=== PATIENT | male | born 1930 | race Caucasian/White ===

== ENCOUNTER 2016-03-25 12:56 | Inpatient (IN) | payer MEDICARE, OTHER ==
[2016-03-25] VITALS (7 sets, daily range): BP systolic 100–135; BP diastolic 54–68; PULSE 84–94; RESP 15–20; O2SAT 86–97
[~2016-03-25] VITALS: Ht 182.9 cm; Wt 87.6 kg
[2016-03-25 13:39] LABS: BASOPHILS % (AUTO) 0.5 % (0-3); EOSINOPHILS % (AUTO) 0.7 % (0-5); MONOCYTES % (AUTO) 9.5 % (4-12); Mean Corpuscular Hemoglobin 28.4 pg (27.0-35.0); Mean Corpuscular Volume 93.4 fL (81-100); NEUTROPHILS % (AUTO) 76.6 % (40-74); Platelet Count 105 bil/L (150-400)
--- NOTE | 2016-03-25 14:03 | DRSVH ---
PROCEDURE: X-RAY CHEST ONE VIEW, PORTABLE ([id number]) INDICATIONS: shortness of breath TECHNIQUE: One view of the chest was acquired. COMPARISON: [facility], CR, CHEST 2 VIEW, 01/25/2015, 13:40. [facility], CR, CHEST 2 VIEW , 06/26/2015, 11:58. [facility], CR, CHEST 1 VIEW, 07/09/2015, 17:03. [facility], CR , XR CHEST 1VW (PORTABLE), 10/24/2014, 13:24. FINDINGS: Surgical changes and devices: Median sternotomy. Lungs and pleura: No pleural effusions or pneumothorax. Moderate reticulonodular opacities present b ilaterally, as before, predominantly within the bilateral perihilar locations. There is superimposed mild increased opacity within the bilateral lung bases. Mediastinum: Mediastinal contours appear normal. Heart size is enlarged. Bones and chest wall: No suspicious bony lesions. Overlying soft tissues appear unremarkable. IMPRESSION: Mild basilar interstitial pulmonary opacity, superimposed on chronic appearing fibrosis, consistent with edema versus atypical pneumonia. Dictated by: Siobhan Lowery M.D. on 03/25/2016 at 14:00 Approved by: Siobhan Lowery M.D. on 03/25/2016 at 14:01
--- NOTE | 2016-03-25 14:20 | ED.REPORT ---
HPI-General Illness Date of Service Mar 25, 2016 ED Provider: Sancho Monique PA-C Jerry is a 86-year-old male with a history of CHF with pulmonary hypertension, A. fib, hypertension who presents with chief complaint of bilateral leg swelling. Patient states that the swelling in his legs became worse over the last 2 weeks consequently was progressed past his knees and thighs and now has significant swelling in his penis and testicles. He has gained over 20 pounds since onset. He also reports 3-4 month history of shortness of breath and reduced exercise tolerance. He is able to walk about 20-30 feet until he becomes shortness of breath. He is still able to sleep flat at night. Patient reports he was placed on "strong diuretic" by his primary care provider Dr. Duron on Wednesday however he discussed the case with his winemaker Dr. Poe who feels he should be admitted for IV diuresis. Denies chest pain, palpitations, upper respiratory symptoms, abdominal pain, nausea, vomiting or diarrhea. Nursing Notes Stated Complaint: SWELLING IN BOTH LEGS Chief Complaint: General Complaint Nursing Notes Reviewed: Yes Allergies: Coded Allergies: No Known Allergies (Unverified Allergy, Unknown, 03/30/14) General Time Seen by MD: 13:59 Chief Complaint Other (lower extremity swelling) Hx Obtained From: Patient Arrived By: Walk-in Sudden in Onset?: No Onset Occurred: More than a week ago... Symptom Duration: Since onset Location: : Leg left: Leg right Quality: Painful Radiation: : Does not radiate Severity: Current: Mild Severity: Maximum: Mild Recent Healthcare: No recent hospitalization Similar Sx Previous: No Past Medical History Past Medical History Notes: PCP: Dr. Yoo Past Medical History Emphysema CHF Atrial fibrillation Reports: COPD, Coronary artery disease, Diabetes mellitus, Hypertension Past Surgical History Abdominal aneurysm Popliteal Cyst removal Reports: CABG Family History Noncontributory Smoking History Former Smoker Social History Alcohol Use: "Social" Drug Use: Denies drug use Other Social History: Lives alone, Local resident Ambulatory Status Independent Review of Systems +testicular and penile swelling Full Review of Systems Constitutional: Denies: Chills, Fever Ears / Nose / Throat: Denies: Nasal congestion Respiratory: Reports: Dyspnea on exertion, Shortness of breath, Denies: Non-productive cough, Prod cough, bloody, Prod cough, brown, Prod cough, clear, Prod cough, green, Prod cough, yellow Cardiovascular: Denies: Chest pain, Palpitations GI: Denies: Abdominal pain, Diarrhea, Nausea, Vomiting Musculoskeletal: Reports: Extremity swelling Complete sys rev & neg: except as marked. Physical Exam Vital Signs Vital Signs Date Time Temp Pulse Resp B/P Pulse Ox O2 Delivery O2 Flow Rate FiO2 03/25/16 15:06 85 15 119/54 Room Air 03/25/16 13:04 36.6 87 18 118/68 92 Room Air Initial VS: Reviewed Head / Eyes: Atraumatic, Normocephalic, PERRL ENT: Mucous membranes moist, Conjunctiva normal, No scleral icterus Abdomen / GI: Soft, Non-tender, No guarding, No rebound, No distention Extremities: Vascular intact, Neuro intact, No swelling, No tenderness Skin: Warm, Dry, No cyanosis Neurologic: Alert, Oriented, Nonfocal Psychiatric: Mood/affect normal, Behavior normal, Normal thought content General/Constitutional: Awake, Alert Frail, sitting at the edge of the bed Neck: No midline vertebral tend Neck Vascular: Positive: JVD moderate Respiratory / Chest: Breath sounds = bilat, No respiratory distress Rales / Rhonchi: Positive: Rales diffuse Dyspneic with minimal exertion Cardiovascular: Heart rate NL, Regular rhythm, Heart sounds NL, No murmurs, No rubs, Cap refill not delayed, Peripheral circulation NL Lower Ext Edema: Positive: Bilateral 3+, Pitting Interpretation & Diagnostics Lab Results Interpretation Result Diagram: 03/25/16 1330 03/25/16 1330 Test 03/25/16 13:30 03/25/16 15:12 White Blood Count 5.9th/mm3 (3.8-10.1) Red Blood Count 3.35mil/mm3 (4.40-5.80) Hemoglobin 9.5g/dL (13.8-17.2) Hematocrit 31.3% (41.0-50.0) Mean Corpuscular Volume 93.4fL (81-100) Mean Corpuscular Hemoglobin 28.4pg (27.0-35.0) Mean Corpuscular Hemoglobin Concent 30.4% (32.0-37.0) Red Cell Distribution Width 16.7% (12.3-15.4) Platelet Count 105bil/L (150-400) Neutrophils (%) (Auto) 76.6% (40-74) Lymphocytes (%) (Auto) 12.5% (14-46) Monocytes (%) (Auto) 9.5% (4-12) Eosinophils (%) (Auto) 0.7% (0-5) Basophils (%) (Auto) 0.5% (0-3) Reticulocyte Count,Calculated 2.3% (0.6-2.6) Activated Partial Thromboplast Time 25.9sec (22.8-33.0) Sodium Level 139mEq/L (134-144) Potassium Level 3.4mEq/L (3.5-5.2) Chloride Level 93mEq/L (97-108) Carbon Dioxide Level 25mmol/L (18-29) Blood Urea Nitrogen 67mg/dL (8-27) Creatinine 2.64mg/dL (0.76-1.27) Estimat Glomerular Filtration Rate 25mL/min (>59) Glucose Level 182mg/dL (60-99) Calcium Level 9.3mg/dL (8.5-10.1) Total Bilirubin 1.3mg/dL (0.0-1.2) Aspartate Amino Transf (AST/SGOT) 27U/L (0-50) Alanine Aminotransferase (ALT/SGPT) 16U/L (0-44) Alkaline Phosphatase 119U/L (25-160) Troponin T 0.057ug/L (0.0-0.011) Pro-B-Type Natriuretic Peptide 3961pg/mL (0-486) Total Protein 6.9g/dL (6.4-8.4) Albumin 4.3g/dL (3.4-5.0) Thyroid Stimulating Hormone (TSH) 4.560uIU/mL (0.450-4.500) Hold Davis Top Tube Received (Received) Urine Color Straw (YELLOW) Urine Appearance Clear (CLEAR,HAZY) Urine pH 6.0 (5.0-8.0) Urine Specific [place] 1.005 (1.003-1.035) Urine Protein Negativemg/dL (NEG,TRACE) Urine Glucose (UA) Negativemg/dL (NEGATIVE) Urine Ketones Negativemg/dL (NEGATIVE) Urine Occult Blood Negative (NEGATIVE) Urine Nitrite Negative (NEGATIVE) Urine Bilirubin Negative (NEGATIVE) Urine Urobilinogen Normalmg/dL (NORMAL) Urine Leukocyte Esterase Negative (NEGATIVE) Urine RBC 0-2/hpf (0-2) Urine WBC 0-5/hpf (0-5) Urine Epithelial Cells Occasional/hpf (NONE-MOD) Urine Crystals None seen (NONE SEEN) Urine Bacteria None/hpf (NONE-FEW) Urine Hyaline Casts Occasional/lpf (NONE) Urine Granular Casts None seen (NONE SEEN) Urine Waxy Casts None seen (NONE SEEN) Urine Red Blood Cell Casts None seen (NONE SEEN) Urine White Blood Cell Casts None seen (NONE SEEN) Urine Mucus None seen (None Seen) Urine Trichomonas None seen (NONE SEEN) Urine Yeast None (NONE SEEN) Urinalysis Comment None Urine Culture Reflexed Not indicated Lab Results Interpretation: CBC nonspecific from cytopenia CMP worsening renal insufficiency, creatinine is increased from 2-2.64 Troponin elevated, difficult to interpret this first troponin in the setting of worsening renal insufficiency BNP elevated, also difficult to interpret in the setting of worsening renal insufficiency, clinical exam highly suggestive of congestive heart failure ECG Interpretation ECG Interpretation: I suspect the underlying rhythm is likely atrial flutter Occasional PVCs T wave inversion in V4-V6, I, and AVL that are more prominent then EKG dated 10/24/14 although they are hinted at V5 and V6 in the old EKG Rate: 74 Time: 13:22 Interpreted by: ED physician X-Ray Chest Interpretation Chest Xray Interpretation: IMPRESSION: Mild basilar interstitial pulmonary opacity, superimposed on chronic appearing fibrosis, consistent with edema versus atypical pneumonia. Dictated by: Siobhan Lowery M.D. on 03/25/2016 at 14:00 Interpretation / Wet Read by: Interpret - Radiologist Re-Eval/Medical Decision Med Decision/Clinical Course Dr Ayala. Patient was briefly evaluated by the mid-level provider, but I personally interviewed and examined this patient and following is my dictation. This is an 86-year-old male sent over by Dr. Wyatt in the cardiology clinic for evaluation and admission. The patient has an extensive prior cardiac history, and is followed for chronic CHF, admitted doing okay at the last visit December, presented to the clinic today with a 20+ pound weight gain , obvious CHF, dyspnea on exertion, JVD, Rales and was sent over for further management. The just been seen by the PCPs office and was started a new medication on Wednesday, this turns out to be Metalazone. (5mg). (We called the office to track down the medication change.) Patient has a history of chronic atrial fibrillation, but also has a prior history of intracranial hemorrhage event in the distant past, is on aspirin therapy alone. He denies any sense of chest pain, diaphoresis. On exam his clinical findings of CHF. He is dyspneic with any minimal exertion , and desaturates with minimal movement. He has +3 pitting edema, JVD, and Rales. His EKG has new T-wave abnormality compared to the last EKG that I have for available for comparison. Chest x-ray is consistent with CHF. Lab work demonstrates worsening renal function, elevated troponin, elevated BNP. Troponin elevation is difficult to interpret in the setting of the worsening renal insufficiency. His EKG findings are nonspecific. Symptoms have been progressing over 2 weeks, and acute myocardial infarction within the past day or 2 seems unlikely, recent cardiac event cannot be fully excluded at this time. The patient's systolic blood pressures only just over 125 so he did not have a lot "room" progressive medication. He received IV Lasix, and topical nitrates. He is being admitted for continued management. Case is discussed with the hospitalist and a cardiology consult has been requested. Source of Hx: Old records, Private physician Time of Eval: 14:38 Re-Evaluation/Progress Note: Discussed results, diagnosis, and plan for admission. All questions were addressed. Consultation #1: Referral / Consult Name: Rocael Spicer MD Consulted With: Hospitalist Call Returned at: 14:46 Glass Toughening Operator: Will see patient, Agrees with eval, Agrees with plan, Accepts admit Consultation #2: Referral / Consult Name: Jhonny Baumann MD Consulted With: Cardiology Call Returned at: 15:08 Glass Toughening Operator: Will see patient, Agrees with eval, Agrees with plan Differential Diagnosis: Negative: Abdominal pain, Allergies, Fracture, G-tube repair/replacement, Laceration, Malingering, Medical clearance, Neutropenia, Seizure disorder, Tonsillitis, acute Counseled Regarding: Diagnosis, Lab results, Need for admission Discharge & Departure Primary Impression: CHF (congestive heart failure) Congestive heart failure type: unspecified congestive heart failure type Congestive heart failure chronicity: unspecified congestive heart failure chronicity Qualified Code: I50.9 - Heart failure, unspecified Additional Impressions: Edema Edema type: unspecified Qualified Code: R60.9 - Edema, unspecified Acute renal insufficiency Chronic atrial fibrillation Troponin level elevated Disposition: ADMITTED TO HOSPITAL Discharge Condition All VS Reviewed: Yes Condition: Stable Referrals: Lam Duron MD (PCP) Khoa Attestation Portions of this note were transcribed by Nina Santos. I, Dr. Ayala personally performed the history, physical exam and medical decision-making; I reviewed and confirmed the accuracy of the information in the transcribed note. Signed by: Khoa Obrien, 03/25/2016 at 1555. copies to: Lam Duron MD, Seth PA-C Mar 25, 2016 14:20 Nina Santos Mar 25, 2016 14:26 Pineda Ayala MD Mar 25, 2016 16:03
[2016-03-25 14:21] LABS: TROPONIN T 0.057 ug/L (0.0-0.011)
[2016-03-25] MEDS ORDERED: Furosemide 10 mg/mL 10 mL Inj IVPUSH ONE (14:25)
[2016-03-25] MEDS ORDERED: Nitroglycerin 2% 1 Gm Ointment TOPICAL SCH (14:25)
[2016-03-25] MEDS ORDERED: Senna-Docusate 8.6-50 mg Tablet PO PRN (14:55)
[2016-03-25] MEDS ORDERED: Alum-Mag Hydrox-Simeth 30 mL Suspension PO PRN (14:55)
[2016-03-25] MEDS ORDERED: Polyethylene Glycol (PEG) 17 Gm Powder PO PRN (14:55)
[2016-03-25] MEDS ORDERED: Ondansetron 2 mg/mL 2 mL Inj IVPUSH PRN (14:55)
--- NOTE | 2016-03-25 15:11 | PCM.HPMED ---
Subjective Date of Service Mar 25, 2016 Primary Provider: Admitting Physician: Primary Care Physician: Lam Duron MD Attending Physician: Chief Complaint: Short of breath sent by cardroom attendant HISTORY was OBTAINED FROM PATIENT / [facility] NOTES History of present illness 86-year-old male, on asa for chronic afib, presented with bilateral leg swelling progressively, associated fluid overload of thighs penis testicles, 20 pound weight gain in 2 weeks, shortness of breath for months. No orthopnea. PCP/Alex started another diuretic 3 days ago-metolazone he has been compliant for 3 days and noticed increased UOP. he continued torsemide. Entry Level Sales Consultant Dr. Jefferson sent patient to ER for admission for IV diuresis. No chest pressure no palpitation no URI no diarrhea no vomiting no pain. No cough no nasal congestion In the ER Lasix 60, nitroglycerin 1 inch, 97.7 kg, w/ 500cc UOP Review of Systems - none of the following - F/C/sick contact / TOMAS / lightheaded / dizziness / sob / cough / cp / acid reflux / n/v/diarrhea / / / change in voiding / yeast infections / rash ambulates chronic bruising FAMILY HX NM CVA SOCIAL HX quit smoking when he underwent his 2nd CABG / etoh MEDICATIONS include asa Nitroglycerin patch TeraZosin, unclear if he is on Flomax Xopenex, Brovana lantaprost Past Medical/Surgical HX pulmonary hypertension, A. fib, hypertension, abdominal aneurysm, CABG x 2/NM Glaucoma Diabetes mellitus Emphysema Popliteal cyst Subdural hematoma-divya holes by [facility], off anticoagulation AAA repair at [place] Cholecystectomy with stones, performed because of possible mass, he was told that his liver was "shot" from EtOH likely, chronically elevated bilirubin BPH last saw urologist Dr. Patel mid 2015 Allergies Coded Allergies: No Known Allergies (Unverified Allergy, Unknown, 03/30/14) PMH Social History Hx Alcohol Use: Yes Hx Substance Use: No Smoking Status: Former Smoker Exam Vital Signs Vital Sign - Last Date Time Temp Pulse Resp B/P Pulse Ox O2 Delivery O2 Flow Rate FiO2 03/25/16 15:06 85 15 119/54 Room Air 03/25/16 13:04 36.6 92 Exam Exam on admission Room air, sitting upright, legs dangling NAD A and O x 3 mood affect WNL NC/AT no icterus no injected eyes EOMI PERRL /no pharyngeal lesions/ no oral lesions / hearing intact Supple neck equal chest rise / no accessory muscle use / speaks in full sentences /crackles left greater than right no wheeze RRR S1 S2 / no mrg / 2+ radial pulses Soft nt nd + BS no hepatosplenomegaly severe edema shins/thighs bilateral, no cyanosis no ecchymosis of lower extremities No rash / no jaundice BERNSTEIN symmetrical facies diffuse upper extremity bruising/hematomas superficial uop 500cc in urinal clear s/p 60 laxis EKG afib fltter PVCs Trop 0.05 at 1pm BNP 3961 UA pending LFT normal except bilirubin 1.3 Imaging PROCEDURE: X-RAY CHEST ONE VIEW, PORTABLE ([id number]) INDICATIONS: shortness of breath TECHNIQUE: One view of the chest was acquired. COMPARISON: [facility], CR, CHEST 2 VIEW, 01/25/2015, 13:40. [facility], , CHEST 2 VIEW, 06/26/2015, 11:58. [facility], CR, CHEST 1 VIEW , 07/09/2015, 17:03. [facility], CR, XR CHEST 1VW (PORTABLE), 2014, 13:24. FINDINGS: Surgical changes and devices: Median sternotomy. Lungs and pleura: No pleural effusions or pneumothorax. Moderate reticulonodular opacities present bilaterally, as before, predominantly within the bilateral perihilar locations. There is superimposed mild increased opacity within the bilateral lung bases. Mediastinum: Mediastinal contours appear normal. Heart size is enlarged. Bones and chest wall: No suspicious bony lesions. Overlying soft tissues appear unremarkable. IMPRESSION: Mild basilar interstitial pulmonary opacity, superimposed on chronic appearing fibrosis, consistent with edema versus atypical pneumonia. 09/2015 echo - Interpretation Summary The left ventricle is grossly normal size. The ejection fraction is estimated to be 40-45% (No sig. change from the previous study). There is inferior wall severe hypokinesis. There appears to be severe hypokinesis of inferoseptum, distal posterolateral wall, anteroseptum and the inferoapex. Compared to the prior exam, the base to mid inferior wall and base to mid inferoseptum wall motion abnormalities has increased in severity. The right ventricle is normal size. The right ventricular systolic function is normal. There is mild to moderate mitral regurgitation. Compared to the prior echo study, there has been no change in the severity of mitral regurgitation. There is mild aortic regurgitation. Compared to the prior echo study, there has been no change in the severity of aortic regurgitation. There is moderate to severe tricuspid regurgitation. Compared to the prior echo exam, there has been no change in TR severity. The right ventricular systolic pressure is estimated at 70 mmHg assuming a right atrial pressure of 15 mm Hg. Compared to the prior echo exam, there has been no change in the severity of pulmonary hypertension. Lab and Diagnostics Result Diagram: 03/25/16 1330 03/25/16 1330 Assessment & Plan Active issues present on admission Exacerbation sCHF with more frequent PVCs, WENDY and left shift without leukocytosis --serial trop, echo, i/o, wt daily, fluid restrict --Dr. Baumann to evaluate patient in morning AK I, associated fluid overload, PVCs -- Diurese lasix 60 QDay, pending bladder scan, monitor BP -- already s/p 3 days of outpt metalozone -- Baseline creatinine2 12/2015 --replete K and prn Magnesium Normocytic anemia --pending TSH Thrombocytopenia w/ elevated bilirubin mild --pending - b12, liver/spleen u/s, PTT/INR Chronic issues known prior to admission, present on admission pulmonary hypertension, A. fib, hypertension, abdominal aneurysm, CABG x 2/NM Glaucoma Diabetes mellitus Emphysema --ssi/ nebs prn -- Pending bladder scan, switched to Flomax from TeraZosin while diuresing/ monitoring blood pressure --resume home medications Diet fluid restrict 1.5L/ DM/cardiac diet/sliding scale insulin DVT prophylaxis scd ambulate / hold heparin - monitor thrombocytopenia Code full Disposition inpatient Assessment and plan were discussed with patient Rocael Spicer MD Mar 25, 2016 15:11
[2016-03-25 15:31] LABS: APPEARANCE,URINE CLEAR (CLEAR,HAZY); COLOR,URINE STRAW (YELLOW); OCCULT BLOOD,URINE NEGATIVE (NEGATIVE); UROBILINOGEN,URINE NORMAL (NORMAL)
--- NOTE | 2016-03-25 17:15 | NUR ---
Admission Patient arrived on unit via gurney. Patient alert and oriented. Using urinal at bedside. Denies current chest pain/shortness of breath. Pitting edema from groin down. Patient on 1.5 ltr fluid restriction, room air, nitro paste on chest from ER. Exam interrupted by Echo.
[2016-03-25] MEDS ORDERED: Potassium Chloride 20 mEq SR Tablet PO ONE (17:25)
[2016-03-25] MEDS ORDERED: Albuterol-Ipratropium 3 mL Inhalation Solution NEB PRN (17:30)
[2016-03-25 17:51] LABS: Magnesium 2.6 mg/dL (1.6-2.6)
[2016-03-25] MEDS: Sodium Chloride LOK Flush 10 mL Syringe IVFLUSH SCH (18:26)
[2016-03-25] MEDS ORDERED: NITR1PAT59 TRANSDERM (18:57)
[2016-03-25] MEDS ORDERED: INSU100I13 SUBQ (18:57)
[2016-03-25] MEDS ORDERED: DORZ10DR18 BOTH_EYES (18:57)
[2016-03-25] MEDS ORDERED: ATOR20TA65 PO (18:57)
[2016-03-25] MEDS ORDERED: BRIM5DRO9 LEFT_EYE (18:57)
[2016-03-25] MEDS ORDERED: FOSI20TA3 PO (18:57)
[2016-03-25] MEDS ORDERED: TORS20TA3 PO (18:57)
[2016-03-25] MEDS ORDERED: LATA2.5D6 BOTH_EYES (18:57)
[2016-03-25] MEDS ORDERED: TERA10CA5 PO (18:57)
[2016-03-25] MEDS ORDERED: ZYL100 PO (18:57)
[2016-03-25] MEDS ORDERED: METO25TA3 PO (18:57)
[2016-03-25] MEDS ORDERED: METF500T7 PO (18:57)
--- NOTE | 2016-03-25 19:42 | DRSVH ---
PROCEDURE: US ABDOMEN INDICATIONS: elevated bilirubin and eval splenolmegaly TECHNIQUE: Real-time scanning was performed of the abdominal and retroperitoneal organs, with image documentatio n. COMPARISON: None. FINDINGS: Liver length: 16.40 cm CHD: 5.10 mm CBD: 6.20 mm Spleen length: 15.2 cm Right kidney length: 10.78 cm Left kidney length: 10.77 cm Aorta(Proximal): 3.18 cm RCIA: n.a LCIA: n.a Liver: Liver is normal in size and diffusely increased and heterogeneous echotexture. There is hepa topedal flow of portal vein on both ultrasound. Gallbladder: Gallbladder is surgically removed Biliary ducts: Intrahepatic bile ducts are non-dilated. Extrahepatic bile duct caliber is normal. Normal is 6-7 mm or less in diameter, or 10 mm or less post-cholecystectomy. Pancreas: Pancreas is poorly visualized. Spleen: Spleen is enlarged with the estimated volume of 529 cubic centimeter. Kidneys: Kidneys are normal in size and echotexture. No hydronephrosis or nephrolithiasis. No kinsey d masses. There is a one point centimeters simple cyst in the inferior pole of the left kidney. Aorta: Proximal abdominal aorta is mildly aneurysmal measuring 3.2 cm in diameter. The mid to distal aorta is not well-seen. Iliacs: Proximal common iliac arteries are obscured by overlying bowel gas. IVC: Intrahepatic inferior vena cava is patent. Miscellaneous: There is a small amount of abdominal fluid. IMPRESSION: 1. Liver demonstrates heterogeneously increased echotexture, suspicious for chronic liver disease suc h as hepatitis or cirrhosis. 2. Enlarged spleen. This finding may be secondary to portal hypertension. 3. cholecystectomy. 4. Simple cyst in the lower pole of the left kidney. 5. Mild proximal abdominal aortic aneurysm. Mid to distal aorta not well visualized. 6. A small amount of free fluid. Dictated by: Emilia Gonzalez M.D. on 03/25/2016 at 19:34 Approved by: Emilia Gonzalez M.D. on 03/25/2016 at 19:41
[2016-03-25 20:18] LABS: INR 1.12 ratio
--- NOTE | 2016-03-25 20:30 | NUR ---
MED REC NOT COMPLETED> Requested record from PCP or [facility] Cardiology for recent list. Primary nurse aware.
[2016-03-25 20:36] LABS: Magnesium 2.5 mg/dL (1.6-2.6)
[2016-03-25 20:37] LABS: TROPONIN T 0.046 ug/L (0.0-0.011)
[2016-03-25] MEDS ORDERED: Glucose 40% Oral Gel 15 Gm Tube PO PRN (21:35)
[2016-03-25] MEDS: Insulin LISPRO 300 Unit/3 mL Inj SUBQ SCH (22:00)
[2016-03-25] MEDS: Insulin GLARgine 100 Unit/mL Syringe SUBQ SCH (23:42)
[2016-03-25] MEDS: Dorzolamide 2% 10 mL Ophthalmic Solution BOTH_EYES SCH (23:43)
[2016-03-25] MEDS: Brimonidine 0.2% 5 mL Ophthalmic Solution BOTH_EYES SCH (23:46)
[2016-03-26] VITALS (9 sets, daily range): BP systolic 107–118; BP diastolic 47–71; PULSE 59–98; RESP 16–18; O2SAT 91–96
[2016-03-26] MEDS: Sodium Chloride LOK Flush 10 mL Syringe IVFLUSH SCH ×3 (02:57→15:40)
--- NOTE | 2016-03-26 04:47 | NUR ---
Bladder Patient was bladder scanned after urinating, remaining was 535ml in bladder. Alatorre catheter inserted per orders if remaining volume was greater than 250ml. Catheter is patent. Patient resting, call light within reach. Urine sample sent.
[2016-03-26] MEDS: Furosemide 10 mg/mL 10 mL Inj IVPUSH SCH ×2 (07:48→21:44)
[2016-03-26] MEDS: Insulin LISPRO 300 Unit/3 mL Inj SUBQ SCH ×4 (07:48→21:50)
[2016-03-26] MEDS: MeTOProlol XL 25 mg ER24 Tablet PO SCH (07:49)
[2016-03-26] MEDS: Dorzolamide 2% 10 mL Ophthalmic Solution BOTH_EYES SCH ×2 (07:50→21:44)
[2016-03-26] MEDS: Brimonidine 0.2% 5 mL Ophthalmic Solution BOTH_EYES SCH ×2 (07:50→21:44)
[2016-03-26 08:02] LABS: BASOPHILS % (AUTO) 0.4 % (0-3); EOSINOPHILS % (AUTO) 2.5 % (0-5); MONOCYTES % (AUTO) 11.3 % (4-12); Mean Corpuscular Hemoglobin 28.2 pg (27.0-35.0); Mean Corpuscular Volume 92.8 fL (81-100); Platelet Count 96 bil/L (150-400)
[2016-03-26 08:07] LABS: Phosphorus 4.1 mg/dL (2.5-4.9)
[2016-03-26] MEDS ORDERED: Furosemide 10 mg/mL 10 mL Inj IVPUSH SCH (08:30)
[2016-03-26 08:40] LABS: Magnesium 2.6 mg/dL (1.6-2.6)
[2016-03-26 08:41] LABS: TROPONIN T 0.051 ug/L (0.0-0.011)
--- NOTE | 2016-03-26 13:42 | DRSVH ---
[facility] [address] [place] [address] Echocardiogram Report Name: XIOMARA CONNORS Date : 03/26/2016 Leanna t: 71 in Hospital Exam Location: [facility] Weigh t: 207 lb Gender: Male BSA: 2.2 m2 : 1930 Age: 86 yrs BP: 1 17/59 mmHg Reason For Study: Congestive Heart Failure History: CABG Ordering Physician: HOSPITALIST [facility] Performed By: Adelaida Gasca Referring Physician: Ciara Dubois Interpretation Summary The left ventricle is normal in size. Left ventricular wall thickness is mild-moderately increased. The ejection fraction is estimated to be 45-50%. The right ventricle is normal size. The right ventricular systolic function is normal. There is moderate to severe tricuspid regurgitation. The right ventricular systolic pressure is estimated at 60 mmHg assuming a right atrial pressure of 15 mm Hg. The IVC is dilated (diameter is greater than 2.1 cm) and it collapses less than 50% with a sniff. This suggests a high right atrial pressure of 15 mm Hg. There is no pericardial effusion. No other echocardiographic abnormalities seen. Compared with the prior exam from 09/16/1915, LV systolic function appears mildly improved. The estimated PA pressure is slightly lower. No other significant changes. Procedure: A two-dimensional transthoracic echocardiogram with color flow and Doppler was performed. The study quality was technically difficult. A contrast injection of Definity was performed to improve assessment of LV function. The patient did well with Definity. Comparison is made with the echocardiogram of 09/16/2015. The patient had occasional PVCs during the exam. Left Ventricle: Left ventricular wall thickness is mild-moderately increased. The left ventricle is normal in size. There is no thrombus. The ejection fraction is estimated to be 45-50%. There is apical inferior wall severe hypokinesis. Diastolic function could not be accurately assessed due to atrial fibrillation. Right Ventricle: The right ventricle is normal size. The right ventricular systolic function is normal. Atria: There is severe biatrial enlargement. The atrial septum is aneurysmal. There is no Doppler evidence for an interatrial shunt. Mitral Valve: There is mild mitral annular calcification. The mitral valve leaflets appear thickened, but open well. There is mild mitral regurgitation. Aortic Valve: The aortic valve is not well visualized. There is moderate aortic valve sclerosis. A bicuspid aortic valve cannot be excluded. There is no aortic valve stenosis. There is trace aortic regurgitation. Tricuspid Valve: The tricuspid valve leaflets are thin and pliable. There is moderate to severe tricuspid regurgitation. The right ventricular systolic pressure is estimated at 60 mmHg assuming a right atrial pressure of 15 mm Hg. Pulmonic Valve: The pulmonic valve is not well visualized. There is a trace or physiologic amount of pulmonic regurgitation. Great Vessels: The aortic root is mildly dilated. The ascending aorta is mildly enlarged. The IVC is dilated (diameter is greater than 2.1 cm) and it collapses less than 50% with a sniff. This suggests a high right atrial pressure of 15 mm Hg. Pericardium/ Pleura There is no pericardial effusion. MMode/2D Measurements & Calculations LVIDd: 5.1 cm LA dimension: 4.4 cm RA long axis LVOT diam LVIDs: 4.0 cm FS: 23.1 % LA A2 area: 35.2 cm RA area AoV Opening IVSd: 1.4 cm LA A4 area: 30.8 cm LVPWd: 1.2 cm LA length (vol): 7.1 cm: 30.8 cm Ao root diam LA vol: 129.6 ml RA vol LA vol index : 115.ml Aortic Jxn RA : 53.3 mm2 asc Aorta IVC diam: 2.9 cm Diam: 3.6 cm LV burnette. diameter/BSA LV sys. diameter/BSA RVD1 (basal) TAPSE: 1.3 cm (cm/m^2): 2.4 (cm/m^2): 1.8 Doppler Measurements & Calculations Ao V2 max MV E max alexandre Med Peak E' Alexandre TR max alexandre : 171.0 cm/sec : 103.5 cm/sec : 335.3 cm/sec Ao max P.7 mmHg E/E' med: 13.2 TR max PG Ao mean P.3 mmHg Lat Peak E' Alexandre : 45.1 mmHg LVOT Max Alexandre PA V2 max : 96.2 cm/sec E/E' lat: 9.7 : 85.7 cm/sec E/e' average PA mean PG KENDELL(I,D): 2.1 cm sev ratio: 0.53 PA Accel Time : 0.10 sec MV dec time: 0.17 sec Ao V2 mean LV V1 max PG PA V2 mean : 118.8 cm/sec : 51.9 cm/sec Ao V2 VTI: 33.3 cmLV V1 VTI: 17.6 cm KENDELL(V,D): 2.2 cm2 KENDELL indexed to BSA (cm^2/m^2): 0.95 Reading Physician:01:41 PM
--- NOTE | 2016-03-26 15:02 | NUR ---
spiritual care: pt request Visited with pt who was interested in talking about stephan and mortality. Had an in depth conversation about his spiritual life and thoughts on the after life. Pt would like another visit from a plan rep tomorrow if possible. Spiritual care will continue to follow.
--- NOTE | 2016-03-26 15:36 | CONS ---
[address] [address] CONSULTATION REPORT PATIENT: XIOMARA CONNORS : 1930 MR#: [id number] ADMIT: 03/25/2016 JOB ID: [id number] DATE OF SERVICE: 03/26/2016 CARDIOLOGY CONSULTATION: I have been asked by the hospitalist to see the patient and assist with his evaluation and management. The patient is a delightful 86-year-old gentleman with a long history of chronic ischemic heart disease and peripheral arterial disease who has a history over the past four months of progressive dyspnea and was seen by Dr. Poe yesterday in the clinic with evidence of anasarca and a 20-30 pounds weight gain over the past 2-3 weeks. He had been started up on additional diuretic therapy by his primary care provider, but Dr. Poe rightly thought that he would benefit from hospitalization for aggressive intravenous diuretic therapy and further evaluation. The patient's past cardiac history dates back to 1982 when he underwent five-vessel coronary bypass graft surgery in [place]. Ten years later, he underwent repeat cardiac surgery in [place] with a six-vessel bypass graft surgery. He has had fairly significant venectomies in both lower extremities as a result. He has done well over the years since without symptoms of angina and previous echocardiograms have demonstrated inferior or inferoapical left ventricular wall motion abnormality with overall ejection fractions estimated in the 40-50 range. The patient also has a history of COPD with a past history of smoking. His evaluation including multiple CT scans in the past has demonstrated evidence of emphysema but also in the past four years he has had a persistent left mid lung field infiltrate with mediastinal adenopathy which has not progressed, but is slightly improved during that period of time, but the etiology remains obscure. In recent months he was aware of increased dyspnea in addition to intermittent episodes of hemoptysis and was referred by his primary care physician to a mobility specialist in [place] who felt that he might have lung cancer. He apparently was hospitalized and underwent an evaluation which included bronchoscopy which was indeterminate. They discussed with him the possibility of doing a transcutaneous biopsy but he was not interested in proceeding further. This gentleman wears oxygen at home most of the time which he has done for the past few months. He has not had recent symptoms of hemoptysis but admits to functional class three dyspnea and perhaps some symptoms of orthopnea. His lower extremity edema was quite prominent and rapidly evolved to include his thighs, hips and scrotal area. The patient also has a history of chronic atrial fib or atypical flutter. He is not on anticoagulation due to history of head trauma and subdural hematoma in the past. His other medical problems include some degree of hepatic cirrhosis and splenomegaly recently identified. He is anemic. He has chronic renal insufficiency and diabetes. He underwent endovascular repair of an abdominal aortic aneurysm in [place] within the last few years as well. MEDICATIONS: Included: 1. Allopurinol. 2. Low-dose aspirin daily. 3. Pulmonary bronchodilator inhalers and oxygen therapy. 4. Colchicine as needed for gout. 5. Crestor 20 mg a day. 6. Lisinopril 20 mg daily. 7. Insulin. 8. Metformin 1000 mg in the morning and 500 mg in the morning and evening. 9. He was recently started up on metolazone 5 mg a day. 10. He was on low-dose metoprolol at 25 mg succinate daily. 11. In addition to a Nitro-Dur transdermal patch 0.4 mg/hour. 12. Potassium chloride 8 mEq daily. 13. Terazosin 10 mg daily. 14. Torsemide 40 mg b.i.d. REVIEW OF SYSTEMS: Include muscle weakness, easy bruising in addition to his weight gain, edema and chronic dyspnea. He denies any angina or any awareness of his palpitations. He has had no syncope or near syncope. ALLERGIES: None known. SOCIAL HISTORY: This patient lives by himself in [place]. He is able to take care of all of his usual activities and chores without any difficulty generally. PHYSICAL EXAMINATION: Shows a very pleasant, youthful appearing 86-year-old gentleman, 6 feet tall and 210 pounds. He has a slight jaundiced appearance. He has diffuse ecchymoses over both forearms with scattered petechiae noted elsewhere. His jugular venous pressure is markedly elevated. His lung gallo actually sound reasonably clear with some degree of egophony in the left mid lung field, but I do not hear any obvious rales or wheezes. Cardiac examination demonstrates an irregularly irregular rhythm. The first heart sound is somewhat variable, second heart sound is single. I do not hear a ventricular gallop. There is a grade 2/6 holosystolic murmur heard along the lower left sternal border. Abdomen is moderately protuberant but I do not detect obvious ascites. The liver edge is not readily palpable nor is the spleen. He has no abdominal tenderness. He has 4+ lower extremity edema with bilaterally venectomy scars and mild venous insufficiency changes. No focal neurologic findings noted. LABORATORY WORK: Is notable for a mild hypokalemia this morning. His creatinine is high at 2.6 with a baseline in the region of 2-2.3. Blood sugar is moderately increased at 182. His total bilirubin 1.3. Troponin levels are moderately elevated but without any rise and fall. TSH level is borderline high. BNP is moderately increased at 3961. He is anemic with a hemoglobin of 8.6, hematocrit of 28.3. His white count is normal but his platelet count is low at 96,000. A ProTime is normal. Chest x-ray shows evidence of previous surgery. Significant increase in pulmonary interstitial infiltrates in both lower lung gallo. He has evidence of moderate aortic root calcification. EKG shows a low amplitude atypical flutter with variable conduction. No diagnostic Q-waves noted. Nonspecific ST and T-wave abnormalities seen. IMPRESSION: This gentleman presents with a rapidly progressive edema related to high central venous filling pressures in the setting of moderate chronic pulmonary hypertension. In part this may be related to a decline in his renal function since his echocardiogram does not show significant changes. His pulmonary hypertension is likely secondary to his chronic obstructive lung disease with a combination of emphysema, chronic pulmonary infiltrates and mediastinal adenopathy and some question about possible lung cancer. He has evidence of mild hepatic cirrhosis with splenomegaly and thrombocytopenia. The etiology of his hepatic cirrhosis is not certain. He has had a martini he states on a regular basis for the past 30 years, but does not have a history of remarkably heavy alcohol intake. He may have had some degree of chronic hepatic congestion to account for this as well. At this point, I think it is reasonable to be aggressive with intravenous diuretic therapy. Intravenous Lasix and I would go ahead and add spironolactone to help with his potassium, particularly in the setting of his liver disease. In addition, I would pursue gathering further information regarding the extent of his pulmonary disease. Records from his recent hospitalization at [facility] and his pulmonary evaluation I think would be useful. One of my partners will be seeing this gentleman tomorrow and over the weekend for followup.
--- NOTE | 2016-03-26 17:43 | PCM.PNMED ---
Subjective Date of Service Mar 26, 2016 Subjective Patient reports that he is doing well overall. Patient notes that the edema in his scrotum and thighs seems to be decreasing. Patient reports some intermittent shortness of breath. Patient denies any chest pain, nausea, vomiting, diarrhea, fever or chills. Exam Vital Signs Vital Sign - Last Date Time Temp Pulse Resp B/P Pulse Ox O2 Delivery O2 Flow Rate FiO2 03/26/16 15:58 36.6 84 18 111/62 93 Nasal Cannula 2.00 Intake and Output 03/25/16 03/25/16 03/26/16 Cumulative From/Thru 15:00 23:00 07:00 03/25/16 13:04 - 03/26/16 06:11 Intake Total 200 ml 400 ml 600 ml Output Total 500 ml 2385 ml 2885 ml Balance -300 ml -1985 ml -2285 ml Intake Oral 200 ml 400 ml 600 ml Output Urine Total 500 ml 2385 ml 2885 ml # Voids 1 1 # Bowel Movements 1 1 Exam General: No acute distress, well-developed, well-nourished, appropriately interactive HEENT: Normocephalic, atraumatic. External ears without defect. Moist conjunctivae. Oropharynx with moist mucosa. Neck: Supple with full range of motion. Cardiovascular: Regular rate and rhythm with no murmurs, rubs, or gallops appreciated Pulmonary: Clear to auscultation bilaterally with no crackles, wheezes, or rhonchi. Normal respiratory effort with no use of accessory muscles. Abdomen: Bowel tones present. Soft, nontender, nondistended. Extremities: 2-3+ pitting edema of the lower extremities bilaterally. Chronic venous stasis changes bilaterally. Scrotum no longer edematous Psychiatric: Normal mood and affect. Alert and oriented to person, place, and time. IVs and Medications Medications Reviewed: Medications were reviewed in detail Lab and Diagnostics Result Diagram: 03/26/1662903/26/16629 X-Rays, CTs and MRIs PROCEDURE: X-RAY CHEST ONE VIEW, PORTABLE ([id number]) INDICATIONS: shortness of breath TECHNIQUE: One view of the chest was acquired. COMPARISON: [facility], CHEST 2 VIEW, 01/25/2015, 13:40. [facility], CHEST 2 VIEW, 06/26/2015, 11:58. [facility], CR, CHEST 1 VIEW , 07/09/2015, 17:03. [facility], CR, XR CHEST 1VW (PORTABLE), 2014, 13:24. FINDINGS: Surgical changes and devices: Median sternotomy. Lungs and pleura: No pleural effusions or pneumothorax. Moderate reticulonodular opacities present bilaterally, as before, predominantly within the bilateral perihilar locations. There is superimposed mild increased opacity within the bilateral lung bases. Mediastinum: Mediastinal contours appear normal. Heart size is enlarged. Bones and chest wall: No suspicious bony lesions. Overlying soft tissues appear unremarkable. IMPRESSION: Mild basilar interstitial pulmonary opacity, superimposed on chronic appearing fibrosis, consistent with edema versus atypical pneumonia. Dictated by: Siobhan Lowery M.D. on 03/25/2016 at 14:00 Approved by: Siobhan Lowery M.D. on 03/25/2016 at 14:01 PROCEDURE: US ABDOMEN INDICATIONS: elevated bilirubin and eval splenolmegaly TECHNIQUE: Real-time scanning was performed of the abdominal and retroperitoneal organs, with image documentation. COMPARISON: None. FINDINGS: Liver length: 16.40 cm CHD: 5.10 mm CBD: 6.20 mm Spleen length: 15.2 cm Right kidney length: 10.78 cm Left kidney length: 10.77 cm Aorta(Proximal): 3.18 cm RCIA: n.a LCIA: n.a Liver: Liver is normal in size and diffusely increased and heterogeneous echotexture. There is hepatopedal flow of portal vein on both ultrasound. Gallbladder: Gallbladder is surgically removed Biliary ducts: Intrahepatic bile ducts are non-dilated. Extrahepatic bile duct caliber is normal. Normal is 6-7 mm or less in diameter, or 10 mm or less post-cholecystectomy. Pancreas: Pancreas is poorly visualized. Spleen: Spleen is enlarged with the estimated volume of 529 cubic centimeter. Kidneys: Kidneys are normal in size and echotexture. No hydronephrosis or nephrolithiasis. No solid masses. There is a one point centimeters simple cyst in the inferior pole of the left kidney. Aorta: Proximal abdominal aorta is mildly aneurysmal measuring 3.2 cm in diameter. The mid to distal aorta is not well-seen. Iliacs: Proximal common iliac arteries are obscured by overlying bowel gas. IVC: Intrahepatic inferior vena cava is patent. Miscellaneous: There is a small amount of abdominal fluid. IMPRESSION: 1. Liver demonstrates heterogeneously increased echotexture, suspicious for chronic liver disease such as hepatitis or cirrhosis. 2. Enlarged spleen. This finding may be secondary to portal hypertension. 3. cholecystectomy. 4. Simple cyst in the lower pole of the left kidney. 5. Mild proximal abdominal aortic aneurysm. Mid to distal aorta not well visualized. 6. A small amount of free fluid. Dictated by: Emilia Gonzalez M.D. on 03/25/2016 at 19:34 Approved by: Emilia Gonzalez M.D. on 03/25/2016 at 19:41 Cardiac Echo Impressions Interpretation Summary The left ventricle is normal in size. Left ventricular wall thickness is mild-moderately increased. The ejection fraction is estimated to be 45-50%. The right ventricle is normal size. The right ventricular systolic function is normal. There is moderate to severe tricuspid regurgitation. The right ventricular systolic pressure is estimated at 60 mmHg assuming a right atrial pressure of 15 mm Hg. The IVC is dilated (diameter is greater than 2.1 cm) and it collapses less than 50% with a sniff. This suggests a high right atrial pressure of 15 mm Hg. There is no pericardial effusion. No other echocardiographic abnormalities seen. Compared with the prior exam from 09/16/1915, LV systolic function appears mildly improved. The estimated PA pressure is slightly lower. No other significant changes. Reading Physician:01:41 PM Assessment & Plan Exacerbation sCHF with more frequent PVCs -After discussing the case with Dr. Baumann of cardiology it was decided that the patient does not in fact have congestive heart failure Acute anasarca secondary to tricuspid regurgitation, pulmonary hypertension, and renal insufficiency -Echocardiogram performed today please see Dr. Baumann report -Continue to diurese patient with Lasix IV 60 mg twice a day -Monitor I's and O's carefully -BNP tomorrow -Repeat chest x-ray in the morning Chronic kidney disease, is not on admission, ongoing -Monitor labs daily -Nephrology has been consulted to assist with managing elevated creatinine and anasarca Chronic anemia likely secondary to chronic kidney disease -Continue to monitor Thrombocytopenia, present on admission, ongoing -Ultrasound demonstrating heterogeneously increased echotexture suspicious for chronic liver disease such as hepatitis or cirrhosis -Recommend patient has outpatient follow-up regarding this issue Chronic issues known prior to admission, present on admission pulmonary hypertension, A. fib, hypertension, abdominal aneurysm, CABG x 2/VT Glaucoma Diabetes mellitus Emphysema Diet fluid restrict 1.5L/ DM/cardiac diet/sliding scale insulin DVT prophylaxis scd ambulate / hold heparin - monitor thrombocytopenia Code full Attending Statement The patient was seen and examined together with Dr. Jones on 03-26-16 and I agree with the history, exam and plan as outlined in the note above. Fauzia Jones DO Mar 26, 2016 17:42 Brenna Melgar MD Mar 27, 2016 08:45
--- NOTE | 2016-03-26 18:12 | NUR ---
Uneventful shift Pt has rested quietly thorough out shift, A/OX3, no complains of chest discomfrt/pressure, SOB or N/V. Edema decreasing bilaterally in lower extremities. 2L O2 via NC, pt uses O2 at home, santana catheter draining yellow urine to gravity. Frequent rounding in place, will continue to monitor.
[2016-03-26] MEDS ORDERED: Insulin GLARgine 100 Unit/mL Syringe SUBQ SCH (21:00)
[2016-03-26] MEDS: Insulin GLARgine 100 Unit/mL Syringe SUBQ SCH (21:48)
[2016-03-27] VITALS (10 sets, daily range): BP systolic 100–113; BP diastolic 40–74; PULSE 65–83; RESP 15–18; O2SAT 91–97
[2016-03-27] MEDS: Sodium Chloride LOK Flush 10 mL Syringe IVFLUSH SCH ×4 (01:14→20:17)
--- NOTE | 2016-03-27 04:53 | NUR ---
Shift Note Pt has been resting on and off throughout shift, on 2L via NC, fluid restriction 1500mL, santana drained 2500mL, Lasix 60mg IVP BID, A&Ox3, ind. to bathroom w/ mild SOB but otherwise no c/o of SOB. Bed down and locked, call light in reach.
[2016-03-27 06:30] LABS: MONOCYTES % (AUTO) 13.9 % (4-12)
[2016-03-27 06:37] LABS: BASOPHILS % (AUTO) 0.6 % (0-3); EOSINOPHILS % (AUTO) 2.6 % (0-5); Mean Corpuscular Hemoglobin 27.6 pg (27.0-35.0); Mean Corpuscular Volume 93.1 fL (81-100); NEUTROPHILS % (AUTO) 64.4 % (40-74); Platelet Count 101 bil/L (150-400)
[2016-03-27] MEDS: Furosemide 10 mg/mL 10 mL Inj IVPUSH SCH ×2 (07:56→20:16)
[2016-03-27] MEDS: Dorzolamide 2% 10 mL Ophthalmic Solution BOTH_EYES SCH ×2 (07:57→20:15)
[2016-03-27] MEDS: Insulin LISPRO 300 Unit/3 mL Inj SUBQ SCH ×4 (07:57→20:15)
[2016-03-27] MEDS: Brimonidine 0.2% 5 mL Ophthalmic Solution BOTH_EYES SCH ×2 (07:57→20:15)
[2016-03-27] MEDS: MeTOProlol XL 25 mg ER24 Tablet PO SCH (07:57)
[2016-03-27] MEDS ORDERED: KCl 40 mEq/D5W 500 mL 40 MEQ in IV Premix 1 EACH IV ONE (08:10)
--- NOTE | 2016-03-27 08:22 | DRSVH ---
PROCEDURE: X-RAY CHEST ONE VIEW, PORTABLE ([id number]) INDICATIONS: cough TECHNIQUE: One view of the chest was acquired. COMPARISON: [facility], CR, XR CHEST 1VW (PORTABLE), 03/25/2016, 13:38. FINDINGS: Surgical changes and devices: Post median sternotomy. Lungs and pleura: Interstitium is prominent mild edema is suspected. There is interval increase in a irspace opacity within the right upper lobe. No pleural effusion or pneumothorax. Mediastinum: Mediastinal contours appear normal. Heart size is normal. Bones and chest wall: No suspicious bony lesions. Overlying soft tissues appear unremarkable. Mult iple healed left posterior-lateral rib fractures. IMPRESSION: Pulmonary edema is suspected and airspace opacity within the right upper lobe suspicious for pneumonia. Dictated by: Suhail Cavanaugh [facility] Interpreted: Emily Donis MD on 03/27/2016 at 8:20 Transcribed by: VALERIA on 03/27/2016 at 8:22 Approved by: Emily Donis M.D. on 03/27/2016 at 16:00
[2016-03-27] MEDS ORDERED: 0.9% Sodium Chloride 250 ML ONE (10:10)
--- NOTE | 2016-03-27 11:01 | NUR ---
spiritual care: follow up Visited with pt who spoke of family and stephan. Blessed him before leaving the room. Spiritual care will continue to follow as needed.
[2016-03-27] MEDS: Potassium Chloride 20 mEq SR Tablet PO SCH (12:06)
--- NOTE | 2016-03-27 14:46 | CONS ---
[address] [address] CONSULTATION REPORT PATIENT: XIOMARA CONNORS : 1930 MR#: [id number] ADMIT: 03/25/2016 JOB ID: [id number] DATE OF SERVICE: 03/27/2016 RENAL CONSULTATION: HISTORY OF PRESENT ILLNESS: The patient is a very pleasant and spry-appearing 86-year-old white male who was admitted for what appears to be decompensated heart failure. He also has evidence of chronic kidney disease and renal consultation is being sought for further evaluation and management of his chronic kidney disease and assisting with his diuresis. He has a very extensive cardiac history and has had several myocardial infarctions beginning in 1976. In 1982 he underwent a coronary artery bypass graft and this was repeated again 10 years later in 1992. Since that time he states that he has been doing well. He is normally seen by Dr. Poe from cardiology. Over the last few weeks he has had progressive weight gain, increasing lower extremity edema, and increasing abdominal girth. He was admitted to the hospital and at time of admission his BUN and creatinine were elevated at 67 and 2.64. He was diuresed with some improvement in his renal function to where today his BUN and creatinine were 64 and 2.31. We do not have any recent lab on him; his most recent creatinine that we do have is from October 2014, where it was 1.5. He denies a history of any prior renal problems. There is a history of benign prostatic hypertrophy and occasional use of nonsteroidal anti-inflammatories. He denies a history of any hematuria, proteinuria, recurrent urinary tract infections, renal lithiasis, hepatitis, or difficulty in urination. He states that he has not had any recent chest pain with this, nor any orthopnea or PND. His main concern was his increasing weight and lower extremity edema. He denies any severe headache, visual problems, wheezing, cough, or recurrent nausea, vomiting, constipation, or diarrhea. He denies any fever or chills. There is also a history of insulin-requiring diabetes mellitus which has been of about 10 years duration. His last eye exam was approximately four months ago. He denies a history of any retinopathy, peripheral neuropathy, or diabetic renal disease. He also denies a history of hypertension, although I see this clearly documented in his record. Of note, he also has a history of benign prostatic hypertrophy and an endovascular AAA repair some time ago. PAST MEDICAL HISTORY: Significant for coronary artery disease, systolic heart failure with an ejection fraction of approximately 40% to 45%, insulin-requiring diabetes mellitus, COPD with a history of right-sided heart failure, AAA repair, and a subdural hematoma requiring several bur holes to be placed. PAST SURGICAL HISTORY: Significant for the endovascular AAA repair, subdural hematoma repair, and two coronary artery bypass grafts. ALLERGIES: He is not allergic to any food or any medication. SOCIAL HISTORY: He is retired from the and from the [employer]. He has a history of tobacco use but has not smoked in over 25 years. He denies any ethanol intake and states until recently he was able to perform his activities of daily living without significant problems or restriction. MEDICATIONS: At time of my evaluation include nitroglycerin, potassium chloride, allopurinol, atorvastatin, insulin, metoprolol, Lasix, several eye medications, DuoNeb, and tamsulosin. FAMILY HISTORY: Noncontributory. REVIEW OF SYSTEMS: As detailed above. Otherwise is unremarkable. PHYSICAL EXAMINATION: Revealed a healthy-appearing 86-year-old white male who was alert and oriented x3, in no distress at time of my evaluation. His blood pressure is 103/40 with a pulse rate of 68. HEENT: Remarkable for pale sclerae. Neck: Supple, without adenopathy or thyromegaly. He did have moderate jugular venous distention of approximately 60 degrees' elevation. Lungs: Showed some increase in AP diameter bilaterally, but otherwise were clear. Heart was regular and rhythmical, with a soft systolic murmur. Abdomen was soft, with a small amount of fluid noted in both flank areas. There was no tenderness, rebound, or guarding noted. His liver was a bit enlarged and was pulsatile to mild palpation. He also had evidence of hepatojugular reflux. Extremities showed evidence of brawny induration in both distal lower extremities. There was some mild lower extremity edema noted bilaterally. There was no clubbing cyanosis noted. Skin turgor was good. There was no evidence of any rashes. LABORATORY EXAMINATION: This morning his sodium is 140, potassium 2.9, chloride 95, CO2 of 30, BUN and creatinine were 64 and 2.3, glucose is 148. Liver function studies were normal. His albumin is 3.8. Urinalysis on admission showed a specific gravity 1.005, pH was 5. Tests for glucose, ketones, blood, and protein were all negative, as was the microscopic examination. This morning his white count was 5.5, hemoglobin of 8.4, hematocrit 28.3. Red cell indices, platelet count, and differential were normal. IMPRESSION: 1. Mild acute kidney injury secondary to right-sided decompensated heart failure. 2. 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 3. Hypertension with hypertensive heart disease and hypertensive nephrosclerosis. 4. Anemia secondary to chronic kidney disease. RECOMMENDATION: I have discussed the case with Dr. Emanuel and I feel that spironolactone 25 mg daily is quite reasonable to start with. I would also like to get a serum protein electrophoresis, a repeat uric acid, a urine for protein, a microalbumin to creatinine ratio, iron, and TIBC. Most likely I will start him on 60 mg of Aranesp now. Once again, I would like to thank you for allowing me to participate in the care of this most pleasant and interesting patient. I will be following him closely with you.
--- NOTE | 2016-03-27 18:05 | NUR ---
Shift Report Pt on 2L via NC. Fluid restriction of 1500mL (1000ml during day, 500ml at night). Alatorre draining mariluz urine to gravity. Lasix given BID. A&Ox3. Pt independent to bathroom w/mild SOB. Pt resting throughout day. Pt has very little feeling in lower limbs and feet. No complaints of chest pain/discomfort. No pain throughout shift. Will continue to monitor.
[2016-03-27] MEDS: Insulin GLARgine 100 Unit/mL Syringe SUBQ SCH (20:16)
--- NOTE | 2016-03-27 21:29 | PCM.PNMED ---
Subjective Date of Service Mar 27, 2016 Subjective Patient reports that his lower extremity edema is improving. He states that the scrotal edema has completely resolved. He states that he is very fatigued. He denies any shortness of breath, chest pain , nausea, vomiting or diarrhea. Pt denies any other complaints. Exam Vital Signs Vital Sign - Last Date Time Temp Pulse Resp B/P Pulse Ox O2 Delivery O2 Flow Rate FiO2 03/27/16 21:05 36.8 78 18 113/74 94 Room Air 03/27/16 05:20 2.00 Intake and Output 03/26/16 03/26/16 03/27/16 Cumulative From/Thru 15:00 23:00 07:00 03/25/16 13:04 - 03/27/16 06:32 Intake Total 800 ml 400 ml 1800 ml Output Total 2200 ml 2500 ml 7585 ml Balance -1400 ml -2100 ml -5785 ml Intake Oral 800 ml 400 ml 1800 ml Output Urine Total 2200 ml 2500 ml 7585 ml # Voids 1 # Bowel Movements 1 Exam General: No acute distress, well-developed, well-nourished, appropriately interactive HEENT: Normocephalic, atraumatic. External ears without defect. Moist conjunctivae. Oropharynx with moist mucosa. Neck: Supple with full range of motion. Cardiovascular: Regular rate and rhythm with systolic murmurs, no rubs, or gallops appreciated Pulmonary: Clear to auscultation bilaterally with no crackles, wheezes, or rhonchi. Normal respiratory effort with no use of accessory muscles. Abdomen: Bowel tones present. Soft, nontender, nondistended. Extremities: pitting edema of the lower extremities bilaterally is improved from previous physical exam.. Chronic venous stasis changes bilaterally. Scrotum not edematous Psychiatric: Normal mood and affect. Alert and oriented to person, place, and time. IVs and Medications Medications Reviewed: Medications were reviewed in detail Lab and Diagnostics Result Diagram: 03/27/16 0610 03/27/16 1645 X-Rays, CTs and MRIs PROCEDURE: X-RAY CHEST ONE VIEW, PORTABLE ([id number]) INDICATIONS: shortness of breath TECHNIQUE: One view of the chest was acquired. COMPARISON: [facility], CHEST 2 VIEW, 01/25/2015, 13:40. [facility], CHEST 2 VIEW, 06/26/2015, 11:58. [facility], CR, CHEST 1 VIEW , 07/09/2015, 17:03. [facility], CR, XR CHEST 1VW (PORTABLE), 2014, 13:24. FINDINGS: Surgical changes and devices: Median sternotomy. Lungs and pleura: No pleural effusions or pneumothorax. Moderate reticulonodular opacities present bilaterally, as before, predominantly within the bilateral perihilar locations. There is superimposed mild increased opacity within the bilateral lung bases. Mediastinum: Mediastinal contours appear normal. Heart size is enlarged. Bones and chest wall: No suspicious bony lesions. Overlying soft tissues appear unremarkable. IMPRESSION: Mild basilar interstitial pulmonary opacity, superimposed on chronic appearing fibrosis, consistent with edema versus atypical pneumonia. Dictated by: Siobhan Lowery M.D. on 03/25/2016 at 14:00 Approved by: Siobhan Lowery M.D. on 03/25/2016 at 14:01 PROCEDURE: US ABDOMEN INDICATIONS: elevated bilirubin and eval splenolmegaly TECHNIQUE: Real-time scanning was performed of the abdominal and retroperitoneal organs, with image documentation. COMPARISON: None. FINDINGS: Liver length: 16.40 cm CHD: 5.10 mm CBD: 6.20 mm Spleen length: 15.2 cm Right kidney length: 10.78 cm Left kidney length: 10.77 cm Aorta(Proximal): 3.18 cm RCIA: n.a LCIA: n.a Liver: Liver is normal in size and diffusely increased and heterogeneous echotexture. There is hepatopedal flow of portal vein on both ultrasound. Gallbladder: Gallbladder is surgically removed Biliary ducts: Intrahepatic bile ducts are non-dilated. Extrahepatic bile duct caliber is normal. Normal is 6-7 mm or less in diameter, or 10 mm or less post-cholecystectomy. Pancreas: Pancreas is poorly visualized. Spleen: Spleen is enlarged with the estimated volume of 529 cubic centimeter. Kidneys: Kidneys are normal in size and echotexture. No hydronephrosis or nephrolithiasis. No solid masses. There is a one point centimeters simple cyst in the inferior pole of the left kidney. Aorta: Proximal abdominal aorta is mildly aneurysmal measuring 3.2 cm in diameter. The mid to distal aorta is not well-seen. Iliacs: Proximal common iliac arteries are obscured by overlying bowel gas. IVC: Intrahepatic inferior vena cava is patent. Miscellaneous: There is a small amount of abdominal fluid. IMPRESSION: 1. Liver demonstrates heterogeneously increased echotexture, suspicious for chronic liver disease such as hepatitis or cirrhosis. 2. Enlarged spleen. This finding may be secondary to portal hypertension. 3. cholecystectomy. 4. Simple cyst in the lower pole of the left kidney. 5. Mild proximal abdominal aortic aneurysm. Mid to distal aorta not well visualized. 6. A small amount of free fluid. Dictated by: Emilia Gonzalez M.D. on 03/25/2016 at 19:34 Approved by: Emilia Gonzalez M.D. on 03/25/2016 at 19:41 Cardiac Echo Impressions Interpretation Summary The left ventricle is normal in size. Left ventricular wall thickness is mild-moderately increased. The ejection fraction is estimated to be 45-50%. The right ventricle is normal size. The right ventricular systolic function is normal. There is moderate to severe tricuspid regurgitation. The right ventricular systolic pressure is estimated at 60 mmHg assuming a right atrial pressure of 15 mm Hg. The IVC is dilated (diameter is greater than 2.1 cm) and it collapses less than 50% with a sniff. This suggests a high right atrial pressure of 15 mm Hg. There is no pericardial effusion. No other echocardiographic abnormalities seen. Compared with the prior exam from 09/16/1915, LV systolic function appears mildly improved. The estimated PA pressure is slightly lower. No other significant changes. Reading Physician:01:41 PM Assessment & Plan 1.Exacerbation sCHF with more frequent PVCs -Dr. Baumann of cardiology does not feel that the patient has congestive heart failure -ECHO demonstrates an EF of 45-50%, with LV thickness increased -Nephrology was consulted and feels that patient has right sided decompensated heart failure 2.Acute anasarca secondary to tricuspid regurgitation, pulmonary hypertension, and renal insufficiency -Continue to diurese patient with Lasix IV 60 mg twice a day -Monitor I's and O's carefully -BNP tomorrow -Repeat chest x-ray in the morning 3.Hypokalemia, not present on admission, ongoing -40 IV KCL administered today -Continue to monitor with daily labs. - PO potassium added to regimen 4.Chronic kidney disease stage 3 or 4, ongoing -Monitor labs daily -Nephrology has been consulted we appreciate their input -Nephrology has added Spironolactone 25 mg and Aranesp 60mg daily. 5.Chronic anemia likely secondary to chronic kidney disease -Continue to monitor 6.Thrombocytopenia, present on admission, ongoing -Ultrasound demonstrating heterogeneously increased echotexture suspicious for chronic liver disease such as hepatitis or cirrhosis -Recommend patient has outpatient follow-up regarding this issue Chronic issues known prior to admission, present on admission 7.pulmonary hypertension, A. fib, hypertension, abdominal aneurysm, CABG x 2/SC 8.Glaucoma 9.Diabetes mellitus 10.Emphysema Diet fluid restrict 1.5L/ DM/cardiac diet/sliding scale insulin DVT prophylaxis scd ambulate / hold heparin - monitor thrombocytopenia Code full VTE Mechanical Devices: Intermittant Pneumatic CD Attending Statement The patient was seen and examined together with Dr. Jones on 03-27-16 and I agree with the history, exam and plan as outlined in the note above. Fauzia Jones DO Mar 27, 2016 21:29 Brenna Melgar MD Mar 28, 2016 08:24
--- NOTE | 2016-03-27 23:13 | NUR ---
Cardiac Pt stated I feel much better. My legs are improving. Pt denies pain or SOB. No overt complications noted. Report given and care transferred to the receiving RN.
[2016-03-28] VITALS (9 sets, daily range): BP systolic 102–116; BP diastolic 63–67; PULSE 68–94; RESP 18; O2SAT 94–97
[2016-03-28 06:50] LABS: Unsaturated Iron Binding 340.3 ug/dL
[2016-03-28] MEDS: Potassium Chloride 20 mEq SR Tablet PO SCH ×4 (08:15→20:23)
[2016-03-28] MEDS: MeTOProlol XL 25 mg ER24 Tablet PO SCH (08:15)
[2016-03-28] MEDS: Sodium Chloride LOK Flush 10 mL Syringe IVFLUSH SCH ×3 (08:15→20:32)
[2016-03-28] MEDS: Furosemide 10 mg/mL 10 mL Inj IVPUSH SCH (08:16)
[2016-03-28] MEDS: Dorzolamide 2% 10 mL Ophthalmic Solution BOTH_EYES SCH ×2 (08:17→20:23)
[2016-03-28] MEDS: Brimonidine 0.2% 5 mL Ophthalmic Solution BOTH_EYES SCH ×2 (08:17→20:23)
[2016-03-28] MEDS: Insulin LISPRO 300 Unit/3 mL Inj SUBQ SCH ×4 (08:17→20:32)
--- NOTE | 2016-03-28 09:00 | NUR ---
JOSE RAMON signed JANICE Brothers
--- NOTE | 2016-03-28 09:16 | NUR ---
Social Work: Initial Assessment Data: Pt is an 86 y/o male admitted for congestive heart failure, renal failure. Pt's PCP is Dr Duron, pt's insurance is Medicare with [employer]. EMR reviewed. Readmit score is 3, high. [employer] met with pt at bedside, role explained. Pt's states he lives along in [place] in a single story home with 3 stairs to enter where he uses no DME. Pt states he drives, has no hx of HH, stayed at [facility] after brain surgery for residential, has no LTC or VA benefits. Pt states that he is not a caregiver and that his brother will give him a ride at d/c. Pt states he has O2 at home through [employer]. No d/c planning needs anticipated at this time. [employer] will continue to follow if needs arise. Assessment: Pt who is independent at baseline. Plan: Pt will d/c home via POV with brother when medically stable with [employer] O2. No d/c planning needs anticipated at this time. [employer] will continue to follow if needs arise. JANICE Brothers Addendum: 03/28/16 at 0919 by NAVARRO TAVERAS Amended: Links added.
[2016-03-28 09:35] LABS: BASOPHILS % (AUTO) 0.7 % (0-3); EOSINOPHILS % (AUTO) 2.9 % (0-5); MONOCYTES % (AUTO) 12.8 % (4-12); Mean Corpuscular Hemoglobin 27.6 pg (27.0-35.0); NEUTROPHILS % (AUTO) 65.9 % (40-74); Platelet Count 105 bil/L (150-400)
--- NOTE | 2016-03-28 11:22 | PCM.PNMED ---
Subjective Date of Service Mar 28, 2016 Subjective Patient patient's renal function is improving. His blood pressures remain in the low 100s and the patient states that he feels considerably better. Last 24- hour intake and output 1650 400 out along with 2700 and urine output last 8 hours. Resting considerably more comfortably and denies any chest pain, or lower extremity edema. His laboratory morning shows a sodium 139, potassium 3.0, chloride 94, bicarbonate of 61 and 1.98 URIC acid of 13.4. Transferrin saturation 9%. Exam Vital Signs Vital Sign - Last Date Time Temp Pulse Resp B/P Pulse Ox O2 Delivery O2 Flow Rate FiO2 03/28/16 10:24 68 03/28/16 09:55 36.4 18 111/63 94 Nasal Cannula 1.50 Intake and Output 03/27/16 03/27/16 03/28/16 Cumulative From/Thru 15:00 23:00 07:00 03/25/16 13:04 - 03/28/16 06:38 Intake Total 1212 ml 400 ml 3412 ml Output Total 2900 ml 2700 ml 37475 ml Balance -1688 ml -2300 ml -9773 ml Intake Oral 1212 ml 400 ml 3412 ml Output Urine Total 2900 ml 2700 ml 40923 ml # Voids 1 # Bowel Movements 0 0 1 Exam HEENT examination is remarkable for pale sclera. Neck is supple without adenopathy thyromegaly or jugular venous distention. Lungs are clear to auscultation though somewhat diminished. Heart is regular and rhythmical with a soft systolic murmur. Abdomen soft without any tenderness rebound guarding masses or hepatosplenomegaly. No joint evidence of any clubbing, cyanosis, or edema. Lab and Diagnostics Result Diagram: 03/28/16 0932 03/28/16 0558 X-Rays, CTs and MRIs PROCEDURE: X-RAY CHEST ONE VIEW, PORTABLE ([id number]) INDICATIONS: shortness of breath TECHNIQUE: One view of the chest was acquired. COMPARISON: [facility], , CHEST 2 VIEW, 01/25/2015, 13:40. [facility], , CHEST 2 VIEW, 06/26/2015, 11:58. [facility], , CHEST 1 VIEW , 07/09/2015, 17:03. [facility], , XR CHEST 1VW (PORTABLE), 2014, 13:24. FINDINGS: Surgical changes and devices: Median sternotomy. Lungs and pleura: No pleural effusions or pneumothorax. Moderate reticulonodular opacities present bilaterally, as before, predominantly within the bilateral perihilar locations. There is superimposed mild increased opacity within the bilateral lung bases. Mediastinum: Mediastinal contours appear normal. Heart size is enlarged. Bones and chest wall: No suspicious bony lesions. Overlying soft tissues appear unremarkable. IMPRESSION: Mild basilar interstitial pulmonary opacity, superimposed on chronic appearing fibrosis, consistent with edema versus atypical pneumonia. Dictated by: Siobhan Lowery M.D. on 03/25/2016 at 14:00 Approved by: Siobhan Lowery M.D. on 03/25/2016 at 14:01 PROCEDURE: US ABDOMEN INDICATIONS: elevated bilirubin and eval splenolmegaly TECHNIQUE: Real-time scanning was performed of the abdominal and retroperitoneal organs, with image documentation. COMPARISON: None. FINDINGS: Liver length: 16.40 cm CHD: 5.10 mm CBD: 6.20 mm Spleen length: 15.2 cm Right kidney length: 10.78 cm Left kidney length: 10.77 cm Aorta(Proximal): 3.18 cm RCIA: n.a LCIA: n.a Liver: Liver is normal in size and diffusely increased and heterogeneous echotexture. There is hepatopedal flow of portal vein on both ultrasound. Gallbladder: Gallbladder is surgically removed Biliary ducts: Intrahepatic bile ducts are non-dilated. Extrahepatic bile duct caliber is normal. Normal is 6-7 mm or less in diameter, or 10 mm or less post-cholecystectomy. Pancreas: Pancreas is poorly visualized. Spleen: Spleen is enlarged with the estimated volume of 529 cubic centimeter. Kidneys: Kidneys are normal in size and echotexture. No hydronephrosis or nephrolithiasis. No solid masses. There is a one point centimeters simple cyst in the inferior pole of the left kidney. Aorta: Proximal abdominal aorta is mildly aneurysmal measuring 3.2 cm in diameter. The mid to distal aorta is not well-seen. Iliacs: Proximal common iliac arteries are obscured by overlying bowel gas. IVC: Intrahepatic inferior vena cava is patent. Miscellaneous: There is a small amount of abdominal fluid. IMPRESSION: 1. Liver demonstrates heterogeneously increased echotexture, suspicious for chronic liver disease such as hepatitis or cirrhosis. 2. Enlarged spleen. This finding may be secondary to portal hypertension. 3. cholecystectomy. 4. Simple cyst in the lower pole of the left kidney. 5. Mild proximal abdominal aortic aneurysm. Mid to distal aorta not well visualized. 6. A small amount of free fluid. Dictated by: Emilia Gonzalez M.D. on 03/25/2016 at 19:34 Approved by: Emilia Gonzalez M.D. on 03/25/2016 at 19:41 Cardiac Echo Impressions Interpretation Summary The left ventricle is normal in size. Left ventricular wall thickness is mild-moderately increased. The ejection fraction is estimated to be 45-50%. The right ventricle is normal size. The right ventricular systolic function is normal. There is moderate to severe tricuspid regurgitation. The right ventricular systolic pressure is estimated at 60 mmHg assuming a right atrial pressure of 15 mm Hg. The IVC is dilated (diameter is greater than 2.1 cm) and it collapses less than 50% with a sniff. This suggests a high right atrial pressure of 15 mm Hg. There is no pericardial effusion. No other echocardiographic abnormalities seen. Compared with the prior exam from 09/16/1915, LV systolic function appears mildly improved. The estimated PA pressure is slightly lower. No other significant changes. Reading Physician:01:41 PM Assessment & Plan Impression #1 resolving acute kidney injury #2 hyperkalemia #3 hypertension with hypertensive heart disease and hypertensive nephrosclerosis #4 hyperuricemia #5 right kidney disease stage 3/46 anemia secondary to chronic kidney disease Mentation #1 I will increase his allopurinol No. 2. Stop IV diuretics and switch him to torsemide 20 mg once a day #3 .IV Iron #4probably be stable for discharge next day or so. VTE Mechanical Devices: Intermittant Pneumatic CD Refugio Sprague DO Mar 28, 2016 11:22
[2016-03-28] MEDS ORDERED: KCl 40 mEq/100 mL (CENTRAL) 40 MEQ in IV Premix 1 EACH IV ONE (11:25)
[2016-03-28] MEDS ORDERED: Darbepoetin Alfa 60 mCg/0.3 mL Inj SUBQ ONE (11:30)
[2016-03-28] MEDS ORDERED: KCl 40 mEq/500 mL D5W (Peripheral Line) IV ONE ×2 (11:35)
--- NOTE | 2016-03-28 11:43 | NUR ---
Landry Hamilton per Drs. wolfe, pt tolerated well. Resting comfortably in chair. Addendum: 03/28/16 at 1643 by PATTI MCPHERSON Pt voiding without issue.
[2016-03-28] MEDS ORDERED: 0.9% Sodium Chloride 250 ML ONE (13:50)
--- NOTE | 2016-03-28 14:27 | PCM.PNMED ---
Subjective Date of Service Mar 28, 2016 Subjective Patient reports that he is feeling significantly better. Patient denies any worsening of his shortness of breath. He states that he is at his baseline dyspnea. Patient reports that he does use oxygen at home generally around 2 L. Patient reports that his lower extremity edema is significantly improved and is almost at baseline. Patient denies any chest pain, fever, chills, nausea, vomiting or diarrhea. Patient states he has been tolerating his diet well. Patient states that he is very tired, but states that this is his baseline, and that he spends most of his time sleeping. 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 Exam Vital Signs Vital Sign - Last Date Time Temp Pulse Resp B/P Pulse Ox O2 Delivery O2 Flow Rate FiO2 03/28/16 13:34 36.4 73 18 114/67 95 Room Air 03/28/16 09:55 1.50 Intake and Output 03/27/16 03/27/16 03/28/16 Cumulative From/Thru 15:00 23:00 07:00 03/25/16 13:04 - 03/28/16 06:38 Intake Total 1212 ml 400 ml 3412 ml Output Total 2900 ml 2700 ml 96260 ml Balance -1688 ml -2300 ml -9773 ml Intake Oral 1212 ml 400 ml 3412 ml Output Urine Total 2900 ml 2700 ml 30625 ml # Voids 1 # Bowel Movements 0 0 1 Exam General: Patient is lying supine in bed sleeping .No acute distress, well- developed, well-nourished, appropriately interactive HEENT: Nasal cannula in place .Normocephalic, atraumatic. External ears without defect. Moist conjunctivae. Oropharynx with moist mucosa. Neck: Supple with full range of motion. Cardiovascular: Regular rate and rhythm with systolic murmurs, no rubs, or gallops appreciated Pulmonary: Clear to auscultation bilaterally with no crackles, wheezes, or rhonchi. Normal respiratory effort with no use of accessory muscles. Abdomen: Bowel tones present. Soft, nontender, nondistended. Extremities: Trace pitting edema of bilateral lower extremities considerably improved from initial physical exam. Chronic venous stasis changes bilaterally. Psychiatric: Normal mood and affect. Alert and oriented to person, place, and time. IVs and Medications Medications Reviewed: Medications were reviewed in detail Lab and Diagnostics Result Diagram: 03/28/16 0932 03/28/16 0558 X-Rays, CTs and MRIs PROCEDURE: X-RAY CHEST ONE VIEW, PORTABLE ([id number]) INDICATIONS: shortness of breath TECHNIQUE: One view of the chest was acquired. COMPARISON: [facility], , CHEST 2 VIEW, 01/25/2015, 13:40. [facility], , CHEST 2 VIEW, 06/26/2015, 11:58. [facility], , CHEST 1 VIEW , 07/09/2015, 17:03. [facility], , XR CHEST 1VW (PORTABLE), 2014, 13:24. FINDINGS: Surgical changes and devices: Median sternotomy. Lungs and pleura: No pleural effusions or pneumothorax. Moderate reticulonodular opacities present bilaterally, as before, predominantly within the bilateral perihilar locations. There is superimposed mild increased opacity within the bilateral lung bases. Mediastinum: Mediastinal contours appear normal. Heart size is enlarged. Bones and chest wall: No suspicious bony lesions. Overlying soft tissues appear unremarkable. IMPRESSION: Mild basilar interstitial pulmonary opacity, superimposed on chronic appearing fibrosis, consistent with edema versus atypical pneumonia. Dictated by: Siobhan Lowery M.D. on 03/25/2016 at 14:00 Approved by: Siobhan Lowery M.D. on 03/25/2016 at 14:01 PROCEDURE: US ABDOMEN INDICATIONS: elevated bilirubin and eval splenolmegaly TECHNIQUE: Real-time scanning was performed of the abdominal and retroperitoneal organs, with image documentation. COMPARISON: None. FINDINGS: Liver length: 16.40 cm CHD: 5.10 mm CBD: 6.20 mm Spleen length: 15.2 cm Right kidney length: 10.78 cm Left kidney length: 10.77 cm Aorta(Proximal): 3.18 cm RCIA: n.a LCIA: n.a Liver: Liver is normal in size and diffusely increased and heterogeneous echotexture. There is hepatopedal flow of portal vein on both ultrasound. Gallbladder: Gallbladder is surgically removed Biliary ducts: Intrahepatic bile ducts are non-dilated. Extrahepatic bile duct caliber is normal. Normal is 6-7 mm or less in diameter, or 10 mm or less post-cholecystectomy. Pancreas: Pancreas is poorly visualized. Spleen: Spleen is enlarged with the estimated volume of 529 cubic centimeter. Kidneys: Kidneys are normal in size and echotexture. No hydronephrosis or nephrolithiasis. No solid masses. There is a one point centimeters simple cyst in the inferior pole of the left kidney. Aorta: Proximal abdominal aorta is mildly aneurysmal measuring 3.2 cm in diameter. The mid to distal aorta is not well-seen. Iliacs: Proximal common iliac arteries are obscured by overlying bowel gas. IVC: Intrahepatic inferior vena cava is patent. Miscellaneous: There is a small amount of abdominal fluid. IMPRESSION: 1. Liver demonstrates heterogeneously increased echotexture, suspicious for chronic liver disease such as hepatitis or cirrhosis. 2. Enlarged spleen. This finding may be secondary to portal hypertension. 3. cholecystectomy. 4. Simple cyst in the lower pole of the left kidney. 5. Mild proximal abdominal aortic aneurysm. Mid to distal aorta not well visualized. 6. A small amount of free fluid. Dictated by: Emilia Gonzalez M.D. on 03/25/2016 at 19:34 Approved by: Emilia Gonzalez M.D. on 03/25/2016 at 19:41 Cardiac Echo Impressions Interpretation Summary The left ventricle is normal in size. Left ventricular wall thickness is mild-moderately increased. The ejection fraction is estimated to be 45-50%. The right ventricle is normal size. The right ventricular systolic function is normal. There is moderate to severe tricuspid regurgitation. The right ventricular systolic pressure is estimated at 60 mmHg assuming a right atrial pressure of 15 mm Hg. The IVC is dilated (diameter is greater than 2.1 cm) and it collapses less than 50% with a sniff. This suggests a high right atrial pressure of 15 mm Hg. There is no pericardial effusion. No other echocardiographic abnormalities seen. Compared with the prior exam from 09/16/1915, LV systolic function appears mildly improved. The estimated PA pressure is slightly lower. No other significant changes. Reading Physician:01:41 PM Assessment & Plan 1.Exacerbation sCHF with more frequent PVCs -Dr. Baumann of cardiology does not feel that the patient has congestive heart failure -ECHO demonstrates an EF of 45-50%, with LV thickness increased -Nephrology was consulted and feels that patient has right sided decompensated heart failure 2.Acute anasarca secondary to tricuspid regurgitation, pulmonary hypertension, and renal insufficiency -Discontinue Lasix IV 60 mg twice a day -Per Nephrology, start Torsemide 20mg daily -Monitor I's and O's carefully -Daily labs 3.Hypokalemia, not present on admission, ongoing -40 IV KCL administered 03/27/16 -20mg PO KCl QID, and then to be discharged on 20mg q daily -Daily labs 4.Chronic kidney disease stage 3 or 4, ongoing -Monitor labs daily -Nephrology has been consulted we appreciate their input -Nephrology has added Spironolactone 25 mg and Aranesp 60mg daily. 5.Chronic anemia likely secondary to chronic kidney disease -Continue to monitor 6.Thrombocytopenia, present on admission, ongoing -Ultrasound demonstrating heterogeneously increased echotexture suspicious for chronic liver disease such as hepatitis or cirrhosis -Recommend patient has outpatient follow-up regarding this issue Chronic issues known prior to admission, present on admission 7.pulmonary hypertension, A. fib, hypertension, abdominal aneurysm, CABG x 2/MN 8.Glaucoma 9.Diabetes mellitus 10.Emphysema Diet fluid restrict 1.5L/ DM/cardiac diet/sliding scale insulin DVT prophylaxis scd ambulate / hold heparin - monitor thrombocytopenia VTE Mechanical Devices: Intermittant Pneumatic CD Attending Statement The patient was seen and examined together with Dr. Jones on 03-28-16 and I agree with the history, exam and plan as outlined in the note above. Fauzia Jones DO Mar 28, 2016 14:27 Brenna Melgar MD Mar 29, 2016 16:48
--- NOTE | 2016-03-28 17:24 | PCM.PNCARD ---
Subjective Date of service Mar 28, 2016 Chief Complaint SOB/Edema Subjective: CONSTITUTIONAL: Negative for fever, positive for weight loss. HEENT: Eyes: Negative for glaucoma or cataracts. Ears: Negative pain or loss of hearing. Nose: Negative for nasal congestion. Negative for rhinorrhea or postnasal drip. Mouth: Negative for false teeth. Throat: Negative for masses or hoarseness. Negative for snoring. CARDIOVASCULAR: Negative for chest pain or palpitations, near syncope, syncope, PND, or orthopnea. RESPIRATORY: Negative for shortness of breath at rest, hemoptysis, cough. Positive for exertional dyspnea GASTROINTESTINAL: Negative for nausea, vomiting, diarrhea or heartburn. GENITOURINARY: Negative for dysuria. Positive for Alatorre catheter MUSCULOSKELETAL: Negative for osteoarthritis. SKIN: Negative for rashes. NEUROLOGIC: Negative for headaches, blurry vision, CVA, mental status changes. PSYCHIATRIC: Negative for depression. Negative for daytime sleepiness or insomnia. ENDOCRINE: Positive for diabetes . HEMATOLOGIC: Negative for anemia or blood dyscrasias. Exam Vital Signs Vital Sign - Last Date Time Temp Pulse Resp B/P Pulse Ox O2 Delivery O2 Flow Rate FiO2 03/28/16 14:49 73 18 95 Room Air 03/28/16 13:34 36.4 114/67 03/28/16 09:55 1.50 Intake and Output 03/27/16 03/27/16 03/28/16 Cumulative From/Thru 15:00 23:00 07:00 03/25/16 13:04 - 03/28/16 06:38 Intake Total 1212 ml 400 ml 3412 ml Output Total 2900 ml 2700 ml 71154 ml Balance -1688 ml -2300 ml -9773 ml Intake Oral 1212 ml 400 ml 3412 ml Output Urine Total 2900 ml 2700 ml 39666 ml # Voids 1 # Bowel Movements 0 0 1 General: Pleasant Cooperative Skin: Warm & dry to touch Head: Normocephalic Eye: EOMS intact Neck: JVP elevated Chest: Clear auscultation w/o rales/wheeze Cardiac: Regular rhythm Abdomen: Abdomen unremarkable Extremities: Warm Edema (significantly decreased) Neurological: Alert & oriented Psychological: Affect & interaction appropriate Lab and Diagnostics Labs CBC Test 03/25/16 13:30 03/28/16 09:32 Reticulocyte Count,Calculated 2.3% (0.6-2.6) White Blood Count 5.6th/mm3 (3.8-10.1) Red Blood Count 3.15mil/mm3 (4.40-5.80) Hemoglobin 8.7g/dL (13.8-17.2) Hematocrit 29.3% (41.0-50.0) Mean Corpuscular Volume 93.0fL (81-100) Mean Corpuscular Hemoglobin 27.6pg (27.0-35.0) Mean Corpuscular Hemoglobin Concent 29.7% (32.0-37.0) Red Cell Distribution Width 16.9% (12.3-15.4) Platelet Count 105bil/L (150-400) Neutrophils (%) (Auto) 65.9% (40-74) Lymphocytes (%) (Auto) 17.5% (14-46) Monocytes (%) (Auto) 12.8% (4-12) Eosinophils (%) (Auto) 2.9% (0-5) Basophils (%) (Auto) 0.7% (0-3) CMP Test 03/25/16 13:30 03/25/16 19:55 03/26/16 06:30 03/27/16 06:10 Hemoglobin A1c 7.5% Thyroid Stimulating Hormone (TSH) 4.560uIU/mL Free Thyroxine 1.55ng/dL Hold Davis Top Tube Received Vitamin B12 Level 1809pg/mL Phosphorus Level 4.1mg/dL Magnesium Level 2.6mg/dL Troponin T 0.051ug/L Total Bilirubin 1.5mg/dL Aspartate Amino Transf (AST/SGOT) 20U/L Alanine Aminotransferase (ALT/SGPT) 13U/L Alkaline Phosphatase 101U/L Pro-B-Type Natriuretic Peptide 3769pg/mL Total Protein 5.7g/dL Test 03/28/16 05:58 Sodium Level 139mEq/L Potassium Level 3.0mEq/L Chloride Level 94mEq/L Carbon Dioxide Level 30mmol/L Blood Urea Nitrogen 61mg/dL Creatinine 1.98mg/dL Estimat Glomerular Filtration Rate 34mL/min Glucose Level 168mg/dL Uric Acid 13.4mg/dL Calcium Level 8.5mg/dL Iron Level 35ug/dL Total Iron Binding Capacity 375ug/dL Percent Iron Saturation 9%sat Unsaturated Iron Binding 340.3ug/dL Result Diagram: 2/18/17 0932 03/28/16 0558 Assessment & Plan Problems: (1) Anasarca Plan: Patient's anasarca has improved dramatically with aggressive diuretic therapy. Spironolactone was added to his medical regimen. His urine output has been quite impressive. The patient symptoms have improved. Denies any PND orthopnea. His scrotal edema has resolved. For now continue with his oral medical therapy and discontinue his Alatorre catheter and have him ambulate today and tomorrow to see if when the patient can be discharged home. Patient will need to follow-up with Dr. Poe when he is discharged in about 4-6 weeks. Also required a repeat basic metabolic panel in about 2 weeks after being discharged. Status: Resolved ICD Code: R60.1 (2) Pulmonary hypertension Status: Chronic ICD Code: I27.2 VTE Mechanical Devices: Intermittant Pneumatic CD Time spent 20 minutes Demetris Emanuel MD Mar 28, 2016 17:24
--- NOTE | 2016-03-28 18:20 | NUR ---
Shift Note Landry RUIZ's at 1130, Pt voiding without issues. Ambulated in room, tolerated well. Pt on 2L , sat mid 90s. Pt resting comfortably, bed in lowest locked position and call light in reach. Addendum: 03/28/16 at 1910 by ANDREI WALL RN This DANA agrees with above note.
[2016-03-28] MEDS: Insulin GLARgine 100 Unit/mL Syringe SUBQ SCH (20:31)
[2016-03-29] VITALS (7 sets, daily range): BP systolic 101–116; BP diastolic 54–68; PULSE 68–83; RESP 18; O2SAT 94–97
[2016-03-29 06:43] LABS: BASOPHILS % (AUTO) 0.5 % (0-3); EOSINOPHILS % (AUTO) 1.9 % (0-5); MONOCYTES % (AUTO) 11.2 % (4-12); Mean Corpuscular Hemoglobin 28.1 pg (27.0-35.0); Mean Corpuscular Volume 92.9 fL (81-100); NEUTROPHILS % (AUTO) 68.1 % (40-74); Platelet Count 104 bil/L (150-400)
[2016-03-29] MEDS: Potassium Chloride 20 mEq SR Tablet PO SCH ×2 (06:47→11:22)
[2016-03-29] MEDS ORDERED: Potassium Chloride 20 mEq SR Tablet PO SCH (08:00)
[2016-03-29] MEDS: Brimonidine 0.2% 5 mL Ophthalmic Solution BOTH_EYES SCH (08:21)
[2016-03-29] MEDS: Dorzolamide 2% 10 mL Ophthalmic Solution BOTH_EYES SCH (08:21)
[2016-03-29] MEDS: MeTOProlol XL 25 mg ER24 Tablet PO SCH (08:23)
[2016-03-29] MEDS: Insulin LISPRO 300 Unit/3 mL Inj SUBQ SCH ×2 (08:23→11:22)
[2016-03-29] MEDS: Sodium Chloride LOK Flush 10 mL Syringe IVFLUSH SCH (08:25)
--- NOTE | 2016-03-29 10:21 | PCM.DIMED ---
Juana Gilman DO 03/29/16 1000: Discharge Instructions Date of Service Mar 29, 2016 Dates of Hospitalization Mar 25, 2016 at 15:15 Discharge Diagnosis Discharge Diagnosis Acute exacerbation systolic congestive heart failure, present on admission. Resolved. Acute anasarca, secondary to acute systolic congestive heart failure exacerbation, tricuspid regurgitation, pulmonary hypertension, and renal insufficiency, present on admission. Resolved. Hypokalemia, not present on admission. Treated. Chronic kidney disease stage 3 or 4, present on admission. Stable. Chronic anemia, secondary to chronic kidney disease, present on admission. Stable. Thrombocytopenia, possibly secondary to chronic liver disease, present on admission. Stable. Pulmonary hypertension, chronic. Stable. Atrial fibrillation, chronic. Stable. Hypertension, chronic. Stable. Glaucoma, chronic. Stable. Diabetes mellitus type II, insulin using, chronic. Stable. Emphysema, chronic. Stable. . Medication Instructions Continued medications: Allopurinol 100 mg daily at bedtime. Atorvastatin 20 mg daily at bedtime. Brimonidine tartrate 5 mg both eyes twice a day. Dorzolamide 10 mL both eyes twice a day. Lisinopril sodium 20 mg daily. Lantus 12 units subcutaneous as needed. Latanoprost 2.5 mL both eyes 3 times a day. Metformin 500 mg twice a day. Metoprolol succinate 25 mg daily. Nitroglycerin patch 0.2 mg daily at bedtime. Terazosin 20 mg twice a day. Torsemide 20 mg daily. New medications: Potassium chloride 20 mEq daily with meal. . Diet Low fat, Low Sodium, Heart Healthy Activity No restrictions Call your provider Shortness of breath, Chest pain, Weakness (unilateral) Patient Instructions Please follow-up with your primary care provider, Dr. Duron, in 1 week regarding your recent hospitalization. Please follow-up with Dr. Poe, in 2 weeks regarding your recent hospitalization and chronic systolic congestive heart failure with blood work prior to your appointment ([facility]) to follow. Please follow-up with nephrology, Dr. Sprague, in approximately 3-4 weeks. . Follow-up Provider: Lam Duron MD Follow-up with PCP in: 1 week Provider: Jerry Poe MD Follow-up in: 2 weeks Brenna Melgar MD 03/30/16 0857: Discharge Instructions Attending's Statement The patient was seen and examined together with Dr. Gilman on 03-29-16 and I agree with the history, exam and plan as outlined in the note above. Juana Gilman DO Mar 29, 2016 10:00 Brenna Melgar MD Mar 30, 2016 08:57
[2016-03-29] MEDS ORDERED: POTA20TA16 PO ×3 (10:23→11:14)
--- NOTE | 2016-03-29 11:11 | PCM.PNMED ---
Subjective Date of Service Mar 29, 2016 Subjective Patient's continuing to do well. He states that his breathing is considerably better and he is resting quite comfortably. There is no chest pain, cough, wheezing, lower extremity edema, PND, vomiting, or diarrhea. His systolic blood pressures have ranged between 100 140 for the last 24 hours. His intake and output from yesterday are 1613 in and 4225 out with 800 mL of urine out already today. His hemoglobin is 9.1, sodium 137, potassium 3.9, chloride of 98 , bicarbonate 23, BUN and creatinine were 90 and 3.76 respectively this is improved. Exam Vital Signs Vital Sign - Last Date Time Temp Pulse Resp B/P Pulse Ox O2 Delivery O2 Flow Rate FiO2 03/29/16 10:19 80 03/29/16 09:40 36.3 18 109/64 94 Nasal Cannula 1.50 Intake and Output 03/28/16 03/28/16 03/29/16 Cumulative From/Thru 15:00 23:00 07:00 03/25/16 13:04 - 03/29/16 06:29 Intake Total 1213 ml 300 ml 4925 ml Output Total 1525 ml 800 ml 70392 ml Balance -312 ml -500 ml -28255 ml Intake Oral 836 ml 300 ml 4548 ml IV Total 377 ml 377 ml Output Urine Total 1525 ml 800 ml 68056 ml # Voids 1 # Bowel Movements 1 Exam Neck is supple without adenopathy thyromegaly or jugular venous distention. Lungs are clear to auscultation. Heart is regular medical with a soft systolic murmur. Abdomen soft without any tenderness rebound guarding masses or hepatosplenomegaly. Extremities do not show any evidence of any clubbing cyanosis or edema. Lab and Diagnostics Result Diagram: 03/29/1652703/29/16527 X-Rays, CTs and MRIs PROCEDURE: X-RAY CHEST ONE VIEW, PORTABLE ([id number]) INDICATIONS: shortness of breath TECHNIQUE: One view of the chest was acquired. COMPARISON: [facility], , CHEST 2 VIEW, 01/25/2015, 13:40. [facility], , CHEST 2 VIEW, 06/26/2015, 11:58. [facility], , CHEST 1 VIEW , 07/09/2015, 17:03. [facility], , XR CHEST 1VW (PORTABLE), 2014, 13:24. FINDINGS: Surgical changes and devices: Median sternotomy. Lungs and pleura: No pleural effusions or pneumothorax. Moderate reticulonodular opacities present bilaterally, as before, predominantly within the bilateral perihilar locations. There is superimposed mild increased opacity within the bilateral lung bases. Mediastinum: Mediastinal contours appear normal. Heart size is enlarged. Bones and chest wall: No suspicious bony lesions. Overlying soft tissues appear unremarkable. IMPRESSION: Mild basilar interstitial pulmonary opacity, superimposed on chronic appearing fibrosis, consistent with edema versus atypical pneumonia. Dictated by: Siobhan Lowery M.D. on 03/25/2016 at 14:00 Approved by: Siobhan Lowery M.D. on 03/25/2016 at 14:01 PROCEDURE: US ABDOMEN INDICATIONS: elevated bilirubin and eval splenolmegaly TECHNIQUE: Real-time scanning was performed of the abdominal and retroperitoneal organs, with image documentation. COMPARISON: None. FINDINGS: Liver length: 16.40 cm CHD: 5.10 mm CBD: 6.20 mm Spleen length: 15.2 cm Right kidney length: 10.78 cm Left kidney length: 10.77 cm Aorta(Proximal): 3.18 cm RCIA: n.a LCIA: n.a Liver: Liver is normal in size and diffusely increased and heterogeneous echotexture. There is hepatopedal flow of portal vein on both ultrasound. Gallbladder: Gallbladder is surgically removed Biliary ducts: Intrahepatic bile ducts are non-dilated. Extrahepatic bile duct caliber is normal. Normal is 6-7 mm or less in diameter, or 10 mm or less post-cholecystectomy. Pancreas: Pancreas is poorly visualized. Spleen: Spleen is enlarged with the estimated volume of 529 cubic centimeter. Kidneys: Kidneys are normal in size and echotexture. No hydronephrosis or nephrolithiasis. No solid masses. There is a one point centimeters simple cyst in the inferior pole of the left kidney. Aorta: Proximal abdominal aorta is mildly aneurysmal measuring 3.2 cm in diameter. The mid to distal aorta is not well-seen. Iliacs: Proximal common iliac arteries are obscured by overlying bowel gas. IVC: Intrahepatic inferior vena cava is patent. Miscellaneous: There is a small amount of abdominal fluid. IMPRESSION: 1. Liver demonstrates heterogeneously increased echotexture, suspicious for chronic liver disease such as hepatitis or cirrhosis. 2. Enlarged spleen. This finding may be secondary to portal hypertension. 3. cholecystectomy. 4. Simple cyst in the lower pole of the left kidney. 5. Mild proximal abdominal aortic aneurysm. Mid to distal aorta not well visualized. 6. A small amount of free fluid. Dictated by: Emilia Gonzalez M.D. on 03/25/2016 at 19:34 Approved by: Emilia Gonzalez M.D. on 03/25/2016 at 19:41 Cardiac Echo Impressions Interpretation Summary The left ventricle is normal in size. Left ventricular wall thickness is mild-moderately increased. The ejection fraction is estimated to be 45-50%. The right ventricle is normal size. The right ventricular systolic function is normal. There is moderate to severe tricuspid regurgitation. The right ventricular systolic pressure is estimated at 60 mmHg assuming a right atrial pressure of 15 mm Hg. The IVC is dilated (diameter is greater than 2.1 cm) and it collapses less than 50% with a sniff. This suggests a high right atrial pressure of 15 mm Hg. There is no pericardial effusion. No other echocardiographic abnormalities seen. Compared with the prior exam from 09/16/1915, LV systolic function appears mildly improved. The estimated PA pressure is slightly lower. No other significant changes. 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 I have given the patient my card and instructions to make an appointment. VTE Mechanical Devices: Venous Foot Pump Refugio Sprague DO Mar 29, 2016 11:11
--- NOTE | 2016-03-29 14:33 | NUR ---
DISCHARGE Pt discharged this afternoon at 1415, accompanied off unit in w/c with brother and DIRECTOR OF RECRUITING. VSS, A&O, denies any pain and in no apparent distress. IV dc'd intact, all belongings returned. All instructions for diet, activity, medications, prescriptions and follow up reviewed with pt and family, who report understanding.
--- NOTE | 2016-03-29 15:38 | NUR ---
Social Work: Discharge Data: Pt is on day 4 of hospitalization. EMR reviewed. D/C orders are in. Pt previously set up with [facility] home [facility]. No further d/c planning needs at this time. TAIL WORKER will continue to follow if needs arise. Assessment: Pt who is independent at baseline. Plan: Pt will d/c home via POV today. Pt previously set up with [facility] home [facility]. No further d/c planning needs at this time. TAIL WORKER will continue to follow if needs arise. JANICE Brothers
--- NOTE | 2016-03-29 18:24 | PCM.DC.MED ---
Discharge Summary Date of Service Mar 29, 2016 Dates of Hospitalization Date of Hospital Admission Mar 25, 2016 at 15:15 Date of Discharge: Mar 29, 2016 Providers: Admitting Physician: Rocael Spicer MD Primary Care Physician: Lam Duron MD Attending Physician: Rocael Spicer MD Diagnosis at Time of Discharge Diagnosis at Time of Discharge Acute exacerbation systolic congestive heart failure, present on admission. Resolved. Acute anasarca, secondary to acute systolic congestive heart failure exacerbation, tricuspid regurgitation, pulmonary hypertension, and renal insufficiency, present on admission. Resolved. Hypokalemia, not present on admission. Treated. Chronic kidney disease stage 3 or 4, present on admission. Stable. Chronic anemia, secondary to chronic kidney disease, present on admission. Stable. Thrombocytopenia, possibly secondary to chronic liver disease, present on admission. Stable. Pulmonary hypertension, chronic. Stable. Atrial fibrillation, chronic. Stable. Hypertension, chronic. Stable. Glaucoma, chronic. Stable. Diabetes mellitus type II, insulin using, chronic. Stable. Emphysema, chronic. Stable. . Consultations Cardiology, Dr. Baumann. Nephrology, Dr. Sprague. . Procedures XRay, CTs & MRIs X-RAY CHEST ONE VIEW, PORTABLE IMPRESSION: Mild basilar interstitial pulmonary opacity, superimposed on chronic appearing fibrosis, consistent with edema versus atypical pneumonia. Dictated by: Siobhan Lowery M.D. on 03/25/2016 at 14:00 Approved by: Siobhan Lowery M.D. on 03/25/2016 at 14:01 US ABDOMEN FINDINGS: Liver length: 16.40 cm CHD: 5.10 mm CBD: 6.20 mm Spleen length: 15.2 cm Right kidney length: 10.78 cm Left kidney length: 10.77 cm Aorta(Proximal): 3.18 cm RCIA: n.a LCIA: n.a Liver: Liver is normal in size and diffusely increased and heterogeneous echotexture. There is hepatopedal flow of portal vein on both ultrasound. Gallbladder: Gallbladder is surgically removed Biliary ducts: Intrahepatic bile ducts are non-dilated. Extrahepatic bile duct caliber is normal. Normal is 6-7 mm or less in diameter, or 10 mm or less post-cholecystectomy. Pancreas: Pancreas is poorly visualized. Spleen: Spleen is enlarged with the estimated volume of 529 cubic centimeter. Kidneys: Kidneys are normal in size and echotexture. No hydronephrosis or nephrolithiasis. No solid masses. There is a one point centimeters simple cyst in the inferior pole of the left kidney. Aorta: Proximal abdominal aorta is mildly aneurysmal measuring 3.2 cm in diameter. The mid to distal aorta is not well-seen. Iliacs: Proximal common iliac arteries are obscured by overlying bowel gas. IVC: Intrahepatic inferior vena cava is patent. Miscellaneous: There is a small amount of abdominal fluid. IMPRESSION: 1. Liver demonstrates heterogeneously increased echotexture, suspicious for chronic liver disease such as hepatitis or cirrhosis. 2. Enlarged spleen. This finding may be secondary to portal hypertension. 3. cholecystectomy. 4. Simple cyst in the lower pole of the left kidney. 5. Mild proximal abdominal aortic aneurysm. Mid to distal aorta not well visualized. 6. A small amount of free fluid. Dictated by: Emilia Gonzalez M.D. on 03/25/2016 at 19:34 Approved by: Emilia Gonzalez M.D. on 03/25/2016 at 19:41 . Cardiac Echo Impression Echocardiogram Interpretation Summary: The left ventricle is normal in size. Left ventricular wall thickness is mild-moderately increased. The ejection fraction is estimated to be 45-50%. The right ventricle is normal size. The right ventricular systolic function is normal. There is moderate to severe tricuspid regurgitation. The right ventricular systolic pressure is estimated at 60 mmHg assuming a right atrial pressure of 15 mm Hg. The IVC is dilated (diameter is greater than 2.1 cm) and it collapses less than 50% with a sniff. This suggests a high right atrial pressure of 15 mm Hg. There is no pericardial effusion. No other echocardiographic abnormalities seen. Compared with the prior exam from 09/16/1915, LV systolic function appears mildly improved. The estimated PA pressure is slightly lower. No other significant changes. Reading Physician:01:41 PM . Brief History History of present illness per Dr. Spicer on 03/26/2015: HISTORY was OBTAINED FROM PATIENT / [employer] NOT[employer] 86-year-old male, on asa for chronic afib, presented with bilateral leg swelling progressively, associated fluid overload of thighs penis testicles, 20 pound weight gain in 2 weeks, shortness of breath for months. No orthopnea. PCP/Alex started another diuretic 3 days ago-metolazone he has been compliant for 3 days and noticed increased UOP. he continued torsemide. Lav Crewman Dr. Jefferson sent patient to ER for admission for IV diuresis. No chest pressure no palpitation no URI no diarrhea no vomiting no pain. No cough no nasal congestion In the ER Lasix 60, nitroglycerin 1 inch, 97.7 kg, w/ 500cc UOP Review of Systems - none of the following - F/C/sick contact / TOMAS / lightheaded / dizziness / sob / cough / cp / acid reflux / n/v/diarrhea / / / change in voiding / yeast infections / rash ambulates chronic bruising . Hospital Course Jerry Jones is an 86-year-old male, on asa for chronic atrial fibrillation, who presented to [facility] Emergency Department with bilateral leg swelling progressively, associated fluid overload of thighs penis testicles, 20 pound weight gain in 2 weeks, shortness of breath for months. 1. Acute exacerbation systolic congestive heart failure, present on admission. Resolved. - Dr. Baumann of cardiology did not feel that the patient has congestive heart failure. - Echocardiogram demonstrated an EF of 45-50%, with LV thickness increased, as above. - Nephrology was consulted and felt that the patient had right sided decompensated heart failure. 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 Poe at time of discharge. - Continued lisinopril 20 mg daily, atorvastatin 20 mg daily at bedtime, torsemide 20 mg daily. 2. Acute anasarca, secondary to acute systolic congestive heart failure exacerbation, tricuspid regurgitation, pulmonary hypertension, and renal insufficiency, present on admission. Resolved. - Given Lasix IV 60 mg twice a day for several days during hospitalization. - Per Nephrology, started torsemide 20 mg daily and then discontinued at time of discharge. - Monitored I's and O's daily throughout hospitalization. 3. Hypokalemia, not present on admission. Treated. - Administered KCl 40 mg IV 03/27/16 - Given 40 mg QID x 1 day and then discharged on 20 mg daily. - Continued to monitor potassium level throughout hospitalization. 4. Chronic kidney disease stage 4, present on admission. Stable. - Monitored renal function throughout hospitalization. - Nephrology consulted and followed throughout hospitalization. - Nephrology added Spironolactone 25 mg and he was discharged on this medication. - Received Aranesp 60 mcg x 1. 5. Chronic anemia, secondary to chronic kidney disease, present on admission. Stable. - Continued to monitor hemoglobin and hematocrit throughout hospitalization. 6. Thrombocytopenia, possibly secondary to chronic liver disease, present on admission. Stable. - Ultrasound demonstrating heterogeneously increased echotexture suspicious for chronic liver disease such as hepatitis or cirrhosis, as above. - Recommend patient have outpatient follow-up regarding this issue after discharge. Chronic Problems: Diabetes mellitus type II, insulin using, chronic. Stable. - Last hemoglobin A1c 8.6% 01/2016. - Continued carbohydrate consistent/heart healthy diet. - Continued correctional scale insulin as needed. - Continued Lantus 5 units daily at bedtime and metformin 500 mg twice a day.. Emphysema, chronic. Stable. - Discharged on continuous oxygen at baseline 2 L. Pulmonary hypertension, chronic. Stable. Atrial fibrillation, chronic. Stable. - Rate controlled on metoprolol succinate 25 mg daily. Hypertension, chronic. Stable. - Continued lisinopril sodium 20 mg daily. Glaucoma, chronic. Stable. - Continued Brimonidine tartrate 5 mg both eyes twice a day and Dorzolamide 10 mL both eyes twice a day. . Exam Vital Signs (Last) Date Time Temp Pulse Resp B/P Pulse Ox O2 Delivery O2 Flow Rate FiO2 03/29/16 10:19 80 03/29/16 09:40 36.3 18 109/64 94 Nasal Cannula 1.50 Exam General: Patient is lying supine in bed sleeping .No acute distress, well- developed, well-nourished, appropriately interactive HEENT: Normocephalic, atraumatic. External ears without defect. Moist conjunctivae. Oropharynx with moist mucosa. Neck: Supple with full range of motion. Cardiovascular: Regular rate and rhythm with systolic murmurs, no rubs, or gallops appreciated Pulmonary: Clear to auscultation bilaterally with no crackles, wheezes, or rhonchi. Normal respiratory effort with no use of accessory muscles. Abdomen: Bowel tones present. Soft, nontender, nondistended. Extremities: Trace pitting edema of bilateral lower extremities considerably improved from initial physical exam. Chronic venous stasis changes bilaterally. Psychiatric: Normal mood and affect. Alert and oriented to person, place, and time. . Test 03/25/16 13:30 03/25/16 15:12 03/25/16 19:55 03/25/16 23:20 Reticulocyte Count,Calculated 2.3% (0.6-2.6) Activated Partial Thromboplast Time 25.9sec (22.8-33.0) Hemoglobin A1c 7.5% (4.8-5.6) Thyroid Stimulating Hormone (TSH) 4.560uIU/mL (0.450-4.500) Free Thyroxine 1.55ng/dL (0.82-1.77) Hold Davis Top Tube Received (Received) Urine Color Straw (YELLOW) Urine Appearance Clear (CLEAR,HAZY) Urine pH 6.0 (5.0-8.0) Urine Specific [place] 1.005 (1.003-1.035) Urine Protein Negativemg/dL (NEG,TRACE) Urine Glucose (UA) Negativemg/dL (NEGATIVE) Urine Ketones Negativemg/dL (NEGATIVE) Urine Occult Blood Negative (NEGATIVE) Urine Nitrite Negative (NEGATIVE) Urine Bilirubin Negative (NEGATIVE) Urine Urobilinogen Normalmg/dL (NORMAL) Urine Leukocyte Esterase Negative (NEGATIVE) Urine RBC 0-2/hpf (0-2) Urine WBC 0-5/hpf (0-5) Urine Epithelial Cells Occasional/hpf (NONE-MOD) Urine Crystals None seen (NONE SEEN) Urine Bacteria None/hpf (NONE-FEW) Urine Hyaline Casts Occasional/lpf (NONE) Urine Granular Casts None seen (NONE SEEN) Urine Waxy Casts None seen (NONE SEEN) Urine Red Blood Cell Casts None seen (NONE SEEN) Urine White Blood Cell Casts None seen (NONE SEEN) Urine Mucus None seen (None Seen) Urine Trichomonas None seen (NONE SEEN) Urine Yeast None (NONE SEEN) Urinalysis Comment None Urine Culture Reflexed Not indicated Prothrombin Time 12.0sec (8.1-12.5) Prothromb Time International Ratio 1.12ratio Vitamin B12 Level 1809pg/mL (211-946) Hold Urine Received (Received) Test 03/26/16 06:30 03/27/16 06:10 03/28/16 05:58 03/28/16 13:40 Phosphorus Level 4.1mg/dL (2.5-4.9) Magnesium Level 2.6mg/dL (1.6-2.6) Troponin T 0.051ug/L (0.0-0.011) Pro-B-Type Natriuretic Peptide 3769pg/mL (0-486) Uric Acid 13.4mg/dL (2.6-7.2) Iron Level 35ug/dL (35-150) Total Iron Binding Capacity 375ug/dL (250-450) Percent Iron Saturation 9%sat (15-50) Unsaturated Iron Binding 340.3ug/dL Urine Random Creatinine 46mg/dL (22-328) Test 03/28/16 17:26 03/29/16 05:28 White Blood Count 6.2th/mm3 (3.8-10.1) Red Blood Count 3.24mil/mm3 (4.40-5.80) Hemoglobin 9.1g/dL (13.8-17.2) Hematocrit 30.1% (41.0-50.0) Mean Corpuscular Volume 92.9fL (81-100) Mean Corpuscular Hemoglobin 28.1pg (27.0-35.0) Mean Corpuscular Hemoglobin Concent 30.2% (32.0-37.0) Red Cell Distribution Width 17.0% (12.3-15.4) Platelet Count 104bil/L (150-400) Neutrophils (%) (Auto) 68.1% (40-74) Lymphocytes (%) (Auto) 18.0% (14-46) Monocytes (%) (Auto) 11.2% (4-12) Eosinophils (%) (Auto) 1.9% (0-5) Basophils (%) (Auto) 0.5% (0-3) Sodium Level 137mEq/L (134-144) Potassium Level 3.9mEq/L (3.5-5.2) Chloride Level 95mEq/L (97-108) Carbon Dioxide Level 28mmol/L (18-29) Blood Urea Nitrogen 60mg/dL (8-27) Creatinine 1.82mg/dL (0.76-1.27) Estimat Glomerular Filtration Rate 38mL/min (>59) Glucose Level 200mg/dL (60-99) Calcium Level 8.7mg/dL (8.5-10.1) Total Bilirubin 1.8mg/dL (0.0-1.2) Aspartate Amino Transf (AST/SGOT) 24U/L (0-50) Alanine Aminotransferase (ALT/SGPT) 13U/L (0-44) Alkaline Phosphatase 109U/L (25-160) Total Protein 6.2g/dL (6.4-8.4) Albumin 4.0g/dL (3.4-5.0) Microbiology Results Stool PCR negative. Urine eosinophils negative. . Discharge Medications Discharge Medications Allopurinol (Allopurinol) 100 Mg Tablet 100 MG PO HS (Reported) Atorvastatin Calcium (Atorvastatin Calcium) 20 Mg Tablet 20 MG PO HS (Reported) Brimonidine Tartrate (Brimonidine 0.2% Oph Soln) 5 Ml Drops 5 MG BOTH_EYES BID ( Reported) Dorzolamide (Dorzolamide) 10 Ml Drops 10 ML BOTH_EYES BID (Reported) Latanoprost (Latanoprost) 2.5 Ml Drops 2.5 ML BOTH_EYES TID (Reported) Metformin ER (Metformin ER) 500 Mg Tablet 500 MG PO BID (Reported) Metoprolol Succinate ER (Toprol XL) 25 Mg Tablet 25 MG PO DAILY (Reported) Nitroglycerin 0.2 mg/hr Patch (Nitroglycerin 0.2 mg/hr Patch) 1 Each Patch 0.2 MG HS (Reported) Potassium Chloride (Potassium Chloride) 20 Meq Tab.er.prt 20 MEQ PO DAILY Prescribed by: JOSE LIU DO Terazosin (Terazosin) 10 Mg Capsule 20 MG PO BID (Reported) Torsemide (Torsemide) 20 Mg Tablet 20 MG PO DAILY (Reported) As needed Insulin Glargine (Lantus U100 Solostar Insulin Pen) 100 Unit/1 Ml Insuln.pen 12 UNIT SUBQ PRN AD (Reported) Miscellaneous Medications Fosinopril Sodium (Fosinopril Sodium) 20 Mg Tablet 20 MG (Reported) Additional med instructions Continued medications: Allopurinol 100 mg daily at bedtime. Atorvastatin 20 mg daily at bedtime. Brimonidine tartrate 5 mg both eyes twice a day. Dorzolamide 10 mL both eyes twice a day. Lisinopril sodium 20 mg daily. Lantus 12 units subcutaneous as needed. Latanoprost 2.5 mL both eyes 3 times a day. Metformin 500 mg twice a day. Metoprolol succinate 25 mg daily. Nitroglycerin patch 0.2 mg daily at bedtime. Terazosin 20 mg twice a day. Torsemide 20 mg daily. New medications: Potassium chloride 20 mEq daily with meal. . Followup Plan Disposition: Home. . Discharge Diet: Low fat, Low Sodium, Heart Healthy Discharge Activity: No restrictions Patient Instructions Please follow-up with your primary care provider, Dr. Duron, in 1 week regarding your recent hospitalization. Please follow-up with Dr. Poe, in 2 weeks regarding your recent hospitalization and chronic systolic congestive heart failure with blood work prior to your appointment (BMP) to follow. Please follow-up with nephrology, Dr. Sprague, in approximately 3-4 weeks. . Follow-up Provider: Lam Duron MD Follow-up with PCP in: 1 week Provider: Jerry Poe MD Follow-up in: 2 weeks Attending Statement The patient was seen and examined together with Dr. Liu on 03-31-16 and I agree with the history, exam and plan as outlined in the note above. Jose Liu DO Mar 29, 2016 18:24 Brenna Melgar MD Apr 01, 2016 18:54 Discharge Diet: Low fat, Low Sodium, Heart Healthy Discharge Activity: No restrictions Patient Instructions Please follow-up with your primary care provider, Dr. Duron, in 1 week regarding your recent hospitalization. Please follow-up with Dr. Poe, in 2 weeks regarding your recent hospitalization and chronic systolic congestive heart failure with blood work prior to your appointment (BMP) to follow. Please follow-up with nephrology, Dr. Sprague, in approximately 3-4 weeks. . Follow-up Provider: Lam Duron MD Follow-up with PCP in: 1 week Provider: Jerry Poe MD Follow-up in: 2 weeks Jose Liu DO Mar 29, 2016 18:24
[2016-04-13] MEDS ORDERED: LEVA1.2523 IH (13:20)
[2016-04-13] MEDS ORDERED: FUR20 PO (13:20)
[2016-04-13] MEDS ORDERED: LIDO700A6 TP (13:20)
[2016-04-13] MEDS ORDERED: ARFO15VI2 IH (13:20)
[2016-04-13] MEDS ORDERED: ASPI-973 PO (13:20)
[2016-04-13] MEDS ORDERED: FLUT12AE10 IH (13:20)
[2016-04-13] MEDS ORDERED: POTA10TA38 PO (13:20)
[2016-04-13] MEDS ORDERED: IPRA0.2S51 IH (13:29)
[2016-04-13] MEDS ORDERED: COLC0.6C3 PO (13:29)
[2016-04-13] MEDS ORDERED: MULT1CAP33 PO (13:42)
[2016-04-13] MEDS ORDERED: ASCO500C6 PO (13:42)
[2016-04-13] MEDS ORDERED: CYAN50TA2 PO (13:42)
== END 2016-03-29 14:15 | disposition home or self-care (01) | DRG 291 ==
LOC: SED 12:56 → MPC 15:15
PROVIDERS: ADMIT Urology; ATTEND Urology
DX: I13.0 Hypertensive heart and chronic kidney disease with heart failure and stage 1 through stage 4 chronic kidney disease, or unspecified chronic kidney disease (principal); I50.23 Acute on chronic systolic (congestive) heart failure; N17.9 Acute kidney failure, unspecified; N18.3 Chronic kidney disease, stage 3 (moderate); D63.1 Anemia in chronic kidney disease; I48.2 Chronic atrial fibrillation; E11.9 Type 2 diabetes mellitus without complications; Z79.4 Long term (current) use of insulin; I27.2 Other secondary pulmonary hypertension; I25.10 Atherosclerotic heart disease of native coronary artery without angina pectoris; Z95.1 Presence of aortocoronary bypass graft; Z87.891 Personal history of nicotine dependence; D69.6 Thrombocytopenia, unspecified; J43.9 Emphysema, unspecified; E87.6 Hypokalemia; H40.9 Unspecified glaucoma

== ENCOUNTER 2016-04-13 14:22 | Inpatient (IN) | payer MEDICARE, OTHER ==
[~2016-04-13] VITALS: Ht 182.9 cm; Wt 87.0 kg
[~2016-04-13 14:22] MED LIST: ARFO15VI2 IH; ASCO500C6 PO; ASPI-973 PO; ATOR20TA65 PO; BRIM5DRO9 LEFT_EYE; COLC0.6C3 PO; CYAN50TA2 PO; DORZ10DR18 BOTH_EYES; FLUT12AE10 IH; FOSI20TA3 PO; FUR20 PO; INSU100I13 SUBQ; IPRA0.2S51 IH; LATA2.5D6 BOTH_EYES; LEVA1.2523 IH; LIDO700A6 TP; METF500T7 PO; METO25TA3 PO; MULT1CAP33 PO; NITR1PAT59 TRANSDERM; POTA10TA38 PO; POTA20TA16 PO; TERA10CA5 PO; TORS20TA3 PO; ZYL100 PO
[2016-04-13] MEDS ORDERED: Senna-Docusate 8.6-50 mg Tablet PO PRN (14:45)
[2016-04-13] MEDS ORDERED: Polyethylene Glycol (PEG) 17 Gm Powder PO PRN (14:45)
[2016-04-13] MEDS ORDERED: Alum-Mag Hydrox-Simeth 30 mL Suspension PO PRN (14:45)
[2016-04-13] MEDS ORDERED: Ondansetron 2 mg/mL 2 mL Inj IVPUSH PRN (14:45)
--- NOTE | 2016-04-13 14:56 | PCM.HPMED ---
Subjective Date of Service Apr 13, 2016 Primary Provider: Admitting Physician: Federico Joiner MD Primary Care Physician: Lam Duron MD Attending Physician: Federico Joiner MD Admit Status: [place] [facility] [place] to [place] Team, [facility] Telemetry Chief Complaint: Increasing leg swelling with dyspnea on exertion History of Present Illness: Jerry Jones is a 86 yo with Chronic systolic heart failure, Chronic Atrial fibrillation, Pulmonary hypertension and Coronary artery disease who presents for a direct admit due to increasing dyspnea on exertion due to acute congestive heart failure exacerbation Patient was actually in the observation unit trying to get some IV diuretics ordered by Cardiology CHAN Arriaza. Apparently the patient gained significant amount of weight shortly after he was discharged on 03/29 as he was told drink lots of fluids. Ivone instructed the patient to limit his fluid intake and a increased dose of Torsemide was prescribed. He was also send to the observation unit to received IV diuretics. His renal function was noted to be increasing with Cr increasing from 1.8 to 2.85. Patient reported some loose stools this morning but no melena or hematochezia. He denies any coughing, no chest pain. He notes increased leg edema later in the day. He reports compliance with all his medications. He also follows a 2 gram sodium diet daily. Review of Systems: Pertinent positives as noted in HPI. All other systems were reviewed and are negative Allergies Coded Allergies: No Known Allergies (Unverified Allergy, Unknown, 03/30/14) Home Medications From Jerry Renner [id number] 04/06/2016 08:30 AM 02/16 allopurinol 100 mg tablet take 1 tablet by oral route once daily to prevent gout attack Aspirin Low Dose 81 mg tablet,delayed release take 1 tablet by oral route every day atorvastatin 20 mg tablet take 1 tablet by oral route every day brimonidine 0.2 % eye drops instill 1 drop by ophthalmic route every 8 hours into affected eye(s) Brovana 15 mcg/2 mL solution for nebulization inhale 2 milliliter by inhalation route daily for breathing. Calcium And Magnesium 1 tablet by mouth daily Centrum 1 tablet by mouth daily dorzolamide 2 % eye drops instill as directed by physician for glaucoma fosinopril 20 mg tablet take 1/2 Tablet by oral route every day in the PM for high blood pressure. Lantus 100 unit/mL subcutaneous solution inject by subcutaneous route as per insulin protocol latanoprost 0.005 % eye drops instill as needed as directed by physician for glaucoma Lidoderm 5 % (700 mg/patch) adhesive patch apply as needed for back metformin 500 mg tablet take 1 tablet by oral route 2 times every day with morning and evening meals metoprolol succinate ER 25 mg tablet,extended release 24 hr take 1 Tablet by oral route every day for heart Nitro-Dur 0.4 mg/hr transdermal 24 hour patch apply 1 patch by transdermal route placed at bedtime to wear for 12 hours potassium chloride ER 20 mEq tablet,extended release take 1 tablet by oral route every day with food terazosin 10 mg capsule take 1 capsule by oral route every day at bedtime torsemide 20 mg tablet Take 2 tablets in the morning and 2 tablets in the PM. PMH Pulmonary hypertension Chronic A. fib Hypertension Hyperlipidemia Diabetes Type 2 Chronic Kidney disease COPD Glaucoma Diabetes mellitus Emphysema Subdural hematoma-divya holes by [facility], off anticoagulation AAA repair at [facility] Hepatic cirrhosis with anasarca BPH Coronary artery disease s/p 5 vessel CABG 1982 with redo bypass 1992 Ischemic Cardiomyopathy EF 40-45% Mild to Moderate MR . Surgical History Cholecystectomy CABG with redo Family History Father had NE age 54 Mother had Stroke Social History Hx Alcohol Use: No Hx Substance Use: No Hx Tobacco Use: Yes Smoking Status: Former Smoker Living Arrangement: with Family Exam Vital Signs Vital Signs (First) Date Time Temp Pulse Resp B/P Pulse Ox O2 Delivery O2 Flow Rate FiO2 04/13/16 15:21 36.4 72 20 118/58 95 Room Air Exam General: Alert, Oriented X3, Cooperative, No acute Distress Eyes: PERRLA, Scleral Anicteric Mouth: Mouth Normal, Mucous Membranes Moist/[place] Neck: Supple, no Thyromegaly, trachea central. Chest & Lungs: decreased breathe sounds at bases Cardiovascular: Normal S1, Normal S2, No Rubs/Gallops, irregularly irregular, ( elevated JVD, 3+ peripheral edema) Pulses: Radial (present and equal), Dorsalis Pedi (present and equal) Abdomen: Soft, Non-tender, Non-distended, Normoactive bowel tones. Musculoskeletal: Unremarkable. Normal range of motion, no swollen or erythematous joints Extremities: 3+ pitting edema, no cyanosis, no clubbing. Skin: No rashes. Warm and dry, no erythematous areas. Venous stasis changes. swelling around the penile foreskin Neurological: Grossly neurologically intact, has generalized weakness, Normal Speech, Sensation Intact Lymphatic: Lymph nodes Cervical and Axillary not palpable. Lab and Diagnostics Labs Laboratory Tests Test 04/13/16 15:00 White Blood Count 7.8th/mm3 (3.8-10.1) Red Blood Count 3.40mil/mm3 (4.40-5.80) Hemoglobin 9.2g/dL (13.8-17.2) Hematocrit 30.3% (41.0-50.0) Mean Corpuscular Volume 89.1fL (81-100) Mean Corpuscular Hemoglobin 27.1pg (27.0-35.0) Mean Corpuscular Hemoglobin Concent 30.4% (32.0-37.0) Red Cell Distribution Width 18.2% (12.3-15.4) Platelet Count 134bil/L (150-400) Neutrophils (%) (Auto) 83.9% (40-74) Lymphocytes (%) (Auto) 9.3% (14-46) Monocytes (%) (Auto) 5.8% (4-12) Eosinophils (%) (Auto) 0.3% (0-5) Basophils (%) (Auto) 0.4% (0-3) Sodium Level 131mEq/L (134-144) Potassium Level 5.1mEq/L (3.5-5.2) Chloride Level 93mEq/L (97-108) Carbon Dioxide Level 21mmol/L (18-29) Blood Urea Nitrogen 110mg/dL (8-27) Creatinine 3.91mg/dL (0.76-1.27) Estimat Glomerular Filtration Rate 16mL/min (>59) Glucose Level 104mg/dL (60-99) Calcium Level 9.2mg/dL (8.5-10.1) Total Bilirubin 1.3mg/dL (0.0-1.2) Aspartate Amino Transf (AST/SGOT) 23U/L (0-50) Alanine Aminotransferase (ALT/SGPT) 15U/L (0-44) Alkaline Phosphatase 110U/L (25-160) Total Protein 6.5g/dL (6.4-8.4) Albumin 4.1g/dL (3.4-5.0) Hold Davis Top Tube Received (Received) X-Rays, CTs and MRIs X-RAY CHEST ONE VIEW, PORTABLE 04/13/16 IMPRESSION: 1. Persistent right upper lobe airspace opacity which although may be related to underlying pneumonia or aspiration, given the persistence underlying neoplasm cannot be excluded and continued followup is recommended. Dictated by: Suhail Cavanaugh RRA Interpreted: Siobhan Lowery MD on 04/13/2016 at 16: 49 Transcribed by: JOHN on 04/13/2016 at 16:50 Approved by: Siobhan Lowery M.D. on 04/13/2016 at 16:56 Assessment & Plan eJrry Jones is a 86 yo with Chronic systolic heart failure, Chronic Atrial fibrillation, Pulmonary hypertension and Coronary artery disease who presents for a direct admit due to increasing dyspnea on exertion due to acute congestive heart failure exacerbation 1. Acute on Chronic systolic Heart failure. Present on admission Trigger unclear but may be due to inadequate diuretic dosing due to worsening renal function. Consider underlying ischemic heart disease. Possible the urine infection may be causing cardiac stress. Differential diagnosis includes increasing Anasarca due to portal hypertension and cirrhosis, Hypothyroid disease - monitor on telemetry - checking TSH - diuretic therapy with Lasix 80 mg IV bid, titrate to weight and urine output - Cardiology following 2. 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 Present on admission Likely pre renal due to decreased renal perfusion due to poor cardiac output. Chronic disease related to Hypertensive Nephrosclerosis and Diabetic Nephropathy. - avoid nephrotoxic insults - monitor urine output - Nephrology consulted 3. Urinary tract infection. Present on admission Consider underlying prostate issue or kidney stones - Blood cultures x 2 - Ceftriaxone IV for empiric antibiotics 4. Anasarca secondary to tricuspid regurgitation, pulmonary hypertension, and renal insufficiency. Present on admission - Albumin normal doubting if giving Albumin infusion will be of any benefit - recommend continuing diuretics preferably combination of Lasix and Aldactone 5. Chronic anemia likely secondary to chronic kidney disease - No clinical evidence of GI bleeding -Continue to monitor 6. Thrombocytopenia, present on admission -Ultrasound demonstrating heterogeneously increased echo texture suspicious for chronic liver disease such as hepatitis or cirrhosis -Recommend patient has outpatient follow-up regarding this issue 7. COPD with Chronic respiratory failure No evidence of acute exacerbation without any coughing or sputum changes - continue oxygen supplementation (2 L) - no indications for steroids or antibiotics 8 Chronic Atrial fibrillation rate controlled - monitor on telemetry - continue Metoprolol for rate control 9 Diabetes mellitus Type 2 - low correction Lispro algorithm - holding Metformin - continuing Lantus (will determine outpatient dose) - Acetaminophen as needed for mild pain/fever/headache - Bowel regimen as needed - Antiemetic as needed Patient admitted under inpatient status with expected length of stay > 2 midnights for severity of present symptoms, complexities of treatment plan and risk for adverse event . Resuscitation Status: CPR: Attempt Resuscitation Federico Joiner MD Apr 13, 2016 14:56
[2016-04-13 15:09] LABS: BASOPHILS % (AUTO) 0.4 % (0-3); EOSINOPHILS % (AUTO) 0.3 % (0-5); MONOCYTES % (AUTO) 5.8 % (4-12); Mean Corpuscular Hemoglobin 27.1 pg (27.0-35.0); Mean Corpuscular Volume 89.1 fL (81-100); NEUTROPHILS % (AUTO) 83.9 % (40-74); Platelet Count 134 bil/L (150-400)
[2016-04-13 15:21] VITALS: BP 118/58; PULSE 72; RESP 20; O2SAT 95
[2016-04-13] MEDS: Furosemide 10 mg/mL 10 mL Inj IVPUSH SCH ×2 (16:08→19:58)
[2016-04-13 16:13] VITALS: PULSE 71
[2016-04-13 16:30] VITALS: PULSE 75
[2016-04-13] MEDS: Sodium Chloride LOK Flush 10 mL Syringe IVFLUSH SCH ×2 (16:44→23:30)
--- NOTE | 2016-04-13 16:51 | DRSVH ---
PROCEDURE: X-RAY CHEST ONE VIEW, PORTABLE ([id number]) INDICATIONS: SHORTNESS OF BREATH TECHNIQUE: One view of the chest was acquired. COMPARISON: [facility], CR, XR CHEST 1VW (PORTABLE), 03/25/2016, 13:38. [facility], CR, XR CHEST 1VW (PORTABLE), 10/24/2014, 13:24. [facility], CT, CHEST/ABDOMEN WITH CONTR AST, 01/30/2015, 9:56. [facility], CR, XR CHEST 1VW (PORTABLE), 03/27/2016, 4:35. FINDINGS: Surgical changes and devices: Post median sternotomy. Lungs and pleura: Persistent airspace opacity within the right upper lobe not significantly changed o therwise lungs are hyperinflated and clear. No pneumothorax. Mediastinum: Mediastinal contours appear normal. Heart size is normal. Bones and chest wall: No suspicious bony lesions. Overlying soft tissues appear unremarkable. IMPRESSION: 1. Persistent right upper lobe airspace opacity which although may be related to underlying pneumonia or aspiration, given the persistence underlying neoplasm cannot be excluded and continued followup i s recommended. Dictated by: Suhail CHAVARRIA Interpreted: Siobhan Lowery MD on 04/13/2016 at 16:49 Transcribed by: JOHN on 04/13/2016 at 16:50 Approved by: Siobhan Lowery M.D. on 04/13/2016 at 16:56
[2016-04-13] MEDS ORDERED: Glucose 40% Oral Gel 15 Gm Tube PO PRN (17:15)
[2016-04-13] MEDS: Insulin LISPRO 300 Unit/3 mL Inj SUBQ SCH ×2 (17:23→20:14)
[2016-04-13 18:12] LABS: APPEARANCE,URINE CLOUDY (CLEAR,HAZY); COLOR,URINE YELLOW (YELLOW); OCCULT BLOOD,URINE MODERATE (NEGATIVE); UROBILINOGEN,URINE NORMAL (NORMAL)
--- NOTE | 2016-04-13 18:43 | NUR ---
Arrived, Bladder Scan Arrived - He [place] about 1510 [place] [facility] [place]. Report received from Su CORTEZ in [facility]. He was settled into the room and placed on 2L of O2 for comfort. His brother came and took his wallet and keys for safe keeping. Admit completed. Bladder Scan - Per MD orders a post void bladder scan was performed and it showed about 260 mls. Per MD orders a Alatorre catheter is to be placed if there is 300mls or greater. Care continues.
[2016-04-13 20:00] VITALS: PULSE 76
[2016-04-13 20:02] VITALS: BP 98/59; PULSE 73; RESP 20; O2SAT 96
[2016-04-13 23:28] VITALS: BP 105/60; PULSE 81; RESP 19; O2SAT 93
--- NOTE | 2016-04-13 23:28 | CONS ---
[address] [address] CONSULTATION REPORT PATIENT: XIOMARA CONNORS : 1930 MR#: [id number] ADMIT: 04/13/2016 JOB ID: [id number] DATE OF SERVICE: 04/13/2016 REQUESTING PHYSICIAN: Federico Joiner MD. REASON FOR CONSULTATION: Management of acute kidney injury. CHIEF COMPLAINT: Worsening lower extremity swelling. HISTORY OF PRESENT ILLNESS: This is a very pleasant 86-year-old male with significant past medical history of COPD, coronary artery disease, status post CABG x2 in 1982 and 1992, chronic systolic heart failure with ejection fraction 40% to 45%, type 2 diabetes, AAA repair, subdural hematoma, status post divya holes, presented to the hospital with a complaint of lower extremity swelling. The patient was recently admitted at [facility] between March 25 and March 29, 2016, due to acute CHF exacerbation. He stated that he thinks he was discharged too soon. He reported that he has lower extremity swelling since discharge. Normally, the swelling would go away when he woke up in the morning. However, over the past two weeks he has had persistent worsening lower extremity swelling. He is able to walk less than 10 feet before he gets short-winded. He claims that he is compliant to the medications and his diet. He has been on low-salt diet for decades. He was last evaluated by a shoe caser about a month ago. Last week, he saw MAIRA Arriaza. He was given IV Lasix outpatient last week. So far, he has not seen any improvement. His best serum creatinine during the last hospitalization was 1.82. BMP today showed creatinine of 3.9 and BUN of 110. The patient has no fever. He has no PND, no orthopnea, no cough. He always has chills. He has no dysuria, no hematuria. No nausea, vomiting. No diarrhea. PAST MEDICAL HISTORY: 1. COPD with right-sided heart failure. 2. Ischemic cardiomyopathy with ejection fraction 40% to 45%. 3. Coronary artery disease status post CABG x2 in 1982 and 1992. 4. Chronic atrial fibrillation. 5. Pulmonary hypertension. 6. Type 2 diabetes. 7. Hypertension. 8. Chronic kidney disease stage III to IV. 9. Hepatic liver cirrhosis. 10. BPH. 11. Valvular heart disease. PAST SURGICAL HISTORY: 1. Cholecystectomy. 2. CABG x2. FAMILY HISTORY: Positive for GA and stroke in the family. SOCIAL HISTORY: Patient is a former smoker. He denies current use of alcohol, tobacco, or illicit drugs. ALLERGIES: No known drug allergies. MEDICATIONS: Reviewed. REVIEW OF SYSTEMS: A 14-point review of systems was performed. PHYSICAL EXAMINATION: Vitals: Temperature 36.4, pulse 72, respiratory rate 20, blood pressure 118/58, O2 sat 95% on room air. General appearance: Awake, alert, oriented x3. In no acute distress. HEENT: Mild pallor. No jaundice. No lymphadenopathy. No thyroid enlargement. Heart: Irregular rhythm. Normal S1, S2. Soft systolic murmur noted. Lungs: Rales at the bases. No wheezing. No rhonchi. Abdomen: Soft, obese, active bowel sounds. No hepatosplenomegaly. Extremities: 3+ edema with positive for sacral and scrotal swelling. LABORATORIES: Sodium 131, potassium 5.1, chloride 93, bicarb 21, BUN 110, creatinine 3.9, glucose 104, calcium 9.2, total bilirubin 1.3, AST 23, ALT 15. ProBNP 4501. TSH 4.81. INR 1.12. Hemoglobin 9.2, platelets 134. Chest x-ray showed persistent right upper lobe airspace opacity which although may be related to underlying pneumonia or aspiration. Echocardiogram in March 2016 showed ejection fraction 45% to 50%, moderate to severe tricuspid regurgitation, right ventricular systolic pressure is 60 mmHg. ASSESSMENT: 1. Acute kidney injury on chronic kidney disease stage III. The etiology is likely due to low effective circulating volume from chronic systolic heart failure with underlying disease of moderate to severe tricuspid regurgitation and possible right-sided heart failure. The patient also had history of Benign prostatic hypertrophy. We also need to rule out obstructive uropathy. I would like to order another set of UA, urine eosinophils. We will order a bladder scan to check postvoid residual. Will continue IV diuretics already ordered by the primary team, 80 mg of Lasix q.12 h. I will add metolazone 5 mg p.o. x1 tonight. Will repeat kidney sonogram. 2. Hyperkalemia. 3. Acute on chronic systolic heart failure. 4. Chronic anemia likely due to chronic kidney disease. 5. Coronary artery disease status post coronary artery bypass graft. 6. Chronic obstructive pulmonary disease. 7. Chronic atrial fibrillation. 8. Type 2 diabetes. Thank you for the consultation. We will monitor along with you. THEO
[2016-04-13] MEDS: cefTRIAXone Inj 2,000 MG in Dextrose 5% Minibag Plus 50 ML IV SCH (23:31)
[2016-04-14] VITALS (12 sets, daily range): BP systolic 105–123; BP diastolic 47–64; PULSE 61–85; RESP 18–22; O2SAT 93–99
[2016-04-14 03:53] LABS: TROPONIN T 0.078 ug/L (0.0-0.011)
--- NOTE | 2016-04-14 06:43 | NUR ---
Urine output: PT voiding ind per urinal overnight. Pt pt out 1850 of cloudy urine. Edema noted in LE up into abdomen. Sp02 90s on 2 L NC. pt sleeping intermittently. Care ongoing.
[2016-04-14] MEDS: Insulin LISPRO 300 Unit/3 mL Inj SUBQ SCH ×4 (08:00→20:34)
[2016-04-14] MEDS: Sodium Chloride LOK Flush 10 mL Syringe IVFLUSH SCH ×3 (08:06→22:16)
[2016-04-14] MEDS: Furosemide 10 mg/mL 10 mL Inj IVPUSH SCH ×2 (08:06→19:41)
--- NOTE | 2016-04-14 12:32 | PCM.PNMED ---
Subjective Date of Service Apr 14, 2016 Subjective PVR 260 ml. feeling better, less LE swelling. mild SOB/DELEON. Exam Vital Signs Vital Sign - Last Date Time Temp Pulse Resp B/P Pulse Ox O2 Delivery O2 Flow Rate FiO2 04/14/16 11:46 36.4 71 18 113/63 99 Nasal Cannula 2.00 Intake and Output 04/13/16 04/13/16 04/14/16 Cumulative From/Thru 15:00 23:00 07:00 04/13/16 15:21 - 04/14/16 06:05 Intake Total 400 ml 355 ml 755 ml Output Total 1850 ml 1850 ml Balance 400 ml -1495 ml -1095 ml Intake Oral 400 ml 300 ml 700 ml IV Total 55 ml 55 ml Output Urine Total 1850 ml 1850 ml # Voids 2 5 7 # Bowel Movements 0 0 Exam General appearance: Awake, alert, oriented x3. In no acute distress. HEENT: Mild pallor. No jaundice. No lymphadenopathy. No thyroid enlargement. Heart: Irregular rhythm. Normal S1, S2. Soft systolic murmur noted. Lungs: Rales at the bases. No wheezing. No rhonchi. Abdomen: Soft, obese, active bowel sounds. No hepatosplenomegaly. Extremities: 2+ edema with positive for sacral and scrotal swelling. Lab and Diagnostics Result Diagram: 04/13/16 1500 04/14/16 0240 X-Rays, CTs and MRIs X-RAY CHEST ONE VIEW, PORTABLE 04/13/16 IMPRESSION: 1. Persistent right upper lobe airspace opacity which although may be related to underlying pneumonia or aspiration, given the persistence underlying neoplasm cannot be excluded and continued followup is recommended. Dictated by: Suhail Cavanaugh [facility] Interpreted: Siobhan Lowery MD on 04/13/2016 at 16: 49 Transcribed by: JOHN on 04/13/2016 at 16:50 Approved by: Siobhan Lowery M.D. on 04/13/2016 at 16:56 Assessment & Plan ASSESSMENT: 1. Acute kidney injury on chronic kidney disease stage III. - CRS, ATN. - negative urine eos. 2. Hyperkalemia. 3. Acute on chronic systolic heart failure. 4. Pyuria, suspecyed UTI U/cx STREP, PROBABLE ENTEROCOCCI. 5. Chronic anemia likely due to chronic kidney disease. 6. Coronary artery disease status post coronary artery bypass graft. 7. Chronic obstructive pulmonary disease. 8. Chronic atrial fibrillation. 9. Type 2 diabetes with diabetic nephropathy 10. Hypertension with hypertensive nephrosclerosis Plan: continue IV Lasix 80 mg twice a day, metolazone 5 mg by mouth once a day. insert santana cath. start flomax. Resuscitation Status: CPR: Attempt Resuscitation Terra Banks MD Apr 14, 2016 12:32
--- NOTE | 2016-04-14 14:14 | DRSVH ---
PROCEDURE: US RETROPERITONEAL SONOGRAM ([id number]) INDICATIONS: WENDY TECHNIQUE: Real-time scanning was performed of the kidneys and bladder, with image documentation. COMPARISON: [facility], CT, KIDNEY/ URETER/BLADDER, 06/08/2013, 10:15. [facility], CT, ABD OMEN/PELVIS WITH CONTRAST, 01/15/2015, 10:24. [facility], MR, ABDOMEN WITHOUT CONTRAST, 015, 17:38. [facility], US, ABDOMEN COMPLETE, 12/27/2014, 18:43. [facility], CT, CHEST/AB DOMEN WITH CONTRAST, 01/30/2015, 9:56. FINDINGS: Kidneys: Kidneys are normal in size. Right kidney measures 10.5 cm long; left kidney measures 10.6 cm long. Right renal cortical thickness is 1.3 cm; left renal cortical thickness is 1.1 cm. Renal c ortical echotexture is normal. No hydronephrosis or nephrolithiasis. No suspicious solid mass lesio ns. The exophytic cyst in the inferior pole of the left kidney described on prior examinations is no t visualized on the current study. Bladder: Pre-void bladder volume is 481 mL. Post-void residual is 274 mL. Pre-void images demonstr ate no intraluminal masses or stones. On pre-void images, the right ureteral jet is noted with color Doppler interrogation. The left ureter jet is not visualized. (Of note, ureteral jets may not be de tectable in up to 25% of cases due to insufficient differences in specific gravity between ureteral a nd bladder urine). There is a hyperechoic mass in the base of the urinary bladder at midline measuri ng 1.9 x 2.1 x 2.7 cm. Miscellaneous: No free pelvic fluid. IMPRESSION: 1. Normal ultrasound appearance of kidneys. No hydronephrosis. 2. 274 mL post void residual in the urinary bladder. 3. A 1.9 x 2.1 x 2.7 cm hyperechoic mass at the base of the urinary bladder. This is most likely caus ed by enlarged prostate. A bladder mass is less likely but not entirely excluded based on this exam. Dictated by: Emilia Gonzalez M.D. on 04/14/2016 at 13:52 Approved by: Emilia Gonzalez M.D. on 04/14/2016 at 14:13
--- NOTE | 2016-04-14 19:10 | NUR ---
Activity He has been walking independently to the bathroom multiple times today due to diuresing. Steady gait. Care continues.
[2016-04-14] MEDS: Albuterol-Ipratropium 3 mL Inhalation Solution NEB SCH (20:14)
[2016-04-14] MEDS: MeTOProlol XL 25 mg ER24 Tablet PO SCH (20:30)
--- NOTE | 2016-04-14 20:50 | PCM.PNMED ---
Subjective Date of Service Apr 14, 2016 Subjective overnight: no acute events today: Patient states that he feels improved significantly. He states that his diarrhea has improved such that he can urinate standing up without bowel incontinence. The patient denies any recent antibiotic usage. He states that his diarrhea caused his rectum to be sore with blood on the tissue, he states that this has improved as well. He denies fever or chills. Exam Vital Signs Vital Sign - Last Date Time Temp Pulse Resp B/P Pulse Ox O2 Delivery O2 Flow Rate FiO2 04/14/16 03:00 36.4 85 19 110/54 93 Nasal Cannula 2.00 Intake and Output 04/13/16 04/13/16 04/14/16 Cumulative From/Thru 15:00 23:00 07:00 04/13/16 15:21 - 04/14/16 06:05 Intake Total 400 ml 355 ml 755 ml Output Total 1850 ml 1850 ml Balance 400 ml -1495 ml -1095 ml Intake Oral 400 ml 300 ml 700 ml IV Total 55 ml 55 ml Output Urine Total 1850 ml 1850 ml # Voids 2 5 7 # Bowel Movements 0 0 Exam General: Alert, Oriented X3, Cooperative, No acute Distress Eyes: PERRLA, Scleral Anicteric Mouth: Mouth Normal, Mucous Membranes Moist/[place] Neck: Supple, no Thyromegaly, trachea central. Chest & Lungs: decreased breathe sounds globally with crackles in the mid lung gallo into the bases bilaterally and intermittent mild wheezing Cardiovascular: Normal S1, Normal S2, No Rubs/Gallops, irregularly irregular, ( elevated JVD, 3+ peripheral edema) Pulses: Radial (present and equal), Dorsalis Pedi (present and equal) Abdomen: Soft, Non-tender, Non-distended, Normoactive bowel tones. Musculoskeletal: Unremarkable. Normal range of motion, erythematous joints Extremities: 3+ pitting edema up to thighs, no cyanosis, no clubbing. Skin: No rashes. Warm and dry, no erythematous areas. Venous stasis changes. swelling around the penile foreskin Neurological: Grossly neurologically intact, has generalized weakness, Normal Speech, Sensation Intact Lymphatic: Lymph nodes Cervical and Axillary not palpable. : no santana in place Lab and Diagnostics Result Diagram: 04/13/16 1500 04/14/16 0240 X-Rays, CTs and MRIs X-RAY CHEST ONE VIEW, PORTABLE 04/13/16 IMPRESSION: 1. Persistent right upper lobe airspace opacity which although may be related to underlying pneumonia or aspiration, given the persistence underlying neoplasm cannot be excluded and continued followup is recommended. Dictated by: Suhail Cavanaugh [facility] Interpreted: Siobhan Lowery MD on 04/13/2016 at 16: 49 Transcribed by: JOHN on 04/13/2016 at 16:50 Approved by: Siobhan Lowery M.D. on 04/13/2016 at 16:56 Additional Diagnostics PROCEDURE: US RETROPERITONEAL SONOGRAM ([id number]) IMPRESSION: 1. Normal ultrasound appearance of kidneys. No hydronephrosis. 2. 274 mL post void residual in the urinary bladder. 3. A 1.9 x 2.1 x 2.7 cm hyperechoic mass at the base of the urinary bladder. This is most likely caused by enlarged prostate. A bladder mass is less likely but not entirely excluded based on this exam. Dictated by: Emilia Gonzalez M.D. on 04/14/2016 at 13:52 Approved by: Emilia Gonzalez M.D. on 04/14/2016 at 14:13 PRIOR Echocardiogram Report Interpretation Summary The left ventricle is normal in size. Left ventricular wall thickness is mild-moderately increased. The ejection fraction is estimated to be 45-50%. The right ventricle is normal size. The right ventricular systolic function is normal. There is moderate to severe tricuspid regurgitation. The right ventricular systolic pressure is estimated at 60 mmHg assuming a right atrial pressure of 15 mm Hg. The IVC is dilated (diameter is greater than 2.1 cm) and it collapses less than 50% with a sniff. This suggests a high right atrial pressure of 15 mm Hg. There is no pericardial effusion. No other echocardiographic abnormalities seen. Compared with the prior exam from 09/16/1915, LV systolic function appears mildly improved. The estimated PA pressure is slightly lower. No other significant changes. Reading Physician:01:41 PM Assessment & Plan Jerry Jones is a 86 yo with Chronic systolic heart failure, Chronic Atrial fibrillation, Pulmonary hypertension and Coronary artery disease who presents for a direct admit due to increasing dyspnea on exertion due to acute congestive heart failure exacerbation. Hospital Day 2 1. Acute on Chronic systolic Heart failure. Present on admission, - Trigger unclear but may be due to inadequate diuretic dosing due to worsening renal function. Consider underlying ischemic heart disease. Possible the urine infection may be causing cardiac stress. Differential diagnosis includes increasing Anasarca due to portal hypertension and cirrhosis, Hypothyroid disease - monitor on telemetry - TSH mildly elevated consistent with hypothyroidism - diuretic therapy with Lasix 80 mg IV bid and metolazone 5mg daily, titrate to weight and urine output - Cardiology consult requested by admitting doctor, appreciate recs - may consider limited echo for evaluation of heart function given recent echo in March included above 2. 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 Present on admission - Likely pre renal due to decreased renal perfusion due to poor cardiac output. Chronic disease related to Hypertensive Nephrosclerosis and Diabetic Nephropathy. - avoid nephrotoxic insults - monitor urine output - Nephrology consulted with recs to include Metolazone 5mg daily as well as Lasix 80mg twice daily - FENA calculates to 1.5% however given torsamide this is not an acurate diagnostic evaluation consider fractional excretion of urea if required in the future - ultrasound imaging 3. Urinary tract infection secondary to urinary retention from benign prostatic hypertrophy, Present on admission, under evaluation - Consider underlying prostate pathology including likely benign prostate hypertrophy versus prostate cancer versus prostate infection given 74 mL post void residual in the urinary bladder with 1.9 x 2.1 x 2.7 cm hyperechoic mass at the base of the urinary bladder likely prostate however cannot rule out bladder mass - Blood cultures x 2 - continued urinary retention followed by Dr. Patel of urology on terazosin outpatient, admitting physician has started tamsulosin 0.4mg daily - Ceftriaxone IV for empiric antibiotics 4. Anasarca secondary to tricuspid regurgitation, pulmonary hypertension, and renal insufficiency. Present on admission, under evaluation - recommend continuing diuretics Nephrology service following combination of Lasix 80mg BID and metolazone 5mg daily 5. Chronic anemia likely secondary to chronic kidney disease, stable - No clinical evidence of GI bleeding - Continue to monitor 6. Thrombocytopenia, present on admission, stable -Ultrasound demonstrating heterogeneously increased echo texture suspicious for chronic liver disease such as hepatitis or cirrhosis -Recommend patient has outpatient follow-up regarding this issue 7. COPD with Chronic respiratory failure, stable - No evidence of acute exacerbation without any coughing or sputum changes - continue oxygen supplementation (2 L) - no indications for steroids or antibiotics - duonebs QIDWA - consider adding back long acting Brovana 8 Chronic Atrial fibrillation, stable - monitor on telemetry, ok off for showers - continue outpatient Metoprolol for rate control 9 Diabetes mellitus Type 2, stable - low correction Lispro algorithm - holding Metformin - continuing Lantus 04/15, will start below regular outpatient dosing given he takes this medication PRN 10 Gout, chronic, stable - restart allopurinol - holding cholchicine 11. Coronary artery disease with history of multiple bypass grafts, chronic, stable - cardiology consulted by admitting physician, appreciate recommendations and time - elevated troponin trended and considered likely secondary to chronic kidney disease given no chest pain without EKG changes - restart home statin medication - Metoprolol ER for rate control 12 History of falls, present on admission, stable - obtain records from [facility] about possible neurosurgical intervention requiring cranial divya holes - Acetaminophen as needed for mild pain/fever/headache - Bowel regimen as needed - Antiemetic as needed disposition: patient will likely be discharged in the next several days with follow up with his PCP in [place], barring unforeseen complications in therapy. . Pain Evaluation: Adequate Pain Control Resuscitation Status: CPR: Attempt Resuscitation Attending Statement The patient was seen and examined together with Dr. Jason on 04/14/2016 and I agree with the history, exam and plan as outlined in the note above. . Virgil Jason DO Apr 14, 2016 06:56 Leland Noel MD Apr 16, 2016 17:52
[2016-04-14] MEDS: cefTRIAXone Inj 2,000 MG in Dextrose 5% Minibag Plus 50 ML IV SCH (22:16)
[2016-04-15] VITALS (14 sets, daily range): BP systolic 105–127; BP diastolic 48–66; PULSE 62–87; RESP 16–22; O2SAT 89–98
[2016-04-15 03:11] LABS: BASOPHILS % (AUTO) 0.5 % (0-3); EOSINOPHILS % (AUTO) 1.6 % (0-5); MONOCYTES % (AUTO) 10.8 % (4-12); Mean Corpuscular Hemoglobin 26.6 pg (27.0-35.0); Mean Corpuscular Volume 87.8 fL (81-100); NEUTROPHILS % (AUTO) 72.7 % (40-74); Platelet Count 126 bil/L (150-400)
[2016-04-15 03:24] LABS: INR 1.16 ratio
[2016-04-15 03:53] LABS: Magnesium 2.9 mg/dL (1.6-2.6); Phosphorus 5.5 mg/dL (2.5-4.9)
[2016-04-15 04:10] LABS: TROPONIN T 0.076 ug/L (0.0-0.011)
--- NOTE | 2016-04-15 04:29 | NUR ---
Cardiac: Tele Afib 70s overnight. Pt did have a 7 beat run of Vtach- pt asymptomatic. Noted improvement in swelling in bilateral LE. Pt continue to diureses- voiding frequently and putting out ample amount of urine. pt refusing santana cath at this time. Post void residual showing less then 100ml.
[2016-04-15] MEDS: Sodium Chloride LOK Flush 10 mL Syringe IVFLUSH SCH ×2 (07:44→18:13)
[2016-04-15] MEDS: Furosemide 10 mg/mL 10 mL Inj IVPUSH SCH ×2 (07:44→20:41)
[2016-04-15] MEDS: MeTOProlol XL 25 mg ER24 Tablet PO SCH (07:45)
[2016-04-15] MEDS: Insulin LISPRO 300 Unit/3 mL Inj SUBQ SCH ×4 (07:51→20:42)
[2016-04-15] MEDS: Albuterol-Ipratropium 3 mL Inhalation Solution NEB SCH ×4 (08:38→20:58)
--- NOTE | 2016-04-15 09:18 | DRSVH ---
PROCEDURE: X-RAY CHEST ONE VIEW, PORTABLE ([id number]) INDICATIONS: possible pneumonia TECHNIQUE: One view of the chest was acquired. COMPARISON: [facility], CR, CHEST 2 VIEW, 01/25/2015, 13:40. [facility], CR, XR CH EST 1VW (PORTABLE), 04/13/2016, 16:13. FINDINGS: Surgical changes and devices: Post median sternotomy. Lungs and pleura: Persistent airspace opacity within the right upper lobe not significantly changed o therwise lungs are hyperinflated and clear. No pneumothorax. Mediastinum: Mediastinal contours appear normal. Heart size is normal. Bones and chest wall: No suspicious bony lesions. Overlying soft tissues appear unremarkable. Mult iple healed rib fractures redemonstrated. IMPRESSION: 1. Persistent right upper lobe airspace opacity. Continued radiographic surveillance to resolution is recommended. Dictated by: Suhail CHAVARRIA Interpreted: Alla Heck MD on 04/15/2016 at 9:14 Transcribed by: AGUSTINA on 04/15/2016 at 9:18 Approved by: Alla Heck M.D. on 04/15/2016 at 16:33
--- NOTE | 2016-04-15 11:45 | PCM.PNNEPH ---
Subjective Date of Service Apr 15, 2016 Subjective (+) Persistent LE swelling but continue to improve. no new complaints today. no CP/SOB/F/C/N/V. Exam Vital Signs Vital Sign - Last Date Time Temp Pulse Resp B/P Pulse Ox O2 Delivery O2 Flow Rate FiO2 04/15/16 11:18 64 22 95 Nasal Cannula 2.00 04/15/16 07:41 36.3 105/66 Intake and Output 04/14/16 04/14/16 04/15/16 Cumulative From/Thru 15:00 23:00 07:00 04/13/16 15:21 - 04/15/16 05:15 Intake Total 750 ml 755 ml 2260 ml Output Total 1000 ml 1800 ml 4650 ml Balance -250 ml -1045 ml -2390 ml Intake Oral 750 ml 700 ml 2150 ml IV Total 55 ml 110 ml Output Urine Total 1000 ml 1800 ml 4650 ml # Voids 3 10 # Bowel Movements 1 0 1 Exam General appearance: Awake, alert, oriented x3. In no acute distress. HEENT: Mild pallor. No jaundice. No lymphadenopathy. No thyroid enlargement. Heart: Irregular rhythm. Normal S1, S2. Soft systolic murmur noted. Lungs: Rales at the bases. No wheezing. No rhonchi. Abdomen: Soft, obese, active bowel sounds. No hepatosplenomegaly. Extremities: 1+ edema with positive for sacral and scrotal swelling. Lab and Diagnostics Result Diagram: 04/15/16 0305 04/15/16 0305 X-Rays, CTs and MRIs X-RAY CHEST ONE VIEW, PORTABLE 04/13/16 IMPRESSION: 1. Persistent right upper lobe airspace opacity which although may be related to underlying pneumonia or aspiration, given the persistence underlying neoplasm cannot be excluded and continued followup is recommended. Dictated by: Suhail CHAVARRIA Interpreted: Siobhan Lowery MD on 04/13/2016 at 16: 49 Transcribed by: JOHN on 04/13/2016 at 16:50 Approved by: Siobhan Lowery M.D. on 04/13/2016 at 16:56 Additional Diagnostics PROCEDURE: US RETROPERITONEAL SONOGRAM ([id number]) IMPRESSION: 1. Normal ultrasound appearance of kidneys. No hydronephrosis. 2. 274 mL post void residual in the urinary bladder. 3. A 1.9 x 2.1 x 2.7 cm hyperechoic mass at the base of the urinary bladder. This is most likely caused by enlarged prostate. A bladder mass is less likely but not entirely excluded based on this exam. Dictated by: Emilia Gonzalez M.D. on 04/14/2016 at 13:52 Approved by: Emilia Gonzalez M.D. on 04/14/2016 at 14:13 PRIOR Echocardiogram Report Interpretation Summary The left ventricle is normal in size. Left ventricular wall thickness is mild-moderately increased. The ejection fraction is estimated to be 45-50%. The right ventricle is normal size. The right ventricular systolic function is normal. There is moderate to severe tricuspid regurgitation. The right ventricular systolic pressure is estimated at 60 mmHg assuming a right atrial pressure of 15 mm Hg. The IVC is dilated (diameter is greater than 2.1 cm) and it collapses less than 50% with a sniff. This suggests a high right atrial pressure of 15 mm Hg. There is no pericardial effusion. No other echocardiographic abnormalities seen. Compared with the prior exam from 09/16/1915, LV systolic function appears mildly improved. The estimated PA pressure is slightly lower. No other significant changes. Reading Physician:01:41 PM Plan Impression ASSESSMENT: 1. Acute kidney injury on chronic kidney disease stage III. - CRS, ATN. - negative urine eos. 2. Hyperkalemia. 3. Acute on chronic systolic heart failure. 4. Pyuria, suspecyed UTI U/cx STREP, PROBABLE ENTEROCOCCI. 5. Chronic anemia likely due to chronic kidney disease. 6. Coronary artery disease status post coronary artery bypass graft. 7. Chronic obstructive pulmonary disease. 8. Chronic atrial fibrillation. 9. Type 2 diabetes with diabetic nephropathy 10. Hypertension with hypertensive nephrosclerosis Plan: continue IV Lasix 80 mg twice a day, metolazone 5 mg daily. continue flomax KCL 40 meq q8 hr x 3 doses. Terra Banks MD Apr 15, 2016 11:45
--- NOTE | 2016-04-15 11:52 | NUR ---
Social Work Note: Initial Assessment Data& Assessment: EMR reviewed. SW met with pt at bedside to discuss discharge planning, SW role explained. Jerry Jones is a 86 year old male admitted on 04/13/2016 for Exacerbation heart failure. Pt has Medicare and for life supplement. Pt lives in a one story home in [place], alone, with five steps to enter the home. Pt is independent at baseline and does not require any DME for ambulation. Pt is independent in his room. Pt does wear 2L of 02 at baseline through [employer]. Pt drives. Pt denies HH or SNF hx. Pt denies LTC insurance or [facility] service connection. Pt provided DPOA paperwork to RN. Pt brother transporting pt home at time of discharge. Pt denies any other needs at this time. SW to continue to follow if any needs arise. Plan: Anticipated discharge home via POV when medically ready. Pt brother transporting pt home at time of discharge. Pt denies any other needs at this time. SW to continue to follow if any needs arise. JANICE Aguilera Addendum: 04/15/16 at 1156 by ZOYA PENA Amended: Links added.
[2016-04-15] MEDS: Potassium Chloride 20 mEq SR Tablet PO SCH ×2 (12:45→20:42)
--- NOTE | 2016-04-15 13:44 | NUR ---
Evaluation completed. Please go to "Notes" then click on "Assessments and Notes" (bottom left corner of screen). Then select appropriate discipline tab on top of screen.
[2016-04-15] MEDS ORDERED: Insulin GLARgine 100 Unit/mL Syringe SUBQ PRN (18:20)
--- NOTE | 2016-04-15 18:23 | PCM.PNMED ---
Subjective Date of Service Apr 15, 2016 Subjective overnight: Tele Afib 70s overnight with a 7 beat run of Vtach- pt asymptomatic. Post void residual showing less then 100ml. today: Patient denies any ongoing shortness of breath or palpitations including overnight. Patient states he has no trouble starting his urine stream and that his stream is strong at baseline. The patient denies any penile discharge and states that he does not masturbate so he would not know of any issues with ejaculation. The patient states that he has had a discussion with his urologist about the risk of prostate cancer. Exam Vital Signs Vital Sign - Last Date Time Temp Pulse Resp B/P Pulse Ox O2 Delivery O2 Flow Rate FiO2 04/15/16 04:10 62 04/15/16 02:36 36.5 19 111/64 94 Nasal Cannula 2.00 Intake and Output 04/14/16 04/14/16 04/15/16 Cumulative From/Thru 14:59 22:59 06:59 04/13/16 15:21 - 04/15/16 05:15 Intake Total 750 ml 755 ml 2260 ml Output Total 1000 ml 1800 ml 4650 ml Balance -250 ml -1045 ml -2390 ml Intake Oral 750 ml 700 ml 2150 ml IV Total 55 ml 110 ml Output Urine Total 1000 ml 1800 ml 4650 ml # Voids 3 10 # Bowel Movements 1 0 1 Exam General: Alert, Oriented X3, Cooperative, No acute Distress Eyes: PERRLA, Scleral Anicteric Mouth: Mouth Normal, Mucous Membranes Moist/Healy Neck: Supple, no Thyromegaly, trachea central. Chest & Lungs: improved breathe sounds globally with crackles in the mid lung gallo into the bases bilaterally and no wheezing or rhonchi Cardiovascular: Normal S1, Normal S2, No Rubs/Gallops, irregularly irregular, ( elevated JVD, 3+ peripheral edema) Pulses: Radial (present and equal), Dorsalis Pedi (present and equal) Abdomen: Soft, Non-tender, Non-distended, Normoactive bowel tones. Musculoskeletal: Unremarkable. Normal range of motion, erythematous joints Extremities: 3+ pitting edema up to thighs, no cyanosis, no clubbing. Skin: No rashes. Warm and dry, no erythematous areas. Venous stasis changes. swelling around the penile foreskin Neurological: Grossly neurologically intact, has generalized weakness, Normal Speech, Sensation Intact Lymphatic: Lymph nodes Cervical and Axillary not palpable. : no santana in place Lab and Diagnostics Result Diagram: 04/15/1630404/15/16304 Microbiology Microbiology DOMINGO CULT URINE Final 04/15/16 Organism 1 ENTEROCOCCUS SPECIES U COLONY COUNT/QUANTITY >100,000 CFU/ml 1. ENTEROCOCCUS SPECIES M.I.C Interp --------- ------ * CIPROFLOXACIN <=0.5 S * LEVOFLOXACIN 0.5 S * NITROFURANTOIN <=16 S * PENICILLIN-G 2 S * TETRACYCLINE <=1 S * VANCOMYCIN 1 S X-Rays, CTs and MRIs X-RAY CHEST ONE VIEW, PORTABLE IMPRESSION: 1. Persistent right upper lobe airspace opacity which although may be related to underlying pneumonia or aspiration, given the persistence underlying neoplasm cannot be excluded and continued followup is recommended. Dictated by: Suhail CHAVARRIA Interpreted: Siobhan Lowery MD on 04/13/2016 at 16: 49 Transcribed by: JOHN on 04/13/2016 at 16:50 Approved by: Siobhan Lowery M.D. on 04/13/2016 at 16:56 X-RAY CHEST ONE VIEW, PORTABLE IMPRESSION: 1. Persistent right upper lobe airspace opacity. Continued radiographic surveillance to resolution is recommended. Dictated by: Suhail CHAVARRIA Interpreted: Alla Heck MD on 04/15/2016 at 9:14 Transcribed by: AGUSTINA on 04/15/2016 at 9:18 Approved by: Alla Heck M.D. on 04/15/2016 at 16:33 Additional Diagnostics PROCEDURE: US RETROPERITONEAL SONOGRAM ([id number]) IMPRESSION: 1. Normal ultrasound appearance of kidneys. No hydronephrosis. 2. 274 mL post void residual in the urinary bladder. 3. A 1.9 x 2.1 x 2.7 cm hyperechoic mass at the base of the urinary bladder. This is most likely caused by enlarged prostate. A bladder mass is less likely but not entirely excluded based on this exam. Dictated by: Emilia Gonzalez M.D. on 04/14/2016 at 13:52 Approved by: Emilia Gonzalez M.D. on 04/14/2016 at 14:13 PRIOR Echocardiogram Report Interpretation Summary The left ventricle is normal in size. Left ventricular wall thickness is mild-moderately increased. The ejection fraction is estimated to be 45-50%. The right ventricle is normal size. The right ventricular systolic function is normal. There is moderate to severe tricuspid regurgitation. The right ventricular systolic pressure is estimated at 60 mmHg assuming a right atrial pressure of 15 mm Hg. The IVC is dilated (diameter is greater than 2.1 cm) and it collapses less than 50% with a sniff. This suggests a high right atrial pressure of 15 mm Hg. There is no pericardial effusion. No other echocardiographic abnormalities seen. Compared with the prior exam from 09/16/1915, LV systolic function appears mildly improved. The estimated PA pressure is slightly lower. No other significant changes. Reading Physician:01:41 PM Assessment & Plan Jerry Jones is a 86 yo with Chronic systolic heart failure, Chronic Atrial fibrillation, Pulmonary hypertension and Coronary artery disease who presents for a direct admit due to increasing dyspnea on exertion due to acute congestive heart failure exacerbation. Hospital Day 3 1. Acute on Chronic systolic Heart failure. Present on admission, - Trigger unclear but may be due to inadequate diuretic dosing due to worsening renal function. Consider underlying ischemic heart disease. Possible the urine infection may be causing cardiac stress. Differential diagnosis includes increasing Anasarca due to portal hypertension and cirrhosis, Hypothyroid disease - monitor on telemetry - TSH mildly elevated consistent with hypothyroidism - diuretic therapy with Lasix 80 mg IV bid and metolazone 5mg daily, titrate to weight and urine output - Cardiology consult requested by admitting doctor, appreciate recs - may consider limited echo for evaluation of heart function given recent echo in March included above 2. 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 Present on admission - Likely pre renal due to decreased renal perfusion due to poor cardiac output. Chronic disease related to Hypertensive Nephrosclerosis and Diabetic Nephropathy. - avoid nephrotoxic insults - monitor urine output - Nephrology consulted with recs to include Metolazone 5mg daily as well as Lasix 80mg twice daily - FENA calculates to 1.5% however given torsamide this is not an acurate diagnostic evaluation consider fractional excretion of urea if required in the future - Fractional excretion of urea calculates to 36 % which is in the in the indeterminate range - ultrasound imaging shows 74 mL post void residual in the urinary bladder with 1.9 x 2.1 x 2.7 cm hyperechoic mass at the base of the urinary bladder likely prostate however cannot rule out bladder mass 3. Urinary tract infection secondary to urinary retention from benign prostatic hypertrophy, Present on admission, under evaluation - Consider underlying prostate pathology including likely benign prostate hypertrophy versus prostate cancer versus prostate infection given 74 mL post void residual in the urinary bladder with 1.9 x 2.1 x 2.7 cm hyperechoic mass at the base of the urinary bladder likely prostate however cannot rule out bladder mass - Blood cultures x 2 - continued urinary retention followed by Dr. Patel of urology on terazosin outpatient, admitting physician has started tamsulosin 0.4mg daily - Culture and sensitivity showed Enterococcus with resistance to Ceftriaxone IV - Ceftriaxone IV converted to Doxycycline PO will treat for minimum of 7 days given complicated UTI with consideration for longer if prostatitis considered likely 4. Anasarca secondary to tricuspid regurgitation, pulmonary hypertension, and renal insufficiency. Present on admission, under evaluation - recommend continuing diuretics Nephrology service following combination of Lasix 80mg BID and metolazone 5mg daily 5. Chronic anemia likely secondary to chronic kidney disease, stable - No clinical evidence of GI bleeding - Continue to monitor 6. Thrombocytopenia, present on admission, stable -Ultrasound demonstrating heterogeneously increased echo texture suspicious for chronic liver disease such as hepatitis or cirrhosis -Recommend patient has outpatient follow-up regarding this issue 7. COPD with Chronic respiratory failure, stable - No evidence of acute exacerbation without any coughing or sputum changes - continue oxygen supplementation (2 L) - no indications for steroids or antibiotics - duonebs QIDWA - consider adding back long acting Brovana 8 Chronic Atrial fibrillation, stable - monitor on telemetry, ok off for showers - continue outpatient Metoprolol for rate control 9 Diabetes mellitus Type 2, stable - low correction Lispro algorithm - holding Metformin - continuing Lantus 04/15, will start below regular outpatient dosing given he takes this medication PRN 10 Gout, chronic, stable - restart allopurinol - holding cholchicine 11. Coronary artery disease with history of multiple bypass grafts, chronic, stable - cardiology consulted by admitting physician, appreciate recommendations and time - elevated troponin trended and considered likely secondary to chronic kidney disease given no chest pain without EKG changes - restart home statin medication - Metoprolol ER for rate control 12 History of falls, present on admission, stable - obtain records from [facility] about possible neurosurgical intervention requiring cranial divya holes - Acetaminophen as needed for mild pain/fever/headache - Bowel regimen as needed - Antiemetic as needed disposition: patient will likely be discharged in the next several days with follow up with his PCP in [place], barring unforeseen complications in therapy. . Pain Evaluation: Adequate Pain Control GI Prophylaxis: Not indicated VTE Prophylaxis: SCDs VTE Mechanical Devices: Intermittant Pneumatic CD Resuscitation Status: CPR: Attempt Resuscitation Attending Statement The patient was seen and examined together with Dr. Jason on 04/15/2016 and I agree with the history, exam and plan as outlined in the note above. . Virgil Jason DO Apr 15, 2016 07:45 Leland Noel MD Apr 18, 2016 13:29
--- NOTE | 2016-04-15 18:30 | NUR ---
Blood Glucose Today his blood sugars have been higher than before. Breakfast: 176, lunch: 226, and dinner: 191. Sliding scale insulin was given accordingly. Discussed his increased blood sugars with Dr. Tellez. No new orders at that time. Care continues.
[2016-04-16] VITALS (11 sets, daily range): BP systolic 106–128; BP diastolic 62–68; PULSE 72–84; RESP 14–20; O2SAT 94–97
[2016-04-16] MEDS: Sodium Chloride LOK Flush 10 mL Syringe IVFLUSH SCH ×3 (00:57→17:22)
[2016-04-16] MEDS: Potassium Chloride 20 mEq SR Tablet PO SCH (04:44)
--- NOTE | 2016-04-16 04:50 | NUR ---
Ambulation Pt able to ambulate to and from the bathroom independently and position self in the bed without assistance.
[2016-04-16 07:33] LABS: BASOPHILS % (AUTO) 0.5 % (0-3); EOSINOPHILS % (AUTO) 2.4 % (0-5); MONOCYTES % (AUTO) 11.6 % (4-12); Mean Corpuscular Hemoglobin 26.6 pg (27.0-35.0); Mean Corpuscular Volume 89.6 fL (81-100); NEUTROPHILS % (AUTO) 70.5 % (40-74); Platelet Count 116 bil/L (150-400)
[2016-04-16] MEDS: Albuterol-Ipratropium 3 mL Inhalation Solution NEB SCH ×4 (07:50→21:00)
[2016-04-16] MEDS ORDERED: Insulin GLARgine 100 Unit/mL Syringe SUBQ ONE (08:00)
[2016-04-16 08:05] LABS: Magnesium 2.6 mg/dL (1.6-2.6); Phosphorus 3.7 mg/dL (2.5-4.9)
[2016-04-16] MEDS: Insulin LISPRO 300 Unit/3 mL Inj SUBQ SCH ×4 (08:50→19:50)
[2016-04-16] MEDS: MeTOProlol XL 25 mg ER24 Tablet PO SCH (08:52)
[2016-04-16] MEDS: Furosemide 10 mg/mL 10 mL Inj IVPUSH SCH (08:53)
--- NOTE | 2016-04-16 09:43 | DRSVH ---
PROCEDURE: X-RAY CHEST ONE VIEW, PORTABLE ([id number]) INDICATIONS: chf TECHNIQUE: One view of the chest was acquired. COMPARISON: [facility], CR, XR CHEST 1VW (PORTABLE), 04/15/2016, 5:32. FINDINGS: Surgical changes and devices: Post median sternotomy. Lungs and pleura: Persistent airspace opacity within the right upper lobe not significantly changed o therwise lungs are hyperinflated and clear. No pneumothorax. Mediastinum: Mediastinal contours appear normal. Heart size is normal. Bones and chest wall: No suspicious bony lesions. Overlying soft tissues appear unremarkable. Mult iple healed rib fractures redemonstrated. IMPRESSION: Persistent right upper lobe airspace opacity not significantly changed. Continued radiogr aphic surveillance to resolution is recommended. Dictated by: Suhail Cavanaugh [facility] Interpreted: Jeanna Walters MD on 04/16/2016 at 9:42 Transcribed by: NATY on 04/16/2016 at 9:43 Approved by: Jeanna Walters MD, PhD on 04/16/2016 at 17:02
--- NOTE | 2016-04-16 10:17 | PCM.PNNEPH ---
Subjective Date of Service Apr 16, 2016 Subjective He is doing well overall. His serum BUN/cr continue to improve. He has good appetite. Exam Vital Signs Vital Sign - Last Date Time Temp Pulse Resp B/P Pulse Ox O2 Delivery O2 Flow Rate FiO2 04/16/16 09:00 Supplement Oxygen 04/16/16 08:37 36.6 84 16 122/67 97 2.50 04/16/16 03:08 95 Intake and Output 04/15/16 04/15/16 04/16/16 Cumulative From/Thru 15:00 23:00 07:00 04/13/16 15:21 - 04/16/16 05:16 Intake Total 1200 ml 1200 ml 4660 ml Output Total 2800 ml 1600 ml 9050 ml Balance -1600 ml -400 ml -4390 ml Intake Oral 1200 ml 1200 ml 4550 ml IV Total 110 ml Output Urine Total 2800 ml 1600 ml 9050 ml # Voids 10 # Bowel Movements 0 1 Exam General appearance: Awake, alert, oriented x3. In no acute distress. HEENT: Mild pallor. No jaundice. No lymphadenopathy. No thyroid enlargement. Heart: Irregular rhythm. Normal S1, S2. Soft systolic murmur noted. Lungs: Rales at the bases. No wheezing. No rhonchi. Abdomen: Soft, obese, active bowel sounds. No hepatosplenomegaly. Extremities: 1+ edema with positive for sacral and scrotal swelling. Lab and Diagnostics Result Diagram: 04/16/1670904/16/16709 Microbiology Microbiology DOMINGO CULT URINE Final 04/15/16-0828 Organism 1 ENTEROCOCCUS SPECIES U COLONY COUNT/QUANTITY >100,000 CFU/ml 1. ENTEROCOCCUS SPECIES M.I.C Interp --------- ------ * CIPROFLOXACIN <=0.5 S * LEVOFLOXACIN 0.5 S * NITROFURANTOIN <=16 S * PENICILLIN-G 2 S * TETRACYCLINE <=1 S * VANCOMYCIN 1 S X-Rays, CTs and MRIs X-RAY CHEST ONE VIEW, PORTABLE IMPRESSION: 1. Persistent right upper lobe airspace opacity which although may be related to underlying pneumonia or aspiration, given the persistence underlying neoplasm cannot be excluded and continued followup is recommended. Dictated by: Suhail CHAVARRIA Interpreted: Siobhan Lowery MD on 04/13/2016 at 16: 49 Transcribed by: JOHN on 04/13/2016 at 16:50 Approved by: Siobhan Lowery M.D. on 04/13/2016 at 16:56 X-RAY CHEST ONE VIEW, PORTABLE IMPRESSION: 1. Persistent right upper lobe airspace opacity. Continued radiographic surveillance to resolution is recommended. Dictated by: Suhail Cavanaugh [facility] Interpreted: Alla Heck MD on 04/15/2016 at 9:14 Transcribed by: AGUSTINA on 04/15/2016 at 9:18 Approved by: Alla Heck M.D. on 04/15/2016 at 16:33 Additional Diagnostics PROCEDURE: US RETROPERITONEAL SONOGRAM ([id number]) IMPRESSION: 1. Normal ultrasound appearance of kidneys. No hydronephrosis. 2. 274 mL post void residual in the urinary bladder. 3. A 1.9 x 2.1 x 2.7 cm hyperechoic mass at the base of the urinary bladder. This is most likely caused by enlarged prostate. A bladder mass is less likely but not entirely excluded based on this exam. Dictated by: Emilia Gonzalez M.D. on 04/14/2016 at 13:52 Approved by: Emilia Gonzalez M.D. on 04/14/2016 at 14:13 PRIOR Echocardiogram Report Interpretation Summary The left ventricle is normal in size. Left ventricular wall thickness is mild-moderately increased. The ejection fraction is estimated to be 45-50%. The right ventricle is normal size. The right ventricular systolic function is normal. There is moderate to severe tricuspid regurgitation. The right ventricular systolic pressure is estimated at 60 mmHg assuming a right atrial pressure of 15 mm Hg. The IVC is dilated (diameter is greater than 2.1 cm) and it collapses less than 50% with a sniff. This suggests a high right atrial pressure of 15 mm Hg. There is no pericardial effusion. No other echocardiographic abnormalities seen. Compared with the prior exam from 09/16/1915, LV systolic function appears mildly improved. The estimated PA pressure is slightly lower. No other significant changes. Reading Physician:01:41 PM Plan Impression 1. Acute kidney injury on chronic kidney disease stage III. - CRS, ATN. - negative urine eos. 2. Hyperkalemia. 3. Acute on chronic systolic heart failure. 4. Pyuria, suspected UTI U/cx STREP, PROBABLE ENTEROCOCCI. 5. Chronic anemia likely due to chronic kidney disease. 6. Coronary artery disease status post coronary artery bypass graft. 7. Chronic obstructive pulmonary disease. 8. Chronic atrial fibrillation. 9. Type 2 diabetes with diabetic nephropathy 10. Hypertension with hypertensive nephrosclerosis Plan: d/c IV Lasix 80 mg twice a day. start torsemide 40 mg BID. continue metolazone 5 mg daily. continue flomax. Terra Banks MD Apr 16, 2016 10:17
--- NOTE | 2016-04-16 14:34 | NUR ---
Orthostatic blood pressures Lying down: BP 118/68 P 77 Sitting: BP 116/62 P 78 Standing: BP 121/69 P 82 Asymptomatic, pt tolerated well.
--- NOTE | 2016-04-16 16:54 | PCM.PNMED ---
Subjective Date of Service Apr 16, 2016 Subjective overnight: no acute events today: The patient states that his legs are almost back to his normal shape. He states that his right leg is still big but it was also bigger than the left when he began to accumulate the fluid initially. He denies any trouble with urination or emptying his bladder. He states that he is having bowel movements which are now firm. He denies chest pain or shortness or breath. Exam Vital Signs Vital Sign - Last Date Time Temp Pulse Resp B/P Pulse Ox O2 Delivery O2 Flow Rate FiO2 04/16/16 07:52 77 20 96 Nasal Cannula 2.00 04/16/16 03:08 36.9 119/65 95 Intake and Output 04/15/16 04/15/16 04/16/16 Cumulative From/Thru 15:00 23:00 07:00 04/13/16 15:21 - 04/16/16 05:16 Intake Total 1200 ml 1200 ml 4660 ml Output Total 2800 ml 1600 ml 9050 ml Balance -1600 ml -400 ml -4390 ml Intake Oral 1200 ml 1200 ml 4550 ml IV Total 110 ml Output Urine Total 2800 ml 1600 ml 9050 ml # Voids 10 # Bowel Movements 0 1 Exam General: Alert, Oriented X3, Cooperative, No acute Distress Eyes: PERRLA, Scleral Anicteric Mouth: Mouth Normal, Mucous Membranes Moist/[place] Neck: Supple, no Thyromegaly, trachea central, patient has JVD right sided > left Chest & Lungs: improved breathe sounds globally with crackles in the lower lung gallo into the bases bilaterally and no wheezing or rhonchi Cardiovascular: Normal S1, Normal S2, No Rubs/Gallops, irregularly irregular, ( elevated JVD, 3+ peripheral edema right greater than left) Pulses: Radial (present and equal), Dorsalis Pedi (present and equal) Abdomen: Soft, Non-tender, Non-distended, Normoactive bowel tones. Musculoskeletal: Unremarkable. Normal range of motion, erythematous joints Extremities: 3+ pitting edema up to thighs, no cyanosis, no clubbing. Skin: No rashes. Warm and dry, no erythematous areas. Venous stasis changes. swelling around the penile foreskin Neurological: Grossly neurologically intact, Normal Speech, Sensation Intact Lymphatic: Lymph nodes Cervical and Axillary not palpable. : no santana in place Lab and Diagnostics Result Diagram: 04/16/16 0710 04/15/16 0305 Microbiology Microbiology DOMINGO CULT URINE Final 04/15/16 Organism 1 ENTEROCOCCUS SPECIES U COLONY COUNT/QUANTITY >100,000 CFU/ml 1. ENTEROCOCCUS SPECIES M.I.C Interp --------- ------ * CIPROFLOXACIN <=0.5 S * LEVOFLOXACIN 0.5 S * NITROFURANTOIN <=16 S * PENICILLIN-G 2 S * TETRACYCLINE <=1 S * VANCOMYCIN 1 S X-Rays, CTs and MRIs X-RAY CHEST ONE VIEW, PORTABLE IMPRESSION: 1. Persistent right upper lobe airspace opacity which although may be related to underlying pneumonia or aspiration, given the persistence underlying neoplasm cannot be excluded and continued followup is recommended. Dictated by: Suhail CHAVARRIA Interpreted: Siobhan Lowery MD on 04/13/2016 at 16: 49 Transcribed by: JOHN on 04/13/2016 at 16:50 Approved by: Siobhan Lowery M.D. on 04/13/2016 at 16:56 X-RAY CHEST ONE VIEW, PORTABLE IMPRESSION: 1. Persistent right upper lobe airspace opacity. Continued radiographic surveillance to resolution is recommended. Dictated by: Suhail CHAVARRIA Interpreted: Alla Heck MD on 04/15/2016 at 9:14 Transcribed by: AGUSTINA on 04/15/2016 at 9:18 Approved by: Alla Heck M.D. on 04/15/2016 at 16:33 X-RAY CHEST ONE VIEW, PORTABLE ([id number]) IMPRESSION: Persistent right upper lobe airspace opacity not significantly changed. Continued radiographic surveillance to resolution is recommended. Dictated by: uShail Cavanaugh RRA Interpreted: Jeanna Walters MD on 04/16/2016 at 9:42 Transcribed by: NATY on 04/16/2016 at 9:43 Additional Diagnostics PROCEDURE: US RETROPERITONEAL SONOGRAM ([id number]) IMPRESSION: 1. Normal ultrasound appearance of kidneys. No hydronephrosis. 2. 274 mL post void residual in the urinary bladder. 3. A 1.9 x 2.1 x 2.7 cm hyperechoic mass at the base of the urinary bladder. This is most likely caused by enlarged prostate. A bladder mass is less likely but not entirely excluded based on this exam. Dictated by: Emilia Gonzalez M.D. on 04/14/2016 at 13:52 Approved by: Emilia Gonzalez M.D. on 04/14/2016 at 14:13 PRIOR Echocardiogram Report Interpretation Summary The left ventricle is normal in size. Left ventricular wall thickness is mild-moderately increased. The ejection fraction is estimated to be 45-50%. The right ventricle is normal size. The right ventricular systolic function is normal. There is moderate to severe tricuspid regurgitation. The right ventricular systolic pressure is estimated at 60 mmHg assuming a right atrial pressure of 15 mm Hg. The IVC is dilated (diameter is greater than 2.1 cm) and it collapses less than 50% with a sniff. This suggests a high right atrial pressure of 15 mm Hg. There is no pericardial effusion. No other echocardiographic abnormalities seen. Compared with the prior exam from 09/16/1915, LV systolic function appears mildly improved. The estimated PA pressure is slightly lower. No other significant changes. Reading Physician:01:41 PM Assessment & Plan Jerry Jones is a 86 yo with Chronic systolic heart failure, Chronic Atrial fibrillation, Pulmonary hypertension and Coronary artery disease who presents for a direct admit due to increasing dyspnea on exertion due to acute congestive heart failure exacerbation. Hospital Day 4 1. Acute on Chronic systolic Heart failure. Present on admission, - Trigger unclear but may be due to inadequate diuretic dosing due to worsening renal function. Consider underlying ischemic heart disease. Possible the urine infection may be causing cardiac stress. Differential diagnosis includes increasing Anasarca due to portal hypertension and cirrhosis, Hypothyroid disease - monitor on telemetry - TSH mildly elevated consistent with hypothyroidism - diuretic therapy with Lasix 80 mg IV bid discontinued and Torsemide 40mg BID and metolazone 5mg daily, titrate to weight and urine output - Cardiology consult requested by admitting doctor, appreciate recs - may consider limited echo for evaluation of heart function given recent echo in March included above 2. 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 Present on admission - Likely pre renal due to decreased renal perfusion due to poor cardiac output. Chronic disease related to Hypertensive Nephrosclerosis and Diabetic Nephropathy. - avoid nephrotoxic insults - monitor urine output - Nephrology consulted with recs to include Metolazone 5mg daily as well as Torsemide 40mg twice daily - FENA calculates to 1.5% however given torsemide this is not an accurate diagnostic evaluation consider fractional excretion of urea - Fractional excretion of urea calculates to 36 % which is in the in the indeterminate range - ultrasound imaging shows 74 mL post void residual in the urinary bladder with 1.9 x 2.1 x 2.7 cm hyperechoic mass at the base of the urinary bladder likely prostate however cannot rule out bladder mass 3. Urinary tract infection secondary to urinary retention from benign prostatic hypertrophy, Present on admission, under evaluation - Consider underlying prostate pathology including likely benign prostate hypertrophy versus prostate cancer versus prostate infection given 74 mL post void residual in the urinary bladder with 1.9 x 2.1 x 2.7 cm hyperechoic mass at the base of the urinary bladder likely prostate however cannot rule out bladder mass - Blood cultures x 2 - continued urinary retention followed by Dr. Patel of urology on terazosin outpatient, admitting physician has started tamsulosin 0.4mg daily - Culture and sensitivity showed Enterococcus with resistance to Ceftriaxone IV - Initially Ceftriaxone IV converted to Doxycycline PO, which was discontinued in favor of Amoxicillin 500mg BID will treat for minimum of 7 days given complicated UTI - Patient should have follow up with urology for evaluation 4. Anasarca secondary to tricuspid regurgitation, pulmonary hypertension, and renal insufficiency. Present on admission, under evaluation - Nephrology consulted with recs to include Metolazone 5mg daily as well as Torsemide 40mg twice daily 5. Chronic anemia likely secondary to chronic kidney disease, stable - No clinical evidence of GI bleeding - Continue to monitor 6. Thrombocytopenia, present on admission, stable -Ultrasound demonstrating heterogeneously increased echo texture suspicious for chronic liver disease such as hepatitis or cirrhosis -Recommend patient has outpatient follow-up regarding this issue 7. COPD with Chronic respiratory failure, stable - No evidence of acute exacerbation without any coughing or sputum changes - continue oxygen supplementation (2 L) - no indications for steroids or antibiotics - duonebs QIDWA - consider adding back long acting Brovana 8 Chronic Atrial fibrillation, stable - monitor on telemetry, ok off for showers - continue outpatient Metoprolol for rate control 9 Diabetes mellitus Type 2, stable - low correction Lispro algorithm - holding Metformin - continuing Lantus 04/15, will start below regular outpatient dosing given he takes this medication PRN 10 Gout, chronic, stable - restart home allopurinol - holding cholchicine 11. 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 . GI Prophylaxis: Not indicated VTE Prophylaxis: SCDs VTE Mechanical Devices: Intermittant Pneumatic CD Resuscitation Status: CPR: Attempt Resuscitation Attending Statement The patient was seen and examined together with Dr. Jason on 04/16/2016 and I agree with the history, exam and plan as outlined in the note above. . Virgil Jason DO Apr 16, 2016 07:59 Leland Noel MD Apr 18, 2016 13:30
--- NOTE | 2016-04-16 17:44 | NUR ---
diuresing status A&O this shift. Pleasant and cooperative. Had Lasix 80 IVP this AM and then switched to Torsemide PO. Has been ambulating independently to and from the bathroom with no issues. No c/o SOB today or difficulty breathing. Humidifier added for cannula comfort. Pt voided about 10 times today. Urine appears pale yellow in color. Medium formed BM today. Feet, ankles, and lower legs +1-2 pitting edema bilaterally. Blood sugars were 180, 272, and 222. Correctional Humalog administered X3.
[2016-04-17] MEDS: Sodium Chloride LOK Flush 10 mL Syringe IVFLUSH SCH ×2 (00:30→08:40)
--- NOTE | 2016-04-17 01:36 | NUR ---
Weight/Mentation/Ambulation Pt weighed with standing scale. Last night pt's weight at 89.6 lbs and currently at 87.6 lbs. Pt alert and orientated and ambulating without assistance in the room.
[2016-04-17 03:06] LABS: BASOPHILS % (AUTO) 0.5 % (0-3); EOSINOPHILS % (AUTO) 3.3 % (0-5); Mean Corpuscular Hemoglobin 26.5 pg (27.0-35.0); Mean Corpuscular Volume 88.9 fL (81-100); NEUTROPHILS % (AUTO) 66.7 % (40-74); Platelet Count 123 bil/L (150-400)
[2016-04-17 03:24] VITALS: BP 110/62; PULSE 77; RESP 20; O2SAT 95
[2016-04-17 04:05] LABS: ERYTHROCYTE SEDIMENTATION RATE 19 mm/hr (0-30)
[2016-04-17] MEDS ORDERED: Potassium Chloride 20 mEq SR Tablet PO ONE ×2 (05:05→08:30)
[2016-04-17 05:34] VITALS: PULSE 75
[2016-04-17 08:00] VITALS: PULSE 68
[2016-04-17] MEDS: MeTOProlol XL 25 mg ER24 Tablet PO SCH (08:40)
[2016-04-17 08:47] VITALS: BP 117/73; PULSE 83; RESP 18; O2SAT 96
[2016-04-17] MEDS: Insulin LISPRO 300 Unit/3 mL Inj SUBQ SCH ×2 (08:47→12:55)
[2016-04-17 10:04] VITALS: PULSE 78; RESP 18; O2SAT 96
--- NOTE | 2016-04-17 11:12 | PCM.PNNEPH ---
Subjective Date of Service Apr 17, 2016 Subjective Clinically, he has felt better. Trace LE edema noted. He wants to be released home if possible. Exam Vital Signs Vital Sign - Last Date Time Temp Pulse Resp B/P Pulse Ox O2 Delivery O2 Flow Rate FiO2 04/17/16 10:04 78 18 96 Nasal Cannula 2.50 04/17/16 08:47 36.6 117/73 04/16/16 03:08 95 Intake and Output 04/16/16 04/16/16 04/17/16 Cumulative From/Thru 15:00 23:00 07:00 04/13/16 15:21 - 04/17/16 05:58 Intake Total 1030 ml 700 ml 6390 ml Output Total 3205 ml 2000 ml 12375 ml Balance -2175 ml -1300 ml -7865 ml Intake Oral 1030 ml 700 ml 6280 ml IV Total 110 ml Output Urine Total 3205 ml 2000 ml 27370 ml # Voids 1 4 15 # Bowel Movements 1 2 Exam General appearance: Awake, alert, oriented x3. In no acute distress. HEENT: Mild pallor. No jaundice. No lymphadenopathy. No thyroid enlargement. Heart: Irregular rhythm. Normal S1, S2. Soft systolic murmur noted. Lungs: Rales at the bases. No wheezing. No rhonchi. Abdomen: Soft, obese, active bowel sounds. No hepatosplenomegaly. Extremities: trace edema, chronic skin changes. Lab and Diagnostics Result Diagram: 04/17/16 0240 04/17/16 0240 Microbiology Microbiology DOMINGO CULT URINE Final 04/15/16-827 Organism 1 ENTEROCOCCUS SPECIES U COLONY COUNT/QUANTITY >100,000 CFU/ml 1. ENTEROCOCCUS SPECIES M.I.C Interp --------- ------ * CIPROFLOXACIN <=0.5 S * LEVOFLOXACIN 0.5 S * NITROFURANTOIN <=16 S * PENICILLIN-G 2 S * TETRACYCLINE <=1 S * VANCOMYCIN 1 S X-Rays, CTs and MRIs X-RAY CHEST ONE VIEW, PORTABLE IMPRESSION: 1. Persistent right upper lobe airspace opacity which although may be related to underlying pneumonia or aspiration, given the persistence underlying neoplasm cannot be excluded and continued followup is recommended. Dictated by: Suhail CHAVARRIA Interpreted: Siobhan Lowery MD on 04/13/2016 at 16: 49 Transcribed by: JOHN on 04/13/2016 at 16:50 Approved by: Siobhan Lowery M.D. on 04/13/2016 at 16:56 X-RAY CHEST ONE VIEW, PORTABLE IMPRESSION: 1. Persistent right upper lobe airspace opacity. Continued radiographic surveillance to resolution is recommended. Dictated by: Suhail CHAVARRIA Interpreted: Alla Heck MD on 04/15/2016 at 9:14 Transcribed by: AGUSTINA on 04/15/2016 at 9:18 Approved by: Alla Heck M.D. on 04/15/2016 at 16:33 X-RAY CHEST ONE VIEW, PORTABLE ([id number]) IMPRESSION: Persistent right upper lobe airspace opacity not significantly changed. Continued radiographic surveillance to resolution is recommended. Dictated by: Suhail CHAVARRIA Interpreted: Jeanna Walters MD on 04/16/2016 at 9:42 Transcribed by: NATY on 04/16/2016 at 9:43 Additional Diagnostics PROCEDURE: US RETROPERITONEAL SONOGRAM ([id number]) IMPRESSION: 1. Normal ultrasound appearance of kidneys. No hydronephrosis. 2. 274 mL post void residual in the urinary bladder. 3. A 1.9 x 2.1 x 2.7 cm hyperechoic mass at the base of the urinary bladder. This is most likely caused by enlarged prostate. A bladder mass is less likely but not entirely excluded based on this exam. Dictated by: Emilia Gonzalez M.D. on 04/14/2016 at 13:52 Approved by: Emilia Gonzalez M.D. on 04/14/2016 at 14:13 PRIOR Echocardiogram Report Interpretation Summary The left ventricle is normal in size. Left ventricular wall thickness is mild-moderately increased. The ejection fraction is estimated to be 45-50%. The right ventricle is normal size. The right ventricular systolic function is normal. There is moderate to severe tricuspid regurgitation. The right ventricular systolic pressure is estimated at 60 mmHg assuming a right atrial pressure of 15 mm Hg. The IVC is dilated (diameter is greater than 2.1 cm) and it collapses less than 50% with a sniff. This suggests a high right atrial pressure of 15 mm Hg. There is no pericardial effusion. No other echocardiographic abnormalities seen. Compared with the prior exam from 09/16/1915, LV systolic function appears mildly improved. The estimated PA pressure is slightly lower. No other significant changes. Reading Physician:01:41 PM Plan Impression 1. Acute kidney injury on chronic kidney disease stage III. - CRS, ATN. - negative urine eos. 2. Hyperkalemia. 3. Acute on chronic systolic heart failure. 4. UTI with underlying disease of BPH. 5. Chronic anemia likely due to chronic kidney disease. 6. Coronary artery disease status post coronary artery bypass graft. 7. Chronic obstructive pulmonary disease. 8. Chronic atrial fibrillation. 9. Type 2 diabetes with diabetic nephropathy 10. Hypertension with hypertensive nephrosclerosis Plan: Continue torsemide 40 mg BID. Daily weight at home. Current weight 87.6 kg. If he has weight gain > 3-5 ibs, please increase torsemide to 80 mg in am and 40 in pm. D/c metolazone. Daily KCL 20 meq. F/u with renal in 1-2 weeks. Terra Banks MD Apr 17, 2016 11:12
--- NOTE | 2016-04-17 11:16 | NUR ---
Social Work: Readiness for Discharge D: Pt discussed in am rounds. Pt will likely be ready for discharge home tomorrow. Pt requiring nephrology consult due to new kidney functioning. suggested possible home health for the pt at discharge. BRANCH OFFICER met with pt at bedside to reassess and discuss HH recommendations. Pt states that he is not homebound and does not feel that he needs supportive services from HH. He is declining this referral at this time. Pt identifies no further discharge needs and states that his brother will transport him home when medically stable. No further sw needs or barriers identified at this time. A: Pt who is I at baseline. P: Anticipate pt to discharge home via POV once medically stable; BRANCH OFFICER to continue to follow. JANICE Jackson
[2016-04-17 12:30] VITALS: BP 126/71; PULSE 77; RESP 20; O2SAT 98
[2016-04-17] MEDS ORDERED: AMOX500T2 PO (13:48)
[2016-04-17] MEDS ORDERED: TORS20TA PO (13:48)
[2016-04-17] MEDS ORDERED: SACC250C PO (13:48)
[2016-04-17] MEDS ORDERED: POTA10TA38 PO (13:48)
--- NOTE | 2016-04-17 15:32 | NUR ---
Discharge Pt left the facility at 1500 with his brother by his side and a [employer]ANT assisting out to the car. Received his afternoon dose of torsemide 40mg prior to discharging. Tele was removed. IV was removed. Pt was provided with educational material and everything was gone over verbally. Instructions included information on new meds and information on current condition. All material was understood by both patient and family member. Pt understood and verbally repeated back knowledge of his upcoming appointment. Pt left with all personal belongings.
--- NOTE | 2016-04-17 19:41 | PCM.PNMED ---
Subjective Date of Service Apr 17, 2016 Subjective Overnight: No acute events Today: Patient states that he feels ready to go home. States his legs seem to be around baseline. Understands the plan moving forward including taking diuretic pills paster around his body weight. He will follow-up with the [facility] residency clinic for evaluation of his blood counts and electrolytes. Exam Vital Signs Vital Sign - Last Date Time Temp Pulse Resp B/P Pulse Ox O2 Delivery O2 Flow Rate FiO2 04/17/16 05:34 75 04/17/16 03:46 Supplement Oxygen 04/17/16 03:24 36.3 20 110/62 95 2.50 04/16/16 03:08 95 Intake and Output 04/16/16 04/16/16 04/17/16 Cumulative From/Thru 15:00 23:00 07:00 04/13/16 15:21 - 04/17/16 05:58 Intake Total 1030 ml 700 ml 6390 ml Output Total 3205 ml 2000 ml 29440 ml Balance -2175 ml -1300 ml -7865 ml Intake Oral 1030 ml 700 ml 6280 ml IV Total 110 ml Output Urine Total 3205 ml 2000 ml 97574 ml # Voids 1 4 15 # Bowel Movements 1 2 Exam General: Alert, Oriented X3, Cooperative, No acute Distress Eyes: PERRLA, Scleral Anicteric Mouth: Mouth Normal, Mucous Membranes Moist/[place] Neck: Supple, no Thyromegaly, trachea central, patient has JVD right sided > left Chest & Lungs: improved breathe sounds globally with crackles in the lower lung gallo into the bases bilaterally and no wheezing or rhonchi Cardiovascular: Normal S1, Normal S2, No Rubs/Gallops, irregularly irregular Pulses: Radial (present and equal), Dorsalis Pedi (present and equal) Abdomen: Soft, Non-tender, Non-distended, Normoactive bowel tones. Musculoskeletal: Unremarkable. Normal range of motion, erythematous joints Extremities: +2 pitting edema up to mid tibia, no cyanosis, no clubbing. Venous stasis changes circumferentially around the distal lower extremity Skin: No rashes. Warm and dry, no erythematous areas. Neurological: Grossly neurologically intact, Normal Speech, Sensation Intact Lymphatic: Lymph nodes Cervical and Axillary not palpable. : no santana in place Lab and Diagnostics Result Diagram: 04/17/1623904/17/16239 Microbiology Microbiology DOMINGO CULT URINE Final 04/15/16 Organism 1 ENTEROCOCCUS SPECIES U COLONY COUNT/QUANTITY >100,000 CFU/ml 1. ENTEROCOCCUS SPECIES M.I.C Interp --------- ------ * CIPROFLOXACIN <=0.5 S * LEVOFLOXACIN 0.5 S * NITROFURANTOIN <=16 S * PENICILLIN-G 2 S * TETRACYCLINE <=1 S * VANCOMYCIN 1 S X-Rays, CTs and MRIs X-RAY CHEST ONE VIEW, PORTABLE IMPRESSION: 1. Persistent right upper lobe airspace opacity which although may be related to underlying pneumonia or aspiration, given the persistence underlying neoplasm cannot be excluded and continued followup is recommended. Dictated by: Suhail CHAVARRIA Interpreted: Siobhan Lowery MD on 04/13/2016 at 16: 49 Transcribed by: JOHN on 04/13/2016 at 16:50 Approved by: Siobhan Lowery M.D. on 04/13/2016 at 16:56 X-RAY CHEST ONE VIEW, PORTABLE IMPRESSION: 1. Persistent right upper lobe airspace opacity. Continued radiographic surveillance to resolution is recommended. Dictated by: Suhail CHAVARRIA Interpreted: Alla Heck MD on 04/15/2016 at 9:14 Transcribed by: AGUSTINA on 04/15/2016 at 9:18 Approved by: Alla Heck M.D. on 04/15/2016 at 16:33 X-RAY CHEST ONE VIEW, PORTABLE ([id number]) IMPRESSION: Persistent right upper lobe airspace opacity not significantly changed. Continued radiographic surveillance to resolution is recommended. Dictated by: Suhail Cavanaugh RRA Interpreted: Jeanna Walters MD on 04/16/2016 at 9:42 Transcribed by: NATY on 04/16/2016 at 9:43 Additional Diagnostics PROCEDURE: US RETROPERITONEAL SONOGRAM ([id number]) IMPRESSION: 1. Normal ultrasound appearance of kidneys. No hydronephrosis. 2. 274 mL post void residual in the urinary bladder. 3. A 1.9 x 2.1 x 2.7 cm hyperechoic mass at the base of the urinary bladder. This is most likely caused by enlarged prostate. A bladder mass is less likely but not entirely excluded based on this exam. Dictated by: Emilia Gonzalez M.D. on 04/14/2016 at 13:52 Approved by: Emilia Gonzalez M.D. on 04/14/2016 at 14:13 PRIOR Echocardiogram Report Interpretation Summary The left ventricle is normal in size. Left ventricular wall thickness is mild-moderately increased. The ejection fraction is estimated to be 45-50%. The right ventricle is normal size. The right ventricular systolic function is normal. There is moderate to severe tricuspid regurgitation. The right ventricular systolic pressure is estimated at 60 mmHg assuming a right atrial pressure of 15 mm Hg. The IVC is dilated (diameter is greater than 2.1 cm) and it collapses less than 50% with a sniff. This suggests a high right atrial pressure of 15 mm Hg. There is no pericardial effusion. No other echocardiographic abnormalities seen. Compared with the prior exam from 09/16/1915, LV systolic function appears mildly improved. The estimated PA pressure is slightly lower. No other significant changes. Reading Physician:01:41 PM Assessment & Plan Jerry Jones is a 86 yo with Chronic systolic heart failure, Chronic Atrial fibrillation, Pulmonary hypertension and Coronary artery disease who presents for a direct admit due to increasing dyspnea on exertion due to acute congestive heart failure exacerbation. Hospital Day 4 1. Acute on Chronic systolic Heart failure. Present on admission, - Trigger unclear but may be due to inadequate diuretic dosing due to worsening renal function. Consider underlying ischemic heart disease. Possible the urine infection may be causing cardiac stress. Differential diagnosis includes increasing Anasarca due to portal hypertension and cirrhosis, Hypothyroid disease - TSH mildly elevated consistent with hypothyroidism patient will follow with primary care physician - diuretic therapy with Lasix 80 mg IV bid discontinued and Torsemide 40mg BID and metolazone 5mg daily, titrate to weight and urine output - Cardiology consult requested by admitting doctor, no recommendations given -Patient to be discharged with torsemide 40 mg twice a day with instructions to increase morning dose to 80 mg based off of body weight 2. 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 Present on admission - Likely pre renal due to decreased renal perfusion due to poor cardiac output. Chronic disease related to Hypertensive Nephrosclerosis and Diabetic Nephropathy. - Nephrology consulted with recs to include Metolazone 5mg daily as well as Torsemide 40mg twice daily - FENA calculates to 1.5% however given torsemide this is not an accurate diagnostic evaluation consider fractional excretion of urea - Fractional excretion of urea calculates to 36 % which is in the in the indeterminate range - ultrasound imaging shows 74 mL post void residual in the urinary bladder with 1.9 x 2.1 x 2.7 cm hyperechoic mass at the base of the urinary bladder likely prostate however cannot rule out bladder mass - Patient will be seen in follow-up with urology as an outpatient 3. Urinary tract infection secondary to urinary retention from benign prostatic hypertrophy, Present on admission, under evaluation - Consider underlying prostate pathology including likely benign prostate hypertrophy versus prostate cancer versus prostate infection given 74 mL post void residual in the urinary bladder with 1.9 x 2.1 x 2.7 cm hyperechoic mass at the base of the urinary bladder likely prostate however cannot rule out bladder mass - Blood cultures x 2 - continued urinary retention followed by Dr. Patel of urology on terazosin outpatient, admitting physician has started tamsulosin 0.4mg daily - Culture and sensitivity showed Enterococcus with resistance to Ceftriaxone IV - Initially Ceftriaxone IV converted to Doxycycline PO, which was discontinued in favor of Amoxicillin 500mg BID will treat for minimum of 7 days given complicated UTI - Patient will follow up with urology for evaluation after discharge 4. Anasarca secondary to tricuspid regurgitation, pulmonary hypertension, and renal insufficiency. Present on admission, under evaluation - Nephrology consulted with recs to include Metolazone 5mg daily as well as Torsemide 40mg twice daily 5. Chronic anemia likely secondary to chronic kidney disease, stable - No clinical evidence of GI bleeding - Continue to monitor with follow-up after discharge 6. Thrombocytopenia, present on admission, stable -Ultrasound demonstrating heterogeneously increased echo texture suspicious for chronic liver disease such as hepatitis or cirrhosis -Recommend patient has outpatient follow-up regarding this issue - Continue to monitor with follow-up after discharge 7. COPD with Chronic respiratory failure, stable - No evidence of acute exacerbation without any coughing or sputum changes - Able to discontinue oxygen supplementation (2 L) - no indications for steroids or antibiotics - duonebs QIDWA to be discontinued after discharge -Patient to return to normal outpatient inhalers 8 Chronic Atrial fibrillation, present on admission stable - monitor on telemetry, ok off for showers - continue outpatient Metoprolol for rate control 9 Diabetes mellitus Type 2, present on admission stable - low correction Lispro algorithm - holding Metformin - continuing Lantus 04/15, will start below regular outpatient dosing given he takes this medication PRN 10 Gout, chronic, present on admission stable - restart home allopurinol - holding cholchicine 11. 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 GI Prophylaxis: Not indicated VTE Prophylaxis: SCDs VTE Mechanical Devices: Intermittant Pneumatic CD Resuscitation Status: CPR: Attempt Resuscitation Attending Statement The patient was seen and examined together with Dr. Jason on 04/17/2016 and I agree with the history, exam and plan as outlined in the note above. . Virgil Jason DO Apr 17, 2016 06:47 Leland Noel MD Apr 18, 2016 15:17
--- NOTE | 2016-04-17 19:44 | PCM.DIMED ---
Virgil Jason DO 04/17/16 1410: Discharge Instructions Date of Service Apr 17, 2016 Dates of Hospitalization Apr 13, 2016 at 14:22 Discharge Diagnosis Discharge Diagnosis 1. Acute on Chronic systolic Heart failure 2. Acute on Chronic Kidney Disease 3. Urinary tract infection secondary to urinary retention from benign prostatic hypertrophy 4. Anasarca secondary to tricuspid regurgitation, pulmonary hypertension, and renal insufficiency 5. Chronic anemia likely secondary to chronic kidney disease 6. Thrombocytopenia, present on admission, stable 7. COPD with Chronic respiratory failure 8 Chronic Atrial fibrillation 9 Diabetes mellitus Type 2 10 Gout, chronic, stable 11. Coronary artery disease with history of multiple bypass grafts Medication Instructions Please finish the amoxicillin antibiotic course the you have been prescribed for your urinary tract infection. Also prescribed is a probiotic to replace the good bacteria in your got will be killed off by the amoxicillin please finish the course of probiotic. Follow the torsemide dosing described below and the patient instructions. Your regular dosing of the water pill is torsemide 40 mg taken at 8 AM and 3 PM. If you weigh more than 2 pounds from the day prior to take an extra 40 mg torsemide at 8 AM for a total of 80 mg at 8 AM, as well as your regular 40mg at 3 PM dosing. You have also been prescribed potassium chloride 20 mEq to be taken with breakfast every day. If you require to take an additional 40 mg of torsemide in a day you should also increase her dose of potassium chloride 40 mEq. The remainder of your regular medications and remained intact. Diet Low fat, Low Sodium (CHF Low Salt diet ( 2 grams or less sodium/day)), Heart Healthy, Other (ideally less than 1.5L per day but based more off body weight) Activity Limited until seen by PCP Call your provider Fever or Chills, Shortness of breath, Bleeding, Chest pain, Vomitting, Excessive diarrhea, Weakness (unilateral), Other Patient Instructions 1. Your weight today is 190 lbs. you could stand to lose an additional 5 pounds of water weight. You scale may read differently than 190 pounds, but use your initial weight when you arrive home as your baseline weight. 2. Weigh yourself immediately when you get home and this will be her baseline weight then laid yourself every day in the morning after using the restroom and write it down. 3. Take your weight log to your doctor visits. 4. Your regular dosing of the water pill is torsemide 40 mg taken at 8 AM and 3 PM. If you weigh more than 2 pounds from the day prior to take an extra 40 mg torsemide at 8 AM for a total of 80 mg at 8 AM. 5. Call your doctor if you gain 5 pounds over 2 days. Follow-up plan Please follow up with you the [facility] residency clinic within the next week for evaluation of your health and medications checks as well as obtaining follow up blood work to confirm that your water pill and potassium replacement are effective. Your doctor at that time should also check your blood cells counts as you have low red blood cell counts. Labs your doctor should order next week include complete blood counts with differential and a comprehensive metabolic panel. Please followup with your regular PCP for evaluation of your overall health at your earliest convenience if possible, as it is understood that you are in the process of changing her PCP, please follow up. You may want to followup with your jacquard fixer within the next several weeks for further evaluation of your overall heart help. Follow-up Provider: [facility] Residency [facility] Follow-up with PCP in: 1 week Provider: Jeanna Patel MD Follow-up in: 2 weeks Mid-level Provider (F9): Tyron Alas PA-C Follow-up with Mid-level in: 3 weeks CHF Clinic: 2 weeks Leland Noel MD 04/18/16 1330: Discharge Instructions Attending's Statement The patient was seen and examined together with Dr. Jason on 04/17/2016 and I agree with the history, exam and plan as outlined in the note above. . Virgil Jason DO Apr 17, 2016 14:10 Leland Noel MD Apr 18, 2016 13:30
--- NOTE | 2016-04-17 19:51 | PCM.DC.MED ---
Discharge Summary Date of Service Apr 17, 2016 Dates of Hospitalization Date of Hospital Admission Apr 13, 2016 at 14:22 Date of Discharge: Apr 17, 2016 Providers: Admitting Physician: Federico Joiner MD Primary Care Physician: Lam Duron MD Attending Physician: Federico Joiner MD Diagnosis at Time of Discharge Diagnosis at Time of Discharge 1. Acute on Chronic systolic Heart failure 2. Acute on Chronic Kidney Disease 3. Urinary tract infection secondary to urinary retention from benign prostatic hypertrophy 4. Anasarca secondary to tricuspid regurgitation, pulmonary hypertension, and renal insufficiency 5. Chronic anemia likely secondary to chronic kidney disease 6. Thrombocytopenia, present on admission, stable 7. COPD with Chronic respiratory failure 8 Chronic Atrial fibrillation 9 Diabetes mellitus Type 2 10 Gout, chronic, stable 11. Coronary artery disease with history of multiple bypass grafts Consultations nephrology cardiology, no recommendations given Procedures XRay, CTs & MRIs X-RAY CHEST ONE VIEW, PORTABLE IMPRESSION: 1. Persistent right upper lobe airspace opacity which although may be related to underlying pneumonia or aspiration, given the persistence underlying neoplasm cannot be excluded and continued followup is recommended. Dictated by: Suhail CHAVARRIA Interpreted: Siobhan Lowery MD on 04/13/2016 at 16: 49 Transcribed by: JOHN on 04/13/2016 at 16:50 Approved by: Siobhan Lowery M.D. on 04/13/2016 at 16:56 X-RAY CHEST ONE VIEW, PORTABLE IMPRESSION: 1. Persistent right upper lobe airspace opacity. Continued radiographic surveillance to resolution is recommended. Dictated by: Suhail CHAVARRIA Interpreted: Alla Heck MD on 04/15/2016 at 9:14 Transcribed by: AGUSTINA on 04/15/2016 at 9:18 Approved by: Alla Heck M.D. on 04/15/2016 at 16:33 X-RAY CHEST ONE VIEW, PORTABLE ([id number]) IMPRESSION: Persistent right upper lobe airspace opacity not significantly changed. Continued radiographic surveillance to resolution is recommended. Dictated by: Suhail Cavanaugh RRA Interpreted: Jeanna Walters MD on 04/16/2016 at 9:42 Transcribed by: NATY on 04/16/2016 at 9:43 Other Diagnostics PROCEDURE: US RETROPERITONEAL SONOGRAM ([id number]) IMPRESSION: 1. Normal ultrasound appearance of kidneys. No hydronephrosis. 2. 274 mL post void residual in the urinary bladder. 3. A 1.9 x 2.1 x 2.7 cm hyperechoic mass at the base of the urinary bladder. This is most likely caused by enlarged prostate. A bladder mass is less likely but not entirely excluded based on this exam. Dictated by: Emilia Gonzalez M.D. on 04/14/2016 at 13:52 Approved by: Emilia Gonzalez M.D. on 04/14/2016 at 14:13 PRIOR Echocardiogram Report Interpretation Summary The left ventricle is normal in size. Left ventricular wall thickness is mild-moderately increased. The ejection fraction is estimated to be 45-50%. The right ventricle is normal size. The right ventricular systolic function is normal. There is moderate to severe tricuspid regurgitation. The right ventricular systolic pressure is estimated at 60 mmHg assuming a right atrial pressure of 15 mm Hg. The IVC is dilated (diameter is greater than 2.1 cm) and it collapses less than 50% with a sniff. This suggests a high right atrial pressure of 15 mm Hg. There is no pericardial effusion. No other echocardiographic abnormalities seen. Compared with the prior exam from 09/16/1915, LV systolic function appears mildly improved. The estimated PA pressure is slightly lower. No other significant changes. Reading Physician:01:41 PM Brief History from the H&P of Federico Joiner MD "Jerry Jones is a 86 yo with Chronic systolic heart failure, Chronic Atrial fibrillation, Pulmonary hypertension and Coronary artery disease who presents for a direct admit due to increasing dyspnea on exertion due to acute congestive heart failure exacerbation Patient was actually in the observation unit trying to get some IV diuretics ordered by Cardiology CHAN Arriaza. Apparently the patient gained significant amount of weight shortly after he was discharged on 03/29 as he was told drink lots of fluids. Ivone instructed the patient to limit his fluid intake and a increased dose of Torsemide was prescribed. He was also send to the observation unit to received IV diuretics. His renal function was noted to be increasing with Cr increasing from 1.8 to 2.85. Patient reported some loose stools this morning but no melena or hematochezia. He denies any coughing, no chest pain. He notes increased leg edema later in the day. He reports compliance with all his medications. He also follows a 2 gram sodium diet daily." Hospital Course 1. Acute on Chronic systolic Heart failure. Present on admission, - Trigger unclear but may be due to inadequate diuretic dosing due to worsening renal function. Consider underlying ischemic heart disease. Possible the urine infection may be causing cardiac stress. Differential diagnosis includes increasing Anasarca due to portal hypertension and cirrhosis, Hypothyroid disease - TSH mildly elevated consistent with hypothyroidism patient will follow with primary care physician - diuretic therapy with Lasix 80 mg IV bid discontinued and Torsemide 40mg BID and metolazone 5mg daily, titrate to weight and urine output - Cardiology consult requested by admitting doctor, no recommendations given - Patient to be discharged with torsemide 40 mg twice a day with instructions to increase morning dose to 80 mg based off of body weight, with KCL 20mEq daily and increased to 40mEq with increased torsemide dose 2. 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 Present on admission - Likely pre renal due to decreased renal perfusion due to poor cardiac output. Chronic disease related to Hypertensive Nephrosclerosis and Diabetic Nephropathy. - Nephrology consulted with recs to include Metolazone 5mg daily as well as Torsemide 40mg twice daily - FENA calculates to 1.5% however given torsemide this is not an accurate diagnostic evaluation consider fractional excretion of urea - Fractional excretion of urea calculates to 36 % which is in the in the indeterminate range - ultrasound imaging shows 74 mL post void residual in the urinary bladder with 1.9 x 2.1 x 2.7 cm hyperechoic mass at the base of the urinary bladder likely prostate however cannot rule out bladder mass - Patient will be seen in follow-up with urology as an outpatient 3. Urinary tract infection secondary to urinary retention from benign prostatic hypertrophy, Present on admission, under evaluation - Consider underlying prostate pathology including likely benign prostate hypertrophy versus prostate cancer versus prostate infection given 74 mL post void residual in the urinary bladder with 1.9 x 2.1 x 2.7 cm hyperechoic mass at the base of the urinary bladder likely prostate however cannot rule out bladder mass - Blood cultures x 2 - continued urinary retention followed by Dr. Patel of urology on terazosin outpatient, admitting physician has started tamsulosin 0.4mg daily - Culture and sensitivity showed Enterococcus with resistance to Ceftriaxone IV - Initially Ceftriaxone IV converted to Doxycycline PO, which was discontinued in favor of Amoxicillin 500mg BID will treat for minimum of 7 days given complicated UTI - Patient will follow up with urology for evaluation after discharge 4. Anasarca secondary to tricuspid regurgitation, pulmonary hypertension, and renal insufficiency. Present on admission, under evaluation - Nephrology consulted with recs to include Metolazone 5mg daily as well as Torsemide 40mg twice daily 5. Chronic anemia likely secondary to chronic kidney disease, stable - No clinical evidence of GI bleeding - Continue to monitor with follow-up after discharge 6. Thrombocytopenia, present on admission, stable - Ultrasound demonstrating heterogeneously increased echo texture suspicious for chronic liver disease such as hepatitis or cirrhosis to be followed as an outpatient - Recommend patient has outpatient follow-up regarding this issue - Continue to monitor with follow-up after discharge 7. COPD with Chronic respiratory failure, stable - Serial Xray Imaging shows a 1. Persistent right upper lobe airspace opacity. may follow as outpatient - No evidence of acute exacerbation without any coughing or sputum changes - Able to discontinue oxygen supplementation (2 L) - no indications for steroids or antibiotics - duonebs QIDWA to be discontinued after discharge -Patient to return to normal outpatient inhalers 8 Chronic Atrial fibrillation, present on admission stable - monitor on telemetry, ok off for showers - continue outpatient Metoprolol for rate control 9 Diabetes mellitus Type 2, present on admission stable - low correction Lispro algorithm - holding Metformin - continuing Lantus 04/15, will start below regular outpatient dosing given he takes this medication PRN 10 Gout, chronic, present on admission stable - restart home allopurinol - holding cholchicine 11. 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 Exam Vital Signs (Last) Date Time Temp Pulse Resp B/P Pulse Ox O2 Delivery O2 Flow Rate FiO2 04/17/16 12:30 36.6 77 20 126/71 98 Nasal Cannula 2.50 04/16/16 03:08 95 Exam General: Alert, Oriented X3, Cooperative, No acute Distress Eyes: PERRLA, Scleral Anicteric Mouth: Mouth Normal, Mucous Membranes Moist/[place] Neck: Supple, no Thyromegaly, trachea central, patient has JVD right sided > left Chest & Lungs: improved breathe sounds globally with crackles in the lower lung gallo into the bases bilaterally and no wheezing or rhonchi Cardiovascular: Normal S1, Normal S2, No Rubs/Gallops, irregularly irregular Pulses: Radial (present and equal), Dorsalis Pedi (present and equal) Abdomen: Soft, Non-tender, Non-distended, Normoactive bowel tones. Musculoskeletal: Unremarkable. Normal range of motion, erythematous joints Extremities: +2 pitting edema up to mid tibia, no cyanosis, no clubbing. Venous stasis changes circumferentially around the distal lower extremity Skin: No rashes. Warm and dry, no erythematous areas. Neurological: Grossly neurologically intact, Normal Speech, Sensation Intact Lymphatic: Lymph nodes Cervical and Axillary not palpable. : no santana in place Test 04/13/16 15:00 04/13/16 17:45 04/14/16 02:40 04/15/16 03:05 Thyroid Stimulating Hormone (TSH) 4.810uIU/mL (0.450-4.500) Hold Davis Top Tube Received (Received) Urine Color Yellow (YELLOW) Urine Appearance Cloudy (CLEAR,HAZY) Urine pH 7.0 (5.0-8.0) Urine Specific [place] 1.010 (1.003-1.035) Urine Protein Negativemg/dL (NEG,TRACE) Urine Glucose (UA) Negativemg/dL (NEGATIVE) Urine Ketones Negativemg/dL (NEGATIVE) Urine Occult Blood Moderate (NEGATIVE) Urine Nitrite Negative (NEGATIVE) Urine Bilirubin Negative (NEGATIVE) Urine Urobilinogen Normalmg/dL (NORMAL) Urine Leukocyte Esterase Large (NEGATIVE) Urine RBC 3-10/hpf (0-2) Urine WBC >50/hpf (0-5) Urine Epithelial Cells Few/hpf (NONE-MOD) Urine Crystals None seen (NONE SEEN) Urine Bacteria Few/hpf (NONE-FEW) Urine Hyaline Casts None/lpf (NONE) Urine Granular Casts None seen (NONE SEEN) Urine Waxy Casts None seen (NONE SEEN) Urine Red Blood Cell Casts None seen (NONE SEEN) Urine White Blood Cell Casts None seen (NONE SEEN) Urine Mucus None seen (None Seen) Urine Trichomonas None seen (NONE SEEN) Urine Yeast None (NONE SEEN) Urinalysis Comment None Urine Culture Reflexed Indicated Urine Random Creatinine 44mg/dL (22-328) Urine Random Sodium 24mEq/L Urine Urea Nitrogen 457mg/dL (Not Estab.) Prostate Specific Antigen 5.4ng/mL (0.0-4.0) Prothrombin Time 12.4sec (8.1-12.5) Prothromb Time International Ratio 1.16ratio Lactic Acid Level 1.1mmol/L (0.4-2.0) Troponin T 0.076ug/L (0.0-0.011) Triglycerides Level 54mg/dL (0-149) Cholesterol Level 119mg/dL (100-199) LDL Cholesterol, Calculated 54.200mg/dL (0-99) VLDL Cholesterol 10.800mg/dL HDL Cholesterol 54mg/dL (>39) Cholesterol/HDL Ratio 2.20 (0.0-4.4) Procalcitonin 0.11ng/mL (0.00-0.08) Test 04/16/16 07:10 04/17/16 02:40 Phosphorus Level 3.7mg/dL (2.5-4.9) White Blood Count 5.8th/mm3 (3.8-10.1) Red Blood Count 3.24mil/mm3 (4.40-5.80) Hemoglobin 8.6g/dL (13.8-17.2) Hematocrit 28.8% (41.0-50.0) Mean Corpuscular Volume 88.9fL (81-100) Mean Corpuscular Hemoglobin 26.5pg (27.0-35.0) Mean Corpuscular Hemoglobin Concent 29.9% (32.0-37.0) Red Cell Distribution Width 18.2% (12.3-15.4) Platelet Count 123bil/L (150-400) Neutrophils (%) (Auto) 66.7% (40-74) Lymphocytes (%) (Auto) 18.3% (14-46) Monocytes (%) (Auto) 11.0% (4-12) Eosinophils (%) (Auto) 3.3% (0-5) Basophils (%) (Auto) 0.5% (0-3) Erythrocyte Sedimentation Rate 19mm/hr (0-30) Sodium Level 138mEq/L (134-144) Potassium Level 3.4mEq/L (3.5-5.2) Chloride Level 93mEq/L (97-108) Carbon Dioxide Level 28mmol/L (18-29) Blood Urea Nitrogen 85mg/dL (8-27) Creatinine 2.35mg/dL (0.76-1.27) Estimat Glomerular Filtration Rate 28mL/min (>59) Glucose Level 154mg/dL (60-99) Calcium Level 9.0mg/dL (8.5-10.1) Magnesium Level 2.6mg/dL (1.6-2.6) Total Bilirubin 1.0mg/dL (0.0-1.2) Aspartate Amino Transf (AST/SGOT) 23U/L (0-50) Alanine Aminotransferase (ALT/SGPT) 15U/L (0-44) Alkaline Phosphatase 96U/L (25-160) C-Reactive Protein 0.5mg/dL (0.0-0.5) Pro-B-Type Natriuretic Peptide 5029pg/mL (0-486) Total Protein 6.3g/dL (6.4-8.4) Albumin 4.1g/dL (3.4-5.0) Microbiology Results Microbiology [place] CULT URINE Final 04/15/16 Organism 1 ENTEROCOCCUS SPECIES U COLONY COUNT/QUANTITY >100,000 CFU/ml 1. ENTEROCOCCUS SPECIES M.I.C Interp --------- ------ * CIPROFLOXACIN <=0.5 S * LEVOFLOXACIN 0.5 S * NITROFURANTOIN <=16 S * PENICILLIN-G 2 S * TETRACYCLINE <=1 S * VANCOMYCIN 1 S Discharge Medications Discharge Medications Allopurinol (Allopurinol) 100 Mg Tablet 100 MG PO HS (Reported) Amoxicillin (Amoxicillin) 500 Mg Tablet 500 MG PO BID Prescribed by: VIRGIL DESAI DO Arformoterol Tartrate (Brovana) 15 Mcg/2 Ml Vial.neb 15 MCG IH BID (Reported) Ascorbic Acid (Vitamin C) 500 Mg Capsule.er 500 MG PO DAILY (Reported) Aspirin (Aspirin) 81 Mg Tablet 81 MG PO DAILY (Reported) Atorvastatin Calcium (Atorvastatin Calcium) 20 Mg Tablet 20 MG PO HS (Reported) Brimonidine Tartrate (Brimonidine 0.2% Oph Soln) 5 Ml Drops 1 GTT LEFT_EYE TID ( Reported) Cyanocobalamin (Vitamin B-12) (Vitamin B-12) 50 Mcg Tablet 100 MCG PO DAILY ( Reported) Dorzolamide (Dorzolamide) 10 Ml Drops 1 GTT BOTH_EYES BID (Reported) Fluticasone Propionate (Flovent HFA 220 mcg) 12 Gm Aer.w.adap 1 PUFF IH BID ( Reported) Fosinopril Sodium (Fosinopril Sodium) 20 Mg Tablet 10 MG PO DAILY (Reported) Latanoprost (Latanoprost) 2.5 Ml Drops 1 GTT BOTH_EYES HS (Reported) Metformin ER (Metformin ER) 500 Mg Tablet 500 MG PO BID (Reported) Metoprolol Succinate ER (Toprol XL) 25 Mg Tablet 25 MG PO DAILY (Reported) Multivitamin (Multivitamins) 1 Each Capsule 1 EACH PO DAILY (Reported) Nitroglycerin 0.2 mg/hr Patch (Nitroglycerin 0.2 mg/hr Patch) 1 Each Patch 0.2 MG TRANSDERM on at hs, off in am (Reported) Potassium Chloride (Potassium Chloride) 10 Meq Tab.er.prt 20 MEQ PO DAILY TAKE WITH FOOD Prescribed by: VIRGIL DESAI DO Saccharomyces Boulardii (Florastor) 250 Mg Capsule 250 MG PO DAILYWM Prescribed by: VIRGIL DESAI DO Terazosin (Terazosin) 10 Mg Capsule 10 MG PO HS (Reported) Torsemide (Demadex) 20 Mg Tablet 40 MG PO 15 Prescribed by: VIRGIL DESAI DO As needed Colchicine (Colchicine) 0.6 Mg Capsule 0.6 MG PO DAILY PRN PRN gout (Reported) Insulin Glargine (Lantus U100 Solostar Insulin Pen) 100 Unit/1 Ml Insuln.pen 12 UNIT SUBQ DAILY PRN PRN blood sugar >150 (Reported) Ipratropium [place] (Ipratropium [place] Inhalant Solution) 0.2 Mg/1 Ml Solution 2.5 ML IH BID PRN PRN For Shortness of Breath (Reported) Levalbuterol HCl (Xopenex Concentrate) 1.25 Mg/0.5 Ml Vial.neb 1.25 MG IH BID PRN PRN For Shortness of Breath (Reported) Lidocaine (Lidoderm) 700 Mg Adh..patch 1 PATCH TP DAILY PRN PRN For Pain ( Reported) Additional med instructions Please finish the amoxicillin antibiotic course the you have been prescribed for your urinary tract infection. Also prescribed is a probiotic to replace the good bacteria in your got will be killed off by the amoxicillin please finish the course of probiotic. Follow the torsemide dosing described below and the patient instructions. Your regular dosing of the water pill is torsemide 40 mg taken at 8 AM and 3 PM. If you weigh more than 2 pounds from the day prior to take an extra 40 mg torsemide at 8 AM for a total of 80 mg at 8 AM, as well as your regular 40mg at 3 PM dosing. You have also been prescribed potassium chloride 20 mEq to be taken with breakfast every day. If you require to take an additional 40 mg of torsemide in a day you should also increase her dose of potassium chloride 40 mEq. The remainder of your regular medications and remained intact. Followup Plan Disposition: home Follow-up plan Please follow up with you the [facility] residency clinic within the next week for evaluation of your health and medications checks as well as obtaining follow up blood work to confirm that your water pill and potassium replacement are effective. Your doctor at that time should also check your blood cells counts as you have low red blood cell counts. Labs your doctor should order next week include complete blood counts with differential and a comprehensive metabolic panel. Consideration for further imaging of the persistent right upper lobe opacity. Please followup with your regular PCP for evaluation of your overall health at your earliest convenience if possible, as it is understood that you are in the process of changing her PCP, please follow up. 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 Discharge Diet: Low fat, Low Sodium (CHF Low Salt diet ( 2 grams or less sodium /day)), Heart Healthy, Other (ideally less than 1.5L per day but based more off body weight) Discharge Activity: Limited until seen by PCP Patient Instructions 1. Your weight today is 190 lbs. you could stand to lose an additional 5 pounds of water weight. You scale may read differently than 190 pounds, but use your initial weight when you arrive home as your baseline weight. 2. Weigh yourself immediately when you get home and this will be her baseline weight then laid yourself every day in the morning after using the restroom and write it down. 3. Take your weight log to your doctor visits. 4. Your regular dosing of the water pill is torsemide 40 mg taken at 8 AM and 3 PM. If you weigh more than 2 pounds from the day prior to take an extra 40 mg torsemide at 8 AM for a total of 80 mg at 8 AM. 5. Call your doctor if you gain 5 pounds over 2 days. Follow-up Provider: [facility] Follow-up with PCP in: 1 week Provider: Jeanna Patel MD Follow-up in: 2 weeks Mid-level Provider: Tyron Alas PA-C Follow-up with Mid-level in: 3 weeks CHF Clinic: 2 weeks Time spent Greater than 30 minutes was spent in preparation of discharge with greater than 50% of that time dedicated to patient counseling and coordination of care. . Attending Statement The patient was seen and examined together with Dr. Desai on 04/17/2016 and I agree with the history, exam and plan as outlined in the note above. . copies to: Lam Duron MD; [facility] Virgil Desai DO Apr 17, 2016 19:51 Leland Noel MD Apr 18, 2016 15:18
--- NOTE | 2016-04-18 15:32 | NUR ---
CHF Discharge follow up phone call: Denied chest pain, shortness of breath or worsening edema to his lower legs. 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 He weighed himself this morning and he weighs 187 lbs on his home scale. Stated understanding on when to take an extra Torsemide dose. He has a follow up appointment coming up at the [facility]idency [facility] this month. CHF Clinic orders on discharge dictation. Patient prefers for us to contact Tyron RAO at Cardiology if she prefers to see him first in her office before we schedule his CHF clinic appointment. No further questions.
--- NOTE | 2016-04-20 13:20 | NUR ---
Tyron RAO called. The plan is she will see patient in office first before we schedule his CHF outpatient clinic appointment. She will contact patient to schedule his cardiology appointment with her.
== END 2016-04-17 15:00 | disposition home or self-care (01) | DRG 291 ==
LOC: PCC 14:22
PROVIDERS: ADMIT Hospitalist; ATTEND Hospitalist
DX: I50.23 Acute on chronic systolic (congestive) heart failure (principal); N17.0 Acute kidney failure with tubular necrosis; N39.0 Urinary tract infection, site not specified; J96.10 Chronic respiratory failure, unspecified whether with hypoxia or hypercapnia; N18.4 Chronic kidney disease, stage 4 (severe); I13.0 Hypertensive heart and chronic kidney disease with heart failure and stage 1 through stage 4 chronic kidney disease, or unspecified chronic kidney disease; Z87.891 Personal history of nicotine dependence; Z95.1 Presence of aortocoronary bypass graft; J44.9 Chronic obstructive pulmonary disease, unspecified; D63.1 Anemia in chronic kidney disease; R33.9 Retention of urine, unspecified; N40.0 Benign prostatic hyperplasia without lower urinary tract symptoms; Z91.81 History of falling; M10.9 Gout, unspecified; I25.10 Atherosclerotic heart disease of native coronary artery without angina pectoris; B95.2 Enterococcus as the cause of diseases classified elsewhere; E11.21 Type 2 diabetes mellitus with diabetic nephropathy; I48.2 Chronic atrial fibrillation; Z16.19 Resistance to other specified beta lactam antibiotics; Z79.4 Long term (current) use of insulin

== ENCOUNTER 2016-05-04 17:54 | Inpatient (IN) | payer MEDICARE, OTHER ==
[~2016-05-04] VITALS: Ht 182.9 cm; Wt 93.4 kg
[~2016-05-04 17:54] MED LIST changes: +AMOX500T2 PO; -FUR20 PO; -POTA20TA16 PO; +SACC250C PO; +TORS20TA PO; -TORS20TA3 PO
[2016-05-04 17:57] VITALS: BP 120/69; PULSE 87; RESP 20; O2SAT 95
--- NOTE | 2016-05-04 18:24 | ED.REPORT ---
HPI-Dyspnea / Wheezing Date of Service May 04, 2016 ED Provider: Lamonte Valerio DO Pt is an 86 y.o. male with a hx of CHF, DM, COPD, HTN, and A-fib who presents to the ED c/o bilateral leg swelling. Pt states that the swelling "goes all the way up to the scrotum". He also reports associated worsening SOB, abdominal pain , cough, orthopnea, dyspnea on exertion, and scrotal pain. He denies fever and chest pain. He reports taking baby ASA daily. Pt was recently hospitalized (04/13/16-04/17/16) for CHF exacerbation and renal insufficiency. Nursing Notes Stated Complaint: SOB/SWOLLEN LEGS Chief Complaint: General Complaint Nursing Notes Reviewed: Yes Allergies: Coded Allergies: No Known Allergies (Verified Allergy, Unknown, 05/04/16) Scheduled Allopurinol (Allopurinol) 100 Mg Tablet 100 MG PO QAM Arformoterol Tartrate (Brovana) 15 Mcg/2 Ml Vial.neb 15 MCG IH BID Ascorbic Acid (Vitamin C) 500 Mg Capsule.er 500 MG PO QAM Aspirin (Aspirin) 81 Mg Tablet 81 MG PO QAM Atorvastatin Calcium (Atorvastatin Calcium) 20 Mg Tablet 20 MG PO HS Brimonidine Tartrate (Brimonidine 0.2% Oph Soln) 5 Ml Drops 1 GTT LEFT_EYE TID Cider Vinegar (Apple Cider Vinegar) 600 Mg Capsule 600 MG PO DAILY Cyanocobalamin (Vitamin B-12) (Vitamin B-12) 50 Mcg Tablet 100 MCG PO DAILY Dorzolamide (Dorzolamide) 10 Ml Drops 1 GTT BOTH_EYES BID Fluticasone Propionate (Flovent HFA 220 mcg) 12 Gm Aer.w.adap 1 PUFF IH BID Fosinopril Sodium (Fosinopril Sodium) 20 Mg Tablet 10 MG PO HS Latanoprost (Latanoprost) 2.5 Ml Drops 1 GTT BOTH_EYES HS Metformin ER (Metformin ER) 500 Mg Tablet 500 MG PO QAM Metolazone (Metolazone) 5 Mg Tablet 5 MG PO DAILY Multivitamin (Multivitamins) 1 Each Capsule 1 EACH PO DAILY Nitroglycerin 0.2 mg/hr Patch (Nitroglycerin 0.2 mg/hr Patch) 1 Each Patch 0.2 MG TRANSDERM QPM APPLY AT 1900, OFF AT 7 AM Potassium Chloride (Potassium Chloride) 10 Meq Tab.er.prt 20 MEQ PO BIDWM TAKE WITH FOOD Terazosin (Terazosin) 10 Mg Capsule 10 MG PO HS Torsemide (Torsemide) 20 Mg Tablet 60 MG PO QAM AT 0800. TAKE TORSEMIDE 60 MG IN AM, 40 MG IN AFTERNOON Torsemide (Torsemide) 20 Mg Tablet 40 MG PO QPM AT 1500. TAKE TORSEMIDE 60 MG IN AM, 40 MG IN AFTERNOON. Scheduled PRN Insulin Glargine (Lantus U100 Solostar Insulin Pen) 100 Unit/1 Ml Insuln.pen 12 UNIT SUBQ QAM PRN PRN blood sugar >150 Levalbuterol HCl (Xopenex Concentrate) 1.25 Mg/0.5 Ml Vial.neb 1.25 MG IH BID PRN PRN For Shortness of Breath General Time Seen by MD: 18:14 Chief Complaint Other (Lower extremity swelling, bilateral) Hx Obtained From: Patient Arrived By: Walk-in Sudden in Onset?: Yes Symptom Duration: Since onset Recent Healthcare: Recent hospitalization Past Medical History Past Medical History Notes: PCP: Dr. Yoo Past Medical History Emphysema CHF Atrial fibrillation Reports: COPD, Coronary artery disease, Diabetes mellitus, Hypertension Past Surgical History Abdominal aneurysm Popliteal Cyst removal Reports: CABG Family History Noncontributory Smoking History Former Smoker Social History Alcohol Use: "Social" Drug Use: Denies drug use Other Social History: Lives alone, Local resident Ambulatory Status Independent Review of Systems Constitutional: Denies: Fever Respiratory: Reports: Non-productive cough, Shortness of breath Cardiovascular: Reports: Dyspnea on exertion, Orthopnea, Denies: Chest pain Musculoskeletal: Reports: Extremity swelling (bilateral lower extremities) Skin: Reports Swelling Complete sys rev & neg: except as marked. GI: Reports: Abdominal pain, Denies: Nausea, Vomiting Male: Reports Scrotal swelling, Reports Testicular pain Physical Exam Initial Vital Signs Vital Signs (First) Date Time Temp Pulse Resp B/P Pulse Ox O2 Delivery O2 Flow Rate FiO2 05/04/16 17:57 36.0 87 20 120/69 95 Room Air Initial VS: Reviewed Head / Eyes: Atraumatic, Normocephalic Extremities: Vascular intact, Neuro intact Skin: Warm, Dry, No cyanosis Neurologic: Alert, Oriented, Nonfocal Psychiatric: Mood/affect normal, Behavior normal, Normal thought content General/Constitutional: Awake, Alert, No acute distress, Not toxic appearing Neck: Atraumatic Neck Vascular: Positive: JVD severe (to angle of mandible) Respiratory / Chest: Atraumatic, No respiratory distress Crackles in right lung base 95% on RA Cardiovascular: Heart rate NL Heart Rate / Rhythm: Positive: Irreg irregular rhythm Lower Ext Edema: Positive: Anasarca, Pitting (bilateral) Upper Extremity / MS: No deformity, Neurologic intact, Vascular intact Trauma / Burn / Environmental: Positive: Ecchymosis (bilateral arms) Pt repoorts that he "bruises easily" Interpretation & Diagnostics Lab Results Interpretation Result Diagram: 05/04/16 1830 05/05/16 0603 Test 05/04/16 18:30 White Blood Count 5.8th/mm3 (3.8-10.1) Red Blood Count 3.20mil/mm3 (4.40-5.80) Hemoglobin 8.3g/dL (13.8-17.2) Hematocrit 28.5% (41.0-50.0) Mean Corpuscular Volume 89.1fL (81-100) Mean Corpuscular Hemoglobin 25.9pg (27.0-35.0) Mean Corpuscular Hemoglobin Concent 29.1% (32.0-37.0) Red Cell Distribution Width 18.7% (12.3-15.4) Platelet Count 128bil/L (150-400) Neutrophils (%) (Auto) 75.3% (40-74) Lymphocytes (%) (Auto) 13.5% (14-46) Monocytes (%) (Auto) 9.5% (4-12) Eosinophils (%) (Auto) 1.4% (0-5) Basophils (%) (Auto) 0.3% (0-3) Prothrombin Time 11.7sec (8.1-12.5) Prothromb Time International Ratio 1.09ratio Hemoglobin A1c 7.4% (4.8-5.6) Magnesium Level 2.8mg/dL (1.6-2.6) Total Bilirubin 1.1mg/dL (0.0-1.2) Aspartate Amino Transf (AST/SGOT) 35U/L (0-50) Alanine Aminotransferase (ALT/SGPT) 20U/L (0-44) Alkaline Phosphatase 110U/L (25-160) Total Protein 6.6g/dL (6.4-8.4) Albumin 4.0g/dL (3.4-5.0) Thyroid Stimulating Hormone (TSH) 5.270uIU/mL (0.450-4.500) Hold Davis Top Tube Received (Received) ECG Interpretation ECG Interpretation: Low voltage T-wave inversion in V5-V6 Time: 18:57 Interpreted by: ED physician Normal ECG Interpretation: Normal rate (81), No change from prior ECGs Rhythm / Conduction: Atrial fibrillation X-Ray Chest Interpretation Chest Xray Interpretation: IMPRESSION: Persistent right upper lobe opacity, unchanged.. Dictated by: Emily Donis M.D. on 05/04/2016 at 18:48 Approved by: Emily Donis M.D. on 05/04/2016 at 18:50 Re-Eval/Medical Decision Source of Hx: Old records Re-Evaluation/Progress : Time of Eval: 19:00 Re-Evaluation/Progress Note: Pt rechecked. Discussed need for admit, pt understands and agrees with plan. Consultation : Referral / Consult Name: Federico Joiner MD Call Returned at: 19:36 Residential Leasing Agent: Will see patient, Agrees with eval, Agrees with plan, Accepts admit Note: Discussed pt condition. Accepts admit. Counseled Regarding: Diagnosis, Lab results Discharge & Departure Impression: Primary Impression: CHF (congestive heart failure) Additional Impressions: Anasarca Acute renal insufficiency Disposition: ADMITTED TO HOSPITAL Discharge Condition All VS Reviewed: Yes Condition: Stable Referrals: Lam Duron MD (PCP) Khoa Attestation Portions of this note were transcribed by Geovanna Contreras. I, Dr. Valerio personally performed the history, physical exam and medical decision-making; I reviewed and confirmed the accuracy of the information in the transcribed note. Signed by : Khoa Polanco, 05/04/16 and 2056. copies to: Lam Duron MD, Todd P DO May 04, 2016 18:24 GEOVANNA CONTRERAS May 04, 2016 19:11 Re-Eval/Medical Decision Source of Hx: Old records Re-Evaluation/Progress : Time of Eval: 19:00 Re-Evaluation/Progress Note: Pt rechecked. Discussed need for admit, pt understands and agrees with plan. Consultation : Referral / Consult Name: Federico Joiner MD Call Returned at: 19:36 Residential Leasing Agent: Will see patient, Agrees with eval, Agrees with plan, Accepts admit Note: Discussed pt condition. Accepts admit. Counseled Regarding: Diagnosis, Lab results Discharge & Departure Impression: Primary Impression: CHF (congestive heart failure) Additional Impressions: Anasarca Acute renal insufficiency Disposition: ADMITTED TO HOSPITAL Discharge Condition All VS Reviewed: Yes Condition: Stable Referrals: Lam Duron MD (PCP) Khoa Attestation Portions of this note were transcribed by Geovanna Contreras. I, Dr. Valerio personally performed the history, physical exam and medical decision-making; I reviewed and confirmed the accuracy of the information in the transcribed note. Signed by : Khoa Polanco, 05/04/16 and 2056. copies to: Lam Duron MD, Todd P DO May 04, 2016 18:24 GEOVANNA CONTRERAS May 04, 2016 19:11
[2016-05-04 18:40] LABS: BASOPHILS % (AUTO) 0.3 % (0-3); EOSINOPHILS % (AUTO) 1.4 % (0-5); MONOCYTES % (AUTO) 9.5 % (4-12); Mean Corpuscular Hemoglobin 25.9 pg (27.0-35.0); Mean Corpuscular Volume 89.1 fL (81-100); NEUTROPHILS % (AUTO) 75.3 % (40-74); Platelet Count 128 bil/L (150-400)
--- NOTE | 2016-05-04 18:51 | DRSVH ---
PROCEDURE: X-RAY CHEST ONE VIEW, PORTABLE ([id number]) INDICATIONS: chf, maldonado TECHNIQUE: One view of the chest was acquired. COMPARISON: [facility], CR, XR CHEST 1VW (PORTABLE), 04/16/2016, 6:42. FINDINGS: Surgical changes and devices: Sternal wires are unchanged. Lungs and pleura: There is persistent opacity within the right upper lobe. Mediastinum: Mediastinal contours appear normal. Heart size is normal. Bones and chest wall: No suspicious bony lesions. Overlying soft tissues appear unremarkable. Old rib fractures are again noted. IMPRESSION: Persistent right upper lobe opacity, unchanged.. Dictated by: Emily Donis M.D. on 05/04/2016 at 18:48 Approved by: Emily Donis M.D. on 05/04/2016 at 18:50
[2016-05-04 18:58] LABS: INR 1.09 ratio
[2016-05-04 19:09] LABS: Magnesium 2.8 mg/dL (1.6-2.6)
[2016-05-04 19:13] LABS: TROPONIN T 0.093 ug/L (0.0-0.011)
[2016-05-04] MEDS ORDERED: Polyethylene Glycol (PEG) 17 Gm Powder PO PRN (19:40)
[2016-05-04] MEDS ORDERED: Furosemide 10 mg/mL 10 mL Inj IVPUSH ONE (19:40)
[2016-05-04] MEDS ORDERED: Ondansetron 2 mg/mL 2 mL Inj IVPUSH PRN (19:40)
[2016-05-04] MEDS ORDERED: Alum-Mag Hydrox-Simeth 30 mL Suspension PO PRN (19:40)
[2016-05-04] MEDS ORDERED: Glucose 40% Oral Gel 15 Gm Tube PO PRN (19:55)
[2016-05-04] MEDS ORDERED: POTA10TA38 PO (20:02)
[2016-05-04] MEDS ORDERED: TORS20TA3 PO ×2 (20:02)
[2016-05-04] MEDS ORDERED: METO5TAB5 PO (20:07)
[2016-05-04] MEDS ORDERED: CIDE600C PO (20:08)
[2016-05-04 20:26] VITALS: BP 125/60; PULSE 81; RESP 17; O2SAT 97
[2016-05-04] MEDS ORDERED: Furosemide 10 mg/mL 4 mL Inj IVPUSH SCH (20:30)
[2016-05-04 20:57] VITALS: PULSE 84
[2016-05-04 21:00] VITALS: BP 122/70; PULSE 72; RESP 20; O2SAT 99
[2016-05-04] MEDS: Insulin LISPRO 300 Unit/3 mL Inj SUBQ SCH (21:16)
[2016-05-04] MEDS: Sodium Chloride LOK Flush 10 mL Syringe IVFLUSH SCH (21:17)
--- NOTE | 2016-05-04 22:01 | PCM.HPMED ---
Subjective Date of Service May 04, 2016 Primary Provider: Admitting Physician: Primary Care Physician: Lam Duron MD Attending Physician: Admit Status: From the Emergency Department, Full Admit, [facility] Telemetry Chief Complaint: Leg swelling and shortness of breathe History of Present Illness: Jerry Jones is a 86 yo with Chronic systolic heart failure with recent exacerbation, Chronic Atrial fibrillation, Pulmonary hypertension and Coronary artery disease who presents to [facility] emergency department due to increasing dyspnea on exertion as well as increasing leg swelling Patient has noticed increasing leg swelling as well as scrotal swelling in the last few days. He followed instructions to titrate up the dose of his Torsemide but did not see any improvement. He has also noticed dyspnea on exertion with Orthopnea. He denies any coughing, fever or chills. Denies any urinary symptoms such as dysuria or frequency. He denies any chest pain. He is compliant with medications and dietary restrictions. He has multiple organ dysfunction including renal failure, cirrhosis, Chronic heart failure with poor EF and Pulmonary hypertension. Still lives independently and able to perform activity of daily living. Patient was treated for Urinary tract infections and completes antibiotics. Recent follow up with Dr Patel (Urology) everything stable from their perspective Case discussed with Dr Valerio, diuretics initiated wit plans to admit for further management Review of Systems: Pertinent positives as noted in HPI. All other systems were reviewed and are negative Allergies Coded Allergies: No Known Allergies (Verified Allergy, Unknown, 05/04/16) Home Medications From Jerry Renner [phone] [id number] 04/30/2016 10:00 AM Page: 02/13 allopurinol 100 mg tablet take 1 tablet by oral route once daily to prevent gout attack Aspirin Low Dose 81 mg tablet,delayed release take 1 tablet by oral route every day atorvastatin 20 mg tablet take 1 tablet by oral route every day brimonidine 0.2 % eye drops instill 1 drop by ophthalmic route every 8 hours into affected eye(s) Brovana 15 mcg/2 mL solution for nebulization inhale 2 milliliter by inhalation route 2 times every day dorzolamide 2 % eye drops instill as directed by physician for glaucoma Florastor 250 mg capsule fosinopril 20 mg tablet take 1/2 Tablet by oral route every day in the PM for high blood pressure. Lantus 100 unit/mL subcutaneous solution inject by subcutaneous route as per insulin protocol latanoprost 0.005 % eye drops instill as needed as directed by physician for glaucoma metformin 500 mg tablet take 1 tablet by oral route 2 times every day with morning and evening meals metoprolol succinate ER 25 mg tablet,extended release 24 hr take 1 Tablet by oral route every day for heart Multivitamin 50 Plus tablet Nitro-Dur 0.4 mg/hr transdermal 24 hour patch apply 1 patch by transdermal route placed at bedtime to wear for 12 hours potassium chloride ER 10 mEq tablet,extended release take 1 tablet daily; with extra dose of Torsemide take 2 tab daily terazosin 10 mg capsule take 1 capsule by oral route every day at bedtime torsemide 20 mg tablet 2 tab in am and 2 tab in pm; if you gain weight, take 4 tab in am and 2 tab pm Vitamin C oral powder PMH Pulmonary hypertension Chronic A. fib Hypertension Hyperlipidemia Diabetes Type 2 Chronic Kidney disease COPD Glaucoma Diabetes mellitus Emphysema Subdural hematoma-divya holes by [facility], off anticoagulation AAA repair at [place] Hepatic cirrhosis with anasarca BPH Coronary artery disease s/p 5 vessel CABG 1982 with redo bypass 1992 Ischemic Cardiomyopathy EF 40-45% Mild to Moderate MR . Surgical History Cholecystectomy CABG with redo Family History Father had OR age 54 Mother had Stroke Social History Hx Alcohol Use: No Hx Substance Use: No Hx Tobacco Use: Yes Smoking Status: Former Smoker Exam Vital Signs Vital Sign - Last Date Time Temp Pulse Resp B/P Pulse Ox O2 Delivery O2 Flow Rate FiO2 05/04/16 17:57 36.0 87 20 120/69 95 Room Air Exam General: Alert, Oriented X3, Cooperative, No acute Distress Eyes: PERRLA, Scleral Anicteric Mouth: Mouth Normal, Mucous Membranes Moist/[place] Neck: Supple, no Thyromegaly, trachea central. Chest & Lungs: decreased breathe sounds at bases healed CABG scar on mid chest Cardiovascular: Normal S1, Normal S2, No Rubs/Gallops, irregularly irregular, ( elevated JVD, 3+ peripheral edema) Pulses: Radial (present and equal), Dorsalis Pedi (present and equal) Abdomen: Soft, Non-tender, Non-distended, Normoactive bowel tones. Musculoskeletal: Unremarkable. Normal range of motion, no swollen or erythematous joints Extremities: 3+ pitting edema, no cyanosis, no clubbing. Skin: No rashes. Warm and dry, no erythematous areas. Venous stasis changes. swelling around the penile foreskin Neurological: Grossly neurologically intact, has generalized weakness, Normal Speech, Sensation Intact Lymphatic: Lymph nodes Cervical and Axillary not palpable. Lab and Diagnostics Labs Laboratory Tests Test 05/04/16 18:30 White Blood Count 5.8th/mm3 (3.8-10.1) Red Blood Count 3.20mil/mm3 (4.40-5.80) Hemoglobin 8.3g/dL (13.8-17.2) Hematocrit 28.5% (41.0-50.0) Mean Corpuscular Volume 89.1fL (81-100) Mean Corpuscular Hemoglobin 25.9pg (27.0-35.0) Mean Corpuscular Hemoglobin Concent 29.1% (32.0-37.0) Red Cell Distribution Width 18.7% (12.3-15.4) Platelet Count 128bil/L (150-400) Neutrophils (%) (Auto) 75.3% (40-74) Lymphocytes (%) (Auto) 13.5% (14-46) Monocytes (%) (Auto) 9.5% (4-12) Eosinophils (%) (Auto) 1.4% (0-5) Basophils (%) (Auto) 0.3% (0-3) Prothrombin Time 11.7sec (8.1-12.5) Prothromb Time International Ratio 1.09ratio Sodium Level 136mEq/L (134-144) Potassium Level 4.5mEq/L (3.5-5.2) Chloride Level 96mEq/L (97-108) Carbon Dioxide Level 20mmol/L (18-29) Blood Urea Nitrogen 89mg/dL (8-27) Creatinine 3.16mg/dL (0.76-1.27) Estimat Glomerular Filtration Rate 20mL/min (>59) Glucose Level 187mg/dL (60-99) Calcium Level 9.4mg/dL (8.5-10.1) Magnesium Level 2.8mg/dL (1.6-2.6) Total Bilirubin 1.1mg/dL (0.0-1.2) Aspartate Amino Transf (AST/SGOT) 35U/L (0-50) Alanine Aminotransferase (ALT/SGPT) 20U/L (0-44) Alkaline Phosphatase 110U/L (25-160) Troponin T 0.093ug/L (0.0-0.011) Pro-B-Type Natriuretic Peptide 4996pg/mL (0-486) Total Protein 6.6g/dL (6.4-8.4) Albumin 4.0g/dL (3.4-5.0) Hold Davis Top Tube Received (Received) Result Diagram: 05/04/16 1830 05/04/16 1830 X-Rays, CTs and MRIs X-RAY CHEST ONE VIEW, PORTABLE 05/04 IMPRESSION: Persistent right upper lobe opacity, unchanged.. Dictated by: Emliy Donis M.D. on 05/04/2016 at 18:48 Approved by: Emily Donis M.D. on 05/04/2016 at 18:50 Assessment & Plan Jerry Jones is a 86 yo with Chronic systolic heart failure with recent exacerbation, Chronic Atrial fibrillation, Pulmonary hypertension and Coronary artery disease who presents to [facility] emergency department due to increasing dyspnea on exertion as well as increasing leg swelling 1. Acute on Chronic systolic Heart failure. Present on admission Trigger unclear but may be due to inadequate diuretic dosing due to worsening renal function. Consider underlying ischemic heart disease. Differential diagnosis includes increasing Anasarca due to portal hypertension and cirrhosis , Hypothyroid disease - monitor on telemetry - checking TSH - diuretic therapy with Lasix 80 mg IV bid, titrate to weight and urine output - Cardiology will be consulted tomorrow - recommend Cardiology input concerning prognosis and consider Hospice 2. 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 Present on admission Likely pre renal due to decreased renal perfusion due to poor cardiac output. Chronic disease related to Hypertensive Nephrosclerosis and Diabetic Nephropathy. - avoid nephrotoxic insults - monitor urine output - Nephrology Dr Banks had seen patient during last admission 3. Anasarca secondary to tricuspid regurgitation, pulmonary hypertension, and cirrhosis. Present on admission - Albumin normal doubting if giving Albumin infusion will be of any benefit - continuing diuretics 4 Chronic anemia likely secondary to chronic kidney disease - No clinical evidence of GI bleeding - consider transfusion if Hgb < 8 given cardiac disease - may need outpatient colonoscopy to workup cause of anemia 5. Cirrhosis with Thrombocytopenia, present on admission -Ultrasound demonstrating heterogeneously increased echo texture suspicious for chronic liver disease such as hepatitis or cirrhosis - he reported having a biopsy that showed cirrhosis with prior history of consistent alcohol intake in the past 6 COPD with Chronic respiratory failure No evidence of acute exacerbation without any coughing or sputum changes - continue oxygen supplementation (2 L) - no indications for steroids or antibiotics 7 Chronic Atrial fibrillation rate controlled currently but patient stopped his Metoprolol recently on his own due to low BP at home - monitor on telemetry - resume Metoprolol for rate control 8 Diabetes mellitus Type 2 - low correction Lispro algorithm - holding Metformin - continuing Lantus (will determine outpatient dose) - Acetaminophen as needed for mild pain/fever/headache - Bowel regimen as needed - Antiemetic as needed Patient admitted under inpatient status with expected length of stay > 2 midnights for severity of present symptoms, complexities of treatment plan and risk for adverse event . Resuscitation Status: DNR/DNI:Do Not Resuscitate/Intubate Federico Joiner MD May 04, 2016 19:50
--- NOTE | 2016-05-04 22:10 | PCM.ADCARE ---
Advance Care Planning Note Purpose of Encounter: Active Diagnosis. Chronic systolic heart failure Cirrhosis with anasarca and thrombocytopenia Chronic Pulmonary Hypertension Acute on Chronic Kidney disease These active diagnoses are sufficient risk that focused discussion on advance car planning is indicated in order to allow the patient to thoughtfully consider personal goals of care and if situations arise that prevent the ability to personally give input to insure appropriate representation of their personal desires through documentation or informed surrogate decision makers Parties in Attendance: Patient, Nephew and me Decisional Capacity: Good Plan: I reviewed in details the prognosis and lack for good treatment for his chronic heart failure, Acute on chronic renal failure, Cirrhosis with anasarca and his desires for ongoing aggressive care, including potential intubation and mechanical ventilation as well as CPR. He mentioned Cardiology Dr Poe had discuss his goals of having a happy life but understands he will eventually from his multiple disease Also discussed who would speak on her behalf should he be unable to do so, she states his brother: Elijah Jones will be his proxy. He understands her conditions for both her lung and heart disease carry poor prognosis with no good treatment options available and wishes to be DO NOT RESUSCITATE and DO NOT INTUBATE. Previously the patient was a Full Code. CODE STATUS: DNR/DNI Time Spent Adv.Care Planning: Total time spent [id number] in education and discussion directly related to Advance Care Plannin minutes Federico Joiner MD May 04, 2016 22:10
[2016-05-04] MEDS: Heparin 5,000 Unit/mL Inj SUBQ SCH (23:57)
[2016-05-05] VITALS (8 sets, daily range): BP systolic 101–130; BP diastolic 57–80; PULSE 72–81; RESP 18–22; O2SAT 96–100
[2016-05-05 02:44] LABS: APPEARANCE,URINE CLEAR (CLEAR,HAZY); COLOR,URINE YELLOW (YELLOW); PH,URINE 5.5 (5.0-8.0)
[2016-05-05 02:45] LABS: OCCULT BLOOD,URINE NEGATIVE (NEGATIVE); UROBILINOGEN,URINE NORMAL (NORMAL)
[2016-05-05] MEDS ORDERED: Furosemide 10 mg/mL 4 mL Inj IVPUSH SCH (06:00)
--- NOTE | 2016-05-05 06:16 | NUR ---
Admit Pt arrived to [facility] room 2029 at approx. 2044 from ED via bed; report received from Derek Navarro RN. All belongings transferred with pt; valuables placed in safe. Pt on 4L NC; weaned to 2L NC with SPO2 approx. 99%. Pt denies pain. Admit documentation and med rec completed in ED by admit RN. Pt denied information on CHF. AOx3, able to BERNSTEIN; SBA in room. VSS. Tele SR 70s. Addendum: 05/05/16 at 0626 by HUNTER SCOTT RN Correction: Tele afib 70s.
[2016-05-05 07:28] LABS: TROPONIN T 0.091 ug/L (0.0-0.011)
[2016-05-05] MEDS: Insulin LISPRO 300 Unit/3 mL Inj SUBQ SCH ×4 (08:00→21:40)
[2016-05-05] MEDS: Heparin 5,000 Unit/mL Inj SUBQ SCH ×3 (08:30→17:44)
[2016-05-05] MEDS: Sodium Chloride LOK Flush 10 mL Syringe IVFLUSH SCH ×2 (08:56→16:30)
--- NOTE | 2016-05-05 11:13 | NUR ---
Palliative Care Palliative Care received verbal order from Dr Candace Wallace 05/04/16 to assist with goals of care. Patient is an 86 year old man with chronic systolic heart failure with recent exacerbation, chronic afib, pulmonary hypertension and coronary artery disease. He was admitted 05/04/16 due to increasing dyspnea on exertion and increasing leg swelling. Elijah Jones (brother) [phone] Palliative Care to follow. Elizabeth Duggan
--- NOTE | 2016-05-05 13:45 | PCM.CONPAL ---
Date of Service May 05, 2016 Date of Hospital Admission: May 04, 2016 at 20:03 Date of Palliative Consult: May 05, 2016 Requesting Provider: Sp Wallace MD Reason Palliative Care Consult: Goals of Care Discussion Reason for Consultation Palliative Care received verbal order from Dr Cadnace Wallace 05/04/16 to assist with goals of care. Patient is an 86 year old man with chronic systolic heart failure with recent exacerbation, chronic afib, pulmonary hypertension and coronary artery disease. He was admitted 05/04/16 due to increasing dyspnea on exertion and increasing leg swelling. Elijah Jones (brother) [phone] Palliative Care Recommendation Summary of palliative recommendations: Symptom management (Pain/other): per Attending DPOA/Advanced Directives/POLST: 1. Code status: DNR/DNI. Discussed with Dr. Cameron and patient's decision. 2. POA: no paperwork, however patient designated his brother as his surrogate decision maker: Elijah Jones (brother) [phone]. Elijah is in room, he is the youngest of 4 brothers (only Elijah and Jerry are still living) . Elijah and his Mei live in [place]. Elijah plans to return tomorrow to visit his brother. 3. POLST: no prior paperwork. -Family/emotional support: from brother and his brother's Pt's background and functional status at baseline: 1. 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 a [place] and had 2 children, a daughter hospitalized in a mental institution in [place] (ill 2/2 drugs) and a son Govind in [place] who he speaks to on the phone daily. He had a 2nd /nutter up(?), but they parted company (not sure if , but they have no contact and he doesn't know where she is ). 2. He has been living independently at home, drives, does his own grocery shopping and meal preparation. Doesn't want any VA helpers to come in and look after him, wants to continue to be independent. He gave coherent details about every aspect of his day. He takes two long naps daily: morning and afternoon. He doesn't go out to restaurants because he stays on a low salt, low fat diet. 05/05 Family Conference: Dr. Meyer met with patient and brother Elijah today and initiated discussion about Jerry's chronic illnesses and how he may need more help in the future. Jerry isn't buying it. He will an independent man in his own house in [facility]. Jerry will happily discuss his life and memories , and is willing to have his brother make decisions ("but only if I am too sick or unconscious") for him. CM worker arrived near end of discussion and will potato picker more information on Jerry's VA status and how that might help in future, if Jerry can be persuaded to accept VA nurses or [employer] OPERATOR visits. He is not interested in trying to imagine (or plan for) a future where he might need more help. Elijah says that Jerry is aware of CXR with RUL possible mass, heard about it from a doctor at another hospital. Jerry refused work up at that time. Spiritual support: not addressed today. Patient Goals: TBA Palliative Care will make pt and family contact tomorrow. Additional Medical Diagnoses with primary management by Hospitalist team include : Prior Issues on April 17 Discharge Summary were: 1. Acute on Chronic systolic Heart failure. Present on admission, - Trigger unclear but may be due to inadequate diuretic dosing due to worsening renal function. Consider underlying ischemic heart disease. Possible the urine infection may be causing cardiac stress. Differential diagnosis includes increasing Anasarca due to portal hypertension and cirrhosis, Hypothyroid disease - TSH mildly elevated consistent with hypothyroidism patient will follow with primary care physician - diuretic therapy with Lasix 80 mg IV bid discontinued and Torsemide 40mg BID and metolazone 5mg daily, titrate to weight and urine output - Cardiology consult requested by admitting doctor, no recommendations given - Patient to be discharged with torsemide 40 mg twice a day with instructions to increase morning dose to 80 mg based off of body weight, with KCL 20mEq daily and increased to 40mEq with increased torsemide dose 2. 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 Present on admission - Likely pre renal due to decreased renal perfusion due to poor cardiac output. Chronic disease related to Hypertensive Nephrosclerosis and Diabetic Nephropathy. - Nephrology consulted with recs to include Metolazone 5mg daily as well as Torsemide 40mg twice daily - FENA calculates to 1.5% however given torsemide this is not an accurate diagnostic evaluation consider fractional excretion of urea - Fractional excretion of urea calculates to 36 % which is in the in the indeterminate range - ultrasound imaging shows 74 mL post void residual in the urinary bladder with 1.9 x 2.1 x 2.7 cm hyperechoic mass at the base of the urinary bladder likely prostate however cannot rule out bladder mass - Patient will be seen in follow-up with urology as an outpatient 3. Urinary tract infection secondary to urinary retention from benign prostatic hypertrophy, Present on admission, under evaluation - Consider underlying prostate pathology including likely benign prostate hypertrophy versus prostate cancer versus prostate infection given 74 mL post void residual in the urinary bladder with 1.9 x 2.1 x 2.7 cm hyperechoic mass at the base of the urinary bladder likely prostate however cannot rule out bladder mass - Blood cultures x 2 - continued urinary retention followed by Dr. Patel of urology on terazosin outpatient, admitting physician has started tamsulosin 0.4mg daily - Culture and sensitivity showed Enterococcus with resistance to Ceftriaxone IV - Initially Ceftriaxone IV converted to Doxycycline PO, which was discontinued in favor of Amoxicillin 500mg BID will treat for minimum of 7 days given complicated UTI - Patient will follow up with urology for evaluation after discharge 4. Anasarca secondary to tricuspid regurgitation, pulmonary hypertension, and renal insufficiency. Present on admission, under evaluation - Nephrology consulted with recs to include Metolazone 5mg daily as well as Torsemide 40mg twice daily 5. Chronic anemia likely secondary to chronic kidney disease, stable - No clinical evidence of GI bleeding - Continue to monitor with follow-up after discharge 6. Thrombocytopenia, present on admission, stable - Ultrasound demonstrating heterogeneously increased echo texture suspicious for chronic liver disease such as hepatitis or cirrhosis to be followed as an outpatient - Recommend patient has outpatient follow-up regarding this issue - Continue to monitor with follow-up after discharge 7. COPD with Chronic respiratory failure, stable - Serial Xray Imaging shows a 1. Persistent right upper lobe airspace opacity. may follow as outpatient - No evidence of acute exacerbation without any coughing or sputum changes - Able to discontinue oxygen supplementation (2 L) - no indications for steroids or antibiotics - duonebs QIDWA to be discontinued after discharge -Patient to return to normal outpatient inhalers 8 Chronic Atrial fibrillation, present on admission stable - monitor on telemetry, ok off for showers - continue outpatient Metoprolol for rate control 9 Diabetes mellitus Type 2, present on admission stable - low correction Lispro algorithm - holding Metformin - continuing Lantus 04/15, will start below regular outpatient dosing given he takes this medication PRN 10 Gout, chronic, present on admission stable - restart home allopurinol - holding cholchicine 11. Coronary artery disease with history of multiple bypass grafts, chronic, present on admission stable - cardiology consulted by admitting physician, appreciate recommendations and time - elevated troponin trended and considered likely secondary to chronic kidney disease given no chest pain without EKG changes - restart home statin medication - Metoprolol ER for rate control 12 History of falls, present on admission, stable - obtained records from [facility] about neurosurgical intervention requiring cranial divya holes - patient had subdural hematomas in 2014 requiring dviya holes without further complication - Acetaminophen as needed for mild pain/fever/headache - Bowel regimen as needed - Antiemetic as needed disposition: patient will be discharged in the today with follow up as [facility] residency clinic for further evaluation with labs Problems: Resuscitation Status Resuscitation Status: DNR/DNI:Do Not Resuscitate/Intubate POLST Updates/Changes Previous POLST?: No Pt History History of Present Illness Jerry Jones is a 86 yo with Chronic systolic heart failure (low EF) with recent exacerbation, Chronic Atrial fibrillation, Pulmonary hypertension and Coronary artery disease who presents to [facility] emergency department due to increasing dyspnea on exertion as well as increasing leg swelling Patient has noticed increasing leg swelling as well as scrotal swelling in the last few days. He followed instructions to titrate up the dose of his Torsemide but did not see any improvement. He has also noticed dyspnea on exertion with Orthopnea. He denies any coughing, fever or chills. Denies any urinary symptoms such as dysuria or frequency. He denies any chest pain. He is compliant with medications and dietary restrictions. He has multiple organ dysfunction including renal failure, cirrhosis, Chronic heart failure with poor EF and Pulmonary hypertension. Still lives independently and able to perform activity of daily living. Past Medical History Significant PMH Noted: Pulmonary hypertension Chronic A. fib Hypertension Hyperlipidemia Diabetes Type 2 Chronic Kidney disease COPD Glaucoma Diabetes mellitus Emphysema Subdural hematoma-divya holes by [facility], off anticoagulation AAA repair at [place] Hepatic cirrhosis with anasarca, he was told that his liver was "shot" from EtOH likely,chronically elevated bilirubin BPH, last saw urologist Dr. Patel mid 2015 Coronary artery disease s/p 5 vessel CABG 1982 with redo bypass 1992 Ischemic Cardiomyopathy EF 40-45% Mild to Moderate MR popliteal cyst . Surgical History Cholecystectomy with stones, performed because of possible mass CABG with redo Family History Father had ME age 54 Mother had Stroke Social History Hx Alcohol Use: No Hx Substance Use: No Hx Tobacco Use: Yes Smoking Status: Former Smoker, quit when he underwent his 2nd CABG Medications Current Medications: Current Medications Sodium Chloride 10 ml JAMEEL IVFLUSH Last administered on 05/05/16 08:56; Admin Dose 10 ML; Start 05/05/16 at 00:30 Furosemide 40 mg BID IVPUSH; Start 05/04/16 at 20:30; Stop 05/04/16 at 20:30; Status DC Al Hydrox/Mg Hydrox/Simethicone 30 ml Q6 PRN PO; Start 05/04/16 at 19:40 Ondansetron HCl 4 mg Q4H PRN IVPUSH; Start 05/04/16 at 19:40 Senna 2 tablet BID PRN PO; Start 05/04/16 at 19:40 Polyethylene Glycol 17 gm DAILY PRN PO; Start 05/04/16 at 19:40 Acetaminophen 650 mg Q6H PRN PO; Start 05/04/16 at 19:40 Nitroglycerin 0.4 mg Q5MIN PRN SL; Start 05/04/16 at 19:40 Heparin Sodium (Porcine) 5,000 unit Q8 SUBQ Last administered on 05/04/16 23:57 ; Admin Dose 5,000 UNIT; Start 05/05/16 at 00:30 Furosemide 80 mg 06,18 IVPUSH Last administered on 05/05/16 05:55; Admin Dose 80 MG; Start 05/05/16 at 06:00 Insulin Human Lispro Nutritional Dose to be given pr... [facility] SUBQ Last administered on 05/05/16 11:53; Admin Dose 2 UNIT; Start 05/04/16 at 22:00 Scheduled Allopurinol (Allopurinol) 100 Mg Tablet 100 MG PO QAM Arformoterol Tartrate (Brovana) 15 Mcg/2 Ml Vial.neb 15 MCG IH BID Ascorbic Acid (Vitamin C) 500 Mg Capsule.er 500 MG PO QAM Aspirin (Aspirin) 81 Mg Tablet 81 MG PO QAM Atorvastatin Calcium (Atorvastatin Calcium) 20 Mg Tablet 20 MG PO HS Brimonidine Tartrate (Brimonidine 0.2% Oph Soln) 5 Ml Drops 1 GTT LEFT_EYE TID Cider Vinegar (Apple Cider Vinegar) 600 Mg Capsule 600 MG PO DAILY Cyanocobalamin (Vitamin B-12) (Vitamin B-12) 50 Mcg Tablet 100 MCG PO DAILY Dorzolamide (Dorzolamide) 10 Ml Drops 1 GTT BOTH_EYES BID Fluticasone Propionate (Flovent HFA 220 mcg) 12 Gm Aer.w.adap 1 PUFF IH BID Fosinopril Sodium (Fosinopril Sodium) 20 Mg Tablet 10 MG PO HS Latanoprost (Latanoprost) 2.5 Ml Drops 1 GTT BOTH_EYES HS Metformin ER (Metformin ER) 500 Mg Tablet 500 MG PO QAM Metolazone (Metolazone) 5 Mg Tablet 5 MG PO DAILY Multivitamin (Multivitamins) 1 Each Capsule 1 EACH PO DAILY Nitroglycerin 0.2 mg/hr Patch (Nitroglycerin 0.2 mg/hr Patch) 1 Each Patch 0.2 MG TRANSDERM QPM APPLY AT 1900, OFF AT 7 AM Potassium Chloride (Potassium Chloride) 10 Meq Tab.er.prt 20 MEQ PO BIDWM TAKE WITH FOOD Terazosin (Terazosin) 10 Mg Capsule 10 MG PO HS Torsemide (Torsemide) 20 Mg Tablet 60 MG PO QAM AT 0800. TAKE TORSEMIDE 60 MG IN AM, 40 MG IN AFTERNOON Torsemide (Torsemide) 20 Mg Tablet 40 MG PO QPM AT 1500. TAKE TORSEMIDE 60 MG IN AM, 40 MG IN AFTERNOON. Scheduled PRN Insulin Glargine (Lantus U100 Solostar Insulin Pen) 100 Unit/1 Ml Insuln.pen 12 UNIT SUBQ QAM PRN PRN blood sugar >150 Levalbuterol HCl (Xopenex Concentrate) 1.25 Mg/0.5 Ml Vial.neb 1.25 MG IH BID PRN PRN For Shortness of Breath Objective Findings Exam Vital Sign - Last Date Time Temp Pulse Resp B/P Pulse Ox O2 Delivery O2 Flow Rate FiO2 05/05/16 11:54 36.3 72 20 104/57 98 Nasal Cannula 2.00 Intake and Output 05/04/16 05/04/16 05/05/16 Cumulative From/Thru 15:00 23:00 07:00 05/04/16 17:57 - 05/05/16 06:48 Intake Total 1005 ml 1005 ml Output Total 1150 ml 1150 ml Balance -145 ml -145 ml Intake Oral 1005 ml 1005 ml Output Urine Total 1150 ml 1150 ml Objective General: Alert, Oriented X3, Cooperative, No acute Distress Eyes: PERRLA, slight dark half [place] inner eyelids B/L, Scleral Anicteric Mouth: Mouth Normal, Mucous Membranes Moist/Dugger Neck: Supple, no Thyromegaly Chest & Lungs: decreased breathe sounds at bases healed CABG scar on mid chest Cardiovascular: Normal S1, Normal S2, No Rubs/Gallops, irregularly irregular, + JVD, Abdomen: Soft, Non-tender, Non-distended, Normoactive bowel tones. Musculoskeletal: Unremarkable, no swollen or erythematous joints Extremities: 3+ pitting edema, no cyanosis, no clubbing. Skin: No rashes. Warm and dry. Venous stasis changes. Neurological: Grossly neurologically intact, generalized weakness, Normal Speech, Sensation Intact Lab/Diagnostics Item Value Date Time Sodium Level 138 mEq/L 05/05/16 0603 Potassium Level 4.2 mEq/L 05/05/16 0603 Chloride Level 98 mEq/L 05/05/16 0603 Carbon Dioxide Level 22 mmol/L 05/05/16 0603 Blood Urea Nitrogen 89 mg/dL *H 05/05/16 0603 Creatinine 2.91 mg/dL H 05/05/16 0603 Estimat Glomerular Filtration Rate 22 mL/min 05/05/16 0603 Glucose Level 146 mg/dL H 05/05/16 0603 Calcium Level 9.0 mg/dL 05/05/16 0603 Troponin T 0.091 ug/L *H 05/05/16 0603 Troponin T 0.079 ug/L *H 05/05/16 1200 Pro-B-Type Natriuretic Peptide 4596 pg/mL H 05/05/16 0603 Thyroid Stimulating Hormone (TSH) 5.270 uIU/mL H 05/04/16 1830 Triglycerides Level 64 mg/dL 05/05/16 0603 Cholesterol Level 113 mg/dL 05/05/16 0603 LDL Cholesterol, Calculated 49.200 mg/dL 05/05/16 0603 VLDL Cholesterol 12.800 mg/dL 05/05/16 0603 HDL Cholesterol 51 mg/dL 05/05/16 0603 Cholesterol/HDL Ratio 2.22 05/05/16 0603 CXR 05/04/16 INDICATIONS: chf, maldonado FINDINGS: Surgical changes and devices: Sternal wires are unchanged. Lungs and pleura: There is persistent opacity within the right upper lobe. Mediastinum: Mediastinal contours appear normal. Heart size is normal. Bones and chest wall: No suspicious bony lesions. Overlying soft tissues appear unremarkable. Old rib fractures are again noted. IMPRESSION: Persistent right upper lobe opacity, unchanged. Dictated by: Emily Donis M.D. on 05/04/2016 at 18:48 Time spent Total time 50 minutes; >50% face to face with patient and/or family, providing counselling regarding plans and recommendations, and in care coordination with his/her medical teams. Jayne Meyer MD May 05, 2016 13:45
--- NOTE | 2016-05-05 16:24 | NUR ---
Social Work: Initial Assessment Data: Pt is an 86 y/o male admitted for CHF with anasarca with worsening renal i. Pt's insurance is Medicare with [employer] for life supp. EMR reviewed. Readmit score is 5. TOOL AND DIE MANAGER met with pt at bedside, role explained. Pt states that he lives alone in [place] in a single story home with 5 steps to enter where he uses no DME. Pt stats he drives, has no hx of HH, spent time at [facility] in the past, has no LTC insurance, is a but is unsure of his benefit coverage. Palliative is consulting with pt and plans to see pt tomorrow. TOOL AND DIE MANAGER will follow post pall. Pt may benefit from PT evaluations, TOOL AND DIE MANAGER to request if appropriate at rounds. TOOL AND DIE MANAGER will continue to follow for d/c planning needs. Assessment: Pt who is independent at baseline. Plan: Pt will likely d/c home, as that is his desire. PT to be requested by TOOL AND DIE MANAGER in rounds on . Palliative following pt. TOOL AND DIE MANAGER will continue to follow for d/c planning needs. JANICE Brothers Addendum: 05/05/16 at 1628 by NAVARRO TAVERAS Amended: Links added.
--- NOTE | 2016-05-05 17:18 | PCM.PNMED ---
Subjective Date of Service May 05, 2016 Subjective 86 yo with Chronic systolic heart failure with recent exacerbation, Chronic Atrial fibrillation, Pulmonary hypertension and Coronary artery disease admitted on 05/04 due to increasing dyspnea on exertion as well as increasing leg swelling. He reports some improvement in breathing overnight. States he has been urinating frequently. He has had significant PND within the past 24 hours. Remain heavy with significant edema. No other complaints. Exam Vital Signs Vital Sign - Last Date Time Temp Pulse Resp B/P Pulse Ox O2 Delivery O2 Flow Rate FiO2 05/05/16 16:51 36.4 78 20 111/69 96 Nasal Cannula 2.00 Intake and Output 05/04/16 05/04/16 05/05/16 Cumulative From/Thru 15:00 23:00 07:00 05/04/16 17:57 - 05/05/16 06:48 Intake Total 1005 ml 1005 ml Output Total 1150 ml 1150 ml Balance -145 ml -145 ml Intake Oral 1005 ml 1005 ml Output Urine Total 1150 ml 1150 ml Exam General: Slightly ill-appearing elderly man talkative in no acute distress HEENT: sclerae anicteric, oral mucosa moist Neck: JVP approximately 6 cm above the sternal notch Chest: Bibasilar inspiratory crackles, no dullness Cardiac: S1S2, II/ systolic murmur, irregular Abdomen: BS normal, non-tender Extremities: 3+ pedal edema Neuro: A&O, cranial nerves symmetric, motor strength and coordination normal IVs and Medications Medications Reviewed: Medications were reviewed in detail Lab and Diagnostics Result Diagram: 05/04/16 1830 05/05/16 0603 X-Rays, CTs and MRIs PROCEDURE: X-RAY CHEST ONE VIEW, PORTABLE ([id number]) IMPRESSION: Persistent right upper lobe opacity, unchanged.. Dictated by: Emily Donis M.D. on 05/04/2016 at 18:48 . 12-lead ECG 05/05/16 09:04 - atrial fibrillation rate 80. QTC 492. Occasional PVC lateral T -wave inversions I, aVR, V3-V6 Assessment & Plan 86 yo with Chronic systolic heart failure with recent exacerbation, Chronic Atrial fibrillation, Pulmonary hypertension and Coronary artery disease who presents to [facility] emergency department due to increasing dyspnea on exertion as well as increasing leg swelling Acute and/or high-risk conditions: #. Acute on Chronic systolic Heart failure with PND and anasarca. Present on admission. Recent 9 pound weight gain. Trigger unclear but may be due to inadequate diuretic dosing due to worsening renal function. - diuretic therapy with Lasix 80 mg IV bid, titrate to weight and urine output - Cardiology consult #. 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 Present on admission serum creatinine 3.16. Baseline creatinine over past 2 months has ranged from 1.8-3.9 , during the course of 2 hospitalizations. Chronic disease related to cardiorenal syndrome, Hypertensive Nephrosclerosis and Diabetic Nephropathy. Nephrology Dr Banks had seen patient during last admission - avoid nephrotoxic insults - monitor urine output - Daily BMP # Chronic Atrial fibrillation. No warfarin. rate controlled currently but patient stopped his Metoprolol recently on his own due to low BP at home - monitor on telemetry - resume Metoprolol for rate control Plans and goals of care. Patient has had frequent recent admissions for poorly controlled severe heart failure with associated chronic kidney disease and cirrhosis - Palliative care consult requested Resolving, stable and/or chronic conditions: #. Elevated troponin. This appears to be chronic and associated with CKD. - No cardiac intervention #. Chronic anemia likely secondary to chronic kidney disease - No clinical evidence of GI bleeding - Defer anemia workup to outpatient setting #. Cirrhosis with Thrombocytopenia, present on admission - Ultrasound demonstrating heterogeneously increased echo texture suspicious for chronic liver disease such as hepatitis or cirrhosis - he reported having a biopsy that showed cirrhosis with prior history of consistent alcohol intake in the past #. COPD with Chronic respiratory failure No evidence of acute exacerbation without any coughing or sputum changes - continue oxygen supplementation (2 L) - no indications for steroids or antibiotics #. Diabetes mellitus Type 2 - low correction Lispro algorithm - holding Metformin - continuing Lantus (will determine outpatient dose) - Acetaminophen as needed for mild pain/fever/headache - Bowel regimen as needed - Antiemetic as needed Patient admitted under inpatient status with expected length of stay > 2 midnights for severity of present symptoms, complexities of treatment plan and risk for adverse event . VTE Prophylaxis: Sub-Q Heparin (Unfractionated) Resuscitation Status: DNR/DNI:Do Not Resuscitate/Intubate Time spent 35 min Sp Wallace MD May 05, 2016 17:17
--- NOTE | 2016-05-05 17:49 | DRSVH ---
[facility] [address] [place] [address] Echocardiogram Report Name: XIOMARA CONNORS Date : 05/05/2016 Height: 72 in Hospital Exam Location: [facility] Weight: 209 lb Gender: Male BSA: 2.2 m2 : 1930 Age: 86 yrs BP: 101/70 mm Hg Reason For Study: SOB Ordering Physician: HOSPITALIST MECHELLEHPerformed By: Dannielle Candelaria Referring Physician: Lam Duron Interpretation Summary The left ventricle is normal in size. Left ventricular systolic function is mildly reduced. The ejection fraction is estimated to be 45-50%. There has been no significant change since the previous study. Septal motion is consistent with conduction abnormality. There is apical septal wall akinesis. There is apical inferior wall akinesis. There is mid inferior wall hypokinesis. The right ventricle is mildly dilated. Right ventricular systolic function is mild to moderately reduced. There has been no significant change since the previous exam. The right ventricular systolic pressure is estimated at 66 mmHg assuming a right atrial pressure of 15 mm Hg. Compared to the prior echo exam, there has been an increase in the severity of pulmonary hypertension. The left atrium is severely dilated. The right atrium is mildly dilated. There is mild mitral regurgitation. There is moderate to severe tricuspid regurgitation. Compared to the prior echo exam, there has been no change in TR severity. The aortic root is mildly dilated. The ascending aorta is at the upper limits of normal in size. Moderate abdominal ascites noted. Procedure: A two-dimensional transthoracic echocardiogram with color flow and Doppler was performed. The study quality was technically difficult. Comparison is made with the echocardiogram of 03-26-16. The heart rate ranged between 73-80 bpm during the study. Left Ventricle: The left ventricle is normal in size. There is normal left ventricular wall thickness. Left ventricular systolic function is mildly reduced. The ejection fraction is estimated to be 45-50%. There has been no significant change since the previous study. Septal motion is consistent with conduction abnormality. There is apical septal wall akinesis. There is apical inferior wall akinesis. There is mid inferior wall hypokinesis. Right Ventricle: The right ventricle is mildly dilated. Right ventricular systolic function is mild to moderately reduced. There has been no significant change since the previous exam. Atria: The left atrium is severely dilated. The right atrium is mildly dilated. Mitral Valve: The mitral valve leaflets appear mildly thickened, but open well. The mitral valve leaflets appear to open well. There is mild mitral regurgitation. Aortic Valve: The aortic valve is trileaflet. Leaflet mobility is minimally reduced. The aortic valve is moderately calcified. There is trace aortic regurgitation. Tricuspid Valve: The tricuspid valve leaflets are thin and pliable. There is moderate to severe tricuspid regurgitation. Compared to the prior echo exam, there has been no change in TR severity. The right ventricular systolic pressure is estimated at 66 mmHg assuming a right atrial pressure of 15 mm Hg. Compared to the prior echo exam, there has been an increase in the severity of pulmonary hypertension. Pulmonic Valve: The pulmonic valve is not well visualized. Great Vessels: The aortic root is mildly dilated. The ascending aorta is at the upper limits of normal in size. The IVC is dilated (diameter is greater than 2.1 cm) and it collapses less than 50% with a sniff. This suggests a high right atrial pressure of 15 mm Hg. Pericardium/ Pleura There is no pericardial effusion. There is no pleural effusion. Moderate abdominal ascites noted. MMode/2D Measurements & Calculations LVIDd: 3.9 cm LA dimension: 4.9 cm RA long axis AoV Opening LVIDs: 2.9 cm FS: 23.9 % LA A2 area: 32.8 cm RA area Ao root diam IVSd: 0.85 cm LA A4 area: 29.6 cm LVPWd: 0.88 cm LA length (vol): 7.1 cm: 27.4 cm Aortic Jxn LA vol: 117.0 ml RA vol LA vol index : 85.4 ml asc Aorta RA Diam: 3.7 cm : 39.3 mm/ IVC diam: 3.5 cm RVDd major : 7.6 cm LV burnette. diameter/BSA LV sys. diameter/BSA RVD1 (basal) RVD2 (mid) (cm/m^2): 1.8 (cm/m^2): 1.4 : 4.9 cm Doppler Measurements & Calculations Ao V2 max MV P1/2t: 81.7 msec Med Peak E' Alexandre TR max alexandre : 144.8 cm/sec : 355.7 cm/sec Ao max PG Lat Peak E' Alexandre TR max PG : 8.4 mmHg : 10.0 cm/sec : 50.6 mmHg Ao mean PG LVOT Max Alexandre : 79.2 cm/sec sev ratio MV V2 mean MV P1/2t max alexandre Ao V2 mean LV V1 max PG : 53.8 cm/sec : 99.1 cm/sec MV mean PG MVA(P1/2t): 2.7 cm2 Ao V2 VTI: 31.2 cm LV V1 VTI: 17.1 cm MV V2 VTI: 21.4 cm Reading Physician:PIETER
[2016-05-05] MEDS: Furosemide 10 mg/mL 10 mL Inj IVPUSH SCH (18:18)
--- NOTE | 2016-05-05 19:15 | NUR ---
DC IV/refusing heparin. Pt left forearm IV discontinued due to bleeding. Pressure held for 10min before bleeding stopped. IV restarted on left arm. Ongoing care. Pt refusing heparin shots, stating having complication with blood thinners.
[2016-05-06] VITALS (7 sets, daily range): BP systolic 106–140; BP diastolic 57–86; PULSE 80–90; RESP 16–20; O2SAT 92–99
[2016-05-06] MEDS: Sodium Chloride LOK Flush 10 mL Syringe IVFLUSH SCH ×3 (00:30→16:44)
[2016-05-06] MEDS: Heparin 5,000 Unit/mL Inj SUBQ SCH ×3 (02:30→16:30)
[2016-05-06] MEDS: Furosemide 10 mg/mL 10 mL Inj IVPUSH SCH (06:36)
[2016-05-06] MEDS: Insulin LISPRO 300 Unit/3 mL Inj SUBQ SCH ×4 (08:00→21:38)
--- NOTE | 2016-05-06 16:19 | PCM.PNMED ---
Subjective Date of Service May 06, 2016 Subjective 86 yo with Chronic systolic heart failure with recent exacerbation, Chronic Atrial fibrillation, Pulmonary hypertension and Coronary artery disease admitted on 05/04 due to increasing dyspnea on exertion as well as increasing leg swelling. He reports some improvement in breathing overnight. He feels has been urinating frequently, but urine output is not impressive. He has had no significant PND within the past 24 hours. His legs remain heavy with significant edema. No other complaints. Exam Vital Signs Vital Sign - Last Date Time Temp Pulse Resp B/P Pulse Ox O2 Delivery O2 Flow Rate FiO2 05/06/16 12:47 36.4 83 18 140/76 99 Nasal Cannula 2.00 Intake and Output 05/05/16 05/05/16 05/06/16 Cumulative From/Thru 15:00 23:00 07:00 05/04/16 17:57 - 05/06/16 06:49 Intake Total 790 ml 918 ml 2713 ml Output Total 1550 ml 2700 ml Balance 790 ml -632 ml 13 ml Intake Oral 790 ml 918 ml 2713 ml Output Urine Total 1550 ml 2700 ml # Voids 6 6 # Bowel Movements 1 1 Exam General: Slightly ill-appearing elderly man talkative in no acute distress HEENT: sclerae anicteric, oral mucosa moist Neck: JVP approximately 6 cm above the sternal notch Chest: Bibasilar inspiratory crackles, left greater than right, no dullness Cardiac: S1S2, II/ systolic murmur, irregular Abdomen: BS normal, non-tender Extremities: 3+ pedal edema Neuro: A&O, cranial nerves symmetric, motor strength and coordination normal IVs and Medications Medications Reviewed: Medications were reviewed in detail Lab and Diagnostics Troponin series: 0.09, 0.08, 0.08 Result Diagram: 05/04/16 1830 05/05/16 0603 X-Rays, CTs and MRIs PROCEDURE: X-RAY CHEST ONE VIEW, PORTABLE ([id number]) IMPRESSION: Persistent right upper lobe opacity, unchanged.. Dictated by: Emily Donis M.D. on 05/04/2016 at 18:48 . 12-lead ECG 05/05/16 09:04 - atrial fibrillation rate 80. QTC 492. Occasional PVC lateral T -wave inversions I, aVR, V3-V6 Assessment & Plan 86 yo with Chronic systolic heart failure with recent exacerbation, Chronic Atrial fibrillation, Pulmonary hypertension and Coronary artery disease who presents to [facility] emergency department due to increasing dyspnea on exertion as well as increasing leg swelling Acute and/or high-risk conditions: #. Acute on Chronic systolic Heart failure with PND and anasarca. Present on admission. Recent 9 pound weight gain. Trigger unclear but may be due to inadequate diuretic dosing due to worsening renal function. - Increase diuretic therapy with Lasix 120 mg IV bid, titrate to weight and urine output - Metolazone daily - Cardiology consult #. 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 Present on admission serum creatinine 3.16. Baseline creatinine over past 2 months has ranged from 1.8-3.9 , during the course of 2 hospitalizations. Chronic disease related to cardiorenal syndrome, Hypertensive Nephrosclerosis and Diabetic Nephropathy. Nephrology Dr Banks had seen patient during last admission - avoid nephrotoxic insults - monitor urine output - Daily BMP # Chronic Atrial fibrillation. No warfarin. rate controlled currently but patient stopped his Metoprolol recently on his own due to low BP at home - monitor on telemetry - resume Metoprolol for rate control #. Diabetes mellitus Type 2. Glycemic control above inpatient target. - Increase correction Lispro algorithm - holding Metformin -Increase Lantus Plans and goals of care. Patient has had frequent recent admissions for poorly controlled severe heart failure with associated chronic kidney disease and cirrhosis, but does not seem bothered by this. - Palliative care consult requested Resolving, stable and/or chronic conditions: #. Elevated troponin. This appears to be chronic and associated with CKD. - No cardiac intervention #. Chronic anemia likely secondary to chronic kidney disease - No clinical evidence of GI bleeding - Defer anemia workup to outpatient setting #. Cirrhosis with Thrombocytopenia, present on admission - Ultrasound demonstrating heterogeneously increased echo texture suspicious for chronic liver disease such as hepatitis or cirrhosis - he reported having a biopsy that showed cirrhosis with prior history of consistent alcohol intake in the past #. COPD with Chronic respiratory failure No evidence of acute exacerbation without any coughing or sputum changes - continue oxygen supplementation (2 L) - no indications for steroids or antibiotics - Acetaminophen as needed for mild pain/fever/headache - Bowel regimen as needed - Antiemetic as needed Patient admitted under inpatient status with expected length of stay > 2 midnights for severity of present symptoms, complexities of treatment plan and risk for adverse event . VTE Prophylaxis: Sub-Q Heparin (Unfractionated) Resuscitation Status: DNR/DNI:Do Not Resuscitate/Intubate Time spent 35 minutes Sp Wallace MD May 06, 2016 16:19
--- NOTE | 2016-05-06 17:19 | PCM.PALLBR ---
Palliative Care Recommendation Summary of palliative recommendations: Symptom management (Pain/other): Dyspnea-due to bivent CHF and COPD with emphysema Lung mass- of unknown significance-bronch by hx nondx. No records but managed at [facility]-May have info on lung fxn CRI-worse Probable cirrhosis-congestive at least part of it now with ascites. Anger/poor insight-denies anything is wrong. Possible delirium with remarkable change in personality from this AM to PM. As below- he does not buy chronic now worse multisystem ds and blames us for not "fixing" it. He defines if we cannot fix it we are stupid. May benefit from MMSE to assess baseline cognition. He requested I leave so this was not done WRT POLST- he states it is done and that he gave a copy of it [place] [facility] and that he has the original at home and he has not intention of filling out another. He does confirm DNR/DNI. DPOA/Advanced Directives/POLST: 1. Code status: DNR/DNI. Discussed with Dr. Cameron and patient's decision. 2. POA: no paperwork, however patient designated his brother as his surrogate decision maker: Elijah Jones (brother) [phone]. Elijah is in room, he is the youngest of 4 brothers (only Elijah and Jerry are still living) . Elijah and his Mei live in [place]. Elijah plans to return tomorrow to visit his brother. 3. POLST: no prior paperwork. -Family/emotional support: from brother and his brother's Pt's background and functional status at baseline: 1. 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 a [place] and had 2 children, a daughter hospitalized in a mental institution in [place] (ill 2/2 drugs) and a son Govind in [place] who he speaks to on the phone daily. He had a 2nd /mobile application tester(?), but they parted company (not sure if , but they have no contact and he doesn't know where she is ). 2. He has been living independently at home, drives, does his own grocery shopping and meal preparation. Doesn't want any VA helpers to come in and look after him, wants to continue to be independent. He gave coherent details about every aspect of his day. He takes two long naps daily: morning and afternoon. He doesn't go out to restaurants because he stays on a low salt, low fat diet. 05/05 Family Conference: Dr. Meyer met with patient and brother Elijah today and initiated discussion about Jerry's chronic illnesses and how he may need more help in the future. Jerry isn't buying it. He will an independent man in his own house in [facility]. Jerry will happily discuss his life and memories , and is willing to have his brother make decisions ("but only if I am too sick or unconscious") for him. CM worker arrived near end of discussion and will cotton picker operator more information on Jerry's VA status and how that might help in future, if Jerry can be persuaded to accept VA nurses or PHYSICAL CHEMIST visits. He is not interested in trying to imagine (or plan for) a future where he might need more help. Elijah says that Jerry is aware of CXR with RUL possible mass, heard about it from a doctor at another hospital. Jerry refused work up at that time. Spiritual support: not addressed today. Patient Goals: TBA Palliative Care will make pt and family contact tomorrow. Additional Medical Diagnoses with primary management by Hospitalist team include : Prior Issues on April 17 Discharge Summary were: 1. Acute on Chronic systolic Heart failure. Present on admission, - Trigger unclear but may be due to inadequate diuretic dosing due to worsening renal function. Consider underlying ischemic heart disease. Possible the urine infection may be causing cardiac stress. Differential diagnosis includes increasing Anasarca due to portal hypertension and cirrhosis, Hypothyroid disease - TSH mildly elevated consistent with hypothyroidism patient will follow with primary care physician - diuretic therapy with Lasix 80 mg IV bid discontinued and Torsemide 40mg BID and metolazone 5mg daily, titrate to weight and urine output - Cardiology consult requested by admitting doctor, no recommendations given - Patient to be discharged with torsemide 40 mg twice a day with instructions to increase morning dose to 80 mg based off of body weight, with KCL 20mEq daily and increased to 40mEq with increased torsemide dose 2. 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 Present on admission - Likely pre renal due to decreased renal perfusion due to poor cardiac output. Chronic disease related to Hypertensive Nephrosclerosis and Diabetic Nephropathy. - Nephrology consulted with recs to include Metolazone 5mg daily as well as Torsemide 40mg twice daily - FENA calculates to 1.5% however given torsemide this is not an accurate diagnostic evaluation consider fractional excretion of urea - Fractional excretion of urea calculates to 36 % which is in the in the indeterminate range - ultrasound imaging shows 74 mL post void residual in the urinary bladder with 1.9 x 2.1 x 2.7 cm hyperechoic mass at the base of the urinary bladder likely prostate however cannot rule out bladder mass - Patient will be seen in follow-up with urology as an outpatient 3. Urinary tract infection secondary to urinary retention from benign prostatic hypertrophy, Present on admission, under evaluation - Consider underlying prostate pathology including likely benign prostate hypertrophy versus prostate cancer versus prostate infection given 74 mL post void residual in the urinary bladder with 1.9 x 2.1 x 2.7 cm hyperechoic mass at the base of the urinary bladder likely prostate however cannot rule out bladder mass - Blood cultures x 2 - continued urinary retention followed by Dr. Patel of urology on terazosin outpatient, admitting physician has started tamsulosin 0.4mg daily - Culture and sensitivity showed Enterococcus with resistance to Ceftriaxone IV - Initially Ceftriaxone IV converted to Doxycycline PO, which was discontinued in favor of Amoxicillin 500mg BID will treat for minimum of 7 days given complicated UTI - Patient will follow up with urology for evaluation after discharge 4. Anasarca secondary to tricuspid regurgitation, pulmonary hypertension, and renal insufficiency. Present on admission, under evaluation - Nephrology consulted with recs to include Metolazone 5mg daily as well as Torsemide 40mg twice daily 5. Chronic anemia likely secondary to chronic kidney disease, stable - No clinical evidence of GI bleeding - Continue to monitor with follow-up after discharge 6. Thrombocytopenia, present on admission, stable - Ultrasound demonstrating heterogeneously increased echo texture suspicious for chronic liver disease such as hepatitis or cirrhosis to be followed as an outpatient - Recommend patient has outpatient follow-up regarding this issue - Continue to monitor with follow-up after discharge 7. COPD with Chronic respiratory failure, stable - Serial Xray Imaging shows a 1. Persistent right upper lobe airspace opacity. may follow as outpatient - No evidence of acute exacerbation without any coughing or sputum changes - Able to discontinue oxygen supplementation (2 L) - no indications for steroids or antibiotics - duonebs QIDWA to be discontinued after discharge -Patient to return to normal outpatient inhalers 8 Chronic Atrial fibrillation, present on admission stable - monitor on telemetry, ok off for showers - continue outpatient Metoprolol for rate control 9 Diabetes mellitus Type 2, present on admission stable - low correction Lispro algorithm - holding Metformin - continuing Lantus 04/15, will start below regular outpatient dosing given he takes this medication PRN 10 Gout, chronic, present on admission stable - restart home allopurinol - holding cholchicine 11. Coronary artery disease with history of multiple bypass grafts, chronic, present on admission stable - cardiology consulted by admitting physician, appreciate recommendations and time - elevated troponin trended and considered likely secondary to chronic kidney disease given no chest pain without EKG changes - restart home statin medication - Metoprolol ER for rate control 12 History of falls, present on admission, stable - obtained records [facility] about neurosurgical intervention requiring cranial divya holes - patient had subdural hematomas in 2014 requiring divya holes without further complication - Acetaminophen as needed for mild pain/fever/headache - Bowel regimen as needed - Antiemetic as needed disposition: patient will be discharged in the today with follow up as [facility] for further evaluation with labs Problems: End of Life Preferences DNR/DNI Goals of Care He wants to live independently and not have ANYONE tell him what to do. Might benefit from further cognitive testing to assess decisional capacity Disposition He expects to go home Resuscitation Status Resuscitation Status: DNR/DNI:Do Not Resuscitate/Intubate POLST Updates/Changes Previous POLST?: Yes (by his acct-no copy available) Total time 50 minutes; >50% face to face with patient and/or family, providing counselling regarding plans and recommendations, and in care coordination with his/her medical teams. I also spent an additional [ ] minutes counseling for advanced care planning with the patient/the patients family/the surrogate decision maker. copies to: Jerry Poe MD Palliative Brief Note Date of Service May 06, 2016 . 86 yo patient with hx bivent CHF, ischemic HD with CABG starting in his 50's and again in his 60's with a stable EF of 40-45%. He has had hospitalization for CHF 03/25-, 04/13-, 05/04-. He has hx of COPD with emphysema and apparent RUL mass-"being watched", CRI with CR 2-2.3 and with this admission 2.9, cirrhosis thought either alcohol (he states "a few martinis in my day" and 3rd was ETOHic) or congestive. with hepatosplenomegaly and modest thrombocytopenia. Hx ASPVD with repair of AAA in past., chronic anemia This morning , pleasant and talkative about his 91 yo sis who lives in [place], [facility]-same and 2 bros of esophageal CA, son lives in [place]. Talked about the [place] war etc then this afternoon angry, agitated, unclear if he knows who I am etc. This AM allowed exam, this afternoon would not have. Lungs-decreased BS rukhsana at bases, COR- RR, anasarca still to abd wall-definitely LE, abd- distended with presumed ascites, BS + CR- 2.9 Hgb 8.3 plt 128K Malia Neves MD May 06, 2016 17:19
[2016-05-06] MEDS: Furosemide 10 mg/mL 4 mL Inj IVPUSH SCH (18:29)
--- NOTE | 2016-05-06 18:44 | NUR ---
Respiratory status Pt able to be weaned off O2 today with SpO2 mid to high 90s on RA. Pt denies SOB when assessed.
[2016-05-06] MEDS: Insulin GLARgine 100 Unit/mL Syringe SUBQ SCH (21:37)
[2016-05-07] VITALS (9 sets, daily range): BP systolic 100–128; BP diastolic 39–74; PULSE 67–89; RESP 18–20; O2SAT 91–99
[2016-05-07] MEDS: Sodium Chloride LOK Flush 10 mL Syringe IVFLUSH SCH ×3 (01:00→17:07)
[2016-05-07] MEDS: Heparin 5,000 Unit/mL Inj SUBQ SCH ×3 (01:00→16:30)
[2016-05-07] MEDS: Furosemide 10 mg/mL 4 mL Inj IVPUSH SCH ×2 (06:08→17:55)
--- NOTE | 2016-05-07 06:16 | NUR ---
Ambulation Pt is independent in the room. Walks to BR and back to bed without issue. Pt has no current voiced concerns.
[2016-05-07] MEDS: Insulin LISPRO 300 Unit/3 mL Inj SUBQ SCH ×4 (07:33→22:10)
--- NOTE | 2016-05-07 08:40 | PCM.PALLBR ---
Palliative Care Recommendation Summary of palliative recommendations: Symptom management (Pain/other): Dyspnea-due to bivent CHF and COPD with emphysema Lung mass- of unknown significance-bronch by hx nondx. No records but managed at [facility]-May have info on lung fxn CRI-worse Probable cirrhosis-congestive at least part of it now with ascites. 05/06:Anger/poor insight- When Dr. Neves visited him on 05/06, he denies anything is wrong. She speculated that he might have possible delirium with remarkable change in personality from AM to PM rounds. As below- he does not buy chronic now worse multisystem disease and blames us for not "fixing" it. He defines if we cannot fix it we are stupid. May benefit from MMSE to assess baseline cognition. He requested Dr. Neves leave so this was not done 05/06: Dr. Neves asked if he had a prior POLST- he states it is done and that he gave a copy of it on admit to [facility] and that he has the original at home and he has no intention of filling out another. He does confirm DNR/DNI. 05/07: Pt asked Dr. Meyer to leave and would not engage in any discussion. DPOA/Advanced Directives/POLST: 1. Code status: DNR/DNI. Discussed with Dr. Cameron and patient's decision. 2. POA: no paperwork, however patient designated his brother as his surrogate decision maker: Elijah Jones (brother) [phone]. Elijah is in room, he is the youngest of 4 brothers (only Elijah and Jerry are still living) . Elijah and his Mei live in [place]. Elijah plans to return tomorrow to visit his brother. 3. POLST: no prior paperwork. -Family/emotional support: from brother and his brother's Pt's background and functional status at baseline: 1. 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 a [place] and had 2 children, a daughter hospitalized in a mental institution in [place] (ill 2/2 drugs) and a son Govind in [place] who he speaks to on the phone daily. He had a 2nd /pharmacy picking technician(?), but they parted company (not sure if , but they have no contact and he doesn't know where she is ). 2. He has been living independently at home, drives, does his own grocery shopping and meal preparation. Doesn't want any VA helpers to come in and look after him, wants to continue to be independent. He gave coherent details about every aspect of his day. He takes two long naps daily: morning and afternoon. He doesn't go out to restaurants because he stays on a low salt, low fat diet. 05/05 Family Conference: Dr. Meyer met with patient and brother Elijah today and initiated discussion about Jerry's chronic illnesses and how he may need more help in the future. Jerry isn't buying it. He will an independent man in his own house in [facility]. Jerry will happily discuss his life and memories , and is willing to have his brother make decisions ("but only if I am too sick or unconscious") for him. CM worker arrived near end of discussion and will supervisor picking crew more information on Jerry's VA status and how that might help in future, if Jerry can be persuaded to accept VA nurses or SCHEDULING CLERK visits. He is not interested in trying to imagine (or plan for) a future where he might need more help. Elijah says that Jerry is aware of CXR with RUL possible mass, heard about it from a doctor at another hospital. Jerry refused work up at that time. Spiritual support: not addressed. Patient Goals: Palliative Care will sign off today as pt does not want contact with our team. Case discussed at discharge rounds with Attending. Additional Medical Diagnoses with primary management by Hospitalist team include : Prior Issues on April 17 Discharge Summary were: 1. Acute on Chronic systolic Heart failure. Present on admission, - Trigger unclear but may be due to inadequate diuretic dosing due to worsening renal function. Consider underlying ischemic heart disease. Possible the urine infection may be causing cardiac stress. Differential diagnosis includes increasing Anasarca due to portal hypertension and cirrhosis, Hypothyroid disease - TSH mildly elevated consistent with hypothyroidism patient will follow with primary care physician - diuretic therapy with Lasix 80 mg IV bid discontinued and Torsemide 40mg BID and metolazone 5mg daily, titrate to weight and urine output - Cardiology consult requested by admitting doctor, no recommendations given - Patient to be discharged with torsemide 40 mg twice a day with instructions to increase morning dose to 80 mg based off of body weight, with KCL 20mEq daily and increased to 40mEq with increased torsemide dose 2. 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 Present on admission - Likely pre renal due to decreased renal perfusion due to poor cardiac output. Chronic disease related to Hypertensive Nephrosclerosis and Diabetic Nephropathy. - Nephrology consulted with recs to include Metolazone 5mg daily as well as Torsemide 40mg twice daily - FENA calculates to 1.5% however given torsemide this is not an accurate diagnostic evaluation consider fractional excretion of urea - Fractional excretion of urea calculates to 36 % which is in the in the indeterminate range - ultrasound imaging shows 74 mL post void residual in the urinary bladder with 1.9 x 2.1 x 2.7 cm hyperechoic mass at the base of the urinary bladder likely prostate however cannot rule out bladder mass - Patient will be seen in follow-up with urology as an outpatient 3. Urinary tract infection secondary to urinary retention from benign prostatic hypertrophy, Present on admission, under evaluation - Consider underlying prostate pathology including likely benign prostate hypertrophy versus prostate cancer versus prostate infection given 74 mL post void residual in the urinary bladder with 1.9 x 2.1 x 2.7 cm hyperechoic mass at the base of the urinary bladder likely prostate however cannot rule out bladder mass - Blood cultures x 2 - continued urinary retention followed by Dr. Patel of urology on terazosin outpatient, admitting physician has started tamsulosin 0.4mg daily - Culture and sensitivity showed Enterococcus with resistance to Ceftriaxone IV - Initially Ceftriaxone IV converted to Doxycycline PO, which was discontinued in favor of Amoxicillin 500mg BID will treat for minimum of 7 days given complicated UTI - Patient will follow up with urology for evaluation after discharge 4. Anasarca secondary to tricuspid regurgitation, pulmonary hypertension, and renal insufficiency. Present on admission, under evaluation - Nephrology consulted with recs to include Metolazone 5mg daily as well as Torsemide 40mg twice daily 5. Chronic anemia likely secondary to chronic kidney disease, stable - No clinical evidence of GI bleeding - Continue to monitor with follow-up after discharge 6. Thrombocytopenia, present on admission, stable - Ultrasound demonstrating heterogeneously increased echo texture suspicious for chronic liver disease such as hepatitis or cirrhosis to be followed as an outpatient - Recommend patient has outpatient follow-up regarding this issue - Continue to monitor with follow-up after discharge 7. COPD with Chronic respiratory failure, stable - Serial Xray Imaging shows a 1. Persistent right upper lobe airspace opacity. may follow as outpatient - No evidence of acute exacerbation without any coughing or sputum changes - Able to discontinue oxygen supplementation (2 L) - no indications for steroids or antibiotics - duonebs QIDWA to be discontinued after discharge -Patient to return to normal outpatient inhalers 8 Chronic Atrial fibrillation, present on admission stable - monitor on telemetry, ok off for showers - continue outpatient Metoprolol for rate control 9 Diabetes mellitus Type 2, present on admission stable - low correction Lispro algorithm - holding Metformin - continuing Lantus 04/15, will start below regular outpatient dosing given he takes this medication PRN 10 Gout, chronic, present on admission stable - restart home allopurinol - holding cholchicine 11. 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 Might benefit from further cognitive testing to assess decisional capacity Disposition He expects to go home Resuscitation Status Resuscitation Status: DNR/DNI:Do Not Resuscitate/Intubate POLST Updates/Changes Previous POLST?: Yes (by his acct-no copy available) Total time 35 minutes; >50% face to face with patient and/or family, providing counselling regarding plans and recommendations, and in care coordination with his/her medical teams. Palliative Brief Note Date of Service May 07, 2016 . 86 yo patient with hx biventricular CHF, ischemic HD with CABG starting in his 50's and again in his 60's with a stable EF of 40-45%. He has had hospitalization for CHF 03/25-, 04/13-, 05/04-. He has hx of COPD with emphysema and apparent RUL mass-"being watched", CRI with CR 2-2.3 and with this admission 2.9, cirrhosis thought either alcohol (he states "a few martinis in my day" and 3rd was ETOHic) or congestive with hepatosplenomegaly and modest thrombocytopenia. Hx ASPVD with repair of AAA in past., chronic anemia Subjective: Pt denies any needs. Says he knows me "from before" (I met him on ) and he doesn't want "people like me interfering in his life." He says he likes to be independent and he is going to stay that way. Objective: Patient refused my exam. CR- 2.9-->2.2 today Hgb 8.3 plt 128K Pro-BNP: 2746 today Jayne Meyer MD May 07, 2016 08:40 Jayne Meyer MD May 07, 2016 08:40
--- NOTE | 2016-05-07 17:30 | PCM.PNMED ---
Subjective Date of Service May 07, 2016 Subjective 86 yo with Chronic systolic heart failure with recent exacerbation, Chronic Atrial fibrillation, Pulmonary hypertension and Coronary artery disease admitted on 05/04 due to increasing dyspnea on exertion as well as increasing leg swelling. He reports some improvement in breathing. He feels has been urinating frequently. He has had no significant PND within the past 24 hours. His legs remain heavy with significant edema. No other complaints. Exam Vital Signs Vital Sign - Last Date Time Temp Pulse Resp B/P Pulse Ox O2 Delivery O2 Flow Rate FiO2 05/07/16 17:02 36.3 77 18 112/65 96 Room Air 05/06/16 21:24 2.00 Intake and Output 05/06/16 05/06/16 05/07/16 Cumulative From/Thru 15:00 23:00 07:00 05/04/16 17:57 - 05/07/16 06:50 Intake Total 8 ml 1050 ml 3771 ml Output Total 1700 ml 4400 ml Balance 8 ml -650 ml -629 ml Intake Oral 1050 ml 3763 ml IV Total 8 ml 8 ml Output Urine Total 1700 ml 4400 ml # Voids 2 8 # Bowel Movements 1 Exam General: Elderly man talkative in no acute distress HEENT: sclerae anicteric, oral mucosa moist Neck: JVP approximately 5 cm above the sternal notch Chest: Bibasilar inspiratory crackles, no dullness Cardiac: S1S2, II/ systolic murmur, irregular Abdomen: BS normal, non-tender Extremities: 3+ pedal edema Neuro: A&O, cranial nerves symmetric, motor strength and coordination normal IVs and Medications Medications Reviewed: Medications were reviewed in detail Lab and Diagnostics Result Diagram: 05/04/16 1830 05/07/16 0445 X-Rays, CTs and MRIs PROCEDURE: X-RAY CHEST ONE VIEW, PORTABLE ([id number]) IMPRESSION: Persistent right upper lobe opacity, unchanged.. Dictated by: Emily Donis M.D. on 05/04/2016 at 18:48 . 12-lead ECG 05/05/16 09:04 - atrial fibrillation rate 80. QTC 492. Occasional PVC lateral T -wave inversions I, aVR, V3-V6 Assessment & Plan 86 yo with Chronic systolic heart failure with recent exacerbation, Chronic Atrial fibrillation, Pulmonary hypertension and Coronary artery disease who presents to [facility] emergency department due to increasing dyspnea on exertion as well as increasing leg swelling Acute and/or high-risk conditions: #. Acute on Chronic systolic Heart failure with PND and anasarca. Present on admission. Recent 9 pound weight gain. Trigger unclear but may be due to inadequate diuretic dosing due to worsening renal function. Poor response to diuretics so far. - Increase diuretic therapy with Lasix 120 mg IV bid, titrate to weight and urine output - Metolazone daily - Cardiology consult #. 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 Present on admission serum creatinine 3.16. Baseline creatinine over past 2 months has ranged from 1.8-3.9 , during the course of 2 hospitalizations. Chronic disease related to cardiorenal syndrome, Hypertensive Nephrosclerosis and Diabetic Nephropathy. Nephrology Dr Banks had seen patient during last admission - avoid nephrotoxic insults - monitor urine output - Daily BMP # Chronic Atrial fibrillation. No warfarin. rate controlled currently but patient stopped his Metoprolol recently on his own due to low BP at home - monitor on telemetry - resume Metoprolol for rate control #. Diabetes mellitus Type 2. Glycemic control above inpatient target. - Increase correction Lispro algorithm - holding Metformin -Increase Lantus Plans and goals of care. Patient has had frequent recent admissions for poorly controlled severe heart failure with associated chronic kidney disease and cirrhosis, but does not seem bothered by this. - Palliative care consult performed at patient is not interested in reducing intensity of care Resolving, stable and/or chronic conditions: #. Elevated troponin. This appears to be chronic and associated with CKD. - No cardiac intervention #. Chronic anemia likely secondary to chronic kidney disease - No clinical evidence of GI bleeding - Defer anemia workup to outpatient setting #. Cirrhosis with Thrombocytopenia, present on admission - Ultrasound demonstrating heterogeneously increased echo texture suspicious for chronic liver disease such as hepatitis or cirrhosis - he reported having a biopsy that showed cirrhosis with prior history of consistent alcohol intake in the past #. COPD with Chronic respiratory failure No evidence of acute exacerbation without any coughing or sputum changes - continue oxygen supplementation (2 L) - no indications for steroids or antibiotics - Acetaminophen as needed for mild pain/fever/headache - Bowel regimen as needed - Antiemetic as needed Patient admitted under inpatient status with expected length of stay > 2 midnights for severity of present symptoms, complexities of treatment plan and risk for adverse event . VTE Prophylaxis: Sub-Q Heparin (Unfractionated) Resuscitation Status: DNR/DNI:Do Not Resuscitate/Intubate Time spent 30 minutes Sp Wallace MD May 07, 2016 17:30
--- NOTE | 2016-05-07 18:30 | NUR ---
Activity/Respiratory status Pt up in room independently, slow steady gait. Pt stating being able to be on RA for most of the day however getting SOB after activity at times. Back on O2 2L nc for SOB intermittently with SOB. SpO2 mid 90s on RA. Ongoing care.
[2016-05-07] MEDS: Insulin GLARgine 100 Unit/mL Syringe SUBQ SCH (22:11)
[2016-05-08] VITALS (9 sets, daily range): BP systolic 107–127; BP diastolic 63–75; PULSE 64–87; RESP 16–18; O2SAT 94–99
[2016-05-08] MEDS: Sodium Chloride LOK Flush 10 mL Syringe IVFLUSH SCH ×3 (00:12→17:02)
[2016-05-08] MEDS: Heparin 5,000 Unit/mL Inj SUBQ SCH ×3 (00:13→16:30)
--- NOTE | 2016-05-08 04:48 | NUR ---
Respiratory Pt alert and oriented x3. [place]. Dyspnea with exertion noted. Desat to 86-88% on RA especially during activity. Placed back on 2L with 02sat 90-94%. No c/o pain/discomfort.
[2016-05-08] MEDS ORDERED: 0.9% Sodium Chloride 250 ML ONE (05:30)
[2016-05-08] MEDS: Furosemide 10 mg/mL 4 mL Inj IVPUSH SCH (05:58)
[2016-05-08] MEDS ORDERED: Potassium Chloride 20 mEq SR Tablet PO ONE (06:20)
[2016-05-08] MEDS: Insulin LISPRO 300 Unit/3 mL Inj SUBQ SCH ×4 (08:00→22:35)
[2016-05-08] MEDS: Senna-Docusate 8.6-50 mg Tablet PO PRN (09:14)
[2016-05-08] MEDS ORDERED: KCl 20 mEq/100 mL(CENTRAL) 20 MEQ in IV Premix 1 EACH IV ONE (11:55)
--- NOTE | 2016-05-08 14:21 | PCM.PNMED ---
Subjective Date of Service May 08, 2016 Subjective 86 yo with chronic right sided heart failure with recent exacerbation of anasarca, Pulmonary hypertension, Chronic Atrial fibrillation with diastolic congestive heart failure, and Coronary artery disease admitted on 05/04 due to increasing dyspnea on exertion as well as increasing leg swelling. He reports some improvement in breathing. He feels has been urinating frequently. He has had no significant PND within the past 24 hours. His legs remain heavy with significant edema. No other complaints. Exam Vital Signs Vital Sign - Last Date Time Temp Pulse Resp B/P Pulse Ox O2 Delivery O2 Flow Rate FiO2 05/08/16 12:14 36.5 83 16 127/67 94 Nasal Cannula 2.00 Intake and Output 05/07/16 05/07/16 05/08/16 Cumulative From/Thru 15:00 23:00 07:00 05/04/16 17:57 - 05/08/16 05:20 Intake Total 1477 ml 640 ml 5888 ml Output Total 2400 ml 3050 ml 9850 ml Balance -923 ml -2410 ml -3962 ml Intake Oral 1477 ml 640 ml 5880 ml IV Total 8 ml Output Urine Total 2400 ml 3050 ml 9850 ml # Voids 8 # Bowel Movements 1 Exam General: Elderly man talkative in no acute distress HEENT: sclerae anicteric, oral mucosa moist Neck: JVP approximately 5 cm above the sternal notch Chest: Few bibasilar inspiratory crackles, no dullness Cardiac: S1S2, II/ systolic murmur at LSB, irregular Abdomen: BS normal, non-tender Extremities: 3+ pedal edema Neuro: A&O, cranial nerves symmetric, motor strength and coordination normal IVs and Medications Medications Reviewed: Medications were reviewed in detail Lab and Diagnostics Result Diagram: 05/04/16 1830 05/08/16 1245 X-Rays, CTs and MRIs PROCEDURE: X-RAY CHEST ONE VIEW, PORTABLE ([id number]) IMPRESSION: Persistent right upper lobe opacity, unchanged.. Dictated by: Emily Donis M.D. on 05/04/2016 at 18:48 . 12-lead ECG 05/05/16 09:04 - atrial fibrillation rate 80. QTC 492. Occasional PVC lateral T -wave inversions I, aVR, V3-V6 Assessment & Plan 86 yo with Chronic right sided heart failure with recent exacerbation, Pulmonary hypertension, Chronic Atrial fibrillation, and Coronary artery disease who presents to [facility] emergency department due to increasing dyspnea on exertion as well as increasing leg swelling Acute and/or high-risk conditions: #. Acute on Chronic right-sided Heart failure with anasarca. He also experiences PND, possibly related to diastolic dysfunction from atrial fibrillation or pulmonary hypertension. Recent 9 pound weight gain. Trigger unclear but may be due to inadequate diuretic dosing due to worsening renal function. After initial diuretic resistance, he demonstrated some response to high-dose Lasix plus metolazone. Recent echo suggests only mild systolic heart failure but moderate to severe pulmonary hypertension. Cardiology consult recommended evaluation for cirrhosis. Recent abdominal ultrasound 03/2016 shows normal sized liver, with increased echogenicity. Current lab tests do not suggest significant cirrhosis. - Increase diuretic therapy with Lasix 120 mg IV bid with metolazone 5 mg, titrate to weight and urine output - Discontinue Metolazone and initiate low-dose spironolactone - Plan to discharge home with previous prescription of torsemide 60 every morning and 40 every afternoon #. 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 Present on admission serum creatinine 3.16. Baseline creatinine over past 2 months has ranged from 1.8-3.9, during the course of 2 hospitalizations. Serum creatinine has declined to 2.08 despite aggressive diuresis coming suggesting that this is cardiogenic azotemia. Chronic kidney disease related to cardiorenal syndrome, Hypertensive Nephrosclerosis and Diabetic Nephropathy. Nephrology Dr Banks had seen patient during last admission - avoid nephrotoxic insults - monitor urine output - Daily BMP # Chronic Atrial fibrillation. No warfarin. No evidence of rapid ventricular response during this hospitalization. Heart rate 80s. rate controlled currently but patient stopped his Metoprolol recently on his own due to low BP at home - monitor on telemetry -Currently he is not requiring Metoprolol for rate control #. Diabetes mellitus Type 2. Now showing good fasting a.m. glucose on 20 units Lantus at bedtime, but daytime hyperglycemia. He is usually on metformin 500 mg a day which is probably maximal dose in light of his renal failure, but he seems to tolerate this well. May need daytime insulin. - Increase correction Lispro algorithm - holding Metformin Plans and goals of care. Patient has had frequent recent admissions for poorly controlled severe heart failure with associated chronic kidney disease and cirrhosis, but does not seem bothered by this. - Palliative care consult performed at patient is not interested in reducing intensity of care Resolving, stable and/or chronic conditions: #. Elevated troponin. This appears to be chronic and associated with CKD. - No cardiac intervention #. Chronic anemia likely secondary to chronic kidney disease - No clinical evidence of GI bleeding - Defer anemia workup to outpatient setting #. Cirrhosis with Thrombocytopenia, present on admission - Ultrasound demonstrating heterogeneously increased echo texture suspicious for chronic liver disease such as passive congestion, hepatitis, early cirrhosis. No ascites. No stigmata of portal hypertension. - he reported having a biopsy that showed cirrhosis with prior history of consistent alcohol intake in the past - Loop diuretic plus spironolactone #. COPD with Chronic respiratory failure No evidence of acute exacerbation without any coughing or sputum changes - continue oxygen supplementation (2 L) - no indications for steroids or antibiotics - Acetaminophen as needed for mild pain/fever/headache - Bowel regimen as needed - Antiemetic as needed Disposition: Likely to discharge home on torsemide plus spironolactone on 05/09 . VTE Prophylaxis: Sub-Q Heparin (Unfractionated) Resuscitation Status: DNR/DNI:Do Not Resuscitate/Intubate Time spent 35 minutes Sp Wallace MD May 08, 2016 14:21
[2016-05-08] MEDS ORDERED: Potassium Chloride Inj 20 MEQ in Dextrose 5% 250 ML IV ONE ×2 (14:25→14:35)
--- NOTE | 2016-05-08 14:52 | CONS ---
[address] [address] CONSULTATION REPORT PATIENT: XIOMARA CONNORS : 1930 MR#: [id number] ADMIT: 05/04/2016 JOB ID: [id number] DATE OF SERVICE: 05/08/2016 REASON FOR EVALUATION: Congestive heart failure. HISTORY: The patient is a pleasant 86-year-old male with history of diabetes, hypertension, and prior smoker. The patient has a history of heavy drinking in the past. He has documented coronary artery disease for at least 30 years. He had his first heart attack when he was 46 years old. He underwent coronary artery bypass surgery in 1982 followed by a redo bypass surgery x6 in January of 1993 in [place], utilizing saphenous vein graft to the right posterior descending, saphenous vein graft to the right coronary artery, sequential saphenous vein graft to obtuse marginal branch, and sequential vein graft to the LAD and diagonal branch. His regular environmental director is Dr. Poe. The patient was in his usual state of health until five months ago. Back in October of last year, he was able to move furniture into his new model home by the [address] He could perform any activity he likes at that time. Then, he noticed that his right leg became swollen followed by the left leg and then moved up to his thigh and into his scrotum, his penis, and his belly became distended. He became more out of breath and currently could walk only 20 feet before he gets out of breath. This is the third admission in the past two months with the diagnosis of "congestive heart failure." The patient has history of chronic atrial fibrillation. He was on warfarin and Pradaxa in the past. He has history of bleeding in his head and required divya hole. He also had bleeding into his lungs, and Pradaxa was discontinued. He has been on aspirin ever since. PAST MEDICAL HISTORY: 1. Cardiac history as outlined above. 2. Chronic atrial fibrillation, not on chronic anticoagulation due to history of subdural hematoma and bleeding into his lungs. 3. Diabetes mellitus. 4. Hypertension. 5. Chronic kidney disease, stage 3-4. 6. Cirrhosis of the liver. CURRENT MEDICATION: Reviewed. ALLERGIES: No known allergies. SOCIAL HISTORY: The patient lives by himself in a motor [place] [address] He used to smoke a pipe and cigarettes for 50 years. He started smoking when he was 14 years old and quit in 1992. He used to drink a martini every day for 40-50 years. He quit drinking one or two years ago. FAMILY HISTORY: His father from heart attack at age 56. REVIEW OF SYSTEMS: All 10 systems are reviewed and pertinent for having dry mouth. He does not know whether he snores. He denies chest discomfort or heavy pressure. PHYSICAL EXAMINATION: Reveals a pleasant elderly male appearing in no acute distress. Temperature is 36.5. Blood pressure is 127/67. Pulse 83. Body weight is 96 kg. Head and face have normal configuration. Nonicteric sclerae. Moist mucosa. Upper plate denture. Neck: JVP is 7 cm. Chest: Normal expansion. Lungs are clear to auscultation. Heart: The first heart sound is diminished. Second heart sound is normal. Grade 2/6 holosystolic murmur at the left lower sternal border. Abdomen distended. Bowel sounds diminished. Extremities: 4+ pitting edema bilateral up to the thigh level. Hyperpigmentation of the skin. Neurologic: Grossly intact. DIAGNOSTIC DATA: Blood tests show hemoglobin 8.3, WBC 5.8, platelets 128. Sodium 134, potassium 3.2, chloride 94, bicarb 23, BUN 73, creatinine 2.08. Estimated GFR 32, glucose 94. Cholesterol 113, triglycerides 64, HDL 51, LDL 49. Echocardiogram showed normal left ventricular size with ejection fraction 45%. Evidence of old antral apical infarct. Mildly dilated right ventricle with mild to moderately reduced systolic function. Severely dilated left atrium. Mild mitral regurgitation. Moderate to severe tricuspid regurgitation. Estimated right ventricular systolic pressure of 66 mmHg. Moderate abdominal ascites noted. IMPRESSION: 1. Volume overload. 2. Ischemic cardiomyopathy with ejection fraction 45% with evidence of old anteroapical infarct. 3. Status post coronary artery bypass surgery in 1982 and redo bypass surgery x6 in 1992. 4. Cirrhosis of the liver. 5. Chronic kidney disease, stage 3-4. 6. Diabetes mellitus. 7. Hypertension. 8. History of smoking for 50 years. 9. History of drinking for 40-50 years. 10. Severe pulmonary hypertension. PLAN: I do not believe that the cause of his fluid retention is due to congestive heart failure, as his EF has remained stable at 45%. I also do not believe that his chronic kidney disease is the main cause of his fluid retention. I suspect that this has to do with his liver. He could have alcoholic liver cirrhosis or less likely from longstanding severe pulmonary hypertension caused moderate to severe tricuspid regurgitation and congested liver. I suspect that the patient will respond better with spironolactone. I would request a GI consultation.
--- NOTE | 2016-05-08 15:25 | NUR ---
Social Work: Continued Discharge Planning D: Pt discussed in am rounds. pt is not medically stable for discharge at this time and continues to be diuresed. Pt has been ambulating I during admission. [facility] met with pt at bedside to discuss discharge planning and confirm plan. Pt was very defensive toward [employer] [facility] during initial visit, stating "you guys don't need to be meddling in my private affairs. You talk to me like a 11 year old boy." Through much reflective listening and affirmation, [facility] [facility] was able to gather the following information in regards to pt's discharge plan. Pt lives in a motor home, alone. He considers himself to be "completely independent" and does not reference using any DME. Pt states his brother and [employer] will be transporting him home when ready and identifies no discharge services that could be of help to him to avoid readmission. A: Pt who is I at baseline and values his privacy. Pt provided with [employer] [facility] contact information and encouraged to contact [facility] if needs arise. Pt requested that [facility] [facility] not return unless specifically requested by pt. [facility] [facility] agreed and stated that [facility] [facility] would only return if requested by pt or MD. Pt states that he agrees with this. P: Anticipate pt to discharge home with no sw needs; pt's brother to transport him home. [facility] [facility] to continue to follow. JANICE Jackson
--- NOTE | 2016-05-08 17:10 | DRSVH ---
PROCEDURE: CT CHEST, ABDOMEN AND PELVIS WITHOUT CONTRAST ([id number]) INDICATIONS: possible pulmonary mass TECHNIQUE: After the administration of oral contrast, 5 mm thick sections acquired from the lung apices to the s ymphysis pubis. 5 mm thick coronal and sagittal reformats acquired, with additional 7 mm coronal MIP reformats through the lungs. For radiation dose reduction, the following was used: automated expos ure control, adjustment of mA and/or kV according to patient size. COMPARISON: [facility], CT, CHEST/ABDOMEN WITH CONTRAST, 01/30/2015, 9:56. [facility], CT , THORAX WITHOUT CONTRAST, 08/21/2015, 15:06. FINDINGS: Image quality: Excellent. CHEST: Lungs and pleura: There is severe centrilobular emphysema. Patchy wedge-shaped consolidation is prese nt within the right upper lobe. This has a more consolidated appearance than on the comparison CT of the chest dated 08/21/15. A 2.1 x 2.1 cm spiculated mass within the superior segment of the right uppe r lobe is similar in size and appearance to the prior study (series 3, image 32), and appears more co nspicuous than on the study dated 01/30/15. There is a small low-density pleural effusion. There is a trace left low-density pleural effusion. Mediastinum: Heart size is normal. No pericardial effusion there are multiple enlarged mediastinal lymph nodes. These have increased in size when compared with the study dated 08/21/15. For example, a subcarinal lymph node now measures 2.1 cm in diameter and previously measured 1.9 cm in diameter, and a precarinal lymph node now measures 1.8 cm in diameter and previously measured 1.6 cm in diameter. Thoracic aorta and central pulmonary arteries are normal in size. Scattered atheromatous calcificatio ns are present within the aortic arch. Esophagus is normal in caliber. No hiatal hernia. Chest wall: Patient is status post median sternotomy. No axillary or supraclavicular adenopathy by si ze criteria. Thyroid gland is unremarkable. ABDOMEN: Solid organs: Diminutive nodular appearance suggesting cirrhotic transformation. The spleen is unrema rkable. Gallbladder is surgically absent. Pancreas is normal in contours. No adrenal nodules. Both kidneys are normal in size, without hydronephrosis or nephrolithiasis. There is a moderate amount of low-density perihepatic ascites. Peritoneum and bowel: Small and large bowel loops are normal in caliber and wall thickness. The appe ndix is thin walled and gas filled. There are scattered sigmoid diverticula. No evidence for diverti culitis. There is a moderate amount of abdominopelvic ascites. Nodes and vessels: No retroperitoneal or mesenteric adenopathy by size criteria. 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 The aortic sac measures 7.5 x 6.6 cm. The sac previously measured 6.9 x 6.7 cm in th e same plane on the comparison study dated 01/30/15. Miscellaneous: No ventral hernias. PELVIS: Genitourinary: There is focal wall thickening along the right dome of the bladder. Miscellaneous: No inguinal hernias or adenopathy. Bones: A severe wedge compression deformity is redemonstrated at L1, unchanged. Compression deformiti es at L3 and L4 are unchanged when compared with the study dated 02/07/15. No new wedge compression d eformities. Severe degenerative changes are present throughout the lumbar spine. IMPRESSION: 1. Wedge-shaped consolidation within the right upper lobe. This is present on CTs of the chest from and 2015; however this has a more consolidated appearance on the current study. It is unclear whe ther this represents superimposed infection, or indolent slowly progressing neoplasm. CT guided biops y of this region could be considered; however please note severe emphysematous changes increased the risk of a resultant pneumothorax. PET/CT may also be helpful to further characterize this finding if clinically indicated. 2. Right lower lobe spiculated mass which appears increased in conspicuity when compared with the dereck dy from 01/30/15 and similar in appearance to the study dated 08/21/15. 3. Stable small right effusion and new, trace left effusion. 4. Mediastinal adenopathy. The size of the enlarged lymph nodes have slightly increased when compared with the study dated 08/21/15. 5. Moderate amount of abdominopelvic ascites and nodular, diminutive appearance of the liver raising the suspicion for cirrhotic transformation and portal hypertension. 6. 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 If there is clinical suspicion for endoleak, CTA of t he endograft is recommended. Dictated by: Alla Heck M.D. on 05/08/2016 at 16:46 Approved by: Alla Heck M.D. on 05/08/2016 at 17:03
--- NOTE | 2016-05-08 17:32 | NUR ---
Activity/Resp/CT Patient a/o x 3, up indep in room, sob with activity. Patient denies pain or nausea, taking diet well. VSS, tele A fib. BLE edema from knees down. Lungs clear bilat diminished in bases. Patient down for CT scan this afternoon, results pending.
[2016-05-08] MEDS ORDERED: Furosemide 10 mg/mL 4 mL Inj IVPUSH SCH (18:00)
[2016-05-08] MEDS: Potassium Chloride 20 mEq SR Tablet PO SCH (22:34)
[2016-05-08] MEDS: Insulin GLARgine 100 Unit/mL Syringe SUBQ SCH (22:35)
[2016-05-09] VITALS (7 sets, daily range): BP systolic 112–135; BP diastolic 63–80; PULSE 65–87; RESP 14–20; O2SAT 87–96
[2016-05-09] MEDS: Heparin 5,000 Unit/mL Inj SUBQ SCH ×2 (00:30→08:30)
[2016-05-09] MEDS: Sodium Chloride LOK Flush 10 mL Syringe IVFLUSH SCH ×2 (01:00→08:33)
--- NOTE | 2016-05-09 07:41 | NUR ---
Respiratory Pt has 2L NC at bedside for PRN usage. Pt denies SOB at this time while lying in the bed and says walking to the bathroom does not cause SOB but if pt were to walk down the cast[place] he would get SOB and have to sit down at some point to catch breath. Currently pt is on RA with SpO2 >92%.
[2016-05-09] MEDS: Insulin LISPRO 300 Unit/3 mL Inj SUBQ SCH ×2 (08:00→12:00)
[2016-05-09] MEDS: Potassium Chloride 20 mEq SR Tablet PO SCH (08:32)
[2016-05-09] MEDS: Senna-Docusate 8.6-50 mg Tablet PO PRN (08:32)
--- NOTE | 2016-05-09 12:28 | NUR ---
JOSE RAMON JOSE RAMON signed
--- NOTE | 2016-05-09 14:18 | PCM.DIMED ---
Discharge Instructions Date of Service May 09, 2016 Dates of Hospitalization May 04, 2016 at 20:03 Discharge Diagnosis Discharge Diagnosis #. Acute on Chronic right-sided Heart failure with anasarca. Improved. #. 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 Improved. # Chronic Atrial fibrillation. No warfarin. #. Diabetes mellitus Type 2. #. Elevated troponin. This appears to be chronic and associated with CKD. #. Chronic anemia likely secondary to chronic kidney disease #. Cirrhosis with Thrombocytopenia. #. COPD with Chronic hypoxic respiratory failure Diet Heart Healthy Activity Limited until seen by PCP Call your provider Fever or Chills, Shortness of breath, Chest pain Patient Instructions Follow-up Provider: Lam Duron MD Follow-up with PCP in: 2 weeks Jonah Lang MD May 09, 2016 14:17
[2016-05-09] MEDS ORDERED: SPIR25TA PO (14:20)
[2016-05-09] MEDS ORDERED: POTA20TA16 PO (14:20)
--- NOTE | 2016-05-09 16:18 | NUR ---
Discharge note Patient a/o x 3, up indep in room steady gait. Lungs with crackles in the bases. Bilat LE with pitting edema 2-3 +. Patient encouraged to elevate legs when sitting. VSS, tele A fib. IV SL and tele removed intact. Patient given discharge instructions, medication reconciliation, info on diagnosis and new prescriptions. All questions answered. Wallet and knife returned to patient. Patient taken to car via wheelchair with all belongings and discharged home with family.
--- NOTE | 2016-05-14 18:17 | PCM.DC.MED ---
Discharge Summary Date of Service May 09, 2016 Dates of Hospitalization Date of Hospital Admission May 04, 2016 at 20:03 Date of Discharge: May 09, 2016 Providers: Admitting Physician: Federico Joiner MD Primary Care Physician: Lam Duron MD Attending Physician: Federico Joiner MD Diagnosis at Time of Discharge Diagnosis at Time of Discharge #. Acute on Chronic right-sided Heart failure with anasarca. Improved. #. 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 Improved. # Chronic Atrial fibrillation. No warfarin. #. Diabetes mellitus Type 2. #. Elevated troponin. This appears to be chronic and associated with CKD. #. Chronic anemia likely secondary to chronic kidney disease #. Cirrhosis with Thrombocytopenia. #. COPD with Chronic hypoxic respiratory failure Consultations Cardiology, Dr Sepulveda Palliative medicine, Dr Neves Procedures XRay, CTs & MRIs PROCEDURE: X-RAY CHEST ONE VIEW, PORTABLE ([id number]) IMPRESSION: Persistent right upper lobe opacity, unchanged.. Dictated by: Emily Donis M.D. on 05/04/2016 at 18:48 . ECG 12 Lead 05/05/16 09:04 - atrial fibrillation rate 80. QTC 492. Occasional PVC lateral T -wave inversions I, aVR, V3-V6 Cardiac Echo Impression Interpretation Summary The left ventricle is normal in size. Left ventricular systolic function is mildly reduced. The ejection fraction is estimated to be 45-50%. There has been no significant change since the previous study. Septal motion is consistent with conduction abnormality. There is apical septal wall akinesis. There is apical inferior wall akinesis. There is mid inferior wall hypokinesis. The right ventricle is mildly dilated. Right ventricular systolic function is mild to moderately reduced. There has been no significant change since the previous exam. The right ventricular systolic pressure is estimated at 66 mmHg assuming a right atrial pressure of 15 mm Hg. Compared to the prior echo exam, there has been an increase in the severity of pulmonary hypertension. The left atrium is severely dilated. The right atrium is mildly dilated. There is mild mitral regurgitation. There is moderate to severe tricuspid regurgitation. Compared to the prior echo exam, there has been no change in TR severity. The aortic root is mildly dilated. The ascending aorta is at the upper limits of normal in size. Moderate abdominal ascites noted. Invasive Procedures None Brief History Jerry Jones is a 86 yo with Chronic systolic heart failure with recent exacerbation, Chronic Atrial fibrillation, Pulmonary hypertension and Coronary artery disease who presents to [facility] emergency department due to increasing dyspnea on exertion as well as increasing leg swelling Patient has noticed increasing leg swelling as well as scrotal swelling in the last few days. He followed instructions to titrate up the dose of his Torsemide but did not see any improvement. He has also noticed dyspnea on exertion with Orthopnea. He denies any coughing, fever or chills. Denies any urinary symptoms such as dysuria or frequency. He denies any chest pain. He is compliant with medications and dietary restrictions. He has multiple organ dysfunction including renal failure, cirrhosis, Chronic heart failure with poor EF and Pulmonary hypertension. Still lives independently and able to perform activity of daily living. Patient was treated for Urinary tract infections and completes antibiotics. Recent follow up with Dr Patel (Urology) everything stable from their perspective Case discussed with Dr Valerio, diuretics initiated wit plans to admit for further management Hospital Course 86 yo with Chronic right sided heart failure with recent exacerbation, Pulmonary hypertension, Chronic Atrial fibrillation, and Coronary artery disease who presents to [facility] emergency department due to increasing dyspnea on exertion as well as increasing leg swelling Acute and/or high-risk conditions: #. Acute on Chronic right-sided Heart failure with anasarca. He also experiences PND, possibly related to diastolic dysfunction from atrial fibrillation or pulmonary hypertension. Recent 9 pound weight gain. Trigger unclear but may be due to inadequate diuretic dosing due to worsening renal function. After initial diuretic resistance, he demonstrated some response to high-dose Lasix plus metolazone. Recent echo suggests only mild systolic heart failure but moderate to severe pulmonary hypertension. Cardiology consult recommended evaluation for cirrhosis. Recent abdominal ultrasound 03/2016 shows normal sized liver, with increased echogenicity. Current lab tests do not suggest significant cirrhosis. - Increase diuretic therapy with Lasix 120 mg IV bid with metolazone 5 mg, titrate to weight and urine output - Discontinue Metolazone and initiate low-dose spironolactone - Plan to discharge home with previous prescription of torsemide 60 every morning and 40 every afternoon #. 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 Present on admission serum creatinine 3.16. Baseline creatinine over past 2 months has ranged from 1.8-3.9, during the course of 2 hospitalizations. Serum creatinine has declined to 2.08 despite aggressive diuresis coming suggesting that this is cardiogenic azotemia. Chronic kidney disease related to cardiorenal syndrome, Hypertensive Nephrosclerosis and Diabetic Nephropathy. Nephrology Dr Banks had seen patient during last admission - avoid nephrotoxic insults - monitor urine output - Daily BMP # Chronic Atrial fibrillation. No warfarin. No evidence of rapid ventricular response during this hospitalization. Heart rate 80s. rate controlled currently but patient stopped his Metoprolol recently on his own due to low BP at home - monitor on telemetry -Currently he is not requiring Metoprolol for rate control #. Diabetes mellitus Type 2. Now showing good fasting a.m. glucose on 20 units Lantus at bedtime, but daytime hyperglycemia. He is usually on metformin 500 mg a day which is probably maximal dose in light of his renal failure, but he seems to tolerate this well. May need daytime insulin. - Increase correction Lispro algorithm - holding Metformin Plans and goals of care. Patient has had frequent recent admissions for poorly controlled severe heart failure with associated chronic kidney disease and cirrhosis, but does not seem bothered by this. - Palliative care consult performed at patient is not interested in reducing intensity of care Resolving, stable and/or chronic conditions: #. Elevated troponin. This appears to be chronic and associated with CKD. - No cardiac intervention #. Chronic anemia likely secondary to chronic kidney disease - No clinical evidence of GI bleeding - Defer anemia workup to outpatient setting #. Cirrhosis with Thrombocytopenia, present on admission - Ultrasound demonstrating heterogeneously increased echo texture suspicious for chronic liver disease such as passive congestion, hepatitis, early cirrhosis. No ascites. No stigmata of portal hypertension. - he reported having a biopsy that showed cirrhosis with prior history of consistent alcohol intake in the past - Loop diuretic plus spironolactone #. COPD with Chronic respiratory failure No evidence of acute exacerbation without any coughing or sputum changes - continue oxygen supplementation (2 L) - no indications for steroids or antibiotics - Acetaminophen as needed for mild pain/fever/headache - Bowel regimen as needed - Antiemetic as needed Hospital course: The patient was admitted for volume overload and acute renal failure. he was diuresed and improved clinically. Kidney function stabilized. . Exam Vital Signs (Last) Date Time Temp Pulse Resp B/P Pulse Ox O2 Delivery O2 Flow Rate FiO2 05/09/16 12:38 36.7 87 16 124/67 94 Room Air 05/09/16 05:47 1.50 Exam Patient seen and examined on the day of discharge Test 05/04/16 18:30 05/05/16 01:40 05/05/16 06:03 05/05/16 18:50 White Blood Count 5.8th/mm3 (3.8-10.1) Red Blood Count 3.20mil/mm3 (4.40-5.80) Hemoglobin 8.3g/dL (13.8-17.2) Hematocrit 28.5% (41.0-50.0) Mean Corpuscular Volume 89.1fL (81-100) Mean Corpuscular Hemoglobin 25.9pg (27.0-35.0) Mean Corpuscular Hemoglobin Concent 29.1% (32.0-37.0) Red Cell Distribution Width 18.7% (12.3-15.4) Platelet Count 128bil/L (150-400) Neutrophils (%) (Auto) 75.3% (40-74) Lymphocytes (%) (Auto) 13.5% (14-46) Monocytes (%) (Auto) 9.5% (4-12) Eosinophils (%) (Auto) 1.4% (0-5) Basophils (%) (Auto) 0.3% (0-3) Prothrombin Time 11.7sec (8.1-12.5) Prothromb Time International Ratio 1.09ratio Hemoglobin A1c 7.4% (4.8-5.6) Magnesium Level 2.8mg/dL (1.6-2.6) Total Bilirubin 1.1mg/dL (0.0-1.2) Aspartate Amino Transf (AST/SGOT) 35U/L (0-50) Alanine Aminotransferase (ALT/SGPT) 20U/L (0-44) Alkaline Phosphatase 110U/L (25-160) Total Protein 6.6g/dL (6.4-8.4) Albumin 4.0g/dL (3.4-5.0) Thyroid Stimulating Hormone (TSH) 5.270uIU/mL (0.450-4.500) Hold Davis Top Tube Received (Received) Urine Color Yellow (YELLOW) Urine Appearance Clear (CLEAR,HAZY) Urine pH 5.5 (5.0-8.0) Urine Specific [place] 1.010 (1.003-1.035) Urine Protein Negativemg/dL (NEG,TRACE) Urine Glucose (UA) Negativemg/dL (NEGATIVE) Urine Ketones Negativemg/dL (NEGATIVE) Urine Occult Blood Negative (NEGATIVE) Urine Nitrite Negative (NEGATIVE) Urine Bilirubin Negative (NEGATIVE) Urine Urobilinogen Normalmg/dL (NORMAL) Urine Leukocyte Esterase Negative (NEGATIVE) Urine RBC 0-2/hpf (0-2) Urine WBC 0-5/hpf (0-5) Urine Epithelial Cells Occasional/hpf (NONE-MOD) Urine Crystals None seen (NONE SEEN) Urine Bacteria None/hpf (NONE-FEW) Urine Hyaline Casts None/lpf (NONE) Urine Granular Casts None seen (NONE SEEN) Urine Waxy Casts None seen (NONE SEEN) Urine Red Blood Cell Casts None seen (NONE SEEN) Urine White Blood Cell Casts None seen (NONE SEEN) Urine Mucus None seen (None Seen) Urine Trichomonas None seen (NONE SEEN) Urine Yeast None (NONE SEEN) Urine Culture Reflexed Not indicated Triglycerides Level 64mg/dL (0-149) Cholesterol Level 113mg/dL (100-199) LDL Cholesterol, Calculated 49.200mg/dL (0-99) VLDL Cholesterol 12.800mg/dL HDL Cholesterol 51mg/dL (>39) Cholesterol/HDL Ratio 2.22 (0.0-4.4) Troponin T 0.082ug/L (0.0-0.011) Test 05/07/16 04:45 05/09/16 03:18 Pro-B-Type Natriuretic Peptide 4746pg/mL (0-486) Sodium Level 137mEq/L (134-144) Potassium Level 3.4mEq/L (3.5-5.2) Chloride Level 93mEq/L (97-108) Carbon Dioxide Level 28mmol/L (18-29) Blood Urea Nitrogen 79mg/dL (8-27) Creatinine 2.32mg/dL (0.76-1.27) Estimat Glomerular Filtration Rate 28mL/min (>59) Glucose Level 109mg/dL (60-99) Calcium Level 9.1mg/dL (8.5-10.1) Discharge Medications Discharge Medications Allopurinol (Allopurinol) 100 Mg Tablet 100 MG PO QAM (Reported) Arformoterol Tartrate (Brovana) 15 Mcg/2 Ml Vial.neb 15 MCG IH BID (Reported) Ascorbic Acid (Vitamin C) 500 Mg Capsule.er 500 MG PO QAM (Reported) Aspirin (Aspirin) 81 Mg Tablet 81 MG PO QAM (Reported) Atorvastatin Calcium (Atorvastatin Calcium) 20 Mg Tablet 20 MG PO HS (Reported) Brimonidine Tartrate (Brimonidine 0.2% Oph Soln) 5 Ml Drops 1 GTT LEFT_EYE TID ( Reported) Cider Vinegar (Apple Cider Vinegar) 600 Mg Capsule 600 MG PO DAILY (Reported) Cyanocobalamin (Vitamin B-12) (Vitamin B-12) 50 Mcg Tablet 100 MCG PO DAILY ( Reported) Dorzolamide (Dorzolamide) 10 Ml Drops 1 GTT BOTH_EYES BID (Reported) Fluticasone Propionate (Flovent HFA 220 mcg) 12 Gm Aer.w.adap 1 PUFF IH BID ( Reported) Fosinopril Sodium (Fosinopril Sodium) 20 Mg Tablet 10 MG PO HS (Reported) Latanoprost (Latanoprost) 2.5 Ml Drops 1 GTT BOTH_EYES HS (Reported) Metformin ER (Metformin ER) 500 Mg Tablet 500 MG PO QAM (Reported) Multivitamin (Multivitamins) 1 Each Capsule 1 EACH PO DAILY (Reported) Nitroglycerin 0.2 mg/hr Patch (Nitroglycerin 0.2 mg/hr Patch) 1 Each Patch 0.2 MG TRANSDERM QPM (Reported) APPLY AT 1900, OFF AT 7 AM Potassium Chloride (Potassium Chloride) 10 Meq Tab.er.prt 20 MEQ PO BIDWM ( Reported) TAKE WITH FOOD Potassium Chloride (Potassium Chloride) 20 Meq Tab.er.prt 20 MEQ PO BID Prescribed by: JONAH MCKEON MD Spironolactone (Aldactone) 25 Mg Tablet 25 MG PO DAILY Prescribed by: JONAH MCKEON MD Terazosin (Terazosin) 10 Mg Capsule 10 MG PO HS (Reported) Torsemide (Torsemide) 20 Mg Tablet 60 MG PO QAM (Reported) AT 0800. TAKE TORSEMIDE 60 MG IN AM, 40 MG IN AFTERNOON Torsemide (Torsemide) 20 Mg Tablet 40 MG PO QPM (Reported) AT 1500. TAKE TORSEMIDE 60 MG IN AM, 40 MG IN AFTERNOON. As needed Insulin Glargine (Lantus U100 Solostar Insulin Pen) 100 Unit/1 Ml Insuln.pen 12 UNIT SUBQ QAM PRN PRN blood sugar >150 (Reported) Levalbuterol HCl (Xopenex Concentrate) 1.25 Mg/0.5 Ml Vial.neb 1.25 MG IH BID PRN PRN For Shortness of Breath (Reported) Followup Plan Disposition: Home Discharge Diet: Heart Healthy Discharge Activity: Limited until seen by PCP Follow-up Provider: Lam Duron MD Follow-up with PCP in: 2 weeks Time spent 45 min Jonah Mckeon MD May 14, 2016 18:17
== END 2016-05-09 16:15 | disposition home or self-care (01) | DRG 292 ==
LOC: SED 17:54 → PCC 20:03
PROVIDERS: ADMIT Hospitalist; ATTEND Hospitalist
DX: I50.23 Acute on chronic systolic (congestive) heart failure (principal); J96.10 Chronic respiratory failure, unspecified whether with hypoxia or hypercapnia; N17.9 Acute kidney failure, unspecified; I12.9 Hypertensive chronic kidney disease with stage 1 through stage 4 chronic kidney disease, or unspecified chronic kidney disease; E11.22 Type 2 diabetes mellitus with diabetic chronic kidney disease; N18.3 Chronic kidney disease, stage 3 (moderate); I48.2 Chronic atrial fibrillation; D69.59 Other secondary thrombocytopenia; I25.5 Ischemic cardiomyopathy; J44.9 Chronic obstructive pulmonary disease, unspecified; I25.10 Atherosclerotic heart disease of native coronary artery without angina pectoris; I27.2 Other secondary pulmonary hypertension; I07.1 Rheumatic tricuspid insufficiency; Z66 Do not resuscitate; N40.1 Benign prostatic hyperplasia with lower urinary tract symptoms; R33.8 Other retention of urine; D63.1 Anemia in chronic kidney disease; M1A.9XX0 Chronic gout, unspecified, without tophus (tophi); Z79.4 Long term (current) use of insulin; Z79.82 Long term (current) use of aspirin; Z91.81 History of falling; Z98.61 Coronary angioplasty status; Z87.891 Personal history of nicotine dependence

== ENCOUNTER 2016-05-22 10:32 | Inpatient (IN) | payer MEDICARE, OTHER ==
[~2016-05-22] VITALS: Ht 182.9 cm; Wt 98.8 kg
[~2016-05-22 10:32] MED LIST changes: -AMOX500T2 PO; +CIDE600C PO; -COLC0.6C3 PO; -IPRA0.2S51 IH; -LIDO700A6 TP; -METO25TA3 PO; +POTA20TA16 PO; -SACC250C PO; +SPIR25TA PO; -TORS20TA PO; +TORS20TA3 PO
--- NOTE | 2016-05-22 10:40 | ED.REPORT ---
HPI-General Illness Date of Service May 22, 2016 ED Provider: Thang Peña DO The patient is an 86 year old male with history of congestive heart failure. COPD, coronary artery disease, emphysema, diabetes mellitus, hypertension, atrial fibrillation, and recent hospitalization for CHF with anasarca, who presents to the emergency department complaining of increased shortness of breath that worsened this morning. He is unable to complete his normal tasks due to his breathing. He has also noticed lower extremity swelling, penile swelling, and scrotal swelling. He was discharged from the hospital on May 09. He was doing okay until this morning. His symptoms are similar to when he was recently hospitalized. He denies fever, chills, chest pain, cough, sputum production or vomiting. Nursing Notes Stated Complaint: SOB/SWELLING LEGS/SHOULDER Nursing Notes Reviewed: Yes Allergies: Coded Allergies: No Known Allergies (Verified Allergy, Unknown, 05/22/16) Scheduled Allopurinol (Allopurinol) 100 Mg Tablet 100 MG PO QAM Arformoterol Tartrate (Brovana) 15 Mcg/2 Ml Vial.neb 15 MCG IH BID Ascorbic Acid (Vitamin C) 500 Mg Capsule.er 500 MG PO QAM Aspirin (Aspirin) 81 Mg Tablet 81 MG PO QAM Atorvastatin Calcium (Atorvastatin Calcium) 20 Mg Tablet 20 MG PO HS Brimonidine Tartrate (Brimonidine 0.2% Oph Soln) 5 Ml Drops 1 GTT LEFT_EYE TID Cider Vinegar (Apple Cider Vinegar) 600 Mg Capsule 600 MG PO DAILY Cyanocobalamin (Vitamin B-12) (Vitamin B-12) 50 Mcg Tablet 100 MCG PO DAILY Dorzolamide (Dorzolamide) 10 Ml Drops 1 GTT BOTH_EYES BID Fluticasone Propionate (Flovent HFA 220 mcg) 12 Gm Aer.w.adap 1 PUFF IH BID Fosinopril Sodium (Fosinopril Sodium) 20 Mg Tablet 10 MG PO HS Latanoprost (Latanoprost) 2.5 Ml Drops 1 GTT BOTH_EYES HS Metformin ER (Metformin ER) 500 Mg Tablet 500 MG PO QAM Multivitamin (Multivitamins) 1 Each Capsule 1 EACH PO DAILY Nitroglycerin 0.2 mg/hr Patch (Nitroglycerin 0.2 mg/hr Patch) 1 Each Patch 0.2 MG TRANSDERM QPM APPLY AT 1900, OFF AT 7 AM Potassium Chloride (Potassium Chloride) 10 Meq Tab.er.prt 20 MEQ PO BIDWM TAKE WITH FOOD Potassium Chloride (Potassium Chloride) 20 Meq Tab.er.prt 20 MEQ PO BID Spironolactone (Aldactone) 25 Mg Tablet 25 MG PO DAILY Terazosin (Terazosin) 10 Mg Capsule 10 MG PO HS Torsemide (Torsemide) 20 Mg Tablet 60 MG PO BID Scheduled PRN Insulin Glargine (Lantus U100 Solostar Insulin Pen) 100 Unit/1 Ml Insuln.pen 12 UNIT SUBQ QAM PRN PRN blood sugar >150 Levalbuterol HCl (Xopenex Concentrate) 1.25 Mg/0.5 Ml Vial.neb 1.25 MG IH BID PRN PRN For Shortness of Breath General Time Seen by MD: 10:39 Chief Complaint Other (swelling and shortness of breath) Hx Obtained From: Patient, Other family... Arrived By: Wheelchair Sudden in Onset?: Yes Onset Occurred: 5 - 8 hours ago Symptom Duration: Since onset Severity: Current: No pain currently Severity: Maximum: No pain Recent Healthcare: Recent doctor visit, Recent hospitalization Similar Sx Previous: Yes Past Medical History Past Medical History Notes: PCP: Dr. Yoo Past Medical History Emphysema CHF Atrial fibrillation Reports: COPD, Coronary artery disease, Diabetes mellitus, Hypertension Past Surgical History Abdominal aneurysm Popliteal Cyst removal Reports: CABG Family History Noncontributory Smoking History Former Smoker Social History Alcohol Use: "Social" Drug Use: Denies drug use Other Social History: Lives alone, Local resident Ambulatory Status Independent Review of Systems +penile swelling Full Review of Systems Constitutional: Denies: Chills, Fever Respiratory: Reports: Shortness of breath, Denies: Non-productive cough, Prod cough, bloody, Prod cough, brown, Prod cough, clear, Prod cough, green, Prod cough, white, Prod cough, yellow Cardiovascular: Denies: Chest pain GI: Denies: Vomiting Male: Reports Scrotal swelling, Reports Testicular swelling Musculoskeletal: Reports: Extremity swelling Complete sys rev & neg: except as marked. Physical Exam Vital Signs Vital Signs Date Time Temp Pulse Resp B/P Pulse Ox O2 Delivery O2 Flow Rate FiO2 05/22/16 10:46 36.9 91 14 130/65 98 Room Air Initial VS: Reviewed Head / Eyes: Atraumatic, Normocephalic, PERRL ENT: Mucous membranes moist, Conjunctiva normal, No scleral icterus Extremities: Vascular intact, Neuro intact Skin: Warm, Dry, No cyanosis Neurologic: Alert, Oriented, Nonfocal Psychiatric: Mood/affect normal, Behavior normal, Normal thought content General/Constitutional: Awake, Alert, Cooperative Neck: No midline vertebral tend Neck Vascular: Positive: JVD moderate Respiratory / Chest: Breath sounds NL, Breath sounds = bilat, No respiratory distress, No rales, No rhonchi, No wheezing, No retractions Cardiovascular: Heart rate NL, Regular rhythm, Heart sounds NL, No gallop, No murmurs, No rubs Abdomen: Non-tender Bowel Sounds / Distention: Positive: Distention moderate Lower Extremity / Pelvis / MS: Neurologic intact Lower extremity edema with anasarca : swollen penis and scrotum, no erythema or warmth. Interpretation & Diagnostics Interpretation & Diagnostics: Abdominal US IMPRESSION: Moderate amount of ascites. Paracentesis site is marked on skin. Dictated by: Emilia Gonzalez M.D. on 05/22/2016 at 13:59 Lab Results Interpretation Result Diagram: 05/22/16 1030 05/22/16 1030 Test 05/22/16 10:30 05/22/16 12:52 05/22/16 13:02 White Blood Count 5.6th/mm3 (3.8-10.1) Red Blood Count 3.12mil/mm3 (4.40-5.80) Hemoglobin 7.9g/dL (13.8-17.2) Hematocrit 27.1% (41.0-50.0) Mean Corpuscular Volume 86.9fL (81-100) Mean Corpuscular Hemoglobin 25.3pg (27.0-35.0) Mean Corpuscular Hemoglobin Concent 29.2% (32.0-37.0) Red Cell Distribution Width 19.1% (12.3-15.4) Platelet Count 103bil/L (150-400) Neutrophils (%) (Auto) 81.6% (40-74) Lymphocytes (%) (Auto) 9.9% (14-46) Monocytes (%) (Auto) 7.7% (4-12) Eosinophils (%) (Auto) 0.4% (0-5) Basophils (%) (Auto) 0.2% (0-3) Prothrombin Time 12.4sec (8.1-12.5) Prothromb Time International Ratio 1.16ratio Sodium Level 132mEq/L (134-144) Potassium Level 6.0mEq/L (3.5-5.2) Chloride Level 94mEq/L (97-108) Carbon Dioxide Level 18mmol/L (18-29) Blood Urea Nitrogen 116mg/dL (8-27) Creatinine 4.86mg/dL (0.76-1.27) Estimat Glomerular Filtration Rate 12mL/min (>59) Glucose Level 260mg/dL (60-99) Calcium Level 8.8mg/dL (8.5-10.1) Magnesium Level 2.8mg/dL (1.6-2.6) Total Bilirubin 1.1mg/dL (0.0-1.2) Aspartate Amino Transf (AST/SGOT) 29U/L (0-50) Alanine Aminotransferase (ALT/SGPT) 17U/L (0-44) Alkaline Phosphatase 95U/L (25-160) Troponin T 0.172ug/L (0.0-0.011) Pro-B-Type Natriuretic Peptide 7774pg/mL (0-486) Total Protein 6.3g/dL (6.4-8.4) Albumin 3.8g/dL (3.4-5.0) Hold Urine Received (Received) Urine Color Yellow (YELLOW) Urine Appearance Clear (CLEAR,HAZY) Urine pH 6.5 (5.0-8.0) Urine Specific [place] 1.005 (1.003-1.035) Urine Protein Negativemg/dL (NEG,TRACE) Urine Glucose (UA) Negativemg/dL (NEGATIVE) Urine Ketones Negativemg/dL (NEGATIVE) Urine Occult Blood Negative (NEGATIVE) Urine Nitrite Negative (NEGATIVE) Urine Bilirubin Negative (NEGATIVE) Urine Urobilinogen Normalmg/dL (NORMAL) Urine Leukocyte Esterase Negative (NEGATIVE) Urine RBC 0-2/hpf (0-2) Urine WBC 0-5/hpf (0-5) Urine Epithelial Cells Occasional/hpf (NONE-MOD) Urine Crystals None seen (NONE SEEN) Urine Bacteria None/hpf (NONE-FEW) Urine Hyaline Casts None/lpf (NONE) Urine Granular Casts None seen (NONE SEEN) Urine Waxy Casts None seen (NONE SEEN) Urine Red Blood Cell Casts None seen (NONE SEEN) Urine White Blood Cell Casts None seen (NONE SEEN) Urine Mucus None seen (None Seen) Urine Trichomonas None seen (NONE SEEN) Urine Yeast None (NONE SEEN) Urinalysis Comment None Urine Culture Reflexed Not indicated ECG Interpretation ECG Interpretation: Sinus rhythm IVCD No change from prior Time: 11:23 Interpreted by: ED physician X-Ray Chest Interpretation Chest Xray Interpretation: IMPRESSION: 1. Persistent masslike opacity in right upper lobe. Differential diagnoses include pneumonia versus neoplasm. If clinically indicated, PET CT may be helpful for further evaluation. Dictated by: Emilia Gonzalez M.D. on 05/22/2016 at 11:33 Interpretation / Wet Read by: Interpret - Radiologist Procedures PROCEDURE: Paracentesis TIME: 1400 NOTES: Consent was obtained. The patient was given the risks, including intestinal puncture, bleeding, and infection. The patient's abdominal compartment was visualized using ultrasound and a fluid pocket large enough to be drained was localized on the left lower abdominal quadrant. This area was marked. Sterile drape was placed over the site. The site was prepped with chlorhexidine. The site was anesthetized with 1 % lidocaine making a wheel in the subcutaneous tissue and advancing the needle into the abdominal cavity while applying traction against the syringe until blood tinged fluid was obtained. An 11 blade scalpel was used to trinh the skin for the catheter. The paracentesis catheter was then advanced through the skin into the abdominal cavity while the catheter needle was withdrawn and the catheter advanced. Approximately 50mL of blood tinged fluid was obtained for labs and culture. The catheter was then connected to suction tubing and approximately 5400mL of fluid was obtained. The catheter was then clamped and withdrawn. Direct pressure was then held over the paracentesis site until all bleeding was stopped. The patient tolerated the procedure well and there were no immediate complications. Total blood loss was less than 3mL. Re-Eval/Medical Decision Source of Hx: Old records, Family Time of Eval: 12:39 Re-Evaluation/Progress Note: Rechecked the patient. Discussed plan for admission. All questions were addressed. Consultation #1: Referral / Consult Name: Refugio Sprague DO Consulted With: Nephrology Call Returned at: 12:47 Data Scientist: Agrees with eval, Agrees with plan Consultation #2: Referral / Consult Name: Rocael Spicer MD Consulted With: Hospitalist Call Returned at: 13:02 Data Scientist: Will see patient, Agrees with eval, Agrees with plan, Accepts admit Note: She will order a paracentesis and wants a bladder scan. Consultation #3: Referral / Consult Name: Refugio Sprague DO Call Returned at: 13:23 Note: After evaluating the patient, Dr. Sprague would like the patient to have a paracentesis in the emergency department or by radiology. He would also like all IVF discontinued and given him 80 mg Lasix. Counseled Regarding: Diagnosis, Lab results, Need for admission Discharge & Departure Primary Impression: Anasarca Disposition: ADMITTED TO HOSPITAL Discharge Condition All VS Reviewed: Yes Condition: Stable Referrals: Lam Duron MD (PCP) Ellenibe Attestation Portions of this note were transcribed by Nina Santos. I, Dr. Peña personally performed the history, physical exam and medical decision-making; I reviewed and confirmed the accuracy of the information in the transcribed note. Signed by: Khoa Obrien, 05/22/2016 at 1501. copies to: Lam Duron MD, Timothy S DO May 22, 2016 10:40 Nina Santos May 22, 2016 10:48
[2016-05-22 10:46] VITALS: BP 130/65; PULSE 91; RESP 14; O2SAT 98
[2016-05-22 11:06] LABS: BASOPHILS % (AUTO) 0.2 % (0-3); EOSINOPHILS % (AUTO) 0.4 % (0-5); MONOCYTES % (AUTO) 7.7 % (4-12); Mean Corpuscular Hemoglobin 25.3 pg (27.0-35.0); Mean Corpuscular Volume 86.9 fL (81-100); NEUTROPHILS % (AUTO) 81.6 % (40-74); Platelet Count 103 bil/L (150-400)
[2016-05-22 11:21] LABS: INR 1.16 ratio
--- NOTE | 2016-05-22 11:39 | DRSVH ---
PROCEDURE: X-RAY CHEST ONE VIEW, PORTABLE ([id number]) INDICATIONS: dyspnea TECHNIQUE: One view of the chest was acquired. COMPARISON: [facility], CR, CHEST 1 VIEW, 04/26/2015, 14:39. [facility], CR, XR ROSALIA ST 1VW (PORTABLE), 03/27/2016, 4:35. [facility], CT, THORAX WITHOUT CONTRAST, 08/21/2015, 15:06. [facility], CT, CT CHEST ABD PELVIS WO CON, 05/08/2016, 16:40. [facility], C R, XR CHEST 1VW (PORTABLE), 05/04/2016, 18:26. FINDINGS: Surgical changes and devices: Sternotomy and CPT. Lungs and pleura: There is persistent masslike opacity in the right upper lobe. No pleural effusions or pneumothorax. Lungs are clear. Mediastinum: Mediastinal contours appear normal. Heart size is normal. Extensive atherosclerosis. Bones and chest wall: There are multiple old right fractures. Overlying soft tissues appear unremark able. IMPRESSION: 1. Persistent masslike opacity in right upper lobe. Differential diagnoses include pneumonia versus n eoplasm. If clinically indicated, PET CT may be helpful for further evaluation. Dictated by: Emilia Gonzalez M.D. on 05/22/2016 at 11:33 Approved by: Emilia Gonzalez M.D. on 05/22/2016 at 11:36
[2016-05-22 11:48] LABS: Magnesium 2.8 mg/dL (1.6-2.6)
[2016-05-22 12:27] LABS: TROPONIN T 0.172 ug/L (0.0-0.011)
[2016-05-22] MEDS ORDERED: 0.9% Sodium Chloride 1,000 ML IV ONE (13:00)
[2016-05-22] MEDS ORDERED: Calcium GLUCOnate 10% (Gm) 1 Gm/10 mL Inj IVPUSH ONE (13:00)
[2016-05-22] MEDS ORDERED: Furosemide 10 mg/mL 10 mL Inj IVPUSH ONE (13:25)
[2016-05-22 13:42] VITALS: BP 114/76; PULSE 88; RESP 14; O2SAT 97
[2016-05-22 13:48] LABS: APPEARANCE,URINE CLEAR (CLEAR,HAZY); COLOR,URINE YELLOW (YELLOW); OCCULT BLOOD,URINE NEGATIVE (NEGATIVE); PH,URINE 6.5 (5.0-8.0); UROBILINOGEN,URINE NORMAL (NORMAL)
--- NOTE | 2016-05-22 14:03 | DRSVH ---
PROCEDURE: US ABDOMEN, LIMITED ([id number]) INDICATIONS: assess enough fluid for paracentesis, inform IR do TECHNIQUE: Real-time focused scanning was performed of the abdomen, with image documentation. COMPARISON: [facility], CT, CT CHEST ABD PELVIS WO CON, 05/08/2016, 16:40. FINDINGS: There is moderate amount of ascites in all 4 quadrants of the abdomen. IMPRESSION: Moderate amount of ascites. Paracentesis site is marked on skin. Dictated by: Emilia Gonzalez M.D. on 05/22/2016 at 13:59 Approved by: Emilia Gonzalez M.D. on 05/22/2016 at 14:01
[2016-05-22] MEDS ORDERED: Glucose 40% Oral Gel 15 Gm Tube PO PRN (15:25)
[2016-05-22 15:31] VITALS: BP 104/58; PULSE 88; RESP 20; O2SAT 98
[2016-05-22] MEDS ORDERED: Albumin 25% 12.5 GM in IV Premix 1 EACH IV ONE (15:35)
--- NOTE | 2016-05-22 15:54 | PCM.HPMED ---
Subjective Date of Service May 22, 2016 Primary Provider: Admitting Physician: Rocael Spicer MD Primary Care Physician: Lam Duron MD Attending Physician: Rocael Spicer MD History of Present Illness: Chief complaint shortness of breath HISTORY was OBTAINED FROM PATIENT / [facility] NOTES History of present illness 86-year-old male, last hospitalized 2 weeks ago for CHF exacerbation, presents to ER for 1 day history of shortness of breath during normal tests associated lower body/scrotal swelling. upon discharge 2 weeks ago, loop diuretic increased , spironolactone added and on ACEI/K supplementation. abdominal girth increased since discharge. In the ER 1 L normal saline, calcium gluconate, PVR > 300s, santana placed, 5.4L paracentesis Patient was admitted 2 weeks ago with fluid overload treated as right sided CHF w/ stable EF, contributory congestive liver, treated with diuresis and UTI, nephrology, and added inpatient metolazone, BPH and obstructive uropathy evaluated at that time Review of Systems - none of the following - F/C/sick contact / wt change/ TOMAS / lightheaded / dizziness / sob / cough / cp / acid reflux / n/v/ / bleeding/ bruising / leg swelling / change in voiding / yeast infections / rash ambulates C/O DIARRHEA SINCE SPIRONOLACTONE STARTED FAMILY HX PUD SOCIAL HX distant smoker, social EtOH-history of heavy drinking per consult note MEDICATIONS Allopurinol (Allopurinol) 100 Mg Tablet 100 MG PO QAM Arformoterol Tartrate (Brovana) 15 Mcg/2 Ml Vial.neb 15 MCG IH BID Ascorbic Acid (Vitamin C) 500 Mg Capsule.er 500 MG PO QAM Aspirin (Aspirin) 81 Mg Tablet 81 MG PO QAM Atorvastatin Calcium (Atorvastatin Calcium) 20 Mg Tablet 20 MG PO HS Brimonidine Tartrate (Brimonidine 0.2% Oph Soln) 5 Ml Drops 1 GTT LEFT_EYE TID Cider Vinegar (Apple Cider Vinegar) 600 Mg Capsule 600 MG PO DAILY Cyanocobalamin (Vitamin B-12) (Vitamin B-12) 50 Mcg Tablet 100 MCG PO DAILY Dorzolamide (Dorzolamide) 10 Ml Drops 1 GTT BOTH_EYES BID Fluticasone Propionate (Flovent HFA 220 mcg) 12 Gm Aer.w.adap 1 PUFF IH BID Fosinopril Sodium (Fosinopril Sodium) 20 Mg Tablet 10 MG PO HS Latanoprost (Latanoprost) 2.5 Ml Drops 1 GTT BOTH_EYES HS Metformin ER (Metformin ER) 500 Mg Tablet 500 MG PO QAM Multivitamin (Multivitamins) 1 Each Capsule 1 EACH PO DAILY Nitroglycerin 0.2 mg/hr Patch (Nitroglycerin 0.2 mg/hr Patch) 1 Each Patch 0.2 MG TRANSDERM QPM APPLY AT 1900, OFF AT 7 AM Potassium Chloride (Potassium Chloride) 10 Meq Tab.er.prt 20 MEQ PO BIDWM TAKE WITH FOOD Potassium Chloride (Potassium Chloride) 20 Meq Tab.er.prt 20 MEQ PO BID Spironolactone (Aldactone) 25 Mg Tablet 25 MG PO DAILY Terazosin (Terazosin) 10 Mg Capsule 10 MG PO HS Torsemide (Torsemide) 20 Mg Tablet 60 MG PO BID Scheduled PRN Insulin Glargine (Lantus U100 Solostar Insulin Pen) 100 Unit/1 Ml Insuln.pen 12 UNIT SUBQ QAM PRN PRN blood sugar >150 Levalbuterol HCl (Xopenex Concentrate) 1.25 Mg/0.5 Ml Vial.neb 1.25 MG IH BID PRN PRN For Shortness of Breath Past Medical/Surgical HX Cataracts/glaucoma DM, [place] 46 years old, CABG 5bv 1982, 6Bv 1992 CHF, Atrial fibrillation chronic-prior pradaxa and warfarin, Subdural hematoma 2014 Asthma/COPD/emphysema/pneumonia/home O2 2L dependent/palliative care involved BPH - Dr. Patel CKD stage III-IV Back injury Skin cancer Abdominal aneurysm Radiographic cirrhosis Cholecystectomy Allergies Coded Allergies: No Known Allergies (Verified Allergy, Unknown, 05/22/16) PMH Social History Hx Alcohol Use: No Hx Substance Use: No Hx Tobacco Use: Yes Smoking Status: Former Smoker Exam Vital Signs Vital Sign - Last Date Time Temp Pulse Resp B/P Pulse Ox O2 Delivery O2 Flow Rate FiO2 05/22/16 13:42 88 14 114/76 97 Room Air 05/22/16 10:46 36.9 Lab and Diagnostics Labs Exam on admission on RA, air hunger NAD A and O x 3 mood affect WNL NC/AT no icterus no injected eyes EOMI PERRL /no pharyngeal lesions/ no oral lesions / hearing intact Supple neck CTAB equal chest rise / no accessory muscle use / speaks in full sentences / no rrw RRR S1 S2 / no mrg / 2+ radial pulses Soft nt nd + BS no hepatosplenomegaly bilatera lforearms w/ bruising diffuse pelvic/abdominal thugh leg edema no cyanosis no ecchymosis of lower extremities No rash / no jaundice BERNSTEIN symmetrical facies EKG HR 91 SR partial LBBB Trop 0.172 baseline 0.9 proBNP 7774 baseline < 5000 left shift UA pending LFT WNL Imaging retroperitoneal U/S 04/14/16 1. Normal ultrasound appearance of kidneys. No hydronephrosis. 2. 274 mL post void residual in the urinary bladder. 3. A 1.9 x 2.1 x 2.7 cm hyperechoic mass at the base of the urinary bladder. This is most likely caused by enlarged prostate. A bladder mass is less likely but not entirely excluded based on this exam. CT 05/08/16 IMPRESSION: 1. Wedge-shaped consolidation within the right upper lobe. This is present on CTs of the chest from 2014 and 2015; however this has a more consolidated appearance on the current study. It is unclear whether this represents superimposed infection, or indolent slowly progressing neoplasm. CT guided biopsy of this region could be considered; however please note severe emphysematous changes increased the risk of a resultant pneumothorax. PET/CT may also be helpful to further characterize this finding if clinically indicated. 2. Right lower lobe spiculated mass which appears increased in conspicuity when compared with the study from 01/30/15 and similar in appearance to the study dated 08/21/15. 3. Stable small right effusion and new, trace left effusion. 4. Mediastinal adenopathy. The size of the enlarged lymph nodes have slightly increased when compared with the study dated 08/21/15. 5. Moderate amount of abdominopelvic ascites and nodular, diminutive appearance of the liver raising the suspicion for cirrhotic transformation and portal hypertension. 6. 6 mm increase in the lateral dimension of the aneurysm sac of the fusiform abdominal aortic aneurysm when compared with the study dated 01/30/15. If there is clinical suspicion for endoleak, CTA of the endograft is recommended. Result Diagram: 05/22/16 1030 05/22/16 1030 Assessment & Plan Active issues and reason for admission WENDY, w/ known cirrhosis/CKD/CHF, associated w/ Hyperkalemia mild left shift and mild hyponatremia w/ recent spironolactone but recurrent anasarca and progressive ascites -- Dr. Sprague - hold spioronolactone / potassium, continue lasix 80 Q8 x 4, albutmin 12.5 x1, consider repeat therapeutic paracentesis --s/p 5.4L paracentesis in the ER --serial K checks BPH mild urinary retention --anticipate dc santana prior to dc and f/u w/ Dr. Patel, anticipating TURP in the future, continue home terazosin Prior PVR to 274, currently > 300s Pancytopenia, normocytic anemia, likely due to cirrhosis ongoing abnormal consolidations on chest CT RUL and RLL --anticipate referral to pulmnologist on discharge Chronic issues known prior to admission, present on admission DM, [place] 46 years old, CABG 5bv 1982, 6Bv 1992 CHF, Atrial fibrillation chronic-prior pradaxa and warfarin, Subdural hematoma 2014, EF 45% anteroapical infarrcl, moderate-sized severe tricuspid regurgitation Asthma/COPD/emphysema/pneumonia/severe pulmonary hypertension//home O2 2L dependent/palliative care involved BPH - Dr. Patle CKD stage III-IV Back injury Abdominal aneurysm Radiographic cirrhosis --resume home meds Diet low-salt / DM / SSI DVT prophylaxis lovenox Code full Disposition inpt Assessment and plan were discussed with patient Rocael Spicer MD May 22, 2016 13:52 Lab and Diagnostics Result Diagram: 05/22/16 1030 05/22/16 1030 Rocael Spicer MD May 22, 2016 13:52
[2016-05-22 16:00] VITALS: PULSE 84
--- NOTE | 2016-05-22 16:29 | CONS ---
[address] [address] CONSULTATION REPORT PATIENT: XIOMARA CONNORS : 1930 MR#: [id number] ADMIT: 05/22/2016 JOB ID: [id number] CORRECTED REPORT: DATE OF SERVICE: 05/22/2016 HISTORY: The patient is a very pleasant, 86-year-old, white male, who was admitted to [facility] for acute decompensated congestive heart failure and recurrent anasarca. He has also had evidence of acute on chronic kidney injury, renal consultation is being sought for further evaluation and management of his acute on chronic kidney disease. The patient is well known to our service from previous evaluation several weeks ago. He was admitted for acute on chronic kidney injury secondary to acute decompensated heart failure, decompensated cirrhosis, and acute on chronic kidney injury. During our admission at that time, we made some adjustments in his diuretic therapy along with optimizing his heart failure. Of note, during that admission his echocardiogram showed an ejection fraction of 45% to 50%. He states that since discharge he has slowly been reaccumulating fluid in his abdomen, progressive shortness of breath, dyspnea with minimal exertion and at rest, paroxysmal nocturnal dyspnea, and progressive lower extremity edema. He has been compliant with his medications. This morning, he came to the emergency room complaining of shortness of breath, and in the emergency department, his potassium was 6, BUN and creatinine were 116 and 4.86, respectively. His creatinine at time of discharge several weeks ago was 2.32. PAST MEDICAL HISTORY: Significant for: 1. Chronic kidney disease, stage 3/4 secondary to longstanding diabetes with diabetic nephropathy. 2. Hypertension with hypertensive heart disease and hypertensive nephrosclerosis, and intermittent obstructive uropathy. He has seen Dr. Patel in the past. 3. He also has a history of congestive heart failure, atrial fibrillation, coronary artery disease, and benign prostatic hypertrophy. He also has a history of significant COPD and he is normally dependent on oxygen at home. There is also a history of a severe diffuse peripheral vascular disease. PAST SURGICAL HISTORY: Significant for abdominal aortic aneurysm repair, coronary artery bypass graft, popliteal cyst excision. ALLERGIES: He denies any allergies to any food or any medication. SOCIAL HISTORY: He has a history of tobacco use but no longer smokes. He states that he consumes small amounts of alcohol occasionally. REVIEW OF SYSTEMS: Remarkable for cough productive of scant amounts of mucoid sputum, some anorexia, nausea, and breathing difficulties as detailed above. He also complains of progressive edema involving his genitalia and difficulties with urination associated with this. MEDICATIONS: At time of admission include: 1. Allopurinol. 2. Aspirin. 3. Atorvastatin. 4. Flovent. 5. Fosinopril. 6. Metformin. 7. Nitroglycerin. 8. Potassium chloride. 9. Spironolactone. 10. Terazosin. 11. Torsemide. PHYSICAL EXAMINATION: Revealed an obese, somewhat pale appearing, 86-year-old, white male who was in some very mild respiratory distress. He had evidence of mild conversational dyspnea. His blood pressure is 130/65, and pulse was 91. HEENT EXAMINATION: Remarkable for pale sclerae. Neck is supple without adenopathy, thyromegaly. However, he had marked jugular venous distention at 60 degrees. Lungs showed diffuse rales and rhonchi in all lung gallo. Heart was regular. Abdomen was markedly distended and bowel sounds were diminished. The abdomen was tense to palpation. There was evidence of caput medusa and an omphalocele. He had pitting edema in his flanks. The liver was pulsatile but difficult to fully assess due to the marked amount of fluid. Extremities showed moderate pitting edema up through his sacrum and flanks. Nbyv-aib-zuhj nails were noted. Skin turgor was good and there is no evidence of any rashes. LABORATORY EXAMINATION: This morning, white count is 5.6, hemoglobin 7.9, hematocrit 27.1. MCV was normal. However, had hypochromic indices. His sodium was 132, potassium 6.0, chloride 94, bicarbonate of 18, BUN and creatinine were 16 and 4.86, with a glucose of 280. His magnesium is slightly elevated at 2.8, and his albumin level is 3.8. His chest x-ray was reviewed and revealed cardiomegaly with some mild bilateral pleural effusions, diffuse scarring and atelectasis throughout his lung gallo and moderate pulmonary edema. IMPRESSION: 1. Acute on chronic kidney injury secondary to acute decompensated cardiac and hepatic decompensation. 2. Metabolic acidosis secondary to number one. 3. Diabetic nephropathy. 4. Hypertension with hypertensive heart disease and hypertensive nephrosclerosis. 5. Anasarca with ascites. 6. Anemia which is probably multifactorial. RECOMMENDATION: I have discussed the case with Dr. Davis in the emergency department and the patient needs an immediate large-volume paracentesis. He also has 400 postvoid residual, and I would like to have him place a Alatorre catheter in him. In addition, we need to stop metformin, fosinopril, spironolactone, and all of his potassium supplements. I would also like to start him on Lasix 80 mg IV every 8 hours for four doses. At this point, we need to closely monitor his intake, output, and respiratory status. Once again, I would like to thank you for allowing me to participate in the care of this most pleasant but unfortunate patient. I will be following him closely with you. Corrected by NENA 07/02/16 at 12:20pm DOS.
[2016-05-22] MEDS: Heparin 5,000 Unit/mL Inj SUBQ SCH ×2 (16:30→20:36)
[2016-05-22] MEDS ORDERED: Calcium GLUCOnate 10% (Gm) 1 Gm/10 mL Inj ONE (17:12)
[2016-05-22] MEDS: Furosemide 10 mg/mL 10 mL Inj IVPUSH SCH (17:22)
[2016-05-22] MEDS: Insulin LISPRO 300 Unit/3 mL Inj SUBQ SCH ×2 (17:27→20:25)
[2016-05-22 17:58] LABS: BFWBC 75 /mm3; MONOCYTES,BODY FLUID 20 %; OTHER CELLS,BODY FLUID 34
--- NOTE | 2016-05-22 18:10 | NUR ---
Transfer Pt. was transferred from the ED to room 2006 [facility]. Pt. appeared in no distress upon arrival at ~1510 and ambulated off the ED bed to the bed in room 2006. Pt. was noted to be wobbly on his feet when ambulating, SBA. VS stable and no c/o pain, SOB, or CP at this time. Pt. refused heparin shot of 5000 units because he states " I bruises easily now". Pt. at this time is resting comfortably in bed on tele with a heart rhythm of AFIB and HR 71 per tele.
[2016-05-22 20:16] VITALS: BP 97/55; PULSE 75; RESP 12; O2SAT 97
[2016-05-22] MEDS: Fluticasone 250 mCg Inhaler INHALATION SCH (20:22)
[2016-05-22] MEDS: Brimonidine 0.2% 5 mL Ophthalmic Solution LEFT_EYE SCH (20:22)
[2016-05-22] MEDS: Dorzolamide 2% 10 mL Ophthalmic Solution BOTH_EYES SCH (20:23)
[2016-05-22] MEDS: Insulin GLARgine 100 Unit/mL Syringe SUBQ SCH (20:26)
[2016-05-22] MEDS: Arformoterol 15 mCg/2 mL Inhalation Solution INHALATION SCH (20:30)
[2016-05-23] VITALS (11 sets, daily range): BP systolic 89–113; BP diastolic 40–71; PULSE 66–82; RESP 12–20; O2SAT 94–99
[2016-05-23] MEDS: Furosemide 10 mg/mL 10 mL Inj IVPUSH SCH ×4 (00:22→21:37)
[2016-05-23 03:25] LABS: BASOPHILS % (AUTO) 0.2 % (0-3); EOSINOPHILS % (AUTO) 1.3 % (0-5); MONOCYTES % (AUTO) 9.1 % (4-12); Mean Corpuscular Hemoglobin 25.8 pg (27.0-35.0); Mean Corpuscular Volume 86.6 fL (81-100); NEUTROPHILS % (AUTO) 73.6 % (40-74); Platelet Count 112 bil/L (150-400)
[2016-05-23 03:41] LABS: Phosphorus 4.9 mg/dL (2.5-4.9)
--- NOTE | 2016-05-23 06:12 | NUR ---
HEPARIN/OUTPUT Pt denied subQ Heparin, stating that he cant do heparin because it makes him bruise too easily and any little scratch makes him bleed all over. Pt did have a previous small cut on his right little toe that started bleeding all over his bedding. Bedding had to be changed and bandaid reapplied. Pt made a point to justify his reasoning of not taking subQ heparin. Pt received IV Lasix, 5 doses of 80mg are ordered, 2 doses given so far. Pt does have a patent santana cath that drained pink tinged urine with a total of 2550 out.
[2016-05-23] MEDS: Insulin LISPRO 300 Unit/3 mL Inj SUBQ SCH ×4 (07:32→21:54)
[2016-05-23] MEDS: Arformoterol 15 mCg/2 mL Inhalation Solution INHALATION SCH ×2 (08:09→20:09)
[2016-05-23] MEDS: Albuterol 2.5 mg/3 mL Inhalation Solution NEB PRN (08:10)
[2016-05-23] MEDS: Heparin 5,000 Unit/mL Inj SUBQ SCH ×2 (08:30→16:30)
[2016-05-23] MEDS: Dorzolamide 2% 10 mL Ophthalmic Solution BOTH_EYES SCH ×2 (09:00→21:38)
[2016-05-23] MEDS: Brimonidine 0.2% 5 mL Ophthalmic Solution LEFT_EYE SCH ×3 (09:00→21:41)
[2016-05-23] MEDS: Fluticasone 250 mCg Inhaler INHALATION SCH ×2 (09:02→21:38)
[2016-05-23 09:35] LABS: Magnesium 2.6 mg/dL (1.6-2.6)
[2016-05-23 09:55] LABS: TROPONIN T 0.167 ug/L (0.0-0.011)
--- NOTE | 2016-05-23 11:10 | NUR ---
Social Work- Initial Assessment Data: See Initial Assessment. Pt is a 86 year old male admitted for WENDY, CHF, Cirrhosis, hyperkalemia per H&P. Pt's insurance is [employer]. Pt's PCP is Lam Duron. GENARO met with pt at bedside regarding discharge plan, SW role explained. Pt alert and oriented x3. Pt resides in a mobile home in [place] where he remains independent at base. Pt has family in [place] who check in on him. Pt drives and uses no DME. Pt has no HH history but has history at [facility]. Pt has no LTC or VA benefits. SW requested DPOA be brought into the hospital Pt's listed NOK is brother Elijah Jones, . SW spoke with pt regarding home health, role explained. Pt is declining this at this time. Pt to discharge home with brother to transport via POV. No anticipated discharge needs. SW will continue to follow as needs arise. Assessment: Pt [place] independent [place] base. Plan: Pt to discharge home with brother to transport via POV. No anticipated discharge needs. SW will continue to follow as needs arise. JANICE Park Addendum: 05/23/16 at 1113 by NILESH KATZ Amended: Links added.
--- NOTE | 2016-05-23 11:57 | PCM.PNMED ---
Subjective Date of Service May 23, 2016 Subjective Mr. Jones is a 86 -year-old gentleman with past medical history of chronic systolic congestive heart failure, chronic atrial fibrillation, pulmonary hypertension, coronary artery disease, admitted for anasarca. Hospital day 2 Overnight: Patient denied subcutaneous heparin, stating it makes him bruise too easily. Otherwise no events reported. Tele showed A-fib throughout the night. Today: Patient awake and alert sitting up in bed eating breakfast at time of interview. States he feels much better after paracentesis. Denies any chest pain, shortness of breath or abdominal pain. Exam Vital Signs Vital Sign - Last Date Time Temp Pulse Resp B/P Pulse Ox O2 Delivery O2 Flow Rate FiO2 05/23/16 11:18 66 05/23/16 08:23 16 99 Room Air 05/23/16 07:24 36.4 99/40 Intake and Output 05/22/16 05/22/16 05/23/16 Cumulative From/Thru 15:00 23:00 07:00 05/22/16 10:46 - 05/23/16 06:17 Intake Total 125 ml 118 ml 243 ml Output Total 5400 ml 650 ml 2550 ml 8600 ml Balance -5400 ml -525 ml -2432 ml -8357 ml Intake Oral 125 ml 118 ml 243 ml Output Urine Total 650 ml 2550 ml 3200 ml Other 5400 ml 5400 ml Exam General: Awake and alert sitting up in bed eating breakfast in no acute distress , well-developed, well-nourished, appropriately interactive HEENT: Normocephalic, atraumatic. External ears without defect. Pupils equal, round, and reactive to light and accommodation. Pale sclerae, moist conjunctivae, and no lid lag. Oropharynx free of erythema and cobble stoning with moist mucosa. Neck: Supple with full range of motion. No jugular venous distension. Cardiovascular: Regular rate with an irregularly irregular rhythm. No murmurs appreciated Pulmonary: Clear to auscultation bilaterally with no crackles, wheezes, or rhonchi. Normal respiratory effort with no use of accessory muscles. Abdomen: Bowel tones present. Soft, nontender, nondistended. No hepatosplenomegaly or masses appreciated. Extremities: Lower extremity bilaterally pitting edema to pre-tibial area. Skin: Normal temperature, turgor, and texture; no rashes appreciated. Neurological: Cranial nerves grossly intact. Psychiatric: Normal mood and affect. Alert and oriented to person, place, and time. IVs and Medications Medications Reviewed: Medications were reviewed in detail Lab and Diagnostics Result Diagram: 05/23/1624905/23/16249 X-Rays, CTs and MRIs . X-RAY CHEST ONE VIEW, PORTABLE IMPRESSION: 1. Persistent masslike opacity in right upper lobe. Differential diagnoses include pneumonia versus neoplasm. If clinically indicated, PET CT may be helpful for further evaluation. Dictated by: Emilia Gonzalez M.D. on 05/22/2016 at 11:33 US ABDOMEN, LIMITED IMPRESSION: Moderate amount of ascites. Paracentesis site is marked on skin. Dictated by: Emilia Gonzalez M.D. on 05/22/2016 at 13:59 Assessment & Plan Mr. Jones is a 86 -year-old gentleman with past medical history of chronic systolic congestive heart failure, chronic atrial fibrillation, pulmonary hypertension, coronary artery disease, admitted for anasarca. Hospital day 2 1. Anasarca. Present on admission. Improved - Etiology unknown, most likely secondary to hepatorenal syndrome with underlying cirrhosis - Paracentesis in the emergency department with 5 L of fluid extracted - Nephrology following, we appreciate their recommendations - Consider addition of po Aldactone and Lasix up on discharge - Consider albumin if albumin level falls below normal - Furosemide 80 mg IV push every 8 2. Acute on Chronic Kidney injury. Present on admission. Ongoing - Most likely secondary to hypovolemia from hepatorenal syndrome with resulting anasarca - Avoid nephrotoxic insults - Monitor urine output - Per nephrology; hold spironolactone/potassium, Lasix as in #1, albumin 1 time - We will consider repeat therapeutic paracentesis - Continued home allopurinol, uric acid level pending 3. Acute on Chronic systolic Heart failure. Present on admission - Echocardiogram 04/27/2016 showed normal LV, EF 45-50%. RV mildly dilated with moderate reduction in function. Pulmonary hypertension - Telemetry - TSH level at last admission on 05/04/2016 was 5.27, repeat lab pending - Diuretics as in #1 - Monitor I's and O's 4. Chronic Anemia. Present on admission. Ongoing - Most likely secondary to #2 - Stool guaiacs pending - Type and cross - Aranesp 60 mg subcutaneous 5. Cirrhosis with Thrombocytopenia. Present on admission. Ongoing - Reports distant history of mention of cirrhosis by his surgeon during cholecystectomy - History of CT and ultrasound which also suggests this diagnosis - LFTs within normal limits - Hepatitis panel pending - INR 1.16 on admission - Continue to monitor 6. Chronic Atrial fibrillation. Present on admission. Ongoing - Currently rate controlled med rec does not show rate controlling home medications - Telemetry as an #3 - Not on anticoagulation 7. COPD. Present admission. Ongoing - Continued home Brovana - Do nebs when necessary 8. Hyperlipidemia. Present on admission. Ongoing - Continued home atorvastatin 20 mg daily 9. Benign prostatic hyperplasia. Present on admission. Ongoing - Patient reports urinary retention - Continued home Terazosin - Alatorre cath in place - Monitor outputs 10. Diabetes mellitus Type 2. Present admission. Ongoing - A1c 7.4 last admission 05/04/2016 - Hold home metformin & insulin glargine - Low-dose correctional scale insulin 11. Abnormal findings CXR. Present on admission. Ongoing - Persistent masslike opacity in right upper lobe -Consider follow-up with matching machine operator as outpatient 12. Hyponatremia. Present on admission. Resolved - Initial sodium on admission 132, most likely secondary to fluid overload - Repeat value 135 13. Hyperkalemia. Present on admission. Resolved - Most likely secondary to diuretic use - Held spironolactone 14. Elevated troponin. Present on admission. Ongoing - Most likely secondary to #2. - Troponin levels 0.172, 0.162, 0.167 - No reported chest pain - EKG showed no ST abnormalities - Acetaminophen as needed for mild pain/fever/headache - Bowel regimen as needed - Antiemetic as needed Disposition: Patient will remain under inpatient status, anticipate discharge in 1-2 days after resolution of electrolyte imbalances as well as determining the need for further therapeutic paracentesis. Pain Evaluation: Adequate Pain Control VTE Prophylaxis: Sub-Q Heparin (Unfractionated) (patient has refused this), SCDs Resuscitation Status: DNR/DNI:Do Not Resuscitate/Intubate Attending Statement The patient was seen and examined together with Dr. Davis on 05/23/16 and I agree with the history, exam and plan as outlined in the note above. BLAKE DAVIS DO May 23, 2016 11:57 Wade Rod MD May 23, 2016 21:55 regurgitation Asthma/COPD/emphysema/pneumonia/severe pulmonary hypertension//home O2 2L dependent/palliative care involved BPH - Dr. Patel CKD stage III-IV Back injury Abdominal aneurysm Radiographic cirrhosis --resume home meds Diet low-salt / DM / SSI DVT prophylaxis lovenox Code full Disposition inpt Assessment and plan were discussed with patient VTE Mechanical Devices: Intermittant Pneumatic CD BLAKE DAVIS DO May 23, 2016 11:57
[2016-05-23] MEDS ORDERED: Darbepoetin Alfa 60 mCg/0.3 mL Inj SUBQ ONE (12:20)
[2016-05-23] MEDS ORDERED: Albuterol-Ipratropium 3 mL Inhalation Solution NEB PRN (12:50)
--- NOTE | 2016-05-23 14:27 | PCM.PNNEPH ---
Subjective Date of Service May 23, 2016 Subjective Patient continues to improve. He is breathing considerably better following his paracentesis. In the last 24 hours he has had 3200 mL of urine out. He is resting considerably more comfortably, less orthopnea, cough, chest pain, and abdominal pain. This morning his sodium is 135, potassium 4.8, chloride 97, bicarbonate 23, BUN and creatinine of 112 and 4.13 and hemoglobin 7.7. Exam Vital Signs Vital Sign - Last Date Time Temp Pulse Resp B/P Pulse Ox O2 Delivery O2 Flow Rate FiO2 05/23/16 12:40 37.0 70 20 101/53 94 Nasal Cannula 2.00 Intake and Output 05/22/16 05/22/16 05/23/16 Cumulative From/Thru 15:00 23:00 07:00 05/22/16 10:46 - 05/23/16 06:17 Intake Total 125 ml 118 ml 243 ml Output Total 5400 ml 650 ml 2550 ml 8600 ml Balance -5400 ml -525 ml -2432 ml -8357 ml Intake Oral 125 ml 118 ml 243 ml Output Urine Total 650 ml 2550 ml 3200 ml Other 5400 ml 5400 ml Exam HEENT examination is remarkable for pale sclera. Neck is supple without adenopathy thyromegaly or jugular venous distention. Lungs shows some bibasilar rales but are considerably improved from yesterday. Heart was irregularly irregular. Abdomen is much less distended with smaller fluid wave. There is no tenderness, rebound, guarding, or masses. Liver is still large and pulsatile with considerably less so. Extremities continued to demonstrate mild to moderate pitting edema of both lower extremities both proximally and distally. Lab and Diagnostics Result Diagram: 05/23/16 0250 05/23/16 0250 X-Rays, CTs and MRIs . X-RAY CHEST ONE VIEW, PORTABLE IMPRESSION: 1. Persistent masslike opacity in right upper lobe. Differential diagnoses include pneumonia versus neoplasm. If clinically indicated, PET CT may be helpful for further evaluation. Dictated by: Emilia Gonzalez M.D. on 05/22/2016 at 11:33 US ABDOMEN, LIMITED IMPRESSION: Moderate amount of ascites. Paracentesis site is marked on skin. Dictated by: Emilia Gonzalez M.D. on 05/22/2016 at 13:59 Plan Impression Impression #1 acute kidney injury superimposed on chronic kidney disease secondary to acute decompensated congestive heart failure with anasarca #2 hypertension with hypertensive heart disease and hypertensive nephrosclerosis # 3 anemia secondary to chronic kidney disease number for diabetic nephropathy Recommendations #1 as he has had a good response to Lasix I will go ahead and continue 80 mg IV every 12 hours for the next several days. Most likely will be needing to redo his paracentesis and next few days. I would also like to give him 60 mg of Aranesp subcutaneous. Refugio Sprague DO May 23, 2016 14:27
[2016-05-23 17:45] LABS: Unsaturated Iron Binding 338.4 ug/dL
--- NOTE | 2016-05-23 18:55 | NUR ---
Diuresis Cardiac: Pt. denies CP, Tele: afib 60-80s, PVCs. Lasix 80mg Iv changed to BID. Resp: Pt. denies SOB at this time, RA high 90's. Pt reports it is much easier to breath following paracentesis. GI/: Alatorre draining to gravity 1950ml yellow urine out. Denies N/V Neuro: Pt. A&Ox3, BERNSTEIN
[2016-05-23] MEDS: Insulin GLARgine 100 Unit/mL Syringe SUBQ SCH (21:51)
[2016-05-24] VITALS (15 sets, daily range): BP systolic 97–116; BP diastolic 44–69; PULSE 71–89; RESP 15–24; O2SAT 93–98
[2016-05-24] MEDS: Furosemide 10 mg/mL 10 mL Inj IVPUSH SCH ×3 (00:30→21:03)
[2016-05-24] MEDS: Heparin 5,000 Unit/mL Inj SUBQ SCH ×5 (00:30→21:14)
[2016-05-24 03:11] LABS: BASOPHILS % (AUTO) 0.2 % (0-3); EOSINOPHILS % (AUTO) 1.2 % (0-5); MONOCYTES % (AUTO) 10.9 % (4-12); Mean Corpuscular Hemoglobin 25.5 pg (27.0-35.0); Mean Corpuscular Volume 85.3 fL (81-100); Platelet Count 109 bil/L (150-400)
[2016-05-24 03:29] LABS: Magnesium 2.4 mg/dL (1.6-2.6)
--- NOTE | 2016-05-24 04:32 | NUR ---
P: Resp I: scheduled IV lasix E: A/O, talkative. Denies dyspnea at rest and when up walking around room. "I felt so much better when the fluid was taken out of my stomach". RA sat in the mid to high 90s. UOP responsive to lasix. Pitting edema to BLEs. Tele A fib, 80-90s, frequent PVCs. BP stable low. c/o LLE cramping. Walking around and sat up in chair for a while, effective for cramping. Intermittently sleeping through night.
[2016-05-24 07:09] LABS: Hepatitis A Antibody IgM Negative (Negative); Hepatitis B Core Antibody IgM Negative (Negative)
[2016-05-24] MEDS: Albuterol 2.5 mg/3 mL Inhalation Solution NEB PRN ×2 (07:48→19:45)
[2016-05-24] MEDS: Arformoterol 15 mCg/2 mL Inhalation Solution INHALATION SCH ×2 (08:08→19:45)
[2016-05-24] MEDS: Insulin LISPRO 300 Unit/3 mL Inj SUBQ SCH ×4 (08:23→21:19)
[2016-05-24] MEDS: Fluticasone 250 mCg Inhaler INHALATION SCH ×2 (08:23→20:30)
[2016-05-24] MEDS: Brimonidine 0.2% 5 mL Ophthalmic Solution LEFT_EYE SCH ×3 (08:23→20:30)
[2016-05-24] MEDS: Dorzolamide 2% 10 mL Ophthalmic Solution BOTH_EYES SCH ×2 (08:23→20:30)
--- NOTE | 2016-05-24 10:55 | NUR ---
[facility] Signed Charlene Pisano SM[employer]ECER
--- NOTE | 2016-05-24 10:59 | NUR ---
Telemetry: [facility] Runs Patient has been Afib 70-80s with trigeminal PVC pairs and triplets. Patient has had several runs of VT this mornin:22 - 5bt 07:48 - 5bt 08:18 - 6bt 09:40 - 5bt Will continue to monitor. DANA Wetzel aware. Addendum: 05/24/16 at 1804 by RENZO HARLEY 12:15 - 6bt 12:26 - 5bt 15:39 - 6bt 15:44 - 5bt 16:02 - 5bt 16:22 - 5bt 16:50 - 5bt 16:56:10 - 5bt 16:56:33 - 5bt 17:37 - 5bt DANA Wetzel aware.
--- NOTE | 2016-05-24 11:52 | PCM.PNNEPH ---
Subjective Date of Service May 24, 2016 Subjective Patient continues to improve. He is resting much more comfortably and is TOLERATING his diet without any problems. He does complain of some increasing abdominal girth which is to be expected. However he denies any chest pain or orthopnea. His blood pressure is good and the last 24 hours he has had 20 3:41 AM and 4500 out with 1300 out in the first 8 hours today. His hemoglobin continues to drop to 7.1, his sodium is 135, potassium 3.8, chloride of 95 and bicarbonate 23. His BUN and creatinine were 103 and 4.5 respectively. His transferrin saturation is 5%. Exam Vital Signs Vital Sign - Last Date Time Temp Pulse Resp B/P Pulse Ox O2 Delivery O2 Flow Rate FiO2 05/24/16 11:29 36.9 75 15 97/54 97 Room Air 05/23/16 16:10 2.00 Intake and Output 05/23/16 05/23/16 05/24/16 Cumulative From/Thru 15:00 23:00 07:00 05/22/16 10:46 - 05/24/16 06:40 Intake Total 2223 ml 563 ml 3029 ml Output Total 1950 ml 1300 ml 74959 ml Balance 273 ml -737 ml -8821 ml Intake Oral 2223 ml 563 ml 3029 ml Output Urine Total 1950 ml 1300 ml 6450 ml Other 5400 ml # Bowel Movements 0 0 0 Exam HEENT examination is remarkable for pale sclera. Neck supple without adenopathy , thyromegaly, or jugular venous distention. Lungs show some bibasilar rales but otherwise are clear. Heart was irregularly irregular. Abdomen is distended and non-tense. There is free fluid in his abdomen. There is evidence of hepatomegaly and liver is pulsatile. Extremities show some pitting edema up to the mid thigh region but this is also a bit better than previous exam. Encouraged good nutrition no evidence of any rashes. Lab and Diagnostics Result Diagram: 05/24/165 05/24/16244 X-Rays, CTs and MRIs . X-RAY CHEST ONE VIEW, PORTABLE IMPRESSION: 1. Persistent masslike opacity in right upper lobe. Differential diagnoses include pneumonia versus neoplasm. If clinically indicated, PET CT may be helpful for further evaluation. Dictated by: Emilia Gonzalez M.D. on 05/22/2016 at 11:33 US ABDOMEN, LIMITED IMPRESSION: Moderate amount of ascites. Paracentesis site is marked on skin. Dictated by: Emilia Gonzalez M.D. on 05/22/2016 at 13:59 Plan Impression Impression #1 acute on chronic kidney injury secondary to acute decompensated congestive heart failure #2 cardiorenal syndrome #3 anasarca #4 hypertension with hypertensive heart disease and hypertensive nephrosclerosis #5 anemia which is multifactorial including iron deficient. Recommendations #1 I discussed the pros and cons all 4 blood transfusion and the patient declines today. I will go ahead and give him iron infusions over the next several days and continue his Aranesp as previously ordered. We do need to continue to follow his intake, output, and lab. Most likely due to he is going to need another paracentesis. Refugio Sprague DO May 24, 2016 11:52
[2016-05-24] MEDS: Iron Sucrose Inj 200 MG in 0.9% Sodium Chloride 100 ML IV SCH (12:21)
--- NOTE | 2016-05-24 12:34 | PCM.PNMED ---
Subjective Date of Service May 24, 2016 Subjective Patient is an 86-year-old gentleman with chronic systolic congestive heart failure, chronic atrial fibrillation, pulmonary hypertension and coronary artery disease admitted for anasarca. Hospital day #3. No overnight events. The patient reports doing well this morning. He is without any complaints this morning, denies chest pain, shortness of pain, abdominal pain, fever, chills, emesis. Patient tearful when discussing previous hospitalization. Exam Vital Signs Vital Sign - Last Date Time Temp Pulse Resp B/P Pulse Ox O2 Delivery O2 Flow Rate FiO2 05/24/16 07:49 83 18 98 Room Air 05/24/16 07:32 37.0 97/54 05/23/16 16:10 2.00 Intake and Output 05/23/16 05/23/16 05/24/16 Cumulative From/Thru 15:00 23:00 07:00 05/22/16 10:46 - 05/24/16 06:40 Intake Total 2223 ml 563 ml 3029 ml Output Total 1950 ml 1300 ml 62393 ml Balance 273 ml -737 ml -8821 ml Intake Oral 2223 ml 563 ml 3029 ml Output Urine Total 1950 ml 1300 ml 6450 ml Other 5400 ml # Bowel Movements 0 0 0 Exam General: No acute distress, well-developed, well-nourished, appropriately interactive HEENT: Normocephalic, atraumatic. Pale sclerae, moist conjunctivae, and no lid lag. Neck: Supple Cardiovascular: Irregularly irregular. II/ systolic murmur and apex and axilla Pulmonary: Clear to auscultation bilaterally with no crackles, wheezes, or rhonchi. Normal respiratory effort with no use of accessory muscles. Abdomen: Bowel tones present. Mild distension. Extremities: Bilateral lower extremity pitting edema to upper leg Skin: Normal temperature, turgor, and texture; no rashes appreciated. Neurological: Cranial nerves grossly intact. Psychiatric: Normal mood and affect. Alert and oriented to person, place, and time. IVs and Medications Medications Reviewed: Medications were reviewed in detail Lab and Diagnostics Result Diagram: 05/24/1624405/24/16244 X-Rays, CTs and MRIs . X-RAY CHEST ONE VIEW, PORTABLE IMPRESSION: 1. Persistent masslike opacity in right upper lobe. Differential diagnoses include pneumonia versus neoplasm. If clinically indicated, PET CT may be helpful for further evaluation. Dictated by: Emilia Gonzalez M.D. on 05/22/2016 at 11:33 US ABDOMEN, LIMITED IMPRESSION: Moderate amount of ascites. Paracentesis site is marked on skin. Dictated by: Emilia Gonzalez M.D. on 05/22/2016 at 13:59 Assessment & Plan Patient is an 86-year-old gentleman with chronic systolic congestive heart failure, chronic atrial fibrillation, pulmonary hypertension and coronary artery disease admitted for anasarca. Hospital day #3. 1. Anasarca. Present on admission. Improved - Etiology unknown, most likely secondary to hepatorenal syndrome with underlying cirrhosis - Paracentesis in the emergency department with 5 L of fluid removed - Nephrology following. Recommendations per Nephrology appreciated - Continue Lasix 80 Q12 per nephrology - Add Aldactone once Cr is better and transition iv to PO Lasix ,probably tomorrow -patient still has significant ascites,may need repeat paracentesis prior to discharge 2. Acute on Chronic Kidney injury. Present on admission. Ongoing - Most likely secondary to hepatorenal syndrome - Avoid nephrotoxins - Monitor urine output - Per nephrology; hold spironolactone/potassium, Lasix as in #1, albumin one time - Consider repeat therapeutic paracentesis 3. Acute on Chronic systolic Heart failure. Present on admission - Echocardiogram 04/27/[address] showed [address] LV, EF 45-50%. RV mildly dilated with moderate reduction in function. Pulmonary hypertension - Telemetry - TSH level at last admission on 05/04/2016 was 5.27, repeat lab pending - Diuretics as in #1 - Monitor I's and O's 4. Acute on chronic Anemia. Present on admission. Ongoing - Most likely secondary to CKD and iron deficiency - Stool guaiac pending - Patient received Aranesp 60 mg subcutaneous - Patient declined PRBC transfusion - Monitor with CBC 5. Cirrhosis with Thrombocytopenia. Present on admission. Ongoing - Reports distant history of mention of cirrhosis by his surgeon during cholecystectomy - History of CT and ultrasound which also suggests this diagnosis - LFTs within normal limits - Hepatitis panel pending - INR 1.16 on admission - Continue to monitor 6. Chronic Atrial fibrillation. Present on admission. Ongoing - Currently rate controlled. Med rec does not show rate controlling home medication - Not on anticoagulation - Telemetry 7. COPD. Present admission. Ongoing - Continued home Brovana - DuoNeb PRN 8. Hyperlipidemia, chronic. Present on admission. Ongoing - Continued home atorvastatin 20 mg daily 9. Benign prostatic hyperplasia, chronic. Present on admission. Ongoing - Patient reports urinary retention - Continued home Terazosin - Alatorre cath in place - Monitor output 10. Diabetes mellitus Type 2, chronic. Present admission. Ongoing - A1c 7.4 last admission 05/04/2016 - Hold home metformin - Low-dose correctional scale insulin - Lantus 10u HS 11. Right upper lobe mass on chest x-ray. Present on admission. Ongoing - Persistent masslike opacity in right upper lobe - Consider follow-up with teacher drama as outpatient 12. Acute hyponatremia. Present on admission. Resolved - Initial sodium on admission 132, most likely secondary to fluid overload 13. Acute hyperkalemia. Present on admission. Resolved - Likely secondary to WENDY and spironolactone - Held spironolactone 14. Elevated troponin. Present on admission. Ongoing - Most likely secondary to #2. - Troponin levels 0.172, 0.162, 0.167 - No reported chest pain - EKG showed no ST abnormalities - Acetaminophen as needed for mild pain/fever/headache - Bowel regimen as needed - Antiemetic as needed Disposition: Patient will remain under inpatient status, anticipate discharge in 1-2 days after resolution of acute kidney injury and electrolyte imbalances as well as determining the need for further therapeutic paracentesis. VTE Prophylaxis: Sub-Q Heparin (Unfractionated) (patient has refused this), SCDs VTE Mechanical Devices: Intermittant Pneumatic CD Resuscitation Status: DNR/DNI:Do Not Resuscitate/Intubate Attending Statement The patient was seen and examined together with Dr. Wells on 05/24/16 and I agree with the history, exam and plan as outlined in the note above. Nick Wells DO May 24, 2016 08:36 Wade Rod MD May 24, 2016 16:09
--- NOTE | 2016-05-24 19:39 | NUR ---
Anemia/Vtach Cardiac: Pt. denies CP, Tele: afib 70-80s, PVCs, pt has had multiple 5 and 6 beat runs of Vtach today, Dr aware. Resp: Pt. denies SOB at this time, RA high 90's. Pt is able to lay flat to sleep with no dyspnea. GI/: Alatorre draining to gravity. Denies N/V, some increase in stomach rigidity. no stool for sample today, noc nurse aware of need. Neuro: Pt. A&Ox3, BERNSTEIN Pt very tired today, discussed blood product usage with pt after pt declined PRBCs in discussion with Dr Taveras. Answered questions of pt's regarding blood products. Pt voiced understanding.
[2016-05-24] MEDS: 0.9% Sodium Chloride 250 ML IV SCH (20:41)
[2016-05-24] MEDS: Insulin GLARgine 100 Unit/mL Syringe SUBQ SCH (21:19)
[2016-05-25] VITALS (10 sets, daily range): BP systolic 94–116; BP diastolic 47–63; PULSE 74–95; RESP 18–22; O2SAT 93–99
[2016-05-25 03:06] LABS: BASOPHILS % (AUTO) 0.1 % (0-3); EOSINOPHILS % (AUTO) 1.1 % (0-5); MONOCYTES % (AUTO) 12.4 % (4-12); Mean Corpuscular Hemoglobin 25.6 pg (27.0-35.0); Mean Corpuscular Volume 85.5 fL (81-100); NEUTROPHILS % (AUTO) 74.1 % (40-74); Platelet Count 109 bil/L (150-400)
--- NOTE | 2016-05-25 06:21 | NUR ---
Ectopy/PRBC's: Telemetry A-Fib with multiple PVC's and multiple runs of 5-6 beats V-Tach. Physician notified of findings, no new orders received. Will continue to monitor. 1 unit PRBC's administered without difficulty during shift. Hgb increased to 8.1 and Hct: 27.1 with a.m. labs.
[2016-05-25] MEDS: Albuterol 2.5 mg/3 mL Inhalation Solution NEB PRN ×2 (08:16→19:48)
[2016-05-25] MEDS: Arformoterol 15 mCg/2 mL Inhalation Solution INHALATION SCH ×2 (08:16→19:48)
[2016-05-25] MEDS: Heparin 5,000 Unit/mL Inj SUBQ SCH ×2 (08:30→16:30)
[2016-05-25] MEDS: Furosemide 10 mg/mL 10 mL Inj IVPUSH SCH ×2 (08:51→20:39)
[2016-05-25] MEDS: Insulin LISPRO 300 Unit/3 mL Inj SUBQ SCH ×4 (08:55→20:45)
[2016-05-25] MEDS: Brimonidine 0.2% 5 mL Ophthalmic Solution LEFT_EYE SCH ×3 (08:55→20:27)
[2016-05-25] MEDS: Fluticasone 250 mCg Inhaler INHALATION SCH ×2 (08:56→20:27)
[2016-05-25] MEDS: Dorzolamide 2% 10 mL Ophthalmic Solution BOTH_EYES SCH ×2 (08:56→20:28)
[2016-05-25] MEDS ORDERED: Potassium Chloride 20 mEq SR Tablet PO ONE ×2 (11:25→18:00)
[2016-05-25] MEDS: Iron Sucrose Inj 200 MG in 0.9% Sodium Chloride 100 ML IV SCH (11:40)
--- NOTE | 2016-05-25 14:32 | PCM.PNNEPH ---
Subjective Date of Service May 25, 2016 Subjective The patient states that he still has lower leg swelling as well as genital swelling. He believes that he abdominal distention is back similar to his admission day prior to the paracentesis. The patient denies any other issues and still believes he is doing better from the days prior. Exam Vital Signs Vital Sign - Last Date Time Temp Pulse Resp B/P Pulse Ox O2 Delivery O2 Flow Rate FiO2 05/25/16 12:17 36.5 82 18 104/47 96 Room Air 05/23/16 16:10 2.00 Intake and Output 05/24/16 05/24/16 05/25/16 Cumulative From/Thru 15:00 23:00 07:00 05/22/16 10:46 - 05/25/16 04:18 Intake Total 1000 ml 390 ml 4419 ml Output Total 1200 ml 69868 ml Balance -200 ml 390 ml -8631 ml Intake Oral 1000 ml 4029 ml IV Total 40 ml 40 ml Packed Cells 350 ml 350 ml Output Urine Total 1200 ml 7650 ml Other 5400 ml # Bowel Movements 0 Exam General: elderly gentleman in no acute distress, well-developed, well-nourished , appropriately interactive Eyes: PERRLA, anicteric sclera, moist conjunctiva HENT: Normocephalic, atraumatic. pale sclera, moist conjunctivae, and no lid lag. Neck: Supple, mild JVD, trachea midline Cardiovascular: Irregularly irregular. II/ systolic murmur and apex and axilla Pulmonary: Clear to auscultation bilaterally with no crackles, wheezes, or rhonchi. Normal respiratory effort with no use of accessory muscles. Abdomen: Bowel tones present. Moderate distension. nontender Extremities: severe bilateral lower extremity pitting edema to abdomen Skin: Warm and dry, Normal temperature, turgor, and texture; no rashes appreciated. Neurological: Cranial nerves grossly intact. Psychiatric: Normal mood and affect. Alert and oriented to person, place, and time. Lab and Diagnostics Result Diagram: 05/25/16 0250 05/25/16 0250 X-Rays, CTs and MRIs X-RAY CHEST ONE VIEW, PORTABLE IMPRESSION: 1. Persistent masslike opacity in right upper lobe. Differential diagnoses include pneumonia versus neoplasm. If clinically indicated, PET CT may be helpful for further evaluation. Dictated by: Emilia Gonzalez M.D. on 05/22/2016 at 11:33 US ABDOMEN, LIMITED IMPRESSION: Moderate amount of ascites. Paracentesis site is marked on skin. Dictated by: Emilia Gonzalez M.D. on 05/22/2016 at 13:59 Plan Impression 86yo male with multiple comorbidities including systolic congestive heart failure, chronic kidney disease, cirrhosis, diabetes present with intra- abdominal hypertension and anasarca. 1. Intra-abdominal hypertension 2. Acute kidney injury and chronic kidney disease 3. Systolic Heart Failure 4. cirrhosis 5. BPH 6. normocytic anemia 7. Hypokalemia Plan: 1. Intra-abdominal hypertension - Patient had a paracentesis at admission 05/22 with 5.4L removed, the fluid has been sent for analysis including culture and gram stain as well as cell count. It appears to be transudative bordering on exudative with significant RBC. - Repeat paracentesis and send again for cytology as the first tap is often falsely negative for malignancy - continue lasix 80mg BID with potassium repletion as necessary 2. Acute kidney injury and chronic kidney disease - WENDY likely secondary to #1 and #3 with poor renal perfusion - treat underlying causes including repeat paracentesis as well as diuretic therapy described below - significant improvement since admission and over the last day with 1U of PRBC - Albumin supplementation post paracentesis with 25mg albumin x3 - continue to monitor fluid status 3. Systolic Heart Failure - continue diuretic therapy with Lasix 80mg BID and Spironolactone 25mg daily 4. cirrhosis - SAAG > 1.1 consistent with portal hypertension of known cirrhosis - patient is at risk for hepatocellular carcinoma - treat intra-abdominal fluid - Repeat paracentesis and send again for cytology as the first tap is often falsely negative for malignancy 5. BPH - santana in place 6. normocytic anemia - Iron sucrose 200mg every other day - Erythropoetin 60mcg once - monitor 7. hyponatremia - secondary to lasix therpy - add Spironolactone 25mg daily - continue oral supplimentation as necessary Virgil Jason DO May 25, 2016 14:32
--- NOTE | 2016-05-25 14:33 | DRSVH ---
PROCEDURE: US ABDOMEN, LIMITED ([id number]) INDICATIONS: therapeudtic TECHNIQUE: Real-time focused scanning was performed of the abdomen, with image documentation. COMPARISON: [facility], , [facility] L[facility], 05/22/2016, 14:38. FINDINGS: Small amount of ascites seen throughout the abdomen and pelvis with volume not sufficient f or therapeutic paracentesis. IMPRESSION: Small amount of ascites. Dictated by: Suhail Cavanaugh RR Interpreted: Sylvain Chi MD on 05/25/2016 at 14:31 Transcribed by: LEATHA on 05/25/2016 at 14:32 Approved by: Sylvain Chi M.D. on 05/25/2016 at 14:57
--- NOTE | 2016-05-25 15:38 | PCM.PNMED ---
Subjective Date of Service May 25, 2016 Subjective Patient is an 86-year-old gentleman with chronic systolic congestive heart failure, chronic atrial fibrillation, pulmonary hypertension and coronary artery disease admitted for anasarca. Hospital day #4. Overnight: Remained in A. fib throughout the night, rate in the 80s with frequent PVCs and V. tach with multiple runs of V. tach proximally 5 beats at a time. One unit PRBCs given Today:Pt awake and alert, laying in hospital bed. Overall he states that he feels much better. He is breathing better, denies any CP or SOB. Had a "good BM ". Overall he feels much better after paracentesis. Exam Vital Signs Vital Sign - Last Date Time Temp Pulse Resp B/P Pulse Ox O2 Delivery O2 Flow Rate FiO2 05/25/16 12:17 36.5 82 18 104/47 96 Room Air 05/23/16 16:10 2.00 Intake and Output 05/24/16 05/24/16 05/25/16 Cumulative From/Thru 14:59 22:59 06:59 05/22/16 10:46 - 05/25/16 04:18 Intake Total 1000 ml 390 ml 4419 ml Output Total 1200 ml 47678 ml Balance -200 ml 390 ml -8631 ml Intake Oral 1000 ml 4029 ml IV Total 40 ml 40 ml Packed Cells 350 ml 350 ml Output Urine Total 1200 ml 7650 ml Other 5400 ml # Bowel Movements 0 Exam General: Laying in hospital bed in no acute distress, well-developed, well- nourished, appropriately interactive HEENT: Normocephalic, atraumatic. Pale sclerae, moist conjunctivae, and no lid lag. Neck: Supple. No JVD. Cardiovascular: Irregularly irregular. Soft systolic murmur. Pulmonary: Clear to auscultation bilaterally with no crackles, wheezes, or rhonchi. Normal respiratory effort with no use of accessory muscles. Abdomen: Bowel tones present. Mild distension. Extremities: Bilateral lower extremity pitting edema to upper leg Skin: Normal temperature, turgor, and texture; ecchymosis on upper extremities diffusely Neurological: Cranial nerves grossly intact. Psychiatric: Normal mood and affect. Alert and oriented to person, place, and time. IVs and Medications Medications Reviewed: Medications were reviewed in detail Lab and Diagnostics Result Diagram: 05/25/16 0250 05/25/16 0250 X-Rays, CTs and MRIs . X-RAY CHEST ONE VIEW, PORTABLE IMPRESSION: 1. Persistent masslike opacity in right upper lobe. Differential diagnoses include pneumonia versus neoplasm. If clinically indicated, PET CT may be helpful for further evaluation. Dictated by: Emilia Gonzalez M.D. on 05/22/2016 at 11:33 US ABDOMEN, LIMITED IMPRESSION: Moderate amount of ascites. Paracentesis site is marked on skin. Dictated by: Emilia Gonzalez M.D. on 05/22/2016 at 13:59 US ABDOMEN, LIMITED FINDINGS: Small amount of ascites seen throughout the abdomen and pelvis with volume not sufficient for therapeutic paracentesis. IMPRESSION: Small amount of ascites. Dictated by: Suhail Cavanaugh [facility] Interpreted: Sylvain Chi MD on 05/25/2016 at 14:31 Assessment & Plan Patient is an 86-year-old gentleman with chronic systolic congestive heart failure, chronic atrial fibrillation, pulmonary hypertension and coronary artery disease admitted for anasarca. Hospital day #4. 1. Anasarca. Present on admission. Improved - Etiology unknown, most likely secondary to hepatorenal syndrome with underlying cirrhosis - Paracentesis in the emergency department with 5.4 L of fluid removed - Awaiting fluid culture - Nephrology following. Recommendations per Nephrology appreciated - Continue Lasix 80 twice a day - Spironolactone 25 mg daily - Add Aldactone once Cr is better - Albumin supplementation 25 mg 3 post paracentesis -Patient still has clinical signs and symptoms of anasarca -Ultrasound showed "Small amount of ascites seen throughout the abdomen and pelvis with volume not sufficient for therapeutic paracentesis." 2. Acute on Chronic Kidney injury. Present on admission. Ongoing - Most likely secondary to hepatorenal syndrome - Avoid nephrotoxins - Monitor urine output - Per nephrology; hold spironolactone/potassium, Lasix as in #1, albumin one time - Consider repeat therapeutic paracentesis 3. Acute on Chronic systolic Heart failure. Present on admission. Ongoing - Echocardiogram 04/27/2016 showed normal LV, EF 45-50%. RV mildly dilated with moderate reduction in function. Pulmonary hypertension - Telemetry - TSH level 3.5 - Diuretics as in #1 - Monitor I's and O's 4. Acute on chronic Anemia. Present on admission. Ongoing - Most likely secondary to CKD and iron deficiency - Stool guaiac pending - Patient received Aranesp 60 mg subcutaneous - Received 1 unit PRBCs - Supplement iron - Monitor with CBC 5. Cirrhosis with Thrombocytopenia. Present on admission. Ongoing - Reports distant history of mention of cirrhosis by his surgeon during cholecystectomy - History of CT and ultrasound which also suggests this diagnosis - SAAG greater than 1.1 is consistent with portal hypertension - LFTs within normal limits - Hepatitis panel negative - INR 1.16 on admission - Repeat paracentesis indicated, send out cytology - Continue to monitor 6. Chronic Atrial fibrillation. Present on admission. Ongoing - Currently rate controlled. Med rec does not show rate controlling home medication - Not on anticoagulation - Telemetry 7. COPD. Present admission. Ongoing - Continued home Brovana - DuoNeb PRN 8. Hyperlipidemia, chronic. Present on admission. Ongoing - Continued home atorvastatin 20 mg daily 9. Benign prostatic hyperplasia, chronic. Present on admission. Ongoing - Patient reports urinary retention - Continued home Terazosin - Alatorre cath in place - Monitor output 10. Diabetes mellitus Type 2, chronic. Present admission. Ongoing - A1c 7.4 last admission 05/04/2016 - Hold home metformin - Low-dose correctional scale insulin - Lantus 10u HS 11. Right upper lobe mass on chest x-ray. Present on admission. Ongoing - Persistent masslike opacity in right upper lobe - Consider follow-up with production sanitizer as outpatient 12. Acute hyponatremia. Present on admission. Resolved - Initial sodium on admission 132, most likely secondary to fluid overload - Diuretics as an 1 - Oral repletion when necessary 13. Acute hyperkalemia. Present on admission. Resolved - Likely secondary to WENDY and spironolactone - Held spironolactone 14. Elevated troponin. Present on admission. Ongoing - Most likely secondary to #2. - Troponin levels 0.172, 0.162, 0.167 - No reported chest pain - EKG showed no ST abnormalities - Acetaminophen as needed for mild pain/fever/headache - Bowel regimen as needed - Antiemetic as needed Disposition: Patient will remain under inpatient status, anticipate discharge in 1-2 days after resolution of acute kidney injury and electrolyte imbalances as well as determining the need for further therapeutic paracentesis. Pain Evaluation: Adequate Pain Control VTE Prophylaxis: Sub-Q Heparin (Unfractionated) (patient has refused this), SCDs VTE Mechanical Devices: Intermittant Pneumatic CD Resuscitation Status: DNR/DNI:Do Not Resuscitate/Intubate Attending Statement The patient was seen and examined together with Dr. Davis on 05/25/2016 and I agree with the history, exam and plan as outlined in the note above. . BLAKE DAVIS DO May 25, 2016 15:38 Leland Noel MD May 25, 2016 17:05
[2016-05-25] MEDS: 0.9% Sodium Chloride 250 ML IV SCH (16:46)
--- NOTE | 2016-05-25 18:24 | NUR ---
Guaiac/ABD US. Cardiac: Telemetry A-Fib with frequent PVC's and intermittent runs of 5-6 beats V-Tach, physician aware. Denies chest pain. Resp: Denies SOB. SPO2 95% on RA. GI/: Denies n/v/d, X Large formed BM today. Guaiac sent, sample not suitable for Cdiff due to contamination. Guaiac positive. Dr notified. ABD US completed today to assess ascites, showed negative for large fluid volume accumulation. Alatorre catheter patent and draining via gravity. Neuro: Alert and oriented X3.
[2016-05-25] MEDS: Insulin GLARgine 100 Unit/mL Syringe SUBQ SCH (20:45)
[2016-05-26] VITALS (8 sets, daily range): BP systolic 94–117; BP diastolic 46–63; PULSE 79–88; RESP 16–22; O2SAT 91–97
[2016-05-26] MEDS: Heparin 5,000 Unit/mL Inj SUBQ SCH ×3 (00:30→16:30)
[2016-05-26 02:53] LABS: BASOPHILS % (AUTO) 0.4 % (0-3); EOSINOPHILS % (AUTO) 0.8 % (0-5); MONOCYTES % (AUTO) 12.4 % (4-12); Mean Corpuscular Hemoglobin 25.5 pg (27.0-35.0); Mean Corpuscular Volume 85.8 fL (81-100); NEUTROPHILS % (AUTO) 73.8 % (40-74); Platelet Count 118 bil/L (150-400)
[2016-05-26 03:17] LABS: Magnesium 2.3 mg/dL (1.6-2.6)
--- NOTE | 2016-05-26 05:13 | NUR ---
Rest: Pt. sleeping soundly throughout much of night. Pt. appeared to rest well during shift. Denies pain. Denies SOB. No overt signs or symptoms of distress. Uneventful shift.
[2016-05-26] MEDS: Insulin LISPRO 300 Unit/3 mL Inj SUBQ SCH ×4 (08:00→22:24)
[2016-05-26] MEDS: Brimonidine 0.2% 5 mL Ophthalmic Solution LEFT_EYE SCH ×3 (08:17→22:16)
[2016-05-26] MEDS: Dorzolamide 2% 10 mL Ophthalmic Solution BOTH_EYES SCH ×2 (08:17→22:16)
[2016-05-26] MEDS: Fluticasone 250 mCg Inhaler INHALATION SCH ×2 (08:18→22:15)
[2016-05-26] MEDS: Furosemide 10 mg/mL 10 mL Inj IVPUSH SCH ×2 (08:21→22:15)
[2016-05-26] MEDS: Albuterol 2.5 mg/3 mL Inhalation Solution NEB PRN ×2 (09:15→19:36)
[2016-05-26] MEDS: Arformoterol 15 mCg/2 mL Inhalation Solution INHALATION SCH ×2 (09:18→19:36)
--- NOTE | 2016-05-26 11:26 | PCM.PNMED ---
Subjective Date of Service May 26, 2016 Subjective Mr. wilson is an 86-year-old gentleman with chronic systolic congestive heart failure, chronic atrial fibrillation, pulmonary hypertension and coronary artery disease admitted for anasarca. Hospital day #5. Overnight: Continue to remain in A. fib with frequent PVCs with some intermittent runs of V. tach. Asymptomatic through these episodes. Stool guaiac positive for blood. Subsequent soundly throughout much of night. Denying any pain or shortness of breath. Today: Vision awake and alert lying in hospital bed in no apparent distress. He states that he still feels much better, states his breathing has not worsened since his initial paracentesis. Does not endorse any chest pain headaches or visual disturbances abdominal pain or difficulty voiding. Exam Vital Signs Vital Sign - Last Date Time Temp Pulse Resp B/P Pulse Ox O2 Delivery O2 Flow Rate FiO2 05/26/16 11:02 81 05/26/16 09:18 16 97 Room Air 05/26/16 07:56 36.5 95/46 05/23/16 16:10 2.00 Intake and Output 05/25/16 05/25/16 05/26/16 Cumulative From/Thru 15:00 23:00 07:00 05/22/16 10:46 - 05/26/16 06:58 Intake Total 1250 ml 1200 ml 874 ml 7743 ml Output Total 2450 ml 1500 ml 1200 ml 71188 ml Balance -1200 ml -300 ml -326 ml -33206 ml Intake Oral 1250 ml 1200 ml 874 ml 7353 ml IV Total 40 ml Packed Cells 350 ml Output Urine Total 2450 ml 1500 ml 1200 ml 29585 ml Other 5400 ml # Bowel Movements 0 Exam General: Laying in hospital bed in no acute distress, well-developed, well- nourished, appropriately interactive HEENT: Normocephalic, atraumatic. PERRLA, moist conjunctivae, and no lid lag. Mucous membranes moist Neck: Supple. No JVD. Cardiovascular: Irregularly irregular. Soft systolic murmur. Pulmonary: Clear to auscultation bilaterally with no crackles, wheezes, or rhonchi. Normal respiratory effort with no use of accessory muscles, decreased air movement. Abdomen: Bowel tones present. Mild distension. Mild fluid wave appreciated. Hepatomegaly appreciated. Extremities: Bilateral lower extremity pitting edema to upper leg Skin: Normal temperature, turgor, and texture; ecchymosis on upper extremities diffusely Neurological: Cranial nerves grossly intact. Psychiatric: Normal mood and affect. Alert and oriented to person, place, and time. IVs and Medications Medications Reviewed: Medications were reviewed in detail Lab and Diagnostics Result Diagram: 05/26/16 0230 05/26/16 0230 X-Rays, CTs and MRIs . X-RAY CHEST ONE VIEW, PORTABLE IMPRESSION: 1. Persistent masslike opacity in right upper lobe. Differential diagnoses include pneumonia versus neoplasm. If clinically indicated, PET CT may be helpful for further evaluation. Dictated by: Emilia Gonzalez M.D. on 05/22/2016 at 11:33 US ABDOMEN, LIMITED IMPRESSION: Moderate amount of ascites. Paracentesis site is marked on skin. Dictated by: Emilia Gonzalez M.D. on 05/22/2016 at 13:59 US ABDOMEN, LIMITED FINDINGS: Small amount of ascites seen throughout the abdomen and pelvis with volume not sufficient for therapeutic paracentesis. IMPRESSION: Small amount of ascites. Dictated by: Suhail Cavanaugh RRA Interpreted: Sylvain Chi MD on 05/25/2016 at 14:31 Assessment & Plan Patient is an 86-year-old gentleman with chronic systolic congestive heart failure, chronic atrial fibrillation, pulmonary hypertension and coronary artery disease admitted for anasarca. Hospital day #4. 1. Anasarca. Present on admission. Improved - Etiology unknown, most likely secondary to hepatorenal syndrome with underlying cirrhosis - Paracentesis in the ED with 5.4 L of fluid removed - Awaiting fluid culture - Nephrology following. Recommendations per Nephrology appreciated - Continue Lasix 80 twice a day - Spironolactone 25 mg daily - Add Aldactone once Cr is better - Albumin supplementation 25 mg 3 post paracentesis -Patient still has clinical signs and symptoms of anasarca -Ultrasound showed "Small amount of ascites seen throughout the abdomen and pelvis with volume not sufficient for therapeutic paracentesis." - Continue on current medication regimen, reassess necessity of therapeutic paracentesis in the morning 2. Acute on Chronic Kidney injury. Present on admission. Improving - Most likely secondary to hepatorenal syndrome - Avoid nephrotoxins - Monitor urine output - Spironolactone and Lasix as in #1 - Consider Repeat paracentesis as a #1 3. Acute on Chronic systolic Heart failure. Present on admission. Ongoing - Echocardiogram 04/27/2016 showed normal LV, EF 45-50%. RV mildly dilated with moderate reduction in function. Pulmonary hypertension - Telemetry - TSH level 3.5 - Diuretics as in #1 - Monitor I's and O's 4. Acute on chronic Anemia. Present on admission. Ongoing - Most likely secondary to CKD and iron deficiency - Stool guaiac positive - Consider GI consult - Patient received Aranesp 60 mg subcutaneous - Received 1 unit PRBCs - Supplement iron - Monitor with CBC - Hemoglobin stable 8.4 5. Cirrhosis with Thrombocytopenia. Present on admission. Ongoing - Reports distant history of mention of cirrhosis by his surgeon during cholecystectomy - History of CT and ultrasound which also suggests this diagnosis - SAAG greater than 1.1 is consistent with portal hypertension - LFTs within normal limits - Hepatitis panel negative - INR 1.16 on admission - Repeat paracentesis indicated, send out cytology - Continue to monitor 6. Chronic Atrial fibrillation. Present on admission. Ongoing - Currently rate controlled. Med rec does not show rate controlling home medication - Not on anticoagulation - Telemetry 7. COPD. Present admission. Ongoing - Continued home Brovana - DuoNeb PRN 8. Hyperlipidemia, chronic. Present on admission. Ongoing - Continued home atorvastatin 20 mg daily 9. Benign prostatic hyperplasia, chronic. Present on admission. Ongoing - Patient reports urinary retention - Continued home Terazosin - Alatorre cath in place - Monitor output 10. Diabetes mellitus Type 2, chronic. Present admission. Ongoing - A1c 7.4 last admission 05/04/2016 - Hold home metformin - Low-dose correctional scale insulin - Lantus 10u HS 11. Right upper lobe mass on chest x-ray. Present on admission. Ongoing - Persistent masslike opacity in right upper lobe - Consider follow-up with vp project as outpatient 12. Acute hyponatremia. Present on admission. Resolved - Initial sodium on admission 132, most likely secondary to fluid overload - Diuretics as an #1 - Oral repletion when necessary 13. Acute hyperkalemia. Present on admission. Resolved - Likely secondary to WENDY and spironolactone - Held spironolactone 14. Elevated troponin. Present on admission. Ongoing - Most likely secondary to #2. - Troponin levels 0.172, 0.162, 0.167 - No reported chest pain - EKG showed no ST abnormalities - Acetaminophen as needed for mild pain/fever/headache - Bowel regimen as needed - Antiemetic as needed Disposition: Patient will remain under inpatient status, anticipate discharge in 1-2 days after resolution of acute kidney injury and electrolyte imbalances as well as determining the need for further therapeutic paracentesis. Pain Evaluation: Adequate Pain Control VTE Prophylaxis: Sub-Q Heparin (Unfractionated) (patient has refused this), SCDs VTE Mechanical Devices: Intermittant Pneumatic CD Resuscitation Status: DNR/DNI:Do Not Resuscitate/Intubate Attending Statement The patient was seen and examined together with Dr. Davis on 05/26/2016 and I agree with the history, exam and plan as outlined in the note above. . BLAKE DAVIS DO May 26, 2016 11:26 Leland Noel MD May 29, 2016 09:47
--- NOTE | 2016-05-26 12:34 | NUR ---
Social Work- Readiness for Discharge Data: EMR reviewed. Pt is on day 4 of hospitalization for WENDY, CHF, Cirrhosis, and Hyperkalemia per H&P. Pt is not medically stable for discharge, anticipate 1-2 more days. Per RN notes, pt has been ambulating independently in room. SW spoke with pt at bedside regarding home health at discharge. SW spoke extensively about home health, the role that it plays, and it's function. Pt is declining home health at this time, stating that he feels he is well supported for by his local family. Pt states understanding of home health and it's benefits, yet still declines services. Pt to discharge home with brother to transport via POV. No anticipated discharge needs. SW will continue to follow. Assessment: Pt who is independent at base. Plan: Pt declining HH after extensive conversation with CERTIFIED NURSES' AIDE. Pt to discharge home with brother to transport via POV. No anticipated discharge needs. SW will continue to follow. JANICE [place]
--- NOTE | 2016-05-26 14:31 | PCM.PNNEPH ---
Subjective Date of Service May 26, 2016 Subjective Patient is feeling better today. He states that his breathing seems improved and he believes the swelling his his belly and legs and groin is also improved. The patient was eating lunch later in the day when seen again for a possible paracentesis and describes no issues at this time either. Exam Vital Signs Vital Sign - Last Date Time Temp Pulse Resp B/P Pulse Ox O2 Delivery O2 Flow Rate FiO2 05/26/16 12:05 36.6 80 112/63 93 Room Air 05/26/16 09:18 16 05/23/16 16:10 2.00 Intake and Output 05/25/16 05/25/16 05/26/16 Cumulative From/Thru 15:00 23:00 07:00 05/22/16 10:46 - 05/26/16 06:58 Intake Total 1250 ml 1200 ml 874 ml 7743 ml Output Total 2450 ml 1500 ml 1200 ml 69817 ml Balance -1200 ml -300 ml -326 ml -97035 ml Intake Oral 1250 ml 1200 ml 874 ml 7353 ml IV Total 40 ml Packed Cells 350 ml Output Urine Total 2450 ml 1500 ml 1200 ml 13250 ml Other 5400 ml # Bowel Movements 0 Exam General: elderly gentleman in no acute distress, well-developed, well-nourished , appropriately interactive Eyes: PERRLA, anicteric sclera, moist conjunctiva HENT: Normocephalic, atraumatic. pale sclera, moist conjunctivae, and no lid lag. Neck: Supple, mild JVD, trachea midline Cardiovascular: Irregularly irregular. II/ systolic murmur and apex and axilla Pulmonary: Clear to auscultation bilaterally with no crackles, wheezes, or rhonchi. Normal respiratory effort with no use of accessory muscles. Abdomen: Bowel tones present. Moderate distension. nontender Extremities: severe bilateral lower extremity pitting edema to abdomen Skin: Warm and dry, Normal temperature, turgor, and texture; no rashes appreciated. Neurological: Cranial nerves grossly intact. Psychiatric: Normal mood and affect. Alert and oriented to person, place, and time. Lab and Diagnostics Result Diagram: 05/26/16 0230 05/26/16 0230 X-Rays, CTs and MRIs . X-RAY CHEST ONE VIEW, PORTABLE IMPRESSION: 1. Persistent masslike opacity in right upper lobe. Differential diagnoses include pneumonia versus neoplasm. If clinically indicated, PET CT may be helpful for further evaluation. Dictated by: Emilia Gonzalez M.D. on 05/22/2016 at 11:33 US ABDOMEN, LIMITED IMPRESSION: Moderate amount of ascites. Paracentesis site is marked on skin. Dictated by: Emilia Gonzalez M.D. on 05/22/2016 at 13:59 US ABDOMEN, LIMITED FINDINGS: Small amount of ascites seen throughout the abdomen and pelvis with volume not sufficient for therapeutic paracentesis. IMPRESSION: Small amount of ascites. Dictated by: Shuail Cavanaugh RRA Interpreted: Sylvain Chi MD on 05/25/2016 at 14:31 Plan Impression 86yo male with multiple comorbidities including systolic congestive heart failure, chronic kidney disease, cirrhosis, diabetes present with intra- abdominal hypertension and anasarca. 1. Intra-abdominal hypertension 2. Acute kidney injury and chronic kidney disease 3. Systolic Heart Failure 4. cirrhosis 5. BPH 6. normocytic anemia 7. Hypokalemia Plan: Plan: 1. Intra-abdominal hypertension - Patient had a paracentesis at admission 05/22 with 5.4L removed, the fluid has been sent for analysis including culture and gram stain as well as cell count. It appears to be transudative bordering on exudative with significant RBC. - primary team ordered a US evaluation to look for fluid to tap on 05/25 without significant collection per report - consider repeat paracentesis for diagnostic only and send again for cytology as the first tap is often falsely negative for malignancy, Albumin supplementation post paracentesis with 25mg albumin x3 - continue lasix 80mg BID with potassium repletion as necessary 2. Acute kidney injury and chronic kidney disease - WENDY likely secondary to #1 and #3 with poor renal perfusion - treat underlying causes including repeat paracentesis as well as diuretic therapy described below - significant improvement since admission and over the last day with 1U of PRBC - continue to monitor fluid status 3. Systolic Heart Failure - continue diuretic therapy with Lasix 80mg BID and Spironolactone 25mg daily 4. cirrhosis - SAAG > 1.1 consistent with portal hypertension of known cirrhosis - patient is at risk for hepatocellular carcinoma, however AFB was negative in April - treat intra-abdominal fluid analysis - Repeat paracentesis and send again for cytology as the first tap is often falsely negative for malignancy 5. BPH - santana in place - will pull santana 05/27 and serial bladder scan 6. normocytic anemia - Iron sucrose 200mg every other day - Erythropoetin 60mcg once - monitor 7. hyponatremia - secondary to lasix therpy - add Spironolactone 25mg daily - continue oral supplimentation as necessary Virgil Jason DO May 26, 2016 14:31
[2016-05-26] MEDS: 0.9% Sodium Chloride 250 ML IV SCH (17:05)
--- NOTE | 2016-05-26 17:50 | NUR ---
Assumed care Assumed care for patient from Olena CORTEZ at 1600. Pt resting comfortably in bed. Denies pain. Alatorre in place draining yellow urine. Pitting edema to BLE and scrotum, groin area. Cardiac: Pt denies chest pain. Telemetry A-Fib with PVC's Resp: Pt denies SOB, reports an intermittent cough GI/: Pt denies n/v. Denies abdominal pain. Abdomen is distended but pt denies tenderness Neuro: Alert and oriented X3.
[2016-05-26] MEDS: Insulin GLARgine 100 Unit/mL Syringe SUBQ SCH (22:25)
--- NOTE | 2016-05-26 22:59 | NUR ---
Wound care Pt's left elbow dressing shadowed. Dressing changed. New Telfa dressing and Tegaderm to secure applied. Wound continues to ooze from site of skin tear.
[2016-05-27] VITALS (7 sets, daily range): BP systolic 89–117; BP diastolic 37–61; PULSE 76–92; RESP 16–22; O2SAT 91–96
[2016-05-27] MEDS: Heparin 5,000 Unit/mL Inj SUBQ SCH ×4 (00:18→20:29)
[2016-05-27 02:58] LABS: BASOPHILS % (AUTO) 0.3 % (0-3); EOSINOPHILS % (AUTO) 1.7 % (0-5); MONOCYTES % (AUTO) 10.7 % (4-12); Mean Corpuscular Hemoglobin 25.6 pg (27.0-35.0); Mean Corpuscular Volume 86.1 fL (81-100); NEUTROPHILS % (AUTO) 74.3 % (40-74); Platelet Count 116 bil/L (150-400)
[2016-05-27 03:28] LABS: Magnesium 2.3 mg/dL (1.6-2.6)
[2016-05-27] MEDS: Insulin LISPRO 300 Unit/3 mL Inj SUBQ SCH ×4 (07:58→20:19)
[2016-05-27] MEDS: Dorzolamide 2% 10 mL Ophthalmic Solution BOTH_EYES SCH ×2 (08:04→20:14)
[2016-05-27] MEDS: Furosemide 10 mg/mL 10 mL Inj IVPUSH SCH (08:07)
[2016-05-27] MEDS: Brimonidine 0.2% 5 mL Ophthalmic Solution LEFT_EYE SCH ×3 (08:10→20:14)
[2016-05-27] MEDS: Fluticasone 250 mCg Inhaler INHALATION SCH ×2 (08:11→20:15)
[2016-05-27] MEDS: Arformoterol 15 mCg/2 mL Inhalation Solution INHALATION SCH ×2 (08:30→20:38)
--- NOTE | 2016-05-27 11:31 | PCM.PNNEPH ---
Subjective Date of Service May 27, 2016 Subjective Patient feels that he is improving. He has a good appetite and his swelling is down. He feels that he is breathing better. The patient has a vascular surgeon at [facility] who was aware of a possible endoleak from his AAA graft and did not feel that it required further intervention at that time. Exam Vital Signs Vital Sign - Last Date Time Temp Pulse Resp B/P Pulse Ox O2 Delivery O2 Flow Rate FiO2 05/27/16 10:33 76 05/27/16 07:44 36.5 16 89/52 96 Room Air 05/23/16 16:10 2.00 Intake and Output 05/26/16 05/26/16 05/27/16 Cumulative From/Thru 15:00 23:00 07:00 05/22/16 10:46 - 05/27/16 07:00 Intake Total 1160 ml 673 ml 9576 ml Output Total 800 ml 1200 ml 47142 ml Balance 360 ml -527 ml -24695 ml Intake Oral 1160 ml 673 ml 9186 ml IV Total 40 ml Packed Cells 350 ml Output Urine Total 800 ml 1200 ml 14972 ml Other 5400 ml # Bowel Movements 0 Exam General: elderly gentleman in no acute distress, well-developed, well-nourished , appropriately interactive Eyes: PERRLA, anicteric sclera, moist conjunctiva HENT: Normocephalic, atraumatic. pale sclera, moist conjunctivae, and no lid lag. Neck: Supple, mild JVD, trachea midline Cardiovascular: Irregularly irregular. II/ systolic murmur and apex and axilla Pulmonary: Clear to auscultation bilaterally with no crackles, wheezes, or rhonchi. Normal respiratory effort with no use of accessory muscles. Abdomen: Bowel tones present. Moderate distension. nontender Extremities: severe bilateral lower extremity pitting edema to abdomen Skin: Warm and dry, Normal temperature, turgor, and texture; no rashes appreciated. Neurological: Cranial nerves grossly intact. Psychiatric: Normal mood and affect. Alert and oriented to person, place, and time. Lab and Diagnostics Result Diagram: 05/27/16 0230 05/27/16 0230 X-Rays, CTs and MRIs . X-RAY CHEST ONE VIEW, PORTABLE IMPRESSION: 1. Persistent masslike opacity in right upper lobe. Differential diagnoses include pneumonia versus neoplasm. If clinically indicated, PET CT may be helpful for further evaluation. Dictated by: Emilia Gonzalez M.D. on 05/22/2016 at 11:33 US ABDOMEN, LIMITED IMPRESSION: Moderate amount of ascites. Paracentesis site is marked on skin. Dictated by: Emilia Gonzalez M.D. on 05/22/2016 at 13:59 US ABDOMEN, LIMITED FINDINGS: Small amount of ascites seen throughout the abdomen and pelvis with volume not sufficient for therapeutic paracentesis. IMPRESSION: Small amount of ascites. Dictated by: Suhail Cavanaugh RRA Interpreted: Sylvain Chi MD on 05/25/2016 at 14:31 Plan Impression 86yo male with multiple comorbidities including systolic congestive heart failure, chronic kidney disease, cirrhosis, diabetes present with intra- abdominal hypertension and anasarca. 1. Intra-abdominal hypertension/AAA endoleak 2. Acute kidney injury and chronic kidney disease 3. Systolic Heart Failure 4. cirrhosis 5. BPH 6. normocytic anemia 7. Hypokalemia Plan: 1. 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 It appears to be transudative bordering on exudative with significant RBC. - primary team ordered a repeat US evaluation to look for fluid to tap on 05/27 after a report that there was not enough to tap on 05/25 - consider repeat paracentesis for diagnostic only and send again for cytology as the first tap is often falsely negative for malignancy, Albumin supplementation post paracentesis with 25mg albumin x3 - discontinue lasix 80mg BID - begin torsamide 40mg BID morning and afternoon potassium repletion as necessary - obtain Vascular surgeon records from [facility] about AAA endoleak including MRI, noted on CT in April, surgeon reportedly did not feel this needed further intervention 2. Acute kidney injury and chronic kidney disease - WENDY likely secondary to #1 and #3 with poor renal perfusion - treat underlying causes including repeat paracentesis as well as diuretic therapy described below - significant improvement since admission and over the last day with 1U of PRBC - continue to monitor fluid status 3. Systolic Heart Failure - discontinue diuretic therapy with Lasix 80mg BID - begin Torsamide 40mg BID morning and afternoon and Spironolactone 25mg daily 4. cirrhosis - SAAG > 1.1 consistent with portal hypertension of known cirrhosis - patient is at risk for hepatocellular carcinoma, however AFB was negative in April - treat intra-abdominal fluid analysis - Repeat paracentesis and send again for cytology as the first tap is often falsely negative for malignancy 5. BPH - santana in place - pull santana 05/27 and serial bladder scan 6. normocytic anemia - Iron sucrose 200mg every other day - Erythropoietin 60mcg once - monitor 7. hyponatremia - secondary to lasix therapy - add Spironolactone 25mg daily - continue oral supplementation as necessary Virgil Jason DO May 27, 2016 11:31
[2016-05-27] MEDS ORDERED: Iron Sucrose Inj 200 MG in 0.9% Sodium Chloride 100 ML IV ONE (11:35)
--- NOTE | 2016-05-27 15:19 | PCM.PNMED ---
Subjective Date of Service May 27, 2016 Subjective Overnight: No reported events, patient slept through the night. Today: Patient asleep during initial interview, awakes to voice. States he feels just fine, does not state that he has any chest pain or shortness of breath. When asked specifically about his respiratory status regarding his work of breathing on admission versus after his paracentesis versus today he states he still feels as he did after the paracentesis. Exam Vital Signs Vital Sign - Last Date Time Temp Pulse Resp B/P Pulse Ox O2 Delivery O2 Flow Rate FiO2 05/27/16 10:33 76 05/27/16 07:44 36.5 16 89/52 96 Room Air 05/23/16 16:10 2.00 Intake and Output 05/26/16 05/26/16 05/27/16 Cumulative From/Thru 14:59 22:59 06:59 05/22/16 10:46 - 05/27/16 05:00 Intake Total 1160 ml 8903 ml Output Total 800 ml 02205 ml Balance 360 ml -95478 ml Intake Oral 1160 ml 8513 ml IV Total 40 ml Packed Cells 350 ml Output Urine Total 800 ml 73335 ml Other 5400 ml # Bowel Movements 0 Exam General: Laying in hospital bed in no acute distress asleep at beginning of interview easily awakened 1 voice, well-developed, well-nourished, appropriately interactive HEENT: Normocephalic, atraumatic. PERRLA, moist conjunctivae, and no lid lag. Mucous membranes moist Neck: Supple. No JVD. Cardiovascular: Rhythm Irregularly irregular. Regular rate. Soft systolic murmur. Pulmonary: Clear to auscultation bilaterally with no crackles, wheezes, or rhonchi. Normal respiratory effort with no use of accessory muscles, decreased air movement. Abdomen: Bowel tones present. Distended abdomen. Mild fluid wave appreciated. Hepatomegaly appreciated. Extremities: Bilateral lower extremity pitting edema to upper thigh Skin: Normal temperature, turgor, and texture; ecchymosis on upper extremities diffusely. Bandages in place left lateral epicondyle. Neurological: Cranial nerves grossly intact. Psychiatric: Normal mood and affect. Alert and oriented to person, place, and time. IVs and Medications Medications Reviewed: Medications were reviewed in detail Lab and Diagnostics Result Diagram: 05/27/16 0230 05/27/16 0230 X-Rays, CTs and MRIs . X-RAY CHEST ONE VIEW, PORTABLE IMPRESSION: 1. Persistent masslike opacity in right upper lobe. Differential diagnoses include pneumonia versus neoplasm. If clinically indicated, PET CT may be helpful for further evaluation. Dictated by: Emilia Gonzalez M.D. on 05/22/2016 at 11:33 US ABDOMEN, LIMITED IMPRESSION: Moderate amount of ascites. Paracentesis site is marked on skin. Dictated by: Emilia Gonzalez M.D. on 05/22/2016 at 13:59 US ABDOMEN, LIMITED FINDINGS: Small amount of ascites seen throughout the abdomen and pelvis with volume not sufficient for therapeutic paracentesis. IMPRESSION: Small amount of ascites. Dictated by: Suhail Cavanaugh RR Interpreted: Sylvain Chi MD on 05/25/2016 at 14:31 Assessment & Plan Patient is an 86-year-old gentleman with chronic systolic congestive heart failure, chronic atrial fibrillation, pulmonary hypertension and coronary artery disease admitted for anasarca. Hospital day #4. 1. Portal vein hypertension. Present on admission. Improved - Etiology unknown, most likely secondary to hepatorenal syndrome with underlying cirrhosis - Paracentesis in the ED 05/22/2016 with 5.4 L of fluid removed - Repeat paracentesis ordered 05/25/2016 - "Small amount of ascites seen throughout the abdomen and pelvis with volume not sufficient for therapeutic paracentesis." - Repeat paracentesis - ordered and pending 05/27/2016 - Nephrology following. Recommendations per Nephrology appreciated - Stop Lasix 80 twice a day - Continue Spironolactone increased dose to 50 mg daily - Start torsemide 40 mg twice a day - Potassium repletion as necessary - Add Aldactone once Cr is better - Albumin supplementation 25 mg 3 post paracentesis - Patient still has clinical signs and symptoms of anasarca - Concern for a possible AAA endoleak, awaiting previous records - Paracentesis fluid culture showed RBCs 42, 500 2. Acute on Chronic Kidney injury. Present on admission. Improving - Most likely secondary to hepatorenal syndrome - Repeat paracentesis as in #1 - Diuretic therapy as in #1 - Avoid nephrotoxins - Monitor urine output - Has received 1u PRBC - Received darbepoetin 60 mics 05/23/2069 3. Acute on Chronic systolic Heart failure. Present on admission. Ongoing - Echocardiogram 04/27/2016 showed normal LV, EF 45-50%. RV mildly dilated with moderate reduction in function. Pulmonary hypertension - Telemetry - TSH level 3.5 - Discontinue diuretics as in #1 - Torsemide and spironolactone as in #1 - Monitor I's and O's 4. Acute on chronic Anemia. Present on admission. Ongoing - Most likely secondary to CKD and iron deficiency - Stool guaiac positive - Consider GI consult - Patient received Aranesp 60 mg subcutaneous as in #1 - Received 1 unit PRBCs as in #1 - Supplement iron sucrose 200 mg every other day - Monitor with CBC - Hemoglobin stable 8.1 5. Cirrhosis with Thrombocytopenia. Present on admission. Ongoing - Reports distant history of mention of cirrhosis by his surgeon during cholecystectomy - History of CT and ultrasound which also suggests this diagnosis - SAAG greater than 1.1 is consistent with portal hypertension - LFTs within normal limits - Hepatitis panel negative - INR 1.16 on admission - Repeat paracentesis indicated, send out cytology - Continue to monitor 6. Chronic Atrial fibrillation. Present on admission. Ongoing - Currently rate controlled. Med rec does not show rate controlling home medication - Not on anticoagulation - Telemetry 7. COPD. Present admission. Ongoing - Continued home Brovana - DuoNeb PRN 8. Hyperlipidemia, chronic. Present on admission. Ongoing - Continued home atorvastatin 20 mg daily 9. Benign prostatic hyperplasia, chronic. Present on admission. Ongoing - Patient reports urinary retention - Continued home Terazosin - Alatorre cath removed - Monitor output, bladder scan when necessary 10. Diabetes mellitus Type 2, chronic. Present admission. Ongoing - A1c 7.4 last admission 05/04/2016 - Hold home metformin - Low-dose correctional scale insulin - Lantus 10u HS 11. Right upper lobe mass on chest x-ray. Present on admission. Ongoing - Persistent masslike opacity in right upper lobe - Consider follow-up with drum reel cutter as outpatient 12. Acute hyponatremia. Present on admission. Ongoing - Initial sodium on admission 132, most likely secondary to fluid overload - Initially resolved returned at level 132 05/27/2016 - Diuretics as an #1 - Oral repletion when necessary 13. Acute hyperkalemia. Present on admission. Resolved - Likely secondary to WENDY and spironolactone - Potassium levels normalized - Spironolactone as in #1 14. Elevated troponin. Present on admission. Ongoing - Most likely secondary to #2. - Troponin levels 0.172, 0.162, 0.167 - No reported chest pain - EKG showed no ST abnormalities - Acetaminophen as needed for mild pain/fever/headache - Bowel regimen as needed - Antiemetic as needed Disposition: Patient will remain under inpatient status, anticipate discharge in 1-2 days after resolution of acute kidney injury and electrolyte imbalances as well as determining the need for further therapeutic paracentesis. Pain Evaluation: Adequate Pain Control VTE Prophylaxis: Sub-Q Heparin (Unfractionated) (patient has refused this), SCDs VTE Mechanical Devices: Intermittant Pneumatic CD Resuscitation Status: DNR/DNI:Do Not Resuscitate/Intubate Attending Statement The patient was seen and examined together with Dr. Davis on 05/27/2016 and I agree with the history, exam and plan as outlined in the note above. . BLAKE DAVIS DO May 27, 2016 13:17 Leland Noel MD May 29, 2016 09:48
--- NOTE | 2016-05-27 15:32 | NUR ---
Evaluation completed. Please go to "Notes" then click on "Assessments and Notes" (bottom left corner of screen). Then select appropriate discipline tab on top of screen.
--- NOTE | 2016-05-27 15:36 | DRSVH ---
PROCEDURE: US ABDOMEN, LIMITED ([id number]) INDICATIONS: Ascities TECHNIQUE: Real-time focused scanning was performed of the abdomen, with image documentation. COMPARISON: [facility], , [facility]EN L[facility], 05/25/2016, 13:47. FINDINGS: There was minimal ascites in all 4 abdominal quadrants. Insufficient fluid for safe paracen tesis IMPRESSION: Minimal ascites as above. Dictated by: Sylvain Chi M.D. on 05/27/2016 at 15:33 Approved by: Sylvain Chi M.D. on 05/27/2016 at 15:34
[2016-05-27] MEDS: 0.9% Sodium Chloride 250 ML IV SCH (16:12)
[2016-05-27 16:22] LABS: INR 1.06 ratio
[2016-05-27] MEDS: Insulin GLARgine 100 Unit/mL Syringe SUBQ SCH (20:18)
[2016-05-27] MEDS: Albuterol 2.5 mg/3 mL Inhalation Solution NEB PRN (20:38)
--- NOTE | 2016-05-27 23:23 | NUR ---
Skin care Pt's bilateral arm dressing dry and intact. Pt given bed bath, lotion applied, and new gown given. No other issue areas noted on the skin. Pt continues to have bilateral edema to both lower extremities +2 pitting up the the thigh.
[2016-05-28] VITALS (7 sets, daily range): BP systolic 92–114; BP diastolic 41–66; PULSE 75–84; RESP 16–20; O2SAT 92–96
[2016-05-28 03:06] LABS: BASOPHILS % (AUTO) 0.1 % (0-3); EOSINOPHILS % (AUTO) 2.1 % (0-5); MONOCYTES % (AUTO) 11.4 % (4-12); Mean Corpuscular Hemoglobin 25.7 pg (27.0-35.0); Platelet Count 106 bil/L (150-400)
[2016-05-28 03:54] LABS: Magnesium 2.2 mg/dL (1.6-2.6)
[2016-05-28] MEDS: Dorzolamide 2% 10 mL Ophthalmic Solution BOTH_EYES SCH ×2 (08:01→21:31)
[2016-05-28] MEDS: Insulin LISPRO 300 Unit/3 mL Inj SUBQ SCH ×4 (08:01→21:38)
[2016-05-28] MEDS: Fluticasone 250 mCg Inhaler INHALATION SCH ×2 (08:02→21:31)
[2016-05-28] MEDS: Brimonidine 0.2% 5 mL Ophthalmic Solution LEFT_EYE SCH ×3 (08:03→21:31)
[2016-05-28] MEDS: Heparin 5,000 Unit/mL Inj SUBQ SCH ×2 (08:03→16:30)
[2016-05-28] MEDS: Arformoterol 15 mCg/2 mL Inhalation Solution INHALATION SCH ×2 (08:40→22:01)
[2016-05-28] MEDS: Albuterol 2.5 mg/3 mL Inhalation Solution NEB PRN ×2 (08:40→22:01)
--- NOTE | 2016-05-28 11:48 | PCM.PNNEPH ---
Subjective Date of Service May 28, 2016 Subjective The patient feels as if he is healthy enough to go home and follow up as an outpatient. He is scheduled to see his new PCP Tamy Johnson this month. He is aware that he will need to weight himself daily and he bought a new scale for this purpose. He understands that he will need to be on a low salt of DASH diet. He will have good follow up and may need to have his abdomen drained in the future. Exam Vital Signs Vital Sign - Last Date Time Temp Pulse Resp B/P Pulse Ox O2 Delivery O2 Flow Rate FiO2 05/28/16 08:42 78 16 96 Room Air 05/28/16 07:48 102/41 05/28/16 02:41 36.5 05/23/16 16:10 2.00 Intake and Output 05/27/16 05/27/16 05/28/16 Cumulative From/Thru 15:00 23:00 07:00 05/22/16 10:46 - 05/28/16 06:19 Intake Total 626 ml 600 ml 57661 ml Output Total 1450 ml 400 ml 76206 ml Balance -824 ml 200 ml -23527 ml Intake Oral 500 ml 600 ml 14184 ml IV Total 126 ml 166 ml Packed Cells 350 ml Output Urine Total 1450 ml 400 ml 52747 ml Other 5400 ml # Bowel Movements 2 2 Exam General: elderly gentleman in no acute distress, well-developed, well-nourished , appropriately interactive Eyes: PERRLA, anicteric sclera, moist conjunctiva HENT: Normocephalic, atraumatic. pale sclera, moist conjunctivae, and no lid lag. Neck: Supple, mild JVD, trachea midline Cardiovascular: Irregularly irregular. II/ systolic murmur and apex and axilla Pulmonary: Clear to auscultation bilaterally with no crackles, wheezes, or rhonchi. Normal respiratory effort with no use of accessory muscles. Abdomen: Bowel tones present. Moderate distension. nontender : no santana in place significant edema in scrotum Extremities: severe bilateral lower extremity pitting edema to abdomen Skin: Warm and dry, Normal temperature, turgor, and texture; no rashes appreciated. Neurological: Cranial nerves grossly intact. Psychiatric: Normal mood and affect. Alert and oriented to person, place, and time. Lab and Diagnostics Result Diagram: 4/20/17 0240 05/28/16 0240 X-Rays, CTs and MRIs . X-RAY CHEST ONE VIEW, PORTABLE IMPRESSION: 1. Persistent masslike opacity in right upper lobe. Differential diagnoses include pneumonia versus neoplasm. If clinically indicated, PET CT may be helpful for further evaluation. Dictated by: Emilia Gonzalez M.D. on 05/22/2016 at 11:33 US ABDOMEN, LIMITED IMPRESSION: Moderate amount of ascites. Paracentesis site is marked on skin. Dictated by: Emilia Gonzalez M.D. on 05/22/2016 at 13:59 US ABDOMEN, LIMITED FINDINGS: Small amount of ascites seen throughout the abdomen and pelvis with volume not sufficient for therapeutic paracentesis. IMPRESSION: Small amount of ascites. Dictated by: Suhail CHAVARRIA Interpreted: Sylvain Chi MD on 05/25/2016 at 14:31 Additional Diagnostics US ABDOMEN, LIMITED IMPRESSION: Minimal ascites as above. Dictated by: Sylvain Chi M.D. on 05/27/2016 at 15:33 Approved by: Sylvain Chi M.D. on 05/27/2016 at 15:34 Plan Impression 86yo male with multiple comorbidities including systolic congestive heart failure, chronic kidney disease, cirrhosis, diabetes present with intra- abdominal hypertension and anasarca. 1. Intra-abdominal hypertension/AAA endoleak 2. Acute kidney injury and chronic kidney disease 3. Systolic Heart Failure 4. cirrhosis 5. BPH 6. normocytic anemia 7. Hypokalemia Plan: 1. 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 It appears to be transudative bordering on exudative with significant RBC. - primary team ordered a repeat US evaluation to look for fluid to tap on 05/27 with minimum ascites - discontinue lasix 80mg BID - begin torsamide 40mg BID morning and afternoon potassium repletion as necessary - obtain Vascular surgeon records from [place] about AAA endoleak including MRI, noted on CT in April, surgeon reportedly did not feel this needed further intervention 2. Acute kidney injury and chronic kidney disease - WENDY likely secondary to #1 and #3 with poor renal perfusion - treat underlying causes including repeat paracentesis as well as diuretic therapy described below - significant improvement since admission and over the last day with 1U of PRBC - continue to monitor fluid status 3. Systolic Heart Failure - discontinue diuretic therapy with Lasix 80mg BID - begin Torsamide 40mg BID morning and afternoon and Spironolactone 50mg daily 4. cirrhosis - SAAG > 1.1 consistent with portal hypertension of known cirrhosis - patient is at risk for hepatocellular carcinoma, however AFB was negative in April - treat intra-abdominal fluid analysis - Repeat paracentesis and send again for cytology as the first tap is often falsely negative for malignancy 5. BPH - pull santana 05/27 with patient able to urinate - patient had some bleeding from his penis after the santana was removed and this has cleared 6. normocytic anemia - Iron sucrose 200mg twice - Erythropoietin 60mcg once - monitor 7. hyponatremia - secondary to lasix therapy - add Spironolactone 50mg daily Patient has been cleared by nephrology and can follow up as an outpatient. He will need good follow up with a PCP and can be seen by nephrology in 1-2 weeks depending on how easily he can get seen by his PCP. Virgil Jason DO May 28, 2016 11:47
--- NOTE | 2016-05-28 16:53 | PCM.PNMED ---
Subjective Date of Service May 28, 2016 Subjective Overnight: No events reported. He had some bleeding from his penis after Alatorre cath removal. Today: Patient awake and alert laying in hospital bed. Stating he is in no pain overall feels ray to go home but is quite concerned about a dramatic increase in the swelling of his genitals and the last 12 hours Exam Vital Signs Vital Sign - Last Date Time Temp Pulse Resp B/P Pulse Ox O2 Delivery O2 Flow Rate FiO2 05/28/16 16:33 36.4 84 20 114/55 92 Room Air 05/23/16 16:10 2.00 Intake and Output 05/27/16 05/27/16 05/28/16 Cumulative From/Thru 15:00 23:00 07:00 05/22/16 10:46 - 05/28/16 06:19 Intake Total 626 ml 600 ml 52341 ml Output Total 1450 ml 400 ml 54083 ml Balance -824 ml 200 ml -30314 ml Intake Oral 500 ml 600 ml 68290 ml IV Total 126 ml 166 ml Packed Cells 350 ml Output Urine Total 1450 ml 400 ml 92993 ml Other 5400 ml # Bowel Movements 2 2 Exam General: Laying in hospital bed in no acute distress, well-developed, well- nourished, appropriately interactive HEENT: Normocephalic, atraumatic. PERRLA, moist conjunctivae, and no lid lag. Mucous membranes moist Neck: Supple. No JVD. Cardiovascular: Irregularly irregular. Soft systolic murmur. Pulmonary: Clear to auscultation bilaterally with no crackles, wheezes, or rhonchi. Normal respiratory effort with no use of accessory muscles, decreased air movement. Abdomen: Bowel tones present. Mild distension. Mild fluid wave appreciated. Hepatomegaly appreciated. : Marked swelling of penis, soft to palpation, nontender and non- erythematous. Foreskin able to be retracted only slightly no overt signs of infection Extremities: Bilateral lower extremity pitting edema to upper leg Skin: Normal temperature, turgor, and texture; ecchymosis on upper extremities diffusely Neurological: Cranial nerves grossly intact. Psychiatric: Normal mood and affect. Alert and oriented to person, place, and time. IVs and Medications Medications Reviewed: Medications were reviewed in detail Lab and Diagnostics Result Diagram: 05/28/16 0240 05/28/16 0240 X-Rays, CTs and MRIs . X-RAY CHEST ONE VIEW, PORTABLE IMPRESSION: 1. Persistent masslike opacity in right upper lobe. Differential diagnoses include pneumonia versus neoplasm. If clinically indicated, PET CT may be helpful for further evaluation. Dictated by: Emilia Gonzalez M.D. on 05/22/2016 at 11:33 US ABDOMEN, LIMITED IMPRESSION: Moderate amount of ascites. Paracentesis site is marked on skin. Dictated by: Emilia Gonzalez M.D. on 05/22/2016 at 13:59 US ABDOMEN, LIMITED FINDINGS: Small amount of ascites seen throughout the abdomen and pelvis with volume not sufficient for therapeutic paracentesis. IMPRESSION: Small amount of ascites. Dictated by: Suhail Cavanaugh RRDavid Interpreted: Sylvain Chi MD on 05/25/2016 at 14:31 US ABDOMEN, LIMITED IMPRESSION: Minimal ascites as above. Dictated by: Sylvain Chi M.D. on 05/27/2016 at 15:33 Additional Diagnostics US ABDOMEN, LIMITED IMPRESSION: Minimal ascites as above. Dictated by: Sylvain Chi M.D. on 05/27/2016 at 15:33 Approved by: Sylvain Chi M.D. on 05/27/2016 at 15:34 Assessment & Plan Patient is an 86-year-old gentleman with chronic systolic congestive heart failure, chronic atrial fibrillation, pulmonary hypertension and coronary artery disease admitted for anasarca. Hospital day #5. 1. Portal vein hypertension. Present on admission. Improved - Etiology unknown, most likely secondary to hepatorenal syndrome with underlying cirrhosis - Paracentesis in the ED 05/22/2016 with 5.4 L of fluid removed - Repeat paracentesis ordered x2 - "Small amount of ascites seen throughout the abdomen and pelvis with volume not sufficient for therapeutic paracentesis." - Nephrology following. Recommendations per Nephrology appreciated - Stop Lasix 80 twice a day - Continue Spironolactone increased dose to 50 mg daily - Torsemide 40 mg twice a day - Potassium repletion as necessary - Add Aldactone once Cr is better - Albumin supplementation 25 mg 3 post paracentesis - Patient still has clinical signs and symptoms of anasarca - Concern for a possible AAA endoleak, awaiting previous records - Paracentesis fluid culture showed RBCs 42, 500 2. Acute on Chronic Kidney injury. Present on admission. Improving - Most likely secondary to hepatorenal syndrome - Diuretic therapy as in #1 - Avoid nephrotoxins - Monitor urine output - Has received 1u PRBC - Received darbepoetin 60 mics 05/23/2069 - Repeat urinalysis pending secondary to groin swelling as in #9 3. Acute on Chronic systolic Heart failure. Present on admission. Ongoing - Echocardiogram 04/27/2016 showed normal LV, EF 45-50%. RV mildly dilated with moderate reduction in function. Pulmonary hypertension - Telemetry - TSH level 3.5 - Discontinue diuretics as in #1 - Torsemide and spironolactone as in #1 - Monitor I's and O's 4. Acute on chronic Anemia. Present on admission. Ongoing - Most likely secondary to CKD and iron deficiency - Stool guaiac positive - Consider GI consult - Patient received Aranesp 60 mg subcutaneous as in #1 - Received 1 unit PRBCs as in #1 - Supplement iron sucrose 200 mg every other day - Monitor with CBC - Hemoglobin stable 8.1 5. Cirrhosis with Thrombocytopenia. Present on admission. Ongoing - Reports distant history of mention of cirrhosis by his surgeon during cholecystectomy - History of CT and ultrasound which also suggests this diagnosis - SAAG greater than 1.1 is consistent with portal hypertension - LFTs within normal limits - Hepatitis panel negative - INR 1.16 on admission - Continue to monitor 6. Chronic Atrial fibrillation. Present on admission. Ongoing - Currently rate controlled. Med rec does not show rate controlling home medication - Not on anticoagulation - Telemetry 7. COPD. Present admission. Ongoing - Continued home Brovana - DuoNeb PRN 8. Hyperlipidemia, chronic. Present on admission. Ongoing - Continued home atorvastatin 20 mg daily 9. Benign prostatic hyperplasia, chronic. Present on admission. Ongoing - Patient reports urinary retention - Continued home Terazosin - Alatorre cath removed - Monitor output, bladder scan when necessary - Physical exam findings as above regarding new swelling in groin. - Repeat urinalysis 10. Diabetes mellitus Type 2, chronic. Present admission. Ongoing - A1c 7.4 last admission 05/04/2016 - Hold home metformin - Low-dose correctional scale insulin - Lantus 10u HS 11. Right upper lobe mass on chest x-ray. Present on admission. Ongoing - Persistent masslike opacity in right upper lobe - Consider follow-up with duplicator punch operator as outpatient 12. Acute hyponatremia. Present on admission. Ongoing - Initial sodium on admission 132, most likely secondary to fluid overload - Initially resolved returned at level 132 05/27/2016 - Diuretics as an #1 - Oral repletion when necessary 13. Acute hyperkalemia. Present on admission. Resolved - Likely secondary to WENDY and spironolactone - Potassium levels normalized - Spironolactone as in #1 14. Elevated troponin. Present on admission. Ongoing - Most likely secondary to #2. - Troponin levels 0.172, 0.162, 0.167 - No reported chest pain - EKG showed no ST abnormalities - Acetaminophen as needed for mild pain/fever/headache - Bowel regimen as needed - Antiemetic as needed Disposition: Patient will remain under inpatient status, was medically stable for discharge today when upon physical examination found new findings of markedly penile swelling. We will continue to diurese awaiting repeat urinalysis culture if indicated. Pain Evaluation: Adequate Pain Control VTE Prophylaxis: Sub-Q Heparin (Unfractionated) (patient has refused this), SCDs VTE Mechanical Devices: Intermittant Pneumatic CD Resuscitation Status: DNR/DNI:Do Not Resuscitate/Intubate Attending Statement The patient was seen and examined together with Dr. Davis on 05/28/2016 and I agree with the history, exam and plan as outlined in the note above. . BLAKE DAVIS DO May 28, 2016 16:41 Leland Noel MD May 29, 2016 09:48
[2016-05-28] MEDS: 0.9% Sodium Chloride 250 ML IV SCH (17:05)
[2016-05-28 17:11] LABS: APPEARANCE,URINE CLEAR (CLEAR,HAZY); COLOR,URINE YELLOW (YELLOW)
[2016-05-28 17:12] LABS: OCCULT BLOOD,URINE NEGATIVE (NEGATIVE); UROBILINOGEN,URINE NORMAL (NORMAL)
[2016-05-28] MEDS: Insulin GLARgine 100 Unit/mL Syringe SUBQ SCH (21:38)
--- NOTE | 2016-05-29 00:16 | NUR ---
Tube was pulled back in the ER based on CXR results and per
[2016-05-29] MEDS: Heparin 5,000 Unit/mL Inj SUBQ SCH ×2 (00:30→08:30)
[2016-05-29 02:29] LABS: BASOPHILS % (AUTO) 0.1 % (0-3); EOSINOPHILS % (AUTO) 1.2 % (0-5); MONOCYTES % (AUTO) 9.8 % (4-12); Mean Corpuscular Hemoglobin 25.8 pg (27.0-35.0); Mean Corpuscular Volume 88.1 fL (81-100); NEUTROPHILS % (AUTO) 74.7 % (40-74); Platelet Count 112 bil/L (150-400)
[2016-05-29 03:04] VITALS: BP 112/68; PULSE 80; RESP 20; O2SAT 98
--- NOTE | 2016-05-29 06:34 | NUR ---
NOC PT has slept minimal tonight. He reports that he is eager to go home and feels that he is ready. V/S WNL. Lungs have rhonchi t/o. PT has been ORA all night. Dyspnea is noted with exertion. Anasarcas present from about mid abdomen down to his feet. Pt encouraged to elevate scrotum while in bed for the swelling. Taye hose were applied for a few hours before pt asked for them to be removed. PT denies pain. HIs gait is steady and he is up in room ad heavenly. Voiding per urinal. BG at 2200 did not require coverage. IV heplock patent. Will CTM.
[2016-05-29] MEDS: Albuterol 2.5 mg/3 mL Inhalation Solution NEB PRN (07:45)
[2016-05-29 07:46] VITALS: PULSE 84; RESP 18; O2SAT 94
[2016-05-29 09:43] VITALS: BP 105/57; PULSE 88; RESP 18; O2SAT 93
[2016-05-29] MEDS: Dorzolamide 2% 10 mL Ophthalmic Solution BOTH_EYES SCH (09:56)
[2016-05-29] MEDS: Insulin LISPRO 300 Unit/3 mL Inj SUBQ SCH ×2 (09:56→12:16)
[2016-05-29] MEDS: Fluticasone 250 mCg Inhaler INHALATION SCH (09:57)
[2016-05-29] MEDS: Brimonidine 0.2% 5 mL Ophthalmic Solution LEFT_EYE SCH ×2 (09:57→14:15)
--- NOTE | 2016-05-29 10:11 | NUR ---
Social Work- Readiness for Discharge Data: EMR reviewed. Pt is on day 7 of hospitalization for WENDY, CHF, Cirrhosis, and Hyperkalemia per H&P. Pt is nearing discharge, either later today or tomorrow. Per RN notes, pt has been ambulating independently in room. SW spoke with pt at bedside regarding discharge. Pt continues to decline HH. Pt to discharge home with brother to transport via POV. No anticipated discharge needs. SW will continue to follow. Assessment: Pt who is independent at base. Plan: Pt continues to decline HH. Pt to discharge home with brother to transport via POV. No anticipated discharge needs. SW will continue to follow. JANICE Park
[2016-05-29 10:40] VITALS: PULSE 83; RESP 18; O2SAT 94
[2016-05-29] MEDS: Arformoterol 15 mCg/2 mL Inhalation Solution INHALATION SCH (10:40)
[2016-05-29] MEDS ORDERED: Bumetanide 0.25 mg/mL 4 mL Inj IV ONE (10:50)
--- NOTE | 2016-05-29 12:32 | DRSVH ---
PROCEDURE: US ABDOMEN, LIMITED ([id number]) INDICATIONS: 86 year-old male with ascites. TECHNIQUE: Real-time focused scanning was performed of the abdomen, with image documentation. COMPARISON: [facility], ABDOMEN [facility], 05/27/2016, 14:24. [facility], ABDOMEN [facility], 05/25/2016, 13:47. [facility], ABDOMEN [facility], 05/22/2016, 14:38. FINDINGS: There is small overall scattered abdominal ascites, with largest pocket in the right upper quadrant. IMPRESSION: Overall small scattered abdominal ascites, with largest pocket in the right upper quadran t. Paracentesis was subsequently canceled. Dictated by: John Spann M.D. on 05/29/2016 at 12:29 Approved by: John Spann M.D. on 05/29/2016 at 12:30
[2016-05-29 12:52] VITALS: BP 109/65; PULSE 91; RESP 17; O2SAT 93
[2016-05-29] MEDS ORDERED: SPIR50TA2 PO (13:49)
[2016-05-29] MEDS ORDERED: TORS20TA PO ×2 (13:49)
--- NOTE | 2016-05-29 13:58 | PCM.DIMED ---
Discharge Instructions Date of Service May 29, 2016 Dates of Hospitalization May 22, 2016 at 13:22 Discharge Diagnosis Discharge Diagnosis 1. Portal vein hypertension 2. Acute on Chronic Kidney injury 3. Acute on Chronic systolic Heart failure 4. Acute on chronic Anemia 5. Cirrhosis with Thrombocytopenia 6. Chronic Atrial fibrillation 7. COPD 8. Hyperlipidemia 9. Benign prostatic hyperplasia 10. Diabetes mellitus Type 2 11. Right upper lobe mass on chest x-ray 12. Acute hyponatremia 13. Acute hyperkalemia 14. Elevated troponin Medication Instructions Please continue to take your regularly prescribed medications. The nephrology service followed you throughout your stay and their recommendations are to discharge with the following medications. 1. Please take the medication torsemide 40 mg by mouth every morning 2. Please take the medication torsemide 40 mg by mouth every afternoon and between 12 PM and 2 PM 3. Your spironolactone dose has been increased from 25mg to 50 mg. Please take 50 mg of this medication every day by mouth. Diet Low fat, Low Sodium Activity Limited until seen by PCP Call your provider Fever or Chills, Shortness of breath, Bleeding, Chest pain, Vomitting, Excessive diarrhea, Weakness (unilateral) Patient Instructions Please keep your scheduled appointment with your primary care physician Dr. Fritz on 06/03/2016. Please follow-up with Dr. Banks at the nephrology clinic in one week. Follow-up Provider: Lam Duron MD Follow-up with PCP in: 1 week Provider: Terra Banks MD Follow-up in: 1 week BLAKE CASTRO DO May 29, 2016 13:58
--- NOTE | 2016-05-29 14:03 | PCM.DC.MED ---
Discharge Summary Date of Service May 29, 2016 Dates of Hospitalization Date of Hospital Admission May 22, 2016 at 13:22 Date of Discharge: May 29, 2016 Providers: Admitting Physician: Rocael Spicer MD Primary Care Physician: Lam Duron MD Attending Physician: Rocael Spicer MD Diagnosis at Time of Discharge Diagnosis at Time of Discharge 1. Portal vein hypertension 2. Acute on Chronic Kidney injury 3. Acute on Chronic systolic Heart failure 4. Acute on chronic Anemia 5. Cirrhosis with Thrombocytopenia 6. Chronic Atrial fibrillation 7. COPD 8. Hyperlipidemia 9. Benign prostatic hyperplasia 10. Diabetes mellitus Type 2 11. Right upper lobe mass on chest x-ray 12. Acute hyponatremia 13. Acute hyperkalemia 14. Elevated troponin Consultations Dr. Celestine D.O., nephrology Procedures XRay, CTs & MRIs . X-RAY CHEST ONE VIEW, PORTABLE IMPRESSION: 1. Persistent masslike opacity in right upper lobe. Differential diagnoses include pneumonia versus neoplasm. If clinically indicated, PET CT may be helpful for further evaluation. Dictated by: Emilia Gonzalez M.D. on 05/22/2016 at 11:33 US ABDOMEN, LIMITED IMPRESSION: Moderate amount of ascites. Paracentesis site is marked on skin. Dictated by: Emilia Gonzalez M.D. on 05/22/2016 at 13:59 US ABDOMEN, LIMITED FINDINGS: Small amount of ascites seen throughout the abdomen and pelvis with volume not sufficient for therapeutic paracentesis. IMPRESSION: Small amount of ascites. Dictated by: Suhail Cavanaugh [facility] Interpreted: Sylvain Chi MD on 05/25/2016 at 14:31 US ABDOMEN, LIMITED IMPRESSION: Minimal ascites as above. Dictated by: Sylvain Chi M.D. on 05/27/2016 at 15:33 US ABDOMEN, LIMITED IMPRESSION: Overall small scattered abdominal ascites, with largest pocket in the right upper quadrant. Paracentesis was subsequently canceled. Dictated by: John Spann M.D. on 05/29/2016 at 12:29 Other Diagnostics US ABDOMEN, LIMITED IMPRESSION: Minimal ascites as above. Dictated by: Sylvain Chi M.D. on 05/27/2016 at 15:33 Approved by: Sylvain Chi M.D. on 05/27/2016 at 15:34 Brief History History and physical per Dr. Spicer 05/22/2016 "Chief complaint shortness of breath HISTORY was OBTAINED FROM PATIENT / [employer] NOTES History of present illness 86-year-old male, last hospitalized 2 weeks ago for CHF exacerbation, presents to ER for 1 day history of shortness of breath during normal tests associated lower body/scrotal swelling. upon discharge 2 weeks ago, loop diuretic increased , spironolactone added and on ACEI/K supplementation. abdominal girth increased since discharge. In the ER 1 L normal saline, calcium gluconate, PVR > 300s, santana placed, 5.4L paracentesis Patient was admitted 2 weeks ago with fluid overload treated as right sided CHF w/ stable EF, contributory congestive liver, treated with diuresis and UTI, nephrology, and added inpatient metolazone, BPH and obstructive uropathy evaluated at that time Review of Systems - none of the following - F/C/sick contact / wt change/ TOMAS / lightheaded / dizziness / sob / cough / cp / acid reflux / n/v/ / bleeding/ bruising / leg swelling / change in voiding / yeast infections / rash ambulates C/O DIARRHEA SINCE SPIRONOLACTONE STARTED" Hospital Course Patient is an 86-year-old gentleman with chronic systolic congestive heart failure, chronic atrial fibrillation, pulmonary hypertension and coronary artery disease admitted for anasarca. 1. Portal vein hypertension. - Etiology unknown, most likely secondary to hepatorenal syndrome with underlying cirrhosis - Paracentesis in the ED 05/22/2016 with 5.4 L of fluid removed - - Albumin supplementation 25 mg 3 post paracentesis - Repeat paracentesis ordered x4 - "Small amount of ascites seen throughout the abdomen and pelvis with volume not sufficient for therapeutic paracentesis." - Nephrology followed patient throughout hospital admission - Stoped Lasix 80 twice a day - Spironolactone - increased dose to 50 mg daily - Torsemide 40 mg twice a day - Potassium repletion as necessary - Clinical signs and symptoms of anasarca remained throughout hospital stay - Concern for a possible AAA endoleak - continued monitoring as outpatient - Discharged home in stable condition with follow-up scheduled primary care provider as well as mobility developer in the next week for close monitoring 2. Acute on Chronic Kidney injury - Most likely secondary to hepatorenal syndrome - Diuretic therapy as in #1 - Avoided nephrotoxins - Monitored urine output - Received 1u PRBC - Received darbepoetin 60 mics 05/23/2069 - Repeat urinalysis and pulmonary showed no growth 3. Acute on Chronic systolic Heart failure - Echocardiogram 04/27/2016 showed normal LV, EF 45-50%. RV mildly dilated with moderate reduction in function. Pulmonary hypertension - Telemetry throughout hospital admission - TSH level 3.5 - Discontinued diuretics as in #1 - Torsemide and spironolactone as in #1 - Monitored I's and O's 4. Acute on chronic Anemia - Most likely secondary to CKD and iron deficiency - Stool guaiac positive - Patient received Aranesp 60 mg subcutaneous as in #1 - Received 1 unit PRBCs as in #1 - Supplement iron sucrose 200 mg every other day - Monitor with CBC - Hemoglobin stable at time of discharge - Recommended GI follow-up as outpatient 5. Cirrhosis with Thrombocytopenia - Reported distant history of mention of cirrhosis by his surgeon during cholecystectomy - History of CT and ultrasound which also suggests this diagnosis - SAAG greater than 1.1 is consistent with portal hypertension - LFTs within normal limits - Hepatitis panel negative - INR 1.16 on admission - Continue to monitor as outpatient 6. Chronic Atrial fibrillation - Rate controlled during admission. - Med rec did not show rate controlling home medication - Not on anticoagulation for home medications - Telemetry throughout hospital admission 7. COPD - Continued home Brovana - DuoNeb PRN 8. Hyperlipidemia - Continued home atorvastatin 20 mg daily 9. Benign prostatic hyperplasia - Patient reports urinary retention - Continued home Terazosin - Santana cath removed - Monitor output, bladder scan when necessary 10. Diabetes mellitus Type 2 - A1c 7.4 last admission 05/04/2016 - Held home metformin while in hospital - Low-dose correctional scale insulin - Lantus 10u HS 11. Right upper lobe mass on chest x-ray - Persistent masslike opacity in right upper lobe - Consider follow-up with sales account specialist as outpatient - Patient aware 12. Acute hyponatremia - Initial sodium on admission 132, most likely secondary to fluid overload - Initially resolved returned at level 132 05/27/2016 - Diuretics as an #1 - Oral repletion when necessary throughout stay 13. Acute hyperkalemia - Likely secondary to WENDY and spironolactone - Potassium levels normalized - Spironolactone as in #1 14. Elevated troponin - Most likely secondary to #2. - Troponin levels 0.172, 0.162, 0.167 - No reported chest pain - EKG showed no ST abnormalities Exam Vital Signs (Last) Date Time Temp Pulse Resp B/P Pulse Ox O2 Delivery O2 Flow Rate FiO2 05/29/16 12:52 36.3 91 17 109/65 93 Room Air 05/23/16 16:10 2.00 Exam General: Laying in hospital bed in no acute distress, well-developed, well- nourished, appropriately interactive. In good spirits HEENT: Normocephalic, atraumatic. PERRLA, moist conjunctivae, and no lid lag. Mucous membranes moist Neck: Supple. No JVD. Cardiovascular: Irregularly irregular. Soft systolic murmur. Pulmonary: Clear to auscultation bilaterally with no crackles, wheezes, or rhonchi. Normal respiratory effort with no use of accessory muscles, decreased air movement. Abdomen: Bowel tones present. Distended abdomen. Hepatomegaly appreciated. : Marked swelling of penis, approved from yesterday. Penis is Soft to palpation, nontender and non-erythematous. Foreskin able to be retracted only slightly no overt signs of infection Extremities: Bilateral lower extremity pitting edema to upper leg Skin: Normal temperature, turgor, and texture; ecchymosis on upper extremities diffusely Neurological: Cranial nerves grossly intact. Psychiatric: Normal mood and affect. Alert and oriented to person, place, and time. Test 05/22/16 10:30 05/22/16 12:52 05/22/16 15:00 05/23/16 02:50 Lactate Dehydrogenase 330U/L (100-190) Pro-B-Type Natriuretic Peptide 7774pg/mL (0-486) Hold Urine Received (Received) Body Fluid Source Peritoneal fluid Body Fluid Color [place] (Clear) Body Fluid Appearance Cloudy Body Fluid WBC 75/mm3 Body Fluid RBC 56326/mm3 Body Fluid Polynuclear WBCs 0% Body Fluid Lymphocytes 46% Body Fluid Monocytes 20% Body Fluid Eosinophils 0% Body Fluid Basophils 0% Body Fluid Albumin 2.3g/dL (.) Body Fluid Total Bilirubin 0.7mg/dL Body Fluid Lactate Dehydrogenase 157U/L Body Fluid Amylase 79U/L Peritoneal Fluid Glucose 195mg/dL Phosphorus Level 4.9mg/dL (2.5-4.9) Test 05/23/16 08:20 05/23/16 16:45 05/27/16 02:30 05/27/16 15:55 Troponin T 0.167ug/L (0.0-0.011) Iron Level 18ug/dL (35-150) Total Iron Binding Capacity 356ug/dL (250-450) Percent Iron Saturation 5%sat (15-50) Unsaturated Iron Binding 338.4ug/dL Thyroid Stimulating Hormone (TSH) 3.510uIU/mL (0.450-4.500) Hepatitis A IgM Antibody Negative (Negative) Hepatitis B Surface Antigen Negative (Negative) Hepatitis B Core IgM Antibody Negative (Negative) Hepatitis C Antibody <0.1s/co ratio (0.0-0.9) Hepatitis C Comment Comment (.) Uric Acid 11.8mg/dL (2.6-7.2) Prothrombin Time 11.4sec (8.1-12.5) Prothromb Time International Ratio 1.06ratio Test 05/28/16 02:40 05/28/16 16:38 05/29/16 02:03 Magnesium Level 2.2mg/dL (1.6-2.6) Urine Color Yellow (YELLOW) Urine Appearance Clear (CLEAR,HAZY) Urine pH 6.0 (5.0-8.0) Urine Specific [place] <1.005 (1.003-1.035) Urine Protein Negativemg/dL (NEG,TRACE) Urine Glucose (UA) Negativemg/dL (NEGATIVE) Urine Ketones Negativemg/dL (NEGATIVE) Urine Occult Blood Negative (NEGATIVE) Urine Nitrite Negative (NEGATIVE) Urine Bilirubin Negative (NEGATIVE) Urine Urobilinogen Normalmg/dL (NORMAL) Urine Leukocyte Esterase Trace (NEGATIVE) Urine RBC 0-2/hpf (0-2) Urine WBC 0-5/hpf (0-5) Urine Epithelial Cells Few/hpf (NONE-MOD) Urine Crystals None seen (NONE SEEN) Urine Bacteria Few/hpf (NONE-FEW) Urine Hyaline Casts None/lpf (NONE) Urine Granular Casts None seen (NONE SEEN) Urine Waxy Casts None seen (NONE SEEN) Urine Red Blood Cell Casts None seen (NONE SEEN) Urine White Blood Cell Casts None seen (NONE SEEN) Urine Mucus None seen (None Seen) Urine Trichomonas None seen (NONE SEEN) Urine Yeast None (NONE SEEN) Urinalysis Comment None Urine Culture Reflexed Indicated White Blood Count 7.3th/mm3 (3.8-10.1) Red Blood Count 3.29mil/mm3 (4.40-5.80) Hemoglobin 8.5g/dL (13.8-17.2) Hematocrit 29.0% (41.0-50.0) Mean Corpuscular Volume 88.1fL (81-100) Mean Corpuscular Hemoglobin 25.8pg (27.0-35.0) Mean Corpuscular Hemoglobin Concent 29.3% (32.0-37.0) Red Cell Distribution Width 21.5% (12.3-15.4) Platelet Count 112bil/L (150-400) Neutrophils (%) (Auto) 74.7% (40-74) Lymphocytes (%) (Auto) 13.8% (14-46) Monocytes (%) (Auto) 9.8% (4-12) Eosinophils (%) (Auto) 1.2% (0-5) Basophils (%) (Auto) 0.1% (0-3) Sodium Level 133mEq/L (134-144) Potassium Level 4.3mEq/L (3.5-5.2) Chloride Level 92mEq/L (97-108) Carbon Dioxide Level 23mmol/L (18-29) Blood Urea Nitrogen 78mg/dL (8-27) Creatinine 2.58mg/dL (0.76-1.27) Estimat Glomerular Filtration Rate 25mL/min (>59) Glucose Level 157mg/dL (60-99) Calcium Level 8.4mg/dL (8.5-10.1) Total Bilirubin 1.3mg/dL (0.0-1.2) Aspartate Amino Transf (AST/SGOT) 38U/L (0-50) Alanine Aminotransferase (ALT/SGPT) 22U/L (0-44) Alkaline Phosphatase 119U/L (25-160) Total Protein 5.4g/dL (6.4-8.4) Albumin 3.5g/dL (3.4-5.0) Procalcitonin 0.21ng/mL (0.00-0.08) Discharge Medications Discharge Medications Allopurinol (Allopurinol) 100 Mg Tablet 100 MG PO QAM (Reported) Arformoterol Tartrate (Brovana) 15 Mcg/2 Ml Vial.neb 15 MCG IH BID (Reported) Ascorbic Acid (Vitamin C) 500 Mg Capsule.er 500 MG PO QAM (Reported) Aspirin (Aspirin) 81 Mg Tablet 81 MG PO QAM (Reported) Atorvastatin Calcium (Atorvastatin Calcium) 20 Mg Tablet 20 MG PO HS (Reported) Brimonidine Tartrate (Brimonidine 0.2% Oph Soln) 5 Ml Drops 1 GTT LEFT_EYE TID ( Reported) Cider Vinegar (Apple Cider Vinegar) 600 Mg Capsule 600 MG PO DAILY (Reported) Cyanocobalamin (Vitamin B-12) (Vitamin B-12) 50 Mcg Tablet 100 MCG PO DAILY ( Reported) Dorzolamide (Dorzolamide) 10 Ml Drops 1 GTT BOTH_EYES BID (Reported) Fluticasone Propionate (Flovent HFA 220 mcg) 12 Gm Aer.w.adap 1 PUFF IH BID ( Reported) Fosinopril Sodium (Fosinopril Sodium) 20 Mg Tablet 10 MG PO HS (Reported) Latanoprost (Latanoprost) 2.5 Ml Drops 1 GTT BOTH_EYES HS (Reported) Metformin ER (Metformin ER) 500 Mg Tablet 500 MG PO QAM (Reported) Multivitamin (Multivitamins) 1 Each Capsule 1 EACH PO DAILY (Reported) Nitroglycerin 0.2 mg/hr Patch (Nitroglycerin 0.2 mg/hr Patch) 1 Each Patch 0.2 MG TRANSDERM QPM (Reported) APPLY AT 1900, OFF AT 7 AM Potassium Chloride (Potassium Chloride) 20 Meq Tab.er.prt 20 MEQ PO BID Prescribed by: JARON MCKEON MD Spironolactone (Spironolactone) 50 Mg Tablet 50 MG PO DAILY Prescribed by: BLAKE CASTRO DO Terazosin (Terazosin) 10 Mg Capsule 10 MG PO HS (Reported) Torsemide (Demadex) 20 Mg Tablet 40 MG PO MORNING Prescribed by: BLAKE CASTRO DO Torsemide (Demadex) 20 Mg Tablet 40 MG PO NOON Prescribed by: BLAKE CASTRO DO As needed Insulin Glargine (Lantus U100 Solostar Insulin Pen) 100 Unit/1 Ml Insuln.pen 12 UNIT SUBQ QAM PRN PRN blood sugar >150 (Reported) Levalbuterol HCl (Xopenex Concentrate) 1.25 Mg/0.5 Ml Vial.neb 1.25 MG IH BID PRN PRN For Shortness of Breath (Reported) Additional med instructions Please continue to take your regularly prescribed medications. The nephrology service followed you throughout your stay and their recommendations are to discharge with the following medications. 1. Please take the medication torsemide 40 mg by mouth every morning 2. Please take the medication torsemide 40 mg by mouth every afternoon and between 12 PM and 2 PM 3. Your spironolactone dose has been increased from 25mg to 50 mg. Please take 50 mg of this medication every day by mouth. Followup Plan Disposition: Discharged home in stable condition Follow-up plan We will follow up with primary care provider and nephrology Discharge Diet: Low fat, Low Sodium Discharge Activity: Limited until seen by PCP Patient Instructions Please keep your scheduled appointment with your primary care physician Dr. Fritz on 06/03/2016. Please follow-up with Dr. Banks at the nephrology clinic in one week. Follow-up Provider: Lam Duron MD Follow-up with PCP in: 1 week Provider: Terra Banks MD Follow-up in: 1 week Time spent 35 min Attending Statement The patient was seen and examined together with House Staff/Resident on 05/29/16 and I agree with the history, exam and plan as outlined in the note above. copies to: Terra Banks MD; Lam Duron MD, GILES A DO May 29, 2016 14:03 iVral Bledsoe Jun 02, 2016 19:24 1. Please take the medication torsemide 40 mg by mouth every morning 2. Please take the medication torsemide 40 mg by mouth every afternoon and between 12 PM and 2 PM 3. Your spironolactone dose has been increased from 25mg to 50 mg. Please take 50 mg of this medication every day by mouth. Followup Plan Discharge Diet: Low fat, Low Sodium Discharge Activity: Limited until seen by PCP Patient Instructions Please keep your scheduled appointment with your primary care physician Dr. Fritz on 06/03/2016. Please follow-up with Dr. Banks at the nephrology clinic in one week. Follow-up Provider: Lam Duron MD Follow-up with PCP in: 1 week Provider: Terra Banks MD Follow-up in: 1 week BLAKE CASTRO DO May 29, 2016 14:03
--- NOTE | 2016-05-29 14:49 | PCM.PNNEPH ---
Subjective Date of Service May 29, 2016 Subjective Patient states that he feels like he is still improving. The patient states that his genitals seen to be decreasing in size. The patient states that he has not seen any blood in his urine since the Santana cath was initially removed. The patient noticed some numbness in his left leg with the compression stockings that has improved stocking was removed. The patient states that he feels ready to go home and will have close follow-up. Exam Vital Signs Vital Sign - Last Date Time Temp Pulse Resp B/P Pulse Ox O2 Delivery O2 Flow Rate FiO2 05/29/16 12:52 36.3 91 17 109/65 93 Room Air 05/23/16 16:10 2.00 Intake and Output 05/28/16 05/28/16 05/29/16 Cumulative From/Thru 15:00 23:00 07:00 05/22/16 10:46 - 05/29/16 06:05 Intake Total 1170 ml 470 ml 47389 ml Output Total 1175 ml 1025 ml 00518 ml Balance -5 ml -555 ml -29155 ml Intake Oral 1170 ml 470 ml 98453 ml IV Total 166 ml Packed Cells 350 ml Output Urine Total 1175 ml 1025 ml 07945 ml Other 5400 ml # Voids 4 4 # Bowel Movements 1 2 5 Exam General: elderly gentleman in no acute distress, well-developed, well-nourished , appropriately interactive Eyes: PERRLA, anicteric sclera, moist conjunctiva HENT: Normocephalic, atraumatic. pale sclera, moist conjunctivae, and no lid lag. Neck: Supple, mild JVD, trachea midline Cardiovascular: Irregularly irregular. II/ systolic murmur and apex and axilla Pulmonary: Clear to auscultation bilaterally with no crackles, wheezes, or rhonchi. Normal respiratory effort with no use of accessory muscles. Abdomen: Bowel tones present. Moderate distension. nontender : no santana in place significant edema in scrotum Extremities: severe bilateral lower extremity pitting edema to abdomen Skin: Warm and dry, Normal temperature, turgor, and texture; no rashes appreciated. Neurological: Cranial nerves grossly intact. Psychiatric: Normal mood and affect. Alert and oriented to person, place, and time. Lab and Diagnostics Result Diagram: 05/29/1620205/29/16 0203 X-Rays, CTs and MRIs . X-RAY CHEST ONE VIEW, PORTABLE IMPRESSION: 1. Persistent masslike opacity in right upper lobe. Differential diagnoses include pneumonia versus neoplasm. If clinically indicated, PET CT may be helpful for further evaluation. Dictated by: Emilia Gonzalez M.D. on 05/22/2016 at 11:33 US ABDOMEN, LIMITED IMPRESSION: Moderate amount of ascites. Paracentesis site is marked on skin. Dictated by: Emilia Gonzalez M.D. on 05/22/2016 at 13:59 US ABDOMEN, LIMITED FINDINGS: Small amount of ascites seen throughout the abdomen and pelvis with volume not sufficient for therapeutic paracentesis. IMPRESSION: Small amount of ascites. Dictated by: Suhail Cavanaugh [facility] Interpreted: Sylvain Chi MD on 05/25/2016 at 14:31 US ABDOMEN, LIMITED IMPRESSION: Minimal ascites as above. Dictated by: Sylvain Chi M.D. on 05/27/2016 at 15:33 Additional Diagnostics US ABDOMEN, LIMITED IMPRESSION: Minimal ascites as above. Dictated by: Sylvain Chi M.D. on 05/27/2016 at 15:33 Approved by: Sylvain Chi M.D. on 05/27/2016 at 15:34 Plan Impression 86yo male with multiple comorbidities including systolic congestive heart failure, chronic kidney disease, cirrhosis, diabetes present with intra- abdominal hypertension and anasarca. 1. Intra-abdominal hypertension/AAA endoleak 2. Acute kidney injury and chronic kidney disease 3. Systolic Heart Failure 4. cirrhosis 5. BPH 6. normocytic anemia 7. Hypokalemia Plan: 1. 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 It appears to be transudative bordering on exudative with significant RBC. - primary team ordered a repeat US evaluation to look for fluid to tap on 05/27 with minimum ascites - discontinue lasix 80mg BID - torsamide 40mg BID morning and afternoon - Spironolactone 50 mg daily - attempted to obtain Vascular surgeon records from [place] about AAA endoleak including MRI, noted on CT in April, surgeon reportedly did not feel this needed further intervention - Patient checked repeatedly with ultrasounds to evaluate for possible paracentesis while in hospital however always negative for large enough fluid pockets to safely perform paracentesis - Patient will likely need close follow-up and may require another paracentesis given increased distention since initial paracentesis 2. Acute kidney injury and chronic kidney disease - WENDY likely secondary to #1 and #3 with poor renal perfusion - treat underlying causes including repeat paracentesis as well as diuretic therapy described below - significant improvement since admission and over the last day with 1U of PRBC - continue to monitor fluid status 3. Systolic Heart Failure - discontinue diuretic therapy with Lasix 80mg BID - begin Torsamide 40mg BID morning and afternoon and Spironolactone 50mg daily 4. cirrhosis - SAAG > 1.1 consistent with portal hypertension of known cirrhosis - patient is at risk for hepatocellular carcinoma, however AFB was negative in April - intra-abdominal fluid sent for analysis ulnar negative today - Repeat paracentesis will likely be necessary as an outpatient and fluid should be sent for cytology as the first tap is often falsely negative for malignancy 5. BPH - pull santana 05/27 with patient able to urinate - patient had some bleeding from his penis after the santana was removed and this has cleared 6. normocytic anemia - Iron sucrose 200mg twice - Erythropoietin 60mcg once - monitor 7. hyponatremia - secondary to lasix therapy - add Spironolactone 50mg daily Patient has been cleared by nephrology and can follow up as an outpatient. He will need good follow up with a PCP and can be seen by nephrology in 1-2 weeks depending on how easily he can get seen by his PCP. Virgil Jason DO May 29, 2016 14:49
--- NOTE | 2016-05-29 15:45 | NUR ---
Discharge Pt. discharged to home and took all his belongings from [address] [facility].Pt. was given educational material on new prescriptions spironolactone and torsemide. Pt. was also given educational material on CHF, Acute Kidney Injury and Hyperkalemia. Pt. was also instructed to go to his follow up appointment with nephrology at 1420 on 06/02/[address] Duron on 06/08/2016 at 0940. Pt. stated he understood and he would go. IV DC'D on left arm intact and asymptomatic. Pt. was wheeled out and a family member took him home.
== END 2016-05-29 15:45 | disposition home or self-care (01) | DRG 291 ==
LOC: SED 10:32 → PCC 13:22 → CCU 13:22
PROVIDERS: ADMIT Urology; ATTEND Urology
PROC: 0W9G3ZX Drainage of Peritoneal Cavity, Percutaneous Approach, Diagnostic (ICD-10-PCS; principal; 2016-05-22)
PROC: 30233N1 Transfusion of Nonautologous Red Blood Cells into Peripheral Vein, Percutaneous Approach (ICD-10-PCS; 2016-05-24)
DX: I13.0 Hypertensive heart and chronic kidney disease with heart failure and stage 1 through stage 4 chronic kidney disease, or unspecified chronic kidney disease (principal); I50.23 Acute on chronic systolic (congestive) heart failure; N17.9 Acute kidney failure, unspecified; N18.4 Chronic kidney disease, stage 4 (severe); R18.8 Other ascites; K76.6 Portal hypertension; J43.9 Emphysema, unspecified; E11.8 Type 2 diabetes mellitus with unspecified complications; I25.10 Atherosclerotic heart disease of native coronary artery without angina pectoris; I48.2 Chronic atrial fibrillation; N40.1 Benign prostatic hyperplasia with lower urinary tract symptoms; R33.8 Other retention of urine; E11.21 Type 2 diabetes mellitus with diabetic nephropathy; D63.1 Anemia in chronic kidney disease; E78.5 Hyperlipidemia, unspecified; D69.6 Thrombocytopenia, unspecified; Z66 Do not resuscitate; R91.8 Other nonspecific abnormal finding of lung field; E87.5 Hyperkalemia; Z79.01 Long term (current) use of anticoagulants; Z87.891 Personal history of nicotine dependence; Z79.82 Long term (current) use of aspirin; Z99.81 Dependence on supplemental oxygen; Z79.4 Long term (current) use of insulin

== ENCOUNTER 2016-06-02 16:11 | Inpatient (IN) | payer MEDICARE, OTHER ==
[~2016-06-02] VITALS: Ht 182.9 cm; Wt 96.3 kg
[~2016-06-02 16:11] MED LIST changes: -POTA10TA38 PO; -SPIR25TA PO; +SPIR50TA2 PO; +TORS20TA PO; -TORS20TA3 PO
[2016-06-02 16:45] VITALS: BP 102/56; PULSE 73; PULSE 74; RESP 16; O2SAT 98
--- NOTE | 2016-06-02 17:18 | NUR ---
Admit pt arrived from Nephrology office by wheelchair. A&O x3, able to walk but with SOB. Pt 98% on RA, RR in 20s, able to recline fairly flat in bed. Afebrile, TELE afib with PVCs in the 70s-90s. Brother at bedside, and attending also at bedside. PIV started by IV therapy. Pt oriented to room and call light.
[2016-06-02] MEDS ORDERED: Ondansetron 2 mg/mL 2 mL Inj IVPUSH PRN (17:20)
[2016-06-02] MEDS ORDERED: Polyethylene Glycol (PEG) 17 Gm Powder PO PRN (17:20)
[2016-06-02] MEDS ORDERED: Alum-Mag Hydrox-Simeth 30 mL Suspension PO PRN (17:20)
[2016-06-02 17:31] LABS: APPEARANCE,URINE CLEAR (CLEAR,HAZY); COLOR,URINE YELLOW (YELLOW); OCCULT BLOOD,URINE NEGATIVE (NEGATIVE); UROBILINOGEN,URINE NORMAL (NORMAL)
[2016-06-02 18:11] LABS: BASOPHILS % (AUTO) 0.2 % (0-3); EOSINOPHILS % (AUTO) 1.4 % (0-5); MONOCYTES % (AUTO) 8.8 % (4-12); Mean Corpuscular Hemoglobin 26.5 pg (27.0-35.0); Mean Corpuscular Volume 90.7 fL (81-100); NEUTROPHILS % (AUTO) 78.8 % (40-74); Platelet Count 69 bil/L (150-400)
--- NOTE | 2016-06-02 18:13 | PCM.HPMED ---
Subjective Date of Service Jun 02, 2016 Primary Provider: Admitting Physician: Tamy Gonzalez DO Primary Care Physician: Tamy Johnson Attending Physician: Tamy Gonzalez DO Chief Complaint: Generalized swelling, shortness of breath History of Present Illness: Patient is a pleasant 86-year-old male with systolic heart failure, atrial fibrillation, chronic kidney disease, hypertension, type II diabetes, COPD, coronary artery disease status post CABG, status post AAA repair, and liver cirrhosis presenting as a referral from nephrology clinic with worsening lower extremity swelling, scrotal swelling, difficulty urinating and shortness of breath. Patient has multiple hospitalizations due to CHF exacerbation and cardiorenal syndrome. He was most recently hospitalized on 05/26 was just discharged approximately 4 days ago. During that hospitalization, the patient had abdominal paracentesis with 5L of ascites removed. His renal function improved with diuresis and creatinine was 2.58 on discharge. The patient was also found to have urinary retention requiring Alatorre catheter placement. The patient followed up today with athletic training internship, Dr. Hammond, where he was found to have worsening lower extremity swelling, scrotal swelling and dyspnea. It is noted that he has gained approximately 20 lbs over 3-4 days. The patient was referred to [facility] for further management. At time of visit, the patient reports some abdominal fullness and shortness of breath but remarks that it is only "half as bad" as during his previous hospitalization. Patient reports taking his medications as directed. He reports pain in his groin from the swelling but denies any difficulty urinating, hematuria, or dysuria. Patient denies chest pain, fever, chills, cough, nausea, emesis, abdominal pain, lightheadedness, dizziness, syncope. Vitals on admit: temp 36.7, HR 74, RR 16 satting 98% on room air, BP 102/56. Review of Systems: A comprehensive review of systems was conducted with the patient and found to be negative except as above in the History of Present Illness. Allergies Coded Allergies: Heparin Analogues (Verified Allergy, Severe, bleeding, 06/02/16) warfarin (Verified Allergy, Severe, bleeding, 06/02/16) dabigatran etexilate (Verified Adverse Reaction, Severe, bled into lungs, 06/02/16) Home Medications Allopurinol 100mg daily Arformoterol Tartrate (Brovana) 15 mcg/2 ml neulizer. Inhale BID Ascorbic Acid 500mg daily Aspirin 81mg daily Atorvastatin Calcium 20mg QHS Brimonidine Tartrate (Brimonidine 0.2% Oph Solution) 5 Ml Drops 1 gtt left eye TID Cider Vinegar 600mg daily Cyanocobalamin (Vitamin B-12) 100mcg PO daily Dorzolamide 10ml drops 1 gtt OU BID Fluticasone Propionate (Flovent HFA 220 mcg) 1 puff BID Fosinopril 10mg HS Latanoprost 2.5 Ml Drops. 1 gtt OU HS Metformin ER 500mg PO QAM Multivitamin 1 capsule daily Nitroglycerin 0.2 mg/hr Patch QPM; APPLY AT 1900, OFF AT 7 AM Potassium Chloride 20 mEq PO BID Spironolactone 50 mg PO daily Terazosin 10mg PO HS Torsemide 40mg PO QAM Torsemide 40mg PO NOON Insulin Glargine (Lantus) 12 units SUBQ QAM PRN blood sugar >150 Levalbuterol 1.25 mg/0.5 mL nebulizer - inhale BID PRN PMH Cataracts/glaucoma Type 2 diabetes mellitus CHF Chronic atrial fibrillation History of subdural hematoma - divya holes by [facility], now off anticoagulation (2014) COPD BPH CKD stage III History of skin cancer Abdominal aneurysm s/p endograft Pulmonary hypertension Hyperlipidemia Hypertension Hepatic cirrhosis with anasarca Coronary artery disease s/p 5 vessel CABG 1982 with redo bypass 1992 Ischemic Cardiomyopathy [id number] MR . Surgical History Cholecystectomy CABG with redo Cataracts Family History Father had CO at age 54 Mother had stroke Social History Occupation: Retired Hx Alcohol Use: No Hx Substance Use: No Hx Tobacco Use: Yes Smoking Status: Former Smoker Exam Vital Signs Vital Sign - Last Date Time Temp Pulse Resp B/P Pulse Ox O2 Delivery O2 Flow Rate FiO2 06/02/16 16:45 36.7 73 16 102/56 98 Room Air Exam General: Patient sitting on edge of bed in no acute distress, well-developed, well-nourished, appropriately interactive HEENT: Normocephalic, atraumatic. PERRL. Moist conjunctivae, and no lid lag. Mucous membranes moist. Upper dentures Neck: Supple Cardiovascular: Irregularly irregular. II/ systolic murmur and apex and axilla Pulmonary: Clear to auscultation bilaterally with no crackles, wheezes, or rhonchi. Normal respiratory effort with no use of accessory muscles. Abdomen: Bowel tones present. Moderate distension with fluid wave. Extremities: Bilateral lower extremity pitting edema to abdomen Skin: Normal temperature, turgor, and texture; no rashes appreciated. Ecchymosis on upper extremities bilaterally. Left thigh with ecchymosis and bandage Neurological: Cranial nerves grossly intact. Psychiatric: Normal mood and affect. Alert and oriented to person, place, and time Assessment & Plan Patient is an 86-year-old gentleman with chronic systolic congestive heart failure, chronic atrial fibrillation, pulmonary hypertension and coronary artery disease admitted for anasarca. Hospital day #1. Acute on chronic anasarca. Present on admission. Active - Etiology unknown, most likely secondary to hepatorenal syndrome with underlying cirrhosis - Paracentesis ordered - Lasix 80mg IV x 1. Will reassess fluid status in the morning - Will consult nephrology in the morning Portal hypertension. Present on admission. Active - Secondary to cirrhosis - Management as above Chronic kidney disease, stage III. Present on admission - Most likely secondary to hepatorenal syndrome - Bladder scan pending to assess for urinary retention - Monitor urine output - CMP pending Acute on chronic systolic heart failure. Present on admission - Echocardiogram 04/27/2016 showed normal LV, estimated EF 45-50%. RV mildly dilated with moderate reduction in function. Pulmonary hypertension - Telemetry - Diuresis as above - Daily weights. Monitor I/Os Chronic anemia. Present on admission. Ongoing - Most likely secondary to CKD and iron deficiency - CBC pending Cirrhosis with thrombocytopenia, chronic. Present on admission - History of CT and ultrasound suggestive of diagnosis - Paracentesis - Continue to monitor Chronic atrial fibrillation. Present on admission. Ongoing - Currently rate controlled. Med rec does not show rate controlling home medication - Not on anticoagulation due to history of subdural hematoma - Telemetry COPD. Present admission - Continue home Brovana - DuoNeb PRN Hyperlipidemia, chronic. Present on admission - Continued home atorvastatin 20 mg daily Benign prostatic hyperplasia, chronic. Present on admission - Continue home Terazosin - Bladder scan - Monitor output Diabetes mellitus Type 2, chronic. Present admission - HbA1c 7.4% (05/04/2016) - Hold home metformin - Low-dose correctional scale insulin - Lantus 10u HS Right upper lobe mass on chest x-ray. Present on admission - Persistent mass-like opacity in right upper lobe seen on prior imaging studies - Follow-up with doctor podiatric medicine as outpatient - Acetaminophen as needed for mild pain/fever/headache - Bowel regimen as needed - Antiemetic as needed Patient Status: Patient is admitted under inpatient status with expected length of stay greater than 2 midnights due to severity of presenting symptoms, risk of adverse event, and complexity of treatment plan. VTE Prophylaxis: Sub-Q Heparin (Unfractionated) Resuscitation Status: DNR/DNI:Do Not Resuscitate/Intubate Attending Statement The patient was seen and examined together with Dr. Wells on 06/02/16 and I agree with the history, exam and plan as outlined in the note above. Nick Wells DO Jun 02, 2016 17:28 Tamy Gonzalez DO Jun 07, 2016 18:44
[2016-06-02] MEDS ORDERED: Furosemide 10 mg/mL 10 mL Inj IVPUSH ONE (18:15)
[2016-06-02] MEDS ORDERED: Glucose 40% Oral Gel 15 Gm Tube PO PRN (18:20)
[2016-06-02] MEDS ORDERED: Albuterol-Ipratropium 3 mL Inhalation Solution NEB PRN (18:25)
[2016-06-02 18:26] LABS: INR 1.13 ratio
[2016-06-02 18:33] LABS: Magnesium 2.5 mg/dL (1.6-2.6)
--- NOTE | 2016-06-02 18:42 | NUR ---
BUN/Creatinine Critical value of BUN 111, Creat 4.3. Notified Dr Wells. I was in the middle of giving 80mg IV lasix (given 40mg so far) so MD had me stop and not give the second half of the 80mg. Report passed onto oncoming RN.
[2016-06-02 20:00] VITALS: BP 108/67; PULSE 76; PULSE 77; RESP 30; O2SAT 95
[2016-06-02] MEDS ORDERED: Furosemide 10 mg/mL 4 mL Inj IVPUSH ONE (20:05)
[2016-06-02] MEDS ORDERED: Albuterol 2.5 mg/3 mL Inhalation Solution NEB PRN (20:30)
[2016-06-02 20:44] VITALS: PULSE 76; RESP 20; O2SAT 98
[2016-06-02] MEDS: Dorzolamide 2% 10 mL Ophthalmic Solution BOTH_EYES SCH (20:52)
[2016-06-02] MEDS: Insulin LISPRO 300 Unit/3 mL Inj SUBQ SCH (21:17)
[2016-06-02 23:12] VITALS: BP 112/60; PULSE 76; RESP 12; O2SAT 97
[2016-06-03] VITALS (13 sets, daily range): BP systolic 101–113; BP diastolic 54–92; PULSE 72–79; RESP 18–21; O2SAT 94–99
[2016-06-03] MEDS ORDERED: Heparin 5,000 Unit/mL Inj SUBQ SCH (00:30)
[2016-06-03 03:34] LABS: BASOPHILS % (AUTO) 0.4 % (0-3); EOSINOPHILS % (AUTO) 2.1 % (0-5); MONOCYTES % (AUTO) 10.5 % (4-12); Mean Corpuscular Hemoglobin 26.3 pg (27.0-35.0); Mean Corpuscular Volume 91.3 fL (81-100); NEUTROPHILS % (AUTO) 70.4 % (40-74); Platelet Count 57 bil/L (150-400)
[2016-06-03 03:54] LABS: INR 1.09 ratio
[2016-06-03 04:18] LABS: Magnesium 2.4 mg/dL (1.6-2.6)
--- NOTE | 2016-06-03 05:19 | NUR ---
P) Respiratory/Cardiac Pt. alert and oriented x3, pleasant affect, lungs with coarse breath sounds and rales in bases. Whole body pitting edema, abdomen firm and tender. Large, dark bruises all over with several dressings taped down on arms and legs. Able to stand with assist at bedside and use urinal but SPO2 drops into the low to mid 80's with activity, O2 2L N/C applied, pt. states he also uses O2 at home PRN. Cardiac rhythm afib with lots of multifocal PVC's and runs of bigeminy. Received a total of 80mg of lasix IV, voiding frequently, approximately 200ml q hour. Pt. states he feels scrotum and penis are less edematous but still extremely painful to touch and compression with unguarded movements. I) Meds per 's orders, cont. to monitor and assist with voiding and ADL's. E) dozing between getting up to void.
[2016-06-03] MEDS: Dorzolamide 2% 10 mL Ophthalmic Solution BOTH_EYES SCH ×2 (09:45→20:27)
[2016-06-03] MEDS: Insulin LISPRO 300 Unit/3 mL Inj SUBQ SCH ×4 (09:50→22:00)
--- NOTE | 2016-06-03 10:17 | DRSVH ---
PROCEDURE: US ABDOMEN, LIMITED ([id number]) INDICATIONS: ascites TECHNIQUE: Real-time focused scanning was performed of the abdomen, with image documentation. COMPARISON: [facility], , ABDOMEN LTD, 05/29/2016, 11:54. FINDINGS: There is a relatively mild degree of ascites intermixed with bowel loops, not sufficient fo r safe access for therapeutic paracentesis. IMPRESSION: The amount of ascites currently present is insufficient for safe therapeutic paracentesis . Further evaluation for therapeutic paracentesis next week is anticipated, If necessary. Dictated by: Yuri Harman M.D. on 06/03/2016 at 10:14 Approved by: Yuri Harman M.D. on 06/03/2016 at 10:15
--- NOTE | 2016-06-03 14:34 | PCM.PNMED ---
Subjective Date of Service Jun 03, 2016 Subjective Overnight: Her telemetry remained in atrial fibrillation with a rate in the 70s with frequent PVCs . Voided frequently after receiving 80 IV Lasix Today: Patient awake and alert laying in hospital but appropriately interactive. States he is not in any specific pain [place] will stay scrotal and penile pain on movement. He is able to void without too much difficulty though he does state he has a infrequent urinary stream. Does not state any chest pain or significant shortness of breath. Overall he states that he feels just about the same state of health this when he was discharged a few days prior, just has not gotten any better or felt any improvement in his health since discharge. Exam Vital Signs Vital Sign - Last Date Time Temp Pulse Resp B/P Pulse Ox O2 Delivery O2 Flow Rate FiO2 06/03/16 12:02 36.4 78 18 101/56 94 Room Air 06/02/16 20:44 2.00 Intake and Output 06/02/16 06/02/16 06/03/16 Cumulative From/Thru 15:00 23:00 07:00 06/02/16 16:45 - 06/03/16 06:14 Intake Total 0 ml 1250 ml 1250 ml Output Total 600 ml 1450 ml 2050 ml Balance -600 ml -200 ml -800 ml Intake Oral 0 ml 1250 ml 1250 ml Output Urine Total 600 ml 1450 ml 2050 ml Exam General: Patient awake and alert lying in hospital bed, in no acute distress and appropriately interactive HEENT: Normocephalic, atraumatic. PERRL. Moist conjunctivae, and no lid lag. Mucous membranes moist. Upper dentures Neck: Supple. Full range of motion. No JVD Cardiovascular: Irregularly irregular. II/ systolic murmur and apex and axilla. Regular rate. Pulmonary: Clear to auscultation bilaterally with no crackles, wheezes, or rhonchi. Normal respiratory effort with no use of accessory muscles. Abdomen: Bowel tones present. Moderate distension with fluid wave. Extremities: Bilateral lower extremity pitting edema to abdomen Skin: Normal temperature, turgor, and texture; no rashes appreciated. Ecchymosis on upper extremities bilaterally. Left thigh with ecchymosis and bandage Neurological: Cranial nerves grossly intact. Psychiatric: Normal mood and affect. Alert and oriented to person, place, and time IVs and Medications Medications Reviewed: Medications were reviewed in detail Lab and Diagnostics Result Diagram: 06/03/16 0323 06/03/16 032 Additional Diagnostics . US ABDOMEN, LIMITED IMPRESSION: The amount of ascites currently present is insufficient for safe therapeutic paracentesis. Further evaluation for therapeutic paracentesis next week is anticipated, If necessary. Dictated by: Yuri Harman M.D. on 06/03/2016 at 10:14 Assessment & Plan Patient is an 86-year-old gentleman with chronic systolic congestive heart failure, chronic atrial fibrillation, pulmonary hypertension and coronary artery disease admitted for anasarca. Hospital day 2. Acute on chronic anasarca. Present on admission. Active - Etiology unknown, most likely secondary to hepatorenal syndrome with underlying cirrhosis - Paracentesis ordered - Nephrology consult, we appreciate the recommendations - Per nephrology. Some mild 80 mg IV 3 times a day - Chlorthalidone 25 mg by mouth daily Portal hypertension. Present on admission. Active - Secondary to cirrhosis - Management as above Chronic kidney disease, stage III. Present on admission - Most likely secondary to hepatorenal syndrome - Bladder scan pending to assess for urinary retention - Monitor urine output -Creatinine 4.3, BUN 111 Acute on chronic systolic heart failure. Present on admission - Echocardiogram 04/27/2016 showed normal LV, estimated EF 45-50%. RV mildly dilated with moderate reduction in function. Pulmonary hypertension - Telemetry - Diuresis as above - Daily weights. Monitor I/Os Chronic anemia. Present on admission. Ongoing - Most likely secondary to CKD and iron deficiency - Iron/TIBC panel pending Cirrhosis with thrombocytopenia, chronic. Present on admission - History of CT and ultrasound suggestive of diagnosis - US guided paracentesis did not show fluid pocket that could be drained - Consider Pleurx - Continue to monitor Chronic atrial fibrillation. Present on admission. Ongoing - Currently rate controlled. Med rec does not show rate controlling home medication - Not on anticoagulation due to history of subdural hematoma - Telemetry COPD. Present admission - Continue home Brovana - DuoNeb PRN Hyperlipidemia, chronic. Present on admission - Continued home atorvastatin 20 mg daily Benign prostatic hyperplasia, chronic. Present on admission - Continue home Terazosin - Bladder scan pending - Monitor output Diabetes mellitus Type 2, chronic. Present admission - HbA1c 7.4% (05/04/2016) - Hold home metformin - Low-dose correctional scale insulin - Lantus 10u HS Right upper lobe mass on chest x-ray. Present on admission - Persistent mass-like opacity in right upper lobe seen on prior imaging studies - Follow-up with box turner as outpatient - Acetaminophen as needed for mild pain/fever/headache - Bowel regimen as needed - Antiemetic as needed Disposition: Nephrology following patient, awaiting recommendations. Pain Evaluation: Adequate Pain Control VTE Prophylaxis: Sub-Q Heparin (Unfractionated) VTE Mechanical Devices: Intermittant Pneumatic CD Resuscitation Status: DNR/DNI:Do Not Resuscitate/Intubate Attending Statement The patient was seen and examined together with Dr. Davis on 06/03/2016 and I agree with the history, exam and plan as outlined in the note above. . BLAKE DAVIS DO Jun 03, 2016 14:34 Leland Noel MD Jun 06, 2016 08:28
--- NOTE | 2016-06-03 15:32 | CONS ---
[address] [address] CONSULTATION REPORT PATIENT: XIOMARA CONNORS : 1930 MR#: [id number] ADMIT: 06/02/2016 JOB ID: [id number] CORRECTED REPORT: DATE OF SERVICE: 06/03/2016 RENAL CONSULTATION: HISTORY: The patient is an 86-year-old, white male who is well known to me from previous evaluations and hospitalizations. He has a history of recurrent acute on chronic kidney injury secondary to acute decompensated right-sided congestive heart failure. He was recently readmitted for exacerbation of his congestive heart failure and acute kidney injury. Renal consultation is being sought for further evaluation of his acute kidney injury. The patient has a history of multiple medical problems including severe almost end-stage COPD, biventricular congestive heart failure with chronic right-sided heart failure, cardiorenal syndrome, diabetes with diabetic nephropathy, hypertension with hypertensive heart disease and hypertensive nephrosclerosis. He was hospitalized about a week and half ago for a similar exacerbation of his biventricular failure. At that time, he had had a significant increase in his edema and increasing in abdominal fluid. He had significant ascites and pitting edema up to his thorax. He underwent a 5 L paracentesis and aggressive diuresis and had a marked improvement in his renal function. He had adjustment in his diuretics and subsequently was sent home. He states that yesterday he saw his new primary care physician who was quite concerned about reaccumulation of his edema. He contacted my partner, Dr. Hammond ([facility]), who saw him and recommended admission. Dr. Hammond also contacted me to let me know that he was coming in. Upon admission his BUN and creatinine were elevated at 111 and 4.31. He has been aggressively diuresed and has had a slight improvement in his creatinine down to 4.11. He states that his breathing is considerably better this morning. He has been compliant with his medications and his salt restriction. PAST MEDICAL HISTORY: Significant for diabetes with diabetic nephropathy, biventricular congestive heart failure, atrial fibrillation, COPD, CKD stage 3/4, peripheral vascular disease, hypertension with hypertensive heart disease and hypertensive nephrosclerosis, mitral regurgitation, ischemic cardiomyopathy, hepatic cirrhosis, coronary artery disease. PAST SURGICAL HISTORY: Significant with coronary artery bypass graft x2 with one in 1982, and one in 1992, cataract excision and cholecystectomy. ALLERGIES: He is allergic to: 1. HEPARIN ANALOGS. 2. . 3. WARFARIN. SOCIAL HISTORY: He is retired and has a history of tobacco use but has not smoked or had alcohol in a number of years. FAMILY HISTORY: Unremarkable. REVIEW OF SYSTEMS: As detailed above. Otherwise is unremarkable. PHYSICAL EXAMINATION: Revealed a well-developed, mildly obese 86-year-old, white male who was alert and oriented x3, in no distress at time of my evaluation. His blood pressure was 109/54 with a pulse rate of 72. HEENT examination is remarkable for pale sclerae. Cornea and conjunctivae were within normal limits. Mucous membranes were moist. Neck is supple without adenopathy, or thyromegaly. He does have jugular venous distention at 60 degrees elevation. Lungs showed scattered rhonchi and bibasilar rales. Heart was irregularly irregular. Abdomen is distended with some free fluid wave noted. He has evidence of hepatomegaly, and hepatojugular reflux is noted. Extremities showed moderate pitting edema up to the patient's hips. There is also evidence of pmuu-frh-cili nails. LABORATORY EXAMINATION: This morning his sodium is 137, potassium 5.1, chloride 98, bicarbonate 20, BUN and creatinine are 111 and 4.11. Urinalysis was within normal limits. His hemoglobin was 8.4 with hematocrit 29.5, red cell indices are mildly hypochromic and he is significantly thrombocytopenic with a platelet count of 57,000. IMPRESSION: 1. Acute on chronic kidney injury secondary to acute decompensated congestive heart failure with cardiorenal syndrome. 2. Baseline chronic kidney disease, stage 4, secondary to cardiorenal syndrome and hypertensive kidney disease. 3. Anemia secondary to chronic kidney disease. 4. Type 4 renal tubular acidosis. RECOMMENDATION: 1. I would like to hold his metformin, and we probably need to discontinue this altogether in light of his chronically worsened renal function. 2. I will go ahead and give him another dose of Aranesp and recheck his iron studies. 3. I would like to augment his diuresis in an attempt to promote better fluid loss. I have reviewed his ultrasound, and there is some fluid in there but not enough for a paracentesis. Once again, I would like to thank you for allowing me to participate in the care of this most pleasant but unfortunate patient. I will continue to follow him with you. Corrected by NENA 07/02/16 at 1:59pm DOS
[2016-06-03] MEDS: Furosemide 10 mg/mL 10 mL Inj IVPUSH SCH (16:51)
--- NOTE | 2016-06-03 18:36 | NUR ---
Respiratory/Edema/Bladder Scan Pt. is on RA and states having mild SOB when Pt. exerts himself and SpO2 a low as 88%. Pt. has general edema that is significantly pitting in his slower extremity as well as his scrotum. Pt. states scrotum does not hurt when he is laying or sitting but when he moves or ambulates his scrotum begins to hurt. When we bladder scanned Pt. it is difficult do to his large abdomen but pre void measurement was 341mL and Post void was 186mL with a measurement of 190mL output with urinal.
[2016-06-04] VITALS (8 sets, daily range): BP systolic 105–116; BP diastolic 51–65; PULSE 67–82; RESP 16–21; O2SAT 93–97
[2016-06-04] MEDS: Furosemide 10 mg/mL 10 mL Inj IVPUSH SCH ×3 (01:40→16:52)
[2016-06-04 02:08] LABS: BASOPHILS % (AUTO) 0.4 % (0-3); EOSINOPHILS % (AUTO) 1.7 % (0-5); MONOCYTES % (AUTO) 8.7 % (4-12); Mean Corpuscular Hemoglobin 26.9 pg (27.0-35.0); Mean Corpuscular Volume 91.3 fL (81-100); NEUTROPHILS % (AUTO) 68.9 % (40-74); Platelet Count 52 bil/L (150-400)
[2016-06-04 02:29] LABS: Magnesium 2.5 mg/dL (1.6-2.6); Unsaturated Iron Binding 288.6 ug/dL
--- NOTE | 2016-06-04 05:19 | NUR ---
Cardiac/Respiratory P: Pt has generalized pitting edema, including scrotal and penis, sob on exertion, sp02 >92% on RA, tele: afib with frequent multifocal pvc's. I: continue diuresing with lasix slow IVP, E: pt has frequency and urgency in voiding, voided 2200cc uo, AM BUN and CR improved to 106 and 3.55, AM K 4.7 with Mag level 2.5. S: Pt has steady gait and SBA when oob, stands when voiding. call light in reach, frequent rounding done.
[2016-06-04] MEDS: Insulin LISPRO 300 Unit/3 mL Inj SUBQ SCH ×4 (08:00→21:55)
[2016-06-04] MEDS: Dorzolamide 2% 10 mL Ophthalmic Solution BOTH_EYES SCH ×2 (08:20→20:45)
--- NOTE | 2016-06-04 09:01 | PCM.PNNEPH ---
Subjective Date of Service Jun 04, 2016 Subjective The patient states that he has been urinating regularly every few hours but only minimal. The patient denies any blood in his urine however he states that his groin and testicles continue to be swollen. The patient denies abdominal plain nausea, diarrhea or constipation at this time. Exam Vital Signs Vital Sign - Last Date Time Temp Pulse Resp B/P Pulse Ox O2 Delivery O2 Flow Rate FiO2 06/04/16 08:07 36.4 68 20 105/51 95 Room Air 06/03/16 20:16 2.00 Intake and Output 06/03/16 06/03/16 06/04/16 Cumulative From/Thru 15:00 23:00 07:00 06/02/16 16:45 - 06/04/16 05:28 Intake Total 1455 ml 598 ml 3303 ml Output Total 1100 ml 2200 ml 5350 ml Balance 355 ml -1602 ml -2047 ml Intake Oral 1455 ml 568 ml 3273 ml IV Total 30 ml 30 ml Output Urine Total 1100 ml 2200 ml 5350 ml Estimated Blood Loss 0 ml 0 ml # Voids 9 9 # Bowel Movements 1 1 Exam General: Patient awake and alert lying in hospital bed, in no acute distress and appropriately interactive HEENT: Normocephalic, atraumatic. PERRL. Moist conjunctivae, and no lid lag. Mucous membranes moist. Upper dentures Neck: Supple. Full range of motion. No JVD Cardiovascular: Irregularly irregular. II/ systolic murmur and apex and axilla. Regular rate. Pulmonary: Clear to auscultation bilaterally with no crackles, wheezes, or rhonchi. Normal respiratory effort with no use of accessory muscles. Abdomen: Bowel tones present. Moderate distension with fluid wave. Extremities: Bilateral lower extremity pitting edema to abdomen Skin: Normal temperature, turgor, and texture; no rashes appreciated. Ecchymosis on upper extremities bilaterally. Left thigh with ecchymosis and bandage Neurological: Cranial nerves grossly intact. Psychiatric: Normal mood and affect. Alert and oriented to person, place, and time Lab and Diagnostics Result Diagram: 06/04/16 0200 06/04/16 020 Additional Diagnostics . US ABDOMEN, LIMITED IMPRESSION: The amount of ascites currently present is insufficient for safe therapeutic paracentesis. Further evaluation for therapeutic paracentesis next week is anticipated, If necessary. Dictated by: Yuri Harman M.D. on 06/03/2016 at 10:14 Plan Impression 86yo male with multiple comorbidities including systolic congestive heart failure, chronic kidney disease, cirrhosis, diabetes present with intra- abdominal hypertension and anasarca. 1. Acute kidney injury secondary to acute decompensated congestive heart failure with cardiorenal syndrome. 2. Baseline chronic kidney disease, stage 4, secondary to cardiorenal syndrome and hypertensive kidney disease. 3. Anemia secondary to chronic kidney disease. 4. Type 4 renal tubular acidosis. 5. Ascites 6. Benign prostatic hypertrophy Plan: 1. Acute kidney injury and chronic kidney disease stage IV, secondary to acute decompensated congestive heart failure with cardiorenal syndrome - treat underlying cause including repeat paracentesis to be performed by IR as well as diuretic therapy described below - Discontinue metformin given chronic kidney disease - Creatinine is improving with liberal diuretic use below - lasix 80mg 3 times a day - Chlorthalidone 25 mg daily - continue to monitor fluid status - Today the nephrology service discussed with the patient the possibility of dialysis in the future to treat his comorbidities including hypervolemia due to cirrhosis, CHF, CKD 2. normocytic anemia - Iron sucrose 200mg every other day as needed - Erythropoietin 60mcg once - monitor 3. Type IV renal tubular acidosis - Chlorthalidone 25 mg daily which we will treat secondary hyperkalemia 4. Ascites secondary to cirrhosis and CHF - Patient had a paracentesis at admission 05/22 with 5.4L removed, the fluid has been sent for analysis including culture and gram stain as well as cell count. It appears to be transudative bordering on exudative with significant RBC. - SAAG > 1.1 consistent with portal hypertension of known cirrhosis - patient is at risk for hepatocellular carcinoma, however AFB was negative in April - Repeat paracentesis will likely be necessary by IR and fluid should be sent for cytology as the first tap is often falsely negative for malignancy 5. BPH -Patient continues to be able to urinate with postvoid residuals less than 200 mL's -Urologist Dr. Patel has placed patient on doxazosin, and has discussed the possibility of a TURP procedure -Consideration for beginning finasteride -No signs of other obstructive etiology on renal ultrasound Virgil Jason DO Jun 04, 2016 09:01 - Spironolactone 50 mg daily - attempted to obtain Vascular surgeon records from [place] about AAA endoleak including MRI, noted on CT in April, surgeon reportedly did not feel this needed further intervention - Patient checked repeatedly with ultrasounds to evaluate for possible paracentesis while in hospital however always negative for large enough fluid pockets to safely perform paracentesis - Patient will likely need close follow-up and may require another paracentesis given increased distention since initial paracentesis 3. Systolic Heart Failure - discontinue diuretic therapy with Lasix 80mg BID - begin Torsamide 40mg BID morning and afternoon and Spironolactone 50mg daily 4. cirrhosis - SAAG > 1.1 consistent with portal hypertension of known cirrhosis - patient is at risk for hepatocellular carcinoma, however AFB was negative in April - intra-abdominal fluid sent for analysis ulnar negative today - Repeat paracentesis will likely be necessary as an outpatient and fluid should be sent for cytology as the first tap is often falsely negative for malignancy 5. BPH - pull santana 05/27 with patient able to urinate - patient had some bleeding from his penis after the santana was removed and this has cleared 6. normocytic anemia - Iron sucrose 200mg twice - Erythropoietin 60mcg once - monitor 7. hyponatremia - secondary to lasix therapy - add Spironolactone 50mg daily Virgil Jason DO Jun 04, 2016 09:01
--- NOTE | 2016-06-04 10:24 | PCM.PNMED ---
Subjective Date of Service Jun 04, 2016 Subjective Overnight: Remains in A. fib and the rate of 70s with some PVCs. O2 saturations dropped to approximately 88% on exertion. He still had scrotal pain throughout the evening. Urinary output approximately 2.5 L. Today: Patient awake and alert lying in hospital bed. States only pain is in his scrotum and penis especially when moving or repositioning body. Denies chest pain shortness of breath abdominal pain. States that he is peeing quite a large amount and is feeling better with each void. Exam Vital Signs Vital Sign - Last Date Time Temp Pulse Resp B/P Pulse Ox O2 Delivery O2 Flow Rate FiO2 06/04/16 08:07 36.4 68 20 105/51 95 Room Air 06/03/16 20:16 2.00 Intake and Output 06/03/16 06/03/16 06/04/16 Cumulative From/Thru 15:00 23:00 07:00 06/02/16 16:45 - 06/04/16 05:28 Intake Total 1455 ml 598 ml 3303 ml Output Total 1100 ml 2200 ml 5350 ml Balance 355 ml -1602 ml -2047 ml Intake Oral 1455 ml 568 ml 3273 ml IV Total 30 ml 30 ml Output Urine Total 1100 ml 2200 ml 5350 ml Estimated Blood Loss 0 ml 0 ml # Voids 9 9 # Bowel Movements 1 1 Exam General: Patient awake and alert lying in hospital bed, in no acute distress and appropriately interactive HEENT: Normocephalic, atraumatic. PERRL. Moist conjunctivae, and no lid lag. Mucous membranes moist. Neck: Supple. Full range of motion. No JVD Cardiovascular: Irregularly irregular. II/ systolic murmur and apex and axilla. Regular rate. Pulmonary: Clear to auscultation bilaterally with no crackles, wheezes, or rhonchi. Normal respiratory effort with no use of accessory muscles. Abdomen: Bowel tones present. Moderate distension with fluid wave. Laying on left side. No pain to palpation Extremities: Bilateral lower extremity pitting edema to abdomen, improved from yesterday Skin: Normal temperature, turgor, and texture; no rashes appreciated. Ecchymosis on upper extremities bilaterally. Neurological: Cranial nerves grossly intact. Psychiatric: Normal mood and affect. Alert and oriented to person, place, and time IVs and Medications Medications Reviewed: Medications were reviewed in detail Lab and Diagnostics Result Diagram: 06/04/1619906/04/16199 Additional Diagnostics . US ABDOMEN, LIMITED IMPRESSION: The amount of ascites currently present is insufficient for safe therapeutic paracentesis. Further evaluation for therapeutic paracentesis next week is anticipated, If necessary. Dictated by: Yuri Harman M.D. on 06/03/2016 at 10:14 Assessment & Plan Patient is an 86-year-old gentleman with chronic systolic congestive heart failure, chronic atrial fibrillation, pulmonary hypertension and coronary artery disease admitted for anasarca. Hospital day 3. Acute on chronic anasarca. Present on admission. Active - Etiology unknown, most likely secondary to hepatorenal syndrome with underlying cirrhosis - Paracentesis showed fluid pocket right upper quadrant, unsure if this is able to be safely drained - Nephrology consult, we appreciate the recommendations - Per nephrology. Lasix 80 mg IV 3 times a day - Chlorthalidone 25 mg by mouth daily Portal hypertension. Present on admission. Active - Secondary to cirrhosis - Management as above Chronic kidney disease, stage 4. Present on admission. Improving - Most likely secondary to hepatorenal syndrome - Bladder scan pending to assess for urinary retention - Monitor urine output -Creatinine 4.3, BUN 111 on admission, trending down Acute on chronic systolic heart failure. Present on admission - Echocardiogram 04/27/2016 showed normal LV, estimated EF 45-50%. RV mildly dilated with moderate reduction in function. Pulmonary hypertension - Telemetry - Diuresis as above - Daily weights. Monitor I/Os Chronic anemia. Present on admission. Ongoing - Most likely secondary to CKD and iron deficiency - Aranesp - Continue to monitor Cirrhosis with thrombocytopenia, chronic. Present on admission - History of CT and ultrasound suggestive of diagnosis - US guided paracentesis did show fluid pocket right upper quadrant - Awaiting further recommendations about viability of paracentesis to this area - Consider Pleurx - Continue to monitor Chronic atrial fibrillation. Present on admission. Ongoing - Currently rate controlled. Med rec does not show rate controlling home medication - Not on anticoagulation due to history of subdural hematoma - Telemetry COPD. Present admission - Continue home Brovana - DuoNeb PRN Hyperlipidemia, chronic. Present on admission - Continued home atorvastatin 20 mg daily Benign prostatic hyperplasia, chronic. Present on admission - Continue home Terazosin - Bladder showed post void residual approximately 190 mL - Total urine output 5.3 L Diabetes mellitus Type 2, chronic. Present admission - HbA1c 7.4% (05/04/2016) - Per nephrology Hold home metformin - Low-dose correctional scale insulin - Lantus 10u HS Right upper lobe mass on chest x-ray. Present on admission - Persistent mass-like opacity in right upper lobe seen on prior imaging studies - Follow-up with trimmer tailer as outpatient - Acetaminophen as needed for mild pain/fever/headache - Bowel regimen as needed - Antiemetic as needed Disposition: Possible paracentesis today. We will continue with aggressive diuresis Pain Evaluation: Adequate Pain Control VTE Prophylaxis: Sub-Q Heparin (Unfractionated) VTE Mechanical Devices: Intermittant Pneumatic CD Resuscitation Status: DNR/DNI:Do Not Resuscitate/Intubate Attending Statement The patient was seen and examined together with Dr. Castro on 06/04/2016 and I agree with the history, exam and plan as outlined in the note above. . BLAKE CASTRO DO Jun 04, 2016 10:24 Leland Noel MD Jun 06, 2016 08:29
--- NOTE | 2016-06-04 12:28 | NUR ---
Abdominal ultrasound Patient denied having pain or discomfort. Some shortness of breath was present with exertion. Lasix IV as scheduled- up to a standing position to urinate- patient required one persona assist with getting up due to lower extremity edema and abdominal ascetic persisting. MD scheduled an abdominal ultrasound for possible paracentesis procedure today - continue assessment, frequent rounds.
--- NOTE | 2016-06-04 14:32 | DRSVH ---
PROCEDURE: US ABDOMEN, LIMITED ([id number]) INDICATIONS: ABD Ascities TECHNIQUE: Real-time focused scanning was performed of the abdomen, with image documentation. COMPARISON: [facility], , [facility]BD[facility]EN LTD, 06/03/2016, 7:48. FINDINGS: Small amount of fluid present within all 4 quadrants of the abdomen. IMPRESSION: Small amount of ascites present with current volume not sufficient for therapeutic parace ntesis. Dictated by: Suhail Cavanaugh [facility] Interpreted: Jeanna Walters MD on 06/04/2016 at 14:31 Transcribed by: NATY on 06/04/2016 at 14:32 Approved by: Jeanna Walters MD, PhD on 06/04/2016 at 15:31
--- NOTE | 2016-06-04 15:58 | NUR ---
Social Work: Initial Assessment D: Per EMR review, pt is an 86 year old male admitted for CHF/Fluid Overload. Pt is Medicare with [employer] with no LTC insurance or VA benefits. PCP is GEN Mcclellan. NOK is Elijah Jones, . Advanced directives completed- DESKTOP ENGINEER requested from pt. Readmit score is high, 5/8. Pt is a readmission and was discharged on 05/29 with no sw needs. DESKTOP ENGINEER met with pt at bedside. Sw role explained and contact information provided. See initial assessment. Pt lives in [place], [facility]. Pt has had multiple admissions in the last several months all related to his CHF. Pt may require dialysis at discharge due to his clinical presentation. Pt is I with ADLs at baseline and uses no DME. Pt has never had HH but had a previous stay at [facility]. Pt is considering possible home health at discharge due to his recent admissions. HH CHOICE LIST PROVIDED. Pt states his brother will transport him home when ready. A: Pt who is I at baseline. P: Evolving; Anticipate pt to discharge home r/o possible HH. DESKTOP ENGINEER to continue to follow. Pt's brother to transport. JANICE Jackson Addendum: 06/04/16 at 1603 by MOLLY MARTÍNEZ SS Amended: Links added.
--- NOTE | 2016-06-04 17:19 | PCM.PNNEPH ---
Subjective Date of Service Jun 04, 2016 Subjective The patient his hand include urine output in the last 24 hours. He also has had some improvement in his renal function however I feel that were reaching a point of maximum medical therapy. His breathing is considerably better and is had really no change in his abdominal girth. Last 24 hours she had 2705 and 2250 out with 20/200 in the last 8 hours. This morning his sodium is 135, potassium 4.7, chloride 97, bicarbonate 21, BUN and creatinine were 106 and 3.55 his hemoglobin is 8.6. Titrate his hand he has not had any nausea or vomiting. Exam Vital Signs Vital Sign - Last Date Time Temp Pulse Resp B/P Pulse Ox O2 Delivery O2 Flow Rate FiO2 06/04/16 15:33 36.4 67 21 112/59 95 Room Air 06/03/16 20:16 2.00 Intake and Output 06/03/16 06/03/16 06/04/16 Cumulative From/Thru 15:00 23:00 07:00 06/02/16 16:45 - 06/04/16 05:28 Intake Total 1455 ml 598 ml 3303 ml Output Total 1100 ml 2200 ml 5350 ml Balance 355 ml -1602 ml -2047 ml Intake Oral 1455 ml 568 ml 3273 ml IV Total 30 ml 30 ml Output Urine Total 1100 ml 2200 ml 5350 ml Estimated Blood Loss 0 ml 0 ml # Voids 9 9 # Bowel Movements 1 1 Exam Sclera. Neck supple without adenopathy, thyromegaly, or he does have some jugular venous distention at 60. Lungs showed diminished breath sounds with a few bibasilar rales. Regular and rhythmical with a soft systolic murmur. Abdomen remains distended with free fluid wave. However this is non-tense. There is evidence of hepatomegaly with a pulsatile liver. Extremities continue to show some pitting edema but this appears to be a bit less than before. Lab and Diagnostics Result Diagram: 06/04/16 0200 06/04/16 020 Additional Diagnostics . US ABDOMEN, LIMITED IMPRESSION: The amount of ascites currently present is insufficient for safe therapeutic paracentesis. Further evaluation for therapeutic paracentesis next week is anticipated, If necessary. Dictated by: Yuri Harman M.D. on 06/03/2016 at 10:14 Plan Impression Impression #1 cardiac renal syndrome #2 acute kidney injury secondary to acute decompensated congestive heart failure #3 anemia secondary to chronic kidney disease number for type IV renal tubular acidosis Recommendations #1 and it is clear that the patient is failing conservative medical therapy. I have had a long and tung discussion with the patient today about the possibility of long-term dialysis as a modality to keep him in the hospital but also to improve his quality of life. I therefore did not ask for any decision today to explore this suggestion several days. Total time spent was 30 minutes. Refugio Sprague DO Jun 04, 2016 17:18
[2016-06-04] MEDS ORDERED: 0.9% Sodium Chloride 100 ML ONE (23:44)
[2016-06-05] VITALS (7 sets, daily range): BP systolic 88–127; BP diastolic 55–66; PULSE 71–82; RESP 16–20; O2SAT 92–96
[2016-06-05] MEDS: Furosemide 10 mg/mL 10 mL Inj IVPUSH SCH ×3 (00:06→17:00)
[2016-06-05 03:46] LABS: BASOPHILS % (AUTO) 0.2 % (0-3); EOSINOPHILS % (AUTO) 1.9 % (0-5); MONOCYTES % (AUTO) 8.9 % (4-12); Mean Corpuscular Hemoglobin 27.3 pg (27.0-35.0); NEUTROPHILS % (AUTO) 71.2 % (40-74); Platelet Count 81 bil/L (150-400)
[2016-06-05 04:09] LABS: Magnesium 2.4 mg/dL (1.6-2.6)
--- NOTE | 2016-06-05 06:20 | NUR ---
Resp pt on RA all shift with sats in low to mid 90's, reports SOB with exertion, denies pain.
[2016-06-05] MEDS: Dorzolamide 2% 10 mL Ophthalmic Solution BOTH_EYES SCH ×2 (08:58→20:12)
[2016-06-05] MEDS: Insulin LISPRO 300 Unit/3 mL Inj SUBQ SCH ×4 (08:59→22:08)
--- NOTE | 2016-06-05 13:34 | PCM.PNNEPH ---
Virgil Jason DO 06/05/16 1334: Subjective Date of Service Jun 05, 2016 Subjective Patient states that his groin swelling is improving. He denies fever, shortness of breath, or nausea. HE states that he continues to wake up every hour or two to urinate overnight. He is still unsure if he should pursue dialysis. Exam Vital Signs Vital Sign - Last Date Time Temp Pulse Resp B/P Pulse Ox O2 Delivery O2 Flow Rate FiO2 06/05/16 12:22 75 20 95 Room Air 06/05/16 12:00 36.7 104/65 06/03/16 20:16 2.00 Intake and Output 06/04/16 06/04/16 06/05/16 Cumulative From/Thru 15:00 23:00 07:00 06/02/16 16:45 - 06/05/16 05:39 Intake Total 2100 ml 840 ml 6243 ml Output Total 1750 ml 1675 ml 8775 ml Balance 350 ml -835 ml -2532 ml Intake Oral 2100 ml 840 ml 6213 ml IV Total 30 ml Output Urine Total 1750 ml 1675 ml 8775 ml Estimated Blood Loss 0 ml 0 ml # Voids 8 17 # Bowel Movements 1 2 Exam General: Patient awake and alert lying in hospital bed, in no acute distress and appropriately interactive Eyes: PERRLA, anicteric sclera noninjected conjunctiva HENT: Normocephalic, atraumatic. Mucous membranes moist. Neck: Supple. Full range of motion. No JVD Cardiovascular: Irregularly irregular. II/ systolic murmur and apex and axilla. Regular rate. Pulmonary: Clear to auscultation bilaterally with no crackles, wheezes, or rhonchi. Normal respiratory effort with no use of accessory muscles. Abdomen: Bowel tones present. Moderate distension with fluid wave. Extremities: Bilateral lower extremity pitting edema to abdomen Skin: Normal temperature, turgor, and texture; no rashes appreciated. Ecchymosis on upper extremities bilaterally. Left thigh with ecchymosis and bandage Neurological: Cranial nerves grossly intact. Psychiatric: Normal mood and affect. Alert and oriented to person, place, and time : edematous but non-erythematous, no santana in place Lab and Diagnostics Result Diagram: 06/05/16 0325 06/05/16 0325 Additional Diagnostics . US ABDOMEN, LIMITED IMPRESSION: The amount of ascites currently present is insufficient for safe therapeutic paracentesis. Further evaluation for therapeutic paracentesis next week is anticipated, If necessary. Dictated by: Yuri Harman M.D. on 06/03/2016 at 10:14 Plan Impression 86yo male with multiple comorbidities including systolic congestive heart failure, chronic kidney disease, cirrhosis, diabetes present with intra- abdominal hypertension and anasarca. 1. Acute kidney injury secondary to acute decompensated congestive heart failure with cardiorenal syndrome. 2. Baseline chronic kidney disease, stage 4, secondary to cardiorenal syndrome and hypertensive kidney disease. 3. Anemia secondary to chronic kidney disease. 4. Type 4 renal tubular acidosis. 5. Ascites 6. Benign prostatic hypertrophy Plan: 1. Acute kidney injury and chronic kidney disease stage IV, secondary to acute decompensated congestive heart failure with cardiorenal syndrome - Discontinue metformin given chronic kidney disease - Creatinine is improving with liberal diuretic use below - lasix 80mg 3 times a day - Chlorthalidone 25 mg daily - continue to monitor fluid status - Today the nephrology service discussed with the patient the possibility of dialysis in the future to treat his comorbidities including hypervolemia due to cirrhosis, CHF, CKD 2. normocytic anemia - Iron sucrose 200mg every other day as needed - Erythropoietin 60mcg once - monitor 3. Type IV renal tubular acidosis - Chlorthalidone 25 mg daily which we will treat secondary hyperkalemia 4. Ascites secondary to cirrhosis and CHF - Patient had a paracentesis at admission 05/22 with 5.4L removed, the fluid has been sent for analysis including culture and gram stain as well as cell count. It appears to be transudative bordering on exudative with significant RBC. - SAAG > 1.1 consistent with portal hypertension of known cirrhosis - patient is at risk for hepatocellular carcinoma, however AFB was negative in April - Repeat paracentesis will likely be necessary by IR as an outpatient and fluid should be sent for cytology as the first tap is often falsely negative for malignancy 5. BPH -Patient continues to be able to urinate with postvoid residuals less than 200 mL's -Urologist Dr. Patel has placed patient on doxazosin, and has discussed the possibility of a TURP procedure -Consideration for beginning finasteride -No signs of other obstructive etiology on renal ultrasound Refugio Sprague DO 06/05/16 1356: Exam Lab and Diagnostics Result Diagram: 06/05/16 0325 06/05/16324 Plan Plan: Attending clinic nurse: Patient has had very good diuresis in the last 24 hours with 2698 and and 3956 and the last 24 hours. In the first 8 hours of today he has already had 1675 out. The abdomen is 8.5. Was 135, potassium 4.0, chloride 96, bicarbonate 22, BUN and creatinine were 106 and 3.2 respectively. He is breathing better and once again we had a long discussion about the need for dialysis. However following him over the weekend and most likely will be placing a dialysis catheter on Wednesday. Virgil Jason DO Jun 05, 2016 13:34 Refugio Sprague DO Jun 05, 2016 13:56
--- NOTE | 2016-06-05 14:14 | PCM.PNMED ---
Subjective Date of Service Jun 05, 2016 Subjective Overnight: Pt was SOB with exertion. No reports of pain overnight. No events reported, good urine output. Today: Pt reports no pain, states that his swelling is subsiding, especially in his groin. Does not endorse specific complaints of pain or discomfort. Exam Vital Signs Vital Sign - Last Date Time Temp Pulse Resp B/P Pulse Ox O2 Delivery O2 Flow Rate FiO2 06/05/16 12:22 75 20 95 Room Air 06/05/16 12:00 36.7 104/65 06/03/16 20:16 2.00 Intake and Output 06/04/16 06/04/16 06/05/16 Cumulative From/Thru 15:00 23:00 07:00 06/02/16 16:45 - 06/05/16 05:39 Intake Total 2100 ml 840 ml 6243 ml Output Total 1750 ml 1675 ml 8775 ml Balance 350 ml -835 ml -2532 ml Intake Oral 2100 ml 840 ml 6213 ml IV Total 30 ml Output Urine Total 1750 ml 1675 ml 8775 ml Estimated Blood Loss 0 ml 0 ml # Voids 8 17 # Bowel Movements 1 2 Exam General: Patient awake and alert lying in hospital bed, in no acute distress and appropriately interactive HEENT: Normocephalic, atraumatic. PERRL. Moist conjunctivae, and no lid lag. Mucous membranes moist. Neck: Supple. Full range of motion. No JVD Cardiovascular: Irregularly irregular. II/ systolic murmur and apex and axilla. Regular rate. Pulmonary: Clear to auscultation bilaterally with no crackles, wheezes, or rhonchi. Normal respiratory effort with no use of accessory muscles. Abdomen: Bowel tones present. Moderate distension with fluid wave. Laying on left side. No pain to palpation Extremities: Bilateral lower extremity pitting edema to mid thigh, continues to improve. Left elbow swollen. Skin: Normal temperature, turgor, and texture; no rashes appreciated. Ecchymosis on upper extremities bilaterally. Neurological: Cranial nerves grossly intact. Psychiatric: Normal mood and affect. Alert and oriented to person, place, and time IVs and Medications Medications Reviewed: Medications were reviewed in detail Lab and Diagnostics Result Diagram: 06/05/16 0325 06/05/16 0325 Additional Diagnostics . US ABDOMEN, LIMITED IMPRESSION: The amount of ascites currently present is insufficient for safe therapeutic paracentesis. Further evaluation for therapeutic paracentesis next week is anticipated, If necessary. Dictated by: Yuri Harman M.D. on 06/03/2016 at 10:14 US ABDOMEN, LIMITED IMPRESSION: Small amount of ascites present with current volume not sufficient for therapeutic paracentesis. Dictated by: Suhail CHAVARRIA Interpreted: Jeanna Walters MD on 06/04/2016 at 14:31 Assessment & Plan Patient is an 86-year-old gentleman with chronic systolic congestive heart failure, chronic atrial fibrillation, pulmonary hypertension and coronary artery disease admitted for anasarca. Hospital day 4 Acute on chronic anasarca. Present on admission. Active - Etiology unknown, most likely secondary to hepatorenal syndrome with underlying cirrhosis - Paracentesis showed fluid pocket right upper quadrant, cannot be safely drained at this time - Nephrology consult, we appreciate the recommendations - Per nephrology. Lasix 80 mg IV 3 times a day - Chlorthalidone 25 mg by mouth daily - Considering hemodialysis on Wednesday Portal hypertension. Present on admission. Active - Secondary to cirrhosis - Management as above Chronic kidney disease, stage 4. Present on admission. Improving - Most likely secondary to hepatorenal syndrome - Bladder scan pending to assess for urinary retention - Monitor urine output -Creatinine 4.3, BUN 111 on admission, trending down Acute on chronic systolic heart failure. Present on admission - Echocardiogram 04/27/2016 showed normal LV, estimated EF 45-50%. RV mildly dilated with moderate reduction in function. Pulmonary hypertension - Telemetry - Diuresis as above - Daily weights. Monitor I/Os Chronic anemia. Present on admission. Ongoing - Most likely secondary to CKD and iron deficiency - Aranesp - Continue to monitor Cirrhosis with thrombocytopenia, chronic. Present on admission - History of CT and ultrasound suggestive of diagnosis - US guided paracentesis did show fluid pocket right upper quadrant - Awaiting further recommendations about viability of paracentesis to this area - Consider Pleurx - Continue to monitor Chronic atrial fibrillation. Present on admission. Ongoing - Currently rate controlled. Med rec does not show rate controlling home medication - Not on anticoagulation due to history of subdural hematoma - Telemetry COPD. Present admission - Continue home Brovana - DuoNeb PRN Hyperlipidemia, chronic. Present on admission - Continued home atorvastatin 20 mg daily Benign prostatic hyperplasia, chronic. Present on admission - Continue home Terazosin - Bladder showed post void residual approximately 190 mL - Total urine output 5.3 L Diabetes mellitus Type 2, chronic. Present admission - HbA1c 7.4% (05/04/2016) - Per nephrology Hold home metformin - Low-dose correctional scale insulin - Lantus 10u HS Right upper lobe mass on chest x-ray. Present on admission - Persistent mass-like opacity in right upper lobe seen on prior imaging studies - Follow-up with bundle tier and labeler as outpatient - Acetaminophen as needed for mild pain/fever/headache - Bowel regimen as needed - Antiemetic as needed Disposition: Patient remained inpatient through the weekend with attenuation of aggressive diuresis. Evaluate necessity to initiate hemodialysis on Wednesday. Pain Evaluation: Adequate Pain Control VTE Prophylaxis: Sub-Q Heparin (Unfractionated) VTE Mechanical Devices: Intermittant Pneumatic CD Resuscitation Status: DNR/DNI:Do Not Resuscitate/Intubate Attending Statement The patient was seen and examined together with Dr. Davis on 06/05/2016 and I agree with the history, exam and plan as outlined in the note above. . BLAKE DAVIS DO Jun 05, 2016 14:14 Leland Noel MD Jun 06, 2016 08:30
--- NOTE | 2016-06-05 17:28 | NUR ---
Activity/Respiratory Pt walked with RN in hallway and only tolerated ~1/4 of a lap around unit r/t dyspnea with exertion, Pt able to recover at rest on RA. Pt reports breathing/edema to be improved since admit. PT order placed by this afternoon.
[2016-06-06] MEDS: Furosemide 10 mg/mL 4 mL Inj IVPUSH SCH ×3 (01:27→17:26)
[2016-06-06 03:21] LABS: BASOPHILS % (AUTO) 0.5 % (0-3); EOSINOPHILS % (AUTO) 1.5 % (0-5); MONOCYTES % (AUTO) 10.2 % (4-12); Mean Corpuscular Hemoglobin 26.9 pg (27.0-35.0); NEUTROPHILS % (AUTO) 68.3 % (40-74); Platelet Count 65 bil/L (150-400)
[2016-06-06 03:53] VITALS: BP 103/55; PULSE 79; RESP 20; O2SAT 96
[2016-06-06 03:58] LABS: Magnesium 2.4 mg/dL (1.6-2.6)
--- NOTE | 2016-06-06 05:34 | NUR ---
Activity/Lasix Patient up independently in room. Up multiple times to void after IV lasix given. Patient reports that his edema is improving and he is feeling much better. Continue to monitor.
[2016-06-06 07:30] VITALS: BP 107/60; PULSE 61; RESP 16; O2SAT 96
[2016-06-06] MEDS: Insulin LISPRO 300 Unit/3 mL Inj SUBQ SCH ×4 (07:37→21:39)
[2016-06-06] MEDS: Dorzolamide 2% 10 mL Ophthalmic Solution BOTH_EYES SCH ×2 (07:39→21:20)
--- NOTE | 2016-06-06 11:28 | NUR ---
Evaluation completed. Please go to "Notes" then click on "Assessments and Notes" (bottom left corner of screen). Then select appropriate discipline tab on top of screen.
--- NOTE | 2016-06-06 11:36 | PCM.PNNEPH ---
Subjective Date of Service Jun 06, 2016 Subjective Patient's fluid status continues to improve. His breathing is better and he has had no further chest pain. The last 24 hours he has had 1962 when and surgery to 75 out with 40-75 out already this morning. His blood pressure is good and his appetite is excellent. This morning his hemoglobin is 8.7, sodium 137, potassium 4.0, chloride 95, bicarbonate 25, BUN and creatinine of 103 and 2.98 respectively. Exam Vital Signs Vital Sign - Last Date Time Temp Pulse Resp B/P Pulse Ox O2 Delivery O2 Flow Rate FiO2 06/06/16 07:30 36.4 61 16 107/60 96 Room Air 06/03/16 20:16 2.00 Intake and Output 06/05/16 06/05/16 06/06/16 Cumulative From/Thru 15:00 23:00 07:00 06/02/16 16:45 - 06/06/16 06:04 Intake Total 1122 ml 909 ml 8274 ml Output Total 1600 ml 3275 ml 31050 ml Balance -478 ml -2366 ml -5376 ml Intake Oral 1122 ml 879 ml 8214 ml IV Total 30 ml 60 ml Output Urine Total 1600 ml 3275 ml 89193 ml Estimated Blood Loss 0 ml # Voids 11 28 # Bowel Movements 1 3 Exam HEENT examination is remarkable for pale sclera. Neck is supple without adenopathy or thyromegaly. No venous distention remains present but appears to be improved. Lungs show a few bibasilar rales but are also improving. Heart is irregularly irregular. Abdomen remains mildly distended and non-tense. He continues to have some pulsatile palpation to his liver. Extremities continued to demonstrate mild to moderate pitting edema THROUGH his proximal thighs bilaterally. However this appears to be improved. Lab and Diagnostics Result Diagram: 06/06/16 0310 06/06/16 0310 Additional Diagnostics . US ABDOMEN, LIMITED IMPRESSION: The amount of ascites currently present is insufficient for safe therapeutic paracentesis. Further evaluation for therapeutic paracentesis next week is anticipated, If necessary. Dictated by: Yuri Harman M.D. on 06/03/2016 at 10:14 US ABDOMEN, LIMITED IMPRESSION: Small amount of ascites present with current volume not sufficient for therapeutic paracentesis. 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
[2016-06-06 11:48] VITALS: BP 112/59; PULSE 73; RESP 18; O2SAT 97
--- NOTE | 2016-06-06 13:07 | PCM.PNMED ---
Subjective Date of Service Jun 06, 2016 Subjective Overnight: Patient able to walk in hallways to limited degree about one fourth of a lap, recovered quickly at rest on room air. Was able to get up independently in room voiding multiple times throughout the evening after IV Lasix given. Today: Patient continues to feel better. States he is urinating a considerable amount and overall is feeling less short of breath and less "bloated" states that groin pain has improved considerably. No other complaints of pain or discomfort at this time. Exam Vital Signs Vital Sign - Last Date Time Temp Pulse Resp B/P Pulse Ox O2 Delivery O2 Flow Rate FiO2 06/06/16 11:48 36.9 73 18 112/59 97 Room Air 06/03/16 20:16 2.00 Intake and Output 06/05/16 06/05/16 06/06/16 Cumulative From/Thru 15:00 23:00 07:00 06/02/16 16:45 - 06/06/16 06:04 Intake Total 1122 ml 909 ml 8274 ml Output Total 1600 ml 3275 ml 66163 ml Balance -478 ml -2366 ml -5376 ml Intake Oral 1122 ml 879 ml 8214 ml IV Total 30 ml 60 ml Output Urine Total 1600 ml 3275 ml 85218 ml Estimated Blood Loss 0 ml # Voids 11 28 # Bowel Movements 1 3 Exam General: Patient awake and alert standing in hospital room, in no acute distress and appropriately interactive HEENT: Normocephalic, atraumatic. PERRL. Neck: Supple. Full range of motion. No JVD Cardiovascular: Irregularly irregular. II/ systolic murmur and apex and axilla. Regular rate. Pulmonary: Clear to auscultation bilaterally with no crackles, wheezes, or rhonchi. Normal respiratory effort with no use of accessory muscles. Abdomen: Moderate distension with fluid wave. No pain to palpation Extremities: Bilateral lower extremity pitting edema to mid thigh, continues to improve. Left elbow swollen. Skin: Normal temperature, turgor, and texture; no rashes appreciated. Ecchymosis on upper extremities bilaterally. Neurological: Cranial nerves grossly intact. Psychiatric: Normal mood and affect. Alert and oriented to person, place, and time IVs and Medications Medications Reviewed: Medications were reviewed in detail Lab and Diagnostics Result Diagram: 06/06/1630906/06/16309 Additional Diagnostics . US ABDOMEN, LIMITED IMPRESSION: The amount of ascites currently present is insufficient for safe therapeutic paracentesis. Further evaluation for therapeutic paracentesis next week is anticipated, If necessary. Dictated by: Yuri Harman M.D. on 06/03/2016 at 10:14 US ABDOMEN, LIMITED IMPRESSION: Small amount of ascites present with current volume not sufficient for therapeutic paracentesis. Dictated by: Suhail Cavanaugh [facility] Interpreted: Jeanna Walters MD on 06/04/2016 at 14:31 Assessment & Plan Patient is an 86-year-old gentleman with chronic systolic congestive heart failure, chronic atrial fibrillation, pulmonary hypertension and coronary artery disease admitted for anasarca. Hospital day 5 1. Acute on chronic anasarca. Present on admission. Active - Etiology unknown, most likely secondary to hepatorenal syndrome with underlying cirrhosis - Paracentesis showed fluid pocket right upper quadrant, cannot be safely drained at this time - Nephrology consult, we appreciate the recommendations - Per nephrology. Lasix 80 mg IV 3 times a day - Chlorthalidone 25 mg by mouth daily - Considering hemodialysis on Wednesday 2. Portal hypertension. Present on admission. Active - Secondary to cirrhosis - Management as above 3. Chronic kidney disease, stage 4. Present on admission. Improving - Most likely secondary to hepatorenal syndrome - Bladder scan as a #10 - Monitor urine output -Creatinine 4.3, BUN 111 on admission, continues to trend down nicely 4. Acute on chronic systolic heart failure. Present on admission - Echocardiogram 04/27/2016 showed normal LV, estimated EF 45-50%. RV mildly dilated with moderate reduction in function. Pulmonary hypertension - Telemetry - Diuresis as above - Daily weights. Monitor I/Os 5. Chronic anemia. Present on admission. Ongoing - Most likely secondary to CKD and iron deficiency - Aranesp - Continue to monitor 6. Cirrhosis with thrombocytopenia, chronic. Present on admission - History of CT and ultrasound suggestive of diagnosis - US guided paracentesis did show fluid pocket right upper quadrant as in #1 - Consider Pleurx - Continue to monitor 7. Chronic atrial fibrillation. Present on admission. Ongoing - Currently rate controlled. Med rec does not show rate controlling home medication - Not on anticoagulation due to history of subdural hematoma, patient also reluctant to start anticoagulation medication - Telemetry - Continue to monitor 8. COPD. Present admission - Continue home Brovana - DuoNeb PRN 9. Hyperlipidemia, chronic. Present on admission - Continued home atorvastatin 20 mg daily 10. Benign prostatic hyperplasia, chronic. Present on admission - Continue home Terazosin - Bladder showed post void residual approximately 190 mL - Total urine output 5.3 L 11. Diabetes mellitus Type 2, chronic. Present admission - HbA1c 7.4% (05/04/2016) - Per nephrology Hold home metformin - Low-dose correctional scale insulin - Lantus 10u HS 12. Right upper lobe mass on chest x-ray. Present on admission - Persistent mass-like opacity in right upper lobe seen on prior imaging studies - Follow-up with transmitter operator as outpatient - Acetaminophen as needed for mild pain/fever/headache - Bowel regimen as needed - Antiemetic as needed Disposition: Patient remained inpatient through the weekend with attenuation of aggressive diuresis. Evaluate necessity to initiate hemodialysis on Wednesday. Pain Evaluation: Adequate Pain Control VTE Prophylaxis: Sub-Q Heparin (Unfractionated) VTE Mechanical Devices: Intermittant Pneumatic CD Resuscitation Status: DNR/DNI:Do Not Resuscitate/Intubate Attending Statement The patient was seen and examined together with Dr. Davis on 06/06/2016 and I agree with the history, exam and plan as outlined in the note above. . BLAKE DAVIS DO Jun 06, 2016 13:07 Leland Noel MD Jun 07, 2016 07:49
--- NOTE | 2016-06-06 15:54 | NUR ---
GENARO - Continued Discharge Planning SW met with pt at [facility] to discuss PT reccomending HH for PT/RN. Pt was agreeable to HH and has no preference for provider. GENARO sent referral to [facility] per rotating calendar, gave access, face to face in folder. JANICE Bruno
[2016-06-06 16:02] VITALS: BP 116/57; PULSE 80; RESP 16; O2SAT 95
--- NOTE | 2016-06-06 18:41 | NUR ---
Transfer/Activity/Edema Pt transferred from [facility] room 2011 to [facility] room 2006 without issue. Pt worked with PT today and also ambulated down to new room during transfer. Pt still dyspneic with ambulation, but appeared to be able to walk ~twice as far with PT today than with RN during yesterday's shift. Pt's LE edema appears unchanged, but Pt reports scrotal edema greatly improved, Pt states "It looks like a penis again!", scrotal edema appears to be trace to non-pitting today.
[2016-06-06 21:12] VITALS: BP 114/67; PULSE 75; RESP 16; O2SAT 97
[2016-06-06] MEDS: Brimonidine 0.2% 5 mL Ophthalmic Solution BOTH_EYES SCH (21:31)
[2016-06-07 00:58] VITALS: BP_SYST 106; BP_SYST 98; BP_DIAS 52; BP_DIAS 65; PULSE 74; RESP 20; O2SAT 95
[2016-06-07] MEDS: Furosemide 10 mg/mL 4 mL Inj IVPUSH SCH ×2 (01:17→09:21)
[2016-06-07 02:59] LABS: BASOPHILS % (AUTO) 0.5 % (0-3); EOSINOPHILS % (AUTO) 1.4 % (0-5); MONOCYTES % (AUTO) 10.6 % (4-12); Mean Corpuscular Hemoglobin 27.3 pg (27.0-35.0); Mean Corpuscular Volume 88.3 fL (81-100); NEUTROPHILS % (AUTO) 69.4 % (40-74); Platelet Count 74 bil/L (150-400)
[2016-06-07 03:34] LABS: Magnesium 2.5 mg/dL (1.6-2.6)
[2016-06-07 05:20] VITALS: BP 113/83; PULSE 72; RESP 18; O2SAT 93
--- NOTE | 2016-06-07 05:51 | NUR ---
Restful Night Pt appeared to sleep comfortably between care interventions w/ stable vitals and no c/o pain. Pt voiding multiple times per urinal, see I&Os for totals. Legs elevated d/t edema, pt reports improvement.
[2016-06-07] MEDS: Insulin LISPRO 300 Unit/3 mL Inj SUBQ SCH ×4 (08:00→21:25)
--- NOTE | 2016-06-07 08:56 | PCM.ADCARE ---
Advance Care Planning Note Purpose of Encounter: Goals of care Parties in Attendance: Patient and myself Decisional Capacity: Fully decisional Subjective: Patient was found lying in bed and comfortable, but upset about in earlier discussion regarding potential for dialysis. Otherwise, patient was feeling well physically and had no other particular complaints. Patient has been very happy with the care he has received at [facility] Objective: Mr. Jones is hemodynamically stable and improving since admission. He suffers from a number of chronic conditions including hepatic cirrhosis, anasarca, chronic kidney disease stage IV, chronic systolic congestive heart failure, coronary artery disease, chronic atrial fibrillation, and several others. Despite these serious chronic conditions, patient has been able to maintain a high functional status and continues to live independently. Goals of Care Determinations: Patient was very upset about the previous discussion regarding dialysis and felt that he was being pressured to make a decision about initiating same before being comfortable with the decision or other potential options. Given his choice, patient would prefer another attempt at ongoing medical therapy as an outpatient and seriously consider dialysis only if this were to fail again. Additionally, given his age and comorbidities, patient is not sure whether he would choose to undergo dialysis at all. Patient feels that he has had a long and exceptionally good life and may not wish to live a life that is seriously impaired or characterized by a marked decline in his functional status and ability to live independently. Plan: 1. Discuss aggressive medical management with Nephrology. 2. Plan on discharging patient with the next 48 hours on aggressive medical therapy. 3. Close follow-up in clinic next week for monitoring and, if patient shows signs of acute decompensation, discussion of potential dialysis. CODE STATUS: DO NOT RESUSCITATE, DO NOT INTUBATE Time Spent Adv.Care Planning: Greater than 15 minutes Adv. Care Plan Documenation: No changes in documentation at this time. Leland Noel MD Jun 07, 2016 08:56
[2016-06-07] MEDS: Brimonidine 0.2% 5 mL Ophthalmic Solution BOTH_EYES SCH ×3 (09:20→21:18)
[2016-06-07] MEDS: Dorzolamide 2% 10 mL Ophthalmic Solution BOTH_EYES SCH ×2 (09:20→21:18)
[2016-06-07 09:45] VITALS: BP 111/67; PULSE 77; RESP 20; O2SAT 95
--- NOTE | 2016-06-07 11:05 | PCM.PNNEPH ---
Subjective Date of Service Jun 07, 2016 Subjective The patient's urine output continues to do well and he is breathing better. His appetite is excellent. Last 24 hours she had 20-65 in and 6225 out with 2400 out this morning. His hemoglobin is 8.9, sodium 138, potassium 3.8, chloride 93, bicarbonate 27, BUN and creatinine were 103 and 2.86 respectively. Exam Vital Signs Vital Sign - Last Date Time Temp Pulse Resp B/P Pulse Ox O2 Delivery O2 Flow Rate FiO2 06/07/16 09:45 36.3 77 20 111/67 95 Room Air 06/03/16 20:16 2.00 Intake and Output 06/06/16 06/06/16 06/07/16 Cumulative From/Thru 15:00 23:00 07:00 06/02/16 16:45 - 06/07/16 05:20 Intake Total 1356 ml 9630 ml Output Total 2950 ml 70887 ml Balance -1594 ml -6970 ml Intake Oral 1356 ml 9570 ml IV Total 60 ml Output Urine Total 2950 ml 44389 ml Estimated Blood Loss 0 ml # Voids 2 30 # Bowel Movements 1 4 Exam Neck is supple without adenopathy or thyromegaly he does have some venous distention (again this is improved. Lungs are clear though somewhat diminished. Heart is regular and rhythmic. Abdomen is distended but non- tense. His lower extremity edema continues to improve. Lab and Diagnostics Result Diagram: 06/07/16 0240 06/07/16 0240 Additional Diagnostics . US ABDOMEN, LIMITED IMPRESSION: The amount of ascites currently present is insufficient for safe therapeutic paracentesis. Further evaluation for therapeutic paracentesis next week is anticipated, If necessary. Dictated by: Yuri Harman M.D. on 06/03/2016 at 10:14 US ABDOMEN, LIMITED IMPRESSION: Small amount of ascites present with current volume not sufficient for therapeutic paracentesis. Dictated by: Suhail CHAVARRIA Interpreted: Jeanna Walters MD on 06/04/2016 at 14:31 Plan Impression Impression #1 acute kidney injury with chronic kidney disease stage IV A sorry number to cardiorenal syndrome #3 anemia secondary to chronic kidney disease Recommendations #1 above I discussed the case with Dr. Kapoor and agree with the exchange clerk to oral medications. It is probably hopefully we can send him home on a stable medication regime and avoid dialysis. Refugio Sprague DO Jun 07, 2016 11:05
--- NOTE | 2016-06-07 16:14 | PCM.PNMED ---
Subjective Date of Service Jun 07, 2016 Subjective Patient is a pleasant 86-year-old male with systolic heart failure, atrial fibrillation, chronic kidney disease, hypertension, type II diabetes, COPD, coronary artery disease status post CABG, status post AAA repair, and liver cirrhosis presenting as a referral from nephrology clinic with worsening lower extremity swelling, scrotal swelling and shortness of breath. Hospital day #6. No overnight events. The patient reports some mild abdominal distention and lower extremity edema. He states the lower extremity edema is improved compared to on admit. The swelling in his groin is also improved and he feels it is back to baseline. Exam Vital Signs Vital Sign - Last Date Time Temp Pulse Resp B/P Pulse Ox O2 Delivery O2 Flow Rate FiO2 06/07/16 09:45 36.3 77 20 111/67 95 Room Air 06/03/16 20:16 2.00 Intake and Output 06/06/16 06/06/16 06/07/16 Cumulative From/Thru 15:00 23:00 07:00 06/02/16 16:45 - 06/07/16 05:20 Intake Total 1356 ml 9630 ml Output Total 2950 ml 07149 ml Balance -1594 ml -6970 ml Intake Oral 1356 ml 9570 ml IV Total 60 ml Output Urine Total 2950 ml 79189 ml Estimated Blood Loss 0 ml # Voids 2 30 # Bowel Movements 1 4 Exam General: Patient supine in bed, well-developed, well-nourished, appropriately interactive HEENT: Normocephalic, atraumatic. Moist conjunctivae, and no lid lag. Cardiovascular: Irregularly irregular. II/ systolic murmur and apex and axilla Pulmonary: Clear to auscultation bilaterally with no crackles, wheezes, or rhonchi. Normal respiratory effort with no use of accessory muscles. Abdomen: Bowel tones present. Moderate distension. Extremities: Bilateral lower extremity pitting edema to thighs Skin: Normal temperature, turgor, and texture; no rashes appreciated. Ecchymosis on upper extremities bilaterally Neurological: Cranial nerves grossly intact. Psychiatric: Normal mood and affect. Alert and oriented to person, place, and time IVs and Medications Medications Reviewed: Medications were reviewed in detail Lab and Diagnostics Result Diagram: 06/07/16 0240 06/07/16 0240 Additional Diagnostics . US ABDOMEN, LIMITED IMPRESSION: The amount of ascites currently present is insufficient for safe therapeutic paracentesis. Further evaluation for therapeutic paracentesis next week is anticipated, If necessary. Dictated by: Yuri Harman M.D. on 06/03/2016 at 10:14 US ABDOMEN, LIMITED IMPRESSION: Small amount of ascites present with current volume not sufficient for therapeutic paracentesis. Dictated by: Suhail CHAVARRIA Interpreted: Jeanna Walters MD on 06/04/2016 at 14:31 Assessment & Plan Patient is an 86-year-old gentleman with chronic systolic congestive heart failure, chronic atrial fibrillation, pulmonary hypertension and coronary artery disease admitted for anasarca. Hospital day #6. 1. Acute on chronic anasarca. Present on admission. Active - Etiology unknown, most likely secondary to hepatorenal syndrome with underlying cirrhosis - Paracentesis showed fluid pocket right upper quadrant, cannot be safely drained at this time - Nephrology consult, we appreciate the recommendations - Per nephrology. Lasix discontinued. Start torsemide 60mg BID and spironolactone 100mg daily - Chlorthalidone 25 mg by mouth daily - Tentative plan is to discharge patient with new diuretic regimen. If he fails on this regimen then dialysis may be considered. 2. Portal hypertension, chronic. Present on admission. Active - Secondary to cirrhosis - Management as above 3. Chronic kidney disease, stage 4. Present on admission. Improving - Most likely secondary to hepatorenal syndrome - Monitor urine output 4. Acute on chronic systolic heart failure. Present on admission - Echocardiogram 04/27/2016 showed normal LV, estimated EF 45-50%. RV mildly dilated with moderate reduction in function. Pulmonary hypertension - Telemetry - Diuresis as above - Daily weights. Monitor I/Os 5. Chronic anemia. Present on admission. Ongoing - Most likely secondary to CKD and iron deficiency - Aranesp - Continue to monitor 6. Cirrhosis with thrombocytopenia, chronic. Present on admission - History of CT and ultrasound suggestive of diagnosis - US guided paracentesis did show fluid pocket right upper quadrant as in #1 - Continue to monitor 7. Chronic atrial fibrillation. Present on admission. Ongoing - Currently rate controlled. Med rec does not show rate controlling home medication - Not on anticoagulation due to history of subdural hematoma, patient also reluctant to start anticoagulation medication - Telemetry - Continue to monitor 8. COPD. Present admission - Continue home Brovana - DuoNeb PRN 9. Hyperlipidemia, chronic. Present on admission - Continued home atorvastatin 20 mg daily 10. Benign prostatic hyperplasia, chronic. Present on admission - Continue home Terazosin 11. Diabetes mellitus Type 2, chronic. Present admission - HbA1c 7.4% (05/04/2016) - Per nephrology Hold home metformin - Low-dose correctional scale insulin - Lantus 10u HS 12. Right upper lobe mass on chest x-ray. Present on admission - Persistent mass-like opacity in right upper lobe seen on prior imaging studies - Follow-up with back maker as outpatient - Acetaminophen as needed for mild pain/fever/headache - Bowel regimen as needed - Antiemetic as needed Disposition: Starting more aggressive diuresis regimen that the patient may be discharged with. Anticipate discharge in about 1 to 2 days. Pain Evaluation: Adequate Pain Control VTE Prophylaxis: Sub-Q Heparin (Unfractionated) VTE Mechanical Devices: Intermittant Pneumatic CD Resuscitation Status: DNR/DNI:Do Not Resuscitate/Intubate Attending Statement The patient was seen and examined together with Dr. Wells on 06/07/2016 and I agree with the history, exam and plan as outlined in the note above. . Nick Wells DO Jun 07, 2016 16:13 Leland Noel MD June 08, 2016 07:38
[2016-06-07 17:18] VITALS: BP 106/62; PULSE 69; RESP 20; O2SAT 94
--- NOTE | 2016-06-07 18:34 | NUR ---
Uneventful shift Pt edema continues to improve. Urine output this shift 177. Lungs still demonstrate fine crackles in bases, SAO2 remains in mid 90s on RA. Pt was able to shower independently.
[2016-06-07 21:03] VITALS: BP 117/65; PULSE 77; RESP 18; O2SAT 94
[2016-06-08 03:35] LABS: BASOPHILS % (AUTO) 0.4 % (0-3); EOSINOPHILS % (AUTO) 1.7 % (0-5); MONOCYTES % (AUTO) 10.2 % (4-12); Mean Corpuscular Hemoglobin 27.8 pg (27.0-35.0); Mean Corpuscular Volume 91.1 fL (81-100); NEUTROPHILS % (AUTO) 69.8 % (40-74); Platelet Count 80 bil/L (150-400)
[2016-06-08 03:40] VITALS: BP 108/65; PULSE 73; RESP 18; O2SAT 94
[2016-06-08 04:18] LABS: Magnesium 2.4 mg/dL (1.6-2.6)
--- NOTE | 2016-06-08 07:29 | NUR ---
Restful Night Pt had another restful night w/ no c/o pain, vitals stable and pt voiding independently w/ urinal at bedside.
[2016-06-08 08:26] VITALS: BP 102/63; PULSE 78; RESP 18; O2SAT 94
[2016-06-08] MEDS: Dorzolamide 2% 10 mL Ophthalmic Solution BOTH_EYES SCH (08:29)
[2016-06-08] MEDS: Insulin LISPRO 300 Unit/3 mL Inj SUBQ SCH ×2 (08:29→12:00)
[2016-06-08] MEDS: Brimonidine 0.2% 5 mL Ophthalmic Solution BOTH_EYES SCH (08:29)
[2016-06-08] MEDS ORDERED: TORS20TA PO (11:59)
[2016-06-08] MEDS ORDERED: SPIR100T3 PO (11:59)
[2016-06-08] MEDS ORDERED: HYG25 PO (11:59)
--- NOTE | 2016-06-08 12:09 | PCM.DIMED ---
Reena Maza DO 06/08/16 1205: Discharge Instructions Date of Service June 08, 2016 Dates of Hospitalization Jun 02, 2016 at 16:12 Discharge Diagnosis Discharge Diagnosis 1. Acute on chronic anasarca. 2. Portal hypertension, chronic. 3. Chronic kidney disease, stage 4. 4. Acute on chronic systolic heart failure. 5. Chronic anemia. 6. Cirrhosis with thrombocytopenia, chronic. 7. Chronic atrial fibrillation. 8. COPD, chronic. 9. Hyperlipidemia, chronic. 10. Benign prostatic hyperplasia, chronic. 11. Diabetes mellitus Type 2, chronic. 12. Right upper lobe mass on chest x-ray. Diet Heart Healthy Activity No restrictions Call your provider Fever or Chills, Bleeding, Chest pain, Weakness (unilateral) Patient Instructions Follow up with Nephrology on Wednesday as planned for lab work. Follow up with Primary care physician within the next week to review medications and hospital stay. Follow-up Provider: Terra Banks MD Follow-up with PCP in: Other (Wednesday, June 10. ) Provider: Tamy Johnson Follow-up in: 1 week Leland Noel MD 06/08/16 1640: Discharge Instructions Attending's Statement The patient was seen and examined together with Dr. Maza on 06/08/2016 and I agree with the history, exam and plan as outlined in the note above. . Reena Maza DO June 08, 2016 12:05 Leland Noel MD June 08, 2016 16:40
--- NOTE | 2016-06-08 14:01 | NUR ---
Discharge Patient states breathing is much better. Maintaining SPO2 mid 90s on RA denies dyspnea. VSS. IV DC'd intact. CHF and diabetic teaching done. Patient will follow up with nephrology and PCP this week. Patient left unit via WC with all personal belongings accompanied by his brother. Discharged home via personal vehicle
--- NOTE | 2016-06-08 14:11 | PCM.PNNEPH ---
Subjective Date of Service June 08, 2016 Subjective He is feeling better overall. Lower extremity swelling and scrotal swelling have improved. Kidney function is relatively stable. Exam Vital Signs Vital Sign - Last Date Time Temp Pulse Resp B/P Pulse Ox O2 Delivery O2 Flow Rate FiO2 06/08/16 08:26 36.6 78 18 102/63 94 Room Air 06/03/16 20:16 2.00 Intake and Output 06/07/16 06/07/16 06/08/16 Cumulative From/Thru 15:00 23:00 07:00 06/02/16 16:45 - 06/08/16 05:18 Intake Total 586 ml 1100 ml 418 ml 90483 ml Output Total 2425 ml 1773 ml 1200 ml 23930 ml Balance -1839 ml -673 ml -782 ml -10691 ml Intake Oral 586 ml 1100 ml 418 ml 12035 ml IV Total 60 ml Output Urine Total 2425 ml 1773 ml 1200 ml 25532 ml Estimated Blood Loss 0 ml # Voids 30 # Bowel Movements 1 5 Exam General: Awake alert oriented 3 in on acute distress. HEENT: Normocephalic, atraumatic. Moist conjunctivae,. Cardiovascular: Irregularly irregular. II/ systolic murmur and apex and axilla Pulmonary: Clear to auscultation bilaterally with no crackles, wheezes, or rhonchi. Abdomen: Bowel tones present. Moderate distension. Extremities: 2+ edema. Skin: Ecchymosis on upper extremities bilaterally Neurological: Cranial nerves grossly intact. Psychiatric: Normal mood and affect. Alert and oriented to person, place, and time Lab and Diagnostics Result Diagram: 06/08/16 0320 06/08/16 0320 Additional Diagnostics . US ABDOMEN, LIMITED IMPRESSION: The amount of ascites currently present is insufficient for safe therapeutic paracentesis. Further evaluation for therapeutic paracentesis next week is anticipated, If necessary. Dictated by: Yuri Harman M.D. on 06/03/2016 at 10:14 US ABDOMEN, LIMITED IMPRESSION: Small amount of ascites present with current volume not sufficient for therapeutic paracentesis. Dictated by: Suhail CHAVARRIA Interpreted: Jeanna Walters MD on 06/04/2016 at 14:31 Plan Impression 1. Acute kidney injury on chronic kidney disease stage IV 2. Cardiorenal syndrome 3. Chronic atrial fibrillation 4. Liver cirrhosis 5. HFrEF 6. History of urinary retention and BPH 7. Type II diabetes with renal manifestation Plan: Continue torsemide, chlorthalidone and Aldactone. Follow up with renal in 2 days. Low salt diet 2 g per day. No objection to discharge patient home. Terra Banks MD June 08, 2016 14:11
--- NOTE | 2016-06-08 14:36 | NUR ---
Social Work Note: Discharge Data& Assessment: EMR reviewed. Per pt is medically improved and ready to discharge home via POV with [facility] PT, RN and SW to follow. SW met with pt at bedside to confirm discharge plan and assess for any unmet needs. Pt confirmed plan to discharge home, pt is excited to try home health services and is hopeful it will help prevent more readmissions into the hospital. Pt brother is coming to transport pt home today. Byron from [facility] has been notified of pt discharge, F2F faxed. Pt requires RN for vitals, medication management and blood sugar checks. Pt requires PT for strengthening, ambulation and balance. Pt also requested SW in the community through [facility]. Pt denies any other needs. No other discharge needs identified. All updated and agreeable to plan. Plan: Per pt is medically ready to discharge home via POV with [facility] PT, RN and SW to follow. Pt denies any other needs. No other discharge needs identified. All updated and agreeable to plan. JANICE Aguilera
--- NOTE | 2016-06-08 16:48 | NUR ---
spiritual care: pt request/physician referral lengthy conversational visit. pt reflected on spiritual struggles as he faces new medical condition and decisions. Pt welcomed prayer and also name/phone of local christianity he hopes to explore. He shared about his stephan development, relies on prayer and bible reading and explored his sense of purpose. Prayer.
--- NOTE | 2016-06-09 21:00 | PCM.DC.MED ---
Discharge Summary Date of Service June 09, 2016 Dates of Hospitalization Date of Hospital Admission Jun 02, 2016 at 16:12 Date of Discharge: June 08, 2016 Providers: Admitting Physician: Tamy Gonzalez DO Primary Care Physician: Tamy Johnson Attending Physician: Tamy Gonzalez DO Diagnosis at Time of Discharge Diagnosis at Time of Discharge 1. Acute on chronic anasarca. 2. Portal hypertension, chronic. 3. Chronic kidney disease, stage 4. 4. Acute on chronic systolic heart failure. 5. Chronic anemia. 6. Cirrhosis with thrombocytopenia, chronic. 7. Chronic atrial fibrillation. 8. COPD, chronic. 9. Hyperlipidemia, chronic. 10. Benign prostatic hyperplasia, chronic. 11. Diabetes mellitus Type 2, chronic. 12. Right upper lobe mass on chest x-ray. Consultations Nephrology Procedures Other Diagnostics . US ABDOMEN, LIMITED IMPRESSION: The amount of ascites currently present is insufficient for safe therapeutic paracentesis. Further evaluation for therapeutic paracentesis next week is anticipated, If necessary. Dictated by: Yuri Harman M.D. on 06/03/2016 at 10:14 US ABDOMEN, LIMITED IMPRESSION: Small amount of ascites present with current volume not sufficient for therapeutic paracentesis. Dictated by: Suhail CHAVARRIA Interpreted: Jeanna Walters MD on 06/04/2016 at 14:31 Brief History Per admission history and physical on 06/02/2016. Nick Wells DO Patient is a pleasant 86-year-old male with systolic heart failure, atrial fibrillation, chronic kidney disease, hypertension, type II diabetes, COPD, coronary artery disease status post CABG, status post AAA repair, and liver cirrhosis presenting as a referral from nephrology clinic with worsening lower extremity swelling, scrotal swelling, difficulty urinating and shortness of breath. Patient has multiple hospitalizations due to CHF exacerbation and cardiorenal syndrome. He was most recently hospitalized on 05/26 was just discharged approximately 4 days ago. During that hospitalization, the patient had abdominal paracentesis with 5L of ascites removed. His renal function improved with diuresis and creatinine was 2.58 on discharge. The patient was also found to have urinary retention requiring Alatorre catheter placement. The patient followed up today with strategic account director, Dr. Hammond, where he was found to have worsening lower extremity swelling, scrotal swelling and dyspnea. It is noted that he has gained approximately 20 lbs over 3-4 days. The patient was referred to [facility] for further management. At time of visit, the patient reports some abdominal fullness and shortness of breath but remarks that it is only "half as bad" as during his previous hospitalization. Patient reports taking his medications as directed. He reports pain in his groin from the swelling but denies any difficulty urinating, hematuria, or dysuria. Patient denies chest pain, fever, chills, cough, nausea, emesis, abdominal pain, lightheadedness, dizziness, syncope. Vitals on admit: temp 36.7, HR 74, RR 16 satting 98% on room air, BP 102/56. Hospital Course 86-year-old male with chronic systolic congestive heart failure, chronic atrial fibrillation, pulmonary hypertension and coronary artery disease admitted for anasarca. 1. Acute on chronic anasarca. Present on admission. Treated, improved. - Etiology unknown, most likely secondary to hepatorenal syndrome with underlying cirrhosis - Paracentesis showed fluid pocket right upper quadrant, could not safely be drained. - Per nephrology. Lasix was discontinued. Started torsemide 60mg BID and spironolactone 100mg daily - Chlorthalidone 25 mg by mouth daily - Patient discharged on new diuretic regimen with plan to followup in 2 days with Nephrology for BMP. - Discussed potential for dialysis if patient fails on this regimen. 2. Portal hypertension, chronic. Present on admission. Ongoing - Secondary to cirrhosis - Managed as above 3. Chronic kidney disease, stage 4. Present on admission. Improved - Most likely secondary to hepatorenal syndrome 4. Acute on chronic systolic heart failure. Present on admission. Treated. - Echocardiogram 04/27/2016 showed normal LV, estimated EF 45-50%. RV mildly dilated with moderate reduction in function. Pulmonary hypertension - Diuresis as above - Monitored daily weights and I/Os 5. Chronic anemia. Present on admission. Ongoing - Most likely secondary to CKD and iron deficiency - Aranesp 6. Cirrhosis with thrombocytopenia, chronic. Present on admission. Ongoing - History of CT and ultrasound suggestive of diagnosis - US guided paracentesis did show fluid pocket right upper quadrant as in #1 7. Chronic atrial fibrillation. Present on admission. Ongoing - Currently rate controlled. Med rec does not show rate controlling home medication - Not on anticoagulation due to history of subdural hematoma, patient also reluctant to start anticoagulation medication - Monitored with telemetry. 8. COPD, chronic. Present admission, Ongoing - Continued home Brovana - DuoNebs PRN 9. Hyperlipidemia, chronic. Present on admission. Ongoing - Continued home atorvastatin 20 mg daily 10. Benign prostatic hyperplasia, chronic. Present on admission. Ongoing - Continued home Terazosin 11. Diabetes mellitus Type 2, chronic. Present admission. Ongoing - HbA1c 7.4% (05/04/2016) - Per nephrology Held home metformin. - Patient received Lantus 10u HS and Low-dose correctional scale insulin 12. Right upper lobe mass on chest x-ray. Present on admission. Ongoing. - Persistent mass-like opacity in right upper lobe seen on prior imaging studies - Follow-up with logistics associate as outpatient Exam Vital Signs (Last) Date Time Temp Pulse Resp B/P Pulse Ox O2 Delivery O2 Flow Rate FiO2 06/08/16 08:26 36.6 78 18 102/63 94 Room Air 06/03/16 20:16 2.00 Exam General: Patient supine in bed, well-developed, well-nourished, appropriately interactive HEENT: Normocephalic, atraumatic. Moist conjunctivae, and no lid lag. Cardiovascular: Irregularly irregular. II/ systolic murmur and apex and axilla Pulmonary: Clear to auscultation bilaterally with no crackles, wheezes, or rhonchi. Normal respiratory effort with no use of accessory muscles. Abdomen: Bowel tones present. Moderate distension. Extremities: Bilateral lower extremity pitting edema to thighs Skin: Normal temperature, turgor, and texture; no rashes appreciated. Ecchymosis on upper extremities bilaterally Neurological: Cranial nerves grossly intact. Psychiatric: Normal mood and affect. Alert and oriented to person, place, and time Test 06/02/16 16:58 06/02/16 23:20 06/03/16 03:23 06/04/16 02:00 Urine Color Yellow (YELLOW) Urine Appearance Clear (CLEAR,HAZY) Urine pH 7.0 (5.0-8.0) Urine Specific [place] <1.005 (1.003-1.035) Urine Protein Negativemg/dL (NEG,TRACE) Urine Glucose (UA) Negativemg/dL (NEGATIVE) Urine Ketones Negativemg/dL (NEGATIVE) Urine Occult Blood Negative (NEGATIVE) Urine Nitrite Negative (NEGATIVE) Urine Bilirubin Negative (NEGATIVE) Urine Urobilinogen Normalmg/dL (NORMAL) Urine Leukocyte Esterase Negative (NEGATIVE) Urine RBC 0-2/hpf (0-2) Urine WBC 0-5/hpf (0-5) Urine Epithelial Cells Occasional/hpf (NONE-MOD) Urine Crystals None seen (NONE SEEN) Urine Bacteria None/hpf (NONE-FEW) Urine Hyaline Casts None/lpf (NONE) Urine Granular Casts None seen (NONE SEEN) Urine Waxy Casts None seen (NONE SEEN) Urine Red Blood Cell Casts None seen (NONE SEEN) Urine White Blood Cell Casts None seen (NONE SEEN) Urine Mucus None seen (None Seen) Urine Trichomonas None seen (NONE SEEN) Urine Yeast None (NONE SEEN) Urinalysis Comment None Urine Culture Reflexed Not indicated Hold Urine Received (Received) Prothrombin Time 11.7sec (8.1-12.5) Prothromb Time International Ratio 1.09ratio Iron Level 70ug/dL (35-150) Total Iron Binding Capacity 359ug/dL (250-450) Percent Iron Saturation 19%sat (15-50) Unsaturated Iron Binding 288.6ug/dL Test 06/08/16 03:20 White Blood Count 4.6th/mm3 (3.8-10.1) Red Blood Count 3.13mil/mm3 (4.40-5.80) Hemoglobin 8.7g/dL (13.8-17.2) Hematocrit 28.5% (41.0-50.0) Mean Corpuscular Volume 91.1fL (81-100) Mean Corpuscular Hemoglobin 27.8pg (27.0-35.0) Mean Corpuscular Hemoglobin Concent 30.5% (32.0-37.0) Red Cell Distribution Width 24.5% (12.3-15.4) Platelet Count 80bil/L (150-400) Neutrophils (%) (Auto) 69.8% (40-74) Lymphocytes (%) (Auto) 17.7% (14-46) Monocytes (%) (Auto) 10.2% (4-12) Eosinophils (%) (Auto) 1.7% (0-5) Basophils (%) (Auto) 0.4% (0-3) Sodium Level 137mEq/L (134-144) Potassium Level 3.8mEq/L (3.5-5.2) Chloride Level 91mEq/L (97-108) Carbon Dioxide Level 28mmol/L (18-29) Blood Urea Nitrogen 101mg/dL (8-27) Creatinine 2.80mg/dL (0.76-1.27) Estimat Glomerular Filtration Rate 23mL/min (>59) Glucose Level 141mg/dL (60-99) Calcium Level 8.5mg/dL (8.5-10.1) Magnesium Level 2.4mg/dL (1.6-2.6) Total Bilirubin 1.3mg/dL (0.0-1.2) Aspartate Amino Transf (AST/SGOT) 28U/L (0-50) Alanine Aminotransferase (ALT/SGPT) 16U/L (0-44) Alkaline Phosphatase 108U/L (25-160) Total Protein 5.7g/dL (6.4-8.4) Albumin 3.9g/dL (3.4-5.0) Discharge Medications Discharge Medications Allopurinol (Allopurinol) 100 Mg Tablet 100 MG PO QAM (Reported) Arformoterol Tartrate (Brovana) 15 Mcg/2 Ml Vial.neb 15 MCG IH BID (Reported) Ascorbic Acid (Vitamin C) 500 Mg Capsule.er 500 MG PO QAM (Reported) Aspirin (Aspirin) 81 Mg Tablet 81 MG PO QAM (Reported) Atorvastatin Calcium (Atorvastatin Calcium) 20 Mg Tablet 20 MG PO HS (Reported) Brimonidine Tartrate (Brimonidine 0.2% Oph Soln) 5 Ml Drops 1 GTT LEFT_EYE TID ( Reported) Chlorthalidone (Chlorthalidone) 25 Mg Tablet 25 MG PO DAILY Prescribed by: CARO LEDEZMA, Cider Vinegar (Apple Cider Vinegar) 600 Mg Capsule 600 MG PO DAILY (Reported) Cyanocobalamin (Vitamin B-12) (Vitamin B-12) 50 Mcg Tablet 100 MCG PO DAILY ( Reported) Dorzolamide (Dorzolamide) 10 Ml Drops 1 GTT BOTH_EYES BID (Reported) Fluticasone Propionate (Flovent HFA 220 mcg) 12 Gm Aer.w.adap 1 PUFF IH BID ( Reported) Fosinopril Sodium (Fosinopril Sodium) 20 Mg Tablet 10 MG PO HS (Reported) Latanoprost (Latanoprost) 2.5 Ml Drops 1 GTT BOTH_EYES HS (Reported) Metformin ER (Metformin ER) 500 Mg Tablet 500 MG PO QAM (Reported) Multivitamin (Multivitamins) 1 Each Capsule 1 EACH PO DAILY (Reported) Nitroglycerin 0.2 mg/hr Patch (Nitroglycerin 0.2 mg/hr Patch) 1 Each Patch 0.2 MG TRANSDERM QPM (Reported) APPLY AT 1900, OFF AT 7 AM Spironolactone (Spironolactone) 100 Mg Tablet 100 MG PO DAILY Prescribed by: CARO LEDEZMA DO Terazosin (Terazosin) 10 Mg Capsule 10 MG PO HS (Reported) Torsemide (Demadex) 20 Mg Tablet 60 MG PO BID Prescribed by: CARO LEDEZMA DO As needed Insulin Glargine (Lantus U100 Solostar Insulin Pen) 100 Unit/1 Ml Insuln.pen 12 UNIT SUBQ QAM PRN PRN blood sugar >150 (Reported) Levalbuterol HCl (Xopenex Concentrate) 1.25 Mg/0.5 Ml Vial.neb 1.25 MG IH BID PRN PRN For Shortness of Breath (Reported) Followup Plan Discharge Diet: Heart Healthy Discharge Activity: No restrictions Patient Instructions Follow up with Nephrology on Wednesday as planned for lab work. Follow up with Primary care physician within the next week to review medications and hospital stay. Follow-up Provider: Terra Banks MD Follow-up with PCP in: Other (Wednesday, June 10. ) Provider: Tamy Johnson Follow-up in: 1 week Time spent Greater than 30 minutes was spent in preparation of discharge with greater than 50% of that time dedicated to patient counseling and coordination of care. . Attending Statement The patient was seen and examined together with Dr. Ledezma on 06/08/2016 and I agree with the history, exam and plan as outlined in the note above. . copies to: Tamy Johnson Courtney M DO June 09, 2016 21:00 Leland Noel MD June 15, 2016 08:34
== END 2016-06-08 14:10 | disposition home health service (06) | DRG 682 ==
LOC: PCC 16:12
PROVIDERS: ADMIT Neuromusculoskeletal Medicine & OMM; ATTEND Neuromusculoskeletal Medicine & OMM
DX: N17.9 Acute kidney failure, unspecified (principal); I50.23 Acute on chronic systolic (congestive) heart failure; K76.7 Hepatorenal syndrome; K76.6 Portal hypertension; I13.0 Hypertensive heart and chronic kidney disease with heart failure and stage 1 through stage 4 chronic kidney disease, or unspecified chronic kidney disease; N18.4 Chronic kidney disease, stage 4 (severe); E11.8 Type 2 diabetes mellitus with unspecified complications; I25.10 Atherosclerotic heart disease of native coronary artery without angina pectoris; I48.2 Chronic atrial fibrillation; E78.5 Hyperlipidemia, unspecified; I25.5 Ischemic cardiomyopathy; E11.21 Type 2 diabetes mellitus with diabetic nephropathy; K74.60 Unspecified cirrhosis of liver; D63.1 Anemia in chronic kidney disease; D50.9 Iron deficiency anemia, unspecified; R91.8 Other nonspecific abnormal finding of lung field; D69.6 Thrombocytopenia, unspecified; Z66 Do not resuscitate; N40.0 Benign prostatic hyperplasia without lower urinary tract symptoms; Z87.891 Personal history of nicotine dependence; Z79.4 Long term (current) use of insulin; Z79.82 Long term (current) use of aspirin; Z95.1 Presence of aortocoronary bypass graft

== ENCOUNTER 2016-06-22 15:43 | Emergency (ER) | payer MEDICARE, OTHER ==
[~2016-06-22] VITALS: Ht 182.9 cm; Wt 93.6 kg
[~2016-06-22 15:43] MED LIST changes: +HYG25 PO; -POTA20TA16 PO; +SPIR100T3 PO; -SPIR50TA2 PO
[2016-06-22 16:04] VITALS: BP 107/60; PULSE 88; RESP 18; O2SAT 96
--- NOTE | 2016-06-22 18:07 | DRSVH ---
PROCEDURE: CT BRAIN WITHOUT CONTRAST ([id number]) INDICATIONS: fall last week with large amount of bruising to fa TECHNIQUE: Noncontrast 4.5 mm thick angled axial sections acquired from the foramen magnum to the vertex, with c oronal reformats. COMPARISON: [facility], CT, HEAD WITHOUT CONTRAST, 01/30/2015, 9:45. FINDINGS: Image quality: Excellent. CSF spaces: Basal cisterns are patent. No extra-axial fluid collections. The ventricles are symmet dameon in size and shape. Brain: No intracranial bleeds or masses. There is cerebral volume loss for age, with resultant vent ricular and sulcal prominence. There are periventricular and deep white matter chronic small vessel ischemic changes. There is intracranial internal carotid artery atherosclerosis. Skull and face: Bilateral frontoparietal divya holes are present, as before. Calvarium and visualized facial bones are otherwise appear intact, without suspicious lesions. Sinuses: Visualized sinuses and mastoids are clear. IMPRESSION: No acute intracranial abnormality. Dictated by: Siobhan Lowery M.D. on 06/22/2016 at 18:05 Approved by: Siobhan Lowery M.D. on 06/22/2016 at 18:06
--- NOTE | 2016-06-22 18:38 | ED.REPORT ---
HPI-Head Prob / Injury Date of Service June 22, 2016 ED Provider: Sancho Monique PA-C Jerry is an 86-year-old male with extensive medical history presenting with a chief complaint of a spreading bruise over his head and face. This was noticed by his visiting nurse, who suggested he present to the emergency department. Patient reports that approximately one week ago he bent over to empty the shredder in his office and struck his head against a desk. He did not notice any injury at the time. Denies losing consciousness, vomiting, seizure activity , use of blood thinners other than aspirin, headache. Patient reports he first noted the hematoma couple days later and it slowly spread over his forehead and face until about 2 days ago, when it stopped growing. He denies any other complaints including dizziness, syncopal, presyncope, vision changes, nausea, neck pain. He also notes 2 wounds on the ulnar aspect of his left forearm. He cannot recall how they occurred. Reports a history of intracranial injury which required treatment by surgery at [facility]. Nursing Notes Stated Complaint: NURSE REQUEST Chief Complaint: General Complaint Nursing Notes Reviewed: Yes Allergies: Coded Allergies: Heparin Analogues (Verified Allergy, Severe, bleeding, 06/02/16) warfarin (Verified Allergy, Severe, bleeding, 06/02/16) dabigatran etexilate (Verified Adverse Reaction, Severe, bled into lungs, 06/02/16) Scheduled Allopurinol (Allopurinol) 100 Mg Tablet 100 MG PO QAM Arformoterol Tartrate (Brovana) 15 Mcg/2 Ml Vial.neb 15 MCG IH BID Ascorbic Acid (Vitamin C) 500 Mg Capsule.er 500 MG PO QAM Aspirin (Aspirin) 81 Mg Tablet 81 MG PO QAM Atorvastatin Calcium (Atorvastatin Calcium) 20 Mg Tablet 20 MG PO HS Brimonidine Tartrate (Brimonidine 0.2% Oph Soln) 5 Ml Drops 1 GTT LEFT_EYE TID Chlorthalidone (Chlorthalidone) 25 Mg Tablet 25 MG PO DAILY Cider Vinegar (Apple Cider Vinegar) 600 Mg Capsule 600 MG PO DAILY Cyanocobalamin (Vitamin B-12) (Vitamin B-12) 50 Mcg Tablet 100 MCG PO DAILY Dorzolamide (Dorzolamide) 10 Ml Drops 1 GTT BOTH_EYES BID Fluticasone Propionate (Flovent HFA 220 mcg) 12 Gm Aer.w.adap 1 PUFF IH BID Fosinopril Sodium (Fosinopril Sodium) 20 Mg Tablet 10 MG PO HS Latanoprost (Latanoprost) 2.5 Ml Drops 1 GTT BOTH_EYES HS Metformin ER (Metformin ER) 500 Mg Tablet 500 MG PO QAM Multivitamin (Multivitamins) 1 Each Capsule 1 EACH PO DAILY Nitroglycerin 0.2 mg/hr Patch (Nitroglycerin 0.2 mg/hr Patch) 1 Each Patch 0.2 MG TRANSDERM QPM APPLY AT 1900, OFF AT 7 AM Spironolactone (Spironolactone) 100 Mg Tablet 100 MG PO DAILY Terazosin (Terazosin) 10 Mg Capsule 10 MG PO HS Torsemide (Demadex) 20 Mg Tablet 60 MG PO BID Scheduled PRN Insulin Glargine (Lantus U100 Solostar Insulin Pen) 100 Unit/1 Ml Insuln.pen 12 UNIT SUBQ QAM PRN PRN blood sugar >150 Levalbuterol HCl (Xopenex Concentrate) 1.25 Mg/0.5 Ml Vial.neb 1.25 MG IH BID PRN PRN For Shortness of Breath General Time Seen by Provider: 18:37 Chief Complaint Blunt head trauma Past Medical History Past Medical History Notes: PCP: Dr. Yoo Past Medical History Emphysema CHF Atrial fibrillation Reports: COPD, Coronary artery disease, Diabetes mellitus, Hypertension Past Surgical History Abdominal aneurysm Popliteal Cyst removal Reports: CABG Family History Noncontributory Smoking History Former Smoker Social History Alcohol Use: "Social" Drug Use: Denies drug use Other Social History: Lives alone, Local resident Ambulatory Status Independent Review of Systems Review of Systems Note: Negative unless stated otherwise in history of present illness Physical Exam General: Well appearing, well developed, well nourished, no acute distress. Head: 2 cm area of crust on the left scalp surrounded by a 2 cm hematoma and a dark bruise which spreads down the patient's face over his left eye, bridge of nose and left side of the face to the neck. No deformity, redness, swelling, discharge. Eyes: No scleral icterus or injection. No discharge. Vision grossly intact. ENT: Voice clear, hearing grossly intact. Respiratory: Regular rate and rhythm. Breath sounds present, clear to auscultation and equal bilaterally. No respiratory distress. No increased work of breathing, speaks in complete sentences. Cardiovascular: Regular rate and rhythm, without murmur, gallop or rub. No pedal edema. Skin: Warm and dry. Several bruises as well as to moderate sized skin tears on the left forearm. One of the ulnar aspect of the wrist which appears to be relatively new and healing skin tear on the midshaft ulnar aspect. Neurological: Normal finger-nose, heel-mock, rapid hand. Negative pronator drift Cranial nerves: Vision grossly intact, PERRL, EOMI. Facial motion symmetrical, sensation to light touch over forehead, maxilla and mandible present and equal B /L. Voice clear and fluent, no drooling/pooling of saliva, uvula rises midline. Psychological: Alert and oriented. Speech appropriate, linear and logical. Behavior appropriate. Initial Vital Signs Vital Signs (First) Date Time Temp Pulse Resp B/P Pulse Ox O2 Delivery O2 Flow Rate FiO2 06/22/16 16:04 36.2 88 18 107/60 96 Initial VS: Vital signs normal Interpretation & Diagnostics Lab Results Interpretation Result Diagram: 06/22/16193406/22/161934 Test 06/22/16 17:33 06/22/16 19:35 Hold Urine Received (Received) White Blood Count 7.3th/mm3 (3.8-10.1) Red Blood Count 3.54mil/mm3 (4.40-5.80) Hemoglobin 9.9g/dL (13.8-17.2) Hematocrit 31.6% (41.0-50.0) Mean Corpuscular Volume 89.3fL (81-100) Mean Corpuscular Hemoglobin 28.0pg (27.0-35.0) Mean Corpuscular Hemoglobin Concent 31.3% (32.0-37.0) Red Cell Distribution Width 23.4% (12.3-15.4) Platelet Count 135bil/L (150-400) Neutrophils (%) (Auto) 77.1% (40-74) Lymphocytes (%) (Auto) 14.1% (14-46) Monocytes (%) (Auto) 8.3% (4-12) Eosinophils (%) (Auto) 0.1% (0-5) Basophils (%) (Auto) 0.3% (0-3) Prothrombin Time 11.6sec (8.1-12.5) Prothromb Time International Ratio 1.08ratio Activated Partial Thromboplast Time 25.4sec (22.8-33.0) Sodium Level 133mEq/L (134-144) Potassium Level 4.4mEq/L (3.5-5.2) Chloride Level 90mEq/L (97-108) Carbon Dioxide Level 24mmol/L (18-29) Blood Urea Nitrogen 121mg/dL (8-27) Creatinine 3.21mg/dL (0.76-1.27) Estimat Glomerular Filtration Rate 20mL/min (>59) Glucose Level 156mg/dL (60-99) Calcium Level 9.1mg/dL (8.5-10.1) Total Bilirubin 1.5mg/dL (0.0-1.2) Aspartate Amino Transf (AST/SGOT) 31U/L (0-50) Alanine Aminotransferase (ALT/SGPT) 18U/L (0-44) Alkaline Phosphatase 132U/L (25-160) Total Protein 6.5g/dL (6.4-8.4) Albumin 3.7g/dL (3.4-5.0) CT Head Interpretation PROCEDURE: CT BRAIN WITHOUT CONTRAST ([id number]) INDICATIONS: fall last week with large amount of bruising to fa IMPRESSION: No acute intracranial abnormality. Interpretation / Wet Read by: Interpret - Radiologist Re-Eval/Medical Decision Med Decision/Clinical Course I discussed this case with Dr. Andrews. 86-year-old male presented with a chief complaint of a spreading bruise over his scalp and face noticed by his home health nurse. Patient reports striking his head about a week ago and bruising emerging approximately 2 days later. Patient reports the bruise spread for several days and stopped spreading about 2 days ago. Denies use of blood thinners, loss of consciousness, headache, vomiting, seizures. Also complains of 2 skin tears on his left forearm. Physical examination reveals multiple bruises over the patient's arms as well as skin tears on his left forearm which appear to be healing without infection. There is a 2 cm area of crust on his scalp with an associated hematoma and a bruise which encompasses most of his forehead, the bridge of his nose and left cheek and into his neck. Neurological exam is normal. Otherwise benign examination. CT scan is normal, CBC and CMP reveal some abnormalities but are consistent with this patient's baseline according to the records. Platelets are low at 135 actually significantly improved from previous studies. PT/INR are normal as is PTT. The exception is his BUN, which is elevated to 121 and his creatinine is elevated to 3.21. I discussed this with the patient's roofing technician, who has an appointment available tomorrow at 2:00. Patient assures me he can be seen at that time. At this point I am reassured that there is no significant bleeding dyscrasia or head injury. I would have this patient is stable and safe to be discharged to home. His wounds are dressed and he wishes to be discharged. Advised nephrology and primary care follow-up as well as provided emergency return precautions. Patient verbalizes understanding of and consented to the plan. Discharge & Departure Primary Impression: Blunt head trauma Encounter type: initial encounter Qualified Code: S09.8XXA - Other specified injuries of head, initial encounter Additional Impression: Hematoma Disposition: Home All VS Reviewed: Yes Condition: Stable Additional Instructions: Evaluation in the emergency department for facial bruising includes history and physical examination as well as CT and blood tests. These are all reassuring this is not caused by an immediately dangerous condition. I am reassured there is unlikely be bleeding in your brain. Your blood tests do not indicate a bleeding problem. I believe you are stable and safe to go home. I do note that your kidney function tests show some decline since your last blood draw. I discussed this finding with Dr. Hammond. She has an opening and can see you in clinic tomorrow at 2. She will likely want to adjust your diuretics. Please follow up with her at that time. Return to emergency department for any new or worsening symptoms including increasing headache, vomiting, seizure activity. Referrals: Terra Banks MD EDSupervising Provider for APC: Teddy Andrews MD copies to: Terra Banks MD; Tamy Johnson Seth PA-C June 22, 2016 18:38
[2016-06-22 19:43] LABS: BASOPHILS % (AUTO) 0.3 % (0-3); EOSINOPHILS % (AUTO) 0.1 % (0-5); MONOCYTES % (AUTO) 8.3 % (4-12)
[2016-06-22 19:46] LABS: Mean Corpuscular Volume 89.3 fL (81-100); NEUTROPHILS % (AUTO) 77.1 % (40-74); Platelet Count 135 bil/L (150-400)
[2016-06-22 20:01] LABS: INR 1.08 ratio
[2016-06-22 21:00] VITALS: BP 103/56; PULSE 75; RESP 16; O2SAT 97
== END 2016-06-22 21:01 | disposition home or self-care (01) ==
LOC: SED 15:43
DX: S09.8XXA Other specified injuries of head, initial encounter (principal); S00.03XA Contusion of scalp, initial encounter; W22.8XXA Striking against or struck by other objects, initial encounter; Y93.89 Activity, other specified; Y92.89 Other specified places as the place of occurrence of the external cause; Y99.8 Other external cause status; I11.0 Hypertensive heart disease with heart failure; I50.9 Heart failure, unspecified; I48.91 Unspecified atrial fibrillation; I25.10 Atherosclerotic heart disease of native coronary artery without angina pectoris; J44.9 Chronic obstructive pulmonary disease, unspecified; E11.9 Type 2 diabetes mellitus without complications; Z79.4 Long term (current) use of insulin; Z79.84 Long term (current) use of oral hypoglycemic drugs; Z79.82 Long term (current) use of aspirin; Z87.891 Personal history of nicotine dependence; Z95.1 Presence of aortocoronary bypass graft; Z88.8 Allergy status to other drugs, medicaments and biological substances

== ENCOUNTER 2016-07-09 02:33 | Inpatient (IN) | payer MEDICARE, OTHER ==
[~2016-07-09] VITALS: Ht 182.9 cm; Wt 84.0 kg
[2016-07-09] VITALS (8 sets, daily range): BP systolic 98–123; BP diastolic 48–69; PULSE 51–77; RESP 15–20; O2SAT 93–95
--- NOTE | 2016-07-09 02:52 | ED.REPORT ---
HPI-Back Pain 40 and Over Date of Service Jul 09, 2016 ED Provider: Kale Jeong MD The patient is an 86 year old male with an extensive medical history including nephrolithiasis, DM, CHF, COPD, CKD stage IV, HTN, CAD, chronic atrial fibrillation on daily ASA, and hepatic cirrhosis with anasarca who presents to the ED reporting right flank pain onset two days ago. The pain is described as "sharp" in nature. The patient denies hematuria, fever, nausea, vomiting, diarrhea, or other symptoms. He took two Advil this evening. Nursing Notes Stated Complaint: KIDNEY PAIN Chief Complaint: Back Pain or Injury Nursing Notes Reviewed: Yes Allergies: Coded Allergies: Heparin Analogues (Verified Allergy, Severe, bleeding, 06/02/16) warfarin (Verified Allergy, Severe, bleeding, 06/02/16) dabigatran etexilate (Verified Adverse Reaction, Severe, bled into lungs, 06/02/16) Scheduled Allopurinol (Allopurinol) 100 Mg Tablet 100 MG PO QAM Arformoterol Tartrate (Brovana) 15 Mcg/2 Ml Vial.neb 15 MCG IH BID Ascorbic Acid (Vitamin C) 500 Mg Capsule.er 500 MG PO QAM Aspirin (Aspirin) 81 Mg Tablet 81 MG PO QAM Atorvastatin Calcium (Atorvastatin Calcium) 20 Mg Tablet 20 MG PO HS Brimonidine Tartrate (Brimonidine 0.2% Oph Soln) 5 Ml Drops 1 GTT LEFT_EYE TID Chlorthalidone (Chlorthalidone) 25 Mg Tablet 25 MG PO DAILY Cider Vinegar (Apple Cider Vinegar) 600 Mg Capsule 600 MG PO DAILY Cyanocobalamin (Vitamin B-12) (Vitamin B-12) 50 Mcg Tablet 100 MCG PO DAILY Dorzolamide (Dorzolamide) 10 Ml Drops 1 GTT BOTH_EYES BID Fluticasone Propionate (Flovent HFA 220 mcg) 12 Gm Aer.w.adap 1 PUFF IH BID Fosinopril Sodium (Fosinopril Sodium) 20 Mg Tablet 10 MG PO HS Latanoprost (Latanoprost) 2.5 Ml Drops 1 GTT BOTH_EYES HS Metformin ER (Metformin ER) 500 Mg Tablet 500 MG PO QAM Multivitamin (Multivitamins) 1 Each Capsule 1 EACH PO DAILY Nitroglycerin 0.2 mg/hr Patch (Nitroglycerin 0.2 mg/hr Patch) 1 Each Patch 0.2 MG TRANSDERM QPM APPLY AT 1900, OFF AT 7 AM Spironolactone (Spironolactone) 100 Mg Tablet 100 MG PO DAILY Terazosin (Terazosin) 10 Mg Capsule 10 MG PO HS Torsemide (Demadex) 20 Mg Tablet 60 MG PO BID Scheduled PRN Insulin Glargine (Lantus U100 Solostar Insulin Pen) 100 Unit/1 Ml Insuln.pen 12 UNIT SUBQ QAM PRN PRN blood sugar >150 Levalbuterol HCl (Xopenex Concentrate) 1.25 Mg/0.5 Ml Vial.neb 1.25 MG IH BID PRN PRN For Shortness of Breath General Time Seen by MD: 02:42 Chief Complaint Flank pain right Hx Obtained From: Patient Arrived By: Walk-in Sudden in Onset?: No Onset Occurred: 2 days ago Symptom Duration: Since onset Location: : Flank right Quality: Painful, Sharp Severity: Current: Moderate Severity: Maximum: Moderate Pertinent Negative: Relieved by nothing Related History: Reports: Cancer, Kidney stone Recent Healthcare: No recent doctor visit Past Medical History Past Medical History Notes: PCP: Dr. Yoo Past Medical History Cataracts/glaucoma Type 2 diabetes mellitus CHF Chronic atrial fibrillation History of subdural hematoma - divya holes by [facility], now off anticoagulation (2014) COPD BPH CKD stage IV History of skin cancer Abdominal aneurysm s/p endograft Pulmonary hypertension Hyperlipidemia Hypertension Hepatic cirrhosis with anasarca Coronary artery disease s/p 5 vessel CABG 1982 with redo bypass 1992 Ischemic Cardiomyopathy [id number] MR Emphysema Kidney stone Reports: COPD, Coronary artery disease, Diabetes mellitus, Hypertension Past Surgical History Abdominal aneurysm Popliteal Cyst removal Cataracts Reports: CABG (x2), Cholecystectomy Family History Father had CT at age 54 Mother had stroke Smoking History Former Smoker Social History Alcohol Use: "Social" Drug Use: Denies drug use Other Social History: Lives alone, Local resident Ambulatory Status Independent Review of Systems Constitutional: Denies: Fever Respiratory: Denies: Non-productive cough, Shortness of breath GI: Denies: Diarrhea, Nausea, Vomiting Male: Reports Flank pain (Right), Denies Hematuria Complete sys rev & neg: except as marked. Physical Exam Initial Vital Signs Vital Signs (First) Date Time Temp Pulse Resp B/P Pulse Ox O2 Delivery O2 Flow Rate FiO2 07/09/16 02:39 36 77 18 120/48 95 Room Air Initial VS: Reviewed, Vital signs normal Psychiatric: Mood/affect normal, Behavior normal, Normal thought content General/Constitutional: Awake, Alert Respiratory / Chest: Breath sounds NL, Breath sounds = bilat, No respiratory distress Cardiovascular: Heart rate NL, Regular rhythm, Heart sounds NL Abdomen: Soft, Non-tender Back: Inspection NL, No CVA tenderness Patient describes pain in the right flank Neurologic: Oriented X3, Speech NL Skin: Warm, Dry Diffuse ecchymosis Open sore, covered with bandage on right forearm Chronic skin changes on hands and arms Interpretation & Diagnostics URINE DIPSTICK: Bedside Urine Specific [place] * 1.010 Bedside Urine pH * 5 Bedside Urine Leukocyte Esterase * Negative Bedside Urine Nitrite * Negative Bedside Urine Protein * Negative Bedside Urine Glucose * Normal Bedside Urine Ketones * Negative Bedside Urine Urobilinogen * Normal Bedside Urine Bilirubin * Negative Bedside Urine Occult Blood * Negative Urine to Lab * Yes Lab Results Interpretation Result Diagram: 07/09/16 0340 07/09/16 0340 Test 07/09/16 03:00 07/09/16 03:40 Urine Color Yellow (YELLOW) Urine Appearance Clear (CLEAR,HAZY) Urine pH 5.5 (5.0-8.0) Urine Specific [place] 1.010 (1.003-1.035) Urine Protein Negativemg/dL (NEG,TRACE) Urine Glucose (UA) Negativemg/dL (NEGATIVE) Urine Ketones Negativemg/dL (NEGATIVE) Urine Occult Blood Negative (NEGATIVE) Urine Nitrite Negative (NEGATIVE) Urine Bilirubin Negative (NEGATIVE) Urine Urobilinogen Normalmg/dL (NORMAL) Urine Leukocyte Esterase Negative (NEGATIVE) Urine RBC 0-2/hpf (0-2) Urine WBC 0-5/hpf (0-5) Urine Epithelial Cells Occasional/hpf (NONE-MOD) Urine Crystals None seen (NONE SEEN) Urine Bacteria None/hpf (NONE-FEW) Urine Hyaline Casts None/lpf (NONE) Urine Granular Casts None seen (NONE SEEN) Urine Waxy Casts None seen (NONE SEEN) Urine Red Blood Cell Casts None seen (NONE SEEN) Urine White Blood Cell Casts None seen (NONE SEEN) Urine Mucus None seen (None Seen) Urine Trichomonas None seen (NONE SEEN) Urine Yeast None (NONE SEEN) Urine Culture Reflexed Not indicated White Blood Count 6.4th/mm3 (3.8-10.1) Red Blood Count 3.06mil/mm3 (4.40-5.80) Hemoglobin 8.3g/dL (13.8-17.2) Hematocrit 26.7% (41.0-50.0) Mean Corpuscular Volume 87.3fL (81-100) Mean Corpuscular Hemoglobin 27.1pg (27.0-35.0) Mean Corpuscular Hemoglobin Concent 31.1% (32.0-37.0) Red Cell Distribution Width 20.2% (12.3-15.4) Platelet Count 119bil/L (150-400) Neutrophils (%) (Auto) 81.7% (40-74) Lymphocytes (%) (Auto) 9.4% (14-46) Monocytes (%) (Auto) 8.3% (4-12) Eosinophils (%) (Auto) 0.3% (0-5) Basophils (%) (Auto) 0% (0-3) Sodium Level 128mEq/L (134-144) Potassium Level 3.9mEq/L (3.5-5.2) Chloride Level 84mEq/L (97-108) Carbon Dioxide Level 21mmol/L (18-29) Blood Urea Nitrogen 137mg/dL (8-27) Creatinine 3.45mg/dL (0.76-1.27) Estimat Glomerular Filtration Rate 18mL/min (>59) Glucose Level 186mg/dL (60-99) Calcium Level 8.9mg/dL (8.5-10.1) Magnesium Level 2.9mg/dL (1.6-2.6) Total Bilirubin 1.6mg/dL (0.0-1.2) Aspartate Amino Transf (AST/SGOT) 25U/L (0-50) Alanine Aminotransferase (ALT/SGPT) 16U/L (0-44) Alkaline Phosphatase 114U/L (25-160) Total Protein 6.3g/dL (6.4-8.4) Albumin 3.7g/dL (3.4-5.0) Lipase 123U/L (13-60) Lab Results Interpretation: Anemia, hyponatremia, acute on chronic kidney injury, and normal urinalysis. CT Abd / Pelvis Interpretation CT KUB: IMPRESSION: No hydronephrosis or nephrolithiasis. Normal appendix. Diverticulosis with no evidence of diverticulitis. Cirrhotic liver changes with ascites. Infrarenal abdominal aortic aneurysm with aortobiiliac stent graft. Anasarca. Report transmitted to the ED by radiologist Nolan Barone M.D. at 07/09/2016 - 4:24:51 AM PDT Study type: Abdominal CT no contrast Interpretation / Wet Read by: Interpret - Radiologist Re-Eval/Medical Decision Med Decision/Clinical Course 86-year-old male who presents with flank pain. There is no evidence of UTI or kidney stone. CT shows ascites but no specific cause of pain. His labs show an elevated lipase, a new finding for him. His BUN/creatinine are also worse. He will be admitted for further evaluation and conservative management of his pancreatitis. Source of Hx: Old records Re-Evaluation/Progress : Time of Eval: 05:35 Patient Status: Condition improved Re-Evaluation/Progress Note: Discussed with patient lab and CT results, diagnosis, and plan for admit. Patient agrees with plan for care and all questions were addressed. Consultation : Referral / Consult Name: Federico Joiner MD Consulted With: Hospitalist Call Returned at: 05:42 Machine Assistant: Agrees with eval, Agrees with plan, Accepts admit Counseled Regarding: Diagnosis, Lab results, Need for admission Discharge & Departure Impression: Primary Impression: Pancreatitis Chronicity: acute Pancreatitis type: unspecified pancreatitis type Acute pancreatitis complication: no infection or necrosis Qualified Code: K85.90 - Acute pancreatitis without necrosis or infection, unspecified Additional Impressions: Right flank pain [id number] kidney injury Disposition: ADMITTED TO HOSPITAL Discharge Condition All VS Reviewed: Yes Condition: Improved Referrals: Tamy Johnson (PCP) Khoa Attestation Portions of this note were transcribed by Giuliana Narayan. I, Dr. Jeong, personally performed the history, physical exam, and medical decision-making; I reviewed and confirmed the accuracy of the information in the transcribed note. Signed by: Khoa Martinez, 07/09/2016, 06:05 copies to: Tamy Johnson Howard L MD Jul 09, 2016 02:52 GIULIANA NARAYAN Jul 09, 2016 03:01
[2016-07-09] MEDS ORDERED: 0.9% Sodium Chloride 500 ML IV ONE (03:00)
[2016-07-09] MEDS: HYDROmorphone 0.5 mg/0.5 mL iSecure Syringe IVPUSH PRN ×2 (03:55→08:06)
[2016-07-09 04:00] LABS: BASOPHILS % (AUTO) 0 % (0-3); EOSINOPHILS % (AUTO) 0.3 % (0-5); MONOCYTES % (AUTO) 8.3 % (4-12); Mean Corpuscular Hemoglobin 27.1 pg (27.0-35.0); Mean Corpuscular Volume 87.3 fL (81-100); NEUTROPHILS % (AUTO) 81.7 % (40-74); Platelet Count 119 bil/L (150-400)
[2016-07-09 04:07] LABS: APPEARANCE,URINE CLEAR (CLEAR,HAZY); COLOR,URINE YELLOW (YELLOW); OCCULT BLOOD,URINE NEGATIVE (NEGATIVE); PH,URINE 5.5 (5.0-8.0); UROBILINOGEN,URINE NORMAL (NORMAL)
[2016-07-09 04:21] LABS: Magnesium 2.9 mg/dL (1.6-2.6)
[2016-07-09] MEDS ORDERED: Dextrose 5% 0.45% NaCl 1,000 ML IV SCH (05:54)
[2016-07-09] MEDS ORDERED: Alum-Mag Hydrox-Simeth 30 mL Suspension PO PRN (05:55)
[2016-07-09] MEDS ORDERED: Ondansetron 2 mg/mL 2 mL Inj IVPUSH PRN (05:55)
--- NOTE | 2016-07-09 07:17 | NUR ---
Arrival Patient arrived to [facility] room 1003 at 0630. A&Ox3, answering questions appropriately. Able to scoot from ER stretcher to [facility] bed. Currently filling out paperwork from ER regarding personal medical history. IV patent and IV fluids started per MD order. Oriented to room and call light. Report given to oncoming RN.
[2016-07-09] MEDS: Arformoterol 15 mCg/2 mL Inhalation Solution INHALATION SCH ×2 (08:35→20:28)
[2016-07-09] MEDS ORDERED: FLUTICASONE PROPIONATE IH SCH (08:55)
[2016-07-09] MEDS ORDERED: Glucose 40% Oral Gel 15 Gm Tube PO PRN (09:00)
[2016-07-09] MEDS ORDERED: Fluticasone 100 mCg Inhaler INHALATION SCH (09:05)
--- NOTE | 2016-07-09 09:40 | DRSVH ---
PROCEDURE: CT KUB ([id number]) INDICATIONS: right flank plain TECHNIQUE: Noncontrast 5 mm thick sections acquired from the diaphragms to the symphysis. 5 mm thick coronal an d sagittal reformats were then performed. For radiation dose reduction, the following was used: aut omated exposure control, adjustment of mA and/or kV according to patient size. COMPARISON: [facility], CT, CT CHEST ABD PELVIS WO CON, 05/08/2016, 16:40. FINDINGS: Image quality: Excellent. Lung bases: There are minimal pleural effusions with dependent atelectasis in the lungs. Heart size is enlarged. There is a small hiatal hernia. Urinary system: Kidneys demonstrate no hydronephrosis or nephrolithiasis. There is a small exophytic left renal cyst in the lower pole. Both ureters appear non-dilated throughout their expected course s without ureteral stones. Bladder wall thickness is normal; no calcified bladder stones. Other solid organs: There is lobulated contour of the liver compatible with cirrhosis. Noncontrast e valuation of the liver demonstrates no definite focal lesions. The spleen is mildly enlarged measuri ng up to 14.2 cm. The gallbladder is surgically absent. Pancreas is normal in contours. No adrenal nodules. Peritoneum and bowel: There is a moderate to large amount of ascites in abdomen and pelvis. No free air. Small and large bowel loops are normal in caliber and wall thickness. There is colonic divert iculosis without acute diverticulitis. No evidence of appendicitis. Nodes and vessels: No retroperitoneal or mesenteric adenopathy by size criteria. There is an infrar enal abdominal aortic aneurysm redemonstrated status post placement of an aortobiiliac endovascular s tent graft. The grafts appear unchanged in position without evidence of migration. The aneurysm sac measures up to 6.7 cm in anteroposterior dimension and up to 7.8 cm in transverse dimension, increase d in size compared to the prior study, most recently measuring up to 6.4 x 7.4 cm at a comparable lev el. Abdominal wall: No ventral hernias. Pelvis: No inguinal hernias. There are enlarged inguinal lymph nodes bilaterally, measuring up to 1 .6 cm on the left. Bones: No suspicious bony lesions. No vertebral body compression fractures. IMPRESSION: 1. No evidence of nephrolithiasis or hydronephrosis. 2. Nodular cirrhotic liver with splenomegaly and ascites suggesting portal hypertension. 3. Infrarenal abdominal aortic aneurysm status post endovascular placement of an aortobiiliac stent graft redemonstrated. There is enlargement of the aneurysm sac compared to the prior study most like ly reflecting an endoleak. Further evaluation be obtained with a CT angiogram. Dictated by: Jose Alfredo Mcpherson M.D. on 07/09/2016 at 9:07 Approved by: Jose Alfredo Mcpherson M.D. on 07/09/2016 at 9:39
[2016-07-09] MEDS: Dorzolamide 2% 10 mL Ophthalmic Solution BOTH_EYES SCH ×2 (09:52→21:53)
[2016-07-09] MEDS: Fluticasone 250 mCg Inhaler INHALATION SCH ×2 (09:53→21:53)
[2016-07-09] MEDS: Ascorbic Acid 500 mg Tablet PO SCH (09:59)
[2016-07-09] MEDS: Insulin GLARgine 100 Unit/mL Syringe SUBQ SCH (10:03)
[2016-07-09] MEDS: MeTOProlol XL 25 mg ER24 Tablet PO SCH (10:13)
[2016-07-09] MEDS ORDERED: Albuterol 1.25 mg/3 mL Inhalation Solution NEB PRN (10:15)
--- NOTE | 2016-07-09 10:53 | NUR ---
Palliative Care Palliative Care received verbal order from Dr Manzanares 07/09/16 to assist with goals of care. Patient with complex medical issues arrived to [facility] 07/09/16. Palliative Care saw patient several times during admission in 04/2016. Elijah Jones (brother) [phone] Palliative Care to follow. Elizabeth Duggan
[2016-07-09] MEDS: Insulin LISPRO 300 Unit/3 mL Inj SUBQ SCH ×3 (12:43→21:52)
--- NOTE | 2016-07-09 13:17 | DRSVH ---
PROCEDURE: X-RAY RIGHT RIBS INCLUDEING PA CHEST, MINUMUM THREE VIEWS ([id number]) INDICATIONS: pain, fall TECHNIQUE: 3 views of the right ribs were acquired, along with a single view chest. COMPARISON: [facility], CR, XR CHEST 1VW (PORTABLE), 05/04/2016, 18:26. [facility], CR, XR CHEST 1VW (PORTABLE), 03/27/2016, 4:35. [facility], CR, XR CHEST 1VW (PORT ABLE), 05/22/2016, 11:05. FINDINGS: Surgical changes and devices: Sternotomy and CPT. Lungs and pleura: There is persistent masslike opacity in the right upper lobe. No pleural effusions or pneumothorax. Lungs are clear. Mediastinum: Mediastinal contours appear normal. Heart size is normal. Extensive atherosclerosis. Bones and chest wall: There are multiple old right fractures. Overlying soft tissues appear unremark able. IMPRESSION: 1. Persistent masslike opacity in the right upper lobe. Differential includes pneumonia versus neopl asm. Continued radiographic surveillance to resolution is recommended. 2. No displaced right rib fractures. Dictated by: Suhail CHAVARRIA Interpreted: Sylvain Chi MD on 07/09/2016 at 13:14 Transcribed by: LEATHA on 07/09/2016 at 13:16 Approved by: Sylvain Chi M.D. on 07/09/2016 at 13:25
--- NOTE | 2016-07-09 13:31 | PCM.CONPAL ---
Date of Service Jul 09, 2016 Date of Hospital Admission: Jul 09, 2016 at 06:21 Date of Palliative Consult: Jul 09, 2016 Requesting Provider: Elsa Manzanares DO Reason Palliative Care Consult: Pain, Goals of Care Discussion Reason for Consultation Also request from Dr. Hammond Hospital Unit @time of consult: Orthopedic/Surgical Care Palliative Care Recommendation Summary of palliative recommendations: Before pt was seen, chart was reviewed and conference held with Dr. David Manzanares and Dr. Hammond to review issues. -Symptom management (Pain/other) Pain- bit colicy but worrisome with ? of dissection/ leaking AAA. I personally do not think he is a surgical candidate but he wishes that to be decided by a vascular surgeon Michaelasarca-due to RHF and CRI-getting worse-The question of hemodialysis needs to be postponed due to the possibility of AAA leaking. 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 Manzanares who will pursue the above. If he is not a surgical candidate then he should move to comfort care based on futility. If it is found that the AAA is not active -then further discussion around the ? of HD could be made. This would be only temporizing until one of his other issues took over GOALS OF CARE-big issue. He mandates that he have his independence but with his severity of illness with comorbidities and increasing needs/intermittent delirium etc he is looking at needing increasing support and caregiving. He has a hard time seeing this but states he will--and indicates cut his throat-if that were to happen. -DPOA/Advanced Directives/POLSTsee last consult-- Elijah is first and his son Apolinar is 2nd for DPOAHC. -Family/emotional support-primarily from his brother and SAVANA -? pulm mass-repeat CXR pending. AAA- enlarging DM-some concern with nearly over control with last A1C in office was nearly normal Problems: End of Life Preferences DNR/DNI/no FT Goals of Care see above Disposition TBD Resuscitation Status Resuscitation Status: DNR/DNI:Do Not Resuscitate/Intubate Limited Interventions: Medications and IV Fluid POLST Updates/Changes Artificially Admin Nutrition: No Artifical Nutrition by Tube POLST Discussed with: Patient . Pain: Moderate Symptom management: Drowsiness/sleepiness, Pain Pt History History of Present Illness 86 yo patient followed by Tamy BLEVINS with hx of recurrent hospitalizations for CHF-Mar,, end of April and now with increasing edema, weakness and falls. He developed severe spasms of R flank pain starting about 3- 5 days ago and came in due to it's severity. He states this started out of the blue. It started before he had his fall that has caused a significant ecchymosis on his L face. Made worse with moving or eating. He denies nausea or vomiting. Despite this he was able to get out in his scooter with his brother and go to [facility] about 2 days ago. He does not acknowledge much for limitations at home or much for progression of disease despite very severe COPD/emphysema with cor pulmonale and R HF with progressive renal insuff made worse with pushing diuretics-now with a Cr. 3.45 and BUN 137. He has known cirrhosis with evidence of portal HTN with splenomegaly and on past imaging a ? of a spiculated mass in R lung field that was not seen on recent CT--unclear if it went high enough. He was evaluated in the ER for his severe R flank pain with note of an elevated lipase but normal pancreas on imaging.It was noted that his AAA had increased in size by 1 cm and with that an his pain has raised the question of leaking AAA. He had been angry and refused dialysis offer in recent past but now wants more info to consider this. He is willing to go through surgery for his AAA if necessary. I told him I was not sure he would survive that but he stated he would consider it if his vascular surg thought it reasonable. When asked if on re-evaluation he has lung CA--(nothing seen on CT but did not go to upper lungs and ? raised on imaging in April/May)-he states he would not want to pursue HD or surgery. With all these ? and responses he seems to be able to weigh the pro/cons of these health care decisions. He has had periods when he just falls asleep in conversation. His bother is not available by phone. The pt continues to make his own decisions. He has listed his brother as DPOAHC during last hospitalization but only when he is incapacitated.He has requested DNR status but wants aggressive intervention otherwise. Past Medical History Significant PMH Noted: Past Medical History Past Medical History Notes: PCP: Tamy BLEVINS Past Medical History Cataracts/glaucoma Type 2 diabetes mellitus CHF Chronic atrial fibrillation History of subdural hematoma - divya holes by [facility], now off anticoagulation (2014) COPD-severe emphysema with corpulmonale BPH CKD stage IV History of skin cancer Abdominal aneurysm s/p endograft Pulmonary hypertension Hyperlipidemia Hypertension Hepatic cirrhosis with anasarca and evidence of portal HTN with splenomegaly Coronary artery disease s/p 5 vessel CABG 1982 with redo bypass 1992 Ischemic Cardiomyopathy [id number]-[id number] MR Kidney stone Past Surgical History Abdominal aneurysm Popliteal Cyst removal Cataracts Reports: CABG (x2), Cholecystectomy Family History Father had MN at age 54 Mother had stroke Smoking History Former Smoker hx of ETOH past unclear how much Social History 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 Living Situation: continues to live alone with help from brother and SAVANA Spiritual Support Spiritual Support Believes in God and feels he is the only one to decide when he dies Responsive Patient Symptoms Pain (maximium): Severe *Requires 72 Hour Followup (episodes of writhing in pain and clutching his R flank, then fine. Able to sit up side of bed of own accord--with a bit of swearing) Tiredness/Fatigue: Moderate Nausea: Mild Depression: None (denies) Drowsiness/Sleepiness: Moderate Anorexia: Mild Shortness of Breath: Mild Delirium noted during last hospitalization when he became agitated Palliative Performance Scale PPS Patient Status: Current PPS Ambulation: Reduced PPS Activity: Unable to do most activity PPS Self-Care: Occasional assistance necessary PPS Intake: Normal or reduced PPS Conscious Level: Full or confusion Performance Scale: 70% Allergy Allergies Reviewed: Yes Medications Current Medications: Current Medications Hydromorphone HCl 0.5 mg 0.5 mg Q15MIN PRN IVPUSH Last administered on 08:06; Admin Dose 0.5 MG; Start 07/09/16 at 03:35; Stop 07/09/16 at 09:05; Status DC Dextrose/Sodium Chloride 1,000 ml @ 100 mls/hr Q10H IV Last administered on 07/09 06:41; Admin Dose 100 MLS/HR; Start 07/09/16 at 05:54; Stop 07/09/16 at 08: 54; Status DC Al Hydrox/Mg Hydrox/Simethicone 30 ml Q6 PRN PO; Start 07/09/16 at 05:55 Ondansetron HCl Dose range: 4 mg to 8 mg Q4H PRN IVPUSH; Start 07/09/16 at 05:55 Acetaminophen 975 mg Q6H PRN PO; Start 07/09/16 at 05:55 Allopurinol 100 mg DAILY PO Last administered on 07/09/16 09:59; Admin Dose 100 MG; Start 07/09/16 at 08:35 Arformoterol Tartrate 15 mcg BID INHALATION; Start 07/09/16 at 08:35 Aspirin 81 mg DAILY PO Last administered on 07/09/16 09:59; Admin Dose 81 MG; Start 07/09/16 at 08:35 Atorvastatin Calcium 20 mg HS PO; Start 07/09/16 at 21:00 Chlorthalidone 25 mg DAILY PO; Start 07/09/16 at 08:35; Stop 07/09/16 at 09:05; Status DC Dorzolamide HCl 1 drp BID BOTH_EYES Last administered on 07/09/16 09:52; Admin Dose 1 DRP; Start 07/09/16 at 08:35 Latanoprost 1 drop HS BOTH_EYES; Start 07/09/16 at 21:00 Nitroglycerin 1 patch DAILY TOPICAL Last administered on 07/09/16 09:51; Admin Dose 1 PATCH; Start 07/09/16 at 08:35 Torsemide 60 mg BID PO Last administered on 07/09/16 09:50; Admin Dose 60 MG; Start 07/09/16 at 08:35; Stop 07/09/16 at 12:27; Status DC Ascorbic Acid 500 mg DAILY PO Last administered on 07/09/16 09:59; Admin Dose 500 MG; Start 07/09/16 at 08:30 Cyanocobalamin 100 mcg DAILY PO Last administered on 07/09/16 09:58; Admin Dose 100 MCG; Start 07/09/16 at 09:11 Non-Formulary Medication 1 puff BID IH; Start 07/09/16 at 08:55; Status UNV Non-Formulary Medication 10 mg HS PO; Start 07/09/16 at 21:00; Stop 07/09/16 at 21 :00; Status DC Multivitamins/ Minerals Therapeutic 1 tablet DAILY PO Last administered on 09:59; Admin Dose 1 TABLET; Start 07/09/16 at 09:04 Insulin Glargine 12 unit DAILY SUBQ Last administered on 07/09/16 10:03; Admin Dose 12 UNIT; Start 07/09/16 at 08:55 Insulin Human Lispro Nutritional Dose to be given pr... [facility] SUBQ Last administered on 07/09/16 12:43; Admin Dose 1 UNIT; Start 07/09/16 at 12:00 Morphine Sulfate 2-4 mg Q4H PRN IVPUSH Last administered on 07/09/16 10:18; Admin Dose 4 MG; Start 07/09/16 at 09:05 Fluticasone Propionate 1 puff BID INHALATION; Start 07/09/16 at 09:05; Status Cancel Metoprolol Succinate 25 mg DAILY PO Last administered on 07/09/16 10:13; Admin Dose 25 MG; Start 07/09/16 at 09:10 Non-Formulary Medication 1 Q24H XX; Start 07/09/16 at 20:30 Albuterol 1.25 mg Q4H PRN NEB; Start 07/09/16 at 10:15 Fluticasone Propionate 1 puff BID INHALATION Last administered on 07/09/16 09:53 ; Admin Dose 1 PUFF; Start 07/09/16 at 09:11 Furosemide 80 mg BID IVPUSH; Start 07/09/16 at 20:30 Scheduled Allopurinol (Allopurinol) 100 Mg Tablet 100 MG PO QAM Arformoterol Tartrate (Brovana) 15 Mcg/2 Ml Vial.neb 15 MCG IH BID Ascorbic Acid (Vitamin C) 500 Mg Capsule.er 500 MG PO QAM Aspirin (Aspirin) 81 Mg Tablet 81 MG PO QAM Atorvastatin Calcium (Atorvastatin Calcium) 20 Mg Tablet 20 MG PO HS Brimonidine Tartrate (Brimonidine 0.2% Oph Soln) 5 Ml Drops 1 GTT LEFT_EYE TID Chlorthalidone (Chlorthalidone) 25 Mg Tablet 25 MG PO DAILY Cider Vinegar (Apple Cider Vinegar) 600 Mg Capsule 600 MG PO DAILY Cyanocobalamin (Vitamin B-12) (Vitamin B-12) 50 Mcg Tablet 100 MCG PO DAILY Dorzolamide (Dorzolamide) 10 Ml Drops 1 GTT BOTH_EYES BID Fluticasone Propionate (Flovent HFA 220 mcg) 12 Gm Aer.w.adap 1 PUFF IH BID Fosinopril Sodium (Fosinopril Sodium) 20 Mg Tablet 10 MG PO HS Latanoprost (Latanoprost) 2.5 Ml Drops 1 GTT BOTH_EYES HS Metformin ER (Metformin ER) 500 Mg Tablet 500 MG PO QAM Multivitamin (Multivitamins) 1 Each Capsule 1 EACH PO DAILY Nitroglycerin 0.2 mg/hr Patch (Nitroglycerin 0.2 mg/hr Patch) 1 Each Patch 0.2 MG TRANSDERM QPM APPLY AT 1900, OFF AT 7 AM Spironolactone (Spironolactone) 100 Mg Tablet 100 MG PO DAILY Terazosin (Terazosin) 10 Mg Capsule 10 MG PO HS Torsemide (Demadex) 20 Mg Tablet 60 MG PO BID Scheduled PRN Insulin Glargine (Lantus U100 Solostar Insulin Pen) 100 Unit/1 Ml Insuln.pen 12 UNIT SUBQ QAM PRN PRN blood sugar >150 Levalbuterol HCl (Xopenex Concentrate) 1.25 Mg/0.5 Ml Vial.neb 1.25 MG IH BID PRN PRN For Shortness of Breath Objective Findings Exam Vital Sign - Last Date Time Temp Pulse Resp B/P Pulse Ox O2 Delivery O2 Flow Rate FiO2 07/09/16 06:38 36.6 70 20 123/65 95 Room Air Intake and Output 07/08/16 07/08/16 07/09/16 Cumulative From/Thru 15:00 23:00 07:00 07/09/16 02:39 - 07/09/16 06:58 Intake Total 1000 ml 1000 ml Output Total 225 ml 225 ml Balance 775 ml 775 ml Intake Oral 0 ml 0 ml IV Total 1000 ml 1000 ml Output Urine Total 225 ml 225 ml # Voids 1 1 # Bowel Movements 0 0 General: Alert, Oriented, Person, Place, Moderate distress (sporatic/colicky like pain) HEENT: EOMI, Scleral Anicteric, Mucous Membr Moist/[place] Heart: Regular Rate/Rhythm Lungs: Clear to Percussion Abdomen: Bowel Tones x4, Distended Neuro: Arousable (but falls asleep in conversation), Cranial Nerve 3-12 Intact Extremities: Edema (4+), Anasarca Skin: Other (, tense atrophic skin LE with pitting edema) Lab/Diagnostics Lab and Imaging results reviewed in detail in EMR. EGFR 18 with CR 3.45 and BUN [address] AAA increased in size now max jessica at 7.4 cm Patient/Family Conference Members Present Family Members Present Patient, left on phone for his Brother and tried calling his [facility]- Medical Team Members Present? [facility] Discussion/Goals of Care Discussion FAMILY UNDERSTANDING OF DISEASE: He knows his multiple issues of RHF, cirrhosis and severe lung and kidney ds. Despite this has fair denial of the severity of his situation. He verbalizes wanting aggressive txmt but short of CPR/vent. DISEASE PROGRESSION/EVIDENCE OF DECLINE: Based on his massive edema and challenges with low BP, unclear if this patient can really figure out the severity of his diseases. SYMPTOM BURDEN: profound with massive edema and ascites GOALS: He wants to get back to his independence HOPES/WORRIES: Time spent Total time 80 minutes; >50% face to face with patient and/or family, providing counselling regarding plans and recommendations, and in care coordination with his/her medical teams. This included reviewing case iwth Dr. Manzanares and Manish and CT scan with radiology and interview with pt--still awaiting call from his brother. I also spent an additional [ ] minutes counseling for advanced care planning with the patient/the patients family/the surrogate decision maker. copies to: Terra Banks MD; Tamy Johnson Deborah A MD Jul 09, 2016 13:31
--- NOTE | 2016-07-09 13:50 | NUR ---
Admit Note Pt admitted to room 1003. Pt reports 10/10 R flank pain given PRN Dialaudid and Morphine which was helpful. Pt is very weak, able to stand but is not steady on his feet. Bed alarm in place for safety. Pt has pitting edema all the way to his abdomen. Abd is distended and firm but not tender. Bladder scan was done and it was 242. Plan of care reviewed with pt, enc to use call light for all needs and transfers out of bed. Cont to monitor.
--- NOTE | 2016-07-09 15:09 | PCM.CHPMED ---
Subjective Date of Service: Jul 09, 2016 Primary Physician: Admitting Physician: Federico Joiner MD Primary Care Physician: Tamy Johnson Attending Physician: Federico Joiner MD Chief Complaint: Chief Complaint: Nephrology Service [facility] Arana PGY2 and attending [employer] Dr. Hammond Reason for Consultation: Acute on chronic kidney injury History of Present Illness: Mr. Msaon is a medically complex 86yom who MHx includes end-staged COPD, DM II , and significant organic heart disease along with CKD staged IV and liver cirrhosis presented overnight with 2days of intermitted sharp Right flank pain. Labs in the ED were significant for elevated BUN/Cr 137/3.45 (baseline Cr 2.8- 3.2) and slightly elevated lipase 123. Subsequent CT-KUB did NOT demonstrate any acute findings, normal appearing Pancrease, and non-dilated ureter, no hydronephrosis, or nephrolithiasis. Imaging does showed large ascetic fluids however. Patient was admitted for possible pancreatitis and further work-up of acute on chronic kidney injury. On interview, patient stated significant sharp flank pain that started 2-3night ago, exacerbated by motion. No postprandial association, nor nausea, vomiting. Appetite, oral intake and diet has not changed. No weight change or worsening of SOB. Does states significant b/l leg edema and distended belly. No fevers or chills. Patient reports fall about 2 wks ago. He was evaluated for head trauma in the ED and was discharged home same day. And prior, he was admitted 2x for CHF exacerbation, requiring aggressive diureses and paracentesis within 3mo. Review of Systems: A comprehensive review of systems was conducted with the patient and found to be negative except as above in the History of Present Illness. 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 HTN Dyslipidemia CAD s/p 5vessel CABG PVD Ischemic cardiomyopathy Biventricular Heart failure, EF 45-50% on echo 05/05/2016 Pulmonary hypertension [id number] MR Chronic Afib not anticoag due to hx of subdural hematoma Cardiorenal syndrome CKD staged IV Hypertensive nephrosclerosis BPH Liver Cirrhosis with anasarca and splenic platelet sequestration Hx tobacco abuse Severe COPD Abdominal aneurysm s/p endograft Cataracts/glaucoma History of subdural hematoma - divya holes by [facility], now off anticoagulation (2014) History of skin cancer Bedside Blood Glucose: 190 Surgical History Cholecystectomy CABG with redo Cataracts Home Medications Obtain from last ED visit Allopurinol (Allopurinol) 100 Mg Tablet 100 MG PO QAM Arformoterol Tartrate (Brovana) 15 Mcg/2 Ml Vial.neb 15 MCG IH BID Ascorbic Acid (Vitamin C) 500 Mg Capsule.er 500 MG PO QAM Aspirin (Aspirin) 81 Mg Tablet 81 MG PO QAM Atorvastatin Calcium (Atorvastatin Calcium) 20 Mg Tablet 20 MG PO HS Brimonidine Tartrate (Brimonidine 0.2% Oph Soln) 5 Ml Drops 1 GTT LEFT_EYE TID Chlorthalidone (Chlorthalidone) 25 Mg Tablet 25 MG PO DAILY Cider Vinegar (Apple Cider Vinegar) 600 Mg Capsule 600 MG PO DAILY Cyanocobalamin (Vitamin B-12) (Vitamin B-12) 50 Mcg Tablet 100 MCG PO DAILY Dorzolamide (Dorzolamide) 10 Ml Drops 1 GTT BOTH_EYES BID Fluticasone Propionate (Flovent HFA 220 mcg) 12 Gm Aer.w.adap 1 PUFF IH BID Fosinopril Sodium (Fosinopril Sodium) 20 Mg Tablet 10 MG PO HS Latanoprost (Latanoprost) 2.5 Ml Drops 1 GTT BOTH_EYES HS Metformin ER (Metformin ER) 500 Mg Tablet 500 MG PO QAM Multivitamin (Multivitamins) 1 Each Capsule 1 EACH PO DAILY Nitroglycerin 0.2 mg/hr Patch (Nitroglycerin 0.2 mg/hr Patch) 1 Each Patch 0.2 MG TRANSDERM QPM APPLY AT 1900, OFF AT 7 AM Spironolactone (Spironolactone) 100 Mg Tablet 100 MG PO DAILY Terazosin (Terazosin) 10 Mg Capsule 10 MG PO HS Torsemide (Demadex) 20 Mg Tablet 60 MG PO BID Allergies: Coded Allergies: Heparin Analogues (Verified Allergy, Severe, bleeding, 06/02/16) warfarin (Verified Allergy, Severe, bleeding, 06/02/16) dabigatran etexilate (Verified Adverse Reaction, Severe, bled into lungs, 06/02/16) Family History Family History Father had ID at age 54 Mother had stroke Social History Occupation: retiredHx Alcohol Use: NoHx Substance Use: NoHx Tobacco Use: Yes Smoking Status: Former Smoker Exam Vital Signs Vital Sign - Last Date Time Temp Pulse Resp B/P Pulse Ox O2 Delivery O2 Flow Rate FiO2 07/09/16 06:38 36.6 70 20 123/65 95 Room Air Intake and Output 07/08/16 07/08/16 07/09/16 Cumulative From/Thru 15:00 23:00 07:00 07/09/16 02:39 - 07/09/16 06:58 Intake Total 1000 ml 1000 ml Output Total 225 ml 225 ml Balance 775 ml 775 ml Intake Oral 0 ml 0 ml IV Total 1000 ml 1000 ml Output Urine Total 225 ml 225 ml # Voids 1 1 # Bowel Movements 0 0 General: Alert, Oriented X3 Eyes: PERRLA, EOMI, Scleral Anicteric Mouth: Mucous Membr Moist/[place] Chest & Lungs: Clear to auscultation & percussion, No adventitious breath sounds Cardiovascular: Murmur (2+ systolic ), Other (JVD, irregular irregular) Abdomen: Distended, Other (rigid, shifting dullness. ) Genitourinary: Alatorre Absent Extremities: Edema (b/l +3 pitting edema to waist, weeping legs. ) Neurological: Grossly Neurologically Intact, Cranial Nerves 2-12 Intact Lab and Diagnostics Result Diagram: 07/09/16 0340 07/09/16 0340 X-Rays, CTs and MRIs PROCEDURE: CT KUB ([id number]) IMPRESSION: 1. No evidence of nephrolithiasis or hydronephrosis. 2. Nodular cirrhotic liver with splenomegaly and ascites suggesting portal hypertension. 3. Infrarenal abdominal aortic aneurysm status post endovascular placement of an aortobiiliac stent graft redemonstrated. There is enlargement of the aneurysm sac compared to the prior study most likely reflecting an endoleak. Further evaluation be obtained with a CT angiogram. Dictated by: Jose Alfredo Mcpherson M.D. on 07/09/2016 at 9:07 Approved by: Jose Alfredo Mcpherson M.D. on 07/09/2016 at 9:39 ADDENDUM: Findings were discussed with Dr. Manzanares on 07/09/16 at 10:15 AM. Dictated by: Jose Alfredo Mcpherson M.D. on 07/09/2016 at 12:11 Approved by: Jose Alfredo Mcpherson M.D. on 07/09/2016 at 12:11 PROCEDURE: X-RAY RIGHT RIBS INCLUDEING PA CHEST, MINUMUM THREE VIEWS ([id number]) IMPRESSION: 1. Persistent masslike opacity in the right upper lobe. Differential includes pneumonia versus neoplasm. Continued radiographic surveillance to resolution is recommended. 2. No displaced right rib fractures. Dictated by: Suhail Cavanaugh RRA Interpreted: Sylvain Chi MD on 07/09/2016 at 13:14 Additional Diagnostics: Bladder scan (07/09/2016) 255cc residual volume Assessment & Plan Assessment Mr. Mason is a medically complex 86yom who MHx includes end-staged COPD, DM II , and significant organic heart disease along with CKD staged IV and liver cirrhosis admitted for possible pancreatitis and workup of acute on chronic kidney injury Patient baseline Cr 2.8-3.2 increased to 3.5 in addition to oliguric 0.09cc/kg/ hr over 12hrs defines WENDY. 2nd cause likely increased intraabdominal pressure from ascites. Despite chlorthalidone, spironolactone, and large does of torsemide, gut absorption may have been compromised due to edema. Moreover, patient was placed on fosinopril 10mg daily. CT-KUB did not suggest any renally related structural abnormalities. Nor did blader scan showed significant residual volume. Problem List #WENDY on stage 4 CKD Multifactorial including CRS, increased intraabdominal pressure, possible HRS. #Liver cirrhosis with ascites #Cardiorenal syndrome #Chronic Afib #HFrEF #Insulin dependent DM II PLAN #US abd with plan for paracentesis and albumin replacement #IV lasix 80mg BID, d/c torsemide #Palliative care consult for goals of care, including possible dialysis #Avoid nephrotoxic meds including maylin-I and renally cleared medication. IE metformin. # Check PVR. Patient was seen and examined. Case discussed with resident. Agreed as above. Thank you for the consultation. We will monitor along with you. Hermelinda Hammond MD. Pg [phone]. Problems: Carl Arana DO Jul 09, 2016 15:09 Terra Banks MD Jul 10, 2016 11:42
--- NOTE | 2016-07-09 15:15 | NUR ---
Social work Note - Brief Note Jerry Jones is a 86yr old admitted for R Flank pain, WENDY, Pancreatitis. EMR reviewed: Pt has Medicare and [employer] for life, his PCP is listed as Tamy Johnson. STEAM BONE PRESS TENDER attempted on two occasions today to complete assessment. He states that he is tired and does not want to answer questions. He is irritated, denies pain and can not identify concerns. He asked STEAM BONE PRESS TENDER to leave the room. STEAM BONE PRESS TENDER discussed with Attending MD who is considering transfer to a higher level of care. STEAM BONE PRESS TENDER will attempt assessment tomorrow. KHLOE Quinones
[2016-07-09] MEDS ORDERED: Lactulose 20 Gm/30 mL 30 mL Syrup PO ONE (16:25)
--- NOTE | 2016-07-09 16:45 | DRSVH ---
PROCEDURE: US ABDOMEN, LIMITED ([id number]) INDICATIONS: eval ascitic fluid status for paracentesis TECHNIQUE: Real-time focused scanning was performed of the abdomen, with image documentation. COMPARISON: [facility], , ABDOMEN LTD, 06/04/2016, 14:00. FINDINGS: Moderate ascites visualized within all 4 quadrants of the abdomen. IMPRESSION: Moderate ascites. Volume sufficient for diagnostic and/or therapeutic paracentesis. Dictated by: Suhail CHAVARRIA Interpreted: Sylvain Chi MD on 07/09/2016 at 16:44 Transcribed by: LEATHA on 07/09/2016 at 16:44 Approved by: Sylvain Chi M.D. on 07/09/2016 at 16:56
--- NOTE | 2016-07-09 18:08 | DRSVH ---
PROCEDURE: CT CHEST WITHOUT CONTRAST ([id number]) INDICATIONS: 86 year-old male with persistent lateral right midlung opacity on chest radiograph. TECHNIQUE: Noncontrast 5 mm thick sections acquired from the pulmonary apices to the posterior costophrenic angl es. 7 mm thick coronal and sagittal MIP reformats were then acquired. For radiation dose reduction, the following was used: automated exposure control, adjustment of mA and/or kV according to patient size. COMPARISON: [facility], CT, CHEST/ABDOMEN WITH CONTRAST, 01/30/2015, 9:56. [facility], CT , THORAX WITH CONTRAST, 07/04/2015, 9:12. [facility], CT, CT CHEST ABD PELVIS WO CON, 04/10, 16:40. [facility], CR, XR RIBS INC PA CXR MIN 3VW RT, 07/09/2016, 10:54. [facility], CR, XR CHEST 1VW (PORTABLE), 05/22/2016, 11:05. [facility], CR, XR CHEST 1VW (PORTABLE), 05/04/2016, 18:26. FINDINGS: Image quality: Excellent. Lungs and pleura: There is apical predominant centrilobular emphysema. No acute air space opacities. There is persistent localized airspace opacity within the lateral right midlung, with internal air bronchograms. Smaller 1.8 cm posterior right lower lobe subpleural opacity also persists. Small right and trace left dependent pleural effusions persist. No pneumothorax. Central and peripheral airways are patent and normal in caliber. Mediastinum: Cardiomegaly is unchanged, status post coronary artery bypass grafting. No pericardial effusion. Enlarged pre-carinal and subcarinal mediastinal lymph nodes are not significantly changed since 2014. No new mediastinal adenopathy by size criteria. Thoracic aorta and central pulmonary art eries are normal in size. Esophagus is normal in caliber. No hiatal hernia. Bones and chest wall: Multiple nonacute left rib fractures are again noted. No suspicious bony lesio ns. No vertebral body compression fractures. No axillary or supraclavicular adenopathy by size crit eria. Thyroid gland is normal in size. Abdomen: There is persistent upper abdominal ascites. IMPRESSION: 1. Localized airspace opacity within the inferior right upper lobe abutting the minor and major fissu res persists since 2015, therefore suspicious for neoplasm rather than pneumonia. A smaller similar-a ppearing lesion within the superior segment of the left lower lobe is also unchanged. If clinically f easible and desired, consider CT guided lung biopsy for further evaluation. 2. Background apical predominant centrilobular emphysema. 3. Cardiomegaly as before, as well as small right and trace left bibasilar mobile pleural effusions. 4. Persistent incompletely visualized abdominal ascites is of uncertain etiology. Dictated by: John Spann M.D. on 07/09/2016 at 17:54 Approved by: John Spann M.D. on 07/09/2016 at 18:06
--- NOTE | 2016-07-09 19:21 | NUR ---
ammonia, pain pt. ammonia elevated; lactulose 20 gm given po this afternoon. Pt. A&O, forgetful at times. C/o pain and moaning with activity but refusing prn pain medication at this time.
[2016-07-09] MEDS ORDERED: FOSINOPRIL SODIUM 10 MG PO SCH (21:00)
[2016-07-09] MEDS: Furosemide 10 mg/mL 10 mL Inj IVPUSH SCH (21:48)
--- NOTE | 2016-07-09 22:31 | PCM.HPMED ---
Subjective Date of Service Jul 09, 2016 Primary Provider: Admitting Physician: Federico Joiner MD Primary Care Physician: Tamy Johnson Attending Physician: Federico Joiner MD Admit Status: From the Emergency Department Chief Complaint: R flank pain History of Present Illness: Patient is a pleasant 86-year-old white male with systolic heart failure, atrial ablation, chronic kidney disease, hypertension, type II diabetes, COPD, CAD status post CABG, status post a AAA repair, and liver cirrhosis is presenting to the ER with right flank pain patient has had multiple hospitalizations due to CHF exacerbation cardiorenal syndrome in the past he was had a recent hospitalization on June 02 and was discharged on June 09. It appears that the last admission was for acute on chronic anasarca and portal hypertension. Patient states that he had his first round of paracentesis at the time. He also states that now edema building up in his abdominal area, groin area and both legs. However he does not complain of any abdominal pain or pressure sensation or respiratory distress outside of his norm, he complains of right flank pain. He also tells me that he fell a couple days ago at home when home care health were trying to teach him how to walk with a cane but he is adamant that his right flank pain is not because of that incident even though they both started on the same date. He does not seem to recall his doctor's names very well, kept calling his primary care nurse practitioner Dr. ivory, also called Dr. cope, dr ivory. He recalls meeting with Dr. Keisha Sprague during his previous hospitalization and states that he did not want to undergo dialysis. He did meet with his marketing secretary Dr. cope couple of weeks ago and currently says that he is considering dialysis. At one point he stated that Dr. Noel was his PCP.. I have reviewed his primary care provider's notes regarding hospice and dialysis options, and back and asked patient about this and he claimed no knowledge of hospice discussion. In the ER patient had a lipase level of 123 normal is 13-60. Abdominal CT KUB showed no stones, positive for diverticulosis abdominal aortic aneurysm aortoiliac stent graft, anasarca, cirrhotic liver with ascites. However on up- to-date from the radiology, I was told that patient has a proximal endoleak from the aneurysm and the aneurysmal sac has grown considerably since his last scan. His hemoglobin was 8.3 BUN was 137 creatinine was 3.45 glucose was 186 bili was elevated at 1.6 sodium was low at 128. Off note an echocardiogram that was performed in 05/05/16 showed 45-50% ejection fraction increased right ventricular dilation increases and severe pulmonary hypertension with pressures of 66 mmHg. Review of Systems: Gen.: No weight gain patient has been having fevers and malaise Eyes: no visual disturbances or blurring vision HEENT: No nose/throat drainage, no pain in ears or throat, no hearing loss Lymph: No lymph nodes noted Cardiac: No chest pain, orthopnea, PND, palpitations , pedal edema or +yspnea on exertion Pulmonary: Denies wheezing or bringing up of sputum , worsening dyspnea and cough, left-sided chest pain GI: No anorexia nausea vomiting blood or black in the stool : no dysuria hematuria urinary frequency or decrease in urine output Musculoskeletal: Complains of right flank pain Neuro: No syncope, seizures no loss of consciousness no new focal weakness, numbness or tingling Psychiatric: New new anxiety insomnia or depression Endocrine: No new heat or cold intolerances polyuria or polydipsia Hematology: No lymphadenopathy, he notes easy bruising skin: No new rashes, stasis dermatitis Allergies Coded Allergies: Heparin Analogues (Verified Allergy, Severe, bleeding, 06/02/16) warfarin (Verified Allergy, Severe, bleeding, 06/02/16) dabigatran etexilate (Verified Adverse Reaction, Severe, bled into lungs, 06/02/16) Home Medications All her medications are obtained and reviewed. See medication reconciliation PMH Diabetes mellitus, right-sided heart failure, ischemic cardiomyopathy , COPD, CKkd stage IV, hypertension, CAD status post 5 vessel CABG, A. fib, hepatic cirrhosis with anasarca, subdural hematoma, benign prostatic hypertrophy, AAA repaired, [id number] MR, emphysema Surgical History Remarkable for cataracts, AAA status post skin graft,, cholecystectomy Family History Remarkable for mother who with stroke Dad who with heart attack Social History Hx Alcohol Use: Yes (was a social drinker he quit in 1992) Hx Substance Use: No Hx Tobacco Use: Yes Smoking Status: Former Smoker Living Arrangement: Alone Exam Vital Signs Vital Sign - Last Date Time Temp Pulse Resp B/P Pulse Ox O2 Delivery O2 Flow Rate FiO2 07/09/16 06:38 36.6 70 20 123/65 95 Room Air Intake and Output 07/08/16 07/08/16 07/09/16 Cumulative From/Thru 15:00 23:00 07:00 07/09/16 02:39 - 07/09/16 06:58 Intake Total 1000 ml 1000 ml Output Total 225 ml 225 ml Balance 775 ml 775 ml Intake Oral 0 ml 0 ml IV Total 1000 ml 1000 ml Output Urine Total 225 ml 225 ml # Voids 1 1 # Bowel Movements 0 0 Exam General: Sitting up in bed some what uncomfortable male HEENT: NCAT, Eyes: [place]bitt conjunctivae. No ptosis, PERRL Neck: No masses, trachea midline, no thyromegaly Lungs: CTA with normal respiratory effort, no crackles or wheezes CV: Irregular, no murmurs/rubs/gallops, normal PMI GI: Large , tense round abdomen. Diminished abdominal sounds MSK: No digital cyanosis Skin: Warm and dry. Facial bruising, bruises on both arms Psych: A&O X3, with appropriate affect Neuro: Patient seems to be struggling with names, he appears to be repeating to himself what He will be doing next few minutes Lab and Diagnostics Result Diagram: 07/09/16 0340 07/09/16 0340 X-Rays, CTs and MRIs IMPRESSION: 1. Localized airspace opacity within the inferior right upper lobe abutting the minor and major fissures persists since 2015, therefore suspicious for neoplasm rather than pneumonia. A smaller similar-appearing lesion within the superior segment of the left lower lobe is also unchanged. If clinically feasible and desired, consider CT guided lung biopsy for further evaluation. 2. Background apical predominant centrilobular emphysema. 3. Cardiomegaly as before, as well as small right and trace left bibasilar mobile pleural effusions. 4. Persistent incompletely visualized abdominal ascites is of uncertain etiology. Dictated by: John Spann M.D. on 07/09/2016 at 17:54 Approved by: John Spann M.D. on 07/09/2016 at 18:06 PROCEDURE: US ABDOMEN, LIMITED ([id number]) INDICATIONS: eval ascitic fluid status for paracentesis IMPRESSION: Moderate ascites. Volume sufficient for diagnostic and/or therapeutic paracentesis. Dictated by: Suhail Cavanaugh [facility] Interpreted: Sylvain Chi MD on 07/09/2016 at 16:44 Transcribed by: LEATHA on 07/09/2016 at 16:44 Approved by: Sylvain Chi M.D. on 07/09/2016 at 16:56 PROCEDURE: CT KUB ([id number]) INDICATIONS: right flank plain IMPRESSION: 1. No evidence of nephrolithiasis or hydronephrosis. 2. Nodular cirrhotic liver with splenomegaly and ascites suggesting portal hypertension. 3. Infrarenal abdominal aortic aneurysm status post endovascular placement of an aortobiiliac stent graft redemonstrated. There is enlargement of the aneurysm sac compared to the prior study most likely reflecting an endoleak. Further evaluation be obtained with a CT angiogram. Dictated by: Jose Alfredo Mcpherson M.D. on 07/09/2016 at 9:07 Approved by: Jose Alfredo Mcpherson M.D. on 07/09/2016 at 9:39 ADDENDUM: Findings were discussed with Dr. Manzanares on 07/09/16 at 10:15 AM. Dictated by: Jose Alfredo Mcpherson M.D. on 07/09/2016 at 12:11 Approved by: Jose Alfredo Mcpherson M.D. on 07/09/2016 at 12:11 Assessment & Plan 86-year-old male with chronic right-sided heart failure, chronic atrial fibrillation, pulmonary hypertension and coronary artery disease, anasarca is admitted for acute right flank pain of unknown etiology Assessment #1 right flank and thoracic pain: This could be secondary to AAA graft endoleak, versus lung cancer number vs falls/rib fractures versus anasarca/ascites -- Pain control with morphine IV -- X-ray of ribs, CT of chest ( prior imaging showed suspicion for lung malignancy, CT of chest will help clarify) -- Contact patient's surgeon Dr. Refugio campbell at [facility], send them the CT abd for comparison: This has been done and this vascular surgeon feels the endoleak has been stable, aneurysm size only increased by 3-4 mm and he does not feel the pain from this would refer to right flank and right thoracic. He sees no need for repair of this at this time. We appreciated his time and recommendations -- Ordered paracentesis via IR on 07/10/77 #2 stage IV chronic kidney disease: He has several reasons why his kidneys would fail, namely heart failure, hepatorenal syndrome, diabetes, hypertension -- Nephrology is consulted as they have known the patient -- They have seen the patient, considered getting him started on dialysis. No one is available to place a tunneled catheter on and the weekend. Patient will have to wait till Wednesday to get the catheter put in. -- Patient currently agrees for dialysis. -- We will continue to monitor to see if we need to keep him over the weekend for dialysis: We appreciate nephrology recommendations #3 concern for lung mass: -- CT of chest is ordered as above #4 goals of care: Patient is a very complex patient with several serious comorbidities. He is a current DNR/DNI -- We consulted palliative care to help patient understands goals of care. We appreciate the recommendations very much -- Because of patient's mental status did try contacting the family, no one was available #5 altered mental status: Likely due to hepatic encephalopathy Ammonia levels were ordered and came back elevated -- Lactulose by mouth 20 mg 3 times a day #6 hyponatremia: Likely due to liver disease -- Nephrology is following #7 anemia of chronic disease: -- We will continue to monitor daily labs, we will discuss anaresap with nephrology #8 atrial fibrillation:, Chronic -- Patient is not currently anticoagulated because of reading risk and SDH -- Continue to monitor -- Give The patient current rate control home medications #9 hypertension, chronic -- We will hold nephrotoxic home medications #10 hyperlipidemia, chronic -- Continue medications #11 diabetes, chronic: Patient has insulin 12 units every morning if blood glucose greater than 150 -- Patient's home insulin as ordered along with low sliding scale Disposition: Patient cannot obtain a CTA study the endoleak as recommended by radiology due to his poor renal function, his vascular surgeon for does not feel this is necessary. Patient may improve with therapeutic paracentesis. Palliative care is discussing his goals of care in the light of his newly found lung mass/malignancy, worsening endoleak, liver failure with anasarca. Nephrology is considering dialysis, but this may not happen until Wednesday. Pain Evaluation: Adequate Pain Control VTE Prophylaxis Indicated: Contraindicated Resuscitation Status: DNR/DNI:Do Not Resuscitate/Intubate Time spent 50 minutes Elsa Manzanares DO Jul 09, 2016 07:51
[2016-07-10] VITALS (13 sets, daily range): BP systolic 94–115; BP diastolic 45–60; PULSE 68–78; RESP 12–24; O2SAT 92–96
--- NOTE | 2016-07-10 03:52 | NUR ---
Pain/ Activity Forgetful. Pt. is moaning, however denies need for pain meds except earlier in shift when Tylenol PO given. Will continue to monitor.
[2016-07-10 05:42] LABS: BASOPHILS % (AUTO) 0.1 % (0-3); EOSINOPHILS % (AUTO) 0.9 % (0-5); MONOCYTES % (AUTO) 6.8 % (4-12); Mean Corpuscular Hemoglobin 26.6 pg (27.0-35.0); Mean Corpuscular Volume 88.4 fL (81-100); Platelet Count 115 bil/L (150-400)
[2016-07-10 06:07] LABS: INR 1.25 ratio
[2016-07-10] MEDS: Insulin LISPRO 300 Unit/3 mL Inj SUBQ SCH ×4 (08:00→21:53)
[2016-07-10] MEDS: Fluticasone 250 mCg Inhaler INHALATION SCH ×3 (08:30→20:30)
[2016-07-10] MEDS: Arformoterol 15 mCg/2 mL Inhalation Solution INHALATION SCH ×2 (08:30→20:12)
[2016-07-10] MEDS: Dorzolamide 2% 10 mL Ophthalmic Solution BOTH_EYES SCH ×2 (08:57→21:49)
[2016-07-10] MEDS: Furosemide 10 mg/mL 10 mL Inj IVPUSH SCH (08:57)
[2016-07-10] MEDS: MeTOProlol XL 25 mg ER24 Tablet PO SCH (08:58)
[2016-07-10] MEDS: Ascorbic Acid 500 mg Tablet PO SCH (08:59)
[2016-07-10] MEDS: Insulin GLARgine 100 Unit/mL Syringe SUBQ SCH (09:00)
--- NOTE | 2016-07-10 10:40 | NUR ---
Case Management: IMM given and explained to pt. Nayana NEWBERRYRN
[2016-07-10] MEDS ORDERED: Potassium Chloride 20 mEq SR Tablet PO ONE (11:10)
--- NOTE | 2016-07-10 11:28 | PCM.PNNEPH ---
Carl Arana H DO 07/10/16 1128: Subjective Date of Service Jul 10, 2016 Subjective Mr. Mason is a medically complex 86yom who MHx includes end-staged COPD, DM II , and significant organic heart disease along with CKD staged IV and liver cirrhosis initially complaints of sharp flank pain, admitted for possible pancreatitis and hemodialyis. No overnight events, though lung Ct-scan showed possible neoplasm in the right upper fissure. Patient have communicated with Palliative care that he would not want dialysis should he have cancer. Patient denies any new complaints today. Slight rise in the Cr 3.62. Urine output maintaining ~.3cc/kg/hr. No fever, chills, no abdominal tenderness Right back pain still present, feels like muscle spasm. Exam Vital Signs Vital Sign - Last Date Time Temp Pulse Resp B/P Pulse Ox O2 Delivery O2 Flow Rate FiO2 07/10/16 04:22 36.0 77 18 104/57 92 Room Air Intake and Output 07/09/16 07/09/16 07/10/16 Cumulative From/Thru 15:00 23:00 07:00 07/09/16 02:39 - 07/10/16 06:48 Intake Total 476 ml 480 ml 200 ml 2156 ml Output Total 625 ml 700 ml 1550 ml Balance 476 ml -145 ml -500 ml 606 ml Intake Oral 480 ml 200 ml 680 ml IV Total 476 ml 1476 ml Output Urine Total 625 ml 700 ml 1550 ml # Voids 1 # Bowel Movements 0 Exam General: Alert, Oriented X3 Eyes: PERRLA, EOMI, Scleral Anicteric Mouth: Mucous Membr Moist/[place] Chest & Lungs: Clear to auscultation & percussion, crackles in the lower bases Cardiovascular: Murmur (2+ systolic ), Other (JVD, irregular irregular) Abdomen: Distended, Other (rigid, shifting dullness. ) Genitourinary: Alatorre Absent, negative for costophenic angle tenderness. Extremities: Edema (b/l +3 pitting edema to waist, weeping legs. ) Neurological: Grossly Neurologically Intact, Cranial Nerves 2-12 Intact Lab and Diagnostics Result Diagram: 07/10/16 0455 07/10/16 045 X-Rays, CTs and MRIs IMPRESSION: 1. Localized airspace opacity within the inferior right upper lobe abutting the minor and major fissures persists since 2015, therefore suspicious for neoplasm rather than pneumonia. A smaller similar-appearing lesion within the superior segment of the left lower lobe is also unchanged. If clinically feasible and desired, consider CT guided lung biopsy for further evaluation. 2. Background apical predominant centrilobular emphysema. 3. Cardiomegaly as before, as well as small right and trace left bibasilar mobile pleural effusions. 4. Persistent incompletely visualized abdominal ascites is of uncertain etiology. Dictated by: John Spann M.D. on 07/09/2016 at 17:54 Approved by: John Spann M.D. on 07/09/2016 at 18:06 PROCEDURE: US ABDOMEN, LIMITED ([id number]) INDICATIONS: eval ascitic fluid status for paracentesis IMPRESSION: Moderate ascites. Volume sufficient for diagnostic and/or therapeutic paracentesis. Dictated by: Suhail Cavanaugh [facility] Interpreted: Sylvain Chi MD on 07/09/2016 at 16:44 Transcribed by: LEATHA on 07/09/2016 at 16:44 Approved by: Sylvain Chi M.D. on 07/09/2016 at 16:56 PROCEDURE: CT KUB ([id number]) INDICATIONS: right flank plain IMPRESSION: 1. No evidence of nephrolithiasis or hydronephrosis. 2. Nodular cirrhotic liver with splenomegaly and ascites suggesting portal hypertension. 3. Infrarenal abdominal aortic aneurysm status post endovascular placement of an aortobiiliac stent graft redemonstrated. There is enlargement of the aneurysm sac compared to the prior study most likely reflecting an endoleak. Further evaluation be obtained with a CT angiogram. Dictated by: Jose Alfredo Mcpherson M.D. on 07/09/2016 at 9:07 Approved by: Jose Alfredo Mcpherson M.D. on 07/09/2016 at 9:39 ADDENDUM: Findings were discussed with Dr. Manzanares on 07/09/16 at 10:15 AM. Dictated by: Jose Alfredo Mcpherson M.D. on 07/09/2016 at 12:11 Approved by: Jose Alfredo Mcpherson M.D. on 07/09/2016 at 12:11 Plan Impression Mr. Mason is a medically complex 86yom who MHx includes end-staged COPD, DM II , and significant organic heart disease along with CKD staged IV and liver cirrhosis initially complaints of sharp flank pain, admitted for possible pancreatitis and hemodialyis. Acute on chronic kidney injuries likely due to increase intraabominal pressure. Patient has tremendous pitting edema and ascitic fluids. Oral diuretics at home likely ineffective 2nd to gut edema. Therapeutic paracentesis along with IV diuretics will help. However, patient has likely Stage V renal failure. He would need to commit to dialysis should he wish aggressive treatment. No need for emergent dialysis at this moment as his electrolytes are stable and responding to IV lasix. Problem List #Acute on chronic kidney injury #CKD stage 4/5 #Liver cirrhosis with ascites #Cardiorenal syndrome #Chronic Afib #HFrEF #Insulin dependent DM II Plan: #Paracentesis with albumin replacement per protocol #Cont IV lasix #Heating pad Terra Banks MD 07/10/16 1448: Exam Lab and Diagnostics Result Diagram: 07/10/16 0455 07/10/16 0455 Plan Impression Patient was seen and examined. Case discussed with resident, primary team and palliative care team. He is not able to make a decision regarding renal replacement therapy as well as a hospice care. He would like to discuss with his brother who can assist in the decision-making process. Dx: ESRD now declared. Plan: Supportive treatment for now. IV lasix 100 mg Q 12hr. Metolazone 5 mg PO daily. KCL 40 meq PO x 1. Hold ASA for possible tunneled cath placement on Wednesday. Fluid restriction 1 L per day, 2g Na per day. Hermelinda Hammond MD Pg [phone] Carl Arana H DO Jul 10, 2016 11:28 Terra Banks MD Jul 10, 2016 14:48
--- NOTE | 2016-07-10 13:12 | PCM.PNMED ---
Subjective Date of Service Jul 10, 2016 Subjective The patient is in the examined. He did not want to talk to licensed clinical social worker yesterday , still says that he is wanting to be very independent at home . He does not like nursing homes and he does not to move to the senior living. Palliative care is working with family to understand goals of care. Patient understands he is going to go for a paracentesis and consents to the procedure . He says his right flank pain is gone, resolved after heating pads were given this a.m. no other concerns Exam Vital Signs Vital Sign - Last Date Time Temp Pulse Resp B/P Pulse Ox O2 Delivery O2 Flow Rate FiO2 07/10/16 04:22 36.0 77 18 104/57 92 Room Air Intake and Output 07/09/16 07/09/16 07/10/16 Cumulative From/Thru 15:00 23:00 07:00 07/09/16 02:39 - 07/10/16 06:48 Intake Total 476 ml 480 ml 200 ml 2156 ml Output Total 625 ml 700 ml 1550 ml Balance 476 ml -145 ml -500 ml 606 ml Intake Oral 480 ml 200 ml 680 ml IV Total 476 ml 1476 ml Output Urine Total 625 ml 700 ml 1550 ml # Voids 1 # Bowel Movements 0 Exam General: NAD, appears some what confused fiercely independent HEENT: bruising over the face Lungs: Clear to auscultation anteriorly negative for wheezing Heart: RRR, no s3/s4 sounds neck: reduced ROM neuro: some what oriented but unable to make decisions psych: neg for anxiety and agitation Extremities: Remarkable for 1+ pitting edema with dark hemosiderosis, Skin: Warm and dry, bruising over both arms left-sided facial bruising Abdomen: Swollen, distended abdomen, hypoactive bowel sounds IVs and Medications Medications Reviewed: Medications were reviewed in detail Lab and Diagnostics Result Diagram: 07/10/1645407/10/16454 X-Rays, CTs and MRIs IMPRESSION: 1. Localized airspace opacity within the inferior right upper lobe abutting the minor and major fissures persists since 2014, therefore suspicious for neoplasm rather than pneumonia. A smaller similar-appearing lesion within the superior segment of the left lower lobe is also unchanged. If clinically feasible and desired, consider CT guided lung biopsy for further evaluation. 2. Background apical predominant centrilobular emphysema. 3. Cardiomegaly as before, as well as small right and trace left bibasilar mobile pleural effusions. 4. Persistent incompletely visualized abdominal ascites is of uncertain etiology. Dictated by: John Spann M.D. on 07/09/2016 at 17:54 Approved by: John Spann M.D. on 07/09/2016 at 18:06 PROCEDURE: US ABDOMEN, LIMITED ([id number]) INDICATIONS: eval ascitic fluid status for paracentesis IMPRESSION: Moderate ascites. Volume sufficient for diagnostic and/or therapeutic paracentesis. Dictated by: Suhail Cavanaugh [facility] Interpreted: Sylvain Chi MD on 07/09/2016 at 16:44 Transcribed by: LEATHA on 07/09/2016 at 16:44 Approved by: Sylvain Chi M.D. on 07/09/2016 at 16:56 PROCEDURE: CT KUB ([id number]) INDICATIONS: right flank plain IMPRESSION: 1. No evidence of nephrolithiasis or hydronephrosis. 2. Nodular cirrhotic liver with splenomegaly and ascites suggesting portal hypertension. 3. Infrarenal abdominal aortic aneurysm status post endovascular placement of an aortobiiliac stent graft redemonstrated. There is enlargement of the aneurysm sac compared to the prior study most likely reflecting an endoleak. Further evaluation be obtained with a CT angiogram. Dictated by: Jose Alfredo Mcpherson M.D. on 07/09/2016 at 9:07 Approved by: Jose Alfredo Mcpherson M.D. on 07/09/2016 at 9:39 ADDENDUM: Findings were discussed with Dr. Manzanares on 07/09/16 at 10:15 AM. Dictated by: Jose Alfredo Mcpherson M.D. on 07/09/2016 at 12:11 Approved by: Jose Alfredo Mcpherson M.D. on 07/09/2016 at 12:11 Assessment & Plan 86-year-old male with chronic right-sided heart failure, chronic atrial fibrillation, pulmonary hypertension and coronary artery disease, anasarca is admitted for acute right flank pain of unknown etiology Assessment #1 right flank and thoracic pain: Ruled out AAA graft endoleak, rib fractures. Pain may be coming from a sites or a lung mass -- Pain control with morphine IV -- X-ray of ribs, CT of chest ( prior imaging showed suspicion for lung malignancy, CT of chest showed concern for lung mass on 07/09 -- Contact patient's surgeon Dr. Refugio campbell at [facility], send them the CT abd for comparison: This has been done and this vascular surgeon feels the endoleak has been stable, aneurysm size only increased by 3-4 mm and he does not feel the pain from this would refer to right flank and right thoracic. He sees no need for repair of this at this time. We appreciated his time and recommendations -- Ordered paracentesis via IR on 07/10/77: patient consented, labs are added for cell cnt etc. #2 stage IV chronic kidney disease: He has several reasons why his kidneys would fail, namely heart failure, hepatorenal syndrome, diabetes, hypertension -- Nephrology is consulted as they have known the patient -- They have seen the patient, considered getting him started on dialysis. No one is available to place a tunneled catheter on and the weekend. Patient will have to wait till Wednesday to get the catheter put in. -- Patient currently agrees for dialysis. He also seems to be changing mind often however. -- We will continue to monitor to see if we need to keep him over the weekend for dialysis: We appreciate nephrology recommendations -- Patient has been having several readmitted to hospital, he is felt to that he has to make a decision on dialysis versus hospice care in order to limit his readmissions. -- We will appreciate support and recommendations from nephrology and palliative care #3 concern for lung mass: -- CT of chest is ordered as above: Findings are remarkable for a lung mass #4 goals of care: Patient is a very complex patient with several serious comorbidities. He is a current DNR/DNI -- We consulted palliative care to help patient understands goals of care. We appreciate the recommendations very much -- Palliative care is in contact family -- pt refuses to go to a senior living. #5 hepatic encephalopathy -- Ammonia levels were ordered and came back elevated -- Lactulose by mouth 20 mg 3 times a day #6 hyponatremia: Likely due to liver disease -- Nephrology is following -- stable at 128 -- 2 g Sodium restriction, 1000 cc per day fluid restriction #7 anemia of chronic disease: -- We will continue to monitor daily labs, we will discuss anaresap with nephrology -- Patient is given 1 unit of blood on 07/10 #8 atrial fibrillation:, Chronic -- Patient is not currently anticoagulated because of reading risk and SDH -- Continue to monitor -- Give The patient current rate control home medications #9 hypertension, chronic -- We will hold nephrotoxic home medications #10 hyperlipidemia, chronic -- Continue medications #11 diabetes, chronic: Patient has insulin 12 units every morning if blood glucose greater than 150 -- Patient's home insulin as ordered along with low sliding scale Disposition: Patient cannot obtain a CTA study the endoleak as recommended by radiology due to his poor renal function, his vascular surgeon for does not feel this is necessary. Patient may improve with therapeutic paracentesis. Palliative care is discussing his goals of care in the light of his newly found lung mass/malignancy, worsening endoleak, liver failure with anasarca. Nephrology is considering dialysis, but this may not happen until Wednesday. Resuscitation Status: DNR/DNI:Do Not Resuscitate/Intubate Limited Interventions: Medications and IV Fluid Time spent 25 min Elsa Manzanares DO Jul 10, 2016 13:12
--- NOTE | 2016-07-10 15:18 | NUR ---
Palliative care note D/A: Met with pt and his brother Elijah Jones ) and Elijah's . Present also were Dr. Hammond (nephrology) and Dr. Manzanares ( hospitalist) and Drs. Osborn and Jorge. Discussed at length pt current functioning and medical condition. Dr. Hammond very clear that pt has this weekend to think about/discuss dialysis but will need to make a decision as to if deciding to pursue dialysis or not. If not-will need hospice services. Pt able to describe reasonably well his understanding about how dialysis works. Dr. Hammond notes that if pt decided to pursue dialysis-that she would anticipate that he would need to try it about a month or two to ascertain potential response. She is hopeful that it may assist him in bettering his quality of life but will not prolong his life significantly. Bro and rishi indicate that they feel that pt may wish to try dialysis. It is stressed with him that he can stop at any point, even if he is having a positive response. They indicate to pt strongly that they feel he needs SNF, especially during dialysis trial period. They indicate that he has been barely functioning at home and feel that at least initially, dialysis be too difficult on his own. Discuss other option of hospice and briefly how that might work at home or SNF or other facility. Case discussed with juan ramon Rose. She will talk to pt about SNF after she received SNF order. This worker takes in SNF list to family to discuss and notes the SNF's that are closest to dialysis. This worker also notes that if pt decides to go for dialysis-will talk to Keila GLEASONW or Janee CAMACHO about pt and ask for them to touch base closely with him and assist with hospice arrangements or other arrangements as needed. P: Palliative care to follow. Louann Pelaez [facility], [facility]
[2016-07-10] MEDS ORDERED: Albumin 25% 50 ML IV ONE (15:50)
--- NOTE | 2016-07-10 15:57 | DRSVH ---
PROCEDURE: US GUIDED PARACENTESIS, PRIMARY ([id number]) INDICATIONS: ASCITES TECHNIQUE: The indications, alternatives, benefits, risks, and complications of the procedure were explained to the patient. Written informed consent was obtained and placed in the chart. The abdomen and pelvis were examined sonographically, and an appropriate site was chosen for paracentesis. The skin was pre pared and draped in the usual sterile fashion, and 1% lidocaine was infiltrated from the skin down th rough the peritoneal surface. A 19-gauge catheter-covered needle was then introduced into the perito marjan space, the catheter was advanced and the needle was withdrawn, and thereafter peritoneal fluid w as withdrawn. The catheter was then removed and a dressing was applied. The fluid was discarded if the clinician did not order diagnostic testing of the fluid. The attending physician was present, an d personally performed the procedure. COMPARISON: None. FINDINGS: Access site: Midline pelvis. Needle: One-Step centesis catheter with introducer needle. Fluid volume and description: 5.5 L of slightly bloody tinged peritoneal fluid. Fluid sent for diagnostic testing: Fluid sent for cytology, multiple chemistry panels and therapeuti c drainage. Medications: 1% lidocaine for local anaesthesia. Complications: None. IMPRESSION: Successful ultrasound-guided paracentesis. Dictated by: Suhail CHAVARRIA Interpreted: Yuri Harman MD on 07/10/2016 at 15:56 Transcribed by: SCOTT on 07/10/2016 at 15:56 Approved by: Yuri Harman M.D. on 07/10/2016 at 16:35
--- NOTE | 2016-07-10 16:07 | NUR ---
Paracentesis Pt left floor at ap prox 1415 to [facility] via w/c. Report given to Anais. Pt arrived back to [facility] rm 1003 via w/c 5600mls removed at this time. Awaiting albumin from Pharm. Rec'd report from Rita in [facility].
[2016-07-10] MEDS: 0.9% Sodium Chloride 250 ML IV SCH (16:15)
--- NOTE | 2016-07-10 16:15 | NUR ---
[facility]/Procedure/Recovery/Transfer Received in [facility] about 1430. VSS without postural drop. Draining by 1448. VSS. Denied pain. Dozing on and off. 5400ml obtained and about 100ml was taken for samples by US. Catheter removed at 1535. Pressure held for 10min. No bleeding or hematoma. Bandaid applied. No postural drop after procedure. Denied dizziness. Taking Ice chips well. Yeni CORTEZ updated. Transported to [facility] via w/c in no distress about 1600. Albumin delivered to [facility] given to DANA Jaime and bedside check done. Floor doing pre and post wt. and US updated on total fluid removal.
--- NOTE | 2016-07-10 16:49 | PCM.PALLBR ---
Palliative Care Recommendation 86-year-old gentleman with multiple medical problems including advanced liver disease/cirrhosis, severe COPD and cor pulmonale, acute on chronic renal failure , etc. Palliative medicine consult to assist in determination of goals of care. The patient has been inconsistent/ambivalent about his wishes for further care. In particular, his renal failure has progressed to the point where he has worsening azotemia, and cannot be adequately diuresed, and so needs to make a decision about progressing to dialysis. Summary of palliative recommendations: Ultimately, after multiple conversations today with patient, his caregivers and family members, he seemed to be solidifying a decision to trial dialysis (with tunneled catheter placement to be carried out on Wednesday, July 13) and then to go to an SNF for at least several weeks while initiating dialysis. He would then see how he felt after several weeks of dialysis- if he was feeling considerably better and had strengthened adequately, he might be able to go home with home health support. If he was feeling better but found that he liked the SNF, he might stay there. If however, he felt dialysis was either not helping or he did not like it, then decision could be made to either go home with hospice or have hospice/comfort care at the SNF. His brother and [id number] thought that this was a good plan as well. -Symptom management (Pain/other) Pain- improved with heating pad. Dr. Hammond observed that this could be muscle spasms related to his uremia and so might improve upon initiation of dialysis. 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 We did talk at length about his medium and fdc prognosis and he understands that as a consequence of his multiple medical conditions that his lifespan is probably measured in months -Family/emotional support-primarily from his brother and SAVANA Problems: End of Life Preferences DNR/DNI/no FT Goals of Care see above Disposition TBD Resuscitation Status Resuscitation Status: DNR/DNI:Do Not Resuscitate/Intubate Limited Interventions: Medications and IV Fluid POLST Updates/Changes Artificially Admin Nutrition: No Artifical Nutrition by Tube POLST Discussed with: Patient . Symptom management: Pain, Delirium Total time 95 minutes; >50% face to face with patient and family, providing counselling regarding plans and recommendations, and in care coordination with his medical teams. Of the above total time, 60 minutes counseling for advanced care planning with the patient and his family as well as the rest of the care team copies to: Tamy Johnson Palliative Brief Note Date of Service Jul 10, 2016 . Returned to reevaluate patient. Prior to visiting, reviewed his updated records in the EMR in detail, reviewed his status with prior palliative care providers, and also spoke with his hospitalist and with his manager security. 2 visits today- in the morning spoke with the patient and examined him. Spoke with his brother by phone and then returned in the afternoon for meeting with the rest of the care team and the patient's brother Elijah and [id number] Mei. Patient was awake and alert but is clearly encephalopathic, forgetful, perseverates on inconsequential matters, and I do not think is able to very well process complex issues. His physical exam was essentially stable. Vital signs noted. Skin shows multiple ecchymoses. Head and neck exam without acute focal findings. Lungs clear, heart sounds distant and regular, abdomen rounded/distended but nontender. Complained of severe, colicky right flank pain, each episode lasting seconds, occasionally triggered by movement in bed, and ultimately much relieved with simple heating pad to the area. Extremities with persistent severe edema. Labs and imaging reviewed in detail. Spoke at great length with his other care team members including his manager security and hospitalist, and then returned later and spoke further with the patient and his family members. Patient has been fiercely independent and has consistently refused to consider SNF placement. He has been very inconsistent in expressing his wish is for dialysis. He kept trying to put off any sort of decision for dialysis. Explained multiple times to him, finally I think with some understanding, that it was time to make a decision and that he should not leave the hospital without making a decision to either proceed with hemodialysis will proceed to comfort/hospice care. His family members weighed in- they live in [place] and are unable to continue to rescue him when he deteriorates at home. (Note that he has had 6 admissions in the last 3-1/2 months and clearly is not a good candidate for independent life any longer.) With them at bedside, we talked again about his options for treatment. Dr. Hammond of nephrology also explained need for dialysis again very carefully with him on several occasions today. Dilshad Osborn MD Jul 10, 2016 16:49
[2016-07-10 17:09] LABS: BFWBC 100 /mm3; MONOCYTES,BODY FLUID 26 %; OTHER CELLS,BODY FLUID 18
[2016-07-10] MEDS ORDERED: Albumin 25% 25 GM in IV Premix 1 EACH IV SCH (18:05)
[2016-07-10] MEDS ORDERED: Furosemide 10 mg/mL 10 mL Inj IVPUSH SCH (20:30)
[2016-07-10] MEDS: FUROSEMIDE IVPUSH SCH (21:42)
[2016-07-10] MEDS: DEXTROSE 5% IVPUSH SCH (21:42)
--- NOTE | 2016-07-11 | NUR ---
Blood admin Pt. had 1 unit of PRBCs given. Pt. tolerated it well with no signs or symptoms of an adverse reaction. Vital signs stable. Will continue to monitor.
[2016-07-11 04:30] VITALS: BP 95/50; PULSE 85; RESP 20; O2SAT 93
[2016-07-11] MEDS: MeTOProlol XL 25 mg ER24 Tablet PO SCH (08:30)
[2016-07-11] MEDS: Insulin LISPRO 300 Unit/3 mL Inj SUBQ SCH ×4 (08:59→21:56)
[2016-07-11] MEDS: FUROSEMIDE IVPUSH SCH ×2 (08:59→21:38)
[2016-07-11] MEDS: DEXTROSE 5% IVPUSH SCH ×2 (08:59→21:38)
[2016-07-11] MEDS: Dorzolamide 2% 10 mL Ophthalmic Solution BOTH_EYES SCH ×2 (09:00→21:42)
[2016-07-11] MEDS: Insulin GLARgine 100 Unit/mL Syringe SUBQ SCH (09:00)
[2016-07-11] MEDS: Fluticasone 250 mCg Inhaler INHALATION SCH ×2 (09:01→20:30)
[2016-07-11] MEDS: Ascorbic Acid 500 mg Tablet PO SCH (09:02)
[2016-07-11] MEDS: Arformoterol 15 mCg/2 mL Inhalation Solution INHALATION SCH ×2 (09:04→20:31)
[2016-07-11 09:05] VITALS: PULSE 70; RESP 18; O2SAT 95
--- NOTE | 2016-07-11 11:22 | NUR ---
Social Work: Continued Discharge Planning D: EMR reviewed. SW met with pt and family at bedside per pt's request. Pt would like to go to SNF while on dialysis. placed order for SW consult - SNF. SW provided pt with choice list and pt selected [facility] and [facility]. SW made referral to [facility] and [facility] and gave access. SW will continue to follow. A: Pt for whom a SNF has been deemed medically necessary. P: Pt likely to discharge to SNF with dialysis. GENARO placed T/C and spoke with Sonia from [facility] who stated that [facility] can take pt on dialysis and will review to determine if they can accept pt. GENARO placed T/C and spoke with Anais at [facility] who will verify if they can take pt on dialysis. SW will continue to follow. JANICE Arias Addendum: 07/11/16 at 1607 by CLAUDIA PENA SW attempted to conduct assessment after first refusal on 07/09. Pt asked SW to return to complete assessment later. SW returned to complete assessment and pt was in the bathroom. SW will complete assessment on 07/12 when pt is available.
--- NOTE | 2016-07-11 13:28 | PCM.PNNEPH ---
Subjective Date of Service Jul 11, 2016 Subjective s/p abdominal paracentesis, 5.5L fluid removed. BP on the low side. Pt and family decided to proceed with hemodialysis. Exam Vital Signs Vital Sign - Last Date Time Temp Pulse Resp B/P Pulse Ox O2 Delivery O2 Flow Rate FiO2 07/11/16 09:05 70 18 95 Room Air 07/11/16 04:30 36.1 95/50 Intake and Output 07/10/16 07/10/16 07/11/16 Cumulative From/Thru 15:00 23:00 07:00 07/09/16 02:39 - 07/11/16 06:51 Intake Total 770 ml 1576 ml 4502 ml Output Total 5825 ml 1750 ml 9125 ml Balance -5055 ml -174 ml -4623 ml Intake Oral 702 ml 650 ml 2032 ml IV Total 68 ml 626 ml 2170 ml Packed Cells 300 ml 300 ml Output Urine Total 325 ml 1750 ml 3625 ml Other 5500 ml 5500 ml # Voids 7 8 # Bowel Movements 2 2 Exam General: Alert, Oriented X3 Eyes: PERRLA, EOMI, Scleral Anicteric Mouth: Mucous Membr Moist/[place] Chest & Lungs: Clear to auscultation & percussion, crackles in the lower bases Cardiovascular: Murmur 2+ systolic, JVD, irregular irregular Abdomen: mild distension, nontender, hypoactive BS. Extremities: Edema b/l +3 pitting edema to waist, weeping legs. Neurological: Grossly Neurologically Intact, Cranial Nerves 2-12 Intact Lab and Diagnostics Result Diagram: 07/11/1644407/11/16444 X-Rays, CTs and MRIs IMPRESSION: 1. Localized airspace opacity within the inferior right upper lobe abutting the minor and major fissures persists since 2014, therefore suspicious for neoplasm rather than pneumonia. A smaller similar-appearing lesion within the superior segment of the left lower lobe is also unchanged. If clinically feasible and desired, consider CT guided lung biopsy for further evaluation. 2. Background apical predominant centrilobular emphysema. 3. Cardiomegaly as before, as well as small right and trace left bibasilar mobile pleural effusions. 4. Persistent incompletely visualized abdominal ascites is of uncertain etiology. Dictated by: John Spann M.D. on 07/09/2016 at 17:54 Approved by: John Spann M.D. on 07/09/2016 at 18:06 PROCEDURE: US ABDOMEN, LIMITED ([id number]) INDICATIONS: eval ascitic fluid status for paracentesis IMPRESSION: Moderate ascites. Volume sufficient for diagnostic and/or therapeutic paracentesis. Dictated by: Suhail Cavanaugh RR Interpreted: Sylvain Chi MD on 07/09/2016 at 16:44 Transcribed by: LEATHA on 07/09/2016 at 16:44 Approved by: Sylvain Chi M.D. on 07/09/2016 at 16:56 PROCEDURE: CT KUB ([id number]) INDICATIONS: right flank plain IMPRESSION: 1. No evidence of nephrolithiasis or hydronephrosis. 2. Nodular cirrhotic liver with splenomegaly and ascites suggesting portal hypertension. 3. Infrarenal abdominal aortic aneurysm status post endovascular placement of an aortobiiliac stent graft redemonstrated. There is enlargement of the aneurysm sac compared to the prior study most likely reflecting an endoleak. Further evaluation be obtained with a CT angiogram. Dictated by: Jose Alfredo Mcpherson M.D. on 07/09/2016 at 9:07 Approved by: Jose Alfredo Mcpherson M.D. on 07/09/2016 at 9:39 ADDENDUM: Findings were discussed with Dr. Manzanares on 07/09/16 at 10:15 AM. Dictated by: Jose Alfredo Mcpherson M.D. on 07/09/2016 at 12:11 Approved by: Jose Alfredo Mcpherson M.D. on 07/09/2016 at 12:11 Plan Impression 1. ESRD now declared. 2. Liver cirrhosis with ascites s/p paracentesis. 3. Cardiorenal syndrome 4. Chronic Afib 5. HFrEF 6. DM with diabetic nephropathy. Plan: Supportive treatment for now. IV lasix 100 mg Q 12hr. Metolazone 5 mg PO daily. Decrease metoprolol dosage. Add midodrine 5 mg TID. Hold ASA for tunneled cath placement on Wednesday. Fluid restriction 1 L per day, 2g Na per day. Terra Banks MD Jul 11, 2016 13:28
[2016-07-11] MEDS: 0.9% Sodium Chloride 250 ML IV SCH (14:28)
--- NOTE | 2016-07-11 14:29 | NUR ---
Bowel Patient alert and pleasant this shift, able to take all medications including those to assist patient to have a bowel movement. Patient states prune juice usually helps, patient given prune juice X2 this AM along with medications. Patient and family educated on importance of patient moving bowels. Abdomen is rigid and distended on palpation and bowel sounds are hypoactive but present. After lactulose was administered patient did report that he stomach was "starting to turn", but denied N/V. At 1400, patient is still unable to have bowel movement and fleet enema is administered. Patient understood purpose of enema and was cooperative with turning to administer. Brief in place just in case. Patient is laying in bed. Continuing to monitor for bowel movement. Addendum: 07/11/16 at 1437 by ROBBIE ORTIZ RN Entered on incorrect patient
--- NOTE | 2016-07-11 14:52 | NUR ---
Pain Patient states his pain is a 4/10 multiple times this shift and states that the K-pad is what he prefers for pain relief. K-pad is in place behind patient while he is in bed. Does moan and tense up when changing position. Patient has been able to sleep periodically during shift. Continuing to monitor for pain with hourly rounding.
[2016-07-11 15:05] VITALS: BP 101/62; PULSE 79; RESP 20; O2SAT 94
--- NOTE | 2016-07-11 16:08 | NUR ---
Social Work: Continued Discharge Planning D: EMR reviewed. SW attempted to complete initial assessment that pt refused on 07/09. Pt is no longer refusing but asked SW to come back later. SW arrived and pt was in bathroom. SW will complete assessment on 07/12 since pt is no longer refusing. SW confirmed [facility] will take pt's on dialysis. SW made referral and gave access. A: Pt for whom a SNF has been deemed medically necessary P: Pt likely to discharge to SNF. Referrals have been made to [facility] and [facility]. SW to complete PASSR and ppw in chart 07/12 JANICE Arias
[2016-07-11 18:19] VITALS: BP 103/56; PULSE 76
--- NOTE | 2016-07-11 19:53 | PCM.PNMED ---
Subjective Date of Service Jul 11, 2016 Subjective Patient is feeling better, states right flank/rib pain is now only intermittent. Denies dyspnea. He received 1unit of blood yesterday H&H stable. states he is not having any bleeding issues. It appears that he consented to dialysis. Exam Vital Signs Vital Sign - Last Date Time Temp Pulse Resp B/P Pulse Ox O2 Delivery O2 Flow Rate FiO2 07/11/16 09:05 70 18 95 Room Air 07/11/16 04:30 36.1 95/50 Intake and Output 07/10/16 07/10/16 07/11/16 Cumulative From/Thru 15:00 23:00 07:00 07/09/16 02:39 - 07/11/16 06:51 Intake Total 770 ml 1576 ml 4502 ml Output Total 5825 ml 1750 ml 9125 ml Balance -5055 ml -174 ml -4623 ml Intake Oral 702 ml 650 ml 2032 ml IV Total 68 ml 626 ml 2170 ml Packed Cells 300 ml 300 ml Output Urine Total 325 ml 1750 ml 3625 ml Other 5500 ml 5500 ml # Voids 7 8 # Bowel Movements 2 2 Exam General: NAD, appears some what confused fiercely independent HEENT: bruising over the face Lungs: Clear to auscultation anteriorly negative for wheezing Heart: RRR, no s3/s4 sounds neck: reduced ROM neuro: some what oriented but unable to make decisions psych: neg for anxiety and agitation Extremities: Remarkable for 1+ pitting edema with dark hemosiderosis, Skin: Warm and dry, bruising over both arms left-sided facial bruising, long surgical scar on left medial leg all the way Abdomen: Swollen, distended abdomen, hypoactive bowel sounds MSK: R L LE weaker vasc: pedal pulses palpable IVs and Medications IV Fluids None Medications Reviewed: Medications were reviewed in detail Lab and Diagnostics Result Diagram: 07/11/1644407/11/16444 X-Rays, CTs and MRIs IMPRESSION: 1. Localized airspace opacity within the inferior right upper lobe abutting the minor and major fissures persists since 2014, therefore suspicious for neoplasm rather than pneumonia. A smaller similar-appearing lesion within the superior segment of the left lower lobe is also unchanged. If clinically feasible and desired, consider CT guided lung biopsy for further evaluation. 2. Background apical predominant centrilobular emphysema. 3. Cardiomegaly as before, as well as small right and trace left bibasilar mobile pleural effusions. 4. Persistent incompletely visualized abdominal ascites is of uncertain etiology. Dictated by: John Spann M.D. on 07/09/2016 at 17:54 Approved by: John Spann M.D. on 07/09/2016 at 18:06 PROCEDURE: US ABDOMEN, LIMITED ([id number]) INDICATIONS: eval ascitic fluid status for paracentesis IMPRESSION: Moderate ascites. Volume sufficient for diagnostic and/or therapeutic paracentesis. Dictated by: Suhail Cavanaugh [facility] Interpreted: Sylvain Chi MD on 07/09/2016 at 16:44 Transcribed by: LEATHA on 07/09/2016 at 16:44 Approved by: Sylvain Chi M.D. on 07/09/2016 at 16:56 PROCEDURE: CT KUB ([id number]) INDICATIONS: right flank plain IMPRESSION: 1. No evidence of nephrolithiasis or hydronephrosis. 2. Nodular cirrhotic liver with splenomegaly and ascites suggesting portal hypertension. 3. Infrarenal abdominal aortic aneurysm status post endovascular placement of an aortobiiliac stent graft redemonstrated. There is enlargement of the aneurysm sac compared to the prior study most likely reflecting an endoleak. Further evaluation be obtained with a CT angiogram. Dictated by: Jose Alfredo Mcpherson M.D. on 07/09/2016 at 9:07 Approved by: Jose Alfredo Mcpherson M.D. on 07/09/2016 at 9:39 ADDENDUM: Findings were discussed with Dr. Manzanares on 07/09/16 at 10:15 AM. Dictated by: Jose Alfredo Mcpherson M.D. on 07/09/2016 at 12:11 Approved by: Jose Alfredo Mcpherson M.D. on 07/09/2016 at 12:11 Assessment & Plan 86-year-old male with chronic right-sided heart failure, chronic atrial fibrillation, pulmonary hypertension and coronary artery disease, anasarca is admitted for acute right flank pain of unknown etiology Assessment #1 right flank and thoracic pain: Ruled out AAA graft endoleak, rib fractures. Pain may be coming from a sites or a lung mass -- Pain control with morphine IV -- X-ray of ribs, CT of chest ( prior imaging showed suspicion for lung malignancy, CT of chest showed concern for lung mass on 07/09 -- Contact patient's surgeon Dr. Refugio campbell at [facility], send them the CT abd for comparison: This has been done and this vascular surgeon feels the endoleak has been stable, aneurysm size only increased by 3-4 mm and he does not feel the pain from this would refer to right flank and right thoracic. He sees no need for repair of this at this time. We appreciate his time and recommendations -- Ordered paracentesis via IR on 07/10/77: patient consented, labs are added for cell cnt etc. #2 stage IV chronic kidney disease: He has several reasons why his kidneys would fail, namely heart failure, hepatorenal syndrome, diabetes, hypertension -- Nephrology is consulted as they have known the patient -- They have seen the patient, considered getting him started on dialysis. No one is available to place a tunneled catheter on and the weekend. Patient will have to wait till Wednesday to get the catheter put in. -- Patient currently agrees for dialysis. -- We will continue to monitor to see if we need to keep him over the weekend for dialysis: We appreciate nephrology recommendations -- Patient has been having several readmitted to hospital, he is felt to that he has to make a decision on dialysis versus hospice care in order to limit his readmissions. -- We will appreciate support and recommendations from nephrology and palliative care -- Nephro rec's: "IV lasix 100 mg Q 12hr. Metolazone 5 mg PO daily. Decrease metoprolol dosage. Add midodrine 5 mg TID. Hold ASA for tunneled cath placement on Wednesday. Fluid restriction 1 L per day, 2g Na per day." #3 concern for lung mass: -- CT of chest is ordered as above: Findings are remarkable for a lung mass. Patient is aware. #4 goals of care: Patient is a very complex patient with several serious comorbidities. He is a current DNR/DNI -- We consulted palliative care to help patient understands goals of care. We appreciate the recommendations very much -- Palliative care is in contact family -- pt refuses to go to a [facility]. #5 hepatic encephalopathy : improving -- Ammonia levels were ordered and came back elevated -- Lactulose by mouth 20 mg 3 times a day #6 hyponatremia: Likely due to liver disease -- Nephrology is following -- stable at 131 -- 2 g Sodium restriction, 1000 cc per day fluid restriction #7 anemia of chronic disease: -- We will continue to monitor daily labs, we will discuss anaresap with nephrology -- Patient is given 1 unit of blood on 07/10. H&H remain stable #8 atrial fibrillation:, Chronic -- Patient is not currently anticoagulated because of reading risk and SDH -- Continue to monitor -- Give The patient current rate control home medications #9 hypertension, chronic -- We will hold nephrotoxic home medications #10 hyperlipidemia, chronic -- Continue medications #11 diabetes, chronic: Patient has insulin 12 units every morning if blood glucose greater than 150 -- Patient's home insulin as ordered along with low sliding scale Disposition: Patient cannot obtain a CTA study the endoleak as recommended by radiology due to his poor renal function, his vascular surgeon for does not feel this is necessary. Patient may improve with therapeutic paracentesis. Palliative care is discussing his goals of care in the light of his newly found lung mass/malignancy, worsening endoleak, liver failure with anasarca. Nephrology is considering dialysis, but the tunneled catheter placement not happen until Wednesday. Pain Evaluation: Adequate Pain Control Resuscitation Status: DNR/DNI:Do Not Resuscitate/Intubate Limited Interventions: Medications and IV Fluid Time spent 25 min Elsa Manzanares DO Jul 11, 2016 09:55
[2016-07-11 20:31] VITALS: PULSE 86; RESP 18; O2SAT 97
[2016-07-11 20:45] VITALS: BP 112/68; PULSE 71; RESP 20; O2SAT 97
[2016-07-12 00:56] VITALS: BP 106/62; PULSE 82; RESP 20; O2SAT 100
--- NOTE | 2016-07-12 04:14 | NUR ---
Activity/ Bowel Pt. uses urinal with SBA to void. Pt. has voided several times tonight. paged as pt. reported constipation. Carlos CALLOWAY ordered Senna. Senna given. Pt. still has not pass a BM yet this shift. Will continue to monitor.
[2016-07-12 05:37] VITALS: BP 105/51; PULSE 67; RESP 20; O2SAT 94
[2016-07-12] MEDS: Arformoterol 15 mCg/2 mL Inhalation Solution INHALATION SCH ×2 (07:59→19:45)
[2016-07-12] MEDS: Insulin GLARgine 100 Unit/mL Syringe SUBQ SCH (08:19)
[2016-07-12] MEDS: Insulin LISPRO 300 Unit/3 mL Inj SUBQ SCH ×4 (08:19→22:45)
[2016-07-12] MEDS: Ascorbic Acid 500 mg Tablet PO SCH (08:20)
[2016-07-12] MEDS: Dorzolamide 2% 10 mL Ophthalmic Solution BOTH_EYES SCH ×2 (08:21→20:16)
[2016-07-12] MEDS: Fluticasone 250 mCg Inhaler INHALATION SCH ×3 (08:21→20:16)
[2016-07-12] MEDS: DEXTROSE 5% IVPUSH SCH ×2 (08:21→20:15)
[2016-07-12] MEDS: FUROSEMIDE IVPUSH SCH ×2 (08:21→20:15)
[2016-07-12] MEDS: MeTOProlol XL 25 mg ER24 Tablet PO SCH (08:21)
[2016-07-12] MEDS ORDERED: Potassium Chloride 20 mEq SR Tablet PO ONE ×2 (08:45→18:00)
[2016-07-12] MEDS ORDERED: Potassium Chloride Inj 20 MEQ in Dextrose 5% 250 ML IV ONE (08:45)
--- NOTE | 2016-07-12 10:25 | NUR ---
JOSE RAMON signed by pt
[2016-07-12] MEDS: 0.9% Sodium Chloride 250 ML IV SCH (14:33)
--- NOTE | 2016-07-12 14:43 | NUR ---
Social Work: Initial Assessment D: EMR reviewed. See [facility] Brief Note 07/09. Pt initially refused SW assessment. Pt willing to do assessment after considering recommendation for SNF. [facility] met with pt at bedside to conduct initial assessment. Pt was alert and oriented x3. SW explained role and wrote phone number on white board. GENARO confirmed pt has completed DPOA/advanced directive and provided a copy to RN on [facility] upon arrival. Pt's insurance is Medicare and [employer]. Pt's PCP is [facility] Mcclellan. Pt's primary contact is brother/DPOA Elijah Jonse ([phone]) who can be contacted for discharge planning. Pt is open with [facility] for RN PT 3x/wk. Pt has hx at SNF in [place] (pt can't recall name of SNF). Pt has no LTC insurance or VA benefits. Pt is independent with ADLs. Pt uses a cane to ambulate and is on 2L of home o2 provided through [employer]. Pt does not own or use any other DME. Pt drives. Pt is independent at baseline. Pt is on dialysis. Pt lives alone in a single-story home with 5 steps to enter in [place]. placed order for SW consult for SNF placement on 07/11. [facility]O met with pt on 07/11 to discuss SNF. SW provided choice list. Pt and pt's son Issa ([phone]) were present in pt's room. Pt and son agreed that SNF is a good idea per PT recommendations. Pt requested SW make referral to [facility] and [facility]. SW attempted initial assessment on 07/11 but pt declined and asked SW to return later. SW returned 07/12 to complete full assessment. SW faxed face sheet and PASSR to [facility] and [facility]. SW gave access to [facility] and [facility]. [facility] confirmed they can take pt's on dialysis and will review pt's clinicals. GENARO placed PASSR and body sheet in hard chart. SW is still waiting to hear back from [facility] and [facility]. GENARO placed T/C to pt's son Issa today to reconfirm plan. Pt and son agreeable to SNF placement and discharge plan. A: Pt for whom a SNF has been deemed medically necessary. P: Pt likely to discharge to SNF on dialysis. [facility]ARO sent referrals to [facility] and [facility]. [facility]O gave access and faxed PASSR and face sheet to [facility] and [facility]. GENARO placed PASSR and body sheet in hard chart. [facility]O will continue to follow for SNF placement and update pt's brother/DPOA on discharge plan. (GENARO attempted to contact DPOA today and left voicemail). GENARO placed T/C to Cecy from [facility] and confirmed that pt will likely be discharging to SNF (pt is currently open with [facility] for RN PT 3x/week. [facility]O will continue to follow. JANICE Arias Addendum: 07/12/16 at 1503 by CLAUDIA PENA Amended: Links added.
--- NOTE | 2016-07-12 14:45 | PCM.PNNEPH ---
Subjective Date of Service Jul 12, 2016 Subjective K 2.9. Somewhat responded with IV lasix and metolazone. LE swelling noted, not improved. c/o constipation, ammonia level 78. Exam Vital Signs Vital Sign - Last Date Time Temp Pulse Resp B/P Pulse Ox O2 Delivery O2 Flow Rate FiO2 07/12/16 05:37 37.1 67 20 105/51 94 Room Air Intake and Output 07/11/16 07/11/16 07/12/16 Cumulative From/Thru 15:00 23:00 07:00 07/09/16 02:39 - 07/12/16 05:37 Intake Total 65 ml 800 ml 200 ml 5567 ml Output Total 1500 ml 2122 ml 49850 ml Balance 65 ml -700 ml -1922 ml -7180 ml Intake Oral 800 ml 200 ml 3032 ml IV Total 65 ml 2235 ml Packed Cells 300 ml Output Urine Total 1500 ml 2110 ml 7235 ml Urine/Stool Mix 12 ml 12 ml Other 5500 ml # Voids 8 # Bowel Movements 0 0 2 Exam General: Alert, Oriented X3 Eyes: PERRLA, EOMI, Scleral Anicteric Mouth: Mucous Membr Moist/[place] Chest & Lungs: Clear to auscultation & percussion, crackles in the lower bases Cardiovascular: Murmur 2+ systolic, JVD, irregular irregular Abdomen: mild distension, nontender, hypoactive BS. Extremities: Edema b/l +3 pitting edema to waist, weeping legs. Neurological: Grossly Neurologically Intact, Cranial Nerves 2-12 Intact Lab and Diagnostics Result Diagram: 07/12/16 0700 07/12/16 0700 X-Rays, CTs and MRIs IMPRESSION: 1. Localized airspace opacity within the inferior right upper lobe abutting the minor and major fissures persists since 2014, therefore suspicious for neoplasm rather than pneumonia. A smaller similar-appearing lesion within the superior segment of the left lower lobe is also unchanged. If clinically feasible and desired, consider CT guided lung biopsy for further evaluation. 2. Background apical predominant centrilobular emphysema. 3. Cardiomegaly as before, as well as small right and trace left bibasilar mobile pleural effusions. 4. Persistent incompletely visualized abdominal ascites is of uncertain etiology. Dictated by: John Spann M.D. on 07/09/2016 at 17:54 Approved by: John Spann M.D. on 07/09/2016 at 18:06 PROCEDURE: US ABDOMEN, LIMITED ([id number]) INDICATIONS: eval ascitic fluid status for paracentesis IMPRESSION: Moderate ascites. Volume sufficient for diagnostic and/or therapeutic paracentesis. Dictated by: Suhail Cavanaugh RRA Interpreted: Sylvain Chi MD on 07/09/2016 at 16:44 Transcribed by: LEATHA on 07/09/2016 at 16:44 Approved by: Sylvain Chi M.D. on 07/09/2016 at 16:56 PROCEDURE: CT KUB ([id number]) INDICATIONS: right flank plain IMPRESSION: 1. No evidence of nephrolithiasis or hydronephrosis. 2. Nodular cirrhotic liver with splenomegaly and ascites suggesting portal hypertension. 3. Infrarenal abdominal aortic aneurysm status post endovascular placement of an aortobiiliac stent graft redemonstrated. There is enlargement of the aneurysm sac compared to the prior study most likely reflecting an endoleak. Further evaluation be obtained with a CT angiogram. Dictated by: Jose Alfredo Mcpherson M.D. on 07/09/2016 at 9:07 Approved by: Jose Alfredo Mcpherson M.D. on 07/09/2016 at 9:39 ADDENDUM: Findings were discussed with Dr. Manzanares on 07/09/16 at 10:15 AM. Dictated by: Jose Alfredo Mcpherson M.D. on 07/09/2016 at 12:11 Approved by: Jose Alfredo Mcpherson M.D. on 07/09/2016 at 12:11 Plan Impression 1. ESRD now declared. 2. Liver cirrhosis with ascites s/p paracentesis. 3. Cardiorenal syndrome 4. Chronic Afib 5. HFrEF 6. DM with diabetic nephropathy. Plan: Supportive treatment for now. IV lasix 100 mg Q 12hr. Metolazone 5 mg PO daily. Replace K. Start lactulose. Hold ASA for tunneled cath placement on Wednesday. Fluid restriction 1 L per day, 2g Na per day. [facility] consultation. Terra Banks MD Jul 12, 2016 14:45
[2016-07-12 15:48] VITALS: BP 121/47; PULSE 68; RESP 15; O2SAT 100
--- NOTE | 2016-07-12 15:52 | NUR ---
Pain/Fluid Restriction Patient moaning with movement for entire shift. States he only needs his heating pad. K-pad in place behind patient. Patient able to sleep periodically throughout day and states he has no pain until he moves. Refused anything other than heat for pain. Continuing to assess patient needs and comfort. Patient educated about fluid restriction this AM and patient cooperative. Ice chips given to patient which patient does prefer to ice water. Recording intake closely. Adequate urine output during shift. Reduced edema on BLE compared to yesterday. Continuing to monitor intake and patient needs.
--- NOTE | 2016-07-12 17:24 | PCM.PNMED ---
Subjective Date of Service Jul 12, 2016 Subjective Patient understands that he will be going to [facility] or [facility] following discharge and in agreement with that. He agreed to dialysis but waiting for the tunnel catheter to be placed. He has no right flank pain today. He states that he continues to improve following paracentesis 2 days ago. Exam Vital Signs Vital Sign - Last Date Time Temp Pulse Resp B/P Pulse Ox O2 Delivery O2 Flow Rate FiO2 07/12/16 15:48 37.0 68 15 121/47 100 Room Air Intake and Output 07/11/16 07/11/16 07/12/16 Cumulative From/Thru 15:00 23:00 07:00 07/09/16 02:39 - 07/12/16 05:37 Intake Total 65 ml 800 ml 200 ml 5567 ml Output Total 1500 ml 2122 ml 45584 ml Balance 65 ml -700 ml -1922 ml -7180 ml Intake Oral 800 ml 200 ml 3032 ml IV Total 65 ml 2235 ml Packed Cells 300 ml Output Urine Total 1500 ml 2110 ml 7235 ml Urine/Stool Mix 12 ml 12 ml Other 5500 ml # Voids 8 # Bowel Movements 0 0 2 Exam General: NAD HEENT: bruising over the face Lungs: Clear to auscultation anteriorly negative for wheezing Heart: RRR, no s3/s4 sounds neuro: No focal deficits psych: neg for anxiety and agitation Extremities: Remarkable for 2+ pitting edema with dark hemosiderosis Skin: Warm and dry, bruising over both arms left-sided facial bruising, long surgical scar on left medial leg all the way Abdomen: Swollen, abdomen appears worse than yesterday, bowel sounds are present MSK: R L LE weaker, no right flank pain today on palpation vasc: pedal pulses palpable IVs and Medications IV Fluids None Medications Reviewed: Medications were reviewed in detail Lab and Diagnostics Result Diagram: 07/12/16 0700 07/12/16 0700 X-Rays, CTs and MRIs IMPRESSION: 1. Localized airspace opacity within the inferior right upper lobe abutting the minor and major fissures persists since 2014, therefore suspicious for neoplasm rather than pneumonia. A smaller similar-appearing lesion within the superior segment of the left lower lobe is also unchanged. If clinically feasible and desired, consider CT guided lung biopsy for further evaluation. 2. Background apical predominant centrilobular emphysema. 3. Cardiomegaly as before, as well as small right and trace left bibasilar mobile pleural effusions. 4. Persistent incompletely visualized abdominal ascites is of uncertain etiology. Dictated by: John Spann M.D. on 07/09/2016 at 17:54 Approved by: John Spann M.D. on 07/09/2016 at 18:06 PROCEDURE: US ABDOMEN, LIMITED ([id number]) INDICATIONS: eval ascitic fluid status for paracentesis IMPRESSION: Moderate ascites. Volume sufficient for diagnostic and/or therapeutic paracentesis. Dictated by: Suhail Cavanaugh [facility] Interpreted: Sylvain Chi MD on 07/09/2016 at 16:44 Transcribed by: LEATHA on 07/09/2016 at 16:44 Approved by: Sylvain Chi M.D. on 07/09/2016 at 16:56 PROCEDURE: CT KUB ([id number]) INDICATIONS: right flank plain IMPRESSION: 1. No evidence of nephrolithiasis or hydronephrosis. 2. Nodular cirrhotic liver with splenomegaly and ascites suggesting portal hypertension. 3. Infrarenal abdominal aortic aneurysm status post endovascular placement of an aortobiiliac stent graft redemonstrated. There is enlargement of the aneurysm sac compared to the prior study most likely reflecting an endoleak. Further evaluation be obtained with a CT angiogram. Dictated by: Jose Alfredo Mcpherson M.D. on 07/09/2016 at 9:07 Approved by: Jose Alfredo Mcpherson M.D. on 07/09/2016 at 9:39 ADDENDUM: Findings were discussed with Dr. Manzanares on 07/09/16 at 10:15 AM. Dictated by: Jose Alfredo Mcpherson M.D. on 07/09/2016 at 12:11 Approved by: Jose Alfredo Mcpherson M.D. on 07/09/2016 at 12:11 Assessment & Plan 86-year-old male with chronic right-sided heart failure, chronic atrial fibrillation, pulmonary hypertension and coronary artery disease, anasarca is admitted for acute right flank pain of unknown etiology # Acute Hypokalemia -- on 07/12, repleted with 20 meq IV K and 20 meq PO. -- Continue to monitor. # Stage IV chronic kidney disease: He has several reasons why his kidneys would fail, namely heart failure, hepatorenal syndrome, diabetes, hypertension -- Nephrology is consulted as they have known the patient -- They have seen the patient, considered getting him started on dialysis. No one is available to place a tunneled catheter on and the weekend. Patient will have to wait till Wednesday to get the catheter put in. -- Patient currently agrees for dialysis. -- We will continue to monitor to see if we need to keep him over the weekend for dialysis: We appreciate nephrology recommendations -- Patient has been having several readmissions to hospital, he has to make a decision on dialysis versus hospice care in order to limit his readmissions. -- We will appreciate support and recommendations from nephrology and palliative care -- Nephro rec's: "IV lasix 100 mg Q 12hr. Metolazone 5 mg PO daily. Decrease metoprolol dosage. Add midodrine 5 mg TID. Hold ASA for tunneled cath placement on Wednesday. Fluid restriction 1 L per day, 2g Na per day." # Hepatic encephalopathy : improving -- Ammonia levels were ordered and came back elevated -- Lactulose by mouth 20 mg 3 times a day, titrate to 3-4 bowel movements per day -- Verify I&O are accurate, he only had one BM on 07/11 ? # Hyponatremia: Likely due to liver disease -- Nephrology is following -- stable at 132 -- 2 g Sodium restriction, 1000 cc per day fluid restriction -- Daily BMP/renal function labs # Anemia of chronic disease: -- Patient is given 1 unit of blood on 07/10. H&H remain stable -- Patient is started on iron supplementation --We will continue to monitor daily labs, discuss anaresap with nephrology Assessment # right flank and thoracic pain: Ruled out AAA graft endoleak, rib fractures. Pain may be coming from a sites or a lung mass: Resolved -- Pain control with morphine IV -- X-ray of ribs, CT of chest ( prior imaging showed suspicion for lung malignancy, CT of chest showed concern for lung mass on 07/09 -- Contact patient's surgeon Dr. Refugio campbell at [facility], send them the CT abd for comparison: This has been done and this vascular surgeon feels the endoleak has been stable, aneurysm size only increased by 3-4 mm and he does not feel the pain from this would refer to right flank and right thoracic. He sees no need for repair of this at this time. We appreciate his time and recommendations -- Ordered paracentesis via IR on 07/10/16: patient consented, no concern for exudates based on light's criteria -- Patient no longer complains about right flank pain on 07/12/16 # goals of care: Patient is a very complex patient with several serious comorbidities. He is a current DNR/DNI -- We consulted palliative care to help patient understands goals of care. We appreciate the recommendations very much -- Patient is agreeable to the discharge to SNF # Concern for lung mass: -- CT of chest is ordered as above: Findings are remarkable for a lung mass. Patient is aware. -- Patient will need outpatient bronchoscopy after his dialysis initiation is taken care of. # Atrial fibrillation:, Chronic -- Patient is not currently anticoagulated because of reading risk and SDH -- Continue to monitor -- Give The patient current rate control home medications # Hypertension, chronic -- We will hold nephrotoxic home medications # hyperlipidemia, chronic -- Continue medications # Diabetes, chronic: Patient has insulin 12 units every morning if blood glucose greater than 150 -- Patient's home insulin as ordered along with low sliding scale Disposition: Patient cannot obtain a CTA study the endoleak as recommended by radiology due to his poor renal function, his vascular surgeon for does not feel this is necessary. Patient improved some with therapeutic paracentesis. Palliative care is discussing his goals of care in the light of his newly found lung mass/malignancy, worsening endoleak, liver failure with anasarca. He will need a o/p biopsy of the lung mass. Nephrology is considering dialysis, but the tunneled catheter placement not happening until Wednesday. D/C to SNF in 2-3 days. Pain Evaluation: Adequate Pain Control Resuscitation Status: DNR/DNI:Do Not Resuscitate/Intubate Limited Interventions: Medications and IV Fluid Time spent 25 min Elsa Manzanares DO Jul 12, 2016 17:14
[2016-07-12] MEDS: Lactulose 20 Gm/30 mL 30 mL Syrup PO SCH ×2 (17:32→20:15)
[2016-07-12 19:45] VITALS: PULSE 78; RESP 18; O2SAT 96
[2016-07-12 19:55] VITALS: BP 159/80; PULSE 76; RESP 20; O2SAT 96
[2016-07-13] VITALS (11 sets, daily range): BP systolic 101–127; BP diastolic 56–72; PULSE 74–94; RESP 12–20; O2SAT 91–96
--- NOTE | 2016-07-13 04:28 | NUR ---
BM Patient passed significantly large solid BM at start of shift, then a extra large loose half way through. Reports abdomen discomfort has improved. Abdomen remains distended and firm. Otherwise patient sleeping comfortably, bed in low position, call light within reach and intentional rounding. Will continue plan of care.
[2016-07-13 05:41] LABS: BASOPHILS % (AUTO) 0.1 % (0-3); EOSINOPHILS % (AUTO) 0.6 % (0-5); Mean Corpuscular Hemoglobin 27.3 pg (27.0-35.0); Mean Corpuscular Volume 87.6 fL (81-100); Platelet Count 146 bil/L (150-400)
[2016-07-13 05:54] LABS: INR 1.08 ratio
[2016-07-13 06:12] LABS: Magnesium 2.6 mg/dL (1.6-2.6); Phosphorus 4.4 mg/dL (2.5-4.9)
[2016-07-13] MEDS: Arformoterol 15 mCg/2 mL Inhalation Solution INHALATION SCH ×2 (07:51→19:33)
[2016-07-13] MEDS: Insulin LISPRO 300 Unit/3 mL Inj SUBQ SCH ×4 (08:00→22:30)
[2016-07-13] MEDS: Lactulose 20 Gm/30 mL 30 mL Syrup PO SCH ×3 (08:30→21:05)
[2016-07-13] MEDS: MeTOProlol XL 25 mg ER24 Tablet PO SCH (08:30)
[2016-07-13] MEDS: Ascorbic Acid 500 mg Tablet PO SCH (08:30)
[2016-07-13] MEDS ORDERED: KCl 40 mEq/D5W 500 mL 40 MEQ in IV Premix 1 EACH IV ONE (10:05)
--- NOTE | 2016-07-13 10:25 | PCM.PALLBR ---
Palliative Care Recommendation 86-year-old gentleman with multiple medical problems including advanced liver disease/cirrhosis, severe COPD and cor pulmonale, acute on chronic renal failure , etc. Palliative medicine consult to assist in determination of goals of care. The patient has been inconsistent/ambivalent about his wishes for further care. In particular, his renal failure has progressed to the point where he has worsening azotemia, and cannot be adequately diuresed, and so needs to make a decision about progressing to dialysis. Summary of palliative recommendations: 07/13/16-Palliative will sign off at this point since [facility] established. Please call us if anything comes up that we might be able to assist. Ultimately, after multiple conversations today with patient, his caregivers and family members, he seemed to be solidifying a decision to trial dialysis (with tunneled catheter placement to be carried out on Wednesday, July 13) and then to go to an SNF for at least several weeks while initiating dialysis. He would then see how he felt after several weeks of dialysis- if he was feeling considerably better and had strengthened adequately, he might be able to go home with home health support. If he was feeling better but found that he liked the SNF, he might stay there. If however, he felt dialysis was either not helping or he did not like it, then decision could be made to either go home with hospice or have hospice/comfort care at the SNF. His brother and [id number] thought that this was a good plan as well. -Symptom management (Pain/other) Pain- improved with heating pad. Dr. Hammond observed that this could be muscle spasms related to his uremia and so might improve upon initiation of dialysis. 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 We did talk at length about his medium and [facility]cfp prognosis and he understands that as a consequence of his multiple medical conditions that his lifespan is probably measured in months -Family/emotional support-primarily from his brother and SAVANA Problems: End of Life Preferences DNR/DNI/no FT Goals of Care see above Disposition TBD Resuscitation Status Resuscitation Status: DNR/DNI:Do Not Resuscitate/Intubate Limited Interventions: Medications and IV Fluid POLST Updates/Changes Artificially Admin Nutrition: No Artifical Nutrition by Tube POLST Discussed with: Patient Total time 15 minutes; >50% face to face with patient and/or family, providing counselling regarding plans and recommendations, and in care coordination with his/her medical teams. I also spent an additional [ ] minutes counseling for advanced care planning with the patient/the patients family/the surrogate decision maker. Palliative Brief Note Date of Service Jul 13, 2016 . Awakened pt from sleep-bit gruff which is his usual. He remains comfortable with idea of dialysis. Case reviewed with CM with plan for catheter placement then dialysis and then assessment about SNF placement at least for the short term as noted by Dr. Osborn. Paracentesis decreased abd pressure Still significant edema. comfortable sleeping at 30 degree head elevation. Goals of care established and confirmed for this patient. Palliative will sign off at this time. Please feel free to contact us if further issues develop. Malia Neves MD Jul 13, 2016 10:25
[2016-07-13] MEDS: Insulin GLARgine 100 Unit/mL Syringe SUBQ SCH (11:03)
--- NOTE | 2016-07-13 11:09 | NUR ---
[facility] [place] will accept pt with Dr. Torres to follow
[2016-07-13] MEDS: Fluticasone 250 mCg Inhaler INHALATION SCH ×2 (11:10→20:30)
[2016-07-13] MEDS: Dorzolamide 2% 10 mL Ophthalmic Solution BOTH_EYES SCH ×2 (11:11→20:53)
[2016-07-13] MEDS: FUROSEMIDE IVPUSH SCH ×2 (11:22→20:55)
[2016-07-13] MEDS: DEXTROSE 5% IVPUSH SCH ×2 (11:22→20:55)
[2016-07-13] MEDS ORDERED: Potassium Chloride Inj 20 MEQ in Dextrose 5% 250 ML IV ONE (11:30)
--- NOTE | 2016-07-13 12:05 | NUR ---
Evaluation completed. Please go to "Notes" then click on "Assessments and Notes" (bottom left corner of screen). Then select appropriate discipline tab on top of screen.
--- NOTE | 2016-07-13 13:32 | PCM.PNNEPH ---
Subjective Date of Service Jul 13, 2016 Subjective The patient is well known to me from multiple previous admissions for acute on chronic kidney injury. He has severe end-stage cardiomyopathy, chronic cirrhosis, chronic kidney disease, and severe COPD. He has had multiple hospitalizations for decompensation all of the above mentioned symptoms. Past I have spoken to the patient about starting dialysis and each time he has deferred this. He was seen by my associate when he came in and he is scheduled to get a tunnel catheter and start dialysis today. Exam Vital Signs Vital Sign - Last Date Time Temp Pulse Resp B/P Pulse Ox O2 Delivery O2 Flow Rate FiO2 07/13/16 10:41 91 07/13/16 09:48 36.3 12 109/61 91 07/13/16 07:52 Room Air Intake and Output 07/12/16 07/12/16 07/13/16 Cumulative From/Thru 15:00 23:00 07:00 07/09/16 02:39 - 07/13/16 06:02 Intake Total 360 ml 600 ml 260 ml 6787 ml Output Total 2175 ml 1950 ml 18887 ml Balance 360 ml -1575 ml -1690 ml -85269 ml Intake Oral 600 ml 200 ml 3832 ml IV Total 360 ml 60 ml 2655 ml Packed Cells 300 ml Output Urine Total 2175 ml 1950 ml 73000 ml Urine/Stool Mix 12 ml Other 5500 ml # Voids 8 # Bowel Movements 0 2 4 Exam Patient is considerably more immediate did and has diffuse ecchymosis throughout his body which is minimal compared to his previous symptoms. He has significant venous distention at 60 elevation. His lungs show bibasilar rales heart is regular. Abdomen is distended with fluid wave noted (non-tense. There is evidence of hepatomegaly in the liver is pulsatile with a pattern. Her reflux noted. Extremities showed mild pitting edema up to his hips. Lab and Diagnostics Result Diagram: 07/13/16 0503 07/13/16 0503 X-Rays, CTs and MRIs IMPRESSION: 1. Localized airspace opacity within the inferior right upper lobe abutting the minor and major fissures persists since 2014, therefore suspicious for neoplasm rather than pneumonia. A smaller similar-appearing lesion within the superior segment of the left lower lobe is also unchanged. If clinically feasible and desired, consider CT guided lung biopsy for further evaluation. 2. Background apical predominant centrilobular emphysema. 3. Cardiomegaly as before, as well as small right and trace left bibasilar mobile pleural effusions. 4. Persistent incompletely visualized abdominal ascites is of uncertain etiology. Dictated by: John Spann M.D. on 07/09/2016 at 17:54 Approved by: John Spann M.D. on 07/09/2016 at 18:06 PROCEDURE: US ABDOMEN, LIMITED ([id number]) INDICATIONS: eval ascitic fluid status for paracentesis IMPRESSION: Moderate ascites. Volume sufficient for diagnostic and/or therapeutic paracentesis. Dictated by: Suhail Cavanaugh [facility] Interpreted: Sylvain Chi MD on 07/09/2016 at 16:44 Transcribed by: LEATHA on 07/09/2016 at 16:44 Approved by: Sylvain Chi M.D. on 07/09/2016 at 16:56 PROCEDURE: CT KUB ([id number]) INDICATIONS: right flank plain IMPRESSION: 1. No evidence of nephrolithiasis or hydronephrosis. 2. Nodular cirrhotic liver with splenomegaly and ascites suggesting portal hypertension. 3. Infrarenal abdominal aortic aneurysm status post endovascular placement of an aortobiiliac stent graft redemonstrated. There is enlargement of the aneurysm sac compared to the prior study most likely reflecting an endoleak. Further evaluation be obtained with a CT angiogram. Dictated by: Jose Alfredo Mcpherson M.D. on 07/09/2016 at 9:07 Approved by: Jose Alfredo Mcpherson M.D. on 07/09/2016 at 9:39 ADDENDUM: Findings were discussed with Dr. Manzanares on 07/09/16 at 10:15 AM. Dictated by: Jose Alfredo Mcpherson M.D. on 07/09/2016 at 12:11 Approved by: Jose Alfredo Mcpherson M.D. on 07/09/2016 at 12:11 Plan Impression Impression #1 coronary syndrome with end-stage congestive heart failure #2 hepatorenal syndrome #3 chronic kidney disease stage 4/5 Recommendations #1 the patient is to be dialyzed today and half hours on a regular dialyzer, 250 blood flow 600 dialysate flow, all 4 potassium bath, 1200 of heparin, and will try to take 1-2 L of fluid off as tolerated. Recommendations for second treatment tomorrow. Refugio Sprague DO Jul 13, 2016 13:32
[2016-07-13] MEDS ORDERED: 0.9% Sodium Chloride 1,000 ML ONE (13:54)
[2016-07-13] MEDS ORDERED: 0.9% Sodium Chloride 250 ML ONE (13:54)
--- NOTE | 2016-07-13 14:05 | PCM.PNMED ---
Subjective Date of Service Jul 13, 2016 Subjective No new events or complaints. Awaiting tunneled dialysis catheter placement. Exam Vital Signs Vital Sign - Last Date Time Temp Pulse Resp B/P Pulse Ox O2 Delivery O2 Flow Rate FiO2 07/13/16 10:41 91 07/13/16 09:48 36.3 12 109/61 91 07/13/16 07:52 Room Air Intake and Output 07/12/16 07/12/16 07/13/16 Cumulative From/Thru 15:00 23:00 07:00 07/09/16 02:39 - 07/13/16 06:02 Intake Total 360 ml 600 ml 260 ml 6787 ml Output Total 2175 ml 1950 ml 39191 ml Balance 360 ml -1575 ml -1690 ml -53834 ml Intake Oral 600 ml 200 ml 3832 ml IV Total 360 ml 60 ml 2655 ml Packed Cells 300 ml Output Urine Total 2175 ml 1950 ml 58848 ml Urine/Stool Mix 12 ml Other 5500 ml # Voids 8 # Bowel Movements 0 2 4 Exam General: NAD HEENT: bruising over the face Lungs: Clear to auscultation anteriorly negative for wheezing Heart: RRR, no s3/s4 sounds neuro: No focal deficits psych: neg for anxiety and agitation Extremities: Remarkable for 2+ pitting edema with dark hemosiderosis Skin: Warm and dry, bruising over both arms left-sided facial bruising, long surgical scar on left medial leg all the way Abdomen: Swollen, abdomen appears worse than yesterday, bowel sounds are present MSK: R L LE weaker, no right flank pain today on palpation vasc: pedal pulses palpable IVs and Medications Medications Reviewed: Medications were reviewed in detail Lab and Diagnostics Result Diagram: 07/13/16 0503 07/13/16 0503 X-Rays, CTs and MRIs IMPRESSION: 1. Localized airspace opacity within the inferior right upper lobe abutting the minor and major fissures persists since 2014, therefore suspicious for neoplasm rather than pneumonia. A smaller similar-appearing lesion within the superior segment of the left lower lobe is also unchanged. If clinically feasible and desired, consider CT guided lung biopsy for further evaluation. 2. Background apical predominant centrilobular emphysema. 3. Cardiomegaly as before, as well as small right and trace left bibasilar mobile pleural effusions. 4. Persistent incompletely visualized abdominal ascites is of uncertain etiology. Dictated by: John Spann M.D. on 07/09/2016 at 17:54 Approved by: John Spann M.D. on 07/09/2016 at 18:06 PROCEDURE: US ABDOMEN, LIMITED ([id number]) INDICATIONS: eval ascitic fluid status for paracentesis IMPRESSION: Moderate ascites. Volume sufficient for diagnostic and/or therapeutic paracentesis. Dictated by: Suhail Cavanaugh RRA Interpreted: Sylvain Chi MD on 07/09/2016 at 16:44 Transcribed by: LEATHA on 07/09/2016 at 16:44 Approved by: Sylvain Chi M.D. on 07/09/2016 at 16:56 PROCEDURE: CT KUB ([id number]) INDICATIONS: right flank plain IMPRESSION: 1. No evidence of nephrolithiasis or hydronephrosis. 2. Nodular cirrhotic liver with splenomegaly and ascites suggesting portal hypertension. 3. Infrarenal abdominal aortic aneurysm status post endovascular placement of an aortobiiliac stent graft redemonstrated. There is enlargement of the aneurysm sac compared to the prior study most likely reflecting an endoleak. Further evaluation be obtained with a CT angiogram. Dictated by: Jose Alfredo Mcpherson M.D. on 07/09/2016 at 9:07 Approved by: Jose Alfredo Mcpherson M.D. on 07/09/2016 at 9:39 ADDENDUM: Findings were discussed with Dr. Manzanares on 07/09/16 at 10:15 AM. Dictated by: Jose Alfredo Mcpherson M.D. on 07/09/2016 at 12:11 Approved by: Jose Alfredo Mcpherson M.D. on 07/09/2016 at 12:11 Assessment & Plan 86-year-old male with chronic right-sided heart failure, chronic atrial fibrillation, pulmonary hypertension and coronary artery disease, anasarca is admitted for acute right flank pain of unknown etiology # Acute Hypokalemia -- repleted with 20 meq IV K and 20 meq PO. -- Continue to monitor. # ESRD/Stage IV chronic kidney disease: He has several reasons why his kidneys would fail, namely heart failure, hepatorenal syndrome, diabetes, hypertension -- Nephrology is consulted as they have known the patient -- They have seen the patient, he will get tunneled catheter today 07/13 and dialysis later -- We will appreciate support and recommendations from nephrology and palliative care -- Continue IV lasix 100 mg Q 12hr. Metolazone 5 mg PO daily. Decrease metoprolol dosage. Add midodrine 5 mg TID. Fluid restriction 1 L per day, 2g Na per day. # Hepatic encephalopathy : improving -- Ammonia levels were ordered and came back elevated -- Lactulose by mouth 20 mg 3 times a day, titrate to 3-4 bowel movements per day # Hyponatremia: Likely due to liver disease -- Nephrology is following -- stable at 132 -- 2 g Sodium restriction, 1000 cc per day fluid restriction # Anemia of chronic disease: -- Patient is given 1 unit of blood on 07/10. H&H remain stable -- Patient is started on iron supplementation --We will continue to monitor daily labs, discuss anaresap with nephrology # right flank and thoracic pain: Ruled out AAA graft endoleak, rib fractures. Pain may be coming from a sites or a lung mass: Pain Resolved -- Pain control with morphine IV -- X-ray of ribs, CT of chest ( prior imaging showed suspicion for lung malignancy, CT of chest showed concern for lung mass on 07/09 -- Contact patient's surgeon Dr. Refugio campbell at [facility], send them the CT abd for comparison: This has been done and this vascular surgeon feels the endoleak has been stable, aneurysm size only increased by 3-4 mm and he does not feel the pain from this would refer to right flank and right thoracic. He sees no need for repair of this at this time. We appreciate his time and recommendations -- Ordered paracentesis via IR on 07/10/16: patient consented, no concern for exudates based on light's criteria -- Patient no longer complains about right flank pain on 07/12/16 # goals of care: Patient is a very complex patient with several serious comorbidities. He is a current DNR/DNI -- We consulted palliative care to help patient understands goals of care. We appreciate the recommendations very much -- Patient is agreeable to the discharge to SNF # Concern for lung mass: -- CT of chest is ordered as above: Findings are remarkable for a lung mass. Patient is aware. -- Patient will need outpatient bronchoscopy and/or dedicated CT with contrast after his dialysis initiation is taken care of. # Atrial fibrillation:, Chronic -- Patient is not currently anticoagulated because of reading risk and SDH -- Continue to monitor -- Give The patient current rate control home medications # Hypertension, chronic -- We will hold nephrotoxic home medications # hyperlipidemia, chronic -- Continue medications # Diabetes, chronic: Patient has insulin 12 units every morning if blood glucose greater than 150 -- Patient's home insulin as ordered along with low sliding scale Disposition: Dialysis to be initiated and inpatient. D/C to SNF in 2-3 days. Resuscitation Status: DNR/DNI:Do Not Resuscitate/Intubate Limited Interventions: Medications and IV Fluid Wade Rod MD Jul 13, 2016 14:05
[2016-07-13] MEDS ORDERED: fentaNYL-PF 50 mCg/mL 2 mL Inj ONE (14:32)
[2016-07-13] MEDS ORDERED: CeFAZolin Inj 2 gm / 50mL D5W IV ONE (14:36)
[2016-07-13] MEDS: 0.9% Sodium Chloride 250 ML IV SCH (14:45)
[2016-07-13] MEDS ORDERED: HepLOK Flush 100 unit/mL 5 mL Inj ONE (14:47)
--- NOTE | 2016-07-13 14:47 | NUR ---
[facility] accepted pt with Dr. Bal to follow.
--- NOTE | 2016-07-13 15:23 | DRSVH ---
PROCEDURE: CV TUNNEL CATH PLCMNT 1. Sonographic guidance for venous access. 2. Conscious sedation for 40 minutes. 3. Right internal jugular vein tunneled hemodialysis catheter placement. 4. Fluoroscopic guidance for catheter placement. INDICATIONS: End-stage renal disease. TECHNIQUE: The indications, alternatives, benefits, risks, and complications of the procedure were e xplained to the patient and any family members present. Informed written consent was obtained and pl aced in the chart. The patient was brought to the angiography suite, and conscious sedation was admi nistered intravenously by [facility] staff, while continuous cardiorespiratory monitoring was pe rformed. Maximum sterile barrier technique was employed per standard protocol, including hand hygiene, cap, ma sk, sterile gown and gloves, and 2% chlorhexidine. Sterile ultrasound probe cover was also utilized. 1% lidocaine was used for local anaesthesia. Under sonographic guidance, the right internal jugular vein was accessed with a Micropuncture set. An 0.035J wire was advanced into the vena cava. Subcuta neous tunnel was created within the right anterior chest wall, through which a 14.5 [place] double lum en tunneled hemodialysis catheter was advanced. Following sequential venotomy tract dilation, the ca theter was advanced through the peel-away sheath and the tip was placed at the cavoatrial junction. Peel-away sheath was removed. Adequate flow was obtained through both lumens of the catheter. The v enotomy was closed with Vicryl, and the catheter was fastened to the sking with Ticron. Both lumens were flushed with heparinized saline. The patient tolerated the procedure without difficulty and was in stable condition at the conclusion of the procedure. COMPARISON: None. FINDINGS: The right internal jugular vein is patent by ultrasound. Fluoroscopic imaging demonstrates tip of th e catheter at the cavoatrial junction. IMPRESSION: Right internal jugular vein tunneled hemodialysis catheter placement using sonographic and fluoroscop ic guidance. Dictated by: Siobhan Lowery M.D. on 07/13/2016 at 15:20 Approved by: Siobhan Lowery M.D. on 07/13/2016 at 15:21
[2016-07-13] MEDS ORDERED: Albumin 25% 100 ML IV ONE (15:26)
--- NOTE | 2016-07-13 15:28 | NUR ---
Medications/Tunnel Cath/Dialysis Plan for pt to have tunnel catheter placed today; made NPO at [place] for this; confirmed medication administration with Dr. Rod: -Metoprolol withheld d/t low BP, Lantus lowered to 6 units and sliding scale given for hyperglycemia, Lasix given despite low K and electrolytes; all other PO meds withheld d/t NPO. -Per Dr. Sprague, K+ rider of 40mg not given, order adjusted to 20mg which was hung around noon. Pt transported to pathology laboratory technologist at 1420 for procedure. Confirmed consent signed and 2 PIV's patent. BS 172 at this time. Minimal sedation used and pt taken directly to dialysis at this time.
[2016-07-13] MEDS ORDERED: Albumin 25% 25 Gm/100 mL IV ONE (15:35)
--- NOTE | 2016-07-13 18:44 | NUR ---
Dialysis note: S/P catheter placement 2 1/2 hrs tx 2000 ml net UF Right catheter, dsg changed, sutures intact Hep B/C serologies pending Pls see DTR for VS details Qb 250 Heparin given O2 @ 2L via NC on during tx Tolerated tx, slept at intervals Catheter flushed, heparin dwelled and secured Stable condition at end of tx Report given to Peter CORTEZ
[2016-07-13] MEDS ORDERED: 0.9% Sodium Chloride 100 ML ONE (20:55)
[2016-07-14] VITALS (10 sets, daily range): BP systolic 101–119; BP diastolic 54–60; PULSE 71–94; RESP 16–20; O2SAT 92–98
--- NOTE | 2016-07-14 02:33 | NUR ---
Activity On initial assessment, patient stated pain at a 5/10 on pain scale. Pain medication administered. Patient sitting up in bed eating with no complaints of nausea. IJ site dressing has minimal to moderate sanguinous drainage. Patients bilateral calves appear swollen. Feet are floated with pillows. Patient resting comfortably post pain medication administration. Call light within reach. Care continues.
--- NOTE | 2016-07-14 07:46 | NUR ---
Dialysis Talked with Marcia front desk manager, and the plan is to hold this patient's morning vitamins until after dialysis due to risk of them dialyzing off. Will administered other medications.
[2016-07-14] MEDS: Dorzolamide 2% 10 mL Ophthalmic Solution BOTH_EYES SCH ×2 (07:55→20:47)
[2016-07-14] MEDS: Insulin GLARgine 100 Unit/mL Syringe SUBQ SCH (07:56)
[2016-07-14] MEDS: Insulin LISPRO 300 Unit/3 mL Inj SUBQ SCH ×4 (07:56→22:19)
[2016-07-14] MEDS: Fluticasone 250 mCg Inhaler INHALATION SCH ×2 (07:59→20:47)
[2016-07-14] MEDS: Arformoterol 15 mCg/2 mL Inhalation Solution INHALATION SCH ×2 (08:01→20:57)
[2016-07-14] MEDS: Lactulose 20 Gm/30 mL 30 mL Syrup PO SCH ×3 (08:30→20:52)
[2016-07-14] MEDS: MeTOProlol XL 25 mg ER24 Tablet PO SCH (08:30)
--- NOTE | 2016-07-14 09:18 | NUR ---
[facility] Signed @ 710AM
[2016-07-14 09:30] LABS: Magnesium 2.2 mg/dL (1.6-2.6)
--- NOTE | 2016-07-14 09:37 | PCM.PNNEPH ---
Subjective Date of Service Jul 14, 2016 Subjective Patient tolerated his first dialysis treatment yesterday without any problems. This morning he states he feels a bit better and denies any headache, chest pain , or shortness of breath. His blood pressure was 106/66 with a heart rate of 70. Labs pending at time of my dictation. Exam Vital Signs Vital Sign - Last Date Time Temp Pulse Resp B/P Pulse Ox O2 Delivery O2 Flow Rate FiO2 07/14/16 09:17 36.2 83 16 101/58 95 Room Air Intake and Output 07/13/16 07/13/16 07/14/16 Cumulative From/Thru 14:59 22:59 06:59 07/09/16 02:39 - 07/14/16 06:20 Intake Total 53 ml 619 ml 7459 ml Output Total 2000 ml 1900 ml 90991 ml Balance 53 ml -2000 ml -1281 ml -93306 ml Intake Oral 539 ml 4371 ml IV Total 53 ml 80 ml 2788 ml Packed Cells 300 ml Output Urine Total 1900 ml 63753 ml Urine/Stool Mix 12 ml Ultrafiltrate 2000 ml 2000 ml Other 5500 ml # Voids 7 15 # Bowel Movements 0 4 Exam Neck is supple without adenopathy, thyromegaly, or obvious distention. Lungs are clear to auscultation. Heart is irregularly irregular. Abdomen is distended with fluid wave and is semi-tense. Extremities showed some mild pitting edema HIS thighs bilaterally. Lab and Diagnostics Result Diagram: 07/13/16 0503 07/13/16 0503 X-Rays, CTs and MRIs IMPRESSION: 1. Localized airspace opacity within the inferior right upper lobe abutting the minor and major fissures persists since 2014, therefore suspicious for neoplasm rather than pneumonia. A smaller similar-appearing lesion within the superior segment of the left lower lobe is also unchanged. If clinically feasible and desired, consider CT guided lung biopsy for further evaluation. 2. Background apical predominant centrilobular emphysema. 3. Cardiomegaly as before, as well as small right and trace left bibasilar mobile pleural effusions. 4. Persistent incompletely visualized abdominal ascites is of uncertain etiology. Dictated by: John Spann M.D. on 07/09/2016 at 17:54 Approved by: John Spann M.D. on 07/09/2016 at 18:06 PROCEDURE: US ABDOMEN, LIMITED ([id number]) INDICATIONS: eval ascitic fluid status for paracentesis IMPRESSION: Moderate ascites. Volume sufficient for diagnostic and/or therapeutic paracentesis. Dictated by: Suhail Cavanaugh RRA Interpreted: Sylvain Chi MD on 07/09/2016 at 16:44 Transcribed by: LEATHA on 07/09/2016 at 16:44 Approved by: Sylvain Chi M.D. on 07/09/2016 at 16:56 PROCEDURE: CT KUB ([id number]) INDICATIONS: right flank plain IMPRESSION: 1. No evidence of nephrolithiasis or hydronephrosis. 2. Nodular cirrhotic liver with splenomegaly and ascites suggesting portal hypertension. 3. Infrarenal abdominal aortic aneurysm status post endovascular placement of an aortobiiliac stent graft redemonstrated. There is enlargement of the aneurysm sac compared to the prior study most likely reflecting an endoleak. Further evaluation be obtained with a CT angiogram. Dictated by: Jose Alfredo Mcpherson M.D. on 07/09/2016 at 9:07 Approved by: Jose Alfredo Mcpherson M.D. on 07/09/2016 at 9:39 ADDENDUM: Findings were discussed with Dr. Manzanares on 07/09/16 at 10:15 AM. Dictated by: Jose Alfredo Mcpherson M.D. on 07/09/2016 at 12:11 Approved by: Jose Alfredo Mcpherson M.D. 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 He dialyzes for second treatment today for 3 hours on a standard dialyzer, 3 potassium bath, 1200 of heparin to be given, will try to take 2 L as possible. And we will increase his for his third treatment tomorrow. I would strongly recommend scheduling him for a follow-up paracentesis the next 1-2 days. Refugio Sprague DO Jul 14, 2016 09:37
--- NOTE | 2016-07-14 09:58 | NUR ---
Off Unit Patient off unit to dialysis at 0920. Patient had breakfast and emptied bladder before leaving floor. Urinal in place between patient's legs because of his worry about having to go during dialysis. Saline locked, telemetry in place and tele notified of move. Marcia, user experience lead notified.
--- NOTE | 2016-07-14 12:23 | PCM.PNMED ---
Subjective Date of Service Jul 14, 2016 Subjective RIJ tunnelled HD cath placed and had HD yesterday Exam Vital Signs Vital Sign - Last Date Time Temp Pulse Resp B/P Pulse Ox O2 Delivery O2 Flow Rate FiO2 07/14/16 10:10 71 07/14/16 09:17 36.2 16 101/58 95 Room Air Intake and Output 07/13/16 07/13/16 07/14/16 Cumulative From/Thru 15:00 23:00 07:00 07/09/16 02:39 - 07/14/16 06:20 Intake Total 53 ml 619 ml 7459 ml Output Total 2000 ml 1900 ml 09198 ml Balance 53 ml -2000 ml -1281 ml -13793 ml Intake Oral 539 ml 4371 ml IV Total 53 ml 80 ml 2788 ml Packed Cells 300 ml Output Urine Total 1900 ml 33809 ml Urine/Stool Mix 12 ml Ultrafiltrate 2000 ml 2000 ml Other 5500 ml # Voids 7 15 # Bowel Movements 0 4 Exam General: NAD HEENT: bruising over the face,RIJ tunnelled HD cath in place Lungs: Clear to auscultation anteriorly negative for wheezing Heart: RRR, GII/ systolic murmur at LLSB neuro: No focal deficits psych: neg for anxiety and agitation Extremities: Remarkable for 2+ pitting edema with dark hemosiderosis Skin: Warm and dry, bruising over both arms left-sided facial bruising, long surgical scar on left medial leg all the way Abdomen: Swollen, abdomen appears worse than yesterday, bowel sounds are present MSK: R L LE weaker, no right flank pain today on palpation vasc: pedal pulses palpable IVs and Medications Medications Reviewed: Medications were reviewed in detail Lab and Diagnostics Result Diagram: 07/13/16 0503 07/14/16 0900 X-Rays, CTs and MRIs IMPRESSION: 1. Localized airspace opacity within the inferior right upper lobe abutting the minor and major fissures persists since 2014, therefore suspicious for neoplasm rather than pneumonia. A smaller similar-appearing lesion within the superior segment of the left lower lobe is also unchanged. If clinically feasible and desired, consider CT guided lung biopsy for further evaluation. 2. Background apical predominant centrilobular emphysema. 3. Cardiomegaly as before, as well as small right and trace left bibasilar mobile pleural effusions. 4. Persistent incompletely visualized abdominal ascites is of uncertain etiology. Dictated by: John Spann M.D. on 07/09/2016 at 17:54 Approved by: John Spann M.D. on 07/09/2016 at 18:06 PROCEDURE: US ABDOMEN, LIMITED ([id number]) INDICATIONS: eval ascitic fluid status for paracentesis IMPRESSION: Moderate ascites. Volume sufficient for diagnostic and/or therapeutic paracentesis. Dictated by: Suhail Cavanaugh RRA Interpreted: Sylvain Chi MD on 07/09/2016 at 16:44 Transcribed by: LEATHA on 07/09/2016 at 16:44 Approved by: Sylvain Chi M.D. on 07/09/2016 at 16:56 PROCEDURE: CT KUB ([id number]) INDICATIONS: right flank plain IMPRESSION: 1. No evidence of nephrolithiasis or hydronephrosis. 2. Nodular cirrhotic liver with splenomegaly and ascites suggesting portal hypertension. 3. Infrarenal abdominal aortic aneurysm status post endovascular placement of an aortobiiliac stent graft redemonstrated. There is enlargement of the aneurysm sac compared to the prior study most likely reflecting an endoleak. Further evaluation be obtained with a CT angiogram. Dictated by: Jose Alfredo Mcpherson M.D. on 07/09/2016 at 9:07 Approved by: Jose Alfredo Mcpherson M.D. on 07/09/2016 at 9:39 ADDENDUM: Findings were discussed with Dr. Manzanares on 07/09/16 at 10:15 AM. Dictated by: Jose Alfredo Mcpherson M.D. on 07/09/2016 at 12:11 Approved by: Jose Alfredo Mcpherson M.D. on 07/09/2016 at 12:11 Assessment & Plan 86-year-old male with chronic right-sided heart failure, chronic atrial fibrillation, pulmonary hypertension and coronary artery disease, anasarca is admitted for acute right flank pain of unknown etiology # ESRD/Stage IV chronic kidney disease: multifactorial: heart failure, hepatorenal syndrome, diabetes, hypertension -- Nephrology is consulted as they have known the patient -- They have seen the patient, he will get tunneled catheter today 07/13 and dialysis later -- We will appreciate support and recommendations from nephrology and palliative care -- Continue IV lasix 100 mg Q 12hr. Metolazone 5 mg PO daily. Decrease metoprolol dosage. Add midodrine 5 mg TID. Fluid restriction 1 L per day, 2g Na per day. # Hepatic encephalopathy : improving -- Ammonia levels were ordered and came back elevated -- Lactulose by mouth 20 mg 3 times a day, titrate to 3-4 bowel movements per day # Acute Hypokalemia -- repleted with 20 meq IV K and 20 meq PO. -- Continue to monitor. # Hyponatremia: Likely due to liver disease:resolved -- 2 g Sodium restriction, 1000 cc per day fluid restriction # Anemia of chronic disease: -- Patient is given 1 unit of blood on 07/10. H&H remain stable -- Patient is started on iron supplementation --We will continue to monitor daily labs, discuss anaresap with nephrology # right flank and thoracic pain: Ruled out AAA graft endoleak, rib fractures. Pain may be coming from a sites or a lung mass: Pain Resolved -- Pain control with morphine IV -- X-ray of ribs, CT of chest ( prior imaging showed suspicion for lung malignancy, CT of chest showed concern for lung mass on 07/09 -- Contact patient's surgeon Dr. Refugio campbell at [facility], send them the CT abd for comparison: This has been done and this vascular surgeon feels the endoleak has been stable, aneurysm size only increased by 3-4 mm and he does not feel the pain from this would refer to right flank and right thoracic. He sees no need for repair of this at this time. We appreciate his time and recommendations -- Ordered paracentesis via IR on 07/10/16: patient consented, no concern for exudates based on light's criteria -- Patient no longer complains about right flank pain on 07/12/16 # goals of care: Patient is a very complex patient with several serious comorbidities. He is a current DNR/DNI -- We consulted palliative care to help patient understands goals of care. We appreciate the recommendations very much -- Patient is agreeable to the discharge to SNF # Concern for lung mass: -- CT of chest is ordered as above: Findings are remarkable for a lung mass. Patient is aware. -- Patient will need outpatient bronchoscopy and/or dedicated CT with contrast after his dialysis initiation is taken care of. # Atrial fibrillation:, Chronic -- Patient is not currently anticoagulated because of reading risk and SDH -- Continue to monitor -- Give The patient current rate control home medications # Hypertension, chronic -- We will hold nephrotoxic home medications # hyperlipidemia, chronic -- Continue medications # Diabetes, chronic: Patient has insulin 12 units every morning if blood glucose greater than 150 -- Patient's home insulin as ordered along with low sliding scale Disposition: D/C to SNF in 1-2 days. Resuscitation Status: DNR/DNI:Do Not Resuscitate/Intubate Limited Interventions: Medications and IV Fluid Wade Rod MD Jul 14, 2016 12:23 Wade Rod MD Jul 14, 2016 12:23
--- NOTE | 2016-07-14 13:21 | NUR ---
Dialysis note Second HD tx X 3.5 hrs. 2000ml net UF removed VSS thru tx. See DTR for complete vitals. QB 300 thru new R tunn catheter Dsg changed for small blood oozing/ no s/s of infection Catheter dwelled with 1000/1 U Heparin and secured Report given and pt returned to floor stable.
[2016-07-14] MEDS: FUROSEMIDE IVPUSH SCH ×2 (13:58→20:30)
[2016-07-14] MEDS: DEXTROSE 5% IVPUSH SCH ×2 (13:58→20:30)
[2016-07-14] MEDS: Ascorbic Acid 500 mg Tablet PO SCH (13:59)
--- NOTE | 2016-07-14 14:16 | NUR ---
Back to 1003 Patient back to room via bed from dialysis. Telemetry in place and notified tech. AM medications that were held due to dialysis were given. Patient reports "half and half" pain on the right back rid area. Refused Tylenol at this time and K-pad in place now.VSS. Hourly rounding continues.
--- NOTE | 2016-07-14 15:17 | PATH ---
SURGICAL PATHOLOGY Attending Physician:Saman Kessler CASE STATUS: Signed Out PATIENT NAME: XIOMARA CONNORS PID: [id number] : 1930 DATE COLLECTED:07/10/2016 00:00 SPECIMEN: Peritoneal fluid CLINICAL HISTORY: Peritoneal fluid No ICD-10 code given FINAL DIAGNOSIS: PERITONEAL FLUID CYTOLOGY SPECIMEN (CELL BLOCK, THINPREP, AND CYTOSPIN): NEGATIVE FOR MALIGNANT CELLS. CELLS PRESENT INCLUDE BENIGN MESOTHELIAL CELLS AND LYMPHOCYTES. ICD10 R18.8 GROSS DESCRIPTION: Received fresh on 07/13/2016 is approximately 50 cc of cloudy pink fluid. Prepared are one cell block, one cytospin, and one ThinPrep slide. vo/hsk ICD-9 CODES: CPT CODES: 1: 90197, 03539, 49922 Electronically Signed Out Johnnie Sanders MD [facility] [address] [place] [address] Technical component performed at [facility], [facility] [address], [place], [address]
[2016-07-15] VITALS (8 sets, daily range): BP systolic 105–120; BP diastolic 52–69; PULSE 69–90; RESP 16–19; O2SAT 93–100
--- NOTE | 2016-07-15 02:05 | NUR ---
Activity Pt up frequently to use the urinal. He does not use his call light despite frequent reminders. Bed Alarm activated. WIll cont to encourage the use of call light for fall prevention
[2016-07-15] MEDS ORDERED: Arformoterol 15 mCg/2 mL Inhalation Solution ONE (07:34)
[2016-07-15] MEDS: Insulin LISPRO 300 Unit/3 mL Inj SUBQ SCH ×4 (08:00→21:58)
[2016-07-15] MEDS: Fluticasone 250 mCg Inhaler INHALATION SCH ×3 (08:30→20:13)
[2016-07-15] MEDS: FUROSEMIDE IVPUSH SCH ×2 (08:30→22:31)
[2016-07-15] MEDS: DEXTROSE 5% IVPUSH SCH ×2 (08:30→22:31)
[2016-07-15] MEDS: Dorzolamide 2% 10 mL Ophthalmic Solution BOTH_EYES SCH ×2 (08:52→21:40)
--- NOTE | 2016-07-15 11:14 | PCM.PNMED ---
Subjective Date of Service Jul 15, 2016 Subjective tolerating dialysis. Feeling better overall. Exam Vital Signs Vital Sign - Last Date Time Temp Pulse Resp B/P Pulse Ox O2 Delivery O2 Flow Rate FiO2 07/15/16 10:19 73 07/15/16 08:57 36.9 16 120/69 93 Room Air Intake and Output 07/14/16 07/14/16 07/15/16 Cumulative From/Thru 15:00 23:00 07:00 07/09/16 02:39 - 07/15/16 06:07 Intake Total 705 ml 150 ml 8314 ml Output Total 2100 ml 600 ml 325 ml 34684 ml Balance -2100 ml 105 ml -175 ml -52285 ml Intake Oral 625 ml 150 ml 5146 ml IV Total 80 ml 2868 ml Packed Cells 300 ml Output Urine Total 100 ml 600 ml 325 ml 39097 ml Urine/Stool Mix 12 ml Ultrafiltrate 2000 ml 4000 ml Other 5500 ml # Voids 15 # Bowel Movements 0 0 4 Exam HEENT: bruising over the face,RIJ tunnelled HD cath in place Lungs: Clear to auscultation anteriorly negative for wheezing Heart: RRR, GII/ systolic murmur at LLSB neuro: No focal deficits psych: neg for anxiety and agitation Extremities: Remarkable for 2+ pitting edema with dark hemosiderosis Skin: Warm and dry, bruising over both arms left-sided facial bruising, long surgical scar on left medial leg all the way Abdomen: Distended but soft bowel sounds are present MSK: R L LE weaker, no right flank pain today on palpation vasc: pedal pulses palpable IVs and Medications Medications Reviewed: Medications were reviewed in detail Lab and Diagnostics Result Diagram: 07/13/16 0503 07/14/16 0900 X-Rays, CTs and MRIs IMPRESSION: 1. Localized airspace opacity within the inferior right upper lobe abutting the minor and major fissures persists since 2014, therefore suspicious for neoplasm rather than pneumonia. A smaller similar-appearing lesion within the superior segment of the left lower lobe is also unchanged. If clinically feasible and desired, consider CT guided lung biopsy for further evaluation. 2. Background apical predominant centrilobular emphysema. 3. Cardiomegaly as before, as well as small right and trace left bibasilar mobile pleural effusions. 4. Persistent incompletely visualized abdominal ascites is of uncertain etiology. Dictated by: John Spann M.D. on 07/09/2016 at 17:54 Approved by: oJhn Spann M.D. on 07/09/2016 at 18:06 PROCEDURE: US ABDOMEN, LIMITED ([id number]) INDICATIONS: eval ascitic fluid status for paracentesis IMPRESSION: Moderate ascites. Volume sufficient for diagnostic and/or therapeutic paracentesis. Dictated by: Suhail Cavanaugh RR Interpreted: Sylvain Chi MD on 07/09/2016 at 16:44 Transcribed by: LEATHA on 07/09/2016 at 16:44 Approved by: Sylvain Chi M.D. on 07/09/2016 at 16:56 PROCEDURE: CT KUB ([id number]) INDICATIONS: right flank plain IMPRESSION: 1. No evidence of nephrolithiasis or hydronephrosis. 2. Nodular cirrhotic liver with splenomegaly and ascites suggesting portal hypertension. 3. Infrarenal abdominal aortic aneurysm status post endovascular placement of an aortobiiliac stent graft redemonstrated. There is enlargement of the aneurysm sac compared to the prior study most likely reflecting an endoleak. Further evaluation be obtained with a CT angiogram. Dictated by: Jose Alfredo Mcpherson M.D. on 07/09/2016 at 9:07 Approved by: Jose Alfredo Mcpherson M.D. on 07/09/2016 at 9:39 ADDENDUM: Findings were discussed with Dr. Manzanares on 07/09/16 at 10:15 AM. Dictated by: Jose Alfredo Mcpherson M.D. on 07/09/2016 at 12:11 Approved by: Jose Alfredo Mcpherson M.D. on 07/09/2016 at 12:11 Assessment & Plan 86-year-old male with chronic right-sided heart failure, chronic atrial fibrillation, pulmonary hypertension and coronary artery disease, anasarca is admitted for acute right flank pain of unknown etiology # ESRD: multifactorial: heart failure, hepatorenal syndrome, diabetes, hypertension -- Nephrology is consulted as they have known the patient -tunneled catheter placed 07/13 and dialysis initiated -- We will appreciate support and recommendations from nephrology and palliative care -- Continue IV lasix 100 mg Q 12hr. Metolazone 5 mg PO daily. Decrease metoprolol dosage. Add midodrine 5 mg TID. Fluid restriction 1 L per day, 2g Na per day. # Hepatic encephalopathy : Resolved -- Ammonia levels were elevated -- Lactulose by mouth 20 mg 3 times a day, titrate to 3-4 bowel movements per day # Acute Hypokalemia -- repleted -- Continue to monitor. # Hyponatremia: Likely due to liver disease:resolved -- 2 g Sodium restriction, 1000 cc per day fluid restriction # Anemia of chronic disease: -- Patient is given 1 unit of blood on 07/10. H&H remain stable -- Patient is started on iron supplementation --We will continue to monitor daily labs, discuss anaresap with nephrology # right flank and thoracic pain: Ruled out AAA graft endoleak, rib fractures. Pain may be coming from a sites or a lung mass: Pain Resolved -- Pain control with morphine IV -- X-ray of ribs, CT of chest ( prior imaging showed suspicion for lung malignancy, CT of chest showed concern for lung mass on 07/09 -- Contact patient's surgeon Dr. Refugio campbell at [facility], send them the CT abd for comparison: This has been done and this vascular surgeon feels the endoleak has been stable, aneurysm size only increased by 3-4 mm and he does not feel the pain from this would refer to right flank and right thoracic. He sees no need for repair of this at this time. We appreciate his time and recommendations -- Ordered paracentesis via IR on 07/10/16: patient consented, no concern for exudates based on light's criteria -- Patient no longer complains about right flank pain as of 07/12/16 # goals of care: Patient is a very complex patient with several serious comorbidities. He is a current DNR/DNI -- We consulted palliative care to help patient understands goals of care. We appreciate the recommendations very much -- Patient is agreeable to the discharge to SNF # Concern for lung mass: -- CT of chest is ordered as above: Findings are remarkable for a lung mass. Patient is aware. -- Patient will need outpatient bronchoscopy and/or dedicated CT with contrast after his dialysis initiation is taken care of. # Atrial fibrillation:, Chronic -- Patient is not currently anticoagulated because of reading risk and SDH -- Continue to monitor -- Give The patient current rate control home medications # Hypertension, chronic -- We will hold nephrotoxic home medications # hyperlipidemia, chronic -- Continue medications # Diabetes, chronic: Patient has insulin 12 units every morning if blood glucose greater than 150 -- Patient's home insulin as ordered along with low sliding scale Disposition: D/C to SNF in 1-2 days. Resuscitation Status: DNR/DNI:Do Not Resuscitate/Intubate Limited Interventions: Medications and IV Fluid Wade Rod MD Jul 15, 2016 11:14
--- NOTE | 2016-07-15 13:47 | NUR ---
Dialysis note 3rd HD tx X 4 hrs. 1500ml net UF removed QB 350 thru R tunn catheter VSS thru tx. See DTR for complete vitals. Pt has K pad on bed for hip pain which worked well Rested fairly comfortably. Catheter dwelled with 1000/1 U Heparin and secured Report given and pt returned to floor stable.
--- NOTE | 2016-07-15 14:23 | NUR ---
Social Work- Continued D/C Planning Data: EMR reviewed. Pt is on day 4 of hospitalization for right flank pain, acute kidney injury per H&P. Nephrology is following pt. Pt is not ready for discharge at this time, potentially tomorrow pending clinical course. Pt will require intermediate accountant outpt hemodialysis at discharge. Pt has tunnel cath placed. Pt to complete dialysis at [facility]. UNIFORM ROOM ATTENDANT working with Keila at the [facility] regarding coordination of service. T/C to Keila who is working to coordinate with Nephrology and will determine pt's dialysis schedule. Keila continues to coordinate and SW awaits update call from Keila regarding this. UNIFORM ROOM ATTENDANT met with pt at bedside regarding pt's SNF choice. Pt's family was able to tour both facilities and pt and family have determined that [facility] is pt's first choice. T/C to Caren, admissions at [facility], regarding pt's choice. Caren is agreeable to accepting pt at discharge with Dew to follow. T/C to Rama at [facility] regarding pt's choice of facility. Pt to discharge to [facility] with Dew to follow and outpt HD at [facility] pending schedule coordination. Pt and family updated and agreeable to plan. SW will continue to follow. Assessment: Pt for whom SNF is medically necessary Plan: Pt to discharge to [facility] with Dew to follow and outpt HD at [facility] pending schedule coordination. Pt and family updated and agreeable to plan. SW will continue to follow. JANICE Park Addendum: 07/15/16 at 1521 by NILESH KATZ T/C from Keila at the [facility]. Per Nephrology, pt is not medically stable to discharge at this time and he anticipates discharge in 1-2 more days putting the discharge timeline to Wednesday. Pt will dialyze Wednesday and then discharge to [facility]. On July 20, pt's initial appointment has been scheduled for 1030 am for new pt orientation. Pt will dialyze from 12-4 pm on WednesdayJuly 20. The dialysis schedule will then be communicated to pt and [facility] at that time. SW will continue to follow. JANICE Park
[2016-07-15] MEDS: Lactulose 20 Gm/30 mL 30 mL Syrup PO SCH ×2 (14:30→14:47)
--- NOTE | 2016-07-15 14:39 | PCM.PNNEPH ---
Subjective Date of Service Jul 15, 2016 Subjective Patient continues to improve slowly. He states that his breathing is considerably better and his appetite is also on the SWELLING. He denies any headache, chest pain, or diarrhea. Exam Vital Signs Vital Sign - Last Date Time Temp Pulse Resp B/P Pulse Ox O2 Delivery O2 Flow Rate FiO2 07/15/16 10:19 73 07/15/16 08:57 36.9 16 120/69 93 Room Air Intake and Output 07/14/16 07/14/16 07/15/16 Cumulative From/Thru 15:00 23:00 07:00 07/09/16 02:39 - 07/15/16 06:07 Intake Total 705 ml 150 ml 8314 ml Output Total 2100 ml 600 ml 325 ml 94384 ml Balance -2100 ml 105 ml -175 ml -18477 ml Intake Oral 625 ml 150 ml 5146 ml IV Total 80 ml 2868 ml Packed Cells 300 ml Output Urine Total 100 ml 600 ml 325 ml 64438 ml Urine/Stool Mix 12 ml Ultrafiltrate 2000 ml 4000 ml Other 5500 ml # Voids 15 # Bowel Movements 0 0 4 Exam Neck is supple without adenopathy, thyromegaly, or jugular venous distention. Lungs were clear to auscultation. Diminished in the bases. Heart was irregularly irregular. Abdomen soft without any tenderness rebound guarding masses or hepatosplenomegaly. Extremities have slight amount of edema which is markedly improved. Lab and Diagnostics Result Diagram: 07/13/16 0503 07/14/16 0900 X-Rays, CTs and MRIs IMPRESSION: 1. Localized airspace opacity within the inferior right upper lobe abutting the minor and major fissures persists since 2014, therefore suspicious for neoplasm rather than pneumonia. A smaller similar-appearing lesion within the superior segment of the left lower lobe is also unchanged. If clinically feasible and desired, consider CT guided lung biopsy for further evaluation. 2. Background apical predominant centrilobular emphysema. 3. Cardiomegaly as before, as well as small right and trace left bibasilar mobile pleural effusions. 4. Persistent incompletely visualized abdominal ascites is of uncertain etiology. Dictated by: John Spann M.D. on 07/09/2016 at 17:54 Approved by: John Spann M.D. on 07/09/2016 at 18:06 PROCEDURE: US ABDOMEN, LIMITED ([id number]) INDICATIONS: eval ascitic fluid status for paracentesis IMPRESSION: Moderate ascites. Volume sufficient for diagnostic and/or therapeutic paracentesis. Dictated by: Suhail Cavanaugh RRA Interpreted: Sylvain Chi MD on 07/09/2016 at 16:44 Transcribed by: LEATHA on 07/09/2016 at 16:44 Approved by: Sylvain hCi M.D. on 07/09/2016 at 16:56 PROCEDURE: CT KUB ([id number]) INDICATIONS: right flank plain IMPRESSION: 1. No evidence of nephrolithiasis or hydronephrosis. 2. Nodular cirrhotic liver with splenomegaly and ascites suggesting portal hypertension. 3. Infrarenal abdominal aortic aneurysm status post endovascular placement of an aortobiiliac stent graft redemonstrated. There is enlargement of the aneurysm sac compared to the prior study most likely reflecting an endoleak. Further evaluation be obtained with a CT angiogram. Dictated by: Jose Alfredo Mcpherson M.D. on 07/09/2016 at 9:07 Approved by: Jose Alfredo Mcpherson M.D. on 07/09/2016 at 9:39 ADDENDUM: Findings were discussed with Dr. Manzanares on 07/09/16 at 10:15 AM. Dictated by: Jose Alfredo Mcpherson M.D. on 07/09/2016 at 12:11 Approved by: Jose Alfredo Mcpherson M.D. 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 Making arrangements for his outpatient dialysis. Refugio Sprague DO Jul 15, 2016 14:39
[2016-07-15] MEDS: Insulin GLARgine 100 Unit/mL Syringe SUBQ SCH (14:47)
[2016-07-15] MEDS: MeTOProlol XL 25 mg ER24 Tablet PO SCH (14:48)
[2016-07-15] MEDS: Ascorbic Acid 500 mg Tablet PO SCH (14:48)
--- NOTE | 2016-07-15 18:36 | NUR ---
Shift note Pt went to dialysis at 0900 and returned at 1400. Telemetry did call during this period, as pt had 5 beat run of VTach, asymptomatic. Upon return pt has been doing well, A&Ox3 and very pleasant man. It has been a pleasure caring for him today.
[2016-07-15] MEDS: Arformoterol 15 mCg/2 mL Inhalation Solution INHALATION SCH ×2 (20:30→21:06)
[2016-07-16 00:10] VITALS: BP 119/74; PULSE 70; RESP 18; O2SAT 96
--- NOTE | 2016-07-16 03:35 | NUR ---
Activity Pt. used bedside commode/urinal for voiding needs. Pt. is using k-pad for pain. Will continue to monitor.
[2016-07-16 05:15] VITALS: BP 105/60; PULSE 69; RESP 19; O2SAT 93
[2016-07-16 05:17] VITALS: PULSE 82
[2016-07-16 05:43] LABS: BASOPHILS % (AUTO) 0.3 % (0-3); MONOCYTES % (AUTO) 11.2 % (4-12); Mean Corpuscular Hemoglobin 27.2 pg (27.0-35.0); Mean Corpuscular Volume 92.5 fL (81-100); NEUTROPHILS % (AUTO) 69.7 % (40-74); Platelet Count 110 bil/L (150-400)
[2016-07-16] MEDS: Insulin LISPRO 300 Unit/3 mL Inj SUBQ SCH ×2 (07:38→12:29)
[2016-07-16 08:00] VITALS: PULSE 67
[2016-07-16] MEDS: Arformoterol 15 mCg/2 mL Inhalation Solution INHALATION SCH (08:37)
[2016-07-16 08:39] VITALS: PULSE 75; RESP 18; O2SAT 90
[2016-07-16] MEDS: Dorzolamide 2% 10 mL Ophthalmic Solution BOTH_EYES SCH (09:00)
[2016-07-16] MEDS: Ascorbic Acid 500 mg Tablet PO SCH (09:03)
[2016-07-16] MEDS: MeTOProlol XL 25 mg ER24 Tablet PO SCH (09:03)
[2016-07-16] MEDS: Fluticasone 250 mCg Inhaler INHALATION SCH (09:03)
[2016-07-16] MEDS: Insulin GLARgine 100 Unit/mL Syringe SUBQ SCH (09:11)
[2016-07-16 10:01] VITALS: BP 100/53; PULSE 79; RESP 16; O2SAT 93
[2016-07-16] MEDS ORDERED: 0.9% Sodium Chloride 100 ML ONE (10:12)
--- NOTE | 2016-07-16 10:14 | NUR ---
Social Work- Readiness for Discharge Data: EMR reviewed. Pt is on day 7 of hospitalization for right flank pain, acute kidney injury per H&P. Nephrology is following pt. Pt is ready for discharge today versus Wednesday per Hospitalist this AM in multidisciplinary rounds. TRANSPORTATION DRIVER awaiting discharge orders. Per RN, since pt will discharge today [facility] will accept pt for orientation at 9 am tomorrow 07/17 and treatment from 12-4 pm. T/C to Caren, admissions at [facility], regarding pt's schedule, Caren agreeable. Pt's dialysis schedule will likely be -W- and will be communicated to pt at first appointment. TRANSPORTATION DRIVER spoke with pt at bedside regarding discharge, pt agreeable. Pt has updated his brother Elijah of discharge today, requested that TRANSPORTATION DRIVER call his son Apolinar [phone] regarding discharge plan. T/C to Apolinar, left message requesting return call with any questions regarding discharge. Pt to discharge to [facility] with Dew to follow and outpt HD at [facility] beginning 07/17/16. Pt and family updated and agreeable to plan. SW will continue to follow. Assessment: Pt for whom SNF is medically necessary Plan: Pt to discharge to [facility] with Dew to follow and outpt HD at [facility] beginning at 9 am 07/17/16. Pt and family updated and agreeable to plan. SW will continue to follow. JANICE Park Addendum: 07/16/16 at 1134 by NILESH PENA T/C from Keila LAM at [facility], stating that pt does not have to arrive until 1030 tomorrow for dialysis. Caren updated and agreeable to plan. UR Specialist to fax orders and create packet. Caren coordinating transport to [facility] via wheelchair van at 1300. Pt and RN updated and agreeable to plan. GENARO will continue to follow. JANICE Park
[2016-07-16] MEDS: FUROSEMIDE IVPUSH SCH (10:43)
[2016-07-16] MEDS: DEXTROSE 5% IVPUSH SCH (10:43)
--- NOTE | 2016-07-16 11:06 | PCM.DIMED ---
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 Pain may be coming from ascites or a lung mass: Pain Resolved # Concern for lung mass: # Atrial fibrillation:, Chronic # Hypertension, chronic # hyperlipidemia, chronic # Diabetes, chronic: Diet Discharge Diet: Diabetic, Renal Diet Activity Discharge Activity: Other (continue physical therapy at [facility] facility) Call your provider Call your provider for: Fever or Chills, Shortness of breath, Bleeding, Chest pain, Vomitting, Excessive diarrhea, Weakness (unilateral) Patient Instructions Patient Instructions You were hospitalized due to flank pain. Cause of pain unclear but the pain resolved now. Pain can be due to ascitic fluid distention or lung nodule. Underwent paracentesis.You were noted to have end-stage renal disease due to progression of CKD. You are initiated on dialysis. Please continue dialysis 3 times a week. Please come back for dialysis tomorrow 07/17 to [facility] dialysis center. Please continue torsemide for diuresis as prescribed. Please continue lactulose and titrate to 2-3 bowel movements a day. Follow-up Provider: Lam Duron MD Follow-up with PCP in: 1 week (1 week after discharge from [facility] facility) Provider: Refugio Sprague DO Follow-up in: 1 week (tomorrow 07/17 at [facility] dialysis center) Mid-level Provider (F9): Aleksander Bal DO Follow-up with Mid-level in: 1 week Cardiac Rehab: 2 weeks Wade Rod MD Jul 16, 2016 11:06
[2016-07-16] MEDS ORDERED: TORS20TA PO (11:11)
[2016-07-16] MEDS ORDERED: MIDO5TAB PO (11:11)
[2016-07-16] MEDS ORDERED: TAMS0.4C98 PO (11:12)
--- NOTE | 2016-07-16 11:45 | NUR ---
Faxed orders to [facility] also placed copy in chart and spoke with Caren they will transport the patient at 1300. Updated METABOLIC SPECIALIST & RN
--- NOTE | 2016-07-16 12:12 | NUR ---
Social Work- Discharge Data: EMR reviewed. Pt to discharge today to [facility]. GENARO spoke with Caren, admissions at [facility], who is agreeable to pt arriving today. UR Specialist created packet and faxed orders. COLLEGE RECRUITER spoke with pt at bedside regarding discharge plan, pt agreeable to discharge today. GENARO updated pt's contact people, brother Elijah and son Apolinar. Caren coordinated transportation via wheelchair van for 1300. RN, UC, pt/family, and [facility] all updated and agreeable to plan. Assessment: Pt for whom SNF is medically necessary Plan: Pt to discharge to [facility] with Dew to follow, transport via wheelchair van at 1300. RN, UC, pt/family, and [facility] all updated and agreeable to plan. JANICE Park
--- NOTE | 2016-07-16 12:37 | PCM.DC.MED ---
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 Pain may be coming from ascites or a lung mass: Pain Resolved # Concern for lung mass: # Atrial fibrillation:, Chronic # Hypertension, chronic # hyperlipidemia, chronic # Diabetes, chronic: Consultations Nephrology Dr. Sprague Procedures XRay, CTs & MRIs IMPRESSION: 1. Localized airspace opacity within the inferior right upper lobe abutting the minor and major fissures persists since 2014, therefore suspicious for neoplasm rather than pneumonia. A smaller similar-appearing lesion within the superior segment of the left lower lobe is also unchanged. If clinically feasible and desired, consider CT guided lung biopsy for further evaluation. 2. Background apical predominant centrilobular emphysema. 3. Cardiomegaly as before, as well as small right and trace left bibasilar mobile pleural effusions. 4. Persistent incompletely visualized abdominal ascites is of uncertain etiology. Dictated by: John Spann M.D. on 07/09/2016 at 17:54 Approved by: John Spann M.D. on 07/09/2016 at 18:06 PROCEDURE: US ABDOMEN, LIMITED ([id number]) INDICATIONS: eval ascitic fluid status for paracentesis IMPRESSION: Moderate ascites. Volume sufficient for diagnostic and/or therapeutic paracentesis. Dictated by: Suhail CHAVARRIA Interpreted: Sylvain Chi MD on 07/09/2016 at 16:44 Transcribed by: LEATHA on 07/09/2016 at 16:44 Approved by: Sylvain Chi M.D. on 07/09/2016 at 16:56 PROCEDURE: CT KUB ([id number]) INDICATIONS: right flank plain IMPRESSION: 1. No evidence of nephrolithiasis or hydronephrosis. 2. Nodular cirrhotic liver with splenomegaly and ascites suggesting portal hypertension. 3. Infrarenal abdominal aortic aneurysm status post endovascular placement of an aortobiiliac stent graft redemonstrated. There is enlargement of the aneurysm sac compared to the prior study most likely reflecting an endoleak. Further evaluation be obtained with a CT angiogram. Dictated by: Jose Alfredo Mcpherson M.D. on 07/09/2016 at 9:07 Approved by: Jose Alfredo Mcpherson M.D. on 07/09/2016 at 9:39 ADDENDUM: Findings were discussed with Dr. Manzanares on 07/09/16 at 10:15 AM. Dictated by: Jose Alfredo Mcpherson M.D. on 07/09/2016 at 12:11 Approved by: Jose Alfredo Mcpherson M.D. on 07/09/2016 at 12:11 Brief History per History of present illness Patient is a pleasant 86-year-old white male with systolic heart failure, atrial ablation, chronic kidney disease, hypertension, type II diabetes, COPD, CAD status post CABG, status post a AAA repair, and liver cirrhosis is presenting to the ER with right flank pain patient has had multiple hospitalizations due to CHF exacerbation cardiorenal syndrome in the past he was had a recent hospitalization on June 02 and was discharged on June 09. It appears that the last admission was for acute on chronic anasarca and portal hypertension. Patient states that he had his first round of paracentesis at the time. He also states that now edema building up in his abdominal area, groin area and both legs. However he does not complain of any abdominal pain or pressure sensation or respiratory distress outside of his norm, he complains of right flank pain. He also tells me that he fell a couple days ago at home when home care health were trying to teach him how to walk with a cane but he is adamant that his right flank pain is not because of that incident even though they both started on the same date. He does not seem to recall his doctor's names very well, kept calling his primary care nurse practitioner Dr. ivory, also called Dr. cope, dr ivory. He recalls meeting with Dr. Keisha Sprague during his previous hospitalization and states that he did not want to undergo dialysis. He did meet with his needlemaker Dr. cope couple of weeks ago and currently says that he is considering dialysis. At one point he stated that Dr. Noel was his PCP.. I have reviewed his primary care provider's notes regarding hospice and dialysis options, and back and asked patient about this and he claimed no knowledge of hospice discussion. In the ER patient had a lipase level of 123 normal is 13-60. Abdominal CT KUB showed no stones, positive for diverticulosis abdominal aortic aneurysm aortoiliac stent graft, anasarca, cirrhotic liver with ascites. However on up- to-date from the radiology, I was told that patient has a proximal endoleak from the aneurysm and the aneurysmal sac has grown considerably since his last scan. His hemoglobin was 8.3 BUN was 137 creatinine was 3.45 glucose was 186 bili was elevated at 1.6 sodium was low at 128. Off note an echocardiogram that was performed in 05/05/16 showed 45-50% ejection fraction increased right ventricular dilation increases and severe pulmonary hypertension with pressures of 66 mmHg. Hospital Course 86-year-old male with chronic right-sided heart failure, chronic atrial fibrillation, pulmonary hypertension and coronary artery disease, anasarca is admitted for acute right flank pain of unknown etiology # ESRD: multifactorial: Advanced heart failure, hepatorenal syndrome, diabetes, hypertension -tunneled catheter placed 07/13 and dialysis initiated, received dialysis 3 times. Please continue dialysis 3 times a week. Next dialysis on 07/17 at [facility] -- Initially treated with IV lasix 100 mg Q 12hr. Metolazone 5 mg PO daily. Discontinue Lasix and discharged him on torsemide 20 mg by mouth twice a day for his ascites. Decrease metoprolol dosage. Added midodrine 5 mg TID. Continue spironolactone [address] Sprague., Discontinued terazosin, replace it with Flomax discontinue chlorthalidone # Hepatic encephalopathy : Resolved -- Ammonia levels were initially elevated -- Lactulose by mouth 20 mg 3 times a day, titrate to 3-4 bowel movements per day #Cirrhosis with hyperbilirubinemia -Ultrasound consistent with cirrhosis -Possibly due to cardiac cirrhosis -Total bilirubin 2.1 upon discharge # Acute Hypokalemia -- repleted -- Continue to monitor. # Hyponatremia: Likely due to liver disease:resolved # Anemia of chronic disease: -- Patient is given 1 unit of blood on 07/10. H&H remain stable -- Patient is started on iron supplementation # right flank and thoracic pain: Ruled out AAA graft endoleak, rib fractures. Pain may be coming from a sites or a lung mass: Pain Resolved -- Pain controlled -- X-ray of ribs, CT of chest ( prior imaging showed suspicion for lung malignancy, CT of chest showed concern for lung mass on 07/09 -- Contact patient's surgeon Dr. Refugio campbell at [facility], send them the CT abd for comparison: This has been done and this vascular surgeon feels the endoleak has been stable, aneurysm size only increased by 3-4 mm and he does not feel the pain from this would refer to right flank and right thoracic. He sees no need for repair of this at this time. We appreciate his time and recommendations -- Ordered paracentesis via IR on 07/10/16: patient consented, no concern for exudates based on light's criteria. Fluid hemorrhagic. Cytology negative for malignancy -- Patient no longer complains about right flank pain as of 07/12/16 # goals of care: Patient is a very complex patient with several serious comorbidities. He is a current DNR/DNI -- We consulted palliative care to help patient understands goals of care. -- Patient is agreeable to the discharge to SNF # Concern for lung mass: -- CT of chest is ordered as above: Findings are remarkable for a lung mass. Patient is aware. -- Patient will need outpatient bronchoscopy and/or dedicated CT with contrast after his dialysis initiation is taken care of. # Atrial fibrillation:, Chronic -- Patient is not currently anticoagulated because of risk of fall and SDH -- Continue to monitor -- Give The patient current rate control home medications. HR controlled without medications # Hypertension, chronic -- Medications as #1 # hyperlipidemia, chronic -- Continue medications # Diabetes, chronic: Patient has insulin 12 units every morning if blood glucose greater than 150 -- Patient's home insulin as ordered along with low sliding scale. Continue metformin Disposition: Discharged to [facility].Dr Bal to follow Exam Vital Signs (Last) Date Time Temp Pulse Resp B/P Pulse Ox O2 Delivery O2 Flow Rate FiO2 07/16/16 10:01 36.4 79 16 100/53 93 Room Air Exam HEENT: bruising over the face,RIJ tunnelled HD cath in place Lungs: Clear to auscultation anteriorly negative for wheezing Heart: RRR, GII/ systolic murmur at LLSB neuro: No focal deficits psych: neg for anxiety and agitation Extremities: Remarkable for 2+ pitting edema with dark hemosiderosis Skin: Warm and dry, bruising over both arms left-sided facial bruising, long surgical scar on left medial leg all the way Abdomen: Distended but soft bowel sounds are present MSK: R L LE weaker, no right flank pain today on palpation vasc: pedal pulses palpable Test 07/09/16 03:00 07/09/16 03:40 07/09/16 07:18 07/09/16 15:33 Urine Color Yellow (YELLOW) Urine Appearance Clear (CLEAR,HAZY) Urine pH 5.5 (5.0-8.0) Urine Specific Archbold 1.010 (1.003-1.035) Urine Protein Negativemg/dL (NEG,TRACE) Urine Glucose (UA) Negativemg/dL (NEGATIVE) Urine Ketones Negativemg/dL (NEGATIVE) Urine Occult Blood Negative (NEGATIVE) Urine Nitrite Negative (NEGATIVE) Urine Bilirubin Negative (NEGATIVE) Urine Urobilinogen Normalmg/dL (NORMAL) Urine Leukocyte Esterase Negative (NEGATIVE) Urine RBC 0-2/hpf (0-2) Urine WBC 0-5/hpf (0-5) Urine Epithelial Cells Occasional/hpf (NONE-MOD) Urine Crystals None seen (NONE SEEN) Urine Bacteria None/hpf (NONE-FEW) Urine Hyaline Casts None/lpf (NONE) Urine Granular Casts None seen (NONE SEEN) Urine Waxy Casts None seen (NONE SEEN) Urine Red Blood Cell Casts None seen (NONE SEEN) Urine White Blood Cell Casts None seen (NONE SEEN) Urine Mucus None seen (None Seen) Urine Trichomonas None seen (NONE SEEN) Urine Yeast None (NONE SEEN) Urine Culture Reflexed Not indicated Lipase 123U/L (13-60) Hold Urine Received (Received) Ammonia 73ug/dL (18-53) Test 07/10/16 04:55 07/10/16 15:35 07/12/16 07:00 07/13/16 05:03 Activated Partial Thromboplast Time 29.2sec (22.8-33.0) Hemoglobin A1c 7.0% (4.8-5.6) Carcinoembryonic Antigen 4.8ng/mL (0.0-4.7) Body Fluid Source Peritoneal fluid Body Fluid Color Red (Clear) Body Fluid Appearance Cloudy Body Fluid WBC 100/mm3 Body Fluid RBC 65364/mm3 Body Fluid Polynuclear WBCs 4% Body Fluid Lymphocytes 52% Body Fluid Monocytes 26% Body Fluid Eosinophils 0% Body Fluid Basophils 0% Body Fluid Total Protein 3.3g/dL Body Fluid Albumin 2.1g/dL (.) Hepatitis B Core Total Antibody Negative (Negative) Prothrombin Time 11.6sec (8.1-12.5) Prothromb Time International Ratio 1.08ratio Phosphorus Level 4.4mg/dL (2.5-4.9) Hepatitis B Surface Antigen Negative (Negative) Hepatitis B Surface Antibody Reactive (.) Test 07/14/16 09:00 07/16/16 04:58 Magnesium Level 2.2mg/dL (1.6-2.6) White Blood Count 7.3th/mm3 (3.8-10.1) Red Blood Count 3.35mil/mm3 (4.40-5.80) Hemoglobin 9.1g/dL (13.8-17.2) Hematocrit 31.0% (41.0-50.0) Mean Corpuscular Volume 92.5fL (81-100) Mean Corpuscular Hemoglobin 27.2pg (27.0-35.0) Mean Corpuscular Hemoglobin Concent 29.4% (32.0-37.0) Red Cell Distribution Width 20.2% (12.3-15.4) Platelet Count 110bil/L (150-400) Neutrophils (%) (Auto) 69.7% (40-74) Lymphocytes (%) (Auto) 17.5% (14-46) Monocytes (%) (Auto) 11.2% (4-12) Eosinophils (%) (Auto) 1.0% (0-5) Basophils (%) (Auto) 0.3% (0-3) Sodium Level 139mEq/L (134-144) Potassium Level 3.4mEq/L (3.5-5.2) Chloride Level 96mEq/L (97-108) Carbon Dioxide Level 29mmol/L (18-29) Blood Urea Nitrogen 38mg/dL (8-27) Creatinine 1.73mg/dL (0.76-1.27) Estimat Glomerular Filtration Rate 40mL/min (>59) Glucose Level 130mg/dL (60-99) Calcium Level 8.4mg/dL (8.5-10.1) Total Bilirubin 2.1mg/dL (0.0-1.2) Aspartate Amino Transf (AST/SGOT) 33U/L (0-50) Alanine Aminotransferase (ALT/SGPT) 16U/L (0-44) Alkaline Phosphatase 121U/L (25-160) Total Protein 5.5g/dL (6.4-8.4) Albumin 3.5g/dL (3.4-5.0) Discharge Medications Discharge Medications Allopurinol (Allopurinol) 100 Mg Tablet 100 MG PO QAM (Reported) Arformoterol Tartrate (Brovana) 15 Mcg/2 Ml Vial.neb 15 MCG IH BID (Reported) Ascorbic Acid (Vitamin C) 500 Mg Capsule.er 500 MG PO QAM (Reported) Aspirin (Aspirin) 81 Mg Tablet 81 MG PO QAM (Reported) Atorvastatin Calcium (Atorvastatin Calcium) 20 Mg Tablet 20 MG PO HS (Reported) Brimonidine Tartrate (Brimonidine 0.2% Oph Soln) 5 Ml Drops 1 GTT LEFT_EYE TID ( Reported) Cider Vinegar (Apple Cider Vinegar) 600 Mg Capsule 600 MG PO DAILY (Reported) Cyanocobalamin (Vitamin B-12) (Vitamin B-12) 50 Mcg Tablet 100 MCG PO DAILY ( Reported) Dorzolamide (Dorzolamide) 10 Ml Drops 1 GTT BOTH_EYES BID (Reported) Fluticasone Propionate (Flovent HFA 220 mcg) 12 Gm Aer.w.adap 1 PUFF IH BID ( Reported) Latanoprost (Latanoprost) 2.5 Ml Drops 1 GTT BOTH_EYES HS (Reported) Metformin ER (Metformin ER) 500 Mg Tablet 500 MG PO QAM (Reported) Midodrine (Midodrine) 5 Mg Tablet 5 MG PO 08,12,16 Prescribed by: IMELDA GARZA MD Multivitamin (Multivitamins) 1 Each Capsule 1 EACH PO DAILY (Reported) Nitroglycerin 0.2 mg/hr Patch (Nitroglycerin 0.2 mg/hr Patch) 1 Each Patch 0.2 MG TRANSDERM QPM (Reported) APPLY AT 1900, OFF AT 7 AM Spironolactone (Spironolactone) 100 Mg Tablet 100 MG PO DAILY Prescribed by: CARO LEDEZMA DO Tamsulosin (Flomax) 0.4 Mg Capsule 0.4 MG PO HS Prescribed by: IMELDA GARZA MD Torsemide (Demadex) 20 Mg Tablet 20 MG PO BID Prescribed by: IMELDA GARZA MD As needed Insulin Glargine (Lantus U100 Solostar Insulin Pen) 100 Unit/1 Ml Insuln.pen 12 UNIT SUBQ QAM PRN PRN blood sugar >150 (Reported) Levalbuterol HCl (Xopenex Concentrate) 1.25 Mg/0.5 Ml Vial.neb 1.25 MG IH BID PRN PRN For Shortness of Breath (Reported) Followup Plan [facility]position[facility] facility Discharge Diet: Diabetic, Renal Diet Discharge Activity: Other (continue physical therapy at long term facility) Patient Instructions You were hospitalized due to flank pain. Cause of pain unclear but the pain resolved now. Pain can be due to ascitic fluid distention or lung nodule. Underwent paracentesis.You were noted to have end-stage renal disease due to progression of CKD. You are initiated on dialysis. Please continue dialysis 3 times a week. Please come back for dialysis tomorrow 07/17 to [facility] dialysis center. Please continue torsemide for diuresis as prescribed. Please continue lactulose and titrate to 2-3 bowel movements a day. Follow-up Provider: Lam Duron MD Follow-up with PCP in: 1 week (1 week after discharge from long term facility) Provider: Refugio Sprague DO Follow-up in: 1 week (tomorrow 07/17 at [facility] dialysis center) Mid-level Provider: Aleksander Bal DO Follow-up with Mid-level in: 1 week Cardiac Rehab: 2 weeks Time spent 40 minutes copies to: Refugio Sprague DO; Aleksander Bal DO; Lam Duron MD, Melaku MD Jul 16, 2016 12:37
--- NOTE | 2016-07-16 13:41 | NUR ---
Discharge Patient was discharged to [facility] at 1250 via wheelchair and transportation. Telemetry and PIV access discontinued. Belongings accompanied patient along with discharge packet for SNF. Patient was educated on plan for dialysis tomorrow with a 1030 check in and 1200 treatment time. Report called to RN at [facility] in [place].
== END 2016-07-16 12:50 | DRG 291 ==
LOC: SED 02:33 → OBSVTOIN 06:21 → OSC 06:21
PROVIDERS: ADMIT Hospitalist; ATTEND Family Medicine
PROC: 0W9G3ZZ Drainage of Peritoneal Cavity, Percutaneous Approach (ICD-10-PCS; principal; 2016-07-10)
PROC: 30233N1 Transfusion of Nonautologous Red Blood Cells into Peripheral Vein, Percutaneous Approach (ICD-10-PCS; 2016-07-10)
PROC: 02HV33Z Insertion of Infusion Device into Superior Vena Cava, Percutaneous Approach (ICD-10-PCS; 2016-07-13)
PROC: B5181ZA Fluoroscopy of Superior Vena Cava using Low Osmolar Contrast, Guidance (ICD-10-PCS; 2016-07-13)
PROC: 5A1D60Z (ICD-10-PCS; 2016-07-13)
DX: I13.2 Hypertensive heart and chronic kidney disease with heart failure and with stage 5 chronic kidney disease, or end stage renal disease (principal); N18.6 End stage renal disease; I50.20 Unspecified systolic (congestive) heart failure; R18.8 Other ascites; E87.1 Hypo-osmolality and hyponatremia; I48.2 Chronic atrial fibrillation; K74.60 Unspecified cirrhosis of liver; I25.10 Atherosclerotic heart disease of native coronary artery without angina pectoris; E78.5 Hyperlipidemia, unspecified; I27.2 Other secondary pulmonary hypertension; I25.5 Ischemic cardiomyopathy; N40.0 Benign prostatic hyperplasia without lower urinary tract symptoms; I71.4 Abdominal aortic aneurysm, without rupture; E11.21 Type 2 diabetes mellitus with diabetic nephropathy; I34.0 Nonrheumatic mitral (valve) insufficiency; I73.9 Peripheral vascular disease, unspecified; D63.1 Anemia in chronic kidney disease; Z66 Do not resuscitate; Z79.4 Long term (current) use of insulin; Z95.1 Presence of aortocoronary bypass graft; Z87.891 Personal history of nicotine dependence; Z79.51 Long term (current) use of inhaled steroids; Z91.81 History of falling; Z99.2 Dependence on renal dialysis

== ENCOUNTER 2016-09-29 14:44 | Emergency (ER) | payer MEDICARE, OTHER ==
[~2016-09-29] VITALS: Ht 182.9 cm; Wt 82.3 kg
[~2016-09-29 14:44] MED LIST changes: -FOSI20TA3 PO; -HYG25 PO; +MIDO5TAB PO; +TAMS0.4C98 PO; -TERA10CA5 PO
[2016-09-29 14:54] VITALS: BP 91/33; PULSE 74; RESP 18; O2SAT 90
--- NOTE | 2016-09-29 14:55 | ED.REPORT ---
HPI-Trauma Minor / Fall Date of Service Sep 29, 2016 ED Provider: Dr. Camacho Pt is an 86 y/o male w/ a complicated hx of IDDM, ischemic cardiomyopathy with CHF, ESRD on dialysis MWF, prior subdural hematoma, chronic a-fib, HLD, COPD, pulmonary HTN and history of essential HTN, CAD s/p CABG x5, presenting to the ED via EMS due to mechanical ground level fall which occurred prior to arrival. The patient was walking across the street and tripped on his right foot causing him to fall to the ground. He also reports a mild left knee injury without pain. He is able to walk without difficulty. He has a skin tear on his left arm but no pain with motion of the elbow, wrist, or shoulder. He is not anticoagulated . His last dialysis appointment was yesterday and he receives treatment every MWF. Pt denies any change in LOC, TOMAS, neck pain, CP, SOB, palpitations, lightheadedness, dizziness. Nursing Notes Stated Complaint: GROUND LEVEL FALL Chief Complaint: Multiple Trauma/Fall Nursing Notes Reviewed: Yes Allergies: Coded Allergies: Heparin Analogues (Verified Allergy, Severe, bleeding, 06/02/16) warfarin (Verified Allergy, Severe, bleeding, 06/02/16) dabigatran etexilate (Verified Adverse Reaction, Severe, bled into lungs, 06/02/16) Scheduled Allopurinol (Allopurinol) 100 Mg Tablet 100 MG PO QAM Arformoterol Tartrate (Brovana) 15 Mcg/2 Ml Vial.neb 15 MCG IH BID Ascorbic Acid (Vitamin C) 500 Mg Capsule.er 500 MG PO QAM Aspirin (Aspirin) 81 Mg Tablet 81 MG PO QAM Atorvastatin Calcium (Atorvastatin Calcium) 20 Mg Tablet 20 MG PO HS Brimonidine Tartrate (Brimonidine 0.2% Oph Soln) 5 Ml Drops 1 GTT LEFT_EYE TID Cider Vinegar (Apple Cider Vinegar) 600 Mg Capsule 600 MG PO DAILY Cyanocobalamin (Vitamin B-12) (Vitamin B-12) 50 Mcg Tablet 100 MCG PO DAILY Dorzolamide (Dorzolamide) 10 Ml Drops 1 GTT BOTH_EYES BID Fluticasone Propionate (Flovent HFA 220 mcg) 12 Gm Aer.w.adap 1 PUFF IH BID Latanoprost (Latanoprost) 2.5 Ml Drops 1 GTT BOTH_EYES HS Metformin ER (Metformin ER) 500 Mg Tablet 500 MG PO QAM Midodrine (Midodrine) 5 Mg Tablet 5 MG PO 08,12,16 Multivitamin (Multivitamins) 1 Each Capsule 1 EACH PO DAILY Nitroglycerin 0.2 mg/hr Patch (Nitroglycerin 0.2 mg/hr Patch) 1 Each Patch 0.2 MG TRANSDERM QPM APPLY AT 1900, OFF AT 7 AM Spironolactone (Spironolactone) 100 Mg Tablet 100 MG PO DAILY Tamsulosin (Flomax) 0.4 Mg Capsule 0.4 MG PO HS Torsemide (Demadex) 20 Mg Tablet 20 MG PO BID Scheduled PRN Insulin Glargine (Lantus U100 Solostar Insulin Pen) 100 Unit/1 Ml Insuln.pen 12 UNIT SUBQ QAM PRN PRN blood sugar >150 Levalbuterol HCl (Xopenex Concentrate) 1.25 Mg/0.5 Ml Vial.neb 1.25 MG IH BID PRN PRN For Shortness of Breath General Time Seen by MD: 14:55 Chief Complaint Fall Hx Obtained From: Patient, EMS Arrived By: Ambulance Onset Occurred: Just prior to arrival Symptom Duration: 1 - 15 minutes Location: Arm left Severity: Current: No pain currently Severity: Maximum: Mild Past Medical History Past Medical History Notes: PCP: Dr. Yoo Past Medical History Cataracts/glaucoma Insulin dependent diabetes CHF Chronic atrial fibrillation History of subdural hematoma - divya holes by [facility], now off anticoagulation (2014) COPD Chronic hypotension BPH ESRD on dialysis MWF History of skin cancer Abdominal aneurysm s/p endograft Pulmonary hypertension Hyperlipidemia Hepatic cirrhosis with anasarca Coronary artery disease s/p 5 vessel CABG 1982 with redo bypass 1992 Ischemic Cardiomyopathy [id number] MR Emphysema Kidney stone Past Surgical History Abdominal aneurysm Popliteal Cyst removal Cataracts Reports: CABG, Cholecystectomy Family History Father had PR at age 54 Mother had stroke Smoking History Former Smoker Social History Alcohol Use: "Social" Drug Use: Denies drug use Other Social History: Lives alone, Local resident Ambulatory Status Independent Review of Systems Constitutional: Denies: Chills, Fever Musculoskeletal: Reports: Extremity pain Neurologic: Denies: Change LOC, Dizziness, Lightheaded Complete sys rev & neg: except as marked. Cardiovascular: Denies: Chest pain, Palpitations, Syncope GI: Denies: Abdominal pain, Nausea, Vomiting Psychiatric: Denies: Agitation Physical Exam Initial Vital Signs Vital Signs (First) Date Time Temp Pulse Resp B/P Pulse Ox O2 Delivery O2 Flow Rate FiO2 09/29/16 14:54 36.5 74 18 91/33 90 Room Air 09/29/16 16:36 2 Initial VS: Reviewed, Vital signs abnormal Head / Eyes: Atraumatic, Normocephalic ENT: Mucous membranes moist, Conjunctiva normal Respiratory: Breath sounds normal, Clear to auscultation, No respiratory distress Cardiovascular: Regular rate & rhythm, Heart sounds normal, Intact distal pulses Abdomen / GI: Soft, Non-tender Skin: Warm, Dry, No cyanosis Neurologic: Alert, Oriented, Nonfocal Psychiatric: Mood/affect normal, Behavior normal, Normal thought content General/Constitutional: Awake, Alert, No acute distress, Cooperative, Not toxic appearing Neck: Non-tender, No midline vertebral tend Upper Extremity / MS: No deformity, Neurologic intact, Vascular intact LUE: 15 cm skin tear over lateral elbow 1 cm skin tear distal humerus 3 cm skin tear to left wrist Extensive old bruising over the arm Full painless ROM, no bony tenderness Lower Extremity / Pelvis / MS: No deformity, Neurologic intact, Vascular intact 1+ pitting edema bilat Full painless ROM of bilateral legs No bony tenderness L leg 2x3 cm abrasion over left knee with some old medial knee bruising Interpretation & Diagnostics X-Ray Interpretation Xray Interpretation: IMPRESSION: 1. Degenerative changes of the elbow without acute fracture. 2. No radiopaque foreign bodies. Dictated by: Dustin Rosenbaum M.D. on 09/29/2016 at 15:04 Approved by: Dustin Rosenbaum M.D. on 09/29/2016 at 15:05 X-Ray Ordered: Elbow left Interpretation / Wet Read by: Interpret - Radiologist Re-Eval/Medical Decision Med Decision/Clinical Course 86-year-old male with a complicated medical history presents after a mechanical fall today with a large skin tear to his left elbow but no other apparent injury. I x-rayed his left elbow near his skin tear to confirm no fracture, and x-ray was negative. Patient is feeling well and I did not feel the need to do further lab studies as he denied lightheadedness, dizziness, loss of consciousness, or any other concerning symptoms contributing to his fall. He did not hit his head and is not anticoagulated. He is discharged home with instructions to follow-up for a recheck later this week Source of Hx: Old records, EMS Re-Evaluation/Progress : Time of Eval: 17:21 Re-Evaluation/Progress Note: Pt rechecked. Informed pt of plan for discharge. Pt understands and agrees with plan for discharge. F/U instructions and RTER warnings given. All questions addressed. Counseled Regarding: Diagnosis, Lab results, Need for follow-up, When/why to return to ED Discharge & Departure Impression: Primary Impression: Fall from ground level Additional Impressions: Skin tear Abrasion Disposition: Home Discharge Condition All VS Reviewed: Yes Condition: Stable Patient Instructions: Acute Wounds (ED), Skin Tear (ED) Additional Instructions: No fracture was identified of your elbow. The skin tears were cleaned and dressed. Please change the dressings twice each day. Try to keep them clean and dry and apply antibiotic ointment. Return to the emergency department for any signs of infection of the wounds: pain, swelling, redness, drainage of pus, fever, or for other concerning symptoms. Follow-up with your primary care doctor in 1 week for a recheck. Referrals: Tamy Johnson (PCP) Scribe Attestation Portions of this note were transcribed by Eric Ashraf. I, Dr. Camacho personally performed the history, physical exam and medical decision-making; I reviewed and confirmed the accuracy of the information in the transcribed note. copies to: Tamy Johnson Gary R DO Sep 29, 2016 14:55 ERIC ASHRAF Sep 29, 2016 15:26
[2016-09-29] MEDS ORDERED: Lidocaine-Epi-Tetracaine Solution 3 mL Syringe TOPICAL ONE (15:04)
--- NOTE | 2016-09-29 16:06 | DRSVH ---
PROCEDURE: X-RAY LEFT ELBOW COMPLETE, MINIMUM THREE VIEWS ([id number]) INDICATIONS: FALL, LEFT ELBOW PAIN TECHNIQUE: 3 views of the elbow were acquired. COMPARISON: None. FINDINGS: Bones: No fractures or dislocations. No suspicious bony lesions. Age-appropriate degenerative gilbert ges of the elbow are present. Soft tissues: No elbow joint effusion. No suspicious soft tissue calcifications. No unexpected rad iopaque foreign bodies are present. Soft tissue edema along the medial aspect of the posterior elbow is identified with an overlying soft tissue laceration. IMPRESSION: 1. Degenerative changes of the elbow without acute fracture. 2. No radiopaque foreign bodies. Dictated by: Dustin Rosenbaum M.D. on 09/29/2016 at 15:04 Approved by: Dustin Rosenbaum M.D. on 09/29/2016 at 15:05
[2016-09-29 16:36] VITALS: BP 104/49; PULSE 99; RESP 16; O2SAT 96
[2016-09-29 17:45] VITALS: BP 110/55; PULSE 97; RESP 18; O2SAT 96
[2016-10-06] MEDS ORDERED: TERA10CA5 PO (14:15)
[2016-10-06] MEDS ORDERED: METO25TA99 PO (14:15)
[2016-10-06] MEDS ORDERED: COLC0.6C3 PO (14:15)
[2016-10-06] MEDS ORDERED: FOSI20TA3 PO (14:15)
== END 2016-09-29 17:43 | disposition home or self-care (01) ==
LOC: SED 14:44
DX: S51.012A Laceration without foreign body of left elbow, initial encounter (principal); S61.512A Laceration without foreign body of left wrist, initial encounter; S80.212A Abrasion, left knee, initial encounter; W18.39XA Other fall on same level, initial encounter; Y93.01 Activity, walking, marching and hiking; Y92.410 Unspecified street and highway as the place of occurrence of the external cause; Y99.8 Other external cause status; E11.29 Type 2 diabetes mellitus with other diabetic kidney complication; N18.6 End stage renal disease; I50.9 Heart failure, unspecified; I25.10 Atherosclerotic heart disease of native coronary artery without angina pectoris; I27.2 Other secondary pulmonary hypertension; E78.5 Hyperlipidemia, unspecified; Z85.828 Personal history of other malignant neoplasm of skin; Z87.891 Personal history of nicotine dependence; Z79.82 Long term (current) use of aspirin; Z79.84 Long term (current) use of oral hypoglycemic drugs; Z88.8 Allergy status to other drugs, medicaments and biological substances

== ENCOUNTER 2016-10-17 04:48 | Inpatient (IN) | payer MEDICARE, OTHER ==
[2016-10-16 08:46] VITALS: BP 89/52; PULSE 77
[2016-10-17] VITALS (14 sets, daily range): BP systolic 69–94; BP diastolic 30–59; PULSE 65–89; RESP 12–20; O2SAT 93–98
[~2016-10-17] VITALS: Ht 182.9 cm; Wt 79.1 kg
[~2016-10-17 04:48] MED LIST changes: +COLC0.6C3 PO; +FOSI20TA3 PO; -METF500T7 PO; +METO-386 PO; +TERA10CA5 PO
--- NOTE | 2016-10-17 04:51 | ED.REPORT ---
HPI-Head Prob / Injury Date of Service Oct 17, 2016 ED Provider: Oskar Webster MD An 86 year old male with a history of IDDM, COPD, ESRD on dialysis MWF, chronic hypotension, pulmonary hypertension and hyperlipidemia is brought to the ED via EMS due to a forehead laceration following a fall. The pt was standing up from sitting on the toilet this morning when he lost his balance and fell. He hit his head on the bathtub, resulting in a laceration. The pt denies loss of consciousness or neck pain. Paramedics found the pt with a systolic blood pressure in the seventies. The pt takes one 81 mg aspirin daily but denies other blood thinner use. Nursing Notes Stated Complaint: GLF,HEAD INJURY Nursing Notes Reviewed: Yes Allergies: Coded Allergies: Heparin Analogues (Verified Allergy, Severe, bleeding, 06/02/16) warfarin (Verified Allergy, Severe, bleeding, 06/02/16) dabigatran etexilate (Verified Adverse Reaction, Severe, bled into lungs, 06/02/16) Scheduled Allopurinol (Allopurinol) 100 Mg Tablet 100 MG PO QAM Arformoterol Tartrate (Brovana) 15 Mcg/2 Ml Vial.neb 15 MCG IH BID Ascorbic Acid (Vitamin C) 500 Mg Capsule.er 500 MG PO QAM Aspirin (Aspirin) 81 Mg Tablet 81 MG PO QAM Atorvastatin Calcium (Atorvastatin Calcium) 20 Mg Tablet 20 MG PO HS Brimonidine Tartrate (Brimonidine 0.2% Oph Soln) 5 Ml Drops 1 GTT LEFT_EYE TID Cider Vinegar (Apple Cider Vinegar) 600 Mg Capsule 600 MG PO DAILY Cyanocobalamin (Vitamin B-12) (Vitamin B-12) 50 Mcg Tablet 100 MCG PO DAILY Dorzolamide (Dorzolamide) 10 Ml Drops 1 GTT BOTH_EYES BID Fluticasone Propionate (Flovent HFA 220 mcg) 12 Gm Aer.w.adap 1 PUFF IH BID Fosinopril Sodium (Fosinopril Sodium) 20 Mg Tablet 10 MG PO DAILY Latanoprost (Latanoprost) 2.5 Ml Drops 1 GTT BOTH_EYES HS Metoprolol Succinate ER (Metoprolol Succinate ER) 25 Mg Tab.er.24h 25 MG PO DAILY Midodrine (Midodrine) 5 Mg Tablet 5 MG PO 08,12,16 Multivitamin (Multivitamins) 1 Each Capsule 1 EACH PO DAILY Nitroglycerin 0.2 mg/hr Patch (Nitroglycerin 0.2 mg/hr Patch) 1 Each Patch 0.2 MG TRANSDERM QPM APPLY AT 1900, OFF AT 7 AM Spironolactone (Spironolactone) 100 Mg Tablet 100 MG PO DAILY Tamsulosin (Flomax) 0.4 Mg Capsule 0.4 MG PO HS Terazosin (Terazosin) 10 Mg Capsule 10 MG PO HS Torsemide (Demadex) 20 Mg Tablet 20 MG PO BID Scheduled PRN Colchicine (Colchicine) 0.6 Mg Capsule 0.6 MG PO DAILY PRN PRN gout Insulin Glargine (Lantus U100 Solostar Insulin Pen) 100 Unit/1 Ml Insuln.pen 12 UNIT SUBQ QAM PRN PRN blood sugar >150 Levalbuterol HCl (Xopenex Concentrate) 1.25 Mg/0.5 Ml Vial.neb 1.25 MG IH BID PRN PRN For Shortness of Breath General Time Seen by Provider: 04:51 Chief Complaint Laceration Hx Obtained From: Patient, EMS Arrived By: Ambulance Onset Occurred: 1 - 4 hours ago Symptom Duration: Since onset Recent Healthcare: Recent doctor visit, Recent hospitalization Similar Sx Previous: No Risk-Head Prob / Injury Head CT Imaging Patient Presents WITHOUT: Loss of Conciousness, PostTraumatic Amnesia, PROCEED W/ CONSIDERATIONS Consider Non Contrast CT for: >/= 60 yo Age WITHOUT LOCNo Fall > 3ft., No Vomiting RF Statements: Risk factors reviewed Past Medical History Past Medical History Notes: PCP: Dr. Yoo Past Medical History Cataracts/glaucoma Insulin dependent diabetes CHF Chronic atrial fibrillation History of subdural hematoma - divya holes by [facility], now off anticoagulation (2014) COPD Chronic hypotension BPH ESRD on dialysis MWF History of skin cancer Abdominal aneurysm s/p endograft Pulmonary hypertension Hyperlipidemia Hepatic cirrhosis with anasarca Coronary artery disease s/p 5 vessel CABG 1982 with redo bypass 1992 Ischemic Cardiomyopathy [id number] MR Emphysema Kidney stone Past Surgical History Abdominal aneurysm Popliteal Cyst removal Cataracts Reports: CABG, Cholecystectomy Family History Father had MS at age 54 Mother had stroke Smoking History Former Smoker Social History Alcohol Use: "Social" Drug Use: Denies drug use Other Social History: Lives alone, Local resident Ambulatory Status Independent Review of Systems Review of Systems Note: laceration GI: Denies: Abdominal pain, Vomiting Musculoskeletal: Denies: Back pain, Neck pain Skin: Denies Rash Neurologic: Denies: Change LOC Complete sys rev & neg: except as marked. Physical Exam Initial Vital Signs Vital Signs (First) Date Time Temp Pulse Resp B/P Pulse Ox O2 Delivery O2 Flow Rate FiO2 10/17/16 04:55 36.4 76 18 89/46 93 Room Air Initial VS: Reviewed General/Constitutional: Awake, Alert, No acute distress Head / Eyes: Normocephalic, PERRL, EOMI ENT: Airway patent, Mucous membranes moist Neck: Atraumatic, Supple, Full range of motion Neurologic: Oriented X3, Speech NL, No motor deficits, No sensory deficits Respiratory / Chest: Atraumatic, Breath sounds NL, Breath sounds = bilat, No respiratory distress Cardiovascular: Heart rate NL, Regular rhythm, Heart sounds NL Upper Extremity / MS: Full range of motion, Neurologic intact, Vascular intact Lower Extremity / Pelvis / MS: Atraumatic, Full range of motion Skin: Color NL, No rash, Warm, Dry 12 cm L-shaped flap laceration on forehead extending to galea galea mostly intact bleeding moderately skin tear on lateral left shoulder 3 cm x 4 cm denuded area surrounding bruising Psychiatric: Affect NL, Mood NL Abdomen: Atraumatic, Soft, Non-tender Back: Atraumatic, Full range of motion Interpretation & Diagnostics Lab Results Interpretation Test 10/17/16 04:53 Hold Purple Top Tube Received (Received) Hold Blue Top Tube Received (Received) Hold [place] Top Tube Received (Received) Hold [place] Top Tube Received (Received) CT Head Interpretation CONCLUSION: Cortical atrophy. Possible tiny old bilateral lacunar infarcts. Left frontal soft tissue laceration. Interpretation / Wet Read by: Interpret - Radiologist Procedures Laceration Management Laceration Management: approximately 27 sutures Time: 05:26 Procedure Performed by: ED physician Consent / Setup / Site Prep: Informed consent provided, Consent from parent , Time-out performed, Hand hygiene observed, Stand sterile technique Location of Wound: forehead, flap laceration Wound Length: 12 cm Local Anesthesia: Lidocaine 1% Digital Block: No Debridement: None Irrigation: Copious Foreign Body Explore / Removal: Explored for foreign body Repair Skin: ___ O (5), Nylon # Sutures - Skin: 1 Suture Technique: Simple Post-Procedure / Complications: Antibiotic oint applied, Dressing applied, No complications, Condition improved, Tolerated procedure well, Patient stable Re-Eval/Medical Decision Med Decision/Clinical Course 86-year-old end-stage renal disease on dialysis, presents after a ground-level fall with a 12 cm triangular flap laceration on his forehead. This was repaired with sutures, and then with a pressure dressing to provide hemostasis under the flap. He remains orthostatic and mildly hypotensive, but within the range that he normally is. However, his blood pressure dropped to about seventy-nine with upright posture. We will admit for observation now and hydrate him gently. Dialysis was yesterday and not due again until Wednesday. Hemoglobin is down a bit from [place] was a 6.9 but he was only 7.1 at recent determination. Expect that might drop a bit lower with hydration. Re-Evaluation/Progress #1: Time of Eval: 04:58 Patient Status: Condition improved Re-Evaluation/Progress Note: Pt rechecked, who is stable. Further physical exam is performed. Re-Evaluation/Progress #2: Time of Eval: 05:26 Patient Status: Condition improved Re-Evaluation/Progress Note: Pt rechecked and laceration repair is performed. Pt tolerates the procedure well and there are no complications. The diagnosis and plan for discharge are discussed. The pt understands and agrees with the plan. All questions are addressed at this time. Counseled Regarding: Diagnosis, Lab results, Need for follow-up, When/why to return to ED Discharge & Departure Primary Impression: Fall from ground level Additional Impression: Facial laceration Encounter type: initial encounter Qualified Code: S01.81XA - Laceration without foreign body of other part of head, initial encounter Disposition: Home All VS Reviewed: Yes Condition: Stable Referrals: Tamy Johnson (PCP) Scribe Attestation Portions of this note were transcribed by Aliya Singh. I, Dr. Webster personally performed the history, physical exam and medical decision-making; I reviewed and confirmed the accuracy of the information in the transcribed note. copies to: Tamy Johnson Christopher W MD Oct 17, 2016 04:51 ALIYA SINGH Oct 17, 2016 04:58
--- NOTE | 2016-10-17 07:11 | DRSVH ---
PROCEDURE: CT BRAIN WITHOUT CONTRAST ([id number]) INDICATIONS: 86-year-old male with ground-level fall and frontal laceration. TECHNIQUE: Noncontrast 4.5 mm thick angled axial sections acquired from the foramen magnum to the vertex, with c oronal reformats. COMPARISON: [facility], CT, CT BRAIN WO CON, 06/22/2016, 17:55. [facility], CT, CT BRAIN WO CON, 11/27/2014, 14:38. [facility], CT, CT BRAIN WO CON, 10/24/2014, 13:4 1. FINDINGS: Image quality: Excellent. CSF spaces: Basal cisterns are patent. No extra-axial fluid collections. The ventricles are symmet dameon in size and shape. Brain: No intracranial bleeds or masses. There is cerebral volume loss for age, with resultant vent ricular and sulcal prominence. There are scattered periventricular and deep white matter chronic sma ll vessel ischemic changes. There is intracranial internal carotid and left vertebral artery atheros clerosis. Skull and face: Calvarium and visualized facial bones appear intact, without suspicious lesions. Mul tiple bilateral divya holes are again noted. There is right forehead scalp soft tissue swelling. Sinuses: Visualized sinuses appear clear. There is persistent patchy inferior left mastoid air cell f luid. IMPRESSION: 1. No acute intracranial abnormalities after fall. 2. Left forehead scalp soft tissue swelling consistent with hematoma formation. 3. Persistent patchy dependent left mastoid air cell fluid, possibly mastoiditis. Dictated by: John Spann M.D. on 10/17/2016 at 7:06 Approved by: John Spann M.D. on 10/17/2016 at 7:09
--- NOTE | 2016-10-17 10:40 | NUR ---
ADMIT to [facility] [place] Report received from Raúl Starr/Charge Nurse. Pt brought onto unit via WC. Able to stand with home cane. A little weak and shaky when up. Proceeding as 1P assist for safety, d/t hypotension, anemia, weakness, and fall hx. Pt reports 6/10 headache at laceration area, wound bandaged with gauze - CDI with no direct observation. Denies SOB at rest. Admission and Med Rec completed by La Nena/Admit nurse. Assessments completed, pt oriented to unit, room and call light. Pt educated with plan of care, board updated, brenda alarm on. MD in room to evaluate and place orders.
[2016-10-17] MEDS ORDERED: TAMS0.4C98 PO (11:02)
[2016-10-17] MEDS ORDERED: TORS20TA3 PO (11:04)
[2016-10-17] MEDS ORDERED: Glucose 40% Oral Gel 15 Gm Tube PO PRN (11:55)
[2016-10-17 12:09] LABS: BASOPHILS % (AUTO) 0.2 % (0-3); EOSINOPHILS % (AUTO) 0.7 % (0-5); MONOCYTES % (AUTO) 9.4 % (4-12); Mean Corpuscular Hemoglobin 32.1 pg (27.0-35.0); Mean Corpuscular Volume 105.5 fL (81-100); NEUTROPHILS % (AUTO) 77.3 % (40-74); Platelet Count 93 bil/L (150-400)
[2016-10-17] MEDS ORDERED: 0.9% Sodium Chloride 250 ML ONE (12:43)
[2016-10-17] MEDS: Insulin LISPRO 300 Unit/3 mL Inj SUBQ SCH ×3 (12:52→22:00)
--- NOTE | 2016-10-17 14:06 | PCM.HPMED ---
Subjective Date of Service Oct 17, 2016 Primary Provider: Admitting Physician: Angel Shane MD Primary Care Physician: Tamy Johnson Attending Physician: Angel Shaen MD Chief Complaint: s/p fall History of Present Illness: 86-year-old white male with CHF,ESRD on HD, HTN, DM, COPD, CAD s/p CABG, s/p AAA repair, and liver cirrhosis p/w episode of fall Last night, patient was on the toilet, when he stood up, felt like he was losing balance, new that he was falling down. Fell down and hit his head at the bath tub. Patient did not pass out before or after fall. Had to stop bleeding with towel then called 911. pt denied having any chest pain, palpitations, blurry vision, headache, slurred speech, numbness and tingling, difficulty breathing, nausea prior to fall. Patient's general health was okay recently. except that patient felt little weak for the past week after dialysis , pt was told that he required 2 pints of blood. Despite chronic anemia, patient denied any postural dizziness. Patient has been eating okay with normal appetite, occasionally had diarrhea but unchanged from baseline. Patient also has been compliant to dialysis for the past 5 months. Patient also admitted to take all of the medicines he was supposed to take, including diuretics and aspirin. His PCP change his medicine a few weeks ago from 7 pills of torsemide to 6 pills(3tab bid), otherwise no change of medicine recently by PCP or lead project engineer as per the patient. ROS: Patient denied fever, chills, chest pain, constipation, diarrhea, nausea, vomiting, recent travel, sick contact. Patient lives alone independently, brother is visiting often. In ED, VS BP running low, 90/40. orthostatic VS boarderline+ 84/40 to 77/33 on standing, with sx. trauma w/u CTH showed left frontal head soft tissue swelling suggestive of hematoma, which is consistent to lacerated forehead 12cm triangular flap laceration, sutured. Review of Systems: Pertinent positives as noted in history of present illness. All other systems were reviewed and are negative Allergies Coded Allergies: Heparin Analogues (Verified Allergy, Severe, bleeding, 06/02/16) warfarin (Verified Allergy, Severe, bleeding, 06/02/16) dabigatran etexilate (Verified Adverse Reaction, Severe, bled into lungs, 06/02/16) Home Medications Scheduled Allopurinol (Allopurinol) 100 Mg Tablet 100 MG PO QAM Arformoterol Tartrate (Brovana) 15 Mcg/2 Ml Vial.neb 15 MCG IH BID Ascorbic Acid (Vitamin C) 500 Mg Capsule.er 500 MG PO QAM Aspirin (Aspirin) 81 Mg Tablet 81 MG PO QAM Atorvastatin Calcium (Atorvastatin Calcium) 20 Mg Tablet 20 MG PO HS Brimonidine Tartrate (Brimonidine 0.2% Oph Soln) 5 Ml Drops 1 GTT LEFT_EYE TID Cider Vinegar (Apple Cider Vinegar) 600 Mg Capsule 600 MG PO DAILY Cyanocobalamin (Vitamin B-12) (Vitamin B-12) 50 Mcg Tablet 100 MCG PO DAILY Dorzolamide (Dorzolamide) 10 Ml Drops 1 GTT BOTH_EYES BID Fluticasone Propionate (Flovent HFA 220 mcg) 12 Gm Aer.w.adap 1 PUFF IH BID Fosinopril Sodium (Fosinopril Sodium) 20 Mg Tablet 10 MG PO DAILY Latanoprost (Latanoprost) 2.5 Ml Drops 1 GTT BOTH_EYES HS Metoprolol Succinate ER (Metoprolol Succinate ER) 25 Mg Tab.er.24h 25 MG PO DAILY -D-n-l-s-z-j-i-n-e- -(--W-p-w-x-c-p-i-n-e--)- -5- -M-g- -D-q-i-l-e-t- -5- -M-G- -P-O- -0-8--,--1-2--,--1-6- Multivitamin (Multivitamins) 1 Each Capsule 1 EACH PO DAILY Nitroglycerin 0.2 mg/hr Patch (Nitroglycerin 0.2 mg/hr Patch) 1 Each Patch 0.2 MG TRANSDERM QPM APPLY AT 1900, OFF AT 7 AM Spironolactone (Spironolactone) 100 Mg Tablet 100 MG PO DAILY Tamsulosin (Flomax) 0.4 Mg Capsule 0.4 MG PO HS Terazosin (Terazosin) 10 Mg Capsule 10 MG PO HS -B-q-b-r-o-f-i-d-e- -(--P-g-t-a-d-e-x--)- -2-0- -M-g- -Z-v-o-l-e-t- -2-0- --G- -P-O- -B-I-D- torsemide 60mg bid Scheduled PRN Colchicine (Colchicine) 0.6 Mg Capsule 0.6 MG PO DAILY PRN PRN gout Insulin Glargine (Lantus U100 Solostar Insulin Pen) 100 Unit/1 Ml Insuln.pen 12 UNIT SUBQ QAM PRN PRN blood sugar >150 Levalbuterol HCl (Xopenex Concentrate) 1.25 Mg/0.5 Ml Vial.neb 1.25 MG IH BID PRN PRN For Shortness of Breath PMH Diabetes mellitus, last a1c 7.0 in , controlled chronic HFrEF on diuretics. ischemic cardiomyopathy, CAD s/p 5 vessel CABG COPD, hypertension, chronic A. fib not on AC due to hx of SDH hepatic cirrhosis with anasarca, BPH AAA repaired, [id number] MR Surgical History Remarkable for cataracts, AAA status post skin graft,, cholecystectomy Family History Remarkable for mother who with stroke Dad who with heart attack Social History Hx Alcohol Use: No (hx of) Hx Substance Use: No Hx Tobacco Use: Yes Smoking Status: Former Smoker Exam Vital Signs Vital Sign - Last Date Time Temp Pulse Resp B/P Pulse Ox O2 Delivery O2 Flow Rate FiO2 10/17/16 10:56 36.5 87 18 84/40 93 Room Air 77/33 Exam NAD, comfortably laying down on the bed sterilely dressed forehead s/p sutured no JVD, MMM, no LAD RRR, nl s1, s2 no mrg CTAB, no w,c S,ND,NT,normoactive BS+ warm, 1+ pitting edema below knee bilat, pulses 2/2 Assessment & Plan 86-year-old white male with CHF,ESRD on HD, HTN, DM, COPD, CAD s/p CABG, s/p AAA repair, and liver cirrhosis p/w episode of fall Acute, active s/p fall, POA, hx suggestive of orthostic, possible micturition syncope or withdrawl from midodrine or medication induced from a1 antagonist, BP runs SBP80 -90s far below his baseline, although relatively asymptomatic, it is likely contributing to his presentation. Orthostatic vs + as pt was symptomatic. -will get orthostatic again tomorrow AM after transfusion. -consider midorine as it appeared stopped from last med recs(unclear when and why it was stopped), -hold off on home diuretics, BPH meds -telemetry given significant CAD hx, Superficial 12cm forehead laceration due to fall, s/p sutured, POA, CTH neg despite Aspirin use. -will hold off aspirin for now -OP FU for surgery or ED for suture removal. anemia of chronic dz or kidney dz, POA, hgb7 close to the last one in dialysis yesterday 7.1. no s/s of active bleeding -target hgb>9 given hx of CAD -will cautiously try 1unit over 4hrs then consider another unit, lasix in between. significant hypotension, hx of HTN, POA, management as above, hold off home ACEI. Chronic, stable ESRD on HD, HD as scheduled, appreciate renal recs. Diabetes mellitus, last a1c 7.0 in , controlled, continue with lispro SS , fsg qac hs. chronic HFrEF on diuretics, mildly overloaded on exam, ischemic cardiomyopathy, CAD s/p 5 vessel CABG, asymptomatic, COPD, controlled, chronic A. fib not on AC due to hx of SDH, pt was taking aspirin since episode of SDH. close neurocheck for any worsening neurologic sx/sign hepatic cirrhosis with anasarca, stable BPH, stable, hold off on terazosin. AAA repaired, not active dispo:Patient will be admitted with inpatient status with expectation of inpatient therapy for more than 2 midnights diet:renal dvt ppx:SCD DNR/DNI Time spent 65min Angel Shane MD Oct 17, 2016 11:55
[2016-10-17] MEDS ORDERED: Lidocaine 5% 35.5 Gm Ointment TOPICAL ONE (15:40)
[2016-10-17] MEDS: Brimonidine 0.2% 5 mL Ophthalmic Solution LEFT_EYE SCH ×2 (16:50→22:01)
--- NOTE | 2016-10-17 19:12 | NUR ---
FRANSISCO explained and signed. Copy of FRANSISCO and Medicare self administered medication information given to pt.
[2016-10-17] MEDS: Fluticasone 100 mCg Inhaler INHALATION SCH (22:05)
[2016-10-17] MEDS: Insulin GLARgine 100 Unit/mL Syringe SUBQ SCH (22:06)
[2016-10-17] MEDS: Dorzolamide 2% 10 mL Ophthalmic Solution BOTH_EYES SCH (22:07)
[2016-10-18] VITALS (14 sets, daily range): BP systolic 94–106; BP diastolic 41–63; PULSE 69–92; RESP 16–18; O2SAT 91–98
[2016-10-18 07:14] LABS: BASOPHILS % (AUTO) 0.2 % (0-3); MONOCYTES % (AUTO) 10.9 % (4-12); Mean Corpuscular Hemoglobin 32.3 pg (27.0-35.0); Mean Corpuscular Volume 101.4 fL (81-100); NEUTROPHILS % (AUTO) 69.9 % (40-74); Platelet Count 91 bil/L (150-400)
[2016-10-18] MEDS: Insulin LISPRO 300 Unit/3 mL Inj SUBQ SCH ×4 (08:00→21:04)
[2016-10-18] MEDS ORDERED: 0.9% Sodium Chloride 250 ML ONE (09:27)
[2016-10-18] MEDS: Lidocaine 5% 35.5 Gm Ointment TOPICAL PRN (10:02)
[2016-10-18] MEDS: Fluticasone 100 mCg Inhaler INHALATION SCH ×2 (10:04→20:57)
[2016-10-18] MEDS: Brimonidine 0.2% 5 mL Ophthalmic Solution LEFT_EYE SCH ×3 (10:05→20:57)
[2016-10-18] MEDS: Dorzolamide 2% 10 mL Ophthalmic Solution BOTH_EYES SCH ×2 (10:05→20:57)
--- NOTE | 2016-10-18 10:32 | NUR ---
Evaluation completed. Please go to "Notes" then click on "Assessments and Notes" (bottom left corner of screen). Then select appropriate discipline tab on top of screen.
--- NOTE | 2016-10-18 11:12 | PCM.PNMED ---
Subjective Date of Service Oct 18, 2016 Subjective pt tolerated 1unit of pRBC well, no dyspnea, remained good Oxygenation, w/o O2 supplement, pt had mild proximal anterior thigh pain, which is chronic intermittent, responded well to lidocaine oint, resolved denied TOMAS, lightheadedness, noted BP 70/40 again after transfusion yesterday, ordered midodrine, BP trends better up to SBP 90-100s, hgb returned 7.1 from 7.0 after transfusion, another unit ordered Exam Vital Signs Vital Sign - Last Date Time Temp Pulse Resp B/P Pulse Ox O2 Delivery O2 Flow Rate FiO2 10/18/16 10:15 36.5 75 94/56 10/18/16 04:38 18 93 Room Air 10/18/16 00:04 2.00 Intake and Output 10/17/16 10/17/16 10/18/16 Cumulative From/Thru 15:00 23:00 07:00 10/17/16 04:55 - 10/18/16 06:31 Intake Total 923 ml 280 ml 1203 ml Output Total 125 ml 525 ml 650 ml Balance 798 ml -245 ml 553 ml Intake Oral 573 ml 280 ml 853 ml IV Total 50 ml 50 ml Packed Cells 300 ml 300 ml Output Urine Total 125 ml 525 ml 650 ml # Bowel Movements 0 0 Exam NAD, comfortably laying down on the bed no JVD, MMM, no LAD, forehead sterilely dressed RRR, nl s1, s2 no mrg CTAB, no w,c S,ND,NT,normoactive BS+ warm, no edema, pulses 2/2, no td on Rt anterior thigh IVs and Medications Medications Reviewed: Medications were reviewed in detail Lab and Diagnostics Result Diagram: 10/18/16 0650 10/17/16 0052 Assessment & Plan 86-year-old white male with CHF,ESRD on HD, HTN, DM, COPD, CAD s/p CABG, s/p AAA repair, and liver cirrhosis p/w episode of fall Acute, active s/p fall, POA, hx suggestive of orthostic, possible micturition syncope or withdrawl from midodrine or medication induced from a1 antagonist, BP runs SBP80 -90s far below his baseline, although relatively asymptomatic, it is likely contributing to his presentation. Orthostatic vs + as pt was symptomatic. -pt remains clinically stable with blood transfusion, vs more stable with midodrine. -continue midorine 5mg tid, (unclear when and why it was stopped), -resume home diuretics, continue to hold BPH meds -telemetry given significant CAD hx, Superficial 12cm forehead laceration due to fall, s/p sutured, POA, CTH neg despite Aspirin use. -hold off aspirin for now -OP FU for surgery or ED for suture removal. anemia of chronic dz or kidney dz, POA, hgb7 close to the last one in dialysis yesterday 7.1. no s/s of active bleeding. s/p 1unit on 10/17, h/h remained similar. -target hgb>9 given hx of CAD -will cautiously try 1unit over 4hrs today, monitor respiratory status closely significant hypotension, hx of HTN, POA, management as above, hold off home ACEI. Chronic, stable ESRD on HD, HD as scheduled, appreciate renal recs. Diabetes mellitus, last a1c 7.0 in , controlled, continue with lispro SS , fsg qac hs. chronic HFrEF on diuretics, mildly overloaded on exam, ischemic cardiomyopathy, CAD s/p 5 vessel CABG, asymptomatic, COPD, controlled, chronic A. fib not on AC due to hx of SDH, pt was taking aspirin since episode of SDH. close neurocheck for any worsening neurologic sx/sign hepatic cirrhosis with anasarca, stable BPH, stable, hold off on terazosin. AAA repaired, not active dispo:d/c likely 1-2days home diet:renal dvt ppx:SCD DNR/DNI Time spent 35min Angel Shane MD Oct 18, 2016 11:12
[2016-10-18] MEDS: Arformoterol 15 mCg/2 mL Inhalation Solution INHALATION SCH ×2 (13:19→19:57)
--- NOTE | 2016-10-18 13:43 | CONS ---
[address] [address] CONSULTATION REPORT PATIENT: XIOMARA CONNORS : 1930 MR#: [id number] ADMIT: 10/17/2016 JOB ID: [id number] NEPHROLOGY CONSULTATION: DATE OF SERVICE: 10/18/2016 REQUESTING PHYSICIAN: Dr. Shane. REASON FOR CONSULTATION: Management of end-stage renal disease. CHIEF COMPLAINT: Status post fall and head injury. PRESENT ILLNESS: This is an 86-year-old male who is well-known to Renal service with multiple past medical history including end-stage renal disease, COPD, type 2 diabetes with diabetic nephropathy, ischemic cardiomyopathy, liver cirrhosis, valvular heart disease, coronary artery disease, status post CABG, who presented to the hospital after the episode of ground level fall. The patient reported that Wednesday morning when he was in the bathroom, he suddenly lost his balance and fell down. He hit his head on the bathtub. He stated that he was bleeding profoundly. Fortunately, he was able to stop the bleeding and called 911. His last dialysis was on Sunday, October 16, 2016. He was told that he would require 2 units of blood given worsening anemia. He was instructed to go to the emergency room if he developed any chest pain, dizziness, or fatigue. The patient is known to have chronic hypotension. His initial blood pressure in the emergency room was 89/46. Later on, came down to 69/31. His initial hemoglobin was 7.1. He received 1 unit of blood overnight. A repeat hemoglobin remains the same at 7.1. Currently, he is receiving the second unit of packed RBCs. The patient was found to have a lacerated wound at the left frontal area and that was sutured. The pain is controlled. His blood pressure improved. Current one is 106/63. He has no chest pain. No shortness of breath. No lightheadedness at the moment. Renal was consulted to continue dialysis while he is hospitalized. PAST MEDICAL HISTORY: 1. End-stage renal disease, on hemodialysis every Wednesday, Wednesday, and Wednesday. 2. Chronic atrial fibrillation. 3. Heart failure with reduced ejection fraction. 4. Type 2 diabetes with renal manifestation. 5. Hypertension with hypertensive nephrosclerosis. 6. BPH and urinary retention. 7. COPD. 8. Abdominal aneurysm, status post endograft. 9. Coronary artery disease, status post CABG. 10. Dyslipidemia. 11. Peripheral vascular disease. 12. Pulmonary hypertension. 13. Valvular heart disease. 14. History of subdural hematoma. 15. History of ground level fall. 16. History of skin cancer. PAST SURGICAL HISTORY: 1. Status post cholecystectomy. 2. Status post CABG. 3. Cataract surgery. 4. Right tunneled catheter placement. FAMILY HISTORY: Father had ND at age 54. Mother had stroke. SOCIAL HISTORY: He is a former smoker. ALLERGIES: 1. HEPARIN analogues. 2. WARFARIN. MEDICATIONS: Reviewed. REVIEW OF SYSTEMS: Fourteen point review of systems was performed. PHYSICAL EXAMINATION: Vitals: Temperature 36.5, pulse 73, respiratory rate 18, blood pressure 106/63. General appearance: Awake, alert, oriented x3. No acute distress. HEENT: Dressing applied at the forehead. Mild pallor. No icteric sclerae. No JVD. No lymphadenopathy. No thyroid enlargement. Heart: Regular rhythm. Normal S1, S2. Systolic murmur noted. Lungs: Occasional coarse crackles at the bases. No wheezing. No rhonchi. Abdomen: Soft, active bowel sounds. Nontender. Nondistended. No hepatosplenomegaly. Extremities: No edema. Positive for wrinkled skin. Positive for chronic skin changes. LABORATORY DATA: Hemoglobin 7.1, WBC 5.6, platelets 91. Sodium 140, potassium 4.8, chloride 97, bicarb 27, BUN 49, creatinine 3.27. ASSESSMENT: 1. Status post ground level fall with head injury. 2. Chronic hypotension, worsening. The patient now appears to be hypovolemic. I would recommend to hold diuretics. We will manage fluid removal via hemodialysis. 3. Anemia of chronic kidney disease, status post 1 unit of blood. Now, he is getting the second unit. Will give IV Aranesp with HD in am. 4. End-stage renal disease, on hemodialysis. Next dialysis will be scheduled in the morning. 5. History of heart failure with reduced ejection fraction. 6. Pulmonary hypertension. 7. Valvular heart disease. 8. Chronic atrial fibrillation. 9. Liver cirrhosis. 10. Abdominal aortic aneurysm, status post endograft. PLAN: 1. Arrange for dialysis in the morning. Fluid removal up to 1 L depending upon his blood pressure. 2. I would recommend to hold diuretics for now. 3. Hold antihypertensive medication. 4. Check stool occult blood. Thank you for allowing me to participate in the care of your patient. We will monitor along with you. THEO
--- NOTE | 2016-10-18 16:50 | NUR ---
Shift summary Pt hypotensive in the morning, early afternoon SBP in the 90's. Pressure improved in the later afternoon with SBP in the low 100s and MAP >70. He was given 1 unit of PRBC and tolerated it well. He was incontinent of urine x2 today. UA sent to lab. He had a BM and a sample was sent which was positive for occult blood. The MD was notified. Dressings on patient's L arm were changed. He denied pain. Appetite is good. SBA in room.
--- NOTE | 2016-10-18 19:54 | NUR ---
Inpatient status effective today, JOSE RAMON signed.
[2016-10-18] MEDS: Insulin GLARgine 100 Unit/mL Syringe SUBQ SCH (21:00)
[2016-10-19] VITALS (9 sets, daily range): BP systolic 93–111; BP diastolic 47–55; PULSE 65–83; RESP 18; O2SAT 88–100
--- NOTE | 2016-10-19 04:58 | NUR ---
NOC activity Pt has been alert and oriented. Denies chest pain, sob, n/v or abd discomfort. Has been having oliguria.Pt reports of having right ear pain. Tylenol administered PRN. Upon re-evaluation pt states the pain "comes and goes". Pt's BP is mildly decreased, aside from that VSS and has been afebrile overnight. Intentional hourly done.
[2016-10-19] MEDS: Insulin LISPRO 300 Unit/3 mL Inj SUBQ SCH ×4 (07:53→20:37)
[2016-10-19] MEDS: Dorzolamide 2% 10 mL Ophthalmic Solution BOTH_EYES SCH ×2 (08:29→20:26)
[2016-10-19] MEDS: Fluticasone 100 mCg Inhaler INHALATION SCH (08:29)
[2016-10-19] MEDS: Brimonidine 0.2% 5 mL Ophthalmic Solution LEFT_EYE SCH ×3 (08:29→20:25)
--- NOTE | 2016-10-19 08:38 | PCM.PNMED ---
Subjective Date of Service Oct 19, 2016 Subjective pt stated that he has had black loose stools for months, FOBT yesterday positive. h/h this AM appropriately elevated to 8.7 after 2nd unit, BP trends better [id number], pt denied postural dizziness pt denied having epigastric pain, had colonscopy 30yrs, had tiny polyp but no other findings. awaits GI eval. scheduled for dialysis today Exam Vital Signs Vital Sign - Last Date Time Temp Pulse Resp B/P Pulse Ox O2 Delivery O2 Flow Rate FiO2 10/19/16 06:12 36.7 73 18 103/52 98 Room Air 10/18/16 19:57 2.00 Intake and Output 10/18/16 10/18/16 10/19/16 Cumulative From/Thru 15:00 23:00 07:00 10/17/16 04:55 - 10/19/16 00:30 Intake Total 400 ml 1319 ml 2922 ml Output Total 200 ml 850 ml Balance 400 ml 1119 ml 2072 ml Intake Oral 840 ml 1693 ml IV Total 100 ml 479 ml 629 ml Packed Cells 300 ml 600 ml Output Urine Total 200 ml 850 ml # Voids 3 3 # Bowel Movements 2 2 Exam NAD, comfortably laying down on the bed no JVD, MMM, no LAD, forehead sterilely dressed RRR, nl s1, s2 no mrg CTAB, no w,c S,ND,NT,normoactive BS+ warm, no edema, pulses 2/2, no td on Rt anterior thigh IVs and Medications Medications Reviewed: Medications were reviewed in detail Lab and Diagnostics Result Diagram: 10/18/16195210/17/16 005 Assessment & Plan 86-year-old white male with CHF,ESRD on HD, HTN, DM, COPD, CAD s/p CABG, s/p AAA repair, and liver cirrhosis p/w episode of fall Acute, active s/p fall, POA, hx suggestive of orthostic, possible micturition syncope or withdrawl from midodrine or medication induced from a1 antagonist, BP runs SBP80 -90s far below his baseline, although relatively asymptomatic, it is likely contributing to his presentation. Orthostatic vs + as pt was symptomatic. -pt remains clinically stable with blood transfusion, vs more stable with midodrine. -continue midorine 5mg tid, -hold home diuretics per , continue to hold BPH meds -telemetry given significant CAD hx, Superficial 12cm forehead laceration due to fall, s/p sutured, POA, CTH neg despite Aspirin use. -hold off aspirin for now -OP FU for surgery or ED for suture removal. anemia of chronic dz or kidney dz, probable GIB, POA, hgb7 close to the last one in dialysis yesterday 7.1. s/p 1unit on 10/17 and 1unit 10/18. tolerated well. FOBT+ and pt has new onset melena for 1month on aspirin concerning for UGIB. -start PPI 40mg bid, awaits GI eval for possible endoscopic intervention. -target hgb>9 given hx of CAD -serial cbc q12h for now, if it remains stable by tomorrow, consider GI w/u outpt. significant hypotension, hx of HTN, POA, management as above, hold off home ACEI. Chronic, stable ESRD on HD, HD as scheduled, appreciate renal recs. Diabetes mellitus, last a1c 7.0 in , controlled, continue with lispro SS , fsg qac hs. chronic HFrEF on diuretics, mildly overloaded on exam, ischemic cardiomyopathy, CAD s/p 5 vessel CABG, asymptomatic, COPD, controlled, chronic A. fib not on AC due to hx of SDH, pt was taking aspirin since episode of SDH. close neurocheck for any worsening neurologic sx/sign hepatic cirrhosis with anasarca, stable BPH, stable, hold off on terazosin. AAA repaired, not active dispo:d/c likely 1-2days home diet:renal dvt ppx:SCD DNR/DNI Time spent 35min Angel Shane MD Oct 19, 2016 08:38
[2016-10-19] MEDS: Arformoterol 15 mCg/2 mL Inhalation Solution INHALATION SCH ×2 (08:45→20:54)
[2016-10-19] MEDS: Pantoprazole 40 mg ER24 Tablet PO SCH ×2 (08:54→16:54)
--- NOTE | 2016-10-19 10:09 | NUR ---
Dialysis note presented to dialysis in stable condition, bandage to head CDI, left side of face bruised, A&Ox3 c\o ear pain and right thigh pain both are chronic issues L CVC, heparin dwell removed, both port flush and aspirate with ease last dressing change 10/16/16, tegaderm CDI, site benign, no s/s of infection treatment started pt resting comfortably Dr Hammond at bedside, orders to only pull 1000ml, administer 25% albumin 100ml and draw hgb pt tolerating treatment well, will continue to monitor Addendum: 10/19/16 at 1427 by MYNOR LARSON RN total treatment time 4.0 total net removed 1000ml treatment end, blood returned, heparin lock administered per limbs, heparin 1000u/ml, both ports flushed and locked with ease pt voiced no concerns tolerated treatment well Report called to Chely CORTEZ See DTR for complete treatment record
[2016-10-19] MEDS ORDERED: Albumin 25% 100 ML IV ONE ×2 (10:35→11:10)
--- NOTE | 2016-10-19 10:54 | PCM.PNNEPH ---
Subjective Date of Service Oct 19, 2016 Subjective He is seen during HD. BP on the low side, 95/54, asymptomatic. Antihypertensive meds and diuretics on hold. S/p PRBC x 2 units, Hb 8.7. (+) FOBT and black loose stool noted. Exam Vital Signs Vital Sign - Last Date Time Temp Pulse Resp B/P Pulse Ox O2 Delivery O2 Flow Rate FiO2 10/19/16 09:40 75 10/19/16 08:45 18 89 Room Air 10/19/16 06:12 36.7 103/52 10/18/16 19:57 2.00 Intake and Output 10/18/16 10/18/16 10/19/16 Cumulative From/Thru 15:00 23:00 07:00 10/17/16 04:55 - 10/19/16 00:30 Intake Total 400 ml 1319 ml 2922 ml Output Total 200 ml 850 ml Balance 400 ml 1119 ml 2072 ml Intake Oral 840 ml 1693 ml IV Total 100 ml 479 ml 629 ml Packed Cells 300 ml 600 ml Output Urine Total 200 ml 850 ml # Voids 3 3 # Bowel Movements 2 2 Exam General appearance: Awake, alert, oriented x3. No acute distress. HEENT: Dressing applied at the forehead. Mild pallor. No icteric sclerae. No JVD. No lymphadenopathy. No thyroid enlargement. Heart: Regular rhythm. Normal S1, S2. Systolic murmur noted. Lungs: Occasional coarse crackles at the bases. No wheezing. No rhonchi. Abdomen: Soft, active bowel sounds. Nontender. Nondistended. No hepatosplenomegaly. Extremities: No edema. Positive for wrinkled skin. Positive for chronic skin changes. Lab and Diagnostics Result Diagram: 10/18/16195210/17/16 005 Plan Impression 1. Status post ground level fall with head injury. 2. Chronic hypotension. 3. Anemia of chronic kidney disease s/p 2 units of PRBCs. (+) FOBT 4. End-stage renal disease, on hemodialysis. 4 hr, UF 1L, DFR 600, BFR 400, 3K, 35HCO3. revaclear, no heparin, right tunneled cath. 5. History of heart failure with reduced ejection fraction. 6. Pulmonary hypertension. 7. Valvular heart disease. 8. Chronic atrial fibrillation. 9. Liver cirrhosis. 10. Abdominal aortic aneurysm, status post endograft. PLAN: 1. Next HD on Wednesday. 2. Repeat hemoglobin after HD today. 3. Will given aranesp 100 mcg IV during HD. 4. Pending GI eval. 5. d/c midodrine. Terra Banks MD Oct 19, 2016 10:53
[2016-10-19] MEDS ORDERED: Darbepoetin Alfa 100 mCg/0.5 mL Inj IV ONE (10:55)
--- NOTE | 2016-10-19 11:14 | NUR ---
Off Unit: Patient transported to [facility] Rm 243 @ approx 1045 via bed. Report given to DANA Blue. dairy laboratory technician notified of transport, Afib 70's per press technician. Alert & oriented, no apparent distress noted at time of transport. Notified by [facility] that they received a call from [facility] that blood was ready for patient. Notified Elisabeth Hewitt propellant assembler, however do not see blood transfusion orders as yet. Addendum: 10/19/16 at 1208 by RENEE OBRIEN RN Continues to be on [facility] for dialysis. Unable to perform 4hr assessment and BG check at this time. Addendum: 10/19/16 at 1552 by RENEE OBRIEN RN Returned from [facility] at approx 1415. dairy laboratory technician notified. BG 110. Left shoulder, elbow and wrist skin tear dressing changed.
--- NOTE | 2016-10-19 15:35 | NUR ---
Social Work: Initial Assessment / Multidisciplinary Rounds Data: See initial assessment. Patient is a 86 year old male who was admitted on 10/17/16 for GLF, Hypotension & CRF per H&P. Patient's insurance is Medicare and [employer]. Patient's PCP is GEN Mcclellan. EMR reviewed. SW met with patient to discuss discharge planning. SW role explained. Patient states that he lives alone in a mobile home with six steps at the entrance. Home is located in [place]. Patient considers his brother Elijah to be his main support person. Patient confirms that his brother Elijah is his DPOA and that AD have been completed on his behalf. Patient states that he is I with all ADLs and care needs. Patient states that he uses a walker and a cane depending on the distance that he is traveling. Patient confirms that he drives and is able to provide his own transportation needs. Patient states that he is currently active with [facility]. Patient states that he receives RN and PT HH services. Patient states that in the past he has received rehab at [facility] and [facility]. Patient denies having jail care insurance. Upon discharge, patient states that transportation will be provided by his brother Elijah. SW provided patient with a discharge planning checklist and encouraged to call with any questions or concerns. Phone number provided. Patient was discussed in morning rounds. No concerns where noted by MD or staff. Patient will return home and resume services with [facility]. SW will continue to follow. Assessment: Patient will return home and resume services with [facility]. Plan: Patient will return home and resume services with [facility]. MD will need to place an order for resumption of home health services at time of discharge. Transportation will be provided by patient's brother Elijah. SW will continue to follow for additional needs. JANICE Elise Addendum: 10/19/16 at 1615 by JIGNA DONNELLY Amended: Links added. Addendum: 10/19/16 at 1616 by JIGNA PENA Patient is on hemodialysis and has a schedule of MWF. Hemodialysis is completed at [facility]. JANICE Elise
--- NOTE | 2016-10-19 17:36 | NUR ---
Telemetry: Notified by [facility], patient had 2 min run of bigeminal PVC, then returned to A Fib 70s. notified. No new orders received. Addendum: 10/19/16 at 1815 by RENEE OBRIEN RN Notified by [facility], patient had 5beats of V-Tach, then returned to A Fib 70s. Asymptomatic, patient had been resting w/eyes closed during event. text paged.
[2016-10-19 19:17] LABS: Magnesium 1.7 mg/dL (1.6-2.6)
[2016-10-19] MEDS: Fluticasone 250 mCg Inhaler INHALATION SCH (20:27)
[2016-10-19] MEDS: Insulin GLARgine 100 Unit/mL Syringe SUBQ SCH (20:36)
[2016-10-19 21:31] LABS: APPEARANCE,URINE TURBID (CLEAR,HAZY); COLOR,URINE YELLOW (YELLOW); OCCULT BLOOD,URINE SMALL (NEGATIVE); PH,URINE 8.5 (5.0-8.0); UROBILINOGEN,URINE NORMAL (NORMAL)
[2016-10-19] MEDS ORDERED: Magnesium Sulf 2 Gm/50mL Water 2 GM in IV Premix 1 EACH IV ONE (22:55)
[2016-10-20] VITALS (11 sets, daily range): BP systolic 91–115; BP diastolic 34–64; PULSE 71–80; RESP 16–18; O2SAT 91–97
--- NOTE | 2016-10-20 01:13 | NUR ---
DRESSING CHANGE, LAB RESULTS & LAB SPECIMENS Pt has dressing to head, CDI, not removed. Skin tears on Left elbow and wrist, dressings CDI, not changed. Dressing to left upper posterior back/shoulder w/ moderate amts of sero-sang dressing, skin tear wounds, weeping, dressing changed. Wound consult ordered to assess L head laceration and L shoulder/back for further care/instructions. Pt had episodes of V.tach and bigeminal PVCs per telemetry during day shift per report, pt asymptomatic, labs ordered. Noc hospitalist notified of Mg level of 1.7, new orders rec'd, 2g IV Mg rider administered. Urine sample sent at start of shift per routine orders d/t pts age, culture indicated. Pt had dark brown/black formed stool, sample sent for stool PCR per orders. Addendum: 10/20/16 at 0417 by ARON VIEIRA RN Pt had another BM during shift, displayer brown in color, not dark like previous stool. No visible or tung blood.
[2016-10-20 06:35] LABS: BASOPHILS % (AUTO) 0.5 % (0-3); EOSINOPHILS % (AUTO) 1.7 % (0-5); MONOCYTES % (AUTO) 13.8 % (4-12); Mean Corpuscular Hemoglobin 31.6 pg (27.0-35.0); Mean Corpuscular Volume 100.4 fL (81-100); NEUTROPHILS % (AUTO) 65.8 % (40-74); Platelet Count 110 bil/L (150-400)
[2016-10-20] MEDS: Insulin LISPRO 300 Unit/3 mL Inj SUBQ SCH ×4 (08:00→20:32)
[2016-10-20 08:20] LABS: Phosphorus 3.2 mg/dL (2.5-4.9)
[2016-10-20] MEDS: Arformoterol 15 mCg/2 mL Inhalation Solution INHALATION SCH ×2 (08:42→20:47)
--- NOTE | 2016-10-20 09:28 | CONS ---
[address] [address] CONSULTATION REPORT PATIENT: XIOMARA CONNORS : 1930 MR#: [id number] ADMIT: 10/17/2016 JOB ID: [id number] DATE OF SERVICE: 10/19/2016 GASTROENTEROLOGY CONSULTATION: REASON FOR CONSULTATION: Melena. It was a pleasure seeing the patient at [facility] GI service for evaluation of melena. This is an 86-year-old gentleman with past medical history of CAD status post CABG in 1982 followed by a redo bypass in 1992 due to ischemic cardiomyopathy with [id number] MR, severe pulmonary hypertension with cor pulmonale with predominant right heart failure complicated by ascites, cirrhosis of the liver and anasarca. The patient also has underlying chronic AFib, high blood pressure, diabetes, chronic renal insufficiency, underlying COPD with history of tobacco abuse with abdominal aortic aneurysm status post endovascular repair at [facility] and history of subdermal hematoma and falls off anticoagulation. The patient also has a history of end-stage renal disease and is on dialysis currently. The patient came to the hospital after a fall. He was getting out of a toilet and he said he had lost his balance and fell down. Hit his head on the bathtub and was found to be bleeding. He came to the emergency department with 911 and his anemia got worse and he was given two units of blood. He was admitted through the ED on October 17 with head trauma. The hospitalist admitted the patient and watched him. There was no neurological deficit, but he had significant amount of bruising on his forehead. However, for the past week or so, he said he started having black stools. It happened maybe once a day usually but no more than twice a day. Did not occur every day. He noticed this and he was also getting IV iron infusion. Also, during this time, he is not sure if he was taking iron supplements as well. However, he complains that he has been getting black stools even when in the hospital. Last time he had a bowel movement was this morning and he informed me that he did have black stools. When he does have black stools, it is usually formed. Small in amount. Does not require multiple bowel movements. He has no other associated symptoms such as nausea, vomiting, abdominal pain. Currently, he is feeling well. He just got out of dialysis. He felt hungry and he was eating when I saw him. He denies any nausea, vomiting, fever, chills, headaches, blurred vision, dizziness, lightheadedness, chest pain, shortness of breath, abdominal pain. He did not see any fresh blood in the stools. He does take a baby aspirin. PAST MEDICAL HISTORY: 1. Diabetes. 2. CHF. 3. CAD. 4. Ischemic cardiomyopathy status post CABG. 5. COPD. 6. Hypertension. 7. Chronic AFib, not on anticoagulation. 8. Cirrhosis. 9. BPH. 10. AAA repair. 11. Moderate cor pulmonale. PAST SURGICAL HISTORY: 1. AAA repair. 2. Cholecystectomy. 3. Cataract. FAMILY HISTORY: CVA and HI. SOCIAL HISTORY: Did use tobacco in the past. Denies use of alcohol or drugs. MEDICATIONS: Here including insulin, pantoprazole, primidone, ophthalmic solution, Brovana inhaled solution, multivitamin, Flonase, fluticasone, dorzolamide ophthalmic solution, allopurinol, B12, Tylenol, Xalatan ophthalmic solution, atorvastatin, lidocaine p.r.n. PHYSICAL EXAMINATION: The patient is alert, oriented, does appear comfortable. Vitals include temperature of 36.6, pulse 65, respiration 18, blood pressure 114/47. Head and neck. No obvious icterus, lymphadenopathy. Lungs: Clear. Cardiovascular: Regular rate and rhythm. Normal S1, S2. No murmur noted. Systolic ejection murmur grade 2. Abdomen: Soft, nontender, nondistended with normoactive bowel sounds. Extremities: 1+ pitting edema. Skin shows no obvious jaundice but he has multiple bruising. Radial pulses bilaterally strong and intact. No icterus on eye examination. LABORATORY DATA: BUN 49, creatinine 3.27, calcium 8.4, alkaline phosphatase 168, total protein 3.6, albumin 3.8. AST, ALT were normal. Total bilirubin 0.8. INR has not been done. His hemoglobin is 8.3 as of 10 o'clock this morning. Platelets are 91,000. MCV is elevated at 101.1. IMPRESSION and PLAN: An 86-year-old gentleman with cor pulmonale with chronic obstructive pulmonary disease and ischemic cardiomyopathy with hepatic steatosis complicated by cirrhosis. I was talking to the nurse about the patient's bowel movement. According to the nursing staff, she did not see melena. However, guaiac was positive, and I was informed that the patient had one bowel movement this morning. However, the patient had three bowel movements. He is hemodynamically stable. Hemoglobin andrews he seems to be going from 8.7 to 8.3, but he has multiple blue bruises throughout his body. Since he reported seeing melena, we will proceed with an upper endoscopy with anesthesia support due to his multiple medical issues, but I did see that the patient's hemoglobin is 8.3 as of 10 o'clock this morning. Yesterday was 8.7. We will see what his hemoglobin is later today and tomorrow morning. It was recommended the patient should be placed n.p.o. for now and will proceed with upper endoscopy tomorrow. However, I would advise the primary service to make sure he is not bleeding internally such as in the abdomen or between the muscle layers because he has a significant amount of bruising throughout his arms, his face. We will follow his H and H. MTDD
[2016-10-20] MEDS: Brimonidine 0.2% 5 mL Ophthalmic Solution LEFT_EYE SCH ×3 (10:16→20:32)
[2016-10-20] MEDS: Fluticasone 250 mCg Inhaler INHALATION SCH ×2 (10:16→20:30)
[2016-10-20] MEDS: Dorzolamide 2% 10 mL Ophthalmic Solution BOTH_EYES SCH ×2 (10:16→20:32)
[2016-10-20] MEDS: Lidocaine 5% 35.5 Gm Ointment TOPICAL PRN (10:17)
--- NOTE | 2016-10-20 10:41 | NUR ---
Social Work-readiness for discharge: Data:EMR reviewed. Pt is on day 3 of hospitalization for GLF per H&P. Pt is not medically stable anticipate 1-2 more days.s Pt resides at home alone. Pt has been cleared by PT for home. Pt is currently open with [facility] for Rn and PT. MD order received for resume HH services. SW updated Yadira with [facility] of pt's admission and provided her with access. Pt will need resume HH orders at discharge. SW will continue to follow. Assessment:Pt who has HH services. Plan:Pt to discharge home when medically stable via POV. Pt is open with [facility] for RN and PT, resume orders will be needed at discharge. SW will continue to follow. JANICE Victor
--- NOTE | 2016-10-20 10:49 | PCM.PNNEPH ---
Subjective Date of Service Oct 20, 2016 Subjective HD yesterday without complications. Denies melena overnight. Hb 7.7, trending down. NPO for EGD today. Exam Vital Signs Vital Sign - Last Date Time Temp Pulse Resp B/P Pulse Ox O2 Delivery O2 Flow Rate FiO2 10/20/16 09:30 36.8 71 18 91/44 94 Nasal Cannula 2.00 Intake and Output 10/19/16 10/19/16 10/20/16 Cumulative From/Thru 15:00 23:00 07:00 10/17/16 04:55 - 10/20/16 05:53 Intake Total 300 ml 736 ml 275 ml 4233 ml Output Total 1575 ml 300 ml 2725 ml Balance -1275 ml 736 ml -25 ml 1508 ml Intake Oral 300 ml 736 ml 200 ml 2929 ml IV Total 75 ml 704 ml Packed Cells 600 ml Output Urine Total 575 ml 300 ml 1725 ml Ultrafiltrate 1000 ml 1000 ml # Voids 5 3 3 14 # Bowel Movements 3 1 2 8 Exam General appearance: Awake, alert, oriented x3. No acute distress. HEENT: Dressing applied at the forehead. Mild pallor. No icteric sclerae. No JVD. No lymphadenopathy. No thyroid enlargement. Heart: Irregular rhythm. Normal S1, S2. Systolic murmur noted. Lungs: Occasional coarse crackles at the bases. No wheezing. No rhonchi. Abdomen: Soft, active bowel sounds. Nontender. Nondistended. No hepatosplenomegaly. Extremities: No edema. Positive for wrinkled skin. Positive for chronic skin changes. Lab and Diagnostics Result Diagram: 10/20/1662310/20/16623 Plan Impression 1. Status post ground level fall with head injury. 2. Chronic hypotension. 3. Anemia of chronic kidney disease s/p 2 units of PRBCs. (+) FOBT s/p Aranesp IV 100 mcg on 10/19. 4. End-stage renal disease, on hemodialysis. 5. History of heart failure with reduced ejection fraction. 6. Pulmonary hypertension. 7. Valvular heart disease. 8. Chronic atrial fibrillation. 9. Liver cirrhosis. 10. Abdominal aortic aneurysm, status post endograft. PLAN: 1. Next HD on Wednesday. 2. Resume lower dose of aldactone 50 mg daily, resume metoprolol XL 25 mg daily. 3. Blood transfusion with HD in am. Terra Banks MD Oct 20, 2016 10:49
--- NOTE | 2016-10-20 13:21 | PCM.ANEPRE ---
Anesthesia Pre-Op Review Reason for Review: EGD/Colonoscopy Anesthesia Recommendations: Delay until Additional Data Obtain Additional Comments 86yo M with hx of Severe Pulm HTN with cor pulmonale and biventricular CHFrEF 45 %, atrial fibrillation, mod-severe TR, CAD s/p CABGx2, oxygen dependent COPD, cirrhosis with anasarca, ESRD s/p HD yesterday via tunneled dialysis cath, IDDM , and recent syncopal event resulting in head trauma with 12cm skull laceration and large ecchymoses of skull and face found to have melena and acute anemia requiring blood transfusion presenting now for EGD/Colonoscopy. His HCT appears to slowly fall yet, but his melena is reported to have stopped. He was scheduled for an AV fistula several weeks ago, which was cancelled given grave concerns over this very high risk patient to have and tolerate general anesthesia. After speaking with Dr. Isaac, there are less invasive alternatives to consider not requiring GA, and which may be less risky in causing unintentional harm given the fragility of his tissues since his melena may have resolved and there are certainly other possible contributors to ongoing HCT drop (head lac/contusion, internal, etc) that would be less risky to this very high risk individual. These concerns were discussed with Mr. Jones and this very stoic man agreed avoiding unnecessary risk at this time seemed reasonable. Maurisio Muro MD Anesthesiology Raul Muro MD Oct 20, 2016 13:21
[2016-10-20] MEDS: Pantoprazole 40 mg ER24 Tablet PO SCH ×2 (14:03→17:18)
--- NOTE | 2016-10-20 15:09 | NUR ---
Inpatient Wound Nurse Patient seen for multiple wounds resultant of recent fall. L lateral wrist wound 2 cm L x 1.5 cm W x 0.1 cm D. Bright, beefy red tissue, small amount of sanguinous drainage noted on removed gauze. Periwound extensively bruised. L elbow wound 1 cm L x 2.5 cm W x 0.1 cm D. Bright, beefy red tissue, small amount of sanguinous drainage noted on removed gauze. Periwound extensively bruised. L shoulder wound 2.5 cm L x 5.5. cm W x 0.1 cm D. Bright, beefy red tissue, small amount of sanguinous drainage noted on removed gauze. Extensive bruising of periwound. Forehead laceration measures 12 cm in total length, in shape of upside down L. Sutures intact and all margins approximated. Extensive bruising in variable shades. All wounds were blotted with NS and sterile gauze, then blotted dry. Wounds were covered with nonstick gauze and clear adhesive dressings except for head wound which was covered with nonstick gauze and Kerlix. [facility] he was seen prior to admission. CWON will see every other day for wound care until discharge.
--- NOTE | 2016-10-20 15:42 | PCM.PNMED ---
Subjective Date of Service Oct 20, 2016 Subjective pt was tentatively scheduled for EGD however, given cardiac risks per Anesthesia , it was canceled. pt denied having epigastric pain, CBC this AM remained low, however, stools became brown. Exam Vital Signs Vital Sign - Last Date Time Temp Pulse Resp B/P Pulse Ox O2 Delivery O2 Flow Rate FiO2 10/20/16 13:28 36.7 76 18 92/57 91 Nasal Cannula 2.00 Intake and Output 10/19/16 10/19/16 10/20/16 Cumulative From/Thru 15:00 23:00 07:00 10/17/16 04:55 - 10/20/16 05:53 Intake Total 300 ml 736 ml 275 ml 4233 ml Output Total 1575 ml 300 ml 2725 ml Balance -1275 ml 736 ml -25 ml 1508 ml Intake Oral 300 ml 736 ml 200 ml 2929 ml IV Total 75 ml 704 ml Packed Cells 600 ml Output Urine Total 575 ml 300 ml 1725 ml Ultrafiltrate 1000 ml 1000 ml # Voids 5 3 3 14 # Bowel Movements 3 1 2 8 Exam NAD, comfortably laying down on the bed no JVD, MMM, no LAD, forehead sterilely dressed RRR, nl s1, s2 no mrg CTAB, no w,c S,ND,NT,normoactive BS+ warm, no edema, pulses 2/2, no td on Rt anterior thigh IVs and Medications Medications Reviewed: Medications were reviewed in detail Lab and Diagnostics Result Diagram: 10/20/1662310/20/16623 Assessment & Plan 86-year-old white male with CHF,ESRD on HD, HTN, DM, COPD, CAD s/p CABG, s/p AAA repair, and liver cirrhosis p/w episode of fall Acute, active s/p fall, POA, hx suggestive of orthostic, possible micturition syncope or withdrawl from midodrine or medication induced from a1 antagonist, BP runs SBP80 -90s far below his baseline, although relatively asymptomatic, it is likely contributing to his presentation. Orthostatic vs + as pt was symptomatic. -pt remains clinically stable with blood transfusion, midodrine -s/p midorine 5mg tid 10/18-, stopped per -hold home diuretics per , continue to hold BPH meds -telemetry given significant CAD hx, Superficial 12cm forehead laceration due to fall, s/p sutured, POA, CTH neg despite Aspirin use. -hold off aspirin for now -OP FU for surgery or ED for suture removal. anemia of chronic dz or kidney dz, probable GIB, POA, hgb7 close to the last one in dialysis yesterday 7.1. s/p 1unit on 10/17 and 1unit 10/18. tolerated well. FOBT+ and pt has new onset melena for 1month on aspirin concerning for UGIB. -h/h keep trending down without active s/s of bleeding -continue PPI 40mg bid, EGD canceled after weighing risks and benefits per GI/ anesthesia, -target hgb>9 given hx of CAD, will consider more transfusion given h/h today. -serial cbc q12h for now, significant hypotension, hx of HTN, POA, management as above, hold off home ACEI , midodrine was held per , remained stable. Chronic, stable ESRD on HD, HD as scheduled, appreciate renal recs. Diabetes mellitus, last a1c 7.0 in , controlled, continue with lispro SS , fsg qac hs. chronic HFrEF on diuretics, mildly overloaded on exam, try achieve dry wt from HD. ischemic cardiomyopathy, CAD s/p 5 vessel CABG, asymptomatic, COPD, controlled, chronic A. fib not on AC due to hx of SDH, pt was taking aspirin since episode of SDH. close neurocheck for any worsening neurologic sx/sign hepatic cirrhosis with anasarca, stable BPH, stable, hold off on terazosin. AAA repaired, not active dispo:d/c likely 1-2days home diet:renal dvt ppx:SCD DNR/DNI Time spent 35min Angel Shane MD Oct 20, 2016 15:42
[2016-10-20] MEDS: MeTOProlol XL 25 mg ER24 Tablet PO SCH (17:18)
--- NOTE | 2016-10-20 18:42 | NUR ---
Activity Pt denied pain, dizziness and confusion during shift. Pt up to stand at bedside for urination. Appropriately uses call light as instructed. Steady when on feet, but continuing SBA while OOB for safety d/t blood levels and blood pressure. Pt had no near falls during shift.
[2016-10-20] MEDS: Insulin GLARgine 100 Unit/mL Syringe SUBQ SCH (20:39)
[2016-10-21] VITALS (13 sets, daily range): BP systolic 86–113; BP diastolic 45–62; PULSE 65–77; RESP 16–20; O2SAT 93–98
--- NOTE | 2016-10-21 04:47 | NUR ---
PT ACTIVITY/EAR PAIN Pt has been up to BR a few times during shift. Pt is a SBA, tolerates activity fairly well. Pt has had c/o intermittent left ear pain. Pt reports having this pain, "for a while, before I fell, I put an antibiotic in it and it feels better." Pt has asked for prn tylenol, which then pt is able to have some pain relief. Continue to monitor. Call light in reach. Bed alarm on. Intentional rounding.
[2016-10-21 06:33] LABS: BASOPHILS % (AUTO) 0.2 % (0-3); MONOCYTES % (AUTO) 10.3 % (4-12); Mean Corpuscular Hemoglobin 32.7 pg (27.0-35.0); Mean Corpuscular Volume 100.8 fL (81-100); NEUTROPHILS % (AUTO) 69.2 % (40-74); Platelet Count 108 bil/L (150-400)
[2016-10-21] MEDS: Arformoterol 15 mCg/2 mL Inhalation Solution INHALATION SCH (07:39)
[2016-10-21] MEDS: MeTOProlol XL 25 mg ER24 Tablet PO SCH (07:57)
[2016-10-21] MEDS: Insulin LISPRO 300 Unit/3 mL Inj SUBQ SCH ×2 (08:00→12:00)
[2016-10-21] MEDS: Fluticasone 250 mCg Inhaler INHALATION SCH (08:14)
[2016-10-21] MEDS: Pantoprazole 40 mg ER24 Tablet PO SCH (08:14)
[2016-10-21] MEDS: Dorzolamide 2% 10 mL Ophthalmic Solution BOTH_EYES SCH (08:14)
[2016-10-21] MEDS: Brimonidine 0.2% 5 mL Ophthalmic Solution LEFT_EYE SCH ×2 (08:15→14:30)
--- NOTE | 2016-10-21 08:33 | NUR ---
Off unit Pt off unit to dialysis, build technician aware. Addendum: 10/21/16 at 1404 by ANDREI WALL RN Pt back on unit, report rec'd from DANA Bui. Blood sugar obtained at noon: 116. Pt A&Ox4, denies any pain at this time. Reports his ride is on the way as he has dc orders. Bed in lowest, locked position and call light in reach.
[2016-10-21] MEDS ORDERED: SPIR100T3 PO (09:27)
[2016-10-21] MEDS ORDERED: Albumin 25% 100 ML IV ONE (09:35)
--- NOTE | 2016-10-21 10:39 | PCM.PNNEPH ---
Subjective Date of Service Oct 21, 2016 Subjective Upper endoscopy was consult given significant history of right-sided heart failure and pulmonary hypertension. Patient is seen during hemodialysis. He has no chest pain or shortness of breath. He will receive another unit of blood during dialysis today. Exam Vital Signs Vital Sign - Last Date Time Temp Pulse Resp B/P Pulse Ox O2 Delivery O2 Flow Rate FiO2 10/21/16 10:24 36.6 66 16 103/56 10/21/16 08:11 Supplement Oxygen 10/21/16 07:40 93 2.00 Intake and Output 10/20/16 10/20/16 10/21/16 Cumulative From/Thru 15:00 23:00 07:00 10/17/16 04:55 - 10/21/16 06:46 Intake Total 772 ml 250 ml 5255 ml Output Total 305 ml 3030 ml Balance 467 ml 250 ml 2225 ml Intake Oral 772 ml 250 ml 3951 ml IV Total 704 ml Packed Cells 600 ml Output Urine Total 305 ml 2030 ml Ultrafiltrate 1000 ml # Voids 4 4 22 # Bowel Movements 0 3 11 Exam General appearance: Awake, alert, oriented x3. Not in acute distress. HEENT: Dressing applied at the forehead. Ecchymosis on frontal area and periorbital areas. Mild pallor. No icteric sclerae. No lymphadenopathy. No thyroid enlargement. Heart: Irregular rhythm. Normal S1, S2. Systolic murmur noted. Lungs: Occasional coarse crackles at the bases. No wheezing. No rhonchi. Abdomen: Soft, active bowel sounds. Nontender. Nondistended. No hepatosplenomegaly. Extremities: No edema. Positive for wrinkled skin. Positive for chronic skin changes. Lab and Diagnostics Result Diagram: 10/21/1661910/21/16619 Plan Impression 1. Status post ground level fall with head injury. 2. Chronic hypotension. 3. Anemia of chronic kidney disease s/p 2 units of PRBCs. (+) FOBT, high risk for general anesthesia, endoscopy was canceled. 4. End-stage renal disease, on hemodialysis. 4 hr, UF 1L, DFR 600, BFR 400, 3K, 35HCO3. revaclear, no heparin, right tunneled cath. 1 unit packed RBC 5. History of heart failure with reduced ejection fraction. 6. Pulmonary hypertension. 7. Valvular heart disease. 8. Chronic atrial fibrillation. 9. Liver cirrhosis. 10. Abdominal aortic aneurysm, status post endograft. PLAN: 1. If stable, patient can be discharged home after hemodialysis today. 2. Continue metoprolol XL 25 mg once a day, decrease Aldactone to 25 mg once a day, decrease fosinopril 5 mg once a day. Terra Banks MD Oct 21, 2016 10:39
--- NOTE | 2016-10-21 11:03 | NUR ---
dialysis note pt presented in stable condition, normal low BP, no c/o pain bruising to face and bandage to head CDI cath dwell removed, both port flush and aspirate with ease treatment started without complications CVC dressing change, removed old dressing, dressing CDI, no signs of infection, site benign, site cleaned with chloraprep and allowed to dry, sterile dressing applied, tolerated well Addendum: 10/21/16 at 1449 by MYNOR LARSON RN 1 unit of packed RBC's and albumin 25% 100ml administered during treatment, tolerated well, no reaction noted treatment ended total treatment time 4.0 total net removed 1500ml, pt tolerated well blood returned, both ports flushed and locked with heparin 1000u/ml Report was called to Ryann CORTEZ pt was discharged in stable condition, no c/o pain See DTR for complete dialysis record
--- NOTE | 2016-10-21 11:22 | PCM.DIMED ---
Discharge Instructions Date of Service Oct 21, 2016 Dates of Hospitalization Oct 17, 2016 at 09:02 Discharge Diagnosis Discharge Diagnosis acute dx s/p fall, POA, hx suggestive of orthostic, possible micturition syncope or withdrawl from midodrine or medication induced from a1 antagonist for BPH, Superficial 12cm forehead laceration due to fall, s/p sutured Aanemia of chronic dz or kidney dz, probable upper GIB Significant hypotension, hx of HTN, as above Chronic dx ESRD on HD Diabetes mellitus chronic HFrEF on diuretics, ischemic cardiomyopathy, CAD s/p 5 vessel CABG, COPD chronic A. fib not on AC due to hx of SDH, hepatic cirrhosis with anasarca BPH AAA repaired Medication Instructions Additional med instructions Your prostate medication: Flomax, Terazosin were held. Please discontinue until further notice. Please also stop taking Torsemide as per kidney doctor, you can continue Spironolactone 50mg( from 100mg) daily Please note that Fosinopril was also stopped given your blood pressure. Please take Pantoprazole 40mg daily given concern for possible stomach bleeding, Diet Discharge Diet: Renal Diet Activity Discharge Activity: No restrictions Patient Instructions Patient Instructions You were hospitalized after episode of fall from dizziness. You were found to have significantly low blood pressure, likely contributed to your dizziness and fall. You required multiple blood transfusion given severe blood loss anemia, however, given your baseline heart condition, endoscopy was not persued. Since your are in stable condition but high risks fall, your underlying medical condition, resume home health, physical therapy, nursing at home. Please take extra caution when you walk especially when your feel lightheaded, take time to move. Please continue dialysis and medication as instructed above Given concern for stomach bleeding, you were strongly recommended to see GI doctor in the clinic for possibly referral to tertiary hospital at . Follow-up Provider: Lam Duron MD Follow-up with PCP in: 1 week Angel Shane MD Oct 21, 2016 11:10
[2016-10-21] MEDS ORDERED: PANT40TA3 PO (11:43)
--- NOTE | 2016-10-21 12:07 | NUR ---
Social Work-discharge: Data:EMR Reviewed .pt is on day 4 of hospitalization for GLF per H&P. Pt is medically stable for discharge. PT has cleared pt for home with services. Pt is open with [facility] , GENARO updated Yadira with [facility] that pt is ready to discharge. Resume HH RN and PT orders have been provided. Pt's family to provide transport home. No discharge needs identified. All updated and agreeable to plan. Assessment:Pt who is open with HH. Plan:Pt to discharge home today via POV. Resume RN and PT orders have been provided to [facility]. All updated and agreeable to plan. JANICE Victor
--- NOTE | 2016-10-21 15:35 | NUR ---
DISCHARGE Pt dc'd home this afternoon at 1530, off unit in w/c accompanied by [employer] and pt's brother in law. Vital signs stable, A&Ox4, denies any pain and in no apparent distress. Pt's port a cath remains intact, all belongings returned. All instructions for diet, activity, medications and follow up reviewed with pt who reports understanding. Discussed follow up with restarting medications/wound care with PCP.
--- NOTE | 2016-10-21 15:45 | NUR ---
Inpatient Wound Nurse Patient was phoned by this CRISTIANOON RN at [phone] and instructed that follow up appointment at [facility] is scheduled for Thursday 11/02 at 10:30 am which is 90 minutes prior to dialysis in adjacent building. Patient has history of wound care for skin tears at [facility] and agreeable to visit with GEN Lowry. He is aware that if sutures are not dissolvable, and PCP has not removed them by that date, they may be removed at this visit.
--- NOTE | 2016-10-21 15:58 | PCM.PNMED ---
Subjective Date of Service Oct 21, 2016 Subjective GASTROENTEROLOGY PROGRESS NOTE: Attending Physician: Juanpablo Isaac MD Resident Physician: Reena Maza DO Patient is doing well this afternoon. He is ambulating in his room without difficult and visiting with his brother. He denies dizziness, weakness, abdominal pain, nausea, vomiting, shortness of breath, and chest pain. He states that he has had two BM that were brown in color and without evidence of any blood. He and his brother are in agreement that he wishes to pursue further evaluation with EGD in the outpatient setting. He states that because the melena has stopped he prefers to observe this for now and followup with his Cardiology and PCP to discuss his options moving forward. Exam Vital Signs Vital Sign - Last Date Time Temp Pulse Resp B/P Pulse Ox O2 Delivery O2 Flow Rate FiO2 10/21/16 14:06 36.8 72 18 104/57 98 Nasal Cannula 2.00 Intake and Output 10/20/16 10/20/16 10/21/16 Cumulative From/Thru 15:00 23:00 07:00 10/17/16 04:55 - 10/21/16 06:46 Intake Total 772 ml 250 ml 5255 ml Output Total 305 ml 3030 ml Balance 467 ml 250 ml 2225 ml Intake Oral 772 ml 250 ml 3951 ml IV Total 704 ml Packed Cells 600 ml Output Urine Total 305 ml 2030 ml Ultrafiltrate 1000 ml # Voids 4 4 22 # Bowel Movements 0 3 11 Exam General: Chronically ill-appearing, non-toxic elderly male in no acute distress. Appropriately interactive. HEENT: Midline forehead laceration w/intact sutures and no bleeding or drainage noted; dressing C/D/I. Significant facial ecchymosis left > right. PERRLA, no scleral icterus. Mucous membranes moist/pink Pulmonary: Increased kyphosis, symmetric chest rise w/equal air entry. Lungs clear to auscultation Cardiovascular: Distant heart tones, somewhat difficult to auscultate but appears irregular rhythm and regular rate w/ systolic murmur Abdomen: Soft, Non-tender, Non-distended, No masses, Normoactive bowel tones. Scattered ecchymosis across his trunk Extremities: No edema. Scattered ecchysmosis upper/lower ext bilaterally. Left deltoid covered w/dressing- clean, dry, and intact Skin: Warm and dry. Chronic skin changes and seborrhoiec keratosis noted trunk/ upper ext. Ecchymosis as above Neurological: AOx3, No focal neurologic deficit. Normal speech IVs and Medications Medications Reviewed: Medications were reviewed in detail Lab and Diagnostics Laboratory Tests Test 10/21/16 06:20 White Blood Count 6.0th/mm3 (3.8-10.1) Red Blood Count 2.51mil/mm3 (4.40-5.80) Hemoglobin 8.2g/dL (13.8-17.2) Hematocrit 25.3% (41.0-50.0) Mean Corpuscular Volume 100.8fL (81-100) Mean Corpuscular Hemoglobin 32.7pg (27.0-35.0) Mean Corpuscular Hemoglobin Concent 32.4% (32.0-37.0) Red Cell Distribution Width 18.3% (12.3-15.4) Platelet Count 108bil/L (150-400) Neutrophils (%) (Auto) 69.2% (40-74) Lymphocytes (%) (Auto) 17.1% (14-46) Monocytes (%) (Auto) 10.3% (4-12) Eosinophils (%) (Auto) 3.0% (0-5) Basophils (%) (Auto) 0.2% (0-3) Sodium Level 135mEq/L (134-144) Potassium Level 4.3mEq/L (3.5-5.2) Chloride Level 97mEq/L (97-108) Carbon Dioxide Level 22mmol/L (18-29) Blood Urea Nitrogen 49mg/dL (8-27) Creatinine 3.62mg/dL (0.76-1.27) Estimat Glomerular Filtration Rate 17mL/min (>59) Glucose Level 114mg/dL (60-99) Calcium Level 8.3mg/dL (8.5-10.1) Total Bilirubin 1.1mg/dL (0.0-1.2) Aspartate Amino Transf (AST/SGOT) 19U/L (0-50) Alanine Aminotransferase (ALT/SGPT) 15U/L (0-44) Alkaline Phosphatase 153U/L (25-160) Total Protein 5.5g/dL (6.4-8.4) Albumin 3.3g/dL (3.4-5.0) Microbiology 10/19/16 Stool PCR- Negative 10/19/16 Urine Culture - Morganell Morganii Sp Morganii Result Diagram: 10/21/16 0620 10/21/16 0620 X-Rays, CTs and MRIs 10/17/16 - CT BRAIN WITHOUT CONTRAST IMPRESSION: 1. No acute intracranial abnormalities after fall. 2. Left forehead scalp soft tissue swelling consistent with hematoma formation. 3. Persistent patchy dependent left mastoid air cell fluid, possibly mastoiditis. Approved by: John Spann M.D. on 10/17/2016 at 7:09 . Assessment & Plan 86-year-old male with a history of diabetes, ESRD on HD, COPD, CAD status post CABGx2, HTN, Afib (not on anticoagulation), AAA s/p endovascular repair, severe pulmonary hypertension with cor pulmonale complicated by ascites, cirrhosis of the liver and anasarca who presented to the ED after a ground level fall at home. GI consulted for melena. Acute blood loss anemia secondary to probable upper GI bleed in a patient with complex cardiac history, cirrhosis, and ESRD. - Recommend further evaluation for source of bleeding via EGD. However, due to patient's significant comorbidities this has proved to be more difficult. Case was reviewed with Anesthesiology and EGD canceled given his high risk for anesthesia. At this point, the patient remains hemodynamically stable and H/H is also stable with no overt signs of active bleeding. Patient reports resolution of melena and despite recommendation to be transfer to a tertiary care center for further evaluation for EGD, prefers to pursue this an outpatient. Counseled the patient regarding the reason for referral to facility with a higher level of care and potential complications associated with ongoing GI bleed. Therefore going to higher level care was recommended. Patient verbalizes an understanding to this plan and agrees to followup with his PCP and Cardiology. Additional problems managed by primary Hospitalist and/or Nephrology - ESRD on HD - Diabetes mellitus - Chronic HFrEF - Ischemic cardiomyopathy, CAD s/p 5 vessel CABG, asymptomatic, - COPD - Chronic A. fib not on AC due to hx of SDH - Hepatic cirrhosis with anasarca - BPH - AAA . I saw and examined the patient and agree with above. Reena Maza DO Oct 21, 2016 15:22 Juanpablo Isaac MD Oct 23, 2016 09:23
--- NOTE | 2016-10-21 20:01 | PCM.DC.MED ---
Discharge Summary Date of Service Oct 21, 2016 Dates of Hospitalization Date of Hospital Admission Oct 17, 2016 at 09:02 Date of Discharge: Oct 21, 2016 Providers: Admitting Physician: Angel Buckley MD Primary Care Physician: Tamy Johnson Attending Physician: Angel Buckley MD Diagnosis at Time of Discharge Diagnosis at Time of Discharge acute dx s/p fall, POA, hx suggestive of orthostic, possible micturition syncope or withdrawl from midodrine or medication induced from a1 antagonist for BPH, Superficial 12cm forehead laceration due to fall, s/p sutured Aanemia of chronic dz or kidney dz, probable upper GIB Significant hypotension, hx of HTN, as above Chronic dx ESRD on HD Diabetes mellitus chronic HFrEF on diuretics, ischemic cardiomyopathy, CAD s/p 5 vessel CABG, COPD chronic A. fib not on AC due to hx of SDH, hepatic cirrhosis with anasarca BPH AAA repaired Consultations GI endocrinology Procedures XRay, CTs & MRIs 10/17/16 - CT BRAIN WITHOUT CONTRAST IMPRESSION: 1. No acute intracranial abnormalities after fall. 2. Left forehead scalp soft tissue swelling consistent with hematoma formation. 3. Persistent patchy dependent left mastoid air cell fluid, possibly mastoiditis. Approved by: John Spann M.D. on 10/17/2016 at 7:09 . Brief History HPI obtained on 10/17 86-year-old white male with CHF,ESRD on HD, HTN, DM, COPD, CAD s/p CABG, s/p AAA repair, and liver cirrhosis p/w episode of fall Last night, patient was on the toilet, when he stood up, felt like he was losing balance, new that he was falling down. Fell down and hit his head at the bath tub. Patient did not pass out before or after fall. Had to stop bleeding with towel then called 911. pt denied having any chest pain, palpitations, blurry vision, headache, slurred speech, numbness and tingling, difficulty breathing, nausea prior to fall. Patient's general health was okay recently. except that patient felt little weak for the past week after dialysis , pt was told that he required 2 pints of blood. Despite chronic anemia, patient denied any postural dizziness. Patient has been eating okay with normal appetite, occasionally had diarrhea but unchanged from baseline. Patient also has been compliant to dialysis for the past 5 months. Patient also admitted to take all of the medicines he was supposed to take, including diuretics and aspirin. His PCP change his medicine a few weeks ago from 7 pills of torsemide to 6 pills(3tab bid), otherwise no change of medicine recently by PCP or billing and quality technician as per the patient. ROS: Patient denied fever, chills, chest pain, constipation, diarrhea, nausea, vomiting, recent travel, sick contact. Patient lives alone independently, brother is visiting often. In ED, VS BP running low, 90/40. orthostatic VS boarderline+ 84/40 to 77/33 on standing, with sx. trauma w/u CTH showed left frontal head soft tissue swelling suggestive of hematoma, which is consistent to lacerated forehead 12cm triangular flap laceration, sutured. Hospital Course Pt was admitted after fall, resulted with minor laceration. pt was noted to be severely hypotensive to 70/40, with mentation stable, pt was also noted to have low h/h from baseline and melena with FOBT+. pt was started on midodrine for low BP, held diuretics, BP meds. BP subsequently elevated, pt became more steady on ambulation, was not orthostatic at the time of d/c, HH/PT/RN will be resumed. pt was consulted by GI, given melena, however, given high risks for anesthesia, EGD was canceled. pt was started on PPI 40mg bid, eventually 40mg qd and noticed stools turned brown during hospitalization, although pt will likely need GI w/u, given stable v/s, normalized stools, stable h/h, pt deemed safe for d/c to home and follow up with Filomena in the clinic. pt received dialysis during hospitalization, diuretics were eventually titrated, Aldactone was decreased to 50mg but torsemide and ACEI was stopped. As;irin was held during hospitalization, however, if pt remains to have brown stools without GI sx, pt was encouraged to resume aspirin given CVD risks. 86-year-old white male with CHF,ESRD on HD, HTN, DM, COPD, CAD s/p CABG, s/p AAA repair, and liver cirrhosis p/w episode of fall Acute, active s/p fall, POA, hx suggestive of orthostic, possible micturition syncope or withdrawl from midodrine or medication induced from a1 antagonist, BP runs SBP80 -90s far below his baseline, although relatively asymptomatic, it is likely contributing to his presentation. Orthostatic vs + as pt was symptomatic. -pt remains clinically stable with blood transfusion, midodrine -s/p midorine 5mg tid 10/18-, stopped per -hold home diuretics per , continue to hold BPH meds -telemetry given significant CAD hx, Superficial 12cm forehead laceration due to fall, s/p sutured, POA, CTH neg despite Aspirin use. -hold off aspirin for now -OP FU for surgery or ED for suture removal. anemia of chronic dz or kidney dz, probable GIB, POA, hgb7 close to the last one in dialysis yesterday 7.1. s/p 1unit on 10/17 and 1unit 10/18. tolerated well. FOBT+ and pt has new onset melena for 1month on aspirin concerning for UGIB. -h/h keep trending down without active s/s of bleeding -continue PPI 40mg bid, EGD canceled after weighing risks and benefits per GI/ anesthesia, -target hgb>9 given hx of CAD, will consider more transfusion given h/h today. -serial cbc q12h for now, significant hypotension, hx of HTN, POA, management as above, hold off home ACEI , midodrine was held per , remained stable. Chronic, stable ESRD on HD, HD as scheduled, appreciate renal recs. Diabetes mellitus, last a1c 7.0 in , controlled, continue with lispro SS , fsg qac hs. chronic HFrEF on diuretics, mildly overloaded on exam, try achieve dry wt from HD. ischemic cardiomyopathy, CAD s/p 5 vessel CABG, asymptomatic, COPD, controlled, chronic A. fib not on AC due to hx of SDH, pt was taking aspirin since episode of SDH. close neurocheck for any worsening neurologic sx/sign hepatic cirrhosis with anasarca, stable BPH, stable, hold off on terazosin. AAA repaired, not active dispo:d/c likely 1-2days home diet:renal dvt ppx:SCD DNR/DNI Time spent 35min Angel Buckley MD Oct 20, 2016 15:42 Report status: Draft Transcribed by: MOLLY 10/20/16 1542 REPORT#: [id number] Exam Vital Signs (Last) Date Time Temp Pulse Resp B/P Pulse Ox O2 Delivery O2 Flow Rate FiO2 10/21/16 14:06 36.8 72 18 104/57 98 Nasal Cannula 2.00 Exam pt was examined on the day of d/c Test 10/17/16 04:53 10/18/16 13:00 10/19/16 18:35 10/19/16 20:59 Hold Purple Top Tube Received (Received) Hold Blue Top Tube Received (Received) Hold [place] Top Tube Received (Received) Hold [place] Top Tube Received (Received) Hold Urine Received (Received) Magnesium Level 1.7mg/dL (1.6-2.6) Urine Color Yellow (YELLOW) Urine Appearance Turbid (CLEAR,HAZY) Urine pH 8.5 (5.0-8.0) Urine Specific [place] 1.010 (1.003-1.035) Urine Protein 100mg/dL (NEG,TRACE) Urine Glucose (UA) Negativemg/dL (NEGATIVE) Urine Ketones Negativemg/dL (NEGATIVE) Urine Occult Blood Small (NEGATIVE) Urine Nitrite Negative (NEGATIVE) Urine Bilirubin Negative (NEGATIVE) Urine Urobilinogen Normalmg/dL (NORMAL) Urine Leukocyte Esterase Large (NEGATIVE) Urine RBC 3-10/hpf (0-2) Urine WBC >50/hpf (0-5) Urine Epithelial Cells Few/hpf (NONE-MOD) Urine Crystals None seen (NONE SEEN) Urine Bacteria Moderate/hpf (NONE-FEW) Urine Hyaline Casts None/lpf (NONE) Urine Granular Casts None seen (NONE SEEN) Urine Waxy Casts None seen (NONE SEEN) Urine Red Blood Cell Casts None seen (NONE SEEN) Urine White Blood Cell Casts None seen (NONE SEEN) Urine Mucus None seen (None Seen) Urine Trichomonas None seen (NONE SEEN) Urine Yeast None (NONE SEEN) Urinalysis Comment None Urine Culture Reflexed Indicated Test 10/20/16 06:24 10/21/16 06:20 Phosphorus Level 3.2mg/dL (2.5-4.9) White Blood Count 6.0th/mm3 (3.8-10.1) Red Blood Count 2.51mil/mm3 (4.40-5.80) Hemoglobin 8.2g/dL (13.8-17.2) Hematocrit 25.3% (41.0-50.0) Mean Corpuscular Volume 100.8fL (81-100) Mean Corpuscular Hemoglobin 32.7pg (27.0-35.0) Mean Corpuscular Hemoglobin Concent 32.4% (32.0-37.0) Red Cell Distribution Width 18.3% (12.3-15.4) Platelet Count 108bil/L (150-400) Neutrophils (%) (Auto) 69.2% (40-74) Lymphocytes (%) (Auto) 17.1% (14-46) Monocytes (%) (Auto) 10.3% (4-12) Eosinophils (%) (Auto) 3.0% (0-5) Basophils (%) (Auto) 0.2% (0-3) Sodium Level 135mEq/L (134-144) Potassium Level 4.3mEq/L (3.5-5.2) Chloride Level 97mEq/L (97-108) Carbon Dioxide Level 22mmol/L (18-29) Blood Urea Nitrogen 49mg/dL (8-27) Creatinine 3.62mg/dL (0.76-1.27) Estimat Glomerular Filtration Rate 17mL/min (>59) Glucose Level 114mg/dL (60-99) Calcium Level 8.3mg/dL (8.5-10.1) Total Bilirubin 1.1mg/dL (0.0-1.2) Aspartate Amino Transf (AST/SGOT) 19U/L (0-50) Alanine Aminotransferase (ALT/SGPT) 15U/L (0-44) Alkaline Phosphatase 153U/L (25-160) Total Protein 5.5g/dL (6.4-8.4) Albumin 3.3g/dL (3.4-5.0) Discharge Medications Discharge Medications Allopurinol (Allopurinol) 100 Mg Tablet 100 MG PO QAM (Reported) Arformoterol Tartrate (Brovana) 15 Mcg/2 Ml Vial.neb 15 MCG IH BID (Reported) Ascorbic Acid (Vitamin C) 500 Mg Capsule.er 500 MG PO QAM (Reported) Aspirin (Aspirin) 81 Mg Tablet 81 MG PO QAM (Reported) Atorvastatin Calcium (Atorvastatin Calcium) 20 Mg Tablet 20 MG PO HS (Reported) Brimonidine Tartrate (Brimonidine 0.2% Oph Soln) 5 Ml Drops 1 GTT LEFT_EYE TID ( Reported) Cider Vinegar (Apple Cider Vinegar) 600 Mg Capsule 600 MG PO DAILY (Reported) Cyanocobalamin (Vitamin B-12) (Vitamin B-12) 50 Mcg Tablet 100 MCG PO DAILY ( Reported) Dorzolamide (Dorzolamide) 10 Ml Drops 1 GTT BOTH_EYES BID (Reported) Fluticasone Propionate (Flovent HFA 220 mcg) 12 Gm Aer.w.adap 1 PUFF IH BID ( Reported) Latanoprost (Latanoprost) 2.5 Ml Drops 1 GTT BOTH_EYES HS (Reported) Metoprolol Succinate ER (Metoprolol Succinate ER) 25 Mg Tab.er.24h 25 MG PO DAILY (Reported) Multivitamin (Multivitamins) 1 Each Capsule 1 EACH PO DAILY (Reported) Nitroglycerin 0.2 mg/hr Patch (Nitroglycerin 0.2 mg/hr Patch) 1 Each Patch 0.2 MG TRANSDERM QPM (Reported) APPLY AT 1900, OFF AT [address] (Pantoprazole [address]) 40 Mg Tablet.dr 40 MG PO DAILY Prescribed by: ANGEL BUCKLEY MD Spironolactone (Spironolactone) 100 Mg Tablet 50 MG PO DAILY Prescribed by: ANGEL BUCKLEY MD As needed Colchicine (Colchicine) 0.6 Mg Capsule 0.6 MG PO DAILY PRN PRN gout (Reported) Insulin Glargine (Lantus U100 Solostar Insulin Pen) 100 Unit/1 Ml Insuln.pen 12 UNIT SUBQ QAM PRN PRN blood sugar >150 (Reported) Levalbuterol HCl (Xopenex Concentrate) 1.25 Mg/0.5 Ml Vial.neb 1.25 MG IH BID PRN PRN For Shortness of Breath (Reported) Additional med instructions Your prostate medication: Flomax, Terazosin were held. Please discontinue until further notice. Please also stop taking Torsemide as per kidney doctor, you can continue Spironolactone 50mg( from 100mg) daily Please note that Fosinopril was also stopped given your blood pressure. Please take Pantoprazole 40mg daily given concern for possible stomach bleeding, Followup Plan Discharge Diet: Renal Diet Discharge Activity: No restrictions Patient Instructions You were hospitalized after episode of fall from dizziness. You were found to have significantly low blood pressure, likely contributed to your dizziness and fall. You required multiple blood transfusion given severe blood loss anemia, however, given your baseline heart condition, endoscopy was not persued. Since your are in stable condition but high risks fall, your underlying medical condition, resume home health, physical therapy, nursing at home. Please take extra caution when you walk especially when your feel lightheaded, take time to move. Please continue dialysis and medication as instructed above Given concern for stomach bleeding, you were strongly recommended to see GI doctor in the clinic for possibly referral to tertiary hospital at . Follow-up Provider: Lam Duron MD Follow-up with PCP in: 1 week Angel Buckley MD Oct 21, 2016 20:01
== END 2016-10-21 15:35 | disposition home health service (06) | DRG 987 ==
LOC: SED 04:48 → OBSVTOIN 09:02 → MPC 09:02
PROVIDERS: ADMIT Internal Medicine; ATTEND Internal Medicine
PROC: 0JQ10ZZ Repair Face Subcutaneous Tissue and Fascia, Open Approach (ICD-10-PCS; principal; 2016-10-17)
PROC: 30233N1 Transfusion of Nonautologous Red Blood Cells into Peripheral Vein, Percutaneous Approach (ICD-10-PCS; 2016-10-17)
PROC: 30233N1 Transfusion of Nonautologous Red Blood Cells into Peripheral Vein, Percutaneous Approach (ICD-10-PCS; 2016-10-18)
PROC: 5A1D00Z (ICD-10-PCS; 2016-10-19)
PROC: 30233N1 Transfusion of Nonautologous Red Blood Cells into Peripheral Vein, Percutaneous Approach (ICD-10-PCS; 2016-10-21)
PROC: 5A1D00Z (ICD-10-PCS; 2016-10-21)
DX: I95.2 Hypotension due to drugs (principal); N18.6 End stage renal disease; I50.22 Chronic systolic (congestive) heart failure; I13.2 Hypertensive heart and chronic kidney disease with heart failure and with stage 5 chronic kidney disease, or end stage renal disease; K92.1 Melena; T44.4X5A Adverse effect of predominantly alpha-adrenoreceptor agonists, initial encounter; Z99.2 Dependence on renal dialysis; K74.60 Unspecified cirrhosis of liver; S01.81XA Laceration without foreign body of other part of head, initial encounter; W18.12XA Fall from or off toilet with subsequent striking against object, initial encounter; Y93.E8 Activity, other personal hygiene; Y92.002 Bathroom of unspecified non-institutional (private) residence as the place of occurrence of the external cause; Z79.4 Long term (current) use of insulin; D63.1 Anemia in chronic kidney disease; I48.2 Chronic atrial fibrillation; I25.10 Atherosclerotic heart disease of native coronary artery without angina pectoris; Z95.1 Presence of aortocoronary bypass graft; E11.21 Type 2 diabetes mellitus with diabetic nephropathy; Z87.891 Personal history of nicotine dependence; I27.2 Other secondary pulmonary hypertension

== ENCOUNTER 2016-11-06 07:12 | Emergency (ER) | payer MEDICARE, OTHER ==
[~2016-11-06] VITALS: Ht 182.9 cm; Wt 81.4 kg
[~2016-11-06 07:12] MED LIST changes: -FOSI20TA3 PO; -MIDO5TAB PO; +PANT40TA3 PO; -TAMS0.4C98 PO; -TERA10CA5 PO; -TORS20TA PO
[2016-11-06 07:19] VITALS: BP 112/69; PULSE 87; RESP 18; O2SAT 94
--- NOTE | 2016-11-06 07:31 | ED.REPORT ---
HPI-Extremity Problem Lower Date of Service Nov 06, 2016 ED Provider: Teddy Andrews MD Patient is an 86 year old male with a hx of ESRD on dialysis, CHF, COPD, HTN, and DM who presents to the ED complaining of L calf pain and swelling with a nodule onset last night. Pt also needs sutures from his forehead removed that were placed 20 days ago. He denies fevers, chills, sweats, or any other symptoms. He has dialysis at 11 am today. Nursing Notes Stated Complaint: PAIN IN LEFT CALF Chief Complaint: Extremity Trauma Nursing Notes Reviewed: Yes Allergies: Coded Allergies: Heparin Analogues (Verified Allergy, Severe, bleeding, 11/06/16) warfarin (Verified Allergy, Severe, bleeding, 11/06/16) dabigatran etexilate (Verified Adverse Reaction, Severe, bled into lungs, 11/06/16) Scheduled Allopurinol (Allopurinol) 100 Mg Tablet 100 MG PO QAM Arformoterol Tartrate (Brovana) 15 Mcg/2 Ml Vial.neb 15 MCG IH BID Ascorbic Acid (Vitamin C) 500 Mg Capsule.er 500 MG PO QAM Aspirin (Aspirin) 81 Mg Tablet 81 MG PO QAM Atorvastatin Calcium (Atorvastatin Calcium) 20 Mg Tablet 20 MG PO HS Brimonidine Tartrate (Brimonidine 0.2% Oph Soln) 5 Ml Drops 1 GTT LEFT_EYE TID Cider Vinegar (Apple Cider Vinegar) 600 Mg Capsule 600 MG PO DAILY Cyanocobalamin (Vitamin B-12) (Vitamin B-12) 50 Mcg Tablet 100 MCG PO DAILY Dorzolamide (Dorzolamide) 10 Ml Drops 1 GTT BOTH_EYES BID Fluticasone Propionate (Flovent HFA 220 mcg) 12 Gm Aer.w.adap 1 PUFF IH BID Latanoprost (Latanoprost) 2.5 Ml Drops 1 GTT BOTH_EYES HS Metoprolol Succinate ER (Metoprolol Succinate ER) 25 Mg Tab.er.24h 25 MG PO DAILY Multivitamin (Multivitamins) 1 Each Capsule 1 EACH PO DAILY Nitroglycerin 0.2 mg/hr Patch (Nitroglycerin 0.2 mg/hr Patch) 1 Each Patch 0.2 MG TRANSDERM QPM APPLY AT 1900, OFF AT 7 AM Pantoprazole (Pantoprazole DR) 40 Mg Tablet.dr 40 MG PO DAILY Spironolactone (Spironolactone) 100 Mg Tablet 50 MG PO DAILY Scheduled PRN Colchicine (Colchicine) 0.6 Mg Capsule 0.6 MG PO DAILY PRN PRN gout Insulin Glargine (Lantus U100 Solostar Insulin Pen) 100 Unit/1 Ml Insuln.pen 12 UNIT SUBQ QAM PRN PRN blood sugar >150 Levalbuterol HCl (Xopenex Concentrate) 1.25 Mg/0.5 Ml Vial.neb 1.25 MG IH BID PRN PRN For Shortness of Breath General Time Seen by MD: 07:26 Chief Complaint Leg injury left Hx Obtained From: Patient Arrived By: Walk-in Onset Occurred: Yesterday Symptom Duration: Since onset Location: : Leg left Quality: Painful Severity: Current: Severe Severity: Maximum: Severe Associated with: Reports: Swelling Pertinent Negative: Pt denies other symptoms Immunizations: Unknown Past Medical History Past Medical History Notes: PCP: Dr. Yoo Prize Jacker Celestine Past Medical History Cataracts/glaucoma Insulin dependent diabetes CHF Chronic atrial fibrillation History of subdural hematoma - divya holes by [facility], now off anticoagulation (2014) COPD Chronic hypotension BPH ESRD on dialysis MWF History of skin cancer Abdominal aneurysm s/p endograft Pulmonary hypertension Hyperlipidemia Hepatic cirrhosis with anasarca Coronary artery disease s/p 5 vessel CABG 1982 with redo bypass 1992 Ischemic Cardiomyopathy [id number] MR Emphysema Kidney stone Past Surgical History Abdominal aneurysm Popliteal Cyst removal Craniotomy T&A Reports: CABG, Cataract surgery, Cholecystectomy Family History Father had [place] at age 54 Mother had stroke Smoking History Former Smoker Social History Alcohol Use: "Social" Drug Use: Denies drug use Other Social History: Lives alone, Local resident Ambulatory Status Independent Review of Systems Constitutional: Denies: Chills, Fever Musculoskeletal: Reports: Extremity pain, Extremity swelling Skin: Denies Diaphoresis Complete sys rev & neg: except as marked. Physical Exam Initial Vital Signs Vital Signs (First) Date Time Temp Pulse Resp B/P Pulse Ox O2 Delivery O2 Flow Rate FiO2 11/06/16 07:19 36.6 87 18 112/69 94 Room Air Initial VS: Reviewed, Vital signs normal Neck: Supple Respiratory: No respiratory distress Cardiovascular: Intact distal pulses Neurologic: Alert, Oriented, Nonfocal Lower Extremity / Pelvis / MS: Full range of motion Bilateral peripheral edema below the knees, L>R. Warmth and dark redness on the L. Tender palpable mass to the lateral aspect of the mid-lower left leg Ankle / Foot: Atraumatic, Inspection NL General/Constitutional: Awake, Alert Head / Eyes: Normocephalic Well healed midline laceration on the forehead, sutures now removed. Abdomen: Atraumatic, Non-tender Liver edge palpable and firm Re-Eval/Medical Decision Re-Evaluation/Progress : Time of Eval: 08:20 Re-Evaluation/Progress Note: Discussed plan for discharge with abx after dialysis. Patient understands and agrees with plan. All questions addressed at this time. Consultation : Referral / Consult Name: Terra Banks MD Consulted With: Nephrology Call Returned at: 08:24 Manager Materials Management: Agrees with plan Note: Discussed pt's case and plan for abx after dialysis. Counseled Regarding: Diagnosis, Need for follow-up, When/why to return to ED Discharge & Departure Impression: Primary Impression: Left leg cellulitis Disposition: Home Discharge Condition All VS Reviewed: Yes Condition: Stable Patient Instructions: Cellulitis (ED) Additional Instructions: will arrange for antibiotics after dialysis today. Tylenol as needed for pain Referrals: Tamy Johnson (PCP) Khoa Attestation Portions of this note were transcribed by Nomi Sarabia. I, Dr. Andrews personally performed the history, physical exam and medical decision-making; I reviewed and confirmed the accuracy of the information in the transcribed note. Signed by: Khoa Jones, 11/06/16 copies to: Tamy Johnson Kirk H MD Nov 06, 2016 07:31 NOMI SARABIA Nov 06, 2016 08:19
[2016-11-06 09:00] VITALS: BP 100/53; PULSE 62
== END 2016-11-06 08:40 | disposition home or self-care (01) ==
LOC: SED 07:12
DX: L03.116 Cellulitis of left lower limb (principal); E11.9 Type 2 diabetes mellitus without complications; I50.9 Heart failure, unspecified; I12.0 Hypertensive chronic kidney disease with stage 5 chronic kidney disease or end stage renal disease; N18.6 End stage renal disease; I48.91 Unspecified atrial fibrillation; E78.5 Hyperlipidemia, unspecified; I25.10 Atherosclerotic heart disease of native coronary artery without angina pectoris; S01.81XD Laceration without foreign body of other part of head, subsequent encounter; Z87.891 Personal history of nicotine dependence; Z87.442 Personal history of urinary calculi; Z85.828 Personal history of other malignant neoplasm of skin; Z86.79 Personal history of other diseases of the circulatory system; Z99.2 Dependence on renal dialysis; Z95.1 Presence of aortocoronary bypass graft; Z90.49 Acquired absence of other specified parts of digestive tract; Z79.4 Long term (current) use of insulin; Z79.51 Long term (current) use of inhaled steroids; Z88.8 Allergy status to other drugs, medicaments and biological substances